=== PATIENT | female | born 1930 | race Caucasian/White ===

== ENCOUNTER 2017-03-01 18:52 | Inpatient (IN) | payer MEDICARE, OTHER ==
[~2017-03-01] VITALS: Ht 162.6 cm; Wt 80.0 kg
[~2017-03-01 18:52] MED LIST: GLIP-95 PO; VALS40TA2 PO
[2017-03-01 19:05] VITALS: Ht 162.6 cm; Wt 80.0 kg
[2017-03-01] MEDS ORDERED: IPRATROPIUM (NEB) 0.5 MG/2.5 ML AMP NEB STA (19:17)
[2017-03-01] MEDS ORDERED: ALBUTEROL 0.083% (NEB) 2.5 MG/3 ML AMP NEB STA (19:17)
[2017-03-01 19:29] LABS: AADO2 Arterial 84.6 mmHg (7.0-24.0); Allen Test ACCEPTAB; Arterial Base Excess 2.3 mmol/L (-3.0-3); Arterial COHb 0.5 % (0.0-3.0); Arterial Fraction of Oxyhgb 91.4 % (93.0-99.0); Arterial HCO3 29.3 mmol/L (22.0-26.0); Arterial MetHb 0.1 % (0.0-1.5); Arterial Total Hemglobin 13.2 g/dl (12.0-18.0); MODE NASAL CANNULA
[2017-03-01 19:48] LABS: ADD SCAN DIFF NO
[2017-03-01 19:50] LABS: ABNORMAL IP MESSAGE 1; BASOPHIL # 0.1 10^3/ul (0.0-0.1); BASOPHILS % 0.4 % (0.0-2.0); EOSINOPHILS % 0.1 % (0.0-7.0); HEMATOCRIT 39.8 % (37.0-47.0); HEMOGLOBIN 12.4 g/dl (12.0-16.0); LYMPHOCYTES # 1.1 10^3/ul (0.8-2.9); MEAN CORPUSCULAR HEMOGLOBIN 30.6 pg (29.0-33.0); MEAN CORPUSCULAR HGB CONC 31.2 g/dl (32.0-37.0); MEAN CORPUSCULAR VOLUME 98.3 fl (82.0-101.0); MEAN PLATELET VOLUME 11.2 fl (7.4-10.4); MONOCYTE # 1.5 10^3/ul (0.3-0.9); MONOCYTES % 8.4 % (0.0-11.0); NEUTROPHIL # 15.1 10^3/ul (1.6-7.5); NEUTROPHILS % 84.4 % (39.0-77.0); PLATELET COUNT 279 10^3/UL (140-415); RED BLOOD COUNT 4.05 10^6/ul (4.20-5.40); RED CELL DISTRIBUTION WIDTH 14.2 % (11.5-14.5)
--- NOTE | 2017-03-01 20:05 | RADRPT ---
PROCEDURE: XR Chest 1 View. CLINICAL INDICATION: Shortness of breath, sepsis. TECHNIQUE: AP view of the chest was obtained. COMPARISON: June 13, 2014 FINDINGS: The heart size is within normal limits. Calcified atherosclerosis is noted in the aorta. Diffuse mi ld interstitial prominence in both lungs appears chronic. No consolidations are identified. No pneu mothorax is seen. Calcified granuloma in the right upper lobe is stable. Osseous structures are inta ct. IMPRESSION: Calcified atherosclerosis in the aorta. Chronic mild interstitial prominence in both lungs. Stable calcified granuloma in the right upper lobe. RPTAT: AA .Porfirio Jensen MD, Date Time Electronically viewed and signed by .Porfirio Jensen MD, on 03/01/2017 20:05 .P/
[2017-03-01 20:06] LABS: INR 1.02; PROTIME 13.4 Sec (12.2-14.2)
[2017-03-01 20:07] LABS: PARTIAL THROMBOPLASTIN TIME 31.4 Sec (25.0-35.0)
[2017-03-01 20:09] LABS: ALBUMIN 4.5 g/dl (3.3-4.9); ALBUMIN/GLOBULIN RATIO 1.28; BILIRUBIN,INDIRECT 0.3 mg/dl (0-1.1); BILIRUBIN,TOTAL 0.3 mg/dl (0.2-1.3); CALCIUM 9.7 mg/dl (8.4-10.2); CREATININE 1.13 mg/dl (0.44-1.00); POTASSIUM 4.1 mmol/L (3.5-5.1)
[2017-03-01] MEDS ORDERED: CEFEPIME 2GM/50 ML (PMX) 50 ML IVPB STA (20:16)
[2017-03-01] MEDS ORDERED: SOD CHLORIDE 0.9% 1,000 ML IV STA ×2 (20:16→20:28)
[2017-03-01 20:23] LABS: TROPONIN-I 0.187 ng/ml (0.00-0.12)
--- NOTE | 2017-03-01 20:25 | ERA ---
ER Documentation Chief Complaint Date/Time DATE: 03/01/17 TIME: 20:20 Chief Complaint Productive cough with lots of yellow phlegm HPI This 86-year-old female presents to the emergency room for evaluation of shortness of breath and a cough productive of yellow phlegm. According to the patient and the patient's family member was at bedside this patient has had the symptoms for 2 days duration. She denies any fevers associated with them but does state that she is feeling short of breath. The patient does have a history of hypertension, hyperlipidemia, and diabetes. She denies any aggravating or relieving factors for her symptoms and came to the emergency room for evaluation ROS All systems reviewed and are negative except as per history of present illness. Medications Home Meds Reported Medications Valsartan* (Diovan*) Unknown Strength Tablet, PO DAILY, TAB 06/13/14 Glipizide* (Glipizide*) 10 Mg Tablet, 20 MG PO BID 10/03/11 Allergies Allergies: Coded Allergies: No Known Allergy (Unverified , 06/13/14) PMhx/Soc History of Surgery: No Anesthesia Reaction: No Hx Neurological Disorder: No Hx Respiratory Disorders: No Hx Cardiac Disorders: Yes (HIGH CHOLESTEROL) Hx Psychiatric Problems: No Hx Miscellaneous Medical Probl: Yes (dm) Hx Alcohol Use: No Hx Substance Use: No Hx Tobacco Use: Yes Smoking Status: Former smoker Physical Exam Vitals Vital Signs Date Time Temp Pulse Resp B/P Pulse Ox O2 Delivery O2 Flow Rate FiO2 03/01/17 19:38 98 3.0 03/01/17 19:38 Nasal Cannula 2 03/01/17 19:37 109 22 98 Nasal Cannula 3.0 03/01/17 19:05 125 28 123/53 77 Physical Exam INITIAL VITAL SIGNS: Reviewed by me GENERAL: The patient is elderly female, mild respiratory distress, HEENT: Pupils equal, round, and reactive to light. EOMI. There is no scleral icterus. NECK: C-spine is soft and supple, there is no meningismus. There is no cervical lymphadenopathy. LUNGS: Coarse breath sounds bilaterally HEART: Tachycardic, no murmurs, clicks, rubs or gallops. ABDOMEN: Soft, non-tender, non-distended. There are bowel sounds in all four quadrants. No rebound or guarding. EXTREMITIES: There is no peripheral cyanosis or edema. No focal swelling or erythema. NEUROLOGICAL: The patient moves all four extremities with 5/5 strength. Cranial nerves II - XII are intact. Normal gait. Alert and oriented SKIN: There is no apparent rash or petechiae. HEME/LYMPHATIC: There is no evidence of excessive bruising or lymphedema. PSYCHIATRIC: The patient does not appear anxious or depressed. Result Diagram: 03/01/17191403/01/171914 Results 24 hrs Laboratory Tests Test 03/01/17 19:15 03/01/17 19:17 White Blood Count 18.010^3/ul Red Blood Count 4.0510^6/ul Hemoglobin 12.4g/dl Hematocrit 39.8% Mean Corpuscular Volume 98.3fl Mean Corpuscular Hemoglobin 30.6pg Mean Corpuscular Hemoglobin Concent 31.2g/dl Red Cell Distribution Width 14.2% Platelet Count 01507^3/UL Mean Platelet Volume 11.2fl Neutrophils % 84.4% Lymphocytes % 6.0% Monocytes % 8.4% Eosinophils % 0.1% Basophils % 0.4% Nucleated Red Blood Cells % 0.0/100WBC Neutrophils # 15.110^3/ul Lymphocytes # 1.110^3/ul Monocytes # 1.510^3/ul Eosinophils # 0.010^3/ul Basophils # 0.110^3/ul Nucleated Red Blood Cells # 0.010^3/ul Prothrombin Time 13.4Sec Prothrombin Time Ratio 1.0 INR International Normalized Ratio 1.02 Activated Partial Thromboplast Time 31.4Sec Sodium Level 136mmol/L Potassium Level 4.1mmol/L Chloride Level 96mmol/L Carbon Dioxide Level 32mmol/L Anion Gap 12 Blood Urea Nitrogen 32mg/dl Creatinine 1.13mg/dl Glucose Level 315mg/dl Lactic Acid Level 2.5mmol/L Calcium Level 9.7mg/dl Total Bilirubin 0.3mg/dl Direct Bilirubin 0.00mg/dl Indirect Bilirubin 0.3mg/dl Aspartate Amino Transf (AST/SGOT) 23IU/L Alanine Aminotransferase (ALT/SGPT) 25IU/L Alkaline Phosphatase 137IU/L Troponin I Pending Total Protein 8.0g/dl Albumin 4.5g/dl Globulin 3.50g/dl Albumin/Globulin Ratio 1.28 Blood Gas Specimen Source Blood arterial Arterial Blood Date Drawn 03/01/2017 7:20:43 PM Arterial Blood pH (Temp corrected) 7.339 Arterial Blood pCO2 (Temp correct) 55.6mmhg Arterial Blood pO2 (Temp corrected) 64.0mmHG Arterial Blood HCO3 29.3mmol/L Arterial Blood Base Excess 2.3mmol/L Arterial Blood Oxygen Saturation 92.0mmHG Pablo Test ACCEPTAB Arterial Blood Gas Puncture Site Right Radial Arterial Blood Carboxyhemoglobin 0.5% Arterial Blood Methemoglobin 0.1% Blood Gas A-a O2 Differential 84.6mmHg Oxyhemoglobin Percent 91.4% Total Hemoglobin 13.2g/dl Blood Gas Temperature 37.0C Blood Gas Modality NASAL CANNULA FiO2 30.0% Blood Gas Notified Whom MG Blood Gas Notified Time 03/01/2017 7:29:12 PM Current Medications Medications (Trade) Dose Ordered Sig/All Route PRN Reason Start Time Stop Time Status Last Admin Dose Admin Albuterol (Proventil 0.083% (Neb)) 5 mg ONCE STAT NEB 03/01/17 19:17 03/01/17 19:18 DC 03/01/17 19:37 Ipratropium Dewitt 0.5 mg 0.5 mg ONCE STAT NEB 03/01/17 19:17 03/01/17 19:18 DC 03/01/17 19:36 Cefepime HCl 50 ml @ 100 mls/hr ONCE STAT IVPB 03/01/17 20:16 03/01/17 20:45 Vancomycin HCl 250 ml @ 125 mls/hr ONCE ONCE IVPB 03/01/17 20:30 03/01/17 22:29 Sodium Chloride (NS) 1,000 ml @ 1,000 mls/hr Q1H STAT IV 03/01/17 20:16 03/01/17 21:15 Procedures/MDM EKG: Rate/Rhythm: Sinus tachycardia with premature atrial, QRS, ST, T-waves: [No changes consistent w/ acute ischemia] Impression: [No evidence of ischemia or arrhythmia] Chest X-ray 1V Interpreted by me: Soft Tissue: No acute abnormalities Bones: No acute abnormalities Mediastinum/Cardiac Silhouette/Lungs: [No acute abnormalities] This 86-year-old female presents to the emergency room for evaluation of a cough and shortness of breath. When I evaluated this patient she was tachypnea , tachycardic, and did have a pulse oxygen level of 77% on room air. This patient did have a septic workup. She does have leukocytosis, and an elevated troponin. This patient's chest x-ray does not show any acute infiltrate however given the patient's clinical picture this patient was started on vancomycin and cefepime broad-spectrum coverage for possible pneumonia. This patient is hemodynamically stable at this time. She was not given 30 cc/kg of IV normal saline due to the fact that she does have signs of peripheral edema on my examination with 1+ pitting edema in the bilateral lower extremities. The patient was given 325 mg of aspirin. She will be placed in for admission at this time on our telemetry floor under the care of Dr. Kurtz. Cardiac Critical Care: Excluding all billable procedures Time: 35 minutes Treatments/Evaluations: Close monitoring for dangerous arrhythmia and cardiovascular collapse, while treating with advance cardiac medications and techniques. Departure Diagnosis: Primary Impression: Acute respiratory failure with hypoxia Additional Impressions: Sepsis Non-ST elevation PR (NSTEMI) Renal insufficiency Condition: Serious SHIRA SUMNER DO Mar 01, 2017 20:25
[2017-03-01] MEDS ORDERED: METHYLPREDNISOLONE 125 MG INJ IV STA (20:27)
[2017-03-01] MEDS ORDERED: ALBUTEROL 0.5% (NEB) 2.5 MG/0.5 ML AMP INH STA (20:27)
[2017-03-01] MEDS ORDERED: IPRATROPIUM (NEB) 0.5 MG/2.5 ML AMP INH STA (20:27)
[2017-03-01] MEDS ORDERED: ASPIRIN 325 MG TAB PO ONE (20:30)
[2017-03-01] MEDS ORDERED: ACETAMINOPHEN 325 MG TAB PO PRN (20:30)
[2017-03-01] MEDS ORDERED: VANCOMYCIN 1 GM (PMX) 250 ML IVPB ONE (20:30)
[2017-03-01] MEDS ORDERED: ONDANSETRON 4 MG INJ IV PRN (20:30)
[2017-03-01 20:42] VITALS: TEMP 99.3
[2017-03-01] MEDS ORDERED: VALS80TA2 PO (20:45)
[2017-03-01] MEDS ORDERED: ASPI-664 PO (20:46)
[2017-03-01] MEDS ORDERED: DICL75TA2 PO (20:47)
[2017-03-01] MEDS ORDERED: DONE5TAB46 PO (20:48)
[2017-03-01] MEDS ORDERED: ATOR40TA68 PO (20:49)
[2017-03-01] MEDS ORDERED: SITA100T8 PO (20:50)
[2017-03-01] MEDS ORDERED: METF750T2 PO (20:50)
[2017-03-01] MEDS ORDERED: INSU200I4 SQ (20:51)
[2017-03-01] MEDS ORDERED: IOHEXOL 350MG/ML 50 ML BTL ONE (20:57)
[2017-03-01] MEDS ORDERED: SOD CHLORIDE 0.9% 100 ML ONE (20:57)
[2017-03-01] MEDS ORDERED: IOHEXOL 100 ML ONE (20:57)
[2017-03-01 21:44] LABS: ADD UMIC YES; UR AMORPHOUS CRYSTAL FEW /HPF (NONE SEEN); UR ASCORBIC ACID NEGATIVE (NEGATIVE); UR BACTERIA FEW /HPF (NONE SEEN); UR BILIRUBIN (Dip) NEGATIVE (NEGATIVE); UR BLOOD (Dip) NEGATIVE (NEGATIVE); UR CLARITY CLOUDY (CLEAR); UR COLOR YELLOW (YELLOW); UR GLUCOSE (Dip) 1+ mg/dL (NEGATIVE); UR KETONES (Dip) NEGATIVE (NEGATIVE); UR LEUKOCYTE ESTERASE (Dip) NEGATIVE Leu/ul (NEGATIVE); UR MUCUS FEW /HPF (NONE SEEN); UR NITRITE (Dip) NEGATIVE (NEGATIVE); UR RBC 1 /HPF (0-5); UR SPECIFIC GRAVITY (Dip) 1.019 (1.003-1.030); UR SQUAMOUS EPITHELIAL CELL FEW /HPF (FEW); UR TOTAL PROTEIN (Dip) 2+ mg/dl (NEGATIVE); UR UROBILINOGEN (Dip) NEGATIVE (NEGATIVE)
[2017-03-01] MEDS ORDERED: LORAZEPAM 2 MG INJ IV ONE (22:00)
[2017-03-01] MEDS ORDERED: SUCCINYLCHOLINE CHLORIDE 100 MG/5 ML SYG IV ONE (23:00)
[2017-03-01] MEDS ORDERED: MIDAZOLAM 1 MG/ML 2 ML INJ ONE (23:00)
[2017-03-01] MEDS ORDERED: DILTIAZEM 25 MG INJ IV ONE (23:30)
[2017-03-01] MEDS ORDERED: PROPOFOL 100 ML IV ONE (23:30)
[2017-03-01] MEDS ORDERED: ETOMIDATE 20 MG INJ IV ONE (23:30)
[2017-03-01 23:52] LABS: AADO2 Arterial 194.3 mmHg (7.0-24.0); Allen Test ACCEPTAB; Arterial Base Excess -6.7 mmol/L (-3.0-3); Arterial COHb 0.3 % (0.0-3.0); Arterial Fraction of Oxyhgb 98.8 % (93.0-99.0); Arterial HCO3 22.9 mmol/L (22.0-26.0); Arterial MetHb 0.3 % (0.0-1.5); Arterial Total Hemglobin 11.9 g/dl (12.0-18.0); MODE VENT - AC
--- NOTE | 2017-03-01 23:55 | RADRPT ---
PROCEDURE: Portable chest x-ray. CLINICAL INDICATION: Endotracheal tube placement. TECHNIQUE: Portable AP view of the chest. COMPARISON: 06/13/2014. FINDINGS: An endotracheal tube terminates 2.4 cm above the darling. There are mildly prominent interstitial jericho g markings, increased since the prior examination. The cardiac silhouette is magnified. No pleural effusion is seen. There is no pneumothorax. IMPRESSION: 1. Endotracheal tube tip 2.4 cm above the darling. 2. Mildly prominent interstitial lung markings, increased since the prior examination. These are no nspecific but could represent interstitial edema, a viral chest infection, and/or chronic lung enrique es. RPTAT: HTAR .Jacinto Bender MD, MD Date Time Electronically viewed and signed by .Jacinto Bender MD, on 03/01/2017 23:55 .R/
[2017-03-02] VITALS (91 sets, daily range): BP systolic 68–153; BP diastolic 29–74; PULSE 64–152; RESP 18–22
[2017-03-02] MEDS ORDERED: SUCCINYLCHOLINE CHLORIDE 100 MG/5 ML SYG IV ONE
--- NOTE | 2017-03-02 00:03 | RADRPT ---
PROCEDURE: CTA Chest and pulmonary angiogram. CLINICAL INDICATION: Rule out pulmonary emboli, shortness of breath, sepsis TECHNIQUE: CT scan of the chest and CT pulmonary angiogram was performed on a multidetector high-r esolution CT scanner. High-resolution thin slice coronal and sagittal imaging was obtained from the axial source images. No 3-D/maximum intensity projection reformatted imaging was performed. The pat ient was examined following the intravenous administration of 80 cc of Omnipaque-350. The images wer e reviewed on a PACS workstation. The total exam CTDI equals 22.53 +14.51 mGy, and the total exam DL P equals 560.17 mGy-cm. One or more the following dose reduction techniques were utilized: Automated exposure control, adjus tment of the mA and / or kV according to patient's size, or use of iterative reconstruction techniqu e. COMPARISON: Chest x-ray of 03/01/2017 FINDINGS: No filling defects suggestive of emboli are seen in main, lobar or segmental pulmonary arteries. At herosclerotic changes including calcification in thoracoabdominal aorta and great vessels. Ulcerativ e plaque is apparent in the descending thoracic aorta. No thoracic aortic aneurysm or dissection is seen. Coronary artery calcification. Calcification in bilateral renal and superior mesenteric and splenic arteries. No enlarged mediastinal lymph nodes are seen. Less than 1 cm short-axis lymph nod es are seen in the mediastinum and bilateral lung sofía. Calcified lymph nodes in the right hilum con sistent with old granulomatous disease . No pleural effusion is seen. Scattered linear atelectasis/f ibrosis is seen in the lungs. Calcified granuloma in the right upper lung lobe. "Tree in bud" opac ities in right lower lobe and right middle lobe consistent with infectious/inflammatory bronchioliti s. Peribronchial thickening in bilateral lower lobes which could be secondary to bronchitis and mild cylindrical bronchiectasis. Likely minimal secretions in the bilateral main bronchi. Small hi atal hernia apparent. Appearance of nonspecific mild diffuse esophageal wall thickening in the mid t o lower thoracic esophagus which could be secondary to esophagitis. Calcified granulomas in spleen. No adrenal abnormality is seen. Degenerative changes in thoracic spine. IMPRESSION: No evidence of pulmonary emboli. Atherosclerosis. Ulcerative plaque in the descending thoracic aort a. "Tree in bud" opacities in right lower lobe and right middle lobe consistent with infectious/infl ammatory bronchiolitis. Peribronchial thickening in bilateral lower lobes which could be secondary t o bronchitis and mild cylindrical bronchiectasis. Small hiatal hernia apparent. Appearance of nonsp ecific mild diffuse esophageal wall thickening in the mid to lower thoracic esophagus which could be secondary to esophagitis. Please see above. RPTAT: HJES .Domenic Brown MD, MD Date Time Electronically viewed and signed by .Domenic Brown MD, MD on 03/02/2017 00:02 .S/
[2017-03-02] MEDS ORDERED: ACETAMINOPHEN 650 MG SUPP PR PRN (00:30)
[2017-03-02] MEDS ORDERED: GLUCOSE GEL 15 GRAM TUBE PO PRN ×2 (00:30)
[2017-03-02] MEDS ORDERED: DEXTROSE 50% 50 ML SYRINGE IV PRN ×4 (00:30→04:30)
[2017-03-02] MEDS ORDERED: GLUCAGON 1 MG INJ IM PRN (00:30)
[2017-03-02] MEDS ORDERED: VANCOMYCIN IV PER PHARMACY XX SCH (00:30)
[2017-03-02] MEDS ORDERED: SOD CHLORIDE 0.9% 1,000 ML IV ONE ×2 (00:30→02:00)
[2017-03-02] MEDS ORDERED: ALBUTEROL 18 GM INHALER INH PRN (00:30)
[2017-03-02] MEDS ORDERED: GLUCOSE GEL 15 GRAM TUBE BUCCAL PRN (00:30)
[2017-03-02] MEDS: PIPER-TAZO 3.375 GM IV (PMX) 100 ML IVPB SCH ×4 (00:50→21:46)
[2017-03-02] MEDS ORDERED: INSULIN ASPART [NOVOLOG] 3 ML PEN SC SCH (01:00)
[2017-03-02] MEDS ORDERED: MIDAZOLAM 1 MG/ML 2 ML INJ IV ONE (01:00)
--- NOTE | 2017-03-02 01:18 | EN ---
Date/Time of Note Date/Time of Note DATE: 03/02/17 TIME: 01:17 ER Progress Note Patient decompensated here in the ER. Became severely obtunded. Necessitated intubation. Blood pressure also dropped precipitously. Central line placed as well. Endotracheal Intubation by me: Pre assessment performed. See preceding note for details. Pre-oxygenation performed with 100% oxygen RSI: Performed w/o complication or hypoxic events. Medications as ordered. Blade: [Mac 4] ET Tube: 7.5 cm Depth: [23 cm at the lip Intubation confirmed by colorimetric CO2, equal breath sounds, quiet over the stomach. Chest X-ray 1V Interpreted by me: 2 cm above the darling ET tube. Normal soft tissue, No pneumothorax. Central Line Placement by me: Patient consented, sterilely draped, full prep, gown, glove, mask, time out performed. Anesthesia: 1% lidocaine locally Location: Left subclavian Device: Multiple lumen Technique: Seldinger technique. Secured with suture. Results: Venous return from all ports with easy saline flush. No complications. Guide wire retrieved and disposed of. [Chest X-ray 1V Interpreted by me: Central line in SVC, Normal soft tissue, No evidence of pneumothorax.] Critical Care: Time: 45 minutes Treatments/Evaluations: Close monitoring and treatment of unstable vital signs, cardiorespiratory, and neurologic status, while maintaining tight balance of fluid, respiratory, and cardiac interventions. This time is independent of separate billable procedure time AIXA SANDRA Mar 02, 2017 01:18
[2017-03-02] MEDS ORDERED: AZITHROMYCIN 500MG/NS (PMX) 250 ML IVPB ONE (01:30)
[2017-03-02] MEDS ORDERED: DILTIAZEM 25 MG INJ IV ONE ×2 (02:00→02:30)
[2017-03-02] MEDS ORDERED: ACCU-CHEK XX SCH (02:00)
[2017-03-02] MEDS: SOD CHLORIDE 0.9% 1,000 ML IV SCH ×4 (02:27→21:16)
[2017-03-02] MEDS ORDERED: SOD CHLORIDE 0.9% 500 ML IV ONE (02:30)
[2017-03-02 02:36] LABS: Arterial Base Excess -3.5 mmol/L (-3.0-3); Arterial COHb 0.3 % (0.0-3.0); Arterial Fraction of Oxyhgb 94.3 % (93.0-99.0); Arterial HCO3 22.7 mmol/L (22.0-26.0); Arterial MetHb 0.3 % (0.0-1.5); Arterial Total Hemglobin 11.4 g/dl (12.0-18.0); Blood Gas Low PEEP Setting 0 cmH2O; MODE VENT - AC
[2017-03-02] MEDS ORDERED: DILTIAZEM-D5W 125MG/125ML DRIP 125 ML ONE (02:58)
[2017-03-02] MEDS ORDERED: DILTIAZEM-D5W 125MG/125ML DRIP 125 ML IV SCH (03:00)
--- NOTE | 2017-03-02 03:18 | RADRPT ---
PROCEDURE: XR Chest. CLINICAL INDICATION: Post central line TECHNIQUE: Single frontal view of the chest was obtained COMPARISON: Chest x-ray of 03/01/2017 at 11:20 p.m. and CTA chest of 03/01/2017 FINDINGS: The tip of the endotracheal tube is approximately 2.1 cm above the darling. Left subclavian catheter has been placed into the superior vena cava with the tip near the atriocaval junction. No pneumotho rax is seen. The heart is not enlarged. Calcification in the aortic arch. Diffuse bilateral increas ed interstitial lung densities again seen. There is no pleural effusion seen. ECG lead projected over chest. IMPRESSION: Left subclavian catheter has been placed into the superior vena cava with the tip near the atriocava l junction. No pneumothorax is seen. Diffuse bilateral increased interstitial lung densities likely inflammatory/chronic again seen accentuated by hypoinflation of the lungs. Please see above. RPTAT: HJES .Domenic Brown MD, MD Date Time Electronically viewed and signed by .Domenic Brown MD, on 03/02/2017 03:18 .S/
--- NOTE | 2017-03-02 03:49 | HP ---
Date/Time of Note Date/Time of Note DATE: 03/02/17 TIME: 03:34 Assessment/Plan VTE Prophylaxis VTE Prophylaxis Intervention: SCD's Lines/Catheters IV Catheter Type (from Nrs): Central Line Central line still needed: Yes (Hypertension) Urinary Cath still in place: Yes Reason Cath still needed: other (indicate) ( critical condition) Assessment/Plan Chief Complaint/Hosp Course This is a 86-year-old female being admitted to the ICU floor for: #1 acute respiratory failure: Patient needed urgent intubation as she acutely decompensated. This likely could be secondary to underlying respiratory infection as demonstrated on CT scan. Continue mechanical ventilation at this time. Repeat ABG. Adjust vent settings. Consult pulmonology #2 Severe sepsis: White blood cell count of 18 with a lactate above 4. CT scan showing possible respiratory infection. At the current time we will treat patient with IV vancomycin and Zosyn. Vasopressor support as needed. IV fluid hydration with normal saline. #3 tachycardia: Likely secondary to #2 and #1. Patient received Cardizem IV push which did help resolve the tachycardia. If this persists despite fluid resuscitation will start Cardizem drip. Will consult cardiology. Will trend troponins. Will order an echocardiogram. #4 suspected esophagitis: CAT scan showed presence of possible esophagitis. At the current time will start patient on IV fluconazole. Will consult endocrinology for further treatment strategy. May need GI consult. #5diabetes mellitus: Check A1c start patient on insulin sliding scale. #6hypertension: At the current time will hold home antihypertensive medication secondary to patient's hypotension. #7 DVT and GI prophylaxis: SCDs, Protonix Further treatment strategy will be implemented as per the clinical course. Problems: HPI/ROS Admit Date/Time Admit Date/Time Mar 01, 2017 at 20:20 Hx of Present Illness Chief complaint: Shortness of breath, cough The following information below was obtained from the ED physician documentation. This 86-year-old female presented to the emergency room for evaluation of shortness of breath and a cough productive of yellow phlegm. According to the patient and the patient's family member was at bedside this patient has had the symptoms for 2 days duration. She denies any fevers associated with them but does state that she is feeling short of breath. The patient does have a history of hypertension, hyperlipidemia, and diabetes. She denies any aggravating or relieving factors for her symptoms and came to the emergency room for evaluation. After returning from the CAT scan, patient decompensated and was obtunded and it was necessary to intubate her. Patient was then subsequently admitted to the ICU. Allergies: NKDA Medications: See ANETTE COELHO Subjective hx not possible: pt critical, pt critical status PMH/Family/Social Past Medical History Hyperlipidemia, diabetes, hypertension Past Surgical History Past Surgical Hx: no surgical history Family History Significant Family History: no pertinent family hx Social History Smoking Status: Former smoker Exam/Review of Systems Vital Signs Vitals Vital Signs Date Time Temp Pulse Resp B/P Pulse Ox O2 Delivery O2 Flow Rate FiO2 03/02/17 03:15 145 20 95 40 03/02/17 03:00 116/64 Mechanical Ventilator 03/02/17 02:07 97.8 03/01/17 22:02 3.0 Exam Exam General: Patient is currently intubated. HEENT: Atraumatic, normocephalic. The pupils are equal, round and reactive. Extraocular motor are intact, intubated Neck: Supple with full range of motion. No rigidity or meningismus Chest: Nontender Lungs: Coarse breath sounds at the bases. Heart: Normal S1-S2, Regular rhythm and rate. No murmur, S3, or S4 Abdomen: Soft , nontender, nondistended , bowel sounds are present. No guarding no rebound tenderness , No masses or organomegaly. No costovertebral temporal angle mass Extremities: Normal to inspection, no edema no cyanosis Neurologic: Unable to assess secondary to patient being intubated. Labs Result Diagram: 03/01/17191403/01/171914 Medications Medications Current Medications Sodium Chloride (NS) 1,000 ml @ 70 mls/hr [id number] IV Last administered on 03/02 02:27; Admin Dose 70 MLS/HR; Start 03/02/17 at 00:12 Acetaminophen (Tylenol Supp) 650 mg Q4H PRN SC PAIN LEVEL 1-3 OR FEVER; Start 03/02/17 at 00:30 Pantoprazole (Protonix Iv) 40 mg DAILY@06 IV ; Start 03/02/17 at 06:00 Insulin Aspart NOVOLOG *MODERATE* ALGORI... Q4 SC Last administered on 02:24; Admin Dose 12 UNIT; Start 03/02/17 at 01:00 Piperacillin Sod/ Tazobactam Sod (Zosyn 3.375gm/ 100 ml (Pmx)) 100 ml @ 200 mls /hr Q8 IVPB Last administered on 03/02/17 00:50; Admin Dose 200 MLS/HR; Start 03/02/17 at 00:30 Miscellaneous Information 1 ea NOTE XX ; Start 03/02/17 at 00:30 Glucose (Glutose) 15 gm Q15M PRN PO DECREASED GLUCOSE; Start 03/02/17 at 00:30 Glucose (Glutose) 22.5 gm Q15M PRN PO DECREASED GLUCOSE; Start 03/02/17 at 00: 30 Dextrose (D50w Syringe) 25 ml Q15M PRN IV DECREASED GLUCOSE; Start 03/02/17 at 00:30 Dextrose (D50w Syringe) 50 ml Q15M PRN IV DECREASED GLUCOSE; Start 03/02/17 at 00:30 Glucagon (Glucagen) 1 mg Q15M PRN IM DECREASED GLUCOSE; Start 03/02/17 at 00:30 Glucose 15 gm 15 gm Q15M PRN BUCCAL DECREASED GLUCOSE; Start 03/02/17 at 00:30 Vancomycin HCl 250 ml @ 125 mls/hr Q24H IVPB ; Start 03/02/17 at 17:00 Norepinephrine 16 mg/Dextrose 500 ml @ 1.87 mls/hr TITRATE IV Last administered on 03/02/17 02:23; Admin Dose 9.37 MLS/HR; Start 03/02/17 at 01:00 Diltiazem HCl (Cardizem-D5W 125 Mg/125 ml Drip) 125 ml @ 5 mls/hr TITRATE IV Last administered on 03/02/17 03:08; Admin Dose 5 MLS/HR; Start 03/02/17 at 03: 00 MICHELLE MORENO Mar 02, 2017 03:45
[2017-03-02] MEDS: ACCU-CHEK XX SCH ×20 (04:33→23:37)
[2017-03-02] MEDS: INSULIN HUMAN REGULAR 100 UNIT in SOD CHLORIDE 0.9% 99 ML IV SCH (05:09)
[2017-03-02 05:30] LABS: ABNORMAL IP MESSAGE 1; ADD SCAN DIFF NO; BASOPHIL # 0.1 10^3/ul (0.0-0.1); BASOPHILS % 0.3 % (0.0-2.0); HEMATOCRIT 34.2 % (37.0-47.0); HEMOGLOBIN 10.5 g/dl (12.0-16.0); LYMPHOCYTES # 0.6 10^3/ul (0.8-2.9); LYMPHOCYTES % 2.5 % (15.0-51.0); MEAN CORPUSCULAR HEMOGLOBIN 30.3 pg (29.0-33.0); MEAN CORPUSCULAR HGB CONC 30.7 g/dl (32.0-37.0); MEAN CORPUSCULAR VOLUME 98.8 fl (82.0-101.0); MEAN PLATELET VOLUME 11.4 fl (7.4-10.4); MONOCYTE # 0.9 10^3/ul (0.3-0.9); MONOCYTES % 3.7 % (0.0-11.0); NEUTROPHIL # 22.2 10^3/ul (1.6-7.5); PLATELET COUNT 274 10^3/UL (140-415); RED BLOOD COUNT 3.46 10^6/ul (4.20-5.40); RED CELL DISTRIBUTION WIDTH 14.5 % (11.5-14.5); WHITE BLOOD COUNT 23.9 10^3/ul (4.8-10.8)
[2017-03-02] MEDS: FLUCONAZOLE 200 MG/NS (PMX) 100 ML IVPB SCH (05:33)
[2017-03-02 05:36] LABS: NEUTROPHILS % 92.8 % (39.0-77.0)
[2017-03-02 06:19] LABS: CK-MB 4.55 ng/ml (0.0-2.4); TROPONIN-I 0.424 ng/ml (0.00-0.12)
[2017-03-02 06:33] LABS: ALBUMIN 3.1 g/dl (3.3-4.9); ALBUMIN/GLOBULIN RATIO 1.29; CALCIUM 8.2 mg/dl (8.4-10.2); CREATININE 0.83 mg/dl (0.44-1.00); TOTAL PROTEIN 5.5 g/dl (6.1-8.1)
[2017-03-02] MEDS: PANTOPRAZOLE 40 MG INJ IV SCH (06:41)
[2017-03-02 08:17] LABS: AADO2 Arterial 147.3 mmHg (7.0-24.0); Allen Test ACCEPTAB; Arterial Base Excess -2.7 mmol/L (-3.0-3); Arterial COHb 0.1 % (0.0-3.0); Arterial Fraction of Oxyhgb 97.3 % (93.0-99.0); Arterial HCO3 21.8 mmol/L (22.0-26.0); Arterial MetHb 0.2 % (0.0-1.5); Arterial Total Hemglobin 11.7 g/dl (12.0-18.0); MODE VENT - AC
--- NOTE | 2017-03-02 09:32 | CONS ---
Date/Time of Note Date/Time of Note DATE: 03/02/17 TIME: 09:20 Assessment/Plan Assessment/Plan Additional Assessment/Plan 1. P afib with RVR 2. acute hypoxemic respiratory failure: intubated now 3. + troponin: c.w NSTEMI due to demand ischemia due to above 4. DM and severely elevated glucose. 5. dyslipidemia 6. pneumonia/ sepsis 7. shock : appear to be related to sepsis: currently on levophed 8. hx memory impairment ASA daily plavix dc cardizem drip and will give IV cardizem prn only. will give a dose of dig now amiodarone drip for now DM Control with insulin drip for now. will start betablocker once BP is more stable and off of levophed will check echo will repeat cardiac enzymes in am replace lytes including K and Mg. cont ICU care Thank you for this referral. I will continue to follow along with you Consultation Date/Type/Reason Admit Date/Time Mar 01, 2017 at 20:20 Date of Consultation: Mar 02, 2017 Reason for Consultation AFIB. abnormal trop Thank you for his referral. This is a pleasant 89-year-old female with history of hypertension diabetes dyslipidemia was admitted with respiratory failure and possible pneumonia. Patient overnight was noted to be going to atrial fibrillation with ventricular response. She has been placed on Cardizem drip. She has converted to sinus rhythm since then heart has remained stable. She has very frequent PAC PVCs as well. Patient himself is intubated unable to provide history to me for. Chart was reviewed discussed with staff and physician conduct an active issue and nursing staff in the ICU. Troponin was also mildly elevated. There is no report of chest pain or pressure that I could obtain however again patient unable to history intubated on the vent. Patient has been sepsis and shock as well as been started on Levophed drip although slowly is coming off of it now. Patient currently intubated on the vent in the ICU on Levophed drip. Medications were reviewed as per medical records reviewed personally reviewed. Past medical history: 1. Diabetes 2. Hypertension 3. Dyslipidemia 4. Dementia. Social history patient with no reported active tobacco alcohol drug abuse. Family history no reported history of eloquently artery disease is as far as I could obtain. allergy: NKDA Review of system as above mentioned medical to obtain only however limited history could obtain from the patient. Past Surgical History Past Surgical Hx: no surgical history Social History Smoking Status: Former smoker Exam/Review of Systems Vital Signs Vitals Vital Signs Date Time Temp Pulse Resp B/P Pulse Ox O2 Delivery O2 Flow Rate FiO2 03/02/17 08:15 74 20 105/48 98 Mechanical Ventilator 03/02/17 08:00 98.7 03/02/17 05:53 40 03/01/17 22:02 3.0 Intake and Output 03/01/17 03/01/17 03/02/17 14:59 22:59 06:59 Intake Total 1066.36 ml Output Total 665 ml Balance 401.36 ml Exam General: intubated on vent. HEENT: NC/AT. pupils are constricted. round. NECK: NO JVD. no stridor. CV: RRR. systolic murmur; no gallop or rubs. PULM: no wheezing or rhonchi. GI: SOFT, NT, ND, no rebound or guarding Extremity: trace B/L LE edema. no clubbing. neuro: sedated . Psych: calm and pleasant rectal: deferred : normal ECG: sinus tachy with nonspecific St abn ECG 03/01/17 at 23;10: Afib RVR septal infarct CXR was reviewed. Results Result Diagram: 03/02/17 0500 03/02/17 0500 Results 24 hrs Laboratory Tests Test 03/01/17 19:15 03/01/17 19:17 03/01/17 21:13 03/01/17 21:50 White Blood Count 18.0 #H Red Blood Count 4.05 L Hemoglobin 12.4 Hematocrit 39.8 Mean Corpuscular Volume 98.3 Mean Corpuscular Hemoglobin 30.6 Mean Corpuscular Hemoglobin Concent 31.2 L Red Cell Distribution Width 14.2 Platelet Count 279 Mean Platelet Volume 11.2 #H Neutrophils % 84.4 H Lymphocytes % 6.0 L Monocytes % 8.4 Eosinophils % 0.1 Basophils % 0.4 Nucleated Red Blood Cells % 0.0 Neutrophils # 15.1 H Lymphocytes # 1.1 Monocytes # 1.5 H Eosinophils # 0.0 Basophils # 0.1 Nucleated Red Blood Cells # 0.0 Prothrombin Time 13.4 Prothrombin Time Ratio 1.0 INR International Normalized Ratio 1.02 Activated Partial Thromboplast Time 31.4 Sodium Level 136 Potassium Level 4.1 Chloride Level 96 L Carbon Dioxide Level 32 H Anion Gap 12 Blood Urea Nitrogen 32 H Creatinine 1.13 H Glucose Level 315 H Lactic Acid Level 2.5 H 4.2 *H Calcium Level 9.7 Total Bilirubin 0.3 Direct Bilirubin 0.00 Indirect Bilirubin 0.3 Aspartate Amino Transf (AST/SGOT) 23 Alanine Aminotransferase (ALT/SGPT) 25 Alkaline Phosphatase 137 H Troponin I 0.187 *H B-Type Natriuretic Peptide 2260 H Total Protein 8.0 Albumin 4.5 Globulin 3.50 H Albumin/Globulin Ratio 1.28 Blood Gas Specimen Source Blood arterial Arterial Blood Date Drawn 03/01/2017 7:20:43 PM Arterial Blood pH (Temp corrected) 7.339 L Arterial Blood pCO2 (Temp correct) 55.6 H Arterial Blood pO2 (Temp corrected) 64.0 L Arterial Blood HCO3 29.3 H Arterial Blood Base Excess 2.3 Arterial Blood Oxygen Saturation 92.0 L Pablo Test ACCEPTAB Arterial Blood Gas Puncture Site Right Radial Arterial Blood Carboxyhemoglobin 0.5 Arterial Blood Methemoglobin 0.1 Blood Gas A-a O2 Differential 84.6 H Oxyhemoglobin Percent 91.4 L Total Hemoglobin 13.2 Blood Gas Temperature 37.0 Blood Gas Modality NASAL CANNULA FiO2 30.0 Blood Gas Notified Whom MG Blood Gas Notified Time 03/01/2017 7:29:12 PM Urine Color YELLOW Urine Clarity CLOUDY A Urine pH 5.0 Urine Specific [place] 1.019 Urine Ketones NEGATIVE Urine Nitrite NEGATIVE Urine Bilirubin NEGATIVE Urine Urobilinogen NEGATIVE Urine Leukocyte Esterase NEGATIVE Urine Microscopic RBC 1 Urine Microscopic WBC 4 Urine Squamous Epithelial Cells FEW Urine Amorphous Crystals FEW A Urine Bacteria FEW A Urine Mucus FEW A Urine Hemoglobin NEGATIVE Urine Glucose 1+ H Urine Total Protein 2+ H Test 03/01/17 23:10 03/01/17 23:20 03/01/17 23:40 03/02/17 02:00 Lactic Acid Level 6.1 *H Bedside Glucose 444 *H 466 *H Blood Gas Specimen Source Blood arterial Arterial Blood Date Drawn 03/01/2017 11:47:36 PM Arterial Blood pH (Temp corrected) 7.151 *L Arterial Blood pCO2 (Temp correct) 67.0 H Arterial Blood pO2 (Temp corrected) 451.7 H Arterial Blood HCO3 22.9 Arterial Blood Base Excess -6.7 L Arterial Blood Oxygen Saturation 99.4 Pablo Test ACCEPTAB Arterial Blood Gas Puncture Site Right Radial Arterial Blood Carboxyhemoglobin 0.3 Arterial Blood Methemoglobin 0.3 Blood Gas A-a O2 Differential 194.3 H Oxyhemoglobin Percent 98.8 Total Hemoglobin 11.9 L Blood Gas Temperature 37.0 Blood Gas Respiration Rate 16.0 Blood Gas Actual Respiration Rate 16 Blood Gas Modality VENT - AC FiO2 100.0 Blood Gas Tidal Volume 500.0 Blood Gas Inspiratory Pressure 37.0 Blood Gas Critical Value Read Back Zachery SANDRA MD Blood Gas Notified Whom MG Blood Gas Notified Time 03/01/2017 11:52:27 PM Test 03/02/17 02:04 03/02/17 02:17 03/02/17 04:09 03/02/17 05:00 Lactic Acid Level 2.3 H Blood Gas Specimen Source Blood arterial Arterial Blood Date Drawn 03/02/2017 2:25:52 AM Arterial Blood pH (Temp corrected) 7.315 L Arterial Blood pCO2 (Temp correct) 45.6 H Arterial Blood pO2 (Temp corrected) 74.8 L Arterial Blood HCO3 22.7 Arterial Blood Base Excess -3.5 L Arterial Blood Oxygen Saturation 94.9 L Pablo Test N/A Arterial Blood Gas Puncture Site Right Brachial Arterial Blood Carboxyhemoglobin 0.3 Arterial Blood Methemoglobin 0.3 Blood Gas A-a O2 Differential 158.0 H Oxyhemoglobin Percent 94.3 Total Hemoglobin 11.4 L Blood Gas Temperature 37.0 Blood Gas Respiration Rate 20.0 Blood Gas Actual Respiration Rate 20 Blood Gas Modality VENT - AC FiO2 40.0 Blood Gas Tidal Volume 500.0 Blood Gas Low PEEP Setting 0 Blood Gas Notified Whom UP Blood Gas Notified Time 03/02/2017 2:36:28 AM Bedside Glucose 436 *H White Blood Count 23.9 #H Red Blood Count 3.46 L Hemoglobin 10.5 L Hematocrit 34.2 L Mean Corpuscular Volume 98.8 Mean Corpuscular Hemoglobin 30.3 Mean Corpuscular Hemoglobin Concent 30.7 L Red Cell Distribution Width 14.5 Platelet Count 274 Mean Platelet Volume 11.4 H Neutrophils % 92.8 H Lymphocytes % 2.5 L Monocytes % 3.7 Eosinophils % 0.0 Basophils % 0.3 Nucleated Red Blood Cells % 0.0 Neutrophils # 22.2 H Lymphocytes # 0.6 L Monocytes # 0.9 Eosinophils # 0.0 Basophils # 0.1 Nucleated Red Blood Cells # 0.0 Sodium Level 132 L Potassium Level 4.0 Chloride Level 104 Carbon Dioxide Level 25 Anion Gap 7 L Blood Urea Nitrogen 32 H Creatinine 0.83 Glucose Level 439 *H Calcium Level 8.2 L Total Bilirubin 0.0 L Direct Bilirubin 0.00 Indirect Bilirubin 0.0 Aspartate Amino Transf (AST/SGOT) 74 H Alanine Aminotransferase (ALT/SGPT) 68 Alkaline Phosphatase 196 H Total Protein 5.5 #L Albumin 3.1 #L Globulin 2.40 Albumin/Globulin Ratio 1.29 HIV (1&2) Antibody NEGATIVE Test 03/02/17 05:20 03/02/17 05:31 03/02/17 06:42 03/02/17 07:00 Creatine Kinase 204 H Creatine Kinase Index 2.2 Creatinine Kinase MB (Mass) 4.55 H Troponin I 0.424 *H Bedside Glucose 440 *H 243 H Blood Gas Specimen Source Blood arterial Arterial Blood Date Drawn 03/02/2017 7:50:56 AM Arterial Blood pH (Temp corrected) 7.392 Arterial Blood pCO2 (Temp correct) 36.7 Arterial Blood pO2 (Temp corrected) 95.7 H Arterial Blood HCO3 21.8 L Arterial Blood Base Excess -2.7 Arterial Blood Oxygen Saturation 97.6 Pablo Test ACCEPTAB Arterial Blood Gas Puncture Site Right Radial Arterial Blood Carboxyhemoglobin 0.1 Arterial Blood Methemoglobin 0.2 Blood Gas A-a O2 Differential 147.3 H Oxyhemoglobin Percent 97.3 Total Hemoglobin 11.7 L Blood Gas Temperature 37.0 Blood Gas Respiration Rate 20.0 Blood Gas Actual Respiration Rate 20 Blood Gas Modality VENT - AC FiO2 40.0 Blood Gas Tidal Volume 500.0 Blood Gas Low PEEP Setting 5.0 Blood Gas Notified Whom JLD Blood Gas Notified Time 03/02/2017 8:17:33 AM Test 03/02/17 07:42 03/02/17 08:49 Bedside Glucose 404 *H 346 H Medications Medications Current Medications Sodium Chloride (NS) 1,000 ml @ 70 mls/hr [id number] IV Last administered on 03/02t 08:53; Admin Dose 70 MLS/HR; Start 03/02/17 at 00:12 Acetaminophen (Tylenol Supp) 650 mg Q4H PRN [place] PAIN LEVEL 1-3 OR FEVER; Start 03/02/17 at 00:30 Pantoprazole 40 mg 40 mg DAILY@06 IV Last administered on 03/02/17 06:41; Admin Dose 40 MG; Start 03/02/17 at 06:00 Piperacillin Sod/ Tazobactam Sod (Zosyn 3.375gm/ 100 ml (Pmx)) 100 ml @ 200 mls /hr Q8 IVPB Last administered on 03/02/17 06:41; Admin Dose 200 MLS/HR; Start 03/02/17 at 00:30 Miscellaneous Information 1 ea NOTE XX ; Start 03/02/17 at 00:30 Glucose (Glutose) 15 gm Q15M PRN PO DECREASED GLUCOSE; Start 03/02/17 at 00:30 Glucose (Glutose) 22.5 gm Q15M PRN PO DECREASED GLUCOSE; Start 03/02/17 at 00: 30 Dextrose (D50w Syringe) 25 ml Q15M PRN IV DECREASED GLUCOSE; Start 03/02/17 at 00:30 Dextrose (D50w Syringe) 50 ml Q15M PRN IV DECREASED GLUCOSE; Start 03/02/17 at 00:30 Glucagon (Glucagen) 1 mg Q15M PRN IM DECREASED GLUCOSE; Start 03/02/17 at 00:30 Glucose 15 gm 15 gm Q15M PRN BUCCAL DECREASED GLUCOSE; Start 03/02/17 at 00:30 Vancomycin HCl 250 ml @ 125 mls/hr Q24H IVPB ; Start 03/02/17 at 17:00 Norepinephrine 16 mg/Dextrose 500 ml @ 1.87 mls/hr TITRATE IV Last administered on 03/02/17 02:23; Admin Dose 9.37 MLS/HR; Start 03/02/17 at 01:00 Diltiazem HCl 125 ml @ 5 mls/hr TITRATE IV Last administered on 03/02/17 03:08 ; Admin Dose 5 MLS/HR; Start 03/02/17 at 03:00 Fluconazole (Diflucan 200 Mg/ NS (Pmx)) 100 ml @ 100 mls/hr Q24H IVPB Last administered on 03/02/17 05:33; Admin Dose 100 MLS/HR; Start 03/02/17 at 04:00 Diagnostic Test (Pha) (Accu-Chek) 1 ea Q1H XX Last administered on 03/02/17 06 :43; Admin Dose 1 EA; Start 03/02/17 at 04:30 Dextrose (D50w Syringe) 25 ml Q15M PRN IV Till BS 80 mg/dL or above x2; Start 03/02/17 at 04:30 Dextrose 50 ml 50 ml Q15M PRN IV Till BS 80 mg/dL or above x2; Start 03/02/17 at 04:30 Propofol (Diprivan) 100 ml @ 2.4 mls/hr Q12H IV ; Start 03/02/17 at 05:30 TYREE MCKOY MD Mar 02, 2017 09:31
--- NOTE | 2017-03-02 09:49 | RADRPT ---
Echocardiogram Report Patient Name: BENJAMÍN GARY Gender: Female Date: 1930 Study Date: 02-Mar-2017 Primary Care Nurse Practitioner: Matt [facility] Location: 102 Ref. Physician: TYREE OCONNOR Quality: Technically Difficult Study Procedures: Transthoracic echocardiogram with complete 2D, M-Mode, and doppler examination. Indications: Resp. Failure/ AFIB. 2D/M Mode Doppler Measurement Value Normal Ranges Measurement Value Normal Ranges LVIDd 2D 2.9 3.5 - 5.6 cm AV Peak Flako 1.6 m/sec LVIDs 2D 2.4 2.1 - 4.1 cm AV Peak PG 10.0 mmHg FS 2D 16.4 % LVOT Peak Flako 1.0 m/sec LVPWd 2D 1.3 0.6 - 1.1 cm LVOT Peak PG 4.0 mmHg IVSd 2D 1.3 0.6 - 1.1 cm MV E Peak Flako 0.9 m/sec IVS/LVPW 2D 1.0 MV A Peak Flako 0.9 m/sec AoR Diam 2D 2.1 2.0 - 3.7 cm MV E/A 1.0 LA/Ao 2D 1 0 - 1 MV Decel Time 243 msec EDV 2D 23.6 cm3 MV E/A 1.0 ESV 2D 13.8 cm3 TR Peak Flako 2.0 m/sec LA Dimen 2D 3.1 2.3 - 4.0 cm TR Peak PG 16.0 mmHg RVSP 26.0 mmHg Findings Left Ventricle: Normal left ventricular systolic function. Normal left ventricular cavity size. Mild concentric left ventricular hypertrophy. Ejection fraction is visually estimated at 55 %. Tissue Doppler/Mitral Doppler indices are consistent with impaired relaxation (Stage I diastolic dysfunction). Right Ventricle: Normal right ventricular size. Normal right ventricular systolic function. Left Atrium: The left atrium is normal in size. Right Atrium: The right atrium is normal in size. Mitral Valve: Mitral valve leaflets appear mildly thickened. Mild mitral annular calcification. Trace mitral regurgitation. Aortic Valve: No significant aortic stenosis or insufficiency. Aortic sclerosis without stenosis. Tricuspid Valve: Normal appearance of the tricuspid valve. Estimated peak PA systolic pressure 26 mmHg. There is mild tricuspid regurgitation. Pericardium: Normal pericardium with no significant pericardial effusion. Aorta: Normal aortic root. IVC: Inferior vena cava without respiratory collapse, however, patient on ventilator. Conclusions 1.Normal left ventricular systolic function. Normal left ventricular cavity size. Mild concentric left ventricular hypertrophy. Ejection fraction is visually estimated at 55 %. Tissue Doppler/Mitral Doppler indices are consistent with impaired relaxation (Stage I diastolic dysfunction). 2.The left atrium is normal in size. 3.Mitral valve leaflets appear mildly thickened. Mild mitral annular calcification. Trace mitral regurgitation. 4.No significant aortic stenosis or insufficiency. Aortic sclerosis without stenosis. 5.Normal appearance of the tricuspid valve. Estimated peak PA systolic pressure 26 mmHg. There is mild tricuspid regurgitation. Electronically Signed By: Tyree Oconnor 02-Mar-2017 09:48:44 -0700 Patient Name: BENJAMÍN GARY Study Date: 02-Mar-2017 [id number]
[2017-03-02] MEDS ORDERED: AMIODARONE 900 MG in DEXTROSE 5% 482 ML IV SCH (10:00)
[2017-03-02] MEDS ORDERED: AMIODARONE 150MG/D5W BOLUS 100 ML IV ONE (10:00)
[2017-03-02] MEDS ORDERED: DIGOXIN 500 MCG INJ IV ONE (10:00)
[2017-03-02] MEDS ORDERED: MAGNESIUM SULFATE 2 GM/50 ML 50 ML IVPB ONE (10:00)
[2017-03-02] MEDS: PROPOFOL 100 ML IV SCH ×3 (10:13→21:16)
[2017-03-02] MEDS: CLOPIDOGREL 75 MG TAB NGT SCH (10:15)
--- NOTE | 2017-03-02 10:42 | PN ---
Date/Time of Note Date/Time of Note DATE: 03/02/17 TIME: 10:22 Assessment/Plan VTE Prophylaxis VTE Prophylaxis Intervention: SCD's Lines/Catheters IV Catheter Type (from Nrs): Central Line Central line still needed: Yes Urinary Cath still in place: Yes Reason Cath still needed: other (indicate) Assessment/Plan Chief Complaint/Hosp Course Assessment and plan 1. acute respiratory failure: /Acute decompensation respiratory failure Likely secondary to underlying respiratory infection Continue mechanical ventilation at this time. pulmonology consulted, vent management as per pulmonology Continue IV antibiotics and breathing treatment 2. Severe sepsis: Likely secondary to respiratory infection. Bronchiolitis versus bronchiectasis Continue IV vancomycin and Zosyn. Vasopressor support as needed. IV fluid hydration with normal saline. 3. Tachycardia: Likely secondary to #2 and #1. Continue Cardizem drip. cardiology consult has been obtained. echocardiogram demonstrated normal ejection fraction. 4. suspected esophagitis: Continue IV fluconazole. We will continue to monitor we will consult GI if necessary 5. diabetes mellitus: Continue insulin sliding scale. 6. History of essential hypertension: At the current time will hold home antihypertensive medication secondary to patient's hypotension. 7. DVT and GI prophylaxis: SCDs, Protonix Further treatment strategy will be implemented as per the clinical course. Problems: Subjective 24 Hr Interval Summary Free Text/Dictation Patient is intubated sedated and on pressors Vent setting 500 with FiO2 40% with PEEP of 5 A. fib rate controlled Sedation via propofol On Cardizem drip Exam/Review of Systems Vital Signs Vitals Vital Signs Date Time Temp Pulse Resp B/P Pulse Ox O2 Delivery O2 Flow Rate FiO2 03/02/17 09:30 84 20 96/48 98 Mechanical Ventilator 03/02/17 08:00 98.7 03/02/17 05:53 40 03/01/17 22:02 3.0 Intake and Output 03/01/17 03/01/17 03/02/17 15:00 23:00 07:00 Intake Total 1289.48 ml Output Total 745 ml Balance 544.48 ml Exam General: The patient is intubated and sedated, not in acute distress. HEENT: Atraumatic, normocephalic. The pupils are equal and symmetric Neck: Supple Chest: Normal Lungs: Clear to auscultation bilaterally Heart: Normal S1-S2, Regular rhythm and rate. Abdomen: Soft , nontender, nondistended , bowel sounds are present. Extremities: Normal to inspection, no edema no cyanosis Neurologic: Sedated Results Result Diagram: 03/02/17 0500 03/02/17 0500 Results 24 hrs Laboratory Tests Test 03/01/17 19:15 03/01/17 19:17 03/01/17 21:13 03/01/17 21:50 White Blood Count 18.0 #H Red Blood Count 4.05 L Hemoglobin 12.4 Hematocrit 39.8 Mean Corpuscular Volume 98.3 Mean Corpuscular Hemoglobin 30.6 Mean Corpuscular Hemoglobin Concent 31.2 L Red Cell Distribution Width 14.2 Platelet Count 279 Mean Platelet Volume 11.2 #H Neutrophils % 84.4 H Lymphocytes % 6.0 L Monocytes % 8.4 Eosinophils % 0.1 Basophils % 0.4 Nucleated Red Blood Cells % 0.0 Neutrophils # 15.1 H Lymphocytes # 1.1 Monocytes # 1.5 H Eosinophils # 0.0 Basophils # 0.1 Nucleated Red Blood Cells # 0.0 Prothrombin Time 13.4 Prothrombin Time Ratio 1.0 INR International Normalized Ratio 1.02 Activated Partial Thromboplast Time 31.4 Sodium Level 136 Potassium Level 4.1 Chloride Level 96 L Carbon Dioxide Level 32 H Anion Gap 12 Blood Urea Nitrogen 32 H Creatinine 1.13 H Glucose Level 315 H Lactic Acid Level 2.5 H 4.2 *H Calcium Level 9.7 Total Bilirubin 0.3 Direct Bilirubin 0.00 Indirect Bilirubin 0.3 Aspartate Amino Transf (AST/SGOT) 23 Alanine Aminotransferase (ALT/SGPT) 25 Alkaline Phosphatase 137 H Troponin I 0.187 *H B-Type Natriuretic Peptide 2260 H Total Protein 8.0 Albumin 4.5 Globulin 3.50 H Albumin/Globulin Ratio 1.28 Blood Gas Specimen Source Blood arterial Arterial Blood Date Drawn 03/01/2017 7:20:43 PM Arterial Blood pH (Temp corrected) 7.339 L Arterial Blood pCO2 (Temp correct) 55.6 H Arterial Blood pO2 (Temp corrected) 64.0 L Arterial Blood HCO3 29.3 H Arterial Blood Base Excess 2.3 Arterial Blood Oxygen Saturation 92.0 L Pablo Test ACCEPTAB Arterial Blood Gas Puncture Site Right Radial Arterial Blood Carboxyhemoglobin 0.5 Arterial Blood Methemoglobin 0.1 Blood Gas A-a O2 Differential 84.6 H Oxyhemoglobin Percent 91.4 L Total Hemoglobin 13.2 Blood Gas Temperature 37.0 Blood Gas Modality NASAL CANNULA FiO2 30.0 Blood Gas Notified Whom MG Blood Gas Notified Time 03/01/2017 7:29:12 PM Urine Color YELLOW Urine Clarity CLOUDY A Urine pH 5.0 Urine Specific [place] 1.019 Urine Ketones NEGATIVE Urine Nitrite NEGATIVE Urine Bilirubin NEGATIVE Urine Urobilinogen NEGATIVE Urine Leukocyte Esterase NEGATIVE Urine Microscopic RBC 1 Urine Microscopic WBC 4 Urine Squamous Epithelial Cells FEW Urine Amorphous Crystals FEW A Urine Bacteria FEW A Urine Mucus FEW A Urine Hemoglobin NEGATIVE Urine Glucose 1+ H Urine Total Protein 2+ H Test 03/01/17 23:10 03/01/17 23:20 03/01/17 23:40 03/02/17 02:00 Lactic Acid Level 6.1 *H Bedside Glucose 444 *H 466 *H Blood Gas Specimen Source Blood arterial Arterial Blood Date Drawn 03/01/2017 11:47:36 PM Arterial Blood pH (Temp corrected) 7.151 *L Arterial Blood pCO2 (Temp correct) 67.0 H Arterial Blood pO2 (Temp corrected) 451.7 H Arterial Blood HCO3 22.9 Arterial Blood Base Excess -6.7 L Arterial Blood Oxygen Saturation 99.4 Pablo Test ACCEPTAB Arterial Blood Gas Puncture Site Right Radial Arterial Blood Carboxyhemoglobin 0.3 Arterial Blood Methemoglobin 0.3 Blood Gas A-a O2 Differential 194.3 H Oxyhemoglobin Percent 98.8 Total Hemoglobin 11.9 L Blood Gas Temperature 37.0 Blood Gas Respiration Rate 16.0 Blood Gas Actual Respiration Rate 16 Blood Gas Modality VENT - AC FiO2 100.0 Blood Gas Tidal Volume 500.0 Blood Gas Inspiratory Pressure 37.0 Blood Gas Critical Value Read Back Zachery SANDRA MD Blood Gas Notified Whom MG Blood Gas Notified Time 03/01/2017 11:52:27 PM Test 03/02/17 02:04 03/02/17 02:17 03/02/17 04:09 03/02/17 05:00 Lactic Acid Level 2.3 H Blood Gas Specimen Source Blood arterial Arterial Blood Date Drawn 03/02/2017 2:25:52 AM Arterial Blood pH (Temp corrected) 7.315 L Arterial Blood pCO2 (Temp correct) 45.6 H Arterial Blood pO2 (Temp corrected) 74.8 L Arterial Blood HCO3 22.7 Arterial Blood Base Excess -3.5 L Arterial Blood Oxygen Saturation 94.9 L Pablo Test N/A Arterial Blood Gas Puncture Site Right Brachial Arterial Blood Carboxyhemoglobin 0.3 Arterial Blood Methemoglobin 0.3 Blood Gas A-a O2 Differential 158.0 H Oxyhemoglobin Percent 94.3 Total Hemoglobin 11.4 L Blood Gas Temperature 37.0 Blood Gas Respiration Rate 20.0 Blood Gas Actual Respiration Rate 20 Blood Gas Modality VENT - AC FiO2 40.0 Blood Gas Tidal Volume 500.0 Blood Gas Low PEEP Setting 0 Blood Gas Notified Whom UP Blood Gas Notified Time 03/02/2017 2:36:28 AM Bedside Glucose 436 *H White Blood Count 23.9 #H Red Blood Count 3.46 L Hemoglobin 10.5 L Hematocrit 34.2 L Mean Corpuscular Volume 98.8 Mean Corpuscular Hemoglobin 30.3 Mean Corpuscular Hemoglobin Concent 30.7 L Red Cell Distribution Width 14.5 Platelet Count 274 Mean Platelet Volume 11.4 H Neutrophils % 92.8 H Lymphocytes % 2.5 L Monocytes % 3.7 Eosinophils % 0.0 Basophils % 0.3 Nucleated Red Blood Cells % 0.0 Neutrophils # 22.2 H Lymphocytes # 0.6 L Monocytes # 0.9 Eosinophils # 0.0 Basophils # 0.1 Nucleated Red Blood Cells # 0.0 Sodium Level 132 L Potassium Level 4.0 Chloride Level 104 Carbon Dioxide Level 25 Anion Gap 7 L Blood Urea Nitrogen 32 H Creatinine 0.83 Glucose Level 439 *H Calcium Level 8.2 L Total Bilirubin 0.0 L Direct Bilirubin 0.00 Indirect Bilirubin 0.0 Aspartate Amino Transf (AST/SGOT) 74 H Alanine Aminotransferase (ALT/SGPT) 68 Alkaline Phosphatase 196 H Total Protein 5.5 #L Albumin 3.1 #L Globulin 2.40 Albumin/Globulin Ratio 1.29 HIV (1&2) Antibody NEGATIVE Test 03/02/17 05:20 03/02/17 05:31 03/02/17 06:42 03/02/17 07:00 Creatine Kinase 204 H Creatine Kinase Index 2.2 Creatinine Kinase MB (Mass) 4.55 H Troponin I 0.424 *H Bedside Glucose 440 *H 243 H Blood Gas Specimen Source Blood arterial Arterial Blood Date Drawn 03/02/2017 7:50:56 AM Arterial Blood pH (Temp corrected) 7.392 Arterial Blood pCO2 (Temp correct) 36.7 Arterial Blood pO2 (Temp corrected) 95.7 H Arterial Blood HCO3 21.8 L Arterial Blood Base Excess -2.7 Arterial Blood Oxygen Saturation 97.6 Pablo Test ACCEPTAB Arterial Blood Gas Puncture Site Right Radial Arterial Blood Carboxyhemoglobin 0.1 Arterial Blood Methemoglobin 0.2 Blood Gas A-a O2 Differential 147.3 H Oxyhemoglobin Percent 97.3 Total Hemoglobin 11.7 L Blood Gas Temperature 37.0 Blood Gas Respiration Rate 20.0 Blood Gas Actual Respiration Rate 20 Blood Gas Modality VENT - AC FiO2 40.0 Blood Gas Tidal Volume 500.0 Blood Gas Low PEEP Setting 5.0 Blood Gas Notified Whom JLD Blood Gas Notified Time 03/02/2017 8:17:33 AM Test 03/02/17 07:42 03/02/17 08:49 03/02/17 09:28 Bedside Glucose 404 *H 346 H 310 H Medications Medications Current Medications Sodium Chloride (NS) 1,000 ml @ 70 mls/hr [id number] IV Last administered on 03/02 08:53; Admin Dose 70 MLS/HR; Start 03/02/17 at 00:12 Acetaminophen (Tylenol Supp) 650 mg Q4H PRN [place] PAIN LEVEL 1-3 OR FEVER; Start 03/02/17 at 00:30 Pantoprazole 40 mg 40 mg DAILY@06 IV Last administered on 03/02/17 06:41; Admin Dose 40 MG; Start 03/02/17 at 06:00 Piperacillin Sod/ Tazobactam Sod (Zosyn 3.375gm/ 100 ml (Pmx)) 100 ml @ 200 mls /hr Q8 IVPB Last administered on 03/02/17 06:41; Admin Dose 200 MLS/HR; Start 03/02/17 at 00:30 Miscellaneous Information 1 ea NOTE XX ; Start 03/02/17 at 00:30 Glucose (Glutose) 15 gm Q15M PRN PO DECREASED GLUCOSE; Start 03/02/17 at 00:30 Glucose (Glutose) 22.5 gm Q15M PRN PO DECREASED GLUCOSE; Start 03/02/17 at 00: 30 Dextrose (D50w Syringe) 25 ml Q15M PRN IV DECREASED GLUCOSE; Start 03/02/17 at 00:30 Dextrose (D50w Syringe) 50 ml Q15M PRN IV DECREASED GLUCOSE; Start 03/02/17 at 00:30 Glucagon (Glucagen) 1 mg Q15M PRN IM DECREASED GLUCOSE; Start 03/02/17 at 00:30 Glucose 15 gm 15 gm Q15M PRN BUCCAL DECREASED GLUCOSE; Start 03/02/17 at 00:30 Vancomycin HCl 250 ml @ 125 mls/hr Q24H IVPB ; Start 03/02/17 at 17:00 Norepinephrine 16 mg/Dextrose 500 ml @ 1.87 mls/hr TITRATE IV Last administered on 03/02/17 02:23; Admin Dose 9.37 MLS/HR; Start 03/02/17 at 01:00 Fluconazole (Diflucan 200 Mg/ NS (Pmx)) 100 ml @ 100 mls/hr Q24H IVPB Last administered on 03/02/17 05:33; Admin Dose 100 MLS/HR; Start 03/02/17 at 04:00 Diagnostic Test (Pha) (Accu-Chek) 1 ea Q1H XX Last administered on 03/02/17 06 :43; Admin Dose 1 EA; Start 03/02/17 at 04:30 Dextrose (D50w Syringe) 25 ml Q15M PRN IV Till BS 80 mg/dL or above x2; Start 03/02/17 at 04:30 Dextrose 50 ml 50 ml Q15M PRN IV Till BS 80 mg/dL or above x2; Start 03/02/17 at 04:30 Propofol (Diprivan) 100 ml @ 2.4 mls/hr Q12H IV Last administered on 10:13; Admin Dose 7.2 MLS/HR; Start 03/02/17 at 05:30 Clopidogrel Bisulfate (plaVIX) 75 mg DAILY NGT Last administered on 03/02/17 10:15; Admin Dose 75 MG; Start 03/02/17 at 10:00 Aspirin 81 mg 81 mg DAILY NGT ; Start 03/03/17 at 09:00 Amiodarone HCl 900 mg/Dextrose 500 ml @ 0 mls/hr Q0M IV ; Start 03/02/17 at 10: 00 Magnesium Sulfate (Magnesium Sulfate 2 Gm/50 ml) 50 ml @ 25 mls/hr ONCE ONCE IVPB Last administered on 03/02/17 10:15; Admin Dose 25 MLS/HR; Start at 10:00; Stop 03/02/17 at 11:59 EVERTON TRACEY MD Mar 02, 2017 10:42
--- NOTE | 2017-03-02 10:52 | CONS ---
Date/Time of Note Date/Time of Note DATE: 03/02/17 TIME: 10:47 Assessment/Plan Assessment/Plan Additional Assessment/Plan Assessment 1. Hypoxemic and hypercapnic respiratory failure likely secondary to community- acquired pneumonia 2. Atrial flutter ablation rapid ventricular rate likely exacerbated by hypoxemia and cardiac ischemia 3. 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 Septic shock secondary to above Plan 1. Continue volume resuscitation 2. Broad-spectrum antibiotic coverage pending cultures 3. Follow serial lactates 4. Continue mechanical ventilation adjust for metabolic acidosis 5. Continue insulin drip for hyperglycemia 6. Vasopressor support Disposition Continue ICU care Family conference regarding past medical history and goals of care Consultation Date/Type/Reason Admit Date/Time Mar 01, 2017 at 20:20 Date of Consultation: Mar 02, 2017 Type of Consultation: Pulmonary Reason for Consultation Respiratory failure Hx of Present Illness 86-year-old lady presents with increasing shortness of breath orthopnea PND of 2 days duration. On admission she was noted to be markedly labored with subsequent obtunded respiratory status requiring emergent intubation and mechanical ventilation. She had central line placed for hypotension and is now been placed on vasopressors. In addition she has atrial fibrillation requiring initiation of Cardizem drip. Patient unable to give me further details currently no family members at bedside. Past Medical History Unknown Past Surgical History Past Surgical Hx: no surgical history Social History Smoking Status: Former smoker Exam/Review of Systems Vital Signs Vitals Vital Signs Date Time Temp Pulse Resp B/P Pulse Ox O2 Delivery O2 Flow Rate FiO2 03/02/17 09:30 84 20 96/48 98 Mechanical Ventilator 03/02/17 08:00 98.7 03/02/17 05:53 40 03/01/17 22:02 3.0 Intake and Output 03/01/17 03/01/17 03/02/17 15:00 23:00 07:00 Intake Total 1289.48 ml Output Total 745 ml Balance 544.48 ml Exam PHYSICAL EXAMINATION GENERAL: Elderly lady intubated on mechanical ventilation appears comfortable at rest on sedation VITAL SIGNS: see below. HEENT: Pupils equal, round, and reactive to light. CARDIAC: S1, S2, 1/6 systolic ejection murmur CHEST: Diminished air entry bilaterally. ABDOMEN: Mildly distended. Bowel sounds present no guarding or rebound EXTREMITIES: No cyanosis, clubbing edema +1 NEUROLOGIC: Generalized weakness Results CT chest demonstrating no evidence of pulmonary embolism but evidence of acute bronchiolitis right middle and right lower lobes. Result Diagram: 03/02/17 0500 03/02/17 0500 Results 24 hrs Laboratory Tests Test 03/01/17 19:15 03/01/17 19:17 03/01/17 21:13 03/01/17 21:50 White Blood Count 18.0 #H Red Blood Count 4.05 L Hemoglobin 12.4 Hematocrit 39.8 Mean Corpuscular Volume 98.3 Mean Corpuscular Hemoglobin 30.6 Mean Corpuscular Hemoglobin Concent 31.2 L Red Cell Distribution Width 14.2 Platelet Count 279 Mean Platelet Volume 11.2 #H Neutrophils % 84.4 H Lymphocytes % 6.0 L Monocytes % 8.4 Eosinophils % 0.1 Basophils % 0.4 Nucleated Red Blood Cells % 0.0 Neutrophils # 15.1 H Lymphocytes # 1.1 Monocytes # 1.5 H Eosinophils # 0.0 Basophils # 0.1 Nucleated Red Blood Cells # 0.0 Prothrombin Time 13.4 Prothrombin Time Ratio 1.0 INR International Normalized Ratio 1.02 Activated Partial Thromboplast Time 31.4 Sodium Level 136 Potassium Level 4.1 Chloride Level 96 L Carbon Dioxide Level 32 H Anion Gap 12 Blood Urea Nitrogen 32 H Creatinine 1.13 H Glucose Level 315 H Lactic Acid Level 2.5 H 4.2 *H Calcium Level 9.7 Total Bilirubin 0.3 Direct Bilirubin 0.00 Indirect Bilirubin 0.3 Aspartate Amino Transf (AST/SGOT) 23 Alanine Aminotransferase (ALT/SGPT) 25 Alkaline Phosphatase 137 H Troponin I 0.187 *H B-Type Natriuretic Peptide 2260 H Total Protein 8.0 Albumin 4.5 Globulin 3.50 H Albumin/Globulin Ratio 1.28 Blood Gas Specimen Source Blood arterial Arterial Blood Date Drawn 03/01/2017 7:20:43 PM Arterial Blood pH (Temp corrected) 7.339 L Arterial Blood pCO2 (Temp correct) 55.6 H Arterial Blood pO2 (Temp corrected) 64.0 L Arterial Blood HCO3 29.3 H Arterial Blood Base Excess 2.3 Arterial Blood Oxygen Saturation 92.0 L Pablo Test ACCEPTAB Arterial Blood Gas Puncture Site Right Radial Arterial Blood Carboxyhemoglobin 0.5 Arterial Blood Methemoglobin 0.1 Blood Gas A-a O2 Differential 84.6 H Oxyhemoglobin Percent 91.4 L Total Hemoglobin 13.2 Blood Gas Temperature 37.0 Blood Gas Modality NASAL CANNULA FiO2 30.0 Blood Gas Notified Whom MG Blood Gas Notified Time 03/01/2017 7:29:12 PM Urine Color YELLOW Urine Clarity CLOUDY A Urine pH 5.0 Urine Specific [place] 1.019 Urine Ketones NEGATIVE Urine Nitrite NEGATIVE Urine Bilirubin NEGATIVE Urine Urobilinogen NEGATIVE Urine Leukocyte Esterase NEGATIVE Urine Microscopic RBC 1 Urine Microscopic WBC 4 Urine Squamous Epithelial Cells FEW Urine Amorphous Crystals FEW A Urine Bacteria FEW A Urine Mucus FEW A Urine Hemoglobin NEGATIVE Urine Glucose 1+ H Urine Total Protein 2+ H Test 03/01/17 23:10 03/01/17 23:20 03/01/17 23:40 03/02/17 02:00 Lactic Acid Level 6.1 *H Bedside Glucose 444 *H 466 *H Blood Gas Specimen Source Blood arterial Arterial Blood Date Drawn 03/01/2017 11:47:36 PM Arterial Blood pH (Temp corrected) 7.151 *L Arterial Blood pCO2 (Temp correct) 67.0 H Arterial Blood pO2 (Temp corrected) 451.7 H Arterial Blood HCO3 22.9 Arterial Blood Base Excess -6.7 L Arterial Blood Oxygen Saturation 99.4 Pablo Test ACCEPTAB Arterial Blood Gas Puncture Site Right Radial Arterial Blood Carboxyhemoglobin 0.3 Arterial Blood Methemoglobin 0.3 Blood Gas A-a O2 Differential 194.3 H Oxyhemoglobin Percent 98.8 Total Hemoglobin 11.9 L Blood Gas Temperature 37.0 Blood Gas Respiration Rate 16.0 Blood Gas Actual Respiration Rate 16 Blood Gas Modality VENT - AC FiO2 100.0 Blood Gas Tidal Volume 500.0 Blood Gas Inspiratory Pressure 37.0 Blood Gas Critical Value Read Back Zachery SANDRA MD Blood Gas Notified Whom MG Blood Gas Notified Time 03/01/2017 11:52:27 PM Test 03/02/17 02:04 03/02/17 02:17 03/02/17 04:09 03/02/17 05:00 Lactic Acid Level 2.3 H Blood Gas Specimen Source Blood arterial Arterial Blood Date Drawn 03/02/2017 2:25:52 AM Arterial Blood pH (Temp corrected) 7.315 L Arterial Blood pCO2 (Temp correct) 45.6 H Arterial Blood pO2 (Temp corrected) 74.8 L Arterial Blood HCO3 22.7 Arterial Blood Base Excess -3.5 L Arterial Blood Oxygen Saturation 94.9 L Pablo Test N/A Arterial Blood Gas Puncture Site Right Brachial Arterial Blood Carboxyhemoglobin 0.3 Arterial Blood Methemoglobin 0.3 Blood Gas A-a O2 Differential 158.0 H Oxyhemoglobin Percent 94.3 Total Hemoglobin 11.4 L Blood Gas Temperature 37.0 Blood Gas Respiration Rate 20.0 Blood Gas Actual Respiration Rate 20 Blood Gas Modality VENT - AC FiO2 40.0 Blood Gas Tidal Volume 500.0 Blood Gas Low PEEP Setting 0 Blood Gas Notified Whom UP Blood Gas Notified Time 03/02/2017 2:36:28 AM Bedside Glucose 436 *H White Blood Count 23.9 #H Red Blood Count 3.46 L Hemoglobin 10.5 L Hematocrit 34.2 L Mean Corpuscular Volume 98.8 Mean Corpuscular Hemoglobin 30.3 Mean Corpuscular Hemoglobin Concent 30.7 L Red Cell Distribution Width 14.5 Platelet Count 274 Mean Platelet Volume 11.4 H Neutrophils % 92.8 H Lymphocytes % 2.5 L Monocytes % 3.7 Eosinophils % 0.0 Basophils % 0.3 Nucleated Red Blood Cells % 0.0 Neutrophils # 22.2 H Lymphocytes # 0.6 L Monocytes # 0.9 Eosinophils # 0.0 Basophils # 0.1 Nucleated Red Blood Cells # 0.0 Sodium Level 132 L Potassium Level 4.0 Chloride Level 104 Carbon Dioxide Level 25 Anion Gap 7 L Blood Urea Nitrogen 32 H Creatinine 0.83 Glucose Level 439 *H Calcium Level 8.2 L Total Bilirubin 0.0 L Direct Bilirubin 0.00 Indirect Bilirubin 0.0 Aspartate Amino Transf (AST/SGOT) 74 H Alanine Aminotransferase (ALT/SGPT) 68 Alkaline Phosphatase 196 H Total Protein 5.5 #L Albumin 3.1 #L Globulin 2.40 Albumin/Globulin Ratio 1.29 HIV (1&2) Antibody NEGATIVE Test 03/02/17 05:20 03/02/17 05:31 03/02/17 06:42 03/02/17 07:00 Creatine Kinase 204 H Creatine Kinase Index 2.2 Creatinine Kinase MB (Mass) 4.55 H Troponin I 0.424 *H Bedside Glucose 440 *H 243 H Blood Gas Specimen Source Blood arterial Arterial Blood Date Drawn 03/02/2017 7:50:56 AM Arterial Blood pH (Temp corrected) 7.392 Arterial Blood pCO2 (Temp correct) 36.7 Arterial Blood pO2 (Temp corrected) 95.7 H Arterial Blood HCO3 21.8 L Arterial Blood Base Excess -2.7 Arterial Blood Oxygen Saturation 97.6 Pablo Test ACCEPTAB Arterial Blood Gas Puncture Site Right Radial Arterial Blood Carboxyhemoglobin 0.1 Arterial Blood Methemoglobin 0.2 Blood Gas A-a O2 Differential 147.3 H Oxyhemoglobin Percent 97.3 Total Hemoglobin 11.7 L Blood Gas Temperature 37.0 Blood Gas Respiration Rate 20.0 Blood Gas Actual Respiration Rate 20 Blood Gas Modality VENT - AC FiO2 40.0 Blood Gas Tidal Volume 500.0 Blood Gas Low PEEP Setting 5.0 Blood Gas Notified Whom JLD Blood Gas Notified Time 03/02/2017 8:17:33 AM Test 03/02/17 07:42 03/02/17 08:49 03/02/17 09:28 03/02/17 10:32 Bedside Glucose 404 *H 346 H 310 H 253 H Medications Medications Current Medications Sodium Chloride (NS) 1,000 ml @ 70 mls/hr [id number] IV Last administered on 03/02 08:53; Admin Dose 70 MLS/HR; Start 03/02/17 at 00:12 Acetaminophen (Tylenol Supp) 650 mg Q4H PRN [place] PAIN LEVEL 1-3 OR FEVER; Start 03/02/17 at 00:30 Pantoprazole 40 mg 40 mg DAILY@06 IV Last administered on 03/02/17 06:41; Admin Dose 40 MG; Start 03/02/17 at 06:00 Piperacillin Sod/ Tazobactam Sod (Zosyn 3.375gm/ 100 ml (Pmx)) 100 ml @ 200 mls /hr Q8 IVPB Last administered on 03/02/17 06:41; Admin Dose 200 MLS/HR; Start 03/02/17 at 00:30 Miscellaneous Information 1 ea NOTE XX ; Start 03/02/17 at 00:30 Glucose (Glutose) 15 gm Q15M PRN PO DECREASED GLUCOSE; Start 03/02/17 at 00:30 Glucose (Glutose) 22.5 gm Q15M PRN PO DECREASED GLUCOSE; Start 03/02/17 at 00: 30 Dextrose (D50w Syringe) 25 ml Q15M PRN IV DECREASED GLUCOSE; Start 03/02/17 at 00:30 Dextrose (D50w Syringe) 50 ml Q15M PRN IV DECREASED GLUCOSE; Start 03/02/17 at 00:30 Glucagon (Glucagen) 1 mg Q15M PRN IM DECREASED GLUCOSE; Start 03/02/17 at 00:30 Glucose 15 gm 15 gm Q15M PRN BUCCAL DECREASED GLUCOSE; Start 03/02/17 at 00:30 Vancomycin HCl 250 ml @ 125 mls/hr Q24H IVPB ; Start 03/02/17 at 17:00 Norepinephrine 16 mg/Dextrose 500 ml @ 1.87 mls/hr TITRATE IV Last administered on 03/02/17 02:23; Admin Dose 9.37 MLS/HR; Start 03/02/17 at 01:00 Fluconazole (Diflucan 200 Mg/ NS (Pmx)) 100 ml @ 100 mls/hr Q24H IVPB Last administered on 03/02/17 05:33; Admin Dose 100 MLS/HR; Start 03/02/17 at 04:00 Diagnostic Test (Pha) (Accu-Chek) 1 ea Q1H XX Last administered on 03/02/17 06 :43; Admin Dose 1 EA; Start 03/02/17 at 04:30 Dextrose (D50w Syringe) 25 ml Q15M PRN IV Till BS 80 mg/dL or above x2; Start 03/02/17 at 04:30 Dextrose 50 ml 50 ml Q15M PRN IV Till BS 80 mg/dL or above x2; Start 03/02/17 at 04:30 Propofol (Diprivan) 100 ml @ 2.4 mls/hr Q12H IV Last administered on 10:13; Admin Dose 7.2 MLS/HR; Start 03/02/17 at 05:30 Clopidogrel Bisulfate (plaVIX) 75 mg DAILY NGT Last administered on 03/02/17 10:15; Admin Dose 75 MG; Start 03/02/17 at 10:00 Aspirin 81 mg 81 mg DAILY NGT ; Start 03/03/17 at 09:00 Amiodarone HCl 900 mg/Dextrose 500 ml @ 0 mls/hr Q0M IV Last administered on 10:36; Admin Dose 0.5 MLS/HR; Start 03/02/17 at 10:00 Magnesium Sulfate (Magnesium Sulfate 2 Gm/50 ml) 50 ml @ 25 mls/hr ONCE ONCE IVPB Last administered on 03/02/17 10:15; Admin Dose 25 MLS/HR; Start at 10:00; Stop 03/02/17 at 11:59 MARY ALY MD, [facility] Mar 02, 2017 10:52
[2017-03-02 13:16] LABS: CK-MB 3.32 ng/ml (0.0-2.4)
[2017-03-02 13:32] LABS: TROPONIN-I 0.985 ng/ml (0.00-0.12)
--- NOTE | 2017-03-02 15:52 | CONS ---
Date/Time of Note Date/Time of Note DATE: 03/02/17 TIME: 15:50 Consultation Date/Type/Reason Admit Date/Time Mar 01, 2017 at 20:20 Type of Consultation: ID Past Surgical History Past Surgical Hx: no surgical history Social History Smoking Status: Former smoker Exam/Review of Systems Vital Signs Vitals Vital Signs Date Time Temp Pulse Resp B/P Pulse Ox O2 Delivery O2 Flow Rate FiO2 03/02/17 15:00 70 20 91/54 95 Mechanical Ventilator 03/02/17 12:00 40 03/02/17 12:00 98.7 03/01/17 22:02 3.0 Intake and Output 03/01/17 03/01/17 03/02/17 15:00 23:00 07:00 Intake Total 1289.48 ml Output Total 745 ml Balance 544.48 ml Results Result Diagram: 03/02/17 0500 03/02/17 0500 Results 24 hrs Laboratory Tests Test 03/01/17 19:15 03/01/17 19:17 03/01/17 21:13 03/01/17 21:50 White Blood Count 18.0 #H Red Blood Count 4.05 L Hemoglobin 12.4 Hematocrit 39.8 Mean Corpuscular Volume 98.3 Mean Corpuscular Hemoglobin 30.6 Mean Corpuscular Hemoglobin Concent 31.2 L Red Cell Distribution Width 14.2 Platelet Count 279 Mean Platelet Volume 11.2 #H Neutrophils % 84.4 H Lymphocytes % 6.0 L Monocytes % 8.4 Eosinophils % 0.1 Basophils % 0.4 Nucleated Red Blood Cells % 0.0 Neutrophils # 15.1 H Lymphocytes # 1.1 Monocytes # 1.5 H Eosinophils # 0.0 Basophils # 0.1 Nucleated Red Blood Cells # 0.0 Prothrombin Time 13.4 Prothrombin Time Ratio 1.0 INR International Normalized Ratio 1.02 Activated Partial Thromboplast Time 31.4 Sodium Level 136 Potassium Level 4.1 Chloride Level 96 L Carbon Dioxide Level 32 H Anion Gap 12 Blood Urea Nitrogen 32 H Creatinine 1.13 H Glucose Level 315 H Lactic Acid Level 2.5 H 4.2 *H Calcium Level 9.7 Total Bilirubin 0.3 Direct Bilirubin 0.00 Indirect Bilirubin 0.3 Aspartate Amino Transf (AST/SGOT) 23 Alanine Aminotransferase (ALT/SGPT) 25 Alkaline Phosphatase 137 H Troponin I 0.187 *H B-Type Natriuretic Peptide 2260 H Total Protein 8.0 Albumin 4.5 Globulin 3.50 H Albumin/Globulin Ratio 1.28 Blood Gas Specimen Source Blood arterial Arterial Blood Date Drawn 03/01/2017 7:20:43 PM Arterial Blood pH (Temp corrected) 7.339 L Arterial Blood pCO2 (Temp correct) 55.6 H Arterial Blood pO2 (Temp corrected) 64.0 L Arterial Blood HCO3 29.3 H Arterial Blood Base Excess 2.3 Arterial Blood Oxygen Saturation 92.0 L Pablo Test ACCEPTAB Arterial Blood Gas Puncture Site Right Radial Arterial Blood Carboxyhemoglobin 0.5 Arterial Blood Methemoglobin 0.1 Blood Gas A-a O2 Differential 84.6 H Oxyhemoglobin Percent 91.4 L Total Hemoglobin 13.2 Blood Gas Temperature 37.0 Blood Gas Modality NASAL CANNULA FiO2 30.0 Blood Gas Notified Whom MG Blood Gas Notified Time 03/01/2017 7:29:12 PM Urine Color YELLOW Urine Clarity CLOUDY A Urine pH 5.0 Urine Specific [place] 1.019 Urine Ketones NEGATIVE Urine Nitrite NEGATIVE Urine Bilirubin NEGATIVE Urine Urobilinogen NEGATIVE Urine Leukocyte Esterase NEGATIVE Urine Microscopic RBC 1 Urine Microscopic WBC 4 Urine Squamous Epithelial Cells FEW Urine Amorphous Crystals FEW A Urine Bacteria FEW A Urine Mucus FEW A Urine Hemoglobin NEGATIVE Urine Glucose 1+ H Urine Total Protein 2+ H Test 03/01/17 23:10 03/01/17 23:20 03/01/17 23:40 03/02/17 02:00 Lactic Acid Level 6.1 *H Bedside Glucose 444 *H 466 *H Blood Gas Specimen Source Blood arterial Arterial Blood Date Drawn 03/01/2017 11:47:36 PM Arterial Blood pH (Temp corrected) 7.151 *L Arterial Blood pCO2 (Temp correct) 67.0 H Arterial Blood pO2 (Temp corrected) 451.7 H Arterial Blood HCO3 22.9 Arterial Blood Base Excess -6.7 L Arterial Blood Oxygen Saturation 99.4 Pablo Test ACCEPTAB Arterial Blood Gas Puncture Site Right Radial Arterial Blood Carboxyhemoglobin 0.3 Arterial Blood Methemoglobin 0.3 Blood Gas A-a O2 Differential 194.3 H Oxyhemoglobin Percent 98.8 Total Hemoglobin 11.9 L Blood Gas Temperature 37.0 Blood Gas Respiration Rate 16.0 Blood Gas Actual Respiration Rate 16 Blood Gas Modality VENT - AC FiO2 100.0 Blood Gas Tidal Volume 500.0 Blood Gas Inspiratory Pressure 37.0 Blood Gas Critical Value Read Back Zachery SANDRA MD Blood Gas Notified Whom MG Blood Gas Notified Time 03/01/2017 11:52:27 PM Test 03/02/17 02:04 03/02/17 02:17 03/02/17 04:09 03/02/17 05:00 Lactic Acid Level 2.3 H Blood Gas Specimen Source Blood arterial Arterial Blood Date Drawn 03/02/2017 2:25:52 AM Arterial Blood pH (Temp corrected) 7.315 L Arterial Blood pCO2 (Temp correct) 45.6 H Arterial Blood pO2 (Temp corrected) 74.8 L Arterial Blood HCO3 22.7 Arterial Blood Base Excess -3.5 L Arterial Blood Oxygen Saturation 94.9 L Pablo Test N/A Arterial Blood Gas Puncture Site Right Brachial Arterial Blood Carboxyhemoglobin 0.3 Arterial Blood Methemoglobin 0.3 Blood Gas A-a O2 Differential 158.0 H Oxyhemoglobin Percent 94.3 Total Hemoglobin 11.4 L Blood Gas Temperature 37.0 Blood Gas Respiration Rate 20.0 Blood Gas Actual Respiration Rate 20 Blood Gas Modality VENT - AC FiO2 40.0 Blood Gas Tidal Volume 500.0 Blood Gas Low PEEP Setting 0 Blood Gas Notified Whom UP Blood Gas Notified Time 03/02/2017 2:36:28 AM Bedside Glucose 436 *H White Blood Count 23.9 #H Red Blood Count 3.46 L Hemoglobin 10.5 L Hematocrit 34.2 L Mean Corpuscular Volume 98.8 Mean Corpuscular Hemoglobin 30.3 Mean Corpuscular Hemoglobin Concent 30.7 L Red Cell Distribution Width 14.5 Platelet Count 274 Mean Platelet Volume 11.4 H Neutrophils % 92.8 H Lymphocytes % 2.5 L Monocytes % 3.7 Eosinophils % 0.0 Basophils % 0.3 Nucleated Red Blood Cells % 0.0 Neutrophils # 22.2 H Lymphocytes # 0.6 L Monocytes # 0.9 Eosinophils # 0.0 Basophils # 0.1 Nucleated Red Blood Cells # 0.0 Sodium Level 132 L Potassium Level 4.0 Chloride Level 104 Carbon Dioxide Level 25 Anion Gap 7 L Blood Urea Nitrogen 32 H Creatinine 0.83 Glucose Level 439 *H Calcium Level 8.2 L Total Bilirubin 0.0 L Direct Bilirubin 0.00 Indirect Bilirubin 0.0 Aspartate Amino Transf (AST/SGOT) 74 H Alanine Aminotransferase (ALT/SGPT) 68 Alkaline Phosphatase 196 H Total Protein 5.5 #L Albumin 3.1 #L Globulin 2.40 Albumin/Globulin Ratio 1.29 HIV (1&2) Antibody NEGATIVE Test 03/02/17 05:20 03/02/17 05:31 03/02/17 06:42 03/02/17 07:00 Creatine Kinase 204 H Creatine Kinase Index 2.2 Creatinine Kinase MB (Mass) 4.55 H Troponin I 0.424 *H Bedside Glucose 440 *H 243 H Blood Gas Specimen Source Blood arterial Arterial Blood Date Drawn 03/02/2017 7:50:56 AM Arterial Blood pH (Temp corrected) 7.392 Arterial Blood pCO2 (Temp correct) 36.7 Arterial Blood pO2 (Temp corrected) 95.7 H Arterial Blood HCO3 21.8 L Arterial Blood Base Excess -2.7 Arterial Blood Oxygen Saturation 97.6 Pablo Test ACCEPTAB Arterial Blood Gas Puncture Site Right Radial Arterial Blood Carboxyhemoglobin 0.1 Arterial Blood Methemoglobin 0.2 Blood Gas A-a O2 Differential 147.3 H Oxyhemoglobin Percent 97.3 Total Hemoglobin 11.7 L Blood Gas Temperature 37.0 Blood Gas Respiration Rate 20.0 Blood Gas Actual Respiration Rate 20 Blood Gas Modality VENT - AC FiO2 40.0 Blood Gas Tidal Volume 500.0 Blood Gas Low PEEP Setting 5.0 Blood Gas Notified Whom JLD Blood Gas Notified Time 03/02/2017 8:17:33 AM Test 03/02/17 07:42 03/02/17 08:49 03/02/17 09:28 03/02/17 10:32 Bedside Glucose 404 *H 346 H 310 H 253 H Test 03/02/17 11:38 03/02/17 12:27 03/02/17 12:32 03/02/17 13:37 Bedside Glucose 186 188 150 Creatine Kinase 157 Creatine Kinase Index 2.1 Creatinine Kinase MB (Mass) 3.32 H Troponin I 0.985 *H Test 03/02/17 14:32 Bedside Glucose 132 Medications Medications Current Medications Sodium Chloride (NS) 1,000 ml @ 70 mls/hr [id number] IV Last administered on 03/02t 08:53; Admin Dose 70 MLS/HR; Start 03/02/17 at 00:12 Acetaminophen (Tylenol Supp) 650 mg Q4H PRN [place] PAIN LEVEL 1-3 OR FEVER; Start 03/02/17 at 00:30 Pantoprazole 40 mg 40 mg DAILY@06 IV Last administered on 03/02/17 06:41; Admin Dose 40 MG; Start 03/02/17 at 06:00 Piperacillin Sod/ Tazobactam Sod (Zosyn 3.375gm/ 100 ml (Pmx)) 100 ml @ 200 mls /hr Q8 IVPB Last administered on 03/02/17 14:22; Admin Dose 200 MLS/HR; Start 03/02/17 at 00:30 Miscellaneous Information 1 ea NOTE XX ; Start 03/02/17 at 00:30 Glucose (Glutose) 15 gm Q15M PRN PO DECREASED GLUCOSE; Start 03/02/17 at 00:30 Glucose (Glutose) 22.5 gm Q15M PRN PO DECREASED GLUCOSE; Start 03/02/17 at 00: 30 Dextrose (D50w Syringe) 25 ml Q15M PRN IV DECREASED GLUCOSE; Start 03/02/17 at 00:30 Dextrose (D50w Syringe) 50 ml Q15M PRN IV DECREASED GLUCOSE; Start 03/02/17 at 00:30 Glucagon (Glucagen) 1 mg Q15M PRN IM DECREASED GLUCOSE; Start 03/02/17 at 00:30 Glucose 15 gm 15 gm Q15M PRN BUCCAL DECREASED GLUCOSE; Start 03/02/17 at 00:30 Vancomycin HCl 250 ml @ 125 mls/hr Q24H IVPB ; Start 03/02/17 at 17:00 Norepinephrine 16 mg/Dextrose 500 ml @ 1.87 mls/hr TITRATE IV Last administered on 03/02/17 02:23; Admin Dose 9.37 MLS/HR; Start 03/02/17 at 01:00 Fluconazole (Diflucan 200 Mg/ NS (Pmx)) 100 ml @ 100 mls/hr Q24H IVPB Last administered on 03/02/17 05:33; Admin Dose 100 MLS/HR; Start 03/02/17 at 04:00 Diagnostic Test (Pha) (Accu-Chek) 1 ea Q1H XX Last administered on 03/02/17 06 :43; Admin Dose 1 EA; Start 03/02/17 at 04:30 Dextrose (D50w Syringe) 25 ml Q15M PRN IV Till BS 80 mg/dL or above x2; Start 7/12/17 at 04:30 Dextrose 50 ml 50 ml Q15M PRN IV Till BS 80 mg/dL or above x2; Start 03/02/17 at 04:30 Propofol (Diprivan) 100 ml @ 2.4 mls/hr Q12H IV Last administered on 10:13; Admin Dose 7.2 MLS/HR; Start 03/02/17 at 05:30 Clopidogrel Bisulfate (plaVIX) 75 mg DAILY NGT Last administered on 03/02/17 10:15; Admin Dose 75 MG; Start 03/02/17 at 10:00 Aspirin 81 mg 81 mg DAILY NGT ; Start 03/03/17 at 09:00 Amiodarone HCl/ Dextrose (Cordarone Iv/ D5W) 500 ml @ 0 mls/hr Q0M IV Last administered on 03/02/17 10:36; Admin Dose 0.5 MLS/HR; Start 03/02/17 at 10:00 CARLY EVANS MD Mar 02, 2017 15:51
[2017-03-02] MEDS: VANCOMYCIN 1 GM in NS 250 ML IVPB SCH (16:36)
[2017-03-03] VITALS (84 sets, daily range): BP systolic 90–143; BP diastolic 43–70; PULSE 50–150; RESP 10–21
[2017-03-03] MEDS: ACCU-CHEK XX SCH ×21 (00:32→20:51)
[2017-03-03] MEDS: INSULIN HUMAN REGULAR 100 UNIT in SOD CHLORIDE 0.9% 99 ML IV SCH (00:52)
[2017-03-03] MEDS: FLUCONAZOLE 200 MG/NS (PMX) 100 ML IVPB SCH (03:49)
[2017-03-03] MEDS: PROPOFOL 100 ML IV SCH ×3 (04:39→15:30)
[2017-03-03] MEDS: PIPER-TAZO 3.375 GM IV (PMX) 100 ML IVPB SCH ×3 (05:39→22:12)
[2017-03-03] MEDS: PANTOPRAZOLE 40 MG INJ IV SCH (05:40)
[2017-03-03 06:34] LABS: ADD SCAN DIFF NO
[2017-03-03 06:46] LABS: ABNORMAL IP MESSAGE 1; BASOPHIL # 0.1 10^3/ul (0.0-0.1); BASOPHILS % 0.2 % (0.0-2.0); HEMATOCRIT 31.7 % (37.0-47.0); HEMOGLOBIN 10.2 g/dl (12.0-16.0); LYMPHOCYTES # 1.3 10^3/ul (0.8-2.9); LYMPHOCYTES % 4.3 % (15.0-51.0); MEAN CORPUSCULAR HEMOGLOBIN 31.5 pg (29.0-33.0); MEAN CORPUSCULAR HGB CONC 32.2 g/dl (32.0-37.0); MEAN CORPUSCULAR VOLUME 97.8 fl (82.0-101.0); MEAN PLATELET VOLUME 11.9 fl (7.4-10.4); MONOCYTE # 1.6 10^3/ul (0.3-0.9); MONOCYTES % 5.5 % (0.0-11.0); NEUTROPHIL # 25.4 10^3/ul (1.6-7.5); NEUTROPHILS % 88.4 % (39.0-77.0); NUCLEATED RED BLOOD CELLS% 0.1 /100WBC (0.0-0.0); PLATELET COUNT 291 10^3/UL (140-415); RED BLOOD COUNT 3.24 10^6/ul (4.20-5.40); RED CELL DISTRIBUTION WIDTH 14.6 % (11.5-14.5); WHITE BLOOD COUNT 28.8 10^3/ul (4.8-10.8)
[2017-03-03 07:11] LABS: ALBUMIN/GLOBULIN RATIO 1.2; BILIRUBIN,INDIRECT 0.1 mg/dl (0-1.1); BILIRUBIN,TOTAL 0.1 mg/dl (0.2-1.3); CHOL/HDL RATIO 3.9 RATIO; CREATININE 0.77 mg/dl (0.44-1.00); MAGNESIUM 2.6 mg/dl (1.7-2.5); POTASSIUM 3.8 mmol/L (3.5-5.1); TOTAL PROTEIN 5.5 g/dl (6.1-8.1)
[2017-03-03 07:14] LABS: CK-MB 1.05 ng/ml (0.0-2.4)
--- NOTE | 2017-03-03 07:15 | PN ---
Date/Time of Note Date/Time of Note DATE: 03/03/17 TIME: 07:09 Assessment/Plan VTE Prophylaxis VTE Prophylaxis Intervention: other Lines/Catheters IV Catheter Type (from Nrs): Central Line Central line still needed: Yes Urinary Cath still in place: Yes Reason Cath still needed: other (indicate) Assessment/Plan Chief Complaint/Hosp Course 1. P afib with RVR 2. acute hypoxemic respiratory failure: intubated now 3. + troponin: c.w NSTEMI due to demand ischemia due to above 4. DM and severely elevated glucose: controlled with insulin drip now 5. dyslipidemia 6. pneumonia/ sepsis 7. shock : appear to be related to sepsis: currently still on levophed 8. hx memory impairment ASA daily plavix off of cardizem drip s/p onde dose of dig on 03/02/17 completed amiodarone drip. will start po amiodarone DM Control with insulin drip for now. will start betablocker once BP is more stable and off of levophed echo shows normal EF replace lytes including K and Mg prn check CVP and adjust fluid accordingly. . cont ICU care more than 38 minutes of critical care time was spent in management and treatment of this critically ill pt, excluding any procedures . Problems: Subjective 24 Hr Interval Summary Free Text/Dictation CARDIOLOGY FOLLOW UP NOTE/ critical care note d/w staff in ICU and rhythm was reviewed. pt remains in NSR/ SINUS Bhaskar and frequent PVC/ PAC. but no more Afib noted. pt is nonverbal on vent She is still on levophed drip, insulin drip. amidarone drip was stopped this am due to bradycardia OBJECTIVE: General: intubated on vent. HEENT: NC/AT. pupils are constricted. round. NECK: NO JVD. no stridor. CV: RRR. systolic murmur; no gallop or rubs. PULM: no wheezing or rhonchi. GI: SOFT, NT, ND, no rebound or guarding Extremity: trace B/L LE edema. no clubbing. neuro: sedated . Psych: calm and pleasant rectal: deferred : normal ECHO personally reviewed: 1. Normal left ventricular systolic function. Normal left ventricular cavity size. Mild concentric left ventricular hypertrophy. Ejection fraction is visually estimated at 55 %. Tissue Doppler/Mitral Doppler indices are consistent with impaired relaxation (Stage I diastolic dysfunction). 2. The left atrium is normal in size. 3. Mitral valve leaflets appear mildly thickened. Mild mitral annular calcification. Trace mitral regurgitation. 4. No significant aortic stenosis or insufficiency. Aortic sclerosis without stenosis. 5. Normal appearance of the tricuspid valve. Estimated peak PA systolic pressure 26 mmHg. There is mild tricuspid regurgitation. Exam/Review of Systems Vital Signs Vitals Vital Signs Date Time Temp Pulse Resp B/P Pulse Ox O2 Delivery O2 Flow Rate FiO2 03/03/17 06:00 54 20 117/52 98 Mechanical Ventilator 03/03/17 04:55 30 03/03/17 04:00 98.0 03/01/17 22:02 3.0 Intake and Output 03/02/17 03/02/17 03/03/17 14:59 22:59 06:59 Intake Total 1164.27 ml 1155.93 ml 1010.60 ml Output Total 430 ml 305 ml 330 ml Balance 734.27 ml 850.93 ml 680.60 ml Results Result Diagram: 03/03/17 0515 03/02/17 0500 Results 24 hrs Laboratory Tests Test 03/02/17 07:42 03/02/17 08:49 03/02/17 09:28 03/02/17 10:32 Bedside Glucose 404 *H 346 H 310 H 253 H Test 03/02/17 11:38 03/02/17 12:27 03/02/17 12:32 03/02/17 13:37 Bedside Glucose 186 188 150 Creatine Kinase 157 Creatine Kinase Index 2.1 Creatinine Kinase MB (Mass) 3.32 H Troponin I 0.985 *H Test 03/02/17 14:32 03/02/17 15:47 03/02/17 16:40 03/02/17 17:43 Bedside Glucose 132 138 115 116 Test 03/02/17 18:38 03/02/17 19:45 03/02/17 20:34 03/02/17 21:45 Bedside Glucose 125 109 126 120 Test 03/02/17 22:34 03/02/17 23:37 03/03/17 00:31 03/03/17 01:21 Bedside Glucose 114 105 115 Lactic Acid Level 1.1 Test 03/03/17 01:27 03/03/17 02:39 03/03/17 03:46 03/03/17 04:38 Bedside Glucose 115 116 111 107 Test 03/03/17 05:15 03/03/17 05:38 03/03/17 06:36 White Blood Count 28.8 #H Red Blood Count 3.24 L Hemoglobin 10.2 L Hematocrit 31.7 L Mean Corpuscular Volume 97.8 Mean Corpuscular Hemoglobin 31.5 Mean Corpuscular Hemoglobin Concent 32.2 Red Cell Distribution Width 14.6 H Platelet Count 291 Mean Platelet Volume 11.9 H Neutrophils % 88.4 H Lymphocytes % 4.3 L Monocytes % 5.5 Eosinophils % 0.0 Basophils % 0.2 Nucleated Red Blood Cells % 0.1 H Neutrophils # 25.4 H Lymphocytes # 1.3 Monocytes # 1.6 H Eosinophils # 0.0 Basophils # 0.1 Nucleated Red Blood Cells # 0.0 Creatine Kinase 91 Creatine Kinase Index Pending Creatinine Kinase MB (Mass) Pending Troponin I Pending Bedside Glucose 122 105 Medications Medications Current Medications Sodium Chloride (NS) 1,000 ml @ 70 mls/hr [id number] IV Last administered on 03/02 21:16; Admin Dose 70 MLS/HR; Start 03/02/17 at 00:12 Acetaminophen (Tylenol Supp) 650 mg Q4H PRN [place] PAIN LEVEL 1-3 OR FEVER; Start 03/02/17 at 00:30 Pantoprazole 40 mg 40 mg DAILY@06 IV Last administered on 03/03/17 05:40; Admin Dose 40 MG; Start 03/02/17 at 06:00 Piperacillin Sod/ Tazobactam Sod (Zosyn 3.375gm/ 100 ml (Pmx)) 100 ml @ 200 mls /hr Q8 IVPB Last administered on 03/03/17 05:39; Admin Dose 200 MLS/HR; Start 03/02/17 at 00:30 Miscellaneous Information 1 ea NOTE XX ; Start 03/02/17 at 00:30 Glucose (Glutose) 15 gm Q15M PRN PO DECREASED GLUCOSE; Start 03/02/17 at 00:30 Glucose (Glutose) 22.5 gm Q15M PRN PO DECREASED GLUCOSE; Start 03/02/17 at 00: 30 Dextrose (D50w Syringe) 25 ml Q15M PRN IV DECREASED GLUCOSE; Start 03/02/17 at 00:30 Dextrose (D50w Syringe) 50 ml Q15M PRN IV DECREASED GLUCOSE; Start 03/02/17 at 00:30 Glucagon (Glucagen) 1 mg Q15M PRN IM DECREASED GLUCOSE; Start 03/02/17 at 00:30 Glucose 15 gm 15 gm Q15M PRN BUCCAL DECREASED GLUCOSE; Start 03/02/17 at 00:30 Vancomycin HCl 250 ml @ 125 mls/hr Q24H IVPB Last administered on 03/02/17 16 :36; Admin Dose 125 MLS/HR; Start 03/02/17 at 17:00 Norepinephrine 16 mg/Dextrose 500 ml @ 1.87 mls/hr TITRATE IV Last administered on 03/02/17 02:23; Admin Dose 9.37 MLS/HR; Start 03/02/17 at 01:00 Fluconazole (Diflucan 200 Mg/ NS (Pmx)) 100 ml @ 100 mls/hr Q24H IVPB Last administered on 03/03/17 03:49; Admin Dose 100 MLS/HR; Start 03/02/17 at 04:00 Diagnostic Test (Pha) (Accu-Chek) 1 ea Q1H XX Last administered on 03/03/17 06 :39; Admin Dose 1 EA; Start 03/02/17 at 04:30 Dextrose (D50w Syringe) 25 ml Q15M PRN IV Till BS 80 mg/dL or above x2; Start 03/02/17 at 04:30 Dextrose 50 ml 50 ml Q15M PRN IV Till BS 80 mg/dL or above x2; Start 03/02/17 at 04:30 Propofol (Diprivan) 100 ml @ 2.4 mls/hr Q12H IV Last administered on 04:39; Admin Dose 14.4 MLS/HR; Start 03/02/17 at 05:30 Clopidogrel Bisulfate (plaVIX) 75 mg DAILY NGT Last administered on 03/02/17 10:15; Admin Dose 75 MG; Start 03/02/17 at 10:00 Aspirin 81 mg 81 mg DAILY NGT ; Start 03/03/17 at 09:00 Amiodarone HCl/ Dextrose (Cordarone Iv/ D5W) 500 ml @ 0 mls/hr Q0M IV Last administered on 03/02/17 10:36; Admin Dose 0.5 MLS/HR; Start 03/02/17 at 10:00 TYREE MCKOY MD Mar 03, 2017 07:15
[2017-03-03 07:16] LABS: TROPONIN-I 0.424 ng/ml (0.00-0.12)
[2017-03-03 07:34] LABS: THYROID STIMULATING HORMONE 0.319 MIU/L (0.465-4.680)
[2017-03-03 08:14] LABS: AADO2 Arterial 101.5 mmHg (7.0-24.0); Arterial Base Excess 0.1 mmol/L (-3.0-3); Arterial COHb 0.3 % (0.0-3.0); Arterial Fraction of Oxyhgb 95.3 % (93.0-99.0); Arterial HCO3 22.9 mmol/L (22.0-26.0); Arterial MetHb 0.1 % (0.0-1.5); Arterial Total Hemglobin 10.5 g/dl (12.0-18.0); MODE VENT - AC
[2017-03-03] MEDS ORDERED: ASPIRIN 81 MG TAB NGT SCH (09:00)
[2017-03-03] MEDS: CLOPIDOGREL 75 MG TAB NGT SCH (09:22)
--- NOTE | 2017-03-03 09:42 | PN ---
Date/Time of Note Date/Time of Note DATE: 03/03/17 TIME: 09:38 Assessment/Plan VTE Prophylaxis VTE Prophylaxis Intervention: SCD's Lines/Catheters IV Catheter Type (from [facility]): Central Line Central line still needed: Yes Urinary Cath still in place: Yes Reason Cath still needed: other (indicate) Assessment/Plan Chief Complaint/Hosp Course Assessment and plan 1. acute respiratory failure: /Acute decompensation respiratory failure Likely secondary to underlying respiratory infection Continue mechanical ventilation at this time. pulmonology consulted, vent management as per pulmonology Continue IV antibiotics and breathing treatment 2. Severe sepsis: Likely secondary to respiratory infection. Bronchiolitis versus bronchiectasis Continue IV vancomycin and Zosyn. Vasopressor support as needed. IV fluid hydration with normal saline. Infectious disease doctor has been consulted 3. Tachycardia: Likely secondary to #2 and #1. Status post Cardizem drip. cardiology consult has been obtained. echocardiogram demonstrated normal ejection fraction. On amiodarone drip, rate control at this time 4. suspected esophagitis: Continue IV fluconazole. Consult swift tender 5. diabetes mellitus: Continue insulin sliding scale. 6. History of essential hypertension: At the current time will hold home antihypertensive medication secondary to patient's hypotension. 7. Questionable GI bleed: Hold Plavix at this time if okay by director of online education, follow hemoglobin hematocrit, obtain GI consultation 7. DVT and GI prophylaxis: SCDs, Protonix Further treatment strategy will be implemented as per the clinical course. Prognosis: Guarded Problems: Subjective 24 Hr Interval Summary Free Text/Dictation Patient remains intubated and sedated Off pressors since yesterday evening Has been started on amiodarone drip NG tube positive coffee-ground output Exam/Review of Systems Vital Signs Vitals Vital Signs Date Time Temp Pulse Resp B/P Pulse Ox O2 Delivery O2 Flow Rate FiO2 03/03/17 08:00 63 03/03/17 06:00 20 117/52 98 Mechanical Ventilator 03/03/17 04:55 30 03/03/17 04:00 98.0 03/01/17 22:02 3.0 Intake and Output 03/02/17 03/02/17 03/03/17 15:00 23:00 07:00 Intake Total 1040.01 ml 1159.48 ml 908.19 ml Output Total 390 ml 295 ml 300 ml Balance 650.01 ml 864.48 ml 608.19 ml Exam General: The patient is intubated and sedated HEENT: Atraumatic, normocephalic. The pupils are equal . Chest: Normal Lungs: Decreased breath sounds bilateral lower lung field Heart: Normal S1-S2, irregular rhythm regular rate Abdomen: Soft , nontender, nondistended , bowel sounds are present. Extremities: Normal to inspection, +1 edema no cyanosis Neurologic: Sedated, minimal respond to pain stimuli Results Result Diagram: 03/03/1715 03/03/17 0515 Results 24 hrs Laboratory Tests Test 03/02/17 10:32 03/02/17 11:38 03/02/17 12:27 03/02/17 12:32 Bedside Glucose 253 H 186 188 Creatine Kinase 157 Creatine Kinase Index 2.1 Creatinine Kinase MB (Mass) 3.32 H Troponin I 0.985 *H Test 03/02/17 13:37 03/02/17 14:32 03/02/17 15:47 03/02/17 16:40 Bedside Glucose 150 132 138 115 Test 03/02/17 17:43 03/02/17 18:38 03/02/17 19:45 03/02/17 20:34 Bedside Glucose 116 125 109 126 Test 03/02/17 21:45 03/02/17 22:34 03/02/17 23:37 03/03/17 00:31 Bedside Glucose 120 114 105 115 Test 03/03/17 01:21 03/03/17 01:27 03/03/17 02:39 03/03/17 03:46 Lactic Acid Level 1.1 Bedside Glucose 115 116 111 Test 03/03/17 04:38 03/03/17 05:15 03/03/17 05:38 03/03/17 06:36 Bedside Glucose 107 122 105 White Blood Count 28.8 #H Red Blood Count 3.24 L Hemoglobin 10.2 L Hematocrit 31.7 L Mean Corpuscular Volume 97.8 Mean Corpuscular Hemoglobin 31.5 Mean Corpuscular Hemoglobin Concent 32.2 Red Cell Distribution Width 14.6 H Platelet Count 291 Mean Platelet Volume 11.9 H Neutrophils % 88.4 H Lymphocytes % 4.3 L Monocytes % 5.5 Eosinophils % 0.0 Basophils % 0.2 Nucleated Red Blood Cells % 0.1 H Neutrophils # 25.4 H Lymphocytes # 1.3 Monocytes # 1.6 H Eosinophils # 0.0 Basophils # 0.1 Nucleated Red Blood Cells # 0.0 Sodium Level 136 Potassium Level 3.8 Chloride Level 108 Carbon Dioxide Level 25 Anion Gap 7 L Blood Urea Nitrogen 27 H Creatinine 0.77 Glucose Level 86 # Calcium Level 8.0 L Magnesium Level 2.6 H Total Bilirubin 0.1 L Direct Bilirubin 0.00 Indirect Bilirubin 0.1 Aspartate Amino Transf (AST/SGOT) 39 Alanine Aminotransferase (ALT/SGPT) 45 Alkaline Phosphatase 168 H Creatine Kinase 91 Creatine Kinase Index 1.2 Creatinine Kinase MB (Mass) 1.05 Troponin I 0.424 *H B-Type Natriuretic Peptide 715 H Total Protein 5.5 L Albumin 3.0 L Globulin 2.50 Albumin/Globulin Ratio 1.20 Triglycerides Level 176 H Cholesterol Level 115 LDL Cholesterol, Calculated 51 HDL Cholesterol 29 L Cholesterol/HDL Ratio 3.9 Thyroid Stimulating Hormone (TSH) 0.319 L Free Thyroxine 2.23 H Test 03/03/17 07:00 03/03/17 09:07 Blood Gas Specimen Source Blood arterial Arterial Blood Date Drawn 03/03/2017 7:40:32 AM Arterial Blood pH (Temp corrected) 7.488 H Arterial Blood pCO2 (Temp correct) 30.9 L Arterial Blood pO2 (Temp corrected) 76.1 L Arterial Blood HCO3 22.9 Arterial Blood Base Excess 0.1 Arterial Blood Oxygen Saturation 95.7 Pablo Test N/A Arterial Blood Gas Puncture Site Right Brachial Arterial Blood Carboxyhemoglobin 0.3 Arterial Blood Methemoglobin 0.1 Blood Gas A-a O2 Differential 101.5 H Oxyhemoglobin Percent 95.3 Total Hemoglobin 10.5 L Blood Gas Temperature 37.0 Blood Gas Respiration Rate 20.0 Blood Gas Actual Respiration Rate 20 Blood Gas Modality VENT - AC FiO2 30.0 Blood Gas Tidal Volume 500.0 Blood Gas Low PEEP Setting 5.0 Blood Gas Notified Whom JLD Blood Gas Notified Time 03/03/2017 8:14:13 AM Bedside Glucose 115 Medications Medications Current Medications Sodium Chloride (NS) 1,000 ml @ 70 mls/hr [id number] IV Last administered on 03/02t 21:16; Admin Dose 70 MLS/HR; Start 03/02/17 at 00:12 Acetaminophen (Tylenol Supp) 650 mg Q4H PRN [place] PAIN LEVEL 1-3 OR FEVER; Start 03/02/17 at 00:30 Pantoprazole 40 mg 40 mg DAILY@06 IV Last administered on 03/03/17 05:40; Admin Dose 40 MG; Start 03/02/17 at 06:00 Piperacillin Sod/ Tazobactam Sod (Zosyn 3.375gm/ 100 ml (Pmx)) 100 ml @ 200 mls /hr Q8 IVPB Last administered on 03/03/17 05:39; Admin Dose 200 MLS/HR; Start 03/02/17 at 00:30 Miscellaneous Information 1 ea NOTE XX ; Start 03/02/17 at 00:30 Glucose (Glutose) 15 gm Q15M PRN PO DECREASED GLUCOSE; Start 03/02/17 at 00:30 Glucose (Glutose) 22.5 gm Q15M PRN PO DECREASED GLUCOSE; Start 03/02/17 at 00: 30 Dextrose (D50w Syringe) 25 ml Q15M PRN IV DECREASED GLUCOSE; Start 03/02/17 at 00:30 Dextrose (D50w Syringe) 50 ml Q15M PRN IV DECREASED GLUCOSE; Start 03/02/17 at 00:30 Glucagon (Glucagen) 1 mg Q15M PRN IM DECREASED GLUCOSE; Start 03/02/17 at 00:30 Glucose 15 gm 15 gm Q15M PRN BUCCAL DECREASED GLUCOSE; Start 03/02/17 at 00:30 Vancomycin HCl 250 ml @ 125 mls/hr Q24H IVPB Last administered on 03/02/17 16 :36; Admin Dose 125 MLS/HR; Start 03/02/17 at 17:00 Norepinephrine 16 mg/Dextrose 500 ml @ 1.87 mls/hr TITRATE IV Last administered on 03/02/17 02:23; Admin Dose 9.37 MLS/HR; Start 03/02/17 at 01:00 Fluconazole (Diflucan 200 Mg/ NS (Pmx)) 100 ml @ 100 mls/hr Q24H IVPB Last administered on 03/03/17 03:49; Admin Dose 100 MLS/HR; Start 03/02/17 at 04:00 Diagnostic Test (Pha) (Accu-Chek) 1 ea Q1H XX Last administered on 03/03/17 08 :30; Admin Dose 1 EA; Start 03/02/17 at 04:30 Dextrose (D50w Syringe) 25 ml Q15M PRN IV Till BS 80 mg/dL or above x2; Start 03/02/17 at 04:30 Dextrose 50 ml 50 ml Q15M PRN IV Till BS 80 mg/dL or above x2; Start 03/02/17 at 04:30 Propofol (Diprivan) 100 ml @ 2.4 mls/hr Q12H IV Last administered on 04:39; Admin Dose 14.4 MLS/HR; Start 03/02/17 at 05:30 Clopidogrel Bisulfate (plaVIX) 75 mg DAILY NGT Last administered on 03/03/17 09:22; Admin Dose 75 MG; Start 03/02/17 at 10:00 Aspirin 81 mg 81 mg DAILY NGT Last administered on 03/03/17 09:22; Admin Dose 81 MG; Start 03/03/17 at 09:00 Amiodarone HCl/ Dextrose (Cordarone Iv/ D5W) 500 ml @ 0 mls/hr Q0M IV Last administered on 03/02/17 10:36; Admin Dose 0.5 MLS/HR; Start 03/02/17 at 10:00 EVERTON TRACEY MD Mar 03, 2017 09:42
--- NOTE | 2017-03-03 10:07 | RADRPT ---
PROCEDURE: XR Chest 1 View. CLINICAL INDICATION: Shortness of breath. TECHNIQUE: AP view of the chest was obtained. COMPARISON: Yesterday. FINDINGS: The heart size is within normal limits. Calcified atherosclerosis is noted in the aorta. Endotrache al tube is stable and appears in grossly appropriate location. Nasogastric tube has its distal end in the expected location of the stomach. Left-sided central line is unchanged. Central pulmonary v ascular congestion and interstitial prominence in both lungs is stable. Atelectasis versus minimal infiltrates in the left lower lobe are stable. Osseous structures are unchanged. IMPRESSION: Calcified atherosclerosis in the aorta. Nasogastric tube with its distal end in the expected location of the stomach. Stable central pulmonary vascular congestion and interstitial prominence in both lungs. Stable atelectasis versus minimal infiltrates in the left lower lobe. RPTAT: AA .Porfirio Jensen MD, MD Date Time Electronically viewed and signed by .Porfirio Jensen MD, MD on 03/03/2017 10:07 .P/
--- NOTE | 2017-03-03 10:49 | CONS ---
Date/Time of Note Date/Time of Note DATE: 03/03/17 TIME: 10:47 Consult Date/Type/Reason Admit Date/Time Mar 01, 2017 at 20:20 Initial Consult Date 03/02/17 Type of Consultation: Pulmonary ICU Subjective Patient intubated sedated this morning opens eyes and follows commands off sedation. Questionable coffee-ground output from nasogastric tube. Objective Vital Signs Date Time Temp Pulse Resp B/P Pulse Ox O2 Delivery O2 Flow Rate FiO2 03/03/17 09:45 53 20 105/59 97 Mechanical Ventilator 03/03/17 08:00 30 03/03/17 07:15 98.8 03/01/17 22:02 3.0 Intake and Output 03/02/17 03/02/17 03/03/17 15:00 23:00 07:00 Intake Total 1040.01 ml 1159.48 ml 995.46 ml Output Total 390 ml 295 ml 300 ml Balance 650.01 ml 864.48 ml 695.46 ml Exam PHYSICAL EXAMINATION GENERAL: Elderly lady intubated on mechanical ventilation appears comfortable at rest VITAL SIGNS: see below. HEENT: Pupils equal, round, and reactive to light. CARDIAC: S1, S2, 1/6 systolic ejection murmur CHEST: Diminished air entry bilaterally. ABDOMEN: Mildly distended. Bowel sounds present no guarding or rebound EXTREMITIES: No cyanosis, clubbing edema +1 NEUROLOGIC: Generalized weakness Results/Medications Result Diagram: 03/03/17 0515 03/03/17 0515 Results 24 hrs Laboratory Tests Test 03/02/17 11:38 03/02/17 12:27 03/02/17 12:32 03/02/17 13:37 Bedside Glucose 186 188 150 Creatine Kinase 157 Creatine Kinase Index 2.1 Creatinine Kinase MB (Mass) 3.32 H Troponin I 0.985 *H Test 03/02/17 14:32 03/02/17 15:47 03/02/17 16:40 03/02/17 17:43 Bedside Glucose 132 138 115 116 Test 03/02/17 18:38 03/02/17 19:45 03/02/17 20:34 03/02/17 21:45 Bedside Glucose 125 109 126 120 Test 03/02/17 22:34 03/02/17 23:37 03/03/17 00:31 03/03/17 01:21 Bedside Glucose 114 105 115 Lactic Acid Level 1.1 Test 03/03/17 01:27 03/03/17 02:39 03/03/17 03:46 03/03/17 04:38 Bedside Glucose 115 116 111 107 Test 03/03/17 05:15 03/03/17 05:38 03/03/17 06:36 03/03/17 07:00 White Blood Count 28.8 #H Red Blood Count 3.24 L Hemoglobin 10.2 L Hematocrit 31.7 L Mean Corpuscular Volume 97.8 Mean Corpuscular Hemoglobin 31.5 Mean Corpuscular Hemoglobin Concent 32.2 Red Cell Distribution Width 14.6 H Platelet Count 291 Mean Platelet Volume 11.9 H Neutrophils % 88.4 H Lymphocytes % 4.3 L Monocytes % 5.5 Eosinophils % 0.0 Basophils % 0.2 Nucleated Red Blood Cells % 0.1 H Neutrophils # 25.4 H Lymphocytes # 1.3 Monocytes # 1.6 H Eosinophils # 0.0 Basophils # 0.1 Nucleated Red Blood Cells # 0.0 Sodium Level 136 Potassium Level 3.8 Chloride Level 108 Carbon Dioxide Level 25 Anion Gap 7 L Blood Urea Nitrogen 27 H Creatinine 0.77 Glucose Level 86 # Calcium Level 8.0 L Magnesium Level 2.6 H Total Bilirubin 0.1 L Direct Bilirubin 0.00 Indirect Bilirubin 0.1 Aspartate Amino Transf (AST/SGOT) 39 Alanine Aminotransferase (ALT/SGPT) 45 Alkaline Phosphatase 168 H Creatine Kinase 91 Creatine Kinase Index 1.2 Creatinine Kinase MB (Mass) 1.05 Troponin I 0.424 *H B-Type Natriuretic Peptide 715 H Total Protein 5.5 L Albumin 3.0 L Globulin 2.50 Albumin/Globulin Ratio 1.20 Triglycerides Level 176 H Cholesterol Level 115 LDL Cholesterol, Calculated 51 HDL Cholesterol 29 L Cholesterol/HDL Ratio 3.9 Thyroid Stimulating Hormone (TSH) 0.319 L Free Thyroxine 2.23 H Bedside Glucose 122 105 Blood Gas Specimen Source Blood arterial Arterial Blood Date Drawn 03/03/2017 7:40:32 AM Arterial Blood pH (Temp corrected) 7.488 H Arterial Blood pCO2 (Temp correct) 30.9 L Arterial Blood pO2 (Temp corrected) 76.1 L Arterial Blood HCO3 22.9 Arterial Blood Base Excess 0.1 Arterial Blood Oxygen Saturation 95.7 Pablo Test N/A Arterial Blood Gas Puncture Site Right Brachial Arterial Blood Carboxyhemoglobin 0.3 Arterial Blood Methemoglobin 0.1 Blood Gas A-a O2 Differential 101.5 H Oxyhemoglobin Percent 95.3 Total Hemoglobin 10.5 L Blood Gas Temperature 37.0 Blood Gas Respiration Rate 20.0 Blood Gas Actual Respiration Rate 20 Blood Gas Modality VENT - AC FiO2 30.0 Blood Gas Tidal Volume 500.0 Blood Gas Low PEEP Setting 5.0 Blood Gas Notified Whom JLD Blood Gas Notified Time 03/03/2017 8:14:13 AM Test 03/03/17 09:07 Bedside Glucose 115 Medications Current Medications Sodium Chloride (NS) 1,000 ml @ 70 mls/hr [id number] IV Last administered on 03/02 21:16; Admin Dose 70 MLS/HR; Start 03/02/17 at 00:12 Acetaminophen (Tylenol Supp) 650 mg Q4H PRN [place] PAIN LEVEL 1-3 OR FEVER; Start 03/02/17 at 00:30 Pantoprazole 40 mg 40 mg DAILY@06 IV Last administered on 03/03/17 05:40; Admin Dose 40 MG; Start 03/02/17 at 06:00 Piperacillin Sod/ Tazobactam Sod (Zosyn 3.375gm/ 100 ml (Pmx)) 100 ml @ 200 mls /hr Q8 IVPB Last administered on 03/03/17 05:39; Admin Dose 200 MLS/HR; Start 03/02/17 at 00:30 Miscellaneous Information 1 ea NOTE XX ; Start 03/02/17 at 00:30 Glucose (Glutose) 15 gm Q15M PRN PO DECREASED GLUCOSE; Start 03/02/17 at 00:30 Glucose (Glutose) 22.5 gm Q15M PRN PO DECREASED GLUCOSE; Start 03/02/17 at 00: 30 Dextrose (D50w Syringe) 25 ml Q15M PRN IV DECREASED GLUCOSE; Start 03/02/17 at 00:30 Dextrose (D50w Syringe) 50 ml Q15M PRN IV DECREASED GLUCOSE; Start 03/02/17 at 00:30 Glucagon (Glucagen) 1 mg Q15M PRN IM DECREASED GLUCOSE; Start 03/02/17 at 00:30 Glucose 15 gm 15 gm Q15M PRN BUCCAL DECREASED GLUCOSE; Start 03/02/17 at 00:30 Vancomycin HCl 250 ml @ 125 mls/hr Q24H IVPB Last administered on 03/02/17 16 :36; Admin Dose 125 MLS/HR; Start 03/02/17 at 17:00 Norepinephrine 16 mg/Dextrose 500 ml @ 1.87 mls/hr TITRATE IV Last administered on 03/02/17 02:23; Admin Dose 9.37 MLS/HR; Start 03/02/17 at 01:00 Fluconazole (Diflucan 200 Mg/ NS (Pmx)) 100 ml @ 100 mls/hr Q24H IVPB Last administered on 03/03/17 03:49; Admin Dose 100 MLS/HR; Start 03/02/17 at 04:00 Diagnostic Test (Pha) (Accu-Chek) 1 ea Q1H XX Last administered on 03/03/17 08 :30; Admin Dose 1 EA; Start 03/02/17 at 04:30 Dextrose (D50w Syringe) 25 ml Q15M PRN IV Till BS 80 mg/dL or above x2; Start 03/02/17 at 04:30 Dextrose 50 ml 50 ml Q15M PRN IV Till BS 80 mg/dL or above x2; Start 03/02/17 at 04:30 Propofol (Diprivan) 100 ml @ 2.4 mls/hr Q12H IV Last administered on 04:39; Admin Dose 14.4 MLS/HR; Start 03/02/17 at 05:30 Clopidogrel Bisulfate (plaVIX) 75 mg DAILY NGT Last administered on 03/03/17 09:22; Admin Dose 75 MG; Start 03/02/17 at 10:00 Aspirin 81 mg 81 mg DAILY NGT Last administered on 03/03/17 09:22; Admin Dose 81 MG; Start 03/03/17 at 09:00 Amiodarone HCl/ Dextrose (Cordarone Iv/ D5W) 500 ml @ 0 mls/hr Q0M IV Last administered on 03/02/17 10:36; Admin Dose 0.5 MLS/HR; Start 03/02/17 at 10:00 Assessment/Plan Chief Complaint/Hosp Course 86-year-old lady presents with increasing shortness of breath orthopnea PND of 2 days duration. On admission she was noted to be markedly labored with subsequent obtunded respiratory status requiring emergent intubation and mechanical ventilation. She had central line placed for hypotension and is now been placed on vasopressors. In addition she has atrial fibrillation requiring initiation of Cardizem drip. Patient unable to give me further details currently no family members at bedside. Problems: Additional Assessment/Plan Assessment 1. Hypoxemic and hypercapnic respiratory failure likely secondary to community- acquired pneumonia 2. Atrial fibrillation with rapid ventricular rate likely exacerbated by hypoxemia and cardiac ischemia 3. 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 Septic shock secondary to above Plan 1. Decrease IV fluids 2. Broad-spectrum antibiotic coverage pending cultures 3. Follow serial lactates 4. CPAP weaning trial 5. Continue insulin drip for hyperglycemia 6. Vasopressor support as needed Disposition Continue ICU care critical care time 40 minutes discussed with primary team and nursing staff MARY ALY MD, [facility] Mar 03, 2017 10:49
[2017-03-03] MEDS: SOD CHLORIDE 0.9% 1,000 ML IV SCH (10:55)
--- NOTE | 2017-03-03 11:46 | CONS ---
Date/Time of Note Date/Time of Note DATE: 03/03/17 TIME: 11:45 Assessment/Plan Assessment/Plan Chief Complaint/Hosp Course No acute events overnight per report. Patient remains comfortable on vent. No fevers Temperature 98.8 pulse 63 respirations 20 blood pressure 115/52 saturation 100 on vent WBC 28.8 H&H 10.2 and 31.7 platelets 291 neutrophils 88.4 BUN 27 creatinine 0.77 Indwelling's endotracheal tube, Pierce catheter NG tube Antibiotics vancomycin, Zosyn Chest x-ray this morning revealed stable central pulmonary vascular congestion stable atelectasis versus minimal infiltrates in the left lower lobe Physical examination: Chronically ill-appearing elderly woman who is intubated in no distress. Head atraumatic normocephalic sclera nonicteric bugle mucosa dry. Neck is supple, trachea midline. Chest rise symmetrical breath sounds diminished basis. S1-S2. Abdomen soft bowel tones hypoactive. Extremities with trace edema. Assessment: 1. Sepsis with shock and persistent leukocytosis 2. Community-acquired pneumonia 3. Acute respiratory failure, intubated 4. Diabetes 5. Non-ST elevation NV Plan: Hemodynamically stable, off pressors since this morning, continue on current antibiotics, send sputum cultures, continue vent management per pulmonary, follow cardiology recommendations Discussed with RN Problems: Consultation Date/Type/Reason Admit Date/Time Mar 01, 2017 at 20:20 Initial Consult Date 03/02/17 Type of Consultation: ID Exam/Review of Systems Vital Signs Vitals Vital Signs Date Time Temp Pulse Resp B/P Pulse Ox O2 Delivery O2 Flow Rate FiO2 03/03/17 09:45 53 20 105/59 97 Mechanical Ventilator 03/03/17 08:00 30 03/03/17 07:15 98.8 03/01/17 22:02 3.0 Intake and Output 03/02/17 03/02/17 03/03/17 15:00 23:00 07:00 Intake Total 1040.01 ml 1159.48 ml 995.46 ml Output Total 390 ml 295 ml 300 ml Balance 650.01 ml 864.48 ml 695.46 ml Results Result Diagram: 03/03/17 0515 03/03/17 0515 Results 24 hrs Laboratory Tests Test 03/02/17 12:27 03/02/17 12:32 03/02/17 13:37 03/02/17 14:32 Creatine Kinase 157 Creatine Kinase Index 2.1 Creatinine Kinase MB (Mass) 3.32 H Troponin I 0.985 *H Bedside Glucose 188 150 132 Test 03/02/17 15:47 03/02/17 16:40 03/02/17 17:43 03/02/17 18:38 Bedside Glucose 138 115 116 125 Test 03/02/17 19:45 03/02/17 20:34 03/02/17 21:45 03/02/17 22:34 Bedside Glucose 109 126 120 114 Test 03/02/17 23:37 03/03/17 00:31 03/03/17 01:21 03/03/17 01:27 Bedside Glucose 105 115 115 Lactic Acid Level 1.1 Test 03/03/17 02:39 03/03/17 03:46 03/03/17 04:38 03/03/17 05:15 Bedside Glucose 116 111 107 White Blood Count 28.8 #H Red Blood Count 3.24 L Hemoglobin 10.2 L Hematocrit 31.7 L Mean Corpuscular Volume 97.8 Mean Corpuscular Hemoglobin 31.5 Mean Corpuscular Hemoglobin Concent 32.2 Red Cell Distribution Width 14.6 H Platelet Count 291 Mean Platelet Volume 11.9 H Neutrophils % 88.4 H Lymphocytes % 4.3 L Monocytes % 5.5 Eosinophils % 0.0 Basophils % 0.2 Nucleated Red Blood Cells % 0.1 H Neutrophils # 25.4 H Lymphocytes # 1.3 Monocytes # 1.6 H Eosinophils # 0.0 Basophils # 0.1 Nucleated Red Blood Cells # 0.0 Sodium Level 136 Potassium Level 3.8 Chloride Level 108 Carbon Dioxide Level 25 Anion Gap 7 L Blood Urea Nitrogen 27 H Creatinine 0.77 Glucose Level 86 # Calcium Level 8.0 L Magnesium Level 2.6 H Total Bilirubin 0.1 L Direct Bilirubin 0.00 Indirect Bilirubin 0.1 Aspartate Amino Transf (AST/SGOT) 39 Alanine Aminotransferase (ALT/SGPT) 45 Alkaline Phosphatase 168 H Creatine Kinase 91 Creatine Kinase Index 1.2 Creatinine Kinase MB (Mass) 1.05 Troponin I 0.424 *H B-Type Natriuretic Peptide 715 H Total Protein 5.5 L Albumin 3.0 L Globulin 2.50 Albumin/Globulin Ratio 1.20 Triglycerides Level 176 H Cholesterol Level 115 LDL Cholesterol, Calculated 51 HDL Cholesterol 29 L Cholesterol/HDL Ratio 3.9 Thyroid Stimulating Hormone (TSH) 0.319 L Free Thyroxine 2.23 H Test 03/03/17 05:38 03/03/17 06:36 03/03/17 07:00 03/03/17 09:07 Bedside Glucose 122 105 115 Blood Gas Specimen Source Blood arterial Arterial Blood Date Drawn 03/03/2017 7:40:32 AM Arterial Blood pH (Temp corrected) 7.488 H Arterial Blood pCO2 (Temp correct) 30.9 L Arterial Blood pO2 (Temp corrected) 76.1 L Arterial Blood HCO3 22.9 Arterial Blood Base Excess 0.1 Arterial Blood Oxygen Saturation 95.7 Pablo Test N/A Arterial Blood Gas Puncture Site Right Brachial Arterial Blood Carboxyhemoglobin 0.3 Arterial Blood Methemoglobin 0.1 Blood Gas A-a O2 Differential 101.5 H Oxyhemoglobin Percent 95.3 Total Hemoglobin 10.5 L Blood Gas Temperature 37.0 Blood Gas Respiration Rate 20.0 Blood Gas Actual Respiration Rate 20 Blood Gas Modality VENT - AC FiO2 30.0 Blood Gas Tidal Volume 500.0 Blood Gas Low PEEP Setting 5.0 Blood Gas Notified Whom JLD Blood Gas Notified Time 03/03/2017 8:14:13 AM Test 03/03/17 10:57 Bedside Glucose 95 Medications Medications Current Medications Sodium Chloride (NS) 1,000 ml @ 70 mls/hr [id number] IV Last administered on 03/03 10:55; Admin Dose 70 MLS/HR; Start 03/02/17 at 00:12 Acetaminophen (Tylenol Supp) 650 mg Q4H PRN [place] PAIN LEVEL 1-3 OR FEVER; Start 03/02/17 at 00:30 Pantoprazole 40 mg 40 mg DAILY@06 IV Last administered on 03/03/17 05:40; Admin Dose 40 MG; Start 03/02/17 at 06:00 Piperacillin Sod/ Tazobactam Sod (Zosyn 3.375gm/ 100 ml (Pmx)) 100 ml @ 200 mls /hr Q8 IVPB Last administered on 03/03/17 05:39; Admin Dose 200 MLS/HR; Start 03/02/17 at 00:30 Miscellaneous Information 1 ea NOTE XX ; Start 03/02/17 at 00:30 Glucose (Glutose) 15 gm Q15M PRN PO DECREASED GLUCOSE; Start 03/02/17 at 00:30 Glucose (Glutose) 22.5 gm Q15M PRN PO DECREASED GLUCOSE; Start 03/02/17 at 00: 30 Dextrose (D50w Syringe) 25 ml Q15M PRN IV DECREASED GLUCOSE; Start 03/02/17 at 00:30 Dextrose (D50w Syringe) 50 ml Q15M PRN IV DECREASED GLUCOSE; Start 03/02/17 at 00:30 Glucagon (Glucagen) 1 mg Q15M PRN IM DECREASED GLUCOSE; Start 03/02/17 at 00:30 Glucose 15 gm 15 gm Q15M PRN BUCCAL DECREASED GLUCOSE; Start 03/02/17 at 00:30 Vancomycin HCl 250 ml @ 125 mls/hr Q24H IVPB Last administered on 03/02/17 16 :36; Admin Dose 125 MLS/HR; Start 03/02/17 at 17:00 Norepinephrine 16 mg/Dextrose 500 ml @ 1.87 mls/hr TITRATE IV Last administered on 03/02/17 02:23; Admin Dose 9.37 MLS/HR; Start 03/02/17 at 01:00 Fluconazole (Diflucan 200 Mg/ NS (Pmx)) 100 ml @ 100 mls/hr Q24H IVPB Last administered on 03/03/17 03:49; Admin Dose 100 MLS/HR; Start 03/02/17 at 04:00 Diagnostic Test (Pha) (Accu-Chek) 1 ea Q1H XX Last administered on 03/03/17 10 :57; Admin Dose 1 EA; Start 03/02/17 at 04:30 Dextrose (D50w Syringe) 25 ml Q15M PRN IV Till BS 80 mg/dL or above x2; Start 03/02/17 at 04:30 Dextrose 50 ml 50 ml Q15M PRN IV Till BS 80 mg/dL or above x2; Start 03/02/17 at 04:30 Propofol (Diprivan) 100 ml @ 2.4 mls/hr Q12H IV Last administered on 04:39; Admin Dose 14.4 MLS/HR; Start 03/02/17 at 05:30 Clopidogrel Bisulfate (plaVIX) 75 mg DAILY NGT Last administered on 03/03/17 09:22; Admin Dose 75 MG; Start 03/02/17 at 10:00 Aspirin 81 mg 81 mg DAILY NGT Last administered on 03/03/17 09:22; Admin Dose 81 MG; Start 03/03/17 at 09:00 Amiodarone HCl/ Dextrose (Cordarone Iv/ D5W) 500 ml @ 0 mls/hr Q0M IV Last administered on 03/02/17 10:36; Admin Dose 0.5 MLS/HR; Start 03/02/17 at 10:00 HAO CUTLER NP Mar 03, 2017 11:46
[2017-03-03] MEDS: VANCOMYCIN 1 GM in NS 250 ML IVPB SCH (17:21)
[2017-03-03 18:28] LABS: HEMATOCRIT 30.6 % (37.0-47.0); HEMOGLOBIN 9.6 g/dl (12.0-16.0)
[2017-03-03] MEDS: DEXTROSE 5% 1,000 ML IV SCH (20:58)
[2017-03-03] MEDS: INSULIN ASPART [NOVOLOG] 3 ML PEN SC SCH (22:00)
[2017-03-04] VITALS (58 sets, daily range): BP systolic 73–128; BP diastolic 37–93; PULSE 55–76; RESP 8–22
[2017-03-04] MEDS: INSULIN ASPART [NOVOLOG] 3 ML PEN SC SCH ×6 (01:00→20:58)
[2017-03-04] MEDS: PROPOFOL 100 ML IV SCH ×4 (01:16→20:47)
[2017-03-04 01:59] LABS: CALCIUM 7.7 mg/dl (8.4-10.2); CREATININE 0.8 mg/dl (0.44-1.00); POTASSIUM 3.5 mmol/L (3.5-5.1)
[2017-03-04] MEDS: FLUCONAZOLE 200 MG/NS (PMX) 100 ML IVPB SCH (04:34)
[2017-03-04 05:02] LABS: ADD SCAN DIFF NO
[2017-03-04 05:10] LABS: BASOPHILS % 0.2 % (0.0-2.0); EOSINOPHILS # 0.2 10^3/ul (0.0-0.5); EOSINOPHILS % 0.9 % (0.0-7.0); HEMOGLOBIN 9.1 g/dl (12.0-16.0); LYMPHOCYTES # 2.4 10^3/ul (0.8-2.9); MEAN CORPUSCULAR HGB CONC 30.3 g/dl (32.0-37.0); MEAN PLATELET VOLUME 11.4 fl (7.4-10.4); MONOCYTES % 5.5 % (0.0-11.0); NEUTROPHIL # 14.6 10^3/ul (1.6-7.5); NEUTROPHILS % 78.6 % (39.0-77.0); PLATELET COUNT 243 10^3/UL (140-415); RED BLOOD COUNT 3.03 10^6/ul (4.20-5.40); RED CELL DISTRIBUTION WIDTH 15.1 % (11.5-14.5); WHITE BLOOD COUNT 18.6 10^3/ul (4.8-10.8)
[2017-03-04 05:43] LABS: CALCIUM 7.5 mg/dl (8.4-10.2); CREATININE 0.79 mg/dl (0.44-1.00); POTASSIUM 3.2 mmol/L (3.5-5.1)
[2017-03-04] MEDS: PANTOPRAZOLE 40 MG INJ IV SCH ×2 (05:46→18:25)
[2017-03-04] MEDS: PIPER-TAZO 3.375 GM IV (PMX) 100 ML IVPB SCH ×3 (05:46→21:43)
[2017-03-04] MEDS ORDERED: POTASSIUM CHLORIDE 20 MEQ POWDER FOR ORAL SOLN GTB ONE (07:00)
--- NOTE | 2017-03-04 07:01 | PN ---
Date/Time of Note Date/Time of Note DATE: 03/04/17 TIME: 06:58 Assessment/Plan VTE Prophylaxis VTE Prophylaxis Intervention: SCD's Lines/Catheters IV Catheter Type (from Nrs): Central Line Central line still needed: Yes Urinary Cath still in place: Yes Reason Cath still needed: other (indicate) Assessment/Plan Chief Complaint/Hosp Course 1. P afib with RVR 2. acute hypoxemic respiratory failure: intubated now 3. + troponin: c.w NSTEMI due to demand ischemia due to above 4. DM and severely elevated glucose: controlled with insulin 5. dyslipidemia 6. pneumonia/ sepsis 7. shock : appear to be related to sepsis: currently still on levophed 8. hx memory impairment 9. anemia and GI bleed ASA on hold due to concerns about GI bleed dc plavix due to above off of cardizem drip s/p onde dose of dig on 03/02/17 completed amiodarone drip. will start po amiodarone DM Control with insulin will start betablocker once BP is more stable and off of levophed echo shows normal EF replace lytes including K and Mg prn cont ICU care Problems: Subjective 24 Hr Interval Summary Free Text/Dictation CARDIOLOGY FOLLOW UP NOTE/ critical care note d/w staff in ICU and rhythm was reviewed. pt remains in NSR/ S[facility] Bhaskar and frequent PVC/ PAC. but no more Afib noted. pt is nonverbal on vent She is still off of levophed drip and insulin drip. pt with coffee ground from her NG tube. ASA/ Plavix had to be held OBJECTIVE: CVP around 6-8 General: intubated on vent. HEENT: NC/AT. pupils are constricted. round. NECK: NO JVD. no stridor. CV: RRR. systolic murmur; no gallop or rubs. PULM: no wheezing or rhonchi. GI: SOFT, NT, ND, no rebound or guarding Extremity: trace B/L LE edema. no clubbing. neuro: sedated . Psych: calm and pleasant rectal: deferred : normal ECHO personally reviewed: 1. Normal left ventricular systolic function. Normal left ventricular cavity size. Mild concentric left ventricular hypertrophy. Ejection fraction is visually estimated at 55 %. Tissue Doppler/Mitral Doppler indices are consistent with impaired relaxation (Stage I diastolic dysfunction). 2. The left atrium is normal in size. 3. Mitral valve leaflets appear mildly thickened. Mild mitral annular calcification. Trace mitral regurgitation. 4. No significant aortic stenosis or insufficiency. Aortic sclerosis without stenosis. 5. Normal appearance of the tricuspid valve. Estimated peak PA systolic pressure 26 mmHg. There is mild tricuspid regurgitation. Exam/Review of Systems Vital Signs Vitals Vital Signs Date Time Temp Pulse Resp B/P Pulse Ox O2 Delivery O2 Flow Rate FiO2 03/04/17 06:00 62 20 99/43 98 Mechanical Ventilator 03/04/17 04:47 30 03/04/17 04:00 98.2 03/01/17 22:02 3.0 Intake and Output 03/03/17 03/03/17 03/04/17 15:00 23:00 07:00 Intake Total 631.8 ml 970.0 ml 790.8 ml Output Total 910 ml 300 ml Balance 631.8 ml 60.0 ml 490.8 ml Results Result Diagram: 03/04/17 0445 03/04/17 0445 Results 24 hrs Laboratory Tests Test 03/03/17 07:00 03/03/17 09:07 03/03/17 10:57 03/03/17 12:47 Blood Gas Specimen Source Blood arterial Arterial Blood Date Drawn 03/03/2017 7:40:32 AM Arterial Blood pH (Temp corrected) 7.488 H Arterial Blood pCO2 (Temp correct) 30.9 L Arterial Blood pO2 (Temp corrected) 76.1 L Arterial Blood HCO3 22.9 Arterial Blood Base Excess 0.1 Arterial Blood Oxygen Saturation 95.7 Pablo Test N/A Arterial Blood Gas Puncture Site Right Brachial Arterial Blood Carboxyhemoglobin 0.3 Arterial Blood Methemoglobin 0.1 Blood Gas A-a O2 Differential 101.5 H Oxyhemoglobin Percent 95.3 Total Hemoglobin 10.5 L Blood Gas Temperature 37.0 Blood Gas Respiration Rate 20.0 Blood Gas Actual Respiration Rate 20 Blood Gas Modality VENT - AC FiO2 30.0 Blood Gas Tidal Volume 500.0 Blood Gas Low PEEP Setting 5.0 Blood Gas Notified Whom JLD Blood Gas Notified Time 03/03/2017 8:14:13 AM Bedside Glucose 115 95 109 Test 03/03/17 14:28 03/03/17 15:58 03/03/17 18:01 03/03/17 18:15 Bedside Glucose 97 109 78 Hemoglobin 9.6 L Hematocrit 30.6 L Test 03/03/17 19:19 03/03/17 20:13 03/03/17 22:12 03/04/17 01:15 Bedside Glucose 77 77 84 Sodium Level 135 Potassium Level 3.5 Chloride Level 109 Carbon Dioxide Level 26 Anion Gap 4 L Blood Urea Nitrogen 26 H Creatinine 0.80 Glucose Level 86 Calcium Level 7.7 L Test 03/04/17 01:16 03/04/17 04:45 03/04/17 04:56 Bedside Glucose 91 96 White Blood Count 18.6 #H Red Blood Count 3.03 L Hemoglobin 9.1 L Hematocrit 30.0 L Mean Corpuscular Volume 99.0 Mean Corpuscular Hemoglobin 30.0 Mean Corpuscular Hemoglobin Concent 30.3 L Red Cell Distribution Width 15.1 H Platelet Count 243 Mean Platelet Volume 11.4 H Neutrophils % 78.6 H Lymphocytes % 13.0 L Monocytes % 5.5 Eosinophils % 0.9 Basophils % 0.2 Nucleated Red Blood Cells % 0.0 Neutrophils # 14.6 H Lymphocytes # 2.4 Monocytes # 1.0 H Eosinophils # 0.2 Basophils # 0.0 Nucleated Red Blood Cells # 0.0 Sodium Level 133 L Potassium Level 3.2 L Chloride Level 106 Carbon Dioxide Level 24 Anion Gap 6 L Blood Urea Nitrogen 23 H Creatinine 0.79 Glucose Level 229 #H Calcium Level 7.5 L Medications Medications Current Medications Acetaminophen 650 mg 650 mg Q4H PRN [place] PAIN LEVEL 1-3 OR FEVER; Start 03/02/17 at 00:30 Piperacillin Sod/ Tazobactam Sod (Zosyn 3.375gm/ 100 ml (Pmx)) 100 ml @ 200 mls /hr Q8 IVPB Last administered on 03/04/17t 05:46; Admin Dose 200 MLS/HR; Start 03/02/17 at 00:30 Miscellaneous Information 1 ea NOTE XX ; Start 03/02/17 at 00:30 Glucose (Glutose) 15 gm Q15M PRN PO DECREASED GLUCOSE; Start 03/02/17 at 00:30 Glucose (Glutose) 22.5 gm Q15M PRN PO DECREASED GLUCOSE; Start 03/02/17 at 00: 30 Dextrose (D50w Syringe) 25 ml Q15M PRN IV DECREASED GLUCOSE; Start 03/02/17 at 00:30 Dextrose (D50w Syringe) 50 ml Q15M PRN IV DECREASED GLUCOSE; Start 03/02/17 at 00:30 Glucagon (Glucagen) 1 mg Q15M PRN IM DECREASED GLUCOSE; Start 03/02/17 at 00:30 Glucose 15 gm 15 gm Q15M PRN BUCCAL DECREASED GLUCOSE; Start 03/02/17 at 00:30 Vancomycin HCl 250 ml @ 125 mls/hr Q24H IVPB Last administered on 03/03/17 17 :21; Admin Dose 125 MLS/HR; Start 03/02/17 at 17:00 Norepinephrine 16 mg/Dextrose 500 ml @ 1.87 mls/hr TITRATE IV Last administered on 03/02/17 02:23; Admin Dose 9.37 MLS/HR; Start 03/02/17 at 01:00 Fluconazole (Diflucan 200 Mg/ NS (Pmx)) 100 ml @ 100 mls/hr Q24H IVPB Last administered on 03/04/17 04:34; Admin Dose 100 MLS/HR; Start 03/02/17 at 04:00 Dextrose (D50w Syringe) 25 ml Q15M PRN IV Till BS 80 mg/dL or above x2; Start 03/02/17 at 04:30 Dextrose 50 ml 50 ml Q15M PRN IV Till BS 80 mg/dL or above x2; Start 03/02/17 at 04:30 Propofol (Diprivan) 100 ml @ 2.4 mls/hr Q12H IV Last administered on 01:16; Admin Dose 14.4 MLS/HR; Start 03/02/17 at 05:30 Aspirin (Aspirin) 81 mg DAILY NGT Last administered on 03/03/17 09:22; Admin Dose 81 MG; Start 03/03/17 at 09:00; Status Future Hold Miscellaneous Information (*Rx Drug Level Order Reminder*) VANCOMYCIN TROUGH ON 02/19... ONCE ONCE XX ; Start 03/04/17 at 16:00; Stop 03/04/17 at 16:01 Insulin Aspart NOVOLOG *MILD* ALGORI... Q4 SC ; Start 03/03/17 at 22:00 Dextrose (D5W) 1,000 ml @ 70 mls/hr [id number] IV Last administered on 03/03/17 20:58; Admin Dose 70 MLS/HR; Start 03/03/17 at 20:30 Pantoprazole (Protonix Iv) 40 mg BID@06,18 IV Last administered on 03/04/17 05 :46; Admin Dose 40 MG; Start 03/04/17 at 06:00 TYREE MCKOY MD Mar 04, 2017 07:00
[2017-03-04 08:00] LABS: AADO2 Arterial 114.5 mmHg (7.0-24.0); Allen Test ACCEPTAB; Arterial Base Excess -2.9 mmol/L (-3.0-3); Arterial COHb 0.3 % (0.0-3.0); Arterial Fraction of Oxyhgb 90.9 % (93.0-99.0); Arterial MetHb 0.2 % (0.0-1.5); Arterial Total Hemglobin 10.6 g/dl (12.0-18.0); MODE VENT - AC
[2017-03-04] MEDS: AMIODARONE 200 MG TAB NGT SCH (09:17)
--- NOTE | 2017-03-04 09:28 | RADRPT ---
PROCEDURE: XR Chest 1 View. CLINICAL INDICATION: Shortness of breath. TECHNIQUE: AP view of the chest was obtained. COMPARISON: Yesterday. FINDINGS: The heart size is within normal limits. Calcified atherosclerosis is noted in the aorta. Endotrache al and nasogastric tubes are stable and appear in grossly appropriate location. Left-sided central line is unchanged. Central pulmonary vascular congestion and interstitial prominence in both lungs is unchanged. Scattered atelectasis is seen throughout the right lung and in the left lower lobe. O sseous structures are unchanged. IMPRESSION: Calcified atherosclerosis in the aorta. Stable mild central pulmonary vascular congestion and interstitial prominence in both lungs. Scattered atelectasis throughout the right lung and in the left lower lobe. RPTAT: AA .Porfirio Jensen MD, Date Time Electronically viewed and signed by .Porfirio Jensen MD, on 03/04/2017 09:28 .P/
--- NOTE | 2017-03-04 09:43 | CONS ---
Date/Time of Note Date/Time of Note DATE: 03/04/17 TIME: 09:27 Assessment/Plan Assessment/Plan Additional Assessment/Plan Assessment * Coffee ground emesis Upper gi bleed vs others * Sepsis * Acute respiratory failure managed by pulmonary Plan * EGD today * continue present management * further orders will depend on clinical course Consultation Date/Type/Reason Admit Date/Time Mar 01, 2017 at 20:20 Date of Consultation: Mar 04, 2017 Type of Consultation: gastroenterology Reason for Consultation coffee ground emesis Referring Provider: MICHELLE MORENO Hx of Present Illness 86 year old female with past medical history of diabetes hyperlipidemia,who admitted at our emergency room because acute respiratory failure secondary to pneumonia,sepsis.She is presently admitted in ICU being referred for evaluation of coffee ground emesis.No episode of hematochezia,nor fresh bleeding per NGT.however coffee ground emesis is noted per NGT.Present hemoglobin is 9.1 from 12 since admission.Patient had episode of atrial fibrillation with RVR yesterday and was plced on amiodarone drip.Presently patient is off amiodarone drip Past Medical History Medical History: diabetes, high cholesterol Past Surgical History Past Surgical Hx: no surgical history Social History Smoking Status: Former smoker Exam/Review of Systems Vital Signs Vitals Vital Signs Date Time Temp Pulse Resp B/P Pulse Ox O2 Delivery O2 Flow Rate FiO2 03/04/17 08:00 71 03/04/17 06:00 20 99/43 98 Mechanical Ventilator 03/04/17 04:47 30 03/04/17 04:00 98.2 03/01/17 22:02 3.0 Intake and Output 03/03/17 03/03/17 03/04/17 15:00 23:00 07:00 Intake Total 631.8 ml 970.0 ml 790.8 ml Output Total 910 ml 300 ml Balance 631.8 ml 60.0 ml 490.8 ml Exam Constitutional: frail, other (sedated) Head: atraumatic, normocephalic Eyes: nl conjunctiva ENMT: intubated, mucosa pink and moist Neck: supple Respiratory: diminished breath sounds, normal air movement Cardiovascular: nl pulses, regular rate and rhythm Gastrointestinal: soft Genitourinary - Female: nl adnexae Musculoskeletal: muscle weakness Extremities: edema Neurological: other (sedated) Skin: nl turgor, No rash or lesions Results Result Diagram: 03/04/17 0445 03/04/17 0445 Results 24 hrs Laboratory Tests Test 03/03/17 10:57 03/03/17 12:47 03/03/17 14:28 03/03/17 15:58 Bedside Glucose 95 109 97 109 Test 03/03/17 18:01 03/03/17 18:15 03/03/17 19:19 03/03/17 20:13 Bedside Glucose 78 77 77 Hemoglobin 9.6 L Hematocrit 30.6 L Test 03/03/17 22:12 03/04/17 01:15 03/04/17 01:16 03/04/17 04:45 Bedside Glucose 84 91 Sodium Level 135 133 L Potassium Level 3.5 3.2 L Chloride Level 109 106 Carbon Dioxide Level 26 24 Anion Gap 4 L 6 L Blood Urea Nitrogen 26 H 23 H Creatinine 0.80 0.79 Glucose Level 86 229 #H Calcium Level 7.7 L 7.5 L White Blood Count 18.6 #H Red Blood Count 3.03 L Hemoglobin 9.1 L Hematocrit 30.0 L Mean Corpuscular Volume 99.0 Mean Corpuscular Hemoglobin 30.0 Mean Corpuscular Hemoglobin Concent 30.3 L Red Cell Distribution Width 15.1 H Platelet Count 243 Mean Platelet Volume 11.4 H Neutrophils % 78.6 H Lymphocytes % 13.0 L Monocytes % 5.5 Eosinophils % 0.9 Basophils % 0.2 Nucleated Red Blood Cells % 0.0 Neutrophils # 14.6 H Lymphocytes # 2.4 Monocytes # 1.0 H Eosinophils # 0.2 Basophils # 0.0 Nucleated Red Blood Cells # 0.0 Test 03/04/17 04:56 03/04/17 07:00 Bedside Glucose 96 Blood Gas Specimen Source Blood arterial Arterial Blood Date Drawn 03/04/2017 7:30:27 AM Arterial Blood pH (Temp corrected) 7.417 Arterial Blood pCO2 (Temp correct) 33.3 L Arterial Blood pO2 (Temp corrected) 60.3 L Arterial Blood HCO3 21.0 L Arterial Blood Base Excess -2.9 Arterial Blood Oxygen Saturation 91.4 L Pablo Test ACCEPTAB Arterial Blood Gas Puncture Site Right Radial Arterial Blood Carboxyhemoglobin 0.3 Arterial Blood Methemoglobin 0.2 Blood Gas A-a O2 Differential 114.5 H Oxyhemoglobin Percent 90.9 L Total Hemoglobin 10.6 L Blood Gas Temperature 37.0 Blood Gas Respiration Rate 20.0 Blood Gas Actual Respiration Rate 20 Blood Gas Modality VENT - AC FiO2 30.0 Blood Gas Tidal Volume 500.0 Blood Gas Low PEEP Setting 5.0 Blood Gas Notified Whom JLD Blood Gas Notified Time 03/04/2017 8:00:08 AM Medications Medications Current Medications Acetaminophen 650 mg 650 mg Q4H PRN [place] PAIN LEVEL 1-3 OR FEVER; Start 03/02/17 at 00:30 Piperacillin Sod/ Tazobactam Sod (Zosyn 3.375gm/ 100 ml (Pmx)) 100 ml @ 200 mls /hr Q8 IVPB Last administered on 03/04/17 05:46; Admin Dose 200 MLS/HR; Start 03/02/17 at 00:30 Miscellaneous Information 1 ea NOTE XX ; Start 03/02/17 at 00:30 Glucose (Glutose) 15 gm Q15M PRN PO DECREASED GLUCOSE; Start 03/02/17 at 00:30 Glucose (Glutose) 22.5 gm Q15M PRN PO DECREASED GLUCOSE; Start 03/02/17 at 00: 30 Dextrose (D50w Syringe) 25 ml Q15M PRN IV DECREASED GLUCOSE; Start 03/02/17 at 00:30 Dextrose (D50w Syringe) 50 ml Q15M PRN IV DECREASED GLUCOSE; Start 03/02/17 at 00:30 Glucagon (Glucagen) 1 mg Q15M PRN IM DECREASED GLUCOSE; Start 03/02/17 at 00:30 Glucose 15 gm 15 gm Q15M PRN BUCCAL DECREASED GLUCOSE; Start 03/02/17 at 00:30 Vancomycin HCl 250 ml @ 125 mls/hr Q24H IVPB Last administered on 03/03/17 17 :21; Admin Dose 125 MLS/HR; Start 03/02/17 at 17:00 Norepinephrine 16 mg/Dextrose 500 ml @ 1.87 mls/hr TITRATE IV Last administered on 03/02/17 02:23; Admin Dose 9.37 MLS/HR; Start 03/02/17 at 01:00 Fluconazole (Diflucan 200 Mg/ NS (Pmx)) 100 ml @ 100 mls/hr Q24H IVPB Last administered on 03/04/17 04:34; Admin Dose 100 MLS/HR; Start 03/02/17 at 04:00 Dextrose (D50w Syringe) 25 ml Q15M PRN IV Till BS 80 mg/dL or above x2; Start 03/02/17 at 04:30 Dextrose 50 ml 50 ml Q15M PRN IV Till BS 80 mg/dL or above x2; Start 03/02/17 at 04:30 Propofol (Diprivan) 100 ml @ 2.4 mls/hr Q12H IV Last administered on 07:22; Admin Dose 14.4 MLS/HR; Start 03/02/17 at 05:30 Aspirin (Aspirin) 81 mg DAILY NGT Last administered on 03/03/17 09:22; Admin Dose 81 MG; Start 03/03/17 at 09:00; Status Future Hold Miscellaneous Information (*Rx Drug Level Order Reminder*) VANCOMYCIN TROUGH ON 02/19... ONCE ONCE XX ; Start 03/04/17 at 16:00; Stop 03/04/17 at 16:01 Insulin Aspart NOVOLOG *MILD* ALGORI... Q4 SC ; Start 03/03/17 at 22:00 Dextrose (D5W) 1,000 ml @ 70 mls/hr [id number] IV Last administered on 03/03/17 20:58; Admin Dose 70 MLS/HR; Start 03/03/17 at 20:30 Pantoprazole (Protonix Iv) 40 mg BID@06,18 IV Last administered on 03/04/17 05 :46; Admin Dose 40 MG; Start 03/04/17 at 06:00 Potassium Chloride (Potassium Chloride Pwd/Soln) 20 meq ONCE ONCE NGT ; Start 03/04/17 at 12:00; Stop 03/04/17 at 12:01 Amiodarone HCl (Cordarone) 200 mg DAILY NGT Last administered on 03/04/17 09: 17; Admin Dose 200 MG; Start 03/04/17 at 09:00 MONI MTZ MD Mar 04, 2017 09:37
[2017-03-04] MEDS: DEXTROSE 5% 1,000 ML IV SCH ×2 (10:51→21:43)
--- NOTE | 2017-03-04 11:52 | CONS ---
Date/Time of Note Date/Time of Note DATE: 03/04/17 TIME: 11:49 Consult Date/Type/Reason Admit Date/Time Mar 01, 2017 at 20:20 Initial Consult Date 03/02/17 Type of Consultation: Pulmonary Ordering Provider: MICHELLE MORENO Subjective Patient opens eyes off sedation. Appears comfortable no respiratory distress. Objective Vital Signs Date Time Temp Pulse Resp B/P Pulse Ox O2 Delivery O2 Flow Rate FiO2 03/04/17 11:00 64 105/50 100 Mechanical Ventilator 03/04/17 10:30 20 03/04/17 08:00 98.5 03/04/17 04:47 30 03/01/17 22:02 3.0 Intake and Output 03/03/17 03/03/17 03/04/17 15:00 23:00 07:00 Intake Total 631.8 ml 970.0 ml 875.2 ml Output Total 910 ml 300 ml Balance 631.8 ml 60.0 ml 575.2 ml Exam PHYSICAL EXAMINATION GENERAL: Elderly lady intubated on mechanical ventilation appears comfortable at rest VITAL SIGNS: see below. HEENT: Pupils equal, round, and reactive to light. CARDIAC: S1, S2, 1/6 systolic ejection murmur CHEST: Diminished air entry bilaterally. ABDOMEN: Mildly distended. Bowel sounds present no guarding or rebound EXTREMITIES: No cyanosis, clubbing edema +1 NEUROLOGIC: Generalized weakness Results/Medications Result Diagram: 03/04/17 0445 03/04/17 0445 Results 24 hrs Chest x-ray Mild pulmonary edema Laboratory Tests Test 03/03/17 12:47 03/03/17 14:28 03/03/17 15:58 03/03/17 18:01 Bedside Glucose 109 97 109 78 Test 03/03/17 18:15 03/03/17 19:19 03/03/17 20:13 03/03/17 22:12 Hemoglobin 9.6 L Hematocrit 30.6 L Bedside Glucose 77 77 84 Test 03/04/17 01:15 03/04/17 01:16 03/04/17 04:45 03/04/17 04:56 Sodium Level 135 133 L Potassium Level 3.5 3.2 L Chloride Level 109 106 Carbon Dioxide Level 26 24 Anion Gap 4 L 6 L Blood Urea Nitrogen 26 H 23 H Creatinine 0.80 0.79 Glucose Level 86 229 #H Calcium Level 7.7 L 7.5 L Bedside Glucose 91 96 White Blood Count 18.6 #H Red Blood Count 3.03 L Hemoglobin 9.1 L Hematocrit 30.0 L Mean Corpuscular Volume 99.0 Mean Corpuscular Hemoglobin 30.0 Mean Corpuscular Hemoglobin Concent 30.3 L Red Cell Distribution Width 15.1 H Platelet Count 243 Mean Platelet Volume 11.4 H Neutrophils % 78.6 H Lymphocytes % 13.0 L Monocytes % 5.5 Eosinophils % 0.9 Basophils % 0.2 Nucleated Red Blood Cells % 0.0 Neutrophils # 14.6 H Lymphocytes # 2.4 Monocytes # 1.0 H Eosinophils # 0.2 Basophils # 0.0 Nucleated Red Blood Cells # 0.0 Test 03/04/17 07:00 03/04/17 09:19 Blood Gas Specimen Source Blood arterial Arterial Blood Date Drawn 03/04/2017 7:30:27 AM Arterial Blood pH (Temp corrected) 7.417 Arterial Blood pCO2 (Temp correct) 33.3 L Arterial Blood pO2 (Temp corrected) 60.3 L Arterial Blood HCO3 21.0 L Arterial Blood Base Excess -2.9 Arterial Blood Oxygen Saturation 91.4 L Pablo Test ACCEPTAB Arterial Blood Gas Puncture Site Right Radial Arterial Blood Carboxyhemoglobin 0.3 Arterial Blood Methemoglobin 0.2 Blood Gas A-a O2 Differential 114.5 H Oxyhemoglobin Percent 90.9 L Total Hemoglobin 10.6 L Blood Gas Temperature 37.0 Blood Gas Respiration Rate 20.0 Blood Gas Actual Respiration Rate 20 Blood Gas Modality VENT - AC FiO2 30.0 Blood Gas Tidal Volume 500.0 Blood Gas Low PEEP Setting 5.0 Blood Gas Notified Whom JLD Blood Gas Notified Time 03/04/2017 8:00:08 AM Bedside Glucose 78 Medications Current Medications Acetaminophen 650 mg 650 mg Q4H PRN [place] PAIN LEVEL 1-3 OR FEVER; Start 03/02/17 at 00:30 Piperacillin Sod/ Tazobactam Sod (Zosyn 3.375gm/ 100 ml (Pmx)) 100 ml @ 200 mls /hr Q8 IVPB Last administered on 03/04/17t 05:46; Admin Dose 200 MLS/HR; Start 03/02/17 at 00:30 Miscellaneous Information 1 ea NOTE XX ; Start 03/02/17 at 00:30 Glucose (Glutose) 15 gm Q15M PRN PO DECREASED GLUCOSE; Start 03/02/17 at 00:30 Glucose (Glutose) 22.5 gm Q15M PRN PO DECREASED GLUCOSE; Start 03/02/17 at 00: 30 Dextrose (D50w Syringe) 25 ml Q15M PRN IV DECREASED GLUCOSE; Start 03/02/17 at 00:30 Dextrose (D50w Syringe) 50 ml Q15M PRN IV DECREASED GLUCOSE; Start 03/02/17 at 00:30 Glucagon (Glucagen) 1 mg Q15M PRN IM DECREASED GLUCOSE; Start 03/02/17 at 00:30 Glucose 15 gm 15 gm Q15M PRN BUCCAL DECREASED GLUCOSE; Start 03/02/17 at 00:30 Vancomycin HCl 250 ml @ 125 mls/hr Q24H IVPB Last administered on 03/03/17 17 :21; Admin Dose 125 MLS/HR; Start 03/02/17 at 17:00 Norepinephrine 16 mg/Dextrose 500 ml @ 1.87 mls/hr TITRATE IV Last administered on 03/02/17 02:23; Admin Dose 9.37 MLS/HR; Start 03/02/17 at 01:00 Fluconazole (Diflucan 200 Mg/ NS (Pmx)) 100 ml @ 100 mls/hr Q24H IVPB Last administered on 03/04/17 04:34; Admin Dose 100 MLS/HR; Start 03/02/17 at 04:00 Dextrose (D50w Syringe) 25 ml Q15M PRN IV Till BS 80 mg/dL or above x2; Start 03/02/17 at 04:30 Dextrose 50 ml 50 ml Q15M PRN IV Till BS 80 mg/dL or above x2; Start 03/02/17 at 04:30 Propofol (Diprivan) 100 ml @ 2.4 mls/hr Q12H IV Last administered on 07:22; Admin Dose 14.4 MLS/HR; Start 03/02/17 at 05:30 Aspirin (Aspirin) 81 mg DAILY NGT Last administered on 03/03/17 09:22; Admin Dose 81 MG; Start 03/03/17 at 09:00; Status Future Hold Miscellaneous Information (*Rx Drug Level Order Reminder*) VANCOMYCIN TROUGH ON 02/19... ONCE ONCE XX ; Start 03/04/17 at 16:00; Stop 03/04/17 at 16:01 Insulin Aspart NOVOLOG *MILD* ALGORI... Q4 SC ; Start 03/03/17 at 22:00 Dextrose (D5W) 1,000 ml @ 70 mls/hr [id number] IV Last administered on 03/04/17 10:51; Admin Dose 70 MLS/HR; Start 03/03/17 at 20:30 Pantoprazole (Protonix Iv) 40 mg BID@06,18 IV Last administered on 03/04/17 05 :46; Admin Dose 40 MG; Start 03/04/17 at 06:00 Potassium Chloride (Potassium Chloride Pwd/Soln) 20 meq ONCE ONCE NGT Last administered on 03/04/17 11:44; Admin Dose 20 MEQ; Start 03/04/17 at 12:00; Stop 03/04/17 at 12:01 Amiodarone HCl (Cordarone) 200 mg DAILY NGT Last administered on 03/04/17 09: 17; Admin Dose 200 MG; Start 03/04/17 at 09:00 Assessment/Plan Chief Complaint/Hosp Course Chief Complaint/Hosp Course 86-year-old lady presents with increasing shortness of breath orthopnea PND of 2 days duration. On admission she was noted to be markedly labored with subsequent obtunded respiratory status requiring emergent intubation and mechanical ventilation. She had central line placed for hypotension and is now been placed on vasopressors. In addition she has atrial fibrillation requiring initiation of Cardizem drip. More hemodynamically stable today, scheduled for endoscopy. 1. Hypoxemic and hypercapnic respiratory failure likely secondary to community- acquired pneumonia 2. Atrial fibrillation with rapid ventricular rate likely exacerbated by hypoxemia and cardiac ischemia 3. 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 Status post septic shock secondary to above 4. Questionable GI bleed Plan 1. Decrease IV fluids 2. Broad-spectrum antibiotic coverage pending cultures 3. Follow serial lactates 4. CPAP weaning trial after endoscopy 5. Continue insulin drip for hyperglycemia 6. Vasopressor support as needed 7. Endoscopy scheduled today Disposition Continue ICU care critical care time 40 minutes discussed with primary team and nursing staff Problems: MARY ALY MD, [facility] Mar 04, 2017 11:51
[2017-03-04] MEDS ORDERED: POTASSIUM CHLORIDE 20 MEQ POWDER FOR ORAL SOLN NGT ONE (12:00)
--- NOTE | 2017-03-04 13:56 | CONS ---
Date/Time of Note Date/Time of Note DATE: 03/04/17 TIME: 13:55 Assessment/Plan Assessment/Plan Chief Complaint/Hosp Course No acute changes failed weaning, lying comfortably in bed Temperature 98.5 pulse 64 respirations 20 blood pressure 121/54 saturation 100% on 30 FiO2 WBC 18.6 H&H 9.1 and 30 platelets 243 neutrophils 78.6 BUN 23 creatinine 0.79 Chest x-ray this morning revealed stable mild central pulmonary vascular congestion scattered atelectasis throughout the right lung and left lung lobe Indwelling's endotracheal tube, Pierce catheter NG tube Antibiotics vancomycin, Zosyn Physical examination: Chronically ill-appearing elderly woman who is intubated in no distress. Head atraumatic normocephalic sclera nonicteric bugle mucosa dry. Neck is supple, trachea midline. Chest rise symmetrical breath sounds diminished basis. S1-S2. Abdomen soft bowel tones hypoactive. Extremities with trace edema. Assessment: 1. Sepsis with shock and persistent leukocytosis==> off pressors 2. Community-acquired pneumonia 3. Acute respiratory failure, intubated 4. Diabetes 5. Non-ST elevation [place] Plan: Hemodynamically stable, continue present care, antibiotics, vent management per pulmonary, follow cardiology recommendations Discussed with RN Problems: Consultation Date/Type/Reason Admit Date/Time Mar 01, 2017 at 20:20 Initial Consult Date 03/02/17 Type of Consultation: ID Referring Provider: MICHELLE MORENO Exam/Review of Systems Vital Signs Vitals Vital Signs Date Time Temp Pulse Resp B/P Pulse Ox O2 Delivery O2 Flow Rate FiO2 03/04/17 12:00 45 03/04/17 11:00 64 105/50 100 Mechanical Ventilator 03/04/17 10:30 20 03/04/17 08:00 98.5 03/01/17 22:02 3.0 Intake and Output 03/03/17 03/03/17 03/04/17 15:00 23:00 07:00 Intake Total 631.8 ml 970.0 ml 875.2 ml Output Total 910 ml 300 ml Balance 631.8 ml 60.0 ml 575.2 ml Results Result Diagram: 03/04/17 0445 03/04/17 0445 Results 24 hrs Laboratory Tests Test 03/03/17 14:28 03/03/17 15:58 03/03/17 18:01 03/03/17 18:15 Bedside Glucose 97 109 78 Hemoglobin 9.6 L Hematocrit 30.6 L Test 03/03/17 19:19 03/03/17 20:13 03/03/17 22:12 03/04/17 01:15 Bedside Glucose 77 77 84 Sodium Level 135 Potassium Level 3.5 Chloride Level 109 Carbon Dioxide Level 26 Anion Gap 4 L Blood Urea Nitrogen 26 H Creatinine 0.80 Glucose Level 86 Calcium Level 7.7 L Test 03/04/17 01:16 03/04/17 04:45 03/04/17 04:56 03/04/17 07:00 Bedside Glucose 91 96 White Blood Count 18.6 #H Red Blood Count 3.03 L Hemoglobin 9.1 L Hematocrit 30.0 L Mean Corpuscular Volume 99.0 Mean Corpuscular Hemoglobin 30.0 Mean Corpuscular Hemoglobin Concent 30.3 L Red Cell Distribution Width 15.1 H Platelet Count 243 Mean Platelet Volume 11.4 H Neutrophils % 78.6 H Lymphocytes % 13.0 L Monocytes % 5.5 Eosinophils % 0.9 Basophils % 0.2 Nucleated Red Blood Cells % 0.0 Neutrophils # 14.6 H Lymphocytes # 2.4 Monocytes # 1.0 H Eosinophils # 0.2 Basophils # 0.0 Nucleated Red Blood Cells # 0.0 Sodium Level 133 L Potassium Level 3.2 L Chloride Level 106 Carbon Dioxide Level 24 Anion Gap 6 L Blood Urea Nitrogen 23 H Creatinine 0.79 Glucose Level 229 #H Calcium Level 7.5 L Blood Gas Specimen Source Blood arterial Arterial Blood Date Drawn 03/04/2017 7:30:27 AM Arterial Blood pH (Temp corrected) 7.417 Arterial Blood pCO2 (Temp correct) 33.3 L Arterial Blood pO2 (Temp corrected) 60.3 L Arterial Blood HCO3 21.0 L Arterial Blood Base Excess -2.9 Arterial Blood Oxygen Saturation 91.4 L Pablo Test ACCEPTAB Arterial Blood Gas Puncture Site Right Radial Arterial Blood Carboxyhemoglobin 0.3 Arterial Blood Methemoglobin 0.2 Blood Gas A-a O2 Differential 114.5 H Oxyhemoglobin Percent 90.9 L Total Hemoglobin 10.6 L Blood Gas Temperature 37.0 Blood Gas Respiration Rate 20.0 Blood Gas Actual Respiration Rate 20 Blood Gas Modality VENT - AC FiO2 30.0 Blood Gas Tidal Volume 500.0 Blood Gas Low PEEP Setting 5.0 Blood Gas Notified Whom JLD Blood Gas Notified Time 03/04/2017 8:00:08 AM Test 03/04/17 09:19 03/04/17 12:52 Bedside Glucose 78 92 Medications Medications Current Medications Acetaminophen 650 mg 650 mg Q4H PRN [place] PAIN LEVEL 1-3 OR FEVER; Start 03/02/17 at 00:30 Piperacillin Sod/ Tazobactam Sod (Zosyn 3.375gm/ 100 ml (Pmx)) 100 ml @ 200 mls /hr Q8 IVPB Last administered on 03/04/17 05:46; Admin Dose 200 MLS/HR; Start 03/02/17 at 00:30 Miscellaneous Information 1 ea NOTE XX ; Start 03/02/17 at 00:30 Glucose (Glutose) 15 gm Q15M PRN PO DECREASED GLUCOSE; Start 03/02/17 at 00:30 Glucose (Glutose) 22.5 gm Q15M PRN PO DECREASED GLUCOSE; Start 03/02/17 at 00: 30 Dextrose (D50w Syringe) 25 ml Q15M PRN IV DECREASED GLUCOSE; Start 03/02/17 at 00:30 Dextrose (D50w Syringe) 50 ml Q15M PRN IV DECREASED GLUCOSE; Start 03/02/17 at 00:30 Glucagon (Glucagen) 1 mg Q15M PRN IM DECREASED GLUCOSE; Start 03/02/17 at 00:30 Glucose 15 gm 15 gm Q15M PRN BUCCAL DECREASED GLUCOSE; Start 03/02/17 at 00:30 Vancomycin HCl 250 ml @ 125 mls/hr Q24H IVPB Last administered on 03/03/17 17 :21; Admin Dose 125 MLS/HR; Start 03/02/17 at 17:00 Norepinephrine 16 mg/Dextrose 500 ml @ 1.87 mls/hr TITRATE IV Last administered on 03/02/17 02:23; Admin Dose 9.37 MLS/HR; Start 03/02/17 at 01:00 Fluconazole (Diflucan 200 Mg/ NS (Pmx)) 100 ml @ 100 mls/hr Q24H IVPB Last administered on 03/04/17 04:34; Admin Dose 100 MLS/HR; Start 03/02/17 at 04:00 Dextrose (D50w Syringe) 25 ml Q15M PRN IV Till BS 80 mg/dL or above x2; Start 03/02/17 at 04:30 Dextrose 50 ml 50 ml Q15M PRN IV Till BS 80 mg/dL or above x2; Start 03/02/17 at 04:30 Propofol (Diprivan) 100 ml @ 2.4 mls/hr Q12H IV Last administered on 07:22; Admin Dose 14.4 MLS/HR; Start 03/02/17 at 05:30 Aspirin (Aspirin) 81 mg DAILY NGT Last administered on 03/03/17 09:22; Admin Dose 81 MG; Start 03/03/17 at 09:00; Status Future Hold Miscellaneous Information (*Rx Drug Level Order Reminder*) VANCOMYCIN TROUGH ON 02/19... ONCE ONCE XX ; Start 03/04/17 at 16:00; Stop 03/04/17 at 16:01 Insulin Aspart NOVOLOG *MILD* ALGORI... Q4 SC ; Start 03/03/17 at 22:00 Dextrose (D5W) 1,000 ml @ 70 mls/hr [id number] IV Last administered on 03/04/17 10:51; Admin Dose 70 MLS/HR; Start 03/03/17 at 20:30 Pantoprazole (Protonix Iv) 40 mg BID@06,18 IV Last administered on 03/04/17 05 :46; Admin Dose 40 MG; Start 03/04/17 at 06:00 Amiodarone HCl (Cordarone) 200 mg DAILY NGT Last administered on 03/04/17 09: 17; Admin Dose 200 MG; Start 03/04/17 at 09:00 HAO CUTLER NP Mar 04, 2017 13:56
--- NOTE | 2017-03-04 15:47 | PN ---
Date/Time of Note Date/Time of Note DATE: 03/04/17 TIME: 15:47 Assessment/Plan VTE Prophylaxis VTE Prophylaxis Intervention: SCD's Assessment/Plan Chief Complaint/Hosp Course 1. acute respiratory failure: /Acute decompensation respiratory failure Likely secondary to underlying respiratory infection Continue mechanical ventilation at this time. pulmonology consulted, vent management as per pulmonology Continue IV antibiotics and breathing treatment 2. Severe sepsis: Likely secondary to respiratory infection. Bronchiolitis versus bronchiectasis Continue IV vancomycin and Zosyn. Vasopressor support as needed. IV fluid hydration with normal saline. Infectious disease doctor has been consulted 3. Tachycardia: Likely secondary to #2 and #1. Status post Cardizem drip. cardiology consult has been obtained. echocardiogram demonstrated normal ejection fraction. On amiodarone drip, rate control at this time 4. suspected esophagitis: Continue IV fluconazole. Consult military science instructor 5. diabetes mellitus: Continue insulin sliding scale. 6. History of essential hypertension: At the current time will hold home antihypertensive medication secondary to patient's hypotension. 7. 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 DVT and GI prophylaxis: SCDs, Protonix Further treatment strategy will be implemented as per the clinical course. Prognosis: Guarded Problems: Subjective 24 Hr Interval Summary Subjective hx not possible: pt non-verbal Exam/Review of Systems Vital Signs Vitals Vital Signs Date Time Temp Pulse Resp B/P Pulse Ox O2 Delivery O2 Flow Rate FiO2 03/04/17 14:00 58 20 108/49 100 Mechanical Ventilator 03/04/17 13:20 45 03/04/17 12:00 98.0 03/01/17 22:02 3.0 Intake and Output 03/03/17 03/03/17 03/04/17 15:00 23:00 07:00 Intake Total 631.8 ml 970.0 ml 875.2 ml Output Total 910 ml 300 ml Balance 631.8 ml 60.0 ml 575.2 ml Exam Constitutional: non-verbal ENMT: intubated Respiratory: clear to auscultation Cardiovascular: regular rate and rhythm Gastrointestinal: soft, No distended Musculoskeletal: nl extremities to inspection Results Result Diagram: 03/04/17 0445 03/04/17 0445 Results 24 hrs Laboratory Tests Test 03/03/17 15:58 03/03/17 18:01 03/03/17 18:15 03/03/17 19:19 Bedside Glucose 109 78 77 Hemoglobin 9.6 L Hematocrit 30.6 L Test 03/03/17 20:13 03/03/17 22:12 03/04/17 01:15 03/04/17 01:16 Bedside Glucose 77 84 91 Sodium Level 135 Potassium Level 3.5 Chloride Level 109 Carbon Dioxide Level 26 Anion Gap 4 L Blood Urea Nitrogen 26 H Creatinine 0.80 Glucose Level 86 Calcium Level 7.7 L Test 03/04/17 04:45 03/04/17 04:56 03/04/17 07:00 03/04/17 09:19 White Blood Count 18.6 #H Red Blood Count 3.03 L Hemoglobin 9.1 L Hematocrit 30.0 L Mean Corpuscular Volume 99.0 Mean Corpuscular Hemoglobin 30.0 Mean Corpuscular Hemoglobin Concent 30.3 L Red Cell Distribution Width 15.1 H Platelet Count 243 Mean Platelet Volume 11.4 H Neutrophils % 78.6 H Lymphocytes % 13.0 L Monocytes % 5.5 Eosinophils % 0.9 Basophils % 0.2 Nucleated Red Blood Cells % 0.0 Neutrophils # 14.6 H Lymphocytes # 2.4 Monocytes # 1.0 H Eosinophils # 0.2 Basophils # 0.0 Nucleated Red Blood Cells # 0.0 Sodium Level 133 L Potassium Level 3.2 L Chloride Level 106 Carbon Dioxide Level 24 Anion Gap 6 L Blood Urea Nitrogen 23 H Creatinine 0.79 Glucose Level 229 #H Calcium Level 7.5 L Bedside Glucose 96 78 Blood Gas Specimen Source Blood arterial Arterial Blood Date Drawn 03/04/2017 7:30:27 AM Arterial Blood pH (Temp corrected) 7.417 Arterial Blood pCO2 (Temp correct) 33.3 L Arterial Blood pO2 (Temp corrected) 60.3 L Arterial Blood HCO3 21.0 L Arterial Blood Base Excess -2.9 Arterial Blood Oxygen Saturation 91.4 L Pablo Test ACCEPTAB Arterial Blood Gas Puncture Site Right Radial Arterial Blood Carboxyhemoglobin 0.3 Arterial Blood Methemoglobin 0.2 Blood Gas A-a O2 Differential 114.5 H Oxyhemoglobin Percent 90.9 L Total Hemoglobin 10.6 L Blood Gas Temperature 37.0 Blood Gas Respiration Rate 20.0 Blood Gas Actual Respiration Rate 20 Blood Gas Modality VENT - AC FiO2 30.0 Blood Gas Tidal Volume 500.0 Blood Gas Low PEEP Setting 5.0 Blood Gas Notified Whom JLD Blood Gas Notified Time 03/04/2017 8:00:08 AM Test 03/04/17 12:52 Bedside Glucose 92 Medications Medications Current Medications Acetaminophen 650 mg 650 mg Q4H PRN IN PAIN LEVEL 1-3 OR FEVER; Start 03/02/17 at 00:30 Piperacillin Sod/ Tazobactam Sod (Zosyn 3.375gm/ 100 ml (Pmx)) 100 ml @ 200 mls /hr Q8 IVPB Last administered on 03/04/17 14:01; Admin Dose 200 MLS/HR; Start 03/02/17 at 00:30 Miscellaneous Information 1 ea NOTE XX ; Start 03/02/17 at 00:30 Glucose (Glutose) 15 gm Q15M PRN PO DECREASED GLUCOSE; Start 03/02/17 at 00:30 Glucose (Glutose) 22.5 gm Q15M PRN PO DECREASED GLUCOSE; Start 03/02/17 at 00: 30 Dextrose (D50w Syringe) 25 ml Q15M PRN IV DECREASED GLUCOSE; Start 03/02/17 at 00:30 Dextrose (D50w Syringe) 50 ml Q15M PRN IV DECREASED GLUCOSE; Start 03/02/17 at 00:30 Glucagon (Glucagen) 1 mg Q15M PRN IM DECREASED GLUCOSE; Start 03/02/17 at 00:30 Glucose 15 gm 15 gm Q15M PRN BUCCAL DECREASED GLUCOSE; Start 03/02/17 at 00:30 Vancomycin HCl 250 ml @ 125 mls/hr Q24H IVPB Last administered on 03/03/17 17 :21; Admin Dose 125 MLS/HR; Start 03/02/17 at 17:00 Norepinephrine 16 mg/Dextrose 500 ml @ 1.87 mls/hr TITRATE IV Last administered on 03/02/17 02:23; Admin Dose 9.37 MLS/HR; Start 03/02/17 at 01:00 Fluconazole (Diflucan 200 Mg/ NS (Pmx)) 100 ml @ 100 mls/hr Q24H IVPB Last administered on 03/04/17 04:34; Admin Dose 100 MLS/HR; Start 03/02/17 at 04:00 Dextrose (D50w Syringe) 25 ml Q15M PRN IV Till BS 80 mg/dL or above x2; Start 03/02/17 at 04:30 Dextrose 50 ml 50 ml Q15M PRN IV Till BS 80 mg/dL or above x2; Start 03/02/17 at 04:30 Propofol (Diprivan) 100 ml @ 2.4 mls/hr Q12H IV Last administered on 14:19; Admin Dose 14.4 MLS/HR; Start 03/02/17 at 05:30 Aspirin (Aspirin) 81 mg DAILY NGT Last administered on 03/03/17 09:22; Admin Dose 81 MG; Start 03/03/17 at 09:00; Status Future Hold Miscellaneous Information (*Rx Drug Level Order Reminder*) VANCOMYCIN TROUGH ON 02/19... ONCE ONCE XX ; Start 03/04/17 at 16:00; Stop 03/04/17 at 16:01 Insulin Aspart NOVOLOG *MILD* ALGORI... Q4 SC ; Start 03/03/17 at 22:00 Dextrose (D5W) 1,000 ml @ 70 mls/hr [id number] IV Last administered on 03/04/17 10:51; Admin Dose 70 MLS/HR; Start 03/03/17 at 20:30 Pantoprazole (Protonix Iv) 40 mg BID@06,18 IV Last administered on 03/04/17 05 :46; Admin Dose 40 MG; Start 03/04/17 at 06:00 Amiodarone HCl (Cordarone) 200 mg DAILY NGT Last administered on 03/04/17 09: 17; Admin Dose 200 MG; Start 03/04/17 at 09:00 PETRA JAMESON Mar 04, 2017 15:47
[2017-03-04] MEDS: VANCOMYCIN 1 GM in NS 250 ML IVPB SCH ×2 (16:56→19:17)
[2017-03-04] MEDS: FUROSEMIDE 40 MG INJ IV SCH (16:56)
[2017-03-04] MEDS ORDERED: FENTAnyl 50 MCG/ML VIAL ONE (17:44)
[2017-03-04] MEDS ORDERED: ETOMIDATE 20 MG INJ ONE (17:45)
[2017-03-05] VITALS (41 sets, daily range): BP systolic 86–124; BP diastolic 40–54; PULSE 59–86; RESP 17–20
[2017-03-05] MEDS: INSULIN ASPART [NOVOLOG] 3 ML PEN SC SCH ×4 (01:00→17:54)
[2017-03-05] MEDS: PROPOFOL 100 ML IV SCH ×5 (02:00→22:14)
[2017-03-05] MEDS: FLUCONAZOLE 200 MG/NS (PMX) 100 ML IVPB SCH (03:23)
[2017-03-05 05:18] LABS: ADD SCAN DIFF NO
[2017-03-05 05:24] LABS: ABNORMAL IP MESSAGE 1; HEMATOCRIT 29.9 % (37.0-47.0); HEMOGLOBIN 9.4 g/dl (12.0-16.0); MEAN CORPUSCULAR HEMOGLOBIN 30.8 pg (29.0-33.0); MEAN CORPUSCULAR HGB CONC 31.4 g/dl (32.0-37.0); MEAN PLATELET VOLUME 10.9 fl (7.4-10.4); PLATELET COUNT 244 10^3/UL (140-415); RED BLOOD COUNT 3.05 10^6/ul (4.20-5.40); RED CELL DISTRIBUTION WIDTH 14.8 % (11.5-14.5); WHITE BLOOD COUNT 13.8 10^3/ul (4.8-10.8)
[2017-03-05] MEDS: PANTOPRAZOLE 40 MG INJ IV SCH ×2 (05:32→17:45)
[2017-03-05] MEDS: PIPER-TAZO 3.375 GM IV (PMX) 100 ML IVPB SCH ×3 (05:33→21:31)
[2017-03-05 05:46] LABS: ALBUMIN 2.8 g/dl (3.3-4.9); ALBUMIN/GLOBULIN RATIO 1.03; CALCIUM 7.9 mg/dl (8.4-10.2); CREATININE 0.82 mg/dl (0.44-1.00); MAGNESIUM 1.7 mg/dl (1.7-2.5); POTASSIUM 3.3 mmol/L (3.5-5.1); TOTAL PROTEIN 5.5 g/dl (6.1-8.1)
[2017-03-05] MEDS: AMIODARONE 200 MG TAB NGT SCH (07:56)
[2017-03-05] MEDS: FUROSEMIDE 40 MG INJ IV SCH (09:29)
--- NOTE | 2017-03-05 09:39 | RADRPT ---
PROCEDURE: XR Chest 1 View. CLINICAL INDICATION: Shortness of breath. TECHNIQUE: AP view of the chest was obtained. COMPARISON: Yesterday. FINDINGS: The heart size is within normal limits. Calcified atherosclerosis is noted in the aorta. Endotrache al tube is stable and appears in grossly appropriate location. Nasogastric tube has been removed. Left-sided central line is unchanged. Diffuse mild interstitial prominence in both lungs is unchang ed. Small right pleural effusion with associated basilar atelectasis is better seen than on prior e xam. Calcified granuloma is noted in the right upper lobe. Osseous structures are unchanged. IMPRESSION: Calcified atherosclerosis in the aorta. Interval nasogastric tube removal. Stable diffuse interstitial prominence in both lungs. Small right pleural effusion with associated basilar atelectasis that is better seen than on prior e xam. Calcified granuloma in the right upper lobe. RPTAT: AA .Porfirio Jensen MD, Date Time Electronically viewed and signed by .Porfirio Jensen MD, on 03/05/2017 09:39 .P/
--- NOTE | 2017-03-05 10:08 | CONS ---
Date/Time of Note Date/Time of Note DATE: 03/05/17 TIME: 10:05 Assessment/Plan Assessment/Plan Chief Complaint/Hosp Course ID PROGRESS NOTE TOTAL ABX DAY #4 => ZOSYN, Vanco IV, Diflucan 24H INTERVAL SUMMARY/HOSPITAL COURSE * POD#1 -> s/p 03/04/17 EGD for GIB * PER GI NOTE=> Postoperative Diagnosis Impression: Erosive esophagitis w/ Erosive fundal gastritis, related to NG tube trauma. Nodular gastritis. Biopsies obtained * Pt in noncommunicative on the Vent, orally intubated, VSS, no fevers * BCx (-), urine = mixed contaminants PHYSICAL EXAMINATION: GENERAL: No fevers, VSS, NAD HEENT: ETT secure to Vent NECK: Trach midline, supple CHEST: Rise symmetrical w/course BS over vent tubing ABDOMEN: Soft, nondistended EXTREMITIES: Warm, dry, intact ID ASSESSMENT: 86 yo F s/PMHx mild dementia per memory impairment admit with: 1. Sepsis with shock and persistent leukocytosis==> RESOLVING * No fevers, WBC normalizing, off pressors, tachycardia resolved 2. Community-acquired pneumonia vs suspect ?ASPIRATION PNA ? * ASP PNA risk factors: Age, ?dementia, Esophagitis suspect GERD possible silent Aspiration syndrome ? 3. Acute respiratory failure, intubated 4. Upper GIB -> s/p EGD 03/04/17 revealed (+) Erosive esophagitis w/Erosive fundal gastritis, related to NG tube trauma. Nodular gastritis * Started on empiric Diflucan for concern esophagitis 5. Non-ST elevation [place] in setting sepsis + GIB 6. Parosysmal Afib w/RVR => Amiodarone 7. HTN Heart Disease w/diastolic HF * 2D ECHO: Mild concentric LVH w/ EF ~55 %l Stage I diastolic dysfunction. 8. Diabetes (-) MRSA Nares screen INVASIVES: PIV, ETT, FC ABX ALLERGY: KNDA CURRENT ABX: TOTAL ABX DAY # #4 => ZOSYN, Vanco IV, Diflucan ID PLAN: * Continue current ABX over the weekend * ID team will continue to monitor . Problems: Consultation Date/Type/Reason Admit Date/Time Mar 01, 2017 at 20:20 Initial Consult Date 03/04/17 Type of Consultation: ID Referring Provider: MICHELLE MORENO Exam/Review of Systems Vital Signs Vitals Vital Signs Date Time Temp Pulse Resp B/P Pulse Ox O2 Delivery O2 Flow Rate FiO2 03/05/17 09:00 70 20 96 40 03/05/17 08:00 97.6 99/40 Mechanical Ventilator 03/01/17 22:02 3.0 Intake and Output 03/04/17 03/04/17 03/05/17 15:00 23:00 07:00 Intake Total 935.2 ml 935.2 ml 709.8 ml Output Total 560 ml 2230 ml 925 ml Balance 375.2 ml -1294.8 ml -215.2 ml Results Result Diagram: 03/05/17 0500 03/05/17 0500 Results 24 hrs Laboratory Tests Test 03/04/17 12:52 03/04/17 16:06 03/04/17 17:02 03/04/17 20:47 Bedside Glucose 92 107 102 Vancomycin Level Trough 8.7 L Test 03/05/17 01:05 03/05/17 05:00 03/05/17 08:31 Bedside Glucose 96 125 White Blood Count 13.8 #H Red Blood Count 3.05 L Hemoglobin 9.4 L Hematocrit 29.9 L Mean Corpuscular Volume 98.0 Mean Corpuscular Hemoglobin 30.8 Mean Corpuscular Hemoglobin Concent 31.4 L Red Cell Distribution Width 14.8 H Platelet Count 244 Mean Platelet Volume 10.9 H Sodium Level 145 H Potassium Level 3.3 L Chloride Level 111 H Carbon Dioxide Level 26 Anion Gap 11 Blood Urea Nitrogen 14 # Creatinine 0.82 Glucose Level 101 # Calcium Level 7.9 L Magnesium Level 1.7 Total Bilirubin 0.0 L Direct Bilirubin 0.00 Indirect Bilirubin 0.0 Aspartate Amino Transf (AST/SGOT) 16 Alanine Aminotransferase (ALT/SGPT) 36 Alkaline Phosphatase 115 Total Protein 5.5 L Albumin 2.8 L Globulin 2.70 Albumin/Globulin Ratio 1.03 Medications Medications Current Medications Acetaminophen 650 mg 650 mg Q4H PRN [place] PAIN LEVEL 1-3 OR FEVER; Start 03/02/17 at 00:30 Piperacillin Sod/ Tazobactam Sod (Zosyn 3.375gm/ 100 ml (Pmx)) 100 ml @ 200 mls /hr Q8 IVPB Last administered on 03/05/17t 05:33; Admin Dose 200 MLS/HR; Start 03/02/17 at 00:30 Miscellaneous Information 1 ea NOTE XX ; Start 03/02/17 at 00:30 Glucose (Glutose) 15 gm Q15M PRN PO DECREASED GLUCOSE; Start 03/02/17 at 00:30 Glucose (Glutose) 22.5 gm Q15M PRN PO DECREASED GLUCOSE; Start 03/02/17 at 00: 30 Dextrose (D50w Syringe) 25 ml Q15M PRN IV DECREASED GLUCOSE; Start 03/02/17 at 00:30 Dextrose (D50w Syringe) 50 ml Q15M PRN IV DECREASED GLUCOSE; Start 03/02/17 at 00:30 Glucagon (Glucagen) 1 mg Q15M PRN IM DECREASED GLUCOSE; Start 03/02/17 at 00:30 Glucose 15 gm 15 gm Q15M PRN BUCCAL DECREASED GLUCOSE; Start 03/02/17 at 00:30 Vancomycin HCl 250 ml @ 125 mls/hr Q24H IVPB Last administered on 03/04/17 19 :17; Admin Dose 125 MLS/HR; Start 03/02/17 at 17:00 Norepinephrine 16 mg/Dextrose 500 ml @ 1.87 mls/hr TITRATE IV Last administered on 03/02/17 02:23; Admin Dose 9.37 MLS/HR; Start 03/02/17 at 01:00 Fluconazole (Diflucan 200 Mg/ NS (Pmx)) 100 ml @ 100 mls/hr Q24H IVPB Last administered on 03/05/17 03:23; Admin Dose 100 MLS/HR; Start 03/02/17 at 04:00 Dextrose (D50w Syringe) 25 ml Q15M PRN IV Till BS 80 mg/dL or above x2; Start 03/02/17 at 04:30 Dextrose 50 ml 50 ml Q15M PRN IV Till BS 80 mg/dL or above x2; Start 03/02/17 at 04:30 Propofol (Diprivan) 100 ml @ 2.4 mls/hr Q12H IV Last administered on 07:40; Admin Dose 19.2 MLS/HR; Start 03/02/17 at 05:30 Aspirin 81 mg 81 mg DAILY NGT Last administered on 03/03/17 09:22; Admin Dose 81 MG; Start 03/03/17 at 09:00; Status Future Hold Dextrose (D5W) 1,000 ml @ 70 mls/hr [id number] IV Last administered on 03/04/17 21:43; Admin Dose 70 MLS/HR; Start 03/03/17 at 20:30 Pantoprazole (Protonix Iv) 40 mg BID@06,18 IV Last administered on 03/05/17 05 :32; Admin Dose 40 MG; Start 03/04/17 at 06:00 Amiodarone HCl (Cordarone) 200 mg DAILY NGT Last administered on 03/04/17 09: 17; Admin Dose 200 MG; Start 03/04/17 at 09:00 Furosemide (Lasix) 40 mg DAILY IV Last administered on 03/05/17 09:29; Admin Dose 40 MG; Start 03/04/17 at 16:30 Insulin Aspart (Novolog Insulin Pen) NOVOLOG *MILD* ALGORI... Q6 SC ; Start at 12:00 SUZY ISABEL NP Mar 05, 2017 10:08
--- NOTE | 2017-03-05 10:55 | OPR ---
Date/Time of Note Date/Time of Note DATE: 03/04/17 TIME: 17:53 Operative Report Preoperative Diagnosis * GI bleeding Postoperative Diagnosis Impression: * Erosive esophagitis * Erosive fundal gastritis, related to NG tube trauma * Nodular gastritis. Biopsies obtained Plan: * PPI therapy * Review pathology * Monitor for further bleeding, transfuse as necessary Operation/Procedure Performed * EGD with biopsies Surgeon: MONI MTZ MD Anesthesia: MAC Estimated Blood Loss: none Specimens * Gastric antrum Grafts/Implants * None Complications: None MONI MTZ MD Mar 05, 2017 10:55
--- NOTE | 2017-03-05 11:01 | PN ---
Date/Time of Note Date/Time of Note DATE: 03/05/17 TIME: 10:56 Assessment/Plan VTE Prophylaxis VTE Prophylaxis Intervention: SCD's Lines/Catheters IV Catheter Type (from Nrs): Central Line Central line still needed: Yes Urinary Cath still in place: Yes Reason Cath still needed: urinary retention Assessment/Plan Assessment/Plan Assessment * Coffee ground emesis EGD 03/04/2017 Erosive esophagitis Erosive gastritis, NG tube trauma Nodular gastritis. Biopsies obtained * Sepsis * Acute respiratory failure managed by pulmonary Plan * Continue present regimen * Monitor hemoglobin and hematocrit, transfuse as necessary * Avoid NG tube due to significant trauma but if necessary may reinsert. Subjective 24 Hr Interval Summary Free Text/Dictation Course reviewed with nursing staff Patient undergoing ventilator weaning No evidence of overt GI bleeding Continue to avoid NG tube if at all possible but if necessary may reinsert Exam/Review of Systems Vital Signs Vitals Vital Signs Date Time Temp Pulse Resp B/P Pulse Ox O2 Delivery O2 Flow Rate FiO2 03/05/17 10:00 68 20 105/44 97 Mechanical Ventilator 03/05/17 09:00 40 03/05/17 08:00 97.6 03/01/17 22:02 3.0 Intake and Output 03/04/17 03/04/17 03/05/17 15:00 23:00 07:00 Intake Total 935.2 ml 935.2 ml 709.8 ml Output Total 560 ml 2230 ml 925 ml Balance 375.2 ml -1294.8 ml -215.2 ml Exam Constitutional: other (Sedated, intubated) Head: atraumatic, normocephalic Neck: non-tender, supple Respiratory: clear to auscultation, normal air movement Cardiovascular: nl pulses, regular rate and rhythm Gastrointestinal: nl liver, spleen, non-tender, soft Musculoskeletal: nl extremities to inspection Extremities: normal pulses Skin: nl turgor, No rash or lesions Lymph: nl lymph nodes Results Result Diagram: 03/05/17 0500 03/05/17 0500 Results 24 hrs Laboratory Tests Test 03/04/17 12:52 03/04/17 16:06 03/04/17 17:02 03/04/17 20:47 Bedside Glucose 92 107 102 Vancomycin Level Trough 8.7 L Test 03/05/17 01:05 03/05/17 05:00 03/05/17 08:31 Bedside Glucose 96 125 White Blood Count 13.8 #H Red Blood Count 3.05 L Hemoglobin 9.4 L Hematocrit 29.9 L Mean Corpuscular Volume 98.0 Mean Corpuscular Hemoglobin 30.8 Mean Corpuscular Hemoglobin Concent 31.4 L Red Cell Distribution Width 14.8 H Platelet Count 244 Mean Platelet Volume 10.9 H Sodium Level 145 H Potassium Level 3.3 L Chloride Level 111 H Carbon Dioxide Level 26 Anion Gap 11 Blood Urea Nitrogen 14 # Creatinine 0.82 Glucose Level 101 # Calcium Level 7.9 L Magnesium Level 1.7 Total Bilirubin 0.0 L Direct Bilirubin 0.00 Indirect Bilirubin 0.0 Aspartate Amino Transf (AST/SGOT) 16 Alanine Aminotransferase (ALT/SGPT) 36 Alkaline Phosphatase 115 Total Protein 5.5 L Albumin 2.8 L Globulin 2.70 Albumin/Globulin Ratio 1.03 Medications Medications Current Medications Acetaminophen 650 mg 650 mg Q4H PRN [place] PAIN LEVEL 1-3 OR FEVER; Start 03/02/17 at 00:30 Piperacillin Sod/ Tazobactam Sod (Zosyn 3.375gm/ 100 ml (Pmx)) 100 ml @ 200 mls /hr Q8 IVPB Last administered on 03/05/17 05:33; Admin Dose 200 MLS/HR; Start 03/02/17 at 00:30 Miscellaneous Information 1 ea NOTE XX ; Start 03/02/17 at 00:30 Glucose (Glutose) 15 gm Q15M PRN PO DECREASED GLUCOSE; Start 03/02/17 at 00:30 Glucose (Glutose) 22.5 gm Q15M PRN PO DECREASED GLUCOSE; Start 03/02/17 at 00: 30 Dextrose (D50w Syringe) 25 ml Q15M PRN IV DECREASED GLUCOSE; Start 03/02/17 at 00:30 Dextrose (D50w Syringe) 50 ml Q15M PRN IV DECREASED GLUCOSE; Start 03/02/17 at 00:30 Glucagon (Glucagen) 1 mg Q15M PRN IM DECREASED GLUCOSE; Start 03/02/17 at 00:30 Glucose 15 gm 15 gm Q15M PRN BUCCAL DECREASED GLUCOSE; Start 03/02/17 at 00:30 Norepinephrine 16 mg/Dextrose 500 ml @ 1.87 mls/hr TITRATE IV Last administered on 7/12/17at 02:23; Admin Dose 9.37 MLS/HR; Start 03/02/17 at 01:00 Fluconazole (Diflucan 200 Mg/ NS (Pmx)) 100 ml @ 100 mls/hr Q24H IVPB Last administered on 03/05/17 03:23; Admin Dose 100 MLS/HR; Start 03/02/17 at 04:00 Dextrose (D50w Syringe) 25 ml Q15M PRN IV Till BS 80 mg/dL or above x2; Start 03/02/17 at 04:30 Dextrose 50 ml 50 ml Q15M PRN IV Till BS 80 mg/dL or above x2; Start 03/02/17 at 04:30 Propofol (Diprivan) 100 ml @ 2.4 mls/hr Q12H IV Last administered on 07:40; Admin Dose 19.2 MLS/HR; Start 03/02/17 at 05:30 Aspirin 81 mg 81 mg DAILY NGT Last administered on 03/03/17 09:22; Admin Dose 81 MG; Start 03/03/17 at 09:00; Status Future Hold Dextrose (D5W) 1,000 ml @ 70 mls/hr [id number] IV Last administered on 03/04/17 21:43; Admin Dose 70 MLS/HR; Start 03/03/17 at 20:30 Pantoprazole (Protonix Iv) 40 mg BID@06,18 IV Last administered on 03/05/17 05 :32; Admin Dose 40 MG; Start 03/04/17 at 06:00 Amiodarone HCl (Cordarone) 200 mg DAILY NGT Last administered on 03/04/17 09: 17; Admin Dose 200 MG; Start 03/04/17 at 09:00 Furosemide (Lasix) 40 mg DAILY IV Last administered on 03/05/17 09:29; Admin Dose 40 MG; Start 03/04/17 at 16:30 Insulin Aspart NOVOLOG *MILD* ALGORI... Q6 SC ; Start 03/05/17 at 12:00 Vancomycin HCl/ Sodium Chloride (Vancocin/NS) 250 ml @ 83.333 mls/ hr Q24H IVPB ; Start 03/05/17 at 16:00 MONI MTZ MD Mar 05, 2017 11:01
[2017-03-05 11:17] LABS: EOSINOPHILS # 0.7 10^3/ul (0.0-0.5); LYMPHOCYTES # 1.7 10^3/ul (0.8-2.9); MONOCYTE # 0.7 10^3/ul (0.3-0.9); MYELOCYTES # 0.4; POLYCHROMASIA 1+
--- NOTE | 2017-03-05 11:20 | CONS ---
Date/Time of Note Date/Time of Note DATE: 03/05/17 TIME: 11:19 Consult Date/Type/Reason Admit Date/Time Mar 01, 2017 at 20:20 Initial Consult Date 03/02/17 Type of Consultation: Pulmonary Ordering Provider: MICHELLE MORENO Subjective Patient underwent EGD yesterday. Findings are noted. Continues PPI. Currently intubated and sedated on mechanical ventilation. Minimal secretions. Objective Vital Signs Date Time Temp Pulse Resp B/P Pulse Ox O2 Delivery O2 Flow Rate FiO2 03/05/17 10:00 68 20 105/44 97 Mechanical Ventilator 03/05/17 09:00 40 03/05/17 08:00 97.6 03/01/17 22:02 3.0 Intake and Output 03/04/17 03/04/17 03/05/17 15:00 23:00 07:00 Intake Total 935.2 ml 935.2 ml 799.0 ml Output Total 560 ml 2230 ml 925 ml Balance 375.2 ml -1294.8 ml -126.0 ml Exam PHYSICAL EXAMINATION GENERAL: Elderly lady intubated on mechanical ventilation appears comfortable at rest VITAL SIGNS: see below. HEENT: Pupils equal, round, and reactive to light. CARDIAC: S1, S2, 1/6 systolic ejection murmur CHEST: Diminished air entry bilaterally. ABDOMEN: Mildly distended. Bowel sounds present no guarding or rebound EXTREMITIES: No cyanosis, clubbing edema +1 NEUROLOGIC: Generalized weakness Results/Medications Result Diagram: 03/05/17 0500 03/05/17 0500 Results 24 hrs Laboratory Tests Test 03/04/17 12:52 03/04/17 16:06 03/04/17 17:02 03/04/17 20:47 Bedside Glucose 92 107 102 Vancomycin Level Trough 8.7 L Test 03/05/17 01:05 03/05/17 05:00 03/05/17 08:31 Bedside Glucose 96 125 White Blood Count 13.8 #H Red Blood Count 3.05 L Hemoglobin 9.4 L Hematocrit 29.9 L Mean Corpuscular Volume 98.0 Mean Corpuscular Hemoglobin 30.8 Mean Corpuscular Hemoglobin Concent 31.4 L Red Cell Distribution Width 14.8 H Platelet Count 244 Mean Platelet Volume 10.9 H Neutrophils % 65.0 Band Neutrophils % 8.0 H Lymphocytes % 12.0 L Monocytes % 5.0 Eosinophils % 5.0 Metamyelocytes % 2.0 H Myelocytes % 3.0 H Neutrophils # 9.0 H Lymphocytes # 1.7 Monocytes # 0.7 Eosinophils # 0.7 H Metamyelocytes # 0.3 Myelocytes # 0.4 Polychromasia 1+ Sodium Level 145 H Potassium Level 3.3 L Chloride Level 111 H Carbon Dioxide Level 26 Anion Gap 11 Blood Urea Nitrogen 14 # Creatinine 0.82 Glucose Level 101 # Calcium Level 7.9 L Magnesium Level 1.7 Total Bilirubin 0.0 L Direct Bilirubin 0.00 Indirect Bilirubin 0.0 Aspartate Amino Transf (AST/SGOT) 16 Alanine Aminotransferase (ALT/SGPT) 36 Alkaline Phosphatase 115 Total Protein 5.5 L Albumin 2.8 L Globulin 2.70 Albumin/Globulin Ratio 1.03 Medications Current Medications Acetaminophen 650 mg 650 mg Q4H PRN [place] PAIN LEVEL 1-3 OR FEVER; Start 03/02/17 at 00:30 Piperacillin Sod/ Tazobactam Sod (Zosyn 3.375gm/ 100 ml (Pmx)) 100 ml @ 200 mls /hr Q8 IVPB Last administered on 03/05/17 05:33; Admin Dose 200 MLS/HR; Start 03/02/17 at 00:30 Miscellaneous Information 1 ea NOTE XX ; Start 03/02/17 at 00:30 Glucose (Glutose) 15 gm Q15M PRN PO DECREASED GLUCOSE; Start 03/02/17 at 00:30 Glucose (Glutose) 22.5 gm Q15M PRN PO DECREASED GLUCOSE; Start 03/02/17 at 00: 30 Dextrose (D50w Syringe) 25 ml Q15M PRN IV DECREASED GLUCOSE; Start 03/02/17 at 00:30 Dextrose (D50w Syringe) 50 ml Q15M PRN IV DECREASED GLUCOSE; Start 03/02/17 at 00:30 Glucagon (Glucagen) 1 mg Q15M PRN IM DECREASED GLUCOSE; Start 03/02/17 at 00:30 Glucose 15 gm 15 gm Q15M PRN BUCCAL DECREASED GLUCOSE; Start 03/02/17 at 00:30 Norepinephrine 16 mg/Dextrose 500 ml @ 1.87 mls/hr TITRATE IV Last administered on 03/02/17 02:23; Admin Dose 9.37 MLS/HR; Start 03/02/17 at 01:00 Fluconazole (Diflucan 200 Mg/ NS (Pmx)) 100 ml @ 100 mls/hr Q24H IVPB Last administered on 03/05/17 03:23; Admin Dose 100 MLS/HR; Start 03/02/17 at 04:00 Dextrose (D50w Syringe) 25 ml Q15M PRN IV Till BS 80 mg/dL or above x2; Start 03/02/17 at 04:30 Dextrose 50 ml 50 ml Q15M PRN IV Till BS 80 mg/dL or above x2; Start 03/02/17 at 04:30 Propofol (Diprivan) 100 ml @ 2.4 mls/hr Q12H IV Last administered on 07:40; Admin Dose 19.2 MLS/HR; Start 03/02/17 at 05:30 Aspirin 81 mg 81 mg DAILY NGT Last administered on 03/03/17 09:22; Admin Dose 81 MG; Start 03/03/17 at 09:00; Status Future Hold Dextrose (D5W) 1,000 ml @ 70 mls/hr [id number] IV Last administered on 03/04/17 21:43; Admin Dose 70 MLS/HR; Start 03/03/17 at 20:30 Pantoprazole (Protonix Iv) 40 mg BID@06,18 IV Last administered on 03/05/17 05 :32; Admin Dose 40 MG; Start 03/04/17 at 06:00 Amiodarone HCl (Cordarone) 200 mg DAILY NGT Last administered on 03/04/17 09: 17; Admin Dose 200 MG; Start 03/04/17 at 09:00 Furosemide (Lasix) 40 mg DAILY IV Last administered on 03/05/17 09:29; Admin Dose 40 MG; Start 03/04/17 at 16:30 Insulin Aspart NOVOLOG *MILD* ALGORI... Q6 SC ; Start 03/05/17 at 12:00 Vancomycin HCl/ Sodium Chloride (Vancocin/NS) 250 ml @ 83.333 mls/ hr Q24H IVPB ; Start 03/05/17 at 16:00 Assessment/Plan Chief Complaint/Hosp Course Chief Complaint/Hosp Course 86-year-old lady presents with increasing shortness of breath orthopnea PND of 2 days duration. On admission she was noted to be markedly labored with subsequent obtunded respiratory status requiring emergent intubation and mechanical ventilation. She had central line placed for hypotension and is now been placed on vasopressors. In addition she has atrial fibrillation requiring initiation of Cardizem drip. More hemodynamically stable today, scheduled for endoscopy. 1. Hypoxemic and hypercapnic respiratory failure likely secondary to community- acquired pneumonia 2. Atrial fibrillation with rapid ventricular rate likely exacerbated by hypoxemia and cardiac ischemia 3. 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 Status post septic shock secondary to above 4. Erosive gastritis on EGD findings. Plan 1. Gentle diuresis. 2. Broad-spectrum antibiotic coverage pending cultures 3. Follow serial lactates 4. CPAP weaning trial 5. Continue insulin drip for hyperglycemia 6. Vasopressor support as needed 7. Endoscopy scheduled today Disposition Continue ICU care critical care time 40 minutes discussed with primary team and nursing staff Problems: MARY ALY MD, [facility] Mar 05, 2017 11:20
--- NOTE | 2017-03-05 12:57 | PN ---
Date/Time of Note Date/Time of Note DATE: 03/05/17 TIME: 12:56 Assessment/Plan VTE Prophylaxis VTE Prophylaxis Intervention: SCD's Lines/Catheters IV Catheter Type (from Nrsg): Central Line Central line still needed: Yes (recent pressors) Urinary Cath still in place: Yes Reason Cath still needed: other (indicate) (critically ill) Assessment/Plan Assessment/Plan 86 yo F admitted for acute hypoxic respiratory failure and sepsis: likely 2/2 CAP 1. acute respiratory failure: /Acute decompensation respiratory failure Likely secondary to underlying respiratory infection Continue mechanical ventilation at this time. pulmonology consulted, vent management as per pulmonology Continue IV antibiotics and breathing treatment 2. Severe sepsis: ID following Likely secondary to respiratory infection. Continue IV vancomycin and Zosyn. IV fluid hydration with normal saline. 3. Tachycardia: Likely secondary to #2 and #1. Status post Cardizem drip. cardiology following echocardiogram demonstrated normal ejection fraction. Amio converted from drip to PO plavix for CAD on hold for gastritis? 4. suspected fungal esophagitis: Continue IV fluconazole. (defer to ID) 5. diabetes mellitus: Continue insulin sliding scale. 6. History of essential hypertension: At the current time will hold home antihypertensive medication secondary to patient's hypotension. 7. Questionable GI bleed: sp EGD earlier today, +gastritis plavix on hold 8. DVT and GI prophylaxis: SCDs, Protonix Prognosis: Guarded Subjective 24 Hr Interval Summary Free Text/Dictation Intubated and sedated EGD this AM with gastritis/esophagitis Exam/Review of Systems Vital Signs Vitals Vital Signs Date Time Temp Pulse Resp B/P Pulse Ox O2 Delivery O2 Flow Rate FiO2 03/05/17 12:00 69 03/05/17 10:00 20 105/44 97 Mechanical Ventilator 03/05/17 09:00 40 03/05/17 08:00 97.6 03/01/17 22:02 3.0 Intake and Output 03/04/17 03/04/17 03/05/17 15:00 23:00 07:00 Intake Total 935.2 ml 935.2 ml 799.0 ml Output Total 560 ml 2230 ml 925 ml Balance 375.2 ml -1294.8 ml -126.0 ml Exam nad intubated and sedated breath sounds coarse no mrg abd soft no rashes Results Result Diagram: 03/05/17 0500 03/05/17 0500 Results 24 hrs Laboratory Tests Test 03/04/17 16:06 03/04/17 17:02 03/04/17 20:47 03/05/17 01:05 Vancomycin Level Trough 8.7 L Bedside Glucose 107 102 96 Test 03/05/17 05:00 03/05/17 08:31 White Blood Count 13.8 #H Red Blood Count 3.05 L Hemoglobin 9.4 L Hematocrit 29.9 L Mean Corpuscular Volume 98.0 Mean Corpuscular Hemoglobin 30.8 Mean Corpuscular Hemoglobin Concent 31.4 L Red Cell Distribution Width 14.8 H Platelet Count 244 Mean Platelet Volume 10.9 H Neutrophils % 65.0 Band Neutrophils % 8.0 H Lymphocytes % 12.0 L Monocytes % 5.0 Eosinophils % 5.0 Metamyelocytes % 2.0 H Myelocytes % 3.0 H Neutrophils # 9.0 H Lymphocytes # 1.7 Monocytes # 0.7 Eosinophils # 0.7 H Metamyelocytes # 0.3 Myelocytes # 0.4 Polychromasia 1+ Sodium Level 145 H Potassium Level 3.3 L Chloride Level 111 H Carbon Dioxide Level 26 Anion Gap 11 Blood Urea Nitrogen 14 # Creatinine 0.82 Glucose Level 101 # Calcium Level 7.9 L Magnesium Level 1.7 Total Bilirubin 0.0 L Direct Bilirubin 0.00 Indirect Bilirubin 0.0 Aspartate Amino Transf (AST/SGOT) 16 Alanine Aminotransferase (ALT/SGPT) 36 Alkaline Phosphatase 115 Total Protein 5.5 L Albumin 2.8 L Globulin 2.70 Albumin/Globulin Ratio 1.03 Bedside Glucose 125 Medications Medications Current Medications Acetaminophen 650 mg 650 mg Q4H PRN [place] PAIN LEVEL 1-3 OR FEVER; Start 03/02/17 at 00:30 Piperacillin Sod/ Tazobactam Sod (Zosyn 3.375gm/ 100 ml (Pmx)) 100 ml @ 200 mls /hr Q8 IVPB Last administered on 03/05/17t 05:33; Admin Dose 200 MLS/HR; Start 03/02/17 at 00:30 Miscellaneous Information 1 ea NOTE XX ; Start 03/02/17 at 00:30 Glucose (Glutose) 15 gm Q15M PRN PO DECREASED GLUCOSE; Start 03/02/17 at 00:30 Glucose (Glutose) 22.5 gm Q15M PRN PO DECREASED GLUCOSE; Start 03/02/17 at 00: 30 Dextrose (D50w Syringe) 25 ml Q15M PRN IV DECREASED GLUCOSE; Start 03/02/17 at 00:30 Dextrose (D50w Syringe) 50 ml Q15M PRN IV DECREASED GLUCOSE; Start 03/02/17 at 00:30 Glucagon (Glucagen) 1 mg Q15M PRN IM DECREASED GLUCOSE; Start 03/02/17 at 00:30 Glucose 15 gm 15 gm Q15M PRN BUCCAL DECREASED GLUCOSE; Start 03/02/17 at 00:30 Norepinephrine 16 mg/Dextrose 500 ml @ 1.87 mls/hr TITRATE IV Last administered on 03/02/17 02:23; Admin Dose 9.37 MLS/HR; Start 03/02/17 at 01:00 Fluconazole (Diflucan 200 Mg/ NS (Pmx)) 100 ml @ 100 mls/hr Q24H IVPB Last administered on 03/05/17 03:23; Admin Dose 100 MLS/HR; Start 03/02/17 at 04:00 Dextrose (D50w Syringe) 25 ml Q15M PRN IV Till BS 80 mg/dL or above x2; Start 03/02/17 at 04:30 Dextrose 50 ml 50 ml Q15M PRN IV Till BS 80 mg/dL or above x2; Start 03/02/17 at 04:30 Propofol (Diprivan) 100 ml @ 2.4 mls/hr Q12H IV Last administered on 07:40; Admin Dose 19.2 MLS/HR; Start 03/02/17 at 05:30 Aspirin 81 mg 81 mg DAILY NGT Last administered on 03/03/17 09:22; Admin Dose 81 MG; Start 03/03/17 at 09:00; Status Future Hold Dextrose (D5W) 1,000 ml @ 70 mls/hr [id number] IV Last administered on 03/04/17 21:43; Admin Dose 70 MLS/HR; Start 03/03/17 at 20:30 Pantoprazole (Protonix Iv) 40 mg BID@06,18 IV Last administered on 03/05/17 05 :32; Admin Dose 40 MG; Start 03/04/17 at 06:00 Amiodarone HCl (Cordarone) 200 mg DAILY NGT Last administered on 03/04/17 09: 17; Admin Dose 200 MG; Start 03/04/17 at 09:00 Furosemide (Lasix) 40 mg DAILY IV Last administered on 03/05/17 09:29; Admin Dose 40 MG; Start 03/04/17 at 16:30 Insulin Aspart NOVOLOG *MILD* ALGORI... Q6 SC ; Start 03/05/17 at 12:00 Vancomycin HCl/ Sodium Chloride (Vancocin/NS) 250 ml @ 83.333 mls/ hr Q24H IVPB ; Start 03/05/17 at 16:00 NICK BROWN MD Mar 05, 2017 12:57
[2017-03-05] MEDS: DEXTROSE 5% 1,000 ML IV SCH ×2 (14:24→22:14)
[2017-03-05] MEDS: VANCOMYCIN 1.5 GM in SOD CHLORIDE 0.9% 250 ML IVPB SCH (16:09)
[2017-03-05] MEDS ORDERED: MAGNESIUM SULFATE 1 GM/D5W 100 ML ONE (21:54)
[2017-03-05] MEDS ORDERED: MAGNESIUM SULFATE 1 GM/D5W 100 ML IVPB ONE (22:00)
[2017-03-05] MEDS: POTASSIUM CHLORIDE 250 ML IVPB SCH (22:15)
[2017-03-06] VITALS (39 sets, daily range): BP systolic 80–154; BP diastolic 35–68; PULSE 55–92; RESP 14–21
[2017-03-06] MEDS: INSULIN ASPART [NOVOLOG] 3 ML PEN SC SCH ×6 (00:33→21:26)
[2017-03-06] MEDS: POTASSIUM CHLORIDE 250 ML IVPB SCH (02:22)
[2017-03-06] MEDS: FLUCONAZOLE 200 MG/NS (PMX) 100 ML IVPB SCH (03:04)
[2017-03-06] MEDS: PROPOFOL 100 ML IV SCH ×5 (03:04→23:46)
[2017-03-06] MEDS: PANTOPRAZOLE 40 MG INJ IV SCH ×2 (05:32→18:25)
[2017-03-06] MEDS: PIPER-TAZO 3.375 GM IV (PMX) 100 ML IVPB SCH ×3 (05:32→21:28)
[2017-03-06 06:31] LABS: ABNORMAL IP MESSAGE 1; ADD SCAN DIFF NO; HEMATOCRIT 28.4 % (37.0-47.0); MEAN CORPUSCULAR HEMOGLOBIN 30.7 pg (29.0-33.0); MEAN CORPUSCULAR HGB CONC 31.7 g/dl (32.0-37.0); MEAN CORPUSCULAR VOLUME 96.9 fl (82.0-101.0); MEAN PLATELET VOLUME 10.9 fl (7.4-10.4); PLATELET COUNT 258 10^3/UL (140-415); RED BLOOD COUNT 2.93 10^6/ul (4.20-5.40); RED CELL DISTRIBUTION WIDTH 14.8 % (11.5-14.5); WHITE BLOOD COUNT 12.9 10^3/ul (4.8-10.8)
[2017-03-06] MEDS ORDERED: NORepinephrine 8MG/250 ML (PMX 250 ML ONE (06:33)
[2017-03-06] MEDS ORDERED: NORepinephrine 8MG/250 ML (PMX 250 ML IV SCH (07:00)
[2017-03-06 07:31] LABS: EOSINOPHILS # 0.3 10^3/ul (0.0-0.5); LYMPHOCYTES # 1.8 10^3/ul (0.8-2.9); MONOCYTE # 0.4 10^3/ul (0.3-0.9); MYELOCYTES # 0.5; NEUTROPHIL # 7.9 10^3/ul (1.6-7.5)
[2017-03-06 07:32] LABS: PLATELETS CLUMPS OCCASIONAL; TOXIC GRANULATION FEW
[2017-03-06 07:33] LABS: PLATELET ESTIMATE PLT APPEAR INCREASED
[2017-03-06 08:19] LABS: CALCIUM 8.1 mg/dl (8.4-10.2); CREATININE 0.71 mg/dl (0.44-1.00); POTASSIUM 4.3 mmol/L (3.5-5.1)
[2017-03-06] MEDS: FUROSEMIDE 40 MG INJ IV SCH ×2 (08:38→08:45)
[2017-03-06] MEDS: AMIODARONE 200 MG TAB NGT SCH (08:38)
--- NOTE | 2017-03-06 08:48 | PN ---
Date/Time of Note Date/Time of Note DATE: 03/06/17 TIME: 08:47 Assessment/Plan VTE Prophylaxis VTE Prophylaxis Intervention: SCD's Lines/Catheters IV Catheter Type (from Nrsg): Central Line Central line still needed: Yes (critically ill) Urinary Cath still in place: Yes Reason Cath still needed: other (indicate) (critcaily ill) Assessment/Plan Assessment/Plan 86 yo F with dementia admitted from facility for acute hypoxic respiratory failure and sepsis: likely 2/2 aspiration pneumonia 1. acute hypoxic respiratory failure: 2/2 aspiration pna pulmonology consulted, vent management as per pulmonology Continue IV antibiotics and breathing treatment 2. Severe sepsis: from aspiration pna, ID following Likely secondary to respiratory infection. Continue IV vancomycin and Zosyn. 3. Tachycardia: Likely secondary to #2 and #1. Status post Cardizem drip. HR <100 off amio. Stop amio. 4. suspected fungal esophagitis: Continue IV fluconazole. (defer to ID) 5. diabetes mellitus: Continue insulin sliding scale. resume basal insulin once pt taking PO again 6. History of essential hypertension: ARB on hold 7. Questionable GI bleed: sp EGD 7.15 , +gastritis 8. DVT and GI prophylaxis: SCDs, Protonix Stopping IV lasix as pt hypernatremic and with borderline BPs. Was not on lasix as outpatient and no e/o fluid overload. Code status: unfortunately pt with dementia and no advanced directive or family. Given aspiration most likely 2/2 dementia for which there is no cure, suspect aspiration will occur again. critical care time: 45 minutes Exam/Review of Systems Vital Signs Vitals Vital Signs Date Time Temp Pulse Resp B/P Pulse Ox O2 Delivery O2 Flow Rate FiO2 03/06/17 08:00 62 03/06/17 08:00 98.6 20 91/38 98 Mechanical Ventilator 03/05/17 20:00 45 Intake and Output 03/05/17 03/05/17 03/06/17 15:00 23:00 07:00 Intake Total 729.4 ml 865.600 ml 1324.4 ml Output Total 1803 ml 660 ml 825 ml Balance -1073.6 ml 205.600 ml 499.4 ml Results Result Diagram: 03/06/17 0615 03/06/17 0615 Results 24 hrs Laboratory Tests Test 03/05/17 13:09 03/05/17 17:44 03/06/17 00:30 03/06/17 04:35 Bedside Glucose 166 161 163 145 Test 03/06/17 06:15 03/06/17 08:37 White Blood Count 12.9 H Red Blood Count 2.93 L Hemoglobin 9.0 L Hematocrit 28.4 L Mean Corpuscular Volume 96.9 Mean Corpuscular Hemoglobin 30.7 Mean Corpuscular Hemoglobin Concent 31.7 L Red Cell Distribution Width 14.8 H Platelet Count 258 Mean Platelet Volume 10.9 H Neutrophils % 61.0 Band Neutrophils % 9.0 H Lymphocytes % 14.0 L Reactive Lymphocytes % 2.0 Monocytes % 3.0 Eosinophils % 2.0 Metamyelocytes % 2.0 H Myelocytes % 4.0 H Promyelocytes % 3.0 H Neutrophils # 7.9 H Lymphocytes # 1.8 Monocytes # 0.4 Eosinophils # 0.3 Metamyelocytes # 0.3 Myelocytes # 0.5 Promyelocytes # 0.4 Toxic Granulation FEW Platelet Estimate PLT APPEAR INCREASED Clumped Platelets OCCASIONAL Large Platelets FEW Giant Platelets OCCASIONAL Sodium Level 145 H Potassium Level 4.3 Chloride Level 108 Carbon Dioxide Level 26 Anion Gap 15 Blood Urea Nitrogen 10 Creatinine 0.71 Glucose Level 193 Calcium Level 8.1 L Bedside Glucose 168 Medications Medications Current Medications Acetaminophen 650 mg 650 mg Q4H PRN [place] PAIN LEVEL 1-3 OR FEVER; Start 03/02/17 at 00:30 Piperacillin Sod/ Tazobactam Sod (Zosyn 3.375gm/ 100 ml (Pmx)) 100 ml @ 200 mls /hr Q8 IVPB Last administered on 03/06/17t 05:32; Admin Dose 200 MLS/HR; Start 03/02/17 at 00:30 Miscellaneous Information 1 ea NOTE XX ; Start 03/02/17 at 00:30 Glucose (Glutose) 15 gm Q15M PRN PO DECREASED GLUCOSE; Start 03/02/17 at 00:30 Glucose (Glutose) 22.5 gm Q15M PRN PO DECREASED GLUCOSE; Start 03/02/17 at 00: 30 Dextrose (D50w Syringe) 25 ml Q15M PRN IV DECREASED GLUCOSE; Start 03/02/17 at 00:30 Dextrose (D50w Syringe) 50 ml Q15M PRN IV DECREASED GLUCOSE; Start 03/02/17 at 00:30 Glucagon (Glucagen) 1 mg Q15M PRN IM DECREASED GLUCOSE; Start 03/02/17 at 00:30 Glucose 15 gm 15 gm Q15M PRN BUCCAL DECREASED GLUCOSE; Start 03/02/17 at 00:30 Norepinephrine 16 mg/Dextrose 500 ml @ 1.87 mls/hr TITRATE IV Last administered on 03/02/17 02:23; Admin Dose 9.37 MLS/HR; Start 03/02/17 at 01:00 Fluconazole (Diflucan 200 Mg/ NS (Pmx)) 100 ml @ 100 mls/hr Q24H IVPB Last administered on 03/06/17 03:04; Admin Dose 100 MLS/HR; Start 03/02/17 at 04:00 Dextrose (D50w Syringe) 25 ml Q15M PRN IV Till BS 80 mg/dL or above x2; Start 03/02/17 at 04:30 Dextrose 50 ml 50 ml Q15M PRN IV Till BS 80 mg/dL or above x2; Start 03/02/17 at 04:30 Propofol (Diprivan) 100 ml @ 2.4 mls/hr Q12H IV Last administered on 07:48; Admin Dose 19.2 MLS/HR; Start 03/02/17 at 05:30 Aspirin 81 mg 81 mg DAILY NGT Last administered on 03/03/17 09:22; Admin Dose 81 MG; Start 03/03/17 at 09:00; Status Future Hold Dextrose (D5W) 1,000 ml @ 70 mls/hr [id number] IV Last administered on 03/05/17 22:14; Admin Dose 70 MLS/HR; Start 03/03/17 at 20:30 Pantoprazole (Protonix Iv) 40 mg BID@06,18 IV Last administered on 03/06/17 05 :32; Admin Dose 40 MG; Start 03/04/17 at 06:00 Amiodarone HCl (Cordarone) 200 mg DAILY NGT Last administered on 03/04/17 09: 17; Admin Dose 200 MG; Start 03/04/17 at 09:00 Furosemide 40 mg 40 mg DAILY IV Last administered on 03/05/17 09:29; Admin Dose 40 MG; Start 03/04/17 at 16:30 Vancomycin HCl/ Sodium Chloride (Vancocin/NS) 250 ml @ 83.333 mls/ hr Q24H IVPB Last administered on 03/05/17 16:09; Admin Dose 83.333 MLS/HR; Start at 16:00 Insulin Aspart NOVOLOG *MILD* ALGORI... Q4 SC Last administered on 03/06/17 08 :44; Admin Dose 1 UNIT; Start 03/06/17 at 05:00 Norepinephrine 250 ml @ 1.875 mls/ hr TITRATE IV Last administered on 06:41; Admin Dose 3.75 MLS/HR; Start 03/06/17 at 07:00 Norepinephrine/ Dextrose (Levophed/D5W) 500 ml @ 1.87 mls/hr TITRATE IV ; Start 03/06/17 at 07:00 NICK BROWN MD Mar 06, 2017 08:47
--- NOTE | 2017-03-06 09:37 | RADRPT ---
PROCEDURE: XR Chest 1 View. CLINICAL INDICATION: Shortness of breath. TECHNIQUE: AP view of the chest was obtained. COMPARISON: Yesterday. FINDINGS: The heart size is within normal limits. Calcified atherosclerosis is noted in the aorta. Endotrache al tube is stable and appears in grossly appropriate location. Left-sided central line is unchanged . Diffuse mild interstitial prominence in both lungs is to be identified. Scattered atelectasis is noted in the bilateral lower lobes. Blunting of the left costophrenic angle is observed. No conso lidations are identified. No pneumothorax is seen. Calcified granuloma is noted in the right upper lobe. Osseous structures are unchanged. IMPRESSION: Calcified atherosclerosis in the aorta. Stable diffuse mild interstitial prominence in both lungs. Interstitial prominence could be chronic . Interval blunting of the left costophrenic angle that could reflect small pleural effusion. Atelectasis in the bilateral lower lobes. Calcified granuloma in the right upper lobe. RPTAT: AA .Porfirio Jensen MD, MD Date Time Electronically viewed and signed by .Porfirio Jensen MD, MD on 03/06/2017 09:37 .P/
--- NOTE | 2017-03-06 10:07 | CONS ---
Date/Time of Note Date/Time of Note DATE: 03/06/17 TIME: 10:03 Consult Date/Type/Reason Admit Date/Time Mar 01, 2017 at 20:20 Initial Consult Date 03/02/17 Type of Consultation: Pulmonary Ordering Provider: MICHELLE MORENO Subjective Patient remains intubated on mechanical ventilation. Intermittent agitation. Tolerated only 30 minutes of CPAP trial yesterday. Currently off vasopressors. Objective Vital Signs Date Time Temp Pulse Resp B/P Pulse Ox O2 Delivery O2 Flow Rate FiO2 03/06/17 08:00 62 03/06/17 08:00 98.6 20 91/38 98 Mechanical Ventilator 03/05/17 20:00 45 Intake and Output 03/05/17 03/05/17 03/06/17 15:00 23:00 07:00 Intake Total 729.4 ml 865.600 ml 1324.4 ml Output Total 1803 ml 660 ml 825 ml Balance -1073.6 ml 205.600 ml 499.4 ml Exam PHYSICAL EXAMINATION GENERAL: Elderly lady intubated on mechanical ventilation appears comfortable at rest VITAL SIGNS: see below. HEENT: Pupils equal, round, and reactive to light. CARDIAC: S1, S2, 1/6 systolic ejection murmur CHEST: Diminished air entry bilaterally. ABDOMEN: Mildly distended. Bowel sounds present no guarding or rebound EXTREMITIES: No cyanosis, clubbing edema +1 NEUROLOGIC: Generalized weakness Results/Medications Result Diagram: 03/06/17 0615 03/06/17 0615 Results 24 hrs Chest x-ray Mild pulmonary edema Laboratory Tests Test 03/05/17 13:09 03/05/17 17:44 03/06/17 00:30 03/06/17 04:35 Bedside Glucose 166 161 163 145 Test 03/06/17 06:15 03/06/17 08:37 White Blood Count 12.9 H Red Blood Count 2.93 L Hemoglobin 9.0 L Hematocrit 28.4 L Mean Corpuscular Volume 96.9 Mean Corpuscular Hemoglobin 30.7 Mean Corpuscular Hemoglobin Concent 31.7 L Red Cell Distribution Width 14.8 H Platelet Count 258 Mean Platelet Volume 10.9 H Neutrophils % 61.0 Band Neutrophils % 9.0 H Lymphocytes % 14.0 L Reactive Lymphocytes % 2.0 Monocytes % 3.0 Eosinophils % 2.0 Metamyelocytes % 2.0 H Myelocytes % 4.0 H Promyelocytes % 3.0 H Neutrophils # 7.9 H Lymphocytes # 1.8 Monocytes # 0.4 Eosinophils # 0.3 Metamyelocytes # 0.3 Myelocytes # 0.5 Promyelocytes # 0.4 Toxic Granulation FEW Platelet Estimate PLT APPEAR INCREASED Clumped Platelets OCCASIONAL Large Platelets FEW Giant Platelets OCCASIONAL Sodium Level 145 H Potassium Level 4.3 Chloride Level 108 Carbon Dioxide Level 26 Anion Gap 15 Blood Urea Nitrogen 10 Creatinine 0.71 Glucose Level 193 Calcium Level 8.1 L Bedside Glucose 168 Medications Current Medications Acetaminophen 650 mg 650 mg Q4H PRN [place] PAIN LEVEL 1-3 OR FEVER; Start 03/02/17 at 00:30 Piperacillin Sod/ Tazobactam Sod (Zosyn 3.375gm/ 100 ml (Pmx)) 100 ml @ 200 mls /hr Q8 IVPB Last administered on 03/06/17 05:32; Admin Dose 200 MLS/HR; Start 03/02/17 at 00:30 Miscellaneous Information 1 ea NOTE XX ; Start 03/02/17 at 00:30 Glucose (Glutose) 15 gm Q15M PRN PO DECREASED GLUCOSE; Start 03/02/17 at 00:30 Glucose (Glutose) 22.5 gm Q15M PRN PO DECREASED GLUCOSE; Start 03/02/17 at 00: 30 Dextrose (D50w Syringe) 25 ml Q15M PRN IV DECREASED GLUCOSE; Start 03/02/17 at 00:30 Dextrose (D50w Syringe) 50 ml Q15M PRN IV DECREASED GLUCOSE; Start 03/02/17 at 00:30 Glucagon (Glucagen) 1 mg Q15M PRN IM DECREASED GLUCOSE; Start 03/02/17 at 00:30 Glucose 15 gm 15 gm Q15M PRN BUCCAL DECREASED GLUCOSE; Start 03/02/17 at 00:30 Fluconazole 100 ml @ 100 mls/hr Q24H IVPB Last administered on 03/06/17 03:04 ; Admin Dose 100 MLS/HR; Start 03/02/17 at 04:00 Propofol 100 ml @ 2.4 mls/hr Q12H IV Last administered on 03/06/17 07:48; Admin Dose 19.2 MLS/HR; Start 03/02/17 at 05:30 Dextrose (D5W) 1,000 ml @ 70 mls/hr [id number] IV Last administered on 03/05/17 22:14; Admin Dose 70 MLS/HR; Start 03/03/17 at 20:30 Pantoprazole 40 mg 40 mg BID@06,18 IV Last administered on 03/06/17 05:32; Admin Dose 40 MG; Start 03/04/17 at 06:00 Vancomycin HCl/ Sodium Chloride (Vancocin/NS) 250 ml @ 83.333 mls/ hr Q24H IVPB Last administered on 03/05/17 16:09; Admin Dose 83.333 MLS/HR; Start at 16:00 Insulin Aspart NOVOLOG *MILD* ALGORI... Q4 SC Last administered on 03/06/17 08 :44; Admin Dose 1 UNIT; Start 03/06/17 at 05:00 Norepinephrine/ Dextrose (Levophed/D5W) 500 ml @ 1.87 mls/hr TITRATE IV ; Start 03/06/17 at 07:00 Aspirin (Halfprin) 81 mg DAILY PO ; Start 03/07/17 at 09:00 Atorvastatin Calcium (Lipitor) 40 mg QHS PO ; Start 03/06/17 at 21:00 Diclofenac Sodium (Voltaren) 75 mg DAILY PO ; Start 03/07/17 at 09:00 Donepezil HCl (Aricept) 5 mg QHS PO ; Start 03/06/17 at 21:00 Assessment/Plan Chief Complaint/Hosp Course Chief Complaint/Hosp Course 86-year-old lady presents with increasing shortness of breath orthopnea PND of 2 days duration. On admission she was noted to be markedly labored with subsequent obtunded respiratory status requiring emergent intubation and mechanical ventilation. She had central line placed for hypotension and is now been placed on vasopressors. In addition she has atrial fibrillation requiring initiation of Cardizem drip. More hemodynamically stable today, scheduled for endoscopy. 1. Hypoxemic and hypercapnic respiratory failure likely secondary to community- acquired pneumonia 2. Atrial fibrillation with rapid ventricular rate likely exacerbated by hypoxemia and cardiac ischemia 3. 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 Status post septic shock secondary to above 4. Erosive gastritis on EGD findings. Nasogastric tube has been removed per GI recommendations Plan 1. Gentle diuresis as tolerated. 2. Broad-spectrum antibiotic coverage 3. Tube feeding on hold following removal of nasogastric tube 4. CPAP weaning trial 5. Continue insulin as needed. 6. Vasopressor support as needed Disposition Continue ICU care critical care time 40 minutes discussed with primary team and nursing staff Problems: M[facility] ALY MD, [facility] Mar 06, 2017 10:06
--- NOTE | 2017-03-06 11:55 | PN ---
Date/Time of Note Date/Time of Note DATE: 03/06/17 TIME: 11:50 Assessment/Plan VTE Prophylaxis VTE Prophylaxis Intervention: SCD's Lines/Catheters IV Catheter Type (from Nrs): Central Line Central line still needed: Yes Urinary Cath still in place: Yes Reason Cath still needed: urinary retention Assessment/Plan Assessment/Plan Assessment * Coffee ground emesis EGD 03/04/2017 Erosive esophagitis Erosive gastritis, NG tube trauma Nodular gastritis. Biopsies obtained * Sepsis * Acute respiratory failure managed by pulmonary Plan * Continue present regimen * Monitor hemoglobin and hematocrit, transfuse as necessary * Avoid NG tube due to significant trauma but if necessary may reinsert. Subjective 24 Hr Interval Summary Free Text/Dictation Course reviewed with nursing staff Failed ventilator weaning yesterday, will try again today No evidence of overt GI bleeding Continue to avoid NG tube if at all possible but if necessary may reinsert Exam/Review of Systems Vital Signs Vitals Vital Signs Date Time Temp Pulse Resp B/P Pulse Ox O2 Delivery O2 Flow Rate FiO2 03/06/17 11:00 57 20 98 03/06/17 11:00 110/59 Mechanical Ventilator 03/06/17 08:00 98.6 03/05/17 20:00 45 Intake and Output 03/05/17 03/05/17 03/06/17 15:00 23:00 07:00 Intake Total 729.4 ml 865.600 ml 1324.4 ml Output Total 1803 ml 660 ml 825 ml Balance -1073.6 ml 205.600 ml 499.4 ml Exam Constitutional: other (Sedated, intubated) Head: atraumatic, normocephalic Neck: non-tender, supple Respiratory: clear to auscultation, normal air movement Cardiovascular: nl pulses, regular rate and rhythm Gastrointestinal: nl liver, spleen, non-tender, soft Musculoskeletal: nl extremities to inspection Extremities: normal pulses Skin: nl turgor, No rash or lesions Lymph: nl lymph nodes Results Result Diagram: 03/06/1715 03/06/1715 Results 24 hrs Laboratory Tests Test 03/05/17 13:09 03/05/17 17:44 03/06/17 00:30 03/06/17 04:35 Bedside Glucose 166 161 163 145 Test 03/06/17 06:15 03/06/17 08:37 White Blood Count 12.9 H Red Blood Count 2.93 L Hemoglobin 9.0 L Hematocrit 28.4 L Mean Corpuscular Volume 96.9 Mean Corpuscular Hemoglobin 30.7 Mean Corpuscular Hemoglobin Concent 31.7 L Red Cell Distribution Width 14.8 H Platelet Count 258 Mean Platelet Volume 10.9 H Neutrophils % 61.0 Band Neutrophils % 9.0 H Lymphocytes % 14.0 L Reactive Lymphocytes % 2.0 Monocytes % 3.0 Eosinophils % 2.0 Metamyelocytes % 2.0 H Myelocytes % 4.0 H Promyelocytes % 3.0 H Neutrophils # 7.9 H Lymphocytes # 1.8 Monocytes # 0.4 Eosinophils # 0.3 Metamyelocytes # 0.3 Myelocytes # 0.5 Promyelocytes # 0.4 Toxic Granulation FEW Platelet Estimate PLT APPEAR INCREASED Clumped Platelets OCCASIONAL Large Platelets FEW Giant Platelets OCCASIONAL Sodium Level 145 H Potassium Level 4.3 Chloride Level 108 Carbon Dioxide Level 26 Anion Gap 15 Blood Urea Nitrogen 10 Creatinine 0.71 Glucose Level 193 Calcium Level 8.1 L Magnesium Level 1.8 Bedside Glucose 168 Medications Medications Current Medications Acetaminophen 650 mg 650 mg Q4H PRN [place] PAIN LEVEL 1-3 OR FEVER; Start 03/02/17 at 00:30 Piperacillin Sod/ Tazobactam Sod (Zosyn 3.375gm/ 100 ml (Pmx)) 100 ml @ 200 mls /hr Q8 IVPB Last administered on 03/06/17t 05:32; Admin Dose 200 MLS/HR; Start 03/02/17 at 00:30 Miscellaneous Information 1 ea NOTE XX ; Start 03/02/17 at 00:30 Glucose (Glutose) 15 gm Q15M PRN PO DECREASED GLUCOSE; Start 03/02/17 at 00:30 Glucose (Glutose) 22.5 gm Q15M PRN PO DECREASED GLUCOSE; Start 03/02/17 at 00: 30 Dextrose (D50w Syringe) 25 ml Q15M PRN IV DECREASED GLUCOSE; Start 03/02/17 at 00:30 Dextrose (D50w Syringe) 50 ml Q15M PRN IV DECREASED GLUCOSE; Start 03/02/17 at 00:30 Glucagon (Glucagen) 1 mg Q15M PRN IM DECREASED GLUCOSE; Start 03/02/17 at 00:30 Glucose 15 gm 15 gm Q15M PRN BUCCAL DECREASED GLUCOSE; Start 03/02/17 at 00:30 Fluconazole 100 ml @ 100 mls/hr Q24H IVPB Last administered on 03/06/17 03:04 ; Admin Dose 100 MLS/HR; Start 03/02/17 at 04:00 Propofol (Diprivan) 100 ml @ 2.4 mls/hr Q12H IV Last administered on 07:48; Admin Dose 19.2 MLS/HR; Start 03/02/17 at 05:30 Pantoprazole 40 mg 40 mg BID@06,18 IV Last administered on 03/06/17 05:32; Admin Dose 40 MG; Start 03/04/17 at 06:00 Vancomycin HCl/ Sodium Chloride (Vancocin/NS) 250 ml @ 83.333 mls/ hr Q24H IVPB Last administered on 03/05/17 16:09; Admin Dose 83.333 MLS/HR; Start at 16:00 Insulin Aspart NOVOLOG *MILD* ALGORI... Q4 SC Last administered on 03/06/17 08 :44; Admin Dose 1 UNIT; Start 03/06/17 at 05:00 Norepinephrine/ Dextrose (Levophed/D5W) 500 ml @ 1.87 mls/hr TITRATE IV ; Start 03/06/17 at 07:00 Aspirin (Halfprin) 81 mg DAILY PO ; Start 03/07/17 at 09:00 Atorvastatin Calcium (Lipitor) 40 mg QHS PO ; Start 03/06/17 at 21:00 Diclofenac Sodium (Voltaren) 75 mg DAILY PO ; Start 03/07/17 at 09:00 Donepezil HCl 5 mg 5 mg QHS PO ; Start 03/06/17 at 21:00 Magnesium Sulfate/ Sodium Chloride (Magnesium Sulfate/NS) 106 ml @ 35.333 mls/ hr ONCE ONCE IVPB ; Start 03/06/17 at 13:30; Stop 03/06/17 at 16:29 MONI MTZ MD Mar 06, 2017 11:54
--- NOTE | 2017-03-06 12:49 | CONS ---
Date/Time of Note Date/Time of Note DATE: 03/06/17 TIME: 12:46 Assessment/Plan Assessment/Plan Additional Assessment/Plan 1. P afib with RVR 2. acute hypoxemic respiratory failure: intubated now 3. + troponin: c.w NSTEMI due to demand ischemia due to above 4. DM and severely elevated glucose: controlled with insulin 5. dyslipidemia 6. pneumonia/ sepsis 7. shock : appear to be related to sepsis: currently still on levophed 8. hx memory impairment 9. anemia and GI bleed 10. Nonsustained atrial tachycardia -Patient with preserved ejection fraction, given episode of nonsustained atrial tachycardia, supplement magnesium to maintain above 2.0 maintain potassium above 4.0. Dr Oconnor to resume care 02/25/2017 Consultation Date/Type/Reason Admit Date/Time Mar 01, 2017 at 20:20 Initial Consult Date 03/04/17 Type of Consultation: cv Referring Provider: MICHELLE MORENO 24 HR Interval Summary Free Text/Dictation Patient seen and examined. Short run of nonsustained ventricular tachycardia noted on telemetry Exam/Review of Systems Vital Signs Vitals Vital Signs Date Time Temp Pulse Resp B/P Pulse Ox O2 Delivery O2 Flow Rate FiO2 03/06/17 12:00 45 03/06/17 12:00 66 03/06/17 11:00 20 98 03/06/17 11:00 110/59 Mechanical Ventilator 03/06/17 08:00 98.6 Intake and Output 03/05/17 03/05/17 03/06/17 15:00 23:00 07:00 Intake Total 729.4 ml 865.600 ml 1324.4 ml Output Total 1803 ml 660 ml 825 ml Balance -1073.6 ml 205.600 ml 499.4 ml Exam Sedated and intubated, no apparent distress Head: normocephalic ENMT: intubated Respiratory: other (Coarse breath sounds bilaterally, no wheezing) Cardiovascular: other (S1-S2 heard), regular rate and rhythm Gastrointestinal: bowel sounds, non-tender, soft Extremities: edema Results Result Diagram: 03/06/17 0615 03/06/17 0615 Results 24 hrs Laboratory Tests Test 03/05/17 13:09 03/05/17 17:44 03/06/17 00:30 03/06/17 04:35 Bedside Glucose 166 161 163 145 Test 03/06/17 06:15 03/06/17 08:37 White Blood Count 12.9 H Red Blood Count 2.93 L Hemoglobin 9.0 L Hematocrit 28.4 L Mean Corpuscular Volume 96.9 Mean Corpuscular Hemoglobin 30.7 Mean Corpuscular Hemoglobin Concent 31.7 L Red Cell Distribution Width 14.8 H Platelet Count 258 Mean Platelet Volume 10.9 H Neutrophils % 61.0 Band Neutrophils % 9.0 H Lymphocytes % 14.0 L Reactive Lymphocytes % 2.0 Monocytes % 3.0 Eosinophils % 2.0 Metamyelocytes % 2.0 H Myelocytes % 4.0 H Promyelocytes % 3.0 H Neutrophils # 7.9 H Lymphocytes # 1.8 Monocytes # 0.4 Eosinophils # 0.3 Metamyelocytes # 0.3 Myelocytes # 0.5 Promyelocytes # 0.4 Toxic Granulation FEW Platelet Estimate PLT APPEAR INCREASED Clumped Platelets OCCASIONAL Large Platelets FEW Giant Platelets OCCASIONAL Sodium Level 145 H Potassium Level 4.3 Chloride Level 108 Carbon Dioxide Level 26 Anion Gap 15 Blood Urea Nitrogen 10 Creatinine 0.71 Glucose Level 193 Calcium Level 8.1 L Magnesium Level 1.8 Bedside Glucose 168 Medications Medications Current Medications Acetaminophen 650 mg 650 mg Q4H PRN [place] PAIN LEVEL 1-3 OR FEVER; Start 03/02/17 at 00:30 Piperacillin Sod/ Tazobactam Sod (Zosyn 3.375gm/ 100 ml (Pmx)) 100 ml @ 200 mls /hr Q8 IVPB Last administered on 03/06/17t 05:32; Admin Dose 200 MLS/HR; Start 03/02/17 at 00:30 Miscellaneous Information 1 ea NOTE XX ; Start 03/02/17 at 00:30 Glucose (Glutose) 15 gm Q15M PRN PO DECREASED GLUCOSE; Start 03/02/17 at 00:30 Glucose (Glutose) 22.5 gm Q15M PRN PO DECREASED GLUCOSE; Start 03/02/17 at 00: 30 Dextrose (D50w Syringe) 25 ml Q15M PRN IV DECREASED GLUCOSE; Start 03/02/17 at 00:30 Dextrose (D50w Syringe) 50 ml Q15M PRN IV DECREASED GLUCOSE; Start 03/02/17 at 00:30 Glucagon (Glucagen) 1 mg Q15M PRN IM DECREASED GLUCOSE; Start 03/02/17 at 00:30 Glucose 15 gm 15 gm Q15M PRN BUCCAL DECREASED GLUCOSE; Start 03/02/17 at 00:30 Fluconazole 100 ml @ 100 mls/hr Q24H IVPB Last administered on 03/06/17 03:04 ; Admin Dose 100 MLS/HR; Start 03/02/17 at 04:00 Propofol (Diprivan) 100 ml @ 2.4 mls/hr Q12H IV Last administered on 07:48; Admin Dose 19.2 MLS/HR; Start 03/02/17 at 05:30 Pantoprazole 40 mg 40 mg BID@06,18 IV Last administered on 03/06/17 05:32; Admin Dose 40 MG; Start 03/04/17 at 06:00 Vancomycin HCl/ Sodium Chloride (Vancocin/NS) 250 ml @ 83.333 mls/ hr Q24H IVPB Last administered on 03/05/17 16:09; Admin Dose 83.333 MLS/HR; Start at 16:00 Insulin Aspart NOVOLOG *MILD* ALGORI... Q4 SC Last administered on 03/06/17 08 :44; Admin Dose 1 UNIT; Start 03/06/17 at 05:00 Norepinephrine/ Dextrose (Levophed/D5W) 500 ml @ 1.87 mls/hr TITRATE IV ; Start 03/06/17 at 07:00 Aspirin (Halfprin) 81 mg DAILY PO ; Start 03/07/17 at 09:00 Atorvastatin Calcium (Lipitor) 40 mg QHS PO ; Start 03/06/17 at 21:00 Diclofenac Sodium (Voltaren) 75 mg DAILY PO ; Start 03/07/17 at 09:00 Donepezil HCl 5 mg 5 mg QHS PO ; Start 03/06/17 at 21:00 Magnesium Sulfate/ Sodium Chloride (Magnesium Sulfate/NS) 106 ml @ 35.333 mls/ hr ONCE ONCE IVPB ; Start 03/06/17 at 13:30; Stop 03/06/17 at 16:29 Abilio Ohara DO Mar 06, 2017 12:48
[2017-03-06] MEDS ORDERED: MAGNESIUM SULFATE 3 GM in SOD CHLORIDE 0.9% 100 ML IVPB ONE (13:30)
[2017-03-06 16:31] LABS: AADO2 Arterial 137.9 mmHg (7.0-24.0); Allen Test ACCEPTAB; Arterial Base Excess -4.2 mmol/L (-3.0-3); Arterial COHb 0.3 % (0.0-3.0); Arterial MetHb 0.3 % (0.0-1.5); Arterial Total Hemglobin 12.2 g/dl (12.0-18.0); Blood Gas PS 10; MODE VENT - CPAP
--- NOTE | 2017-03-06 17:02 | CONS ---
Date/Time of Note Date/Time of Note DATE: 03/06/17 TIME: 17:01 Assessment/Plan Assessment/Plan Chief Complaint/Hosp Course ID PROGRESS NOTE TOTAL ABX DAY #5 => ZOSYN, Vanco IV, Diflucan 24H INTERVAL SUMMARY/HOSPITAL COURSE * Clinically stable, no fevers, WBC down today, noncommunicative on the Vent * POD#2 -> s/p 03/04/17 EGD for GIB * PER GI NOTE=> Postoperative Diagnosis Impression: Erosive esophagitis w/ Erosive fundal gastritis, related to NG tube trauma. Nodular gastritis. Biopsies obtained * BCx (-), urine = mixed contaminants PHYSICAL EXAMINATION: GENERAL: No fevers, VSS, NAD HEENT: ETT secure to Vent NECK: Trach midline, supple CHEST: Rise symmetrical w/course BS over vent tubing ABDOMEN: Soft, nondistended EXTREMITIES: Warm, dry, intact ID ASSESSMENT: 86 yo F s/PMHx mild dementia per memory impairment admit with: 1. Sepsis with shock and persistent leukocytosis==> RESOLVING * No fevers, WBC normalizing, off pressors, tachycardia resolved 2. Community-acquired pneumonia vs suspect ?ASPIRATION PNA ? * ASP PNA risk factors: Age, ?dementia, Esophagitis suspect GERD possible silent Aspiration syndrome ? 3. Acute respiratory failure, intubated 4. Upper GIB -> s/p EGD 03/04/17 revealed (+) Erosive esophagitis w/Erosive fundal gastritis, related to NG tube trauma. Nodular gastritis * Started on empiric Diflucan for concern esophagitis 5. Non-ST elevation OK in setting sepsis + GIB 6. Parosysmal Afib w/RVR => Amiodarone 7. HTN Heart Disease w/diastolic HF * 2D ECHO: Mild concentric LVH w/ EF ~55 %l Stage I diastolic dysfunction. 8. Diabetes (-) MRSA Nares screen INVASIVES: PIV, ETT, FC ABX ALLERGY: KNDA CURRENT ABX: TOTAL ABX DAY #5 => ZOSYN, Vanco IV, Diflucan ID PLAN: * Continue current ABX over the weekend * ID team will continue to monitor . Problems: Consultation Date/Type/Reason Admit Date/Time Mar 01, 2017 at 20:20 Initial Consult Date 03/04/17 Referring Provider: MICHELLE MORENO Exam/Review of Systems Vital Signs Vitals Vital Signs Date Time Temp Pulse Resp B/P Pulse Ox O2 Delivery O2 Flow Rate FiO2 03/06/17 16:00 92 03/06/17 15:00 20 97 03/06/17 14:00 118/46 Mechanical Ventilator 03/06/17 12:00 98.7 03/06/17 12:00 45 Intake and Output 03/05/17 03/05/17 03/06/17 15:00 23:00 07:00 Intake Total 729.4 ml 865.600 ml 1413.6 ml Output Total 1803 ml 660 ml 825 ml Balance -1073.6 ml 205.600 ml 588.6 ml Results Result Diagram: 03/06/1715 03/06/17 0615 Results 24 hrs Laboratory Tests Test 03/05/17 17:44 03/06/17 00:30 03/06/17 04:35 03/06/17 06:15 Bedside Glucose 161 163 145 White Blood Count 12.9 H Red Blood Count 2.93 L Hemoglobin 9.0 L Hematocrit 28.4 L Mean Corpuscular Volume 96.9 Mean Corpuscular Hemoglobin 30.7 Mean Corpuscular Hemoglobin Concent 31.7 L Red Cell Distribution Width 14.8 H Platelet Count 258 Mean Platelet Volume 10.9 H Neutrophils % 61.0 Band Neutrophils % 9.0 H Lymphocytes % 14.0 L Reactive Lymphocytes % 2.0 Monocytes % 3.0 Eosinophils % 2.0 Metamyelocytes % 2.0 H Myelocytes % 4.0 H Promyelocytes % 3.0 H Neutrophils # 7.9 H Lymphocytes # 1.8 Monocytes # 0.4 Eosinophils # 0.3 Metamyelocytes # 0.3 Myelocytes # 0.5 Promyelocytes # 0.4 Toxic Granulation FEW Platelet Estimate PLT APPEAR INCREASED Clumped Platelets OCCASIONAL Large Platelets FEW Giant Platelets OCCASIONAL Sodium Level 145 H Potassium Level 4.3 Chloride Level 108 Carbon Dioxide Level 26 Anion Gap 15 Blood Urea Nitrogen 10 Creatinine 0.71 Glucose Level 193 Calcium Level 8.1 L Magnesium Level 1.8 Test 03/06/17 08:37 03/06/17 13:21 03/06/17 16:00 Bedside Glucose 168 150 Blood Gas Specimen Source Blood arterial Arterial Blood Date Drawn 03/06/2017 4:15:56 PM Arterial Blood pH (Temp corrected) 7.230 *L Arterial Blood pCO2 (Temp correct) 58.6 H Arterial Blood pO2 (Temp corrected) 79.9 L Arterial Blood HCO3 24.0 Arterial Blood Base Excess -4.2 L Arterial Blood Oxygen Saturation 92.6 L Pablo Test ACCEPTAB Arterial Blood Gas Puncture Site Right Radial Arterial Blood Carboxyhemoglobin 0.3 Arterial Blood Methemoglobin 0.3 Blood Gas A-a O2 Differential 137.9 H Oxyhemoglobin Percent 92.0 L Total Hemoglobin 12.2 Blood Gas Temperature 37.0 Blood Gas Actual Respiration Rate 22 Blood Gas Modality VENT - CPAP FiO2 40.0 Blood Gas Low PEEP Setting 5.0 Blood Gas Pressure Support 10 Blood Gas Critical Value Read Back Enrrique MARTINEZ RN Blood Gas Notified Whom RDIX Blood Gas Notified Time 03/06/2017 4:31:17 PM Medications Medications Current Medications Acetaminophen 650 mg 650 mg Q4H PRN [place] PAIN LEVEL 1-3 OR FEVER; Start 03/02/17 at 00:30 Piperacillin Sod/ Tazobactam Sod (Zosyn 3.375gm/ 100 ml (Pmx)) 100 ml @ 200 mls /hr Q8 IVPB Last administered on 03/06/17 13:22; Admin Dose 200 MLS/HR; Start 03/02/17 at 00:30 Miscellaneous Information 1 ea NOTE XX ; Start 03/02/17 at 00:30 Glucose (Glutose) 15 gm Q15M PRN PO DECREASED GLUCOSE; Start 03/02/17 at 00:30 Glucose (Glutose) 22.5 gm Q15M PRN PO DECREASED GLUCOSE; Start 03/02/17 at 00: 30 Dextrose (D50w Syringe) 25 ml Q15M PRN IV DECREASED GLUCOSE; Start 03/02/17 at 00:30 Dextrose (D50w Syringe) 50 ml Q15M PRN IV DECREASED GLUCOSE; Start 03/02/17 at 00:30 Glucagon (Glucagen) 1 mg Q15M PRN IM DECREASED GLUCOSE; Start 03/02/17 at 00:30 Glucose 15 gm 15 gm Q15M PRN BUCCAL DECREASED GLUCOSE; Start 03/02/17 at 00:30 Fluconazole 100 ml @ 100 mls/hr Q24H IVPB Last administered on 03/06/17 03:04 ; Admin Dose 100 MLS/HR; Start 03/02/17 at 04:00 Propofol (Diprivan) 100 ml @ 2.4 mls/hr Q12H IV Last administered on 13:21; Admin Dose 19.2 MLS/HR; Start 03/02/17 at 05:30 Pantoprazole 40 mg 40 mg BID@06,18 IV Last administered on 03/06/17 05:32; Admin Dose 40 MG; Start 03/04/17 at 06:00 Vancomycin HCl/ Sodium Chloride (Vancocin/NS) 250 ml @ 83.333 mls/ hr Q24H IVPB Last administered on 03/05/17 16:09; Admin Dose 83.333 MLS/HR; Start at 16:00 Insulin Aspart NOVOLOG *MILD* ALGORI... Q4 SC Last administered on 03/06/17 13 :41; Admin Dose 1 UNIT; Start 03/06/17 at 05:00 Norepinephrine/ Dextrose (Levophed/D5W) 500 ml @ 1.87 mls/hr TITRATE IV ; Start 03/06/17 at 07:00 Aspirin (Halfprin) 81 mg DAILY PO ; Start 03/07/17 at 09:00 Atorvastatin Calcium (Lipitor) 40 mg QHS PO ; Start 03/06/17 at 21:00 Diclofenac Sodium (Voltaren) 75 mg DAILY PO ; Start 03/07/17 at 09:00 Donepezil HCl (Aricept) 5 mg QHS PO ; Start 03/06/17 at 21:00 SUZY ISABEL NP Mar 06, 2017 17:02
[2017-03-06] MEDS: VANCOMYCIN 1.5 GM in SOD CHLORIDE 0.9% 250 ML IVPB SCH (17:19)
[2017-03-06] MEDS: DONEPEZIL 5 MG TAB PO SCH (21:00)
[2017-03-06] MEDS: ATORVASTATIN 40 MG TAB PO SCH (21:00)
[2017-03-07] VITALS (34 sets, daily range): BP systolic 94–181; BP diastolic 39–89; PULSE 57–75; RESP 16–20
[2017-03-07] MEDS: INSULIN ASPART [NOVOLOG] 3 ML PEN SC SCH ×6 (01:00→21:08)
[2017-03-07] MEDS: FLUCONAZOLE 200 MG/NS (PMX) 100 ML IVPB SCH (04:28)
[2017-03-07] MEDS: PROPOFOL 100 ML IV SCH ×3 (04:48→16:47)
[2017-03-07 05:26] LABS: ADD SCAN DIFF NO
[2017-03-07 05:34] LABS: ABNORMAL IP MESSAGE 1; HEMATOCRIT 30.6 % (37.0-47.0); HEMOGLOBIN 9.6 g/dl (12.0-16.0); MEAN CORPUSCULAR HEMOGLOBIN 30.2 pg (29.0-33.0); MEAN CORPUSCULAR HGB CONC 31.4 g/dl (32.0-37.0); MEAN CORPUSCULAR VOLUME 96.2 fl (82.0-101.0); MEAN PLATELET VOLUME 11.1 fl (7.4-10.4); PLATELET COUNT 292 10^3/UL (140-415); RED BLOOD COUNT 3.18 10^6/ul (4.20-5.40); RED CELL DISTRIBUTION WIDTH 14.9 % (11.5-14.5); WHITE BLOOD COUNT 12.9 10^3/ul (4.8-10.8)
[2017-03-07 05:59] LABS: CALCIUM 8.5 mg/dl (8.4-10.2); CREATININE 0.71 mg/dl (0.44-1.00); PHOSPHORUS 3.6 mg/dl (2.5-4.9); POTASSIUM 3.6 mmol/L (3.5-5.1)
[2017-03-07] MEDS: PANTOPRAZOLE 40 MG INJ IV SCH ×2 (06:19→17:39)
[2017-03-07] MEDS: PIPER-TAZO 3.375 GM IV (PMX) 100 ML IVPB SCH ×3 (06:19→21:41)
--- NOTE | 2017-03-07 07:58 | RADRPT ---
PROCEDURE: XR Chest. CLINICAL INDICATION: Shortness of breath. TECHNIQUE: Single frontal view. COMPARISON: 03/06/2017. FINDINGS: The endotracheal tube and left subclavian vein catheter remain in satisfactory position. There is m ild atelectasis at the lung bases with left worse than right, unchanged. A benign calcified granulo ma is present in the right upper lobe. The lungs are otherwise clear. The heart size is normal. There is calcification in the aorta consistent with atherosclerosis. There is no pleural effusion. There is no pneumothorax. IMPRESSION: 1. No change from 03/06/2017. RPTAT: QQ .Flako Olvera MD, MD Date Time Electronically viewed and signed by .Flako Olvera MD, MD on 03/07/2017 07:58 .R/
[2017-03-07] MEDS: ASPIRIN (EC) 81 MG TAB PO SCH (08:41)
[2017-03-07] MEDS: DICLOFENAC (EC) 75 MG TAB PO SCH (08:42)
--- NOTE | 2017-03-07 09:41 | PN ---
Date/Time of Note Date/Time of Note DATE: 03/07/17 TIME: 09:27 Assessment/Plan VTE Prophylaxis VTE Prophylaxis Intervention: SCD's Lines/Catheters IV Catheter Type (from Nrs): Central Line Central line still needed: Yes Urinary Cath still in place: Yes Reason Cath still needed: urinary retention Assessment/Plan Chief Complaint/Hosp Course Assessment/Plan 86 yo F with dementia admitted from facility for acute hypoxic respiratory failure and sepsis: likely 2/2 aspiration pneumonia 1. acute hypoxic respiratory failure: 2/2 aspiration pna pulmonology consulted, vent management as per pulmonology - extubate when tolerable Continue IV antibiotics and breathing treatment, f/u pulm and ID rec's 2. Severe sepsis: from aspiration pna, ID following. Likely secondary to respiratory infection. Off pressors presently. Continue IV vancomycin and Zosyn. 3. Tachycardia: Likely secondary to #2 and #1, per CV team, possibly afib with RVR earlier, Status post Cardizem drip, now rate controlled. HR <100 off amio - monitor, f/u CV rec's 4. suspected fungal esophagitis: Continue IV fluconazole. (defer to ID) 5. diabetes mellitus: Continue insulin sliding scale. resume basal insulin once pt taking PO again 6. History of essential hypertension: ARB on hold 7. Questionable GI bleed: sp EGD 7.15 , +gastritis - f/u GI rec's, continue PPI IV - avoid NG tube for now unless absolutely necessary 8. DVT and GI prophylaxis: SCDs, Protonix 9. thyroid - 7.13 labs notable for hyperthyroid (TSH low, t4 high)-->consider post discharge fu with PCP 10. hypernatremia - mildly elevated (146) - monitor for now. Code status: unfortunately pt with dementia and no advanced directive or family. Given aspiration most likely 2/2 dementia for which there is no cure, suspect aspiration will occur again. Will also consult palliative team today. critical care time: 50 minutes Problems: Subjective 24 Hr Interval Summary Free Text/Dictation Pt still intubated. On abx. Exam/Review of Systems Vital Signs Vitals Vital Signs Date Time Temp Pulse Resp B/P Pulse Ox O2 Delivery O2 Flow Rate FiO2 03/07/17 09:00 63 20 161/53 100 Mechanical Ventilator 03/07/17 08:00 98.2 03/07/17 08:00 30 Intake and Output 03/06/17 03/06/17 03/07/17 15:00 23:00 07:00 Intake Total 483.95 ml 272.600 ml 110.4 ml Output Total 495 ml 575 ml 500 ml Balance -11.05 ml -302.400 ml -389.6 ml Exam GENERAL: Elderly lady intubated on mechanical ventilation appears comfortable at rest HEENT: Pupils equal, round, and reactive to light. CARDIAC: S1, S2, 1/6 systolic ejection murmur CHEST: some diminished air entry bilaterally. ABDOMEN: Mildly distended. Bowel sounds present no guarding or rebound EXTREMITIES: No cyanosis, clubbing edema +1 NEUROLOGIC: Generalized weakness+ Results Result Diagram: 03/07/17 0430 03/07/17 0430 Results 24 hrs Laboratory Tests Test 03/06/17 13:21 03/06/17 16:00 03/06/17 17:17 03/06/17 21:22 Bedside Glucose 150 149 143 Blood Gas Specimen Source Blood arterial Arterial Blood Date Drawn 03/06/2017 4:15:56 PM Arterial Blood pH (Temp corrected) 7.230 *L Arterial Blood pCO2 (Temp correct) 58.6 H Arterial Blood pO2 (Temp corrected) 79.9 L Arterial Blood HCO3 24.0 Arterial Blood Base Excess -4.2 L Arterial Blood Oxygen Saturation 92.6 L Pablo Test ACCEPTAB Arterial Blood Gas Puncture Site Right Radial Arterial Blood Carboxyhemoglobin 0.3 Arterial Blood Methemoglobin 0.3 Blood Gas A-a O2 Differential 137.9 H Oxyhemoglobin Percent 92.0 L Total Hemoglobin 12.2 Blood Gas Temperature 37.0 Blood Gas Actual Respiration Rate 22 Blood Gas Modality VENT - CPAP FiO2 40.0 Blood Gas Low PEEP Setting 5.0 Blood Gas Pressure Support 10 Blood Gas Critical Value Read Back Enrrique MARTINEZ RN Blood Gas Notified Whom RDIX Blood Gas Notified Time 03/06/2017 4:31:17 PM Test 03/07/17 01:06 03/07/17 04:30 03/07/17 04:52 03/07/17 08:33 Bedside Glucose 125 113 135 White Blood Count 12.9 H Red Blood Count 3.18 L Hemoglobin 9.6 L Hematocrit 30.6 L Mean Corpuscular Volume 96.2 Mean Corpuscular Hemoglobin 30.2 Mean Corpuscular Hemoglobin Concent 31.4 L Red Cell Distribution Width 14.9 H Platelet Count 292 Mean Platelet Volume 11.1 H Neutrophils % Eosinophils % Neutrophils # Eosinophils # Sodium Level 146 H Potassium Level 3.6 Chloride Level 111 H Carbon Dioxide Level 25 Anion Gap 14 Blood Urea Nitrogen 8 Creatinine 0.71 Glucose Level 120 # Calcium Level 8.5 Phosphorus Level 3.6 Magnesium Level 2.0 Medications Medications Current Medications Acetaminophen 650 mg 650 mg Q4H PRN [place] PAIN LEVEL 1-3 OR FEVER; Start 03/02/17 at 00:30 Piperacillin Sod/ Tazobactam Sod (Zosyn 3.375gm/ 100 ml (Pmx)) 100 ml @ 200 mls /hr Q8 IVPB Last administered on 03/07/17 06:19; Admin Dose 200 MLS/HR; Start 03/02/17 at 00:30 Miscellaneous Information 1 ea NOTE XX ; Start 03/02/17 at 00:30 Glucose (Glutose) 15 gm Q15M PRN PO DECREASED GLUCOSE; Start 03/02/17 at 00:30 Glucose (Glutose) 22.5 gm Q15M PRN PO DECREASED GLUCOSE; Start 03/02/17 at 00: 30 Dextrose (D50w Syringe) 25 ml Q15M PRN IV DECREASED GLUCOSE; Start 03/02/17 at 00:30 Dextrose (D50w Syringe) 50 ml Q15M PRN IV DECREASED GLUCOSE; Start 03/02/17 at 00:30 Glucagon (Glucagen) 1 mg Q15M PRN IM DECREASED GLUCOSE; Start 03/02/17 at 00:30 Glucose 15 gm 15 gm Q15M PRN BUCCAL DECREASED GLUCOSE; Start 03/02/17 at 00:30 Fluconazole 100 ml @ 100 mls/hr Q24H IVPB Last administered on 03/07/17 04:28 ; Admin Dose 100 MLS/HR; Start 03/02/17 at 04:00 Propofol (Diprivan) 100 ml @ 2.4 mls/hr Q12H IV Last administered on 04:48; Admin Dose 19.2 MLS/HR; Start 03/02/17 at 05:30 Pantoprazole 40 mg 40 mg BID@06,18 IV Last administered on 03/07/17 06:19; Admin Dose 40 MG; Start 03/04/17 at 06:00 Vancomycin HCl/ Sodium Chloride (Vancocin/NS) 250 ml @ 83.333 mls/ hr Q24H IVPB Last administered on 03/06/17 17:19; Admin Dose 83.333 MLS/HR; Start at 16:00 Insulin Aspart NOVOLOG *MILD* ALGORI... Q4 SC Last administered on 03/06/17 21 :26; Admin Dose 1 UNIT; Start 03/06/17 at 05:00 Norepinephrine/ Dextrose (Levophed/D5W) 500 ml @ 1.87 mls/hr TITRATE IV ; Start 03/06/17 at 07:00 Aspirin (Halfprin) 81 mg DAILY PO ; Start 03/07/17 at 09:00 Atorvastatin Calcium (Lipitor) 40 mg QHS PO ; Start 03/06/17 at 21:00 Diclofenac Sodium (Voltaren) 75 mg DAILY PO ; Start 03/07/17 at 09:00 Donepezil HCl (Aricept) 5 mg QHS PO ; Start 03/06/17 at 21:00 FERNANDO DIMAS Mar 07, 2017 09:37
[2017-03-07 10:15] LABS: BASOPHIL # 0.1 10^3/ul (0.0-0.1); BURR CELLS 1+; EOSINOPHILS # 0.5 10^3/ul (0.0-0.5); LYMPHOCYTES # 2.2 10^3/ul (0.8-2.9); MONOCYTE # 0.5 10^3/ul (0.3-0.9); MYELOCYTES # 0.4; NEUTROPHIL # 8.8 10^3/ul (1.6-7.5)
--- NOTE | 2017-03-07 11:15 | CONS ---
Date/Time of Note Date/Time of Note DATE: 03/07/17 TIME: 11:12 Consult Date/Type/Reason Admit Date/Time Mar 01, 2017 at 20:20 Initial Consult Date 03/02/17 Type of Consultation: Pulmonary ICU Ordering Provider: MICHELLE MORENO Subjective Patient remains intubated sedated on mechanical ventilation, she failed CPAP weaning trial this morning. Off sedation she is not following commands consistently. Remains agitated. Currently not requiring vasopressor support. Objective Vital Signs Date Time Temp Pulse Resp B/P Pulse Ox O2 Delivery O2 Flow Rate FiO2 03/07/17 09:00 63 20 161/53 100 Mechanical Ventilator 03/07/17 08:46 30 03/07/17 08:00 98.2 Intake and Output 03/06/17 03/06/17 03/07/17 15:00 23:00 07:00 Intake Total 483.95 ml 272.600 ml 110.4 ml Output Total 495 ml 575 ml 500 ml Balance -11.05 ml -302.400 ml -389.6 ml Exam PHYSICAL EXAMINATION GENERAL: Elderly lady intubated on mechanical ventilation appears comfortable at rest VITAL SIGNS: see below. HEENT: Pupils equal, round, and reactive to light. CARDIAC: S1, S2, 1/6 systolic ejection murmur CHEST: Diminished air entry bilaterally. ABDOMEN: Mildly distended. Bowel sounds present no guarding or rebound EXTREMITIES: No cyanosis, clubbing edema +1 NEUROLOGIC: Generalized weakness Results/Medications Result Diagram: 03/07/17 0430 03/07/17 0430 Results 24 hrs Laboratory Tests Test 03/06/17 13:21 03/06/17 16:00 03/06/17 17:17 03/06/17 21:22 Bedside Glucose 150 149 143 Blood Gas Specimen Source Blood arterial Arterial Blood Date Drawn 03/06/2017 4:15:56 PM Arterial Blood pH (Temp corrected) 7.230 *L Arterial Blood pCO2 (Temp correct) 58.6 H Arterial Blood pO2 (Temp corrected) 79.9 L Arterial Blood HCO3 24.0 Arterial Blood Base Excess -4.2 L Arterial Blood Oxygen Saturation 92.6 L Pablo Test ACCEPTAB Arterial Blood Gas Puncture Site Right Radial Arterial Blood Carboxyhemoglobin 0.3 Arterial Blood Methemoglobin 0.3 Blood Gas A-a O2 Differential 137.9 H Oxyhemoglobin Percent 92.0 L Total Hemoglobin 12.2 Blood Gas Temperature 37.0 Blood Gas Actual Respiration Rate 22 Blood Gas Modality VENT - CPAP FiO2 40.0 Blood Gas Low PEEP Setting 5.0 Blood Gas Pressure Support 10 Blood Gas Critical Value Read Back Enrrique MARTINEZ RN Blood Gas Notified Whom RDIX Blood Gas Notified Time 03/06/2017 4:31:17 PM Test 03/07/17 01:06 03/07/17 04:30 03/07/17 04:52 03/07/17 08:33 Bedside Glucose 125 113 135 White Blood Count 12.9 H Red Blood Count 3.18 L Hemoglobin 9.6 L Hematocrit 30.6 L Mean Corpuscular Volume 96.2 Mean Corpuscular Hemoglobin 30.2 Mean Corpuscular Hemoglobin Concent 31.4 L Red Cell Distribution Width 14.9 H Platelet Count 292 Mean Platelet Volume 11.1 H Neutrophils % 68.0 Band Neutrophils % 2.0 Lymphocytes % 17.0 Monocytes % 4.0 Eosinophils % 4.0 Basophils % 1.0 Metamyelocytes % 1.0 H Myelocytes % 3.0 H Neutrophils # 8.8 H Lymphocytes # 2.2 Monocytes # 0.5 Eosinophils # 0.5 Basophils # 0.1 Metamyelocytes # 0.1 Myelocytes # 0.4 Sodium Level 146 H Potassium Level 3.6 Chloride Level 111 H Carbon Dioxide Level 25 Anion Gap 14 Blood Urea Nitrogen 8 Creatinine 0.71 Glucose Level 120 # Calcium Level 8.5 Phosphorus Level 3.6 Magnesium Level 2.0 Medications Current Medications Acetaminophen 650 mg 650 mg Q4H PRN [place] PAIN LEVEL 1-3 OR FEVER; Start 03/02/17 at 00:30 Piperacillin Sod/ Tazobactam Sod (Zosyn 3.375gm/ 100 ml (Pmx)) 100 ml @ 200 mls /hr Q8 IVPB Last administered on 03/07/17t 06:19; Admin Dose 200 MLS/HR; Start 03/02/17 at 00:30 Miscellaneous Information 1 ea NOTE XX ; Start 03/02/17 at 00:30 Glucose (Glutose) 15 gm Q15M PRN PO DECREASED GLUCOSE; Start 03/02/17 at 00:30 Glucose (Glutose) 22.5 gm Q15M PRN PO DECREASED GLUCOSE; Start 03/02/17 at 00: 30 Dextrose (D50w Syringe) 25 ml Q15M PRN IV DECREASED GLUCOSE; Start 03/02/17 at 00:30 Dextrose (D50w Syringe) 50 ml Q15M PRN IV DECREASED GLUCOSE; Start 03/02/17 at 00:30 Glucagon (Glucagen) 1 mg Q15M PRN IM DECREASED GLUCOSE; Start 03/02/17 at 00:30 Glucose 15 gm 15 gm Q15M PRN BUCCAL DECREASED GLUCOSE; Start 03/02/17 at 00:30 Fluconazole 100 ml @ 100 mls/hr Q24H IVPB Last administered on 03/07/17 04:28 ; Admin Dose 100 MLS/HR; Start 03/02/17 at 04:00 Propofol (Diprivan) 100 ml @ 2.4 mls/hr Q12H IV Last administered on 10:37; Admin Dose 19.2 MLS/HR; Start 03/02/17 at 05:30 Pantoprazole 40 mg 40 mg BID@06,18 IV Last administered on 03/07/17 06:19; Admin Dose 40 MG; Start 03/04/17 at 06:00 Vancomycin HCl/ Sodium Chloride (Vancocin/NS) 250 ml @ 83.333 mls/ hr Q24H IVPB Last administered on 03/06/17 17:19; Admin Dose 83.333 MLS/HR; Start at 16:00 Insulin Aspart NOVOLOG *MILD* ALGORI... Q4 SC Last administered on 03/06/17 21 :26; Admin Dose 1 UNIT; Start 03/06/17 at 05:00 Norepinephrine/ Dextrose (Levophed/D5W) 500 ml @ 1.87 mls/hr TITRATE IV ; Start 03/06/17 at 07:00 Aspirin (Halfprin) 81 mg DAILY PO ; Start 03/07/17 at 09:00 Atorvastatin Calcium (Lipitor) 40 mg QHS PO ; Start 03/06/17 at 21:00 Diclofenac Sodium (Voltaren) 75 mg DAILY PO ; Start 03/07/17 at 09:00 Donepezil HCl (Aricept) 5 mg QHS PO ; Start 03/06/17 at 21:00 Hydralazine HCl (Apresoline) 10 mg Q6H PRN IV ELEVATED BLOOD PRESSURE; Start at 09:30 Assessment/Plan Chief Complaint/Hosp Course Chief Complaint/Hosp Course 86-year-old lady presents with increasing shortness of breath orthopnea PND of 2 days duration. On admission she was noted to be markedly labored with subsequent obtunded respiratory status requiring emergent intubation and mechanical ventilation. She had central line placed for hypotension and is now been placed on vasopressors. In addition she has atrial fibrillation requiring initiation of Cardizem drip. More hemodynamically stable today, scheduled for endoscopy. 1. Hypoxemic and hypercapnic respiratory failure likely secondary to community- acquired pneumonia 2. Atrial fibrillation with rapid ventricular rate likely exacerbated by hypoxemia and cardiac ischemia 3. 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 Status post septic shock secondary to above 4. Erosive gastritis on EGD findings. Nasogastric tube has been removed per GI recommendations 6. Delirium. Possible toxic metabolic. Plan 1. Gentle diuresis as tolerated. 2. Broad-spectrum antibiotic coverage 3. Tube feeding on hold following removal of nasogastric tube 4. CPAP weaning trial as tolerated. Currently failing. 5. Continue insulin as needed. 6. Vasopressor support as needed 7. Trial of Precedex. Disposition Continue ICU care critical care time 40 minutes discussed with primary team and nursing staff Family conference regarding goals of care. Problems: MARY ALY MD, [facility] Mar 07, 2017 11:15
--- NOTE | 2017-03-07 11:35 | CONS ---
Date/Time of Note Date/Time of Note DATE: 03/07/17 TIME: 11:32 Assessment/Plan Assessment/Plan Chief Complaint/Hosp Course No acute changes overnight. Patient is awake restless, on 40 mics of propofol drip, intubated Temperature 98.2 pulse 66 respirations 20 blood pressure 143/52 saturation 100 on 30 FiO2 WBC 12.9 H&H 9.63.6 platelets 292 neutrophils 68 bands stool is 17 BN 8 creatinine 0.71 Indwelling: Endotracheal tube NG tube Pierce catheter, left subclavian triple- lumen catheter Chest x-ray this morning revealed no change from yesterday still mild atelectasis at the lung bases left worse than the right Antibiotics: Vancomycin, fluconazole, Zosyn Physical examination: Chronically ill-appearing elderly woman who is intubated in no distress. Head atraumatic normocephalic sclera nonicteric bugle mucosa dry. Neck is supple, trachea midline. Chest rise symmetrical breath sounds diminished basis. S1-S2. Abdomen soft bowel tones hypoactive. Extremities with trace edema. Assessment: 1. Status post septic shock 2. Pneumonia 3. Acute respiratory failure 4. Diabetes 5. Non-ST elevation [place] Plan: Remains hemodynamically stable,, on antibiotics day #7, continue present care, vent management per pulmonary, follow cardiology recommendations Discussed with RN Problems: Consultation Date/Type/Reason Admit Date/Time Mar 01, 2017 at 20:20 Initial Consult Date 03/02/17 Type of Consultation: ID Referring Provider: IMCHELLE MORENO Exam/Review of Systems Vital Signs Vitals Vital Signs Date Time Temp Pulse Resp B/P Pulse Ox O2 Delivery O2 Flow Rate FiO2 03/07/17 09:00 63 20 161/53 100 Mechanical Ventilator 03/07/17 08:46 30 03/07/17 08:00 98.2 Intake and Output 03/06/17 03/06/17 03/07/17 15:00 23:00 07:00 Intake Total 483.95 ml 272.600 ml 110.4 ml Output Total 495 ml 575 ml 500 ml Balance -11.05 ml -302.400 ml -389.6 ml Results Result Diagram: 03/07/17 0430 03/07/17 0430 Results 24 hrs Laboratory Tests Test 03/06/17 13:21 03/06/17 16:00 03/06/17 17:17 03/06/17 21:22 Bedside Glucose 150 149 143 Blood Gas Specimen Source Blood arterial Arterial Blood Date Drawn 03/06/2017 4:15:56 PM Arterial Blood pH (Temp corrected) 7.230 *L Arterial Blood pCO2 (Temp correct) 58.6 H Arterial Blood pO2 (Temp corrected) 79.9 L Arterial Blood HCO3 24.0 Arterial Blood Base Excess -4.2 L Arterial Blood Oxygen Saturation 92.6 L Pablo Test ACCEPTAB Arterial Blood Gas Puncture Site Right Radial Arterial Blood Carboxyhemoglobin 0.3 Arterial Blood Methemoglobin 0.3 Blood Gas A-a O2 Differential 137.9 H Oxyhemoglobin Percent 92.0 L Total Hemoglobin 12.2 Blood Gas Temperature 37.0 Blood Gas Actual Respiration Rate 22 Blood Gas Modality VENT - CPAP FiO2 40.0 Blood Gas Low PEEP Setting 5.0 Blood Gas Pressure Support 10 Blood Gas Critical Value Read Back LPhilip MARTINEZ RN Blood Gas Notified Whom RDIX Blood Gas Notified Time 03/06/2017 4:31:17 PM Test 03/07/17 01:06 03/07/17 04:30 03/07/17 04:52 03/07/17 08:33 Bedside Glucose 125 113 135 White Blood Count 12.9 H Red Blood Count 3.18 L Hemoglobin 9.6 L Hematocrit 30.6 L Mean Corpuscular Volume 96.2 Mean Corpuscular Hemoglobin 30.2 Mean Corpuscular Hemoglobin Concent 31.4 L Red Cell Distribution Width 14.9 H Platelet Count 292 Mean Platelet Volume 11.1 H Neutrophils % 68.0 Band Neutrophils % 2.0 Lymphocytes % 17.0 Monocytes % 4.0 Eosinophils % 4.0 Basophils % 1.0 Metamyelocytes % 1.0 H Myelocytes % 3.0 H Neutrophils # 8.8 H Lymphocytes # 2.2 Monocytes # 0.5 Eosinophils # 0.5 Basophils # 0.1 Metamyelocytes # 0.1 Myelocytes # 0.4 Sodium Level 146 H Potassium Level 3.6 Chloride Level 111 H Carbon Dioxide Level 25 Anion Gap 14 Blood Urea Nitrogen 8 Creatinine 0.71 Glucose Level 120 # Calcium Level 8.5 Phosphorus Level 3.6 Magnesium Level 2.0 Medications Medications Current Medications Acetaminophen 650 mg 650 mg Q4H PRN [place] PAIN LEVEL 1-3 OR FEVER; Start 03/02/17 at 00:30 Piperacillin Sod/ Tazobactam Sod (Zosyn 3.375gm/ 100 ml (Pmx)) 100 ml @ 200 mls /hr Q8 IVPB Last administered on 03/07/17 06:19; Admin Dose 200 MLS/HR; Start 03/02/17 at 00:30 Miscellaneous Information 1 ea NOTE XX ; Start 03/02/17 at 00:30 Glucose (Glutose) 15 gm Q15M PRN PO DECREASED GLUCOSE; Start 03/02/17 at 00:30 Glucose (Glutose) 22.5 gm Q15M PRN PO DECREASED GLUCOSE; Start 03/02/17 at 00: 30 Dextrose (D50w Syringe) 25 ml Q15M PRN IV DECREASED GLUCOSE; Start 03/02/17 at 00:30 Dextrose (D50w Syringe) 50 ml Q15M PRN IV DECREASED GLUCOSE; Start 03/02/17 at 00:30 Glucagon (Glucagen) 1 mg Q15M PRN IM DECREASED GLUCOSE; Start 03/02/17 at 00:30 Glucose 15 gm 15 gm Q15M PRN BUCCAL DECREASED GLUCOSE; Start 03/02/17 at 00:30 Fluconazole 100 ml @ 100 mls/hr Q24H IVPB Last administered on 03/07/17 04:28 ; Admin Dose 100 MLS/HR; Start 03/02/17 at 04:00 Propofol (Diprivan) 100 ml @ 2.4 mls/hr Q12H IV Last administered on 10:37; Admin Dose 19.2 MLS/HR; Start 03/02/17 at 05:30 Pantoprazole 40 mg 40 mg BID@06,18 IV Last administered on 03/07/17 06:19; Admin Dose 40 MG; Start 03/04/17 at 06:00 Vancomycin HCl/ Sodium Chloride (Vancocin/NS) 250 ml @ 83.333 mls/ hr Q24H IVPB Last administered on 03/06/17 17:19; Admin Dose 83.333 MLS/HR; Start at 16:00 Insulin Aspart NOVOLOG *MILD* ALGORI... Q4 SC Last administered on 03/06/17 21 :26; Admin Dose 1 UNIT; Start 03/06/17 at 05:00 Norepinephrine/ Dextrose (Levophed/D5W) 500 ml @ 1.87 mls/hr TITRATE IV ; Start 03/06/17 at 07:00 Aspirin (Halfprin) 81 mg DAILY PO ; Start 03/07/17 at 09:00 Atorvastatin Calcium (Lipitor) 40 mg QHS PO ; Start 03/06/17 at 21:00 Diclofenac Sodium (Voltaren) 75 mg DAILY PO ; Start 03/07/17 at 09:00 Donepezil HCl (Aricept) 5 mg QHS PO ; Start 03/06/17 at 21:00 Hydralazine HCl (Apresoline) 10 mg Q6H PRN IV ELEVATED BLOOD PRESSURE; Start at 09:30 Miscellaneous Information VANCOMYCIN TROUGH LEVEL... ONCE ONCE XX ; Start 03/08 at 15:00; Stop 03/08/17 at 15:01 Dexmedetomidine HCl/Sodium Chloride (Precedex/NS) 50 ml @ 0 mls/hr TITRATE IV ; Start 03/07/17 at 11:30; Status UNHAO MUNOZ NP Mar 07, 2017 11:34
[2017-03-07] MEDS: DEXMEDETOMIDINE HCL 200 MCG in SOD CHLORIDE 0.9% 48 ML IV SCH ×5 (13:27→23:44)
--- NOTE | 2017-03-07 16:21 | PN ---
Date/Time of Note Date/Time of Note DATE: 03/07/17 TIME: 16:19 Assessment/Plan VTE Prophylaxis VTE Prophylaxis Intervention: other Lines/Catheters IV Catheter Type (from Nrs): Central Line Central line still needed: Yes Urinary Cath still in place: Yes Reason Cath still needed: other (indicate) Assessment/Plan Chief Complaint/Hosp Course 1. P afib with RVR 2. acute hypoxemic respiratory failure: intubated now 3. + troponin: c.w NSTEMI due to demand ischemia due to above 4. DM and severely elevated glucose: controlled with insulin 5. dyslipidemia 6. pneumonia/ sepsis 7. shock : appear to be related to sepsis: currently still on levophed 8. hx memory impairment 9. anemia and GI bleed ASA on hold due to concerns about GI bleed off of plavix due to above off of cardizem drip unable to take any po meds now DM Control with insulin echo shows normal EF replace lytes including K and Mg prn cont ICU care Problems: Subjective 24 Hr Interval Summary Free Text/Dictation CARDIOLOGY FOLLOW UP NOTE/ critical care note d/w staff in ICU and rhythm was reviewed. pt remains in NSR/ SINUS Bhaskar and frequent PVC/ PAC. but no more Afib noted. one short run of SVT and short NSVT noted. pt is nonverbal on vent no more bleeding is reported. OBJECTIVE: General: intubated on vent. HEENT: NC/AT. pupils are constricted. round. NECK: NO JVD. no stridor. CV: RRR. systolic murmur; no gallop or rubs. PULM: no wheezing or rhonchi. GI: SOFT, NT, ND, no rebound or guarding Extremity: trace B/L LE edema. no clubbing. neuro: sedated . Psych: calm and pleasant rectal: deferred : normal ECHO personally reviewed: 1. Normal left ventricular systolic function. Normal left ventricular cavity size. Mild concentric left ventricular hypertrophy. Ejection fraction is visually estimated at 55 %. Tissue Doppler/Mitral Doppler indices are consistent with impaired relaxation (Stage I diastolic dysfunction). 2. The left atrium is normal in size. 3. Mitral valve leaflets appear mildly thickened. Mild mitral annular calcification. Trace mitral regurgitation. 4. No significant aortic stenosis or insufficiency. Aortic sclerosis without stenosis. 5. Normal appearance of the tricuspid valve. Estimated peak PA systolic pressure 26 mmHg. There is mild tricuspid regurgitation. Exam/Review of Systems Vital Signs Vitals Vital Signs Date Time Temp Pulse Resp B/P Pulse Ox O2 Delivery O2 Flow Rate FiO2 03/07/17 13:23 64 20 94 30 03/07/17 13:00 136/44 Mechanical Ventilator 03/07/17 12:00 99.6 Intake and Output 03/06/17 03/06/17 03/07/17 15:00 23:00 07:00 Intake Total 483.95 ml 272.600 ml 129.6 ml Output Total 495 ml 575 ml 500 ml Balance -11.05 ml -302.400 ml -370.4 ml Results Result Diagram: 03/07/17 0430 03/07/17 0430 Results 24 hrs Laboratory Tests Test 03/06/17 17:17 03/06/17 21:22 03/07/17 01:06 03/07/17 04:30 Bedside Glucose 149 143 125 White Blood Count 12.9 H Red Blood Count 3.18 L Hemoglobin 9.6 L Hematocrit 30.6 L Mean Corpuscular Volume 96.2 Mean Corpuscular Hemoglobin 30.2 Mean Corpuscular Hemoglobin Concent 31.4 L Red Cell Distribution Width 14.9 H Platelet Count 292 Mean Platelet Volume 11.1 H Neutrophils % 68.0 Band Neutrophils % 2.0 Lymphocytes % 17.0 Monocytes % 4.0 Eosinophils % 4.0 Basophils % 1.0 Metamyelocytes % 1.0 H Myelocytes % 3.0 H Neutrophils # 8.8 H Lymphocytes # 2.2 Monocytes # 0.5 Eosinophils # 0.5 Basophils # 0.1 Metamyelocytes # 0.1 Myelocytes # 0.4 Sodium Level 146 H Potassium Level 3.6 Chloride Level 111 H Carbon Dioxide Level 25 Anion Gap 14 Blood Urea Nitrogen 8 Creatinine 0.71 Glucose Level 120 # Hemoglobin A1c 7.5 H Calcium Level 8.5 Phosphorus Level 3.6 Magnesium Level 2.0 Test 03/07/17 04:52 03/07/17 08:33 03/07/17 12:54 Bedside Glucose 113 135 138 Medications Medications Current Medications Acetaminophen 650 mg 650 mg Q4H PRN [place] PAIN LEVEL 1-3 OR FEVER; Start 03/02/17 at 00:30 Piperacillin Sod/ Tazobactam Sod (Zosyn 3.375gm/ 100 ml (Pmx)) 100 ml @ 200 mls /hr Q8 IVPB Last administered on 03/07/17 13:20; Admin Dose 200 MLS/HR; Start 03/02/17 at 00:30 Miscellaneous Information 1 ea NOTE XX ; Start 03/02/17 at 00:30 Glucose (Glutose) 15 gm Q15M PRN PO DECREASED GLUCOSE; Start 03/02/17 at 00:30 Glucose (Glutose) 22.5 gm Q15M PRN PO DECREASED GLUCOSE; Start 03/02/17 at 00: 30 Dextrose (D50w Syringe) 25 ml Q15M PRN IV DECREASED GLUCOSE; Start 03/02/17 at 00:30 Dextrose (D50w Syringe) 50 ml Q15M PRN IV DECREASED GLUCOSE; Start 03/02/17 at 00:30 Glucagon (Glucagen) 1 mg Q15M PRN IM DECREASED GLUCOSE; Start 03/02/17 at 00:30 Glucose 15 gm 15 gm Q15M PRN BUCCAL DECREASED GLUCOSE; Start 03/02/17 at 00:30 Fluconazole 100 ml @ 100 mls/hr Q24H IVPB Last administered on 03/07/17 04:28 ; Admin Dose 100 MLS/HR; Start 03/02/17 at 04:00 Propofol (Diprivan) 100 ml @ 2.4 mls/hr Q12H IV Last administered on 10:37; Admin Dose 19.2 MLS/HR; Start 03/02/17 at 05:30 Pantoprazole 40 mg 40 mg BID@06,18 IV Last administered on 03/07/17 06:19; Admin Dose 40 MG; Start 03/04/17 at 06:00 Vancomycin HCl/ Sodium Chloride (Vancocin/NS) 250 ml @ 83.333 mls/ hr Q24H IVPB Last administered on 03/06/17 17:19; Admin Dose 83.333 MLS/HR; Start at 16:00 Insulin Aspart NOVOLOG *MILD* ALGORI... Q4 SC Last administered on 03/06/17 21 :26; Admin Dose 1 UNIT; Start 03/06/17 at 05:00 Norepinephrine/ Dextrose (Levophed/D5W) 500 ml @ 1.87 mls/hr TITRATE IV ; Start 03/06/17 at 07:00 Aspirin (Halfprin) 81 mg DAILY PO ; Start 03/07/17 at 09:00 Atorvastatin Calcium (Lipitor) 40 mg QHS PO ; Start 03/06/17 at 21:00 Diclofenac Sodium (Voltaren) 75 mg DAILY PO ; Start 03/07/17 at 09:00 Donepezil HCl (Aricept) 5 mg QHS PO ; Start 03/06/17 at 21:00 Hydralazine HCl (Apresoline) 10 mg Q6H PRN IV ELEVATED BLOOD PRESSURE; Start at 09:30 Miscellaneous Information VANCOMYCIN TROUGH LEVEL... ONCE ONCE XX ; Start 03/08 at 15:00; Stop 03/08/17 at 15:01 Dexmedetomidine HCl/Sodium Chloride (Precedex/NS) 50 ml @ 0 mls/hr TITRATE IV Last administered on 03/07/17t 13:27; Admin Dose 3.89 MLS/HR; Start 03/07/17 at 11:30 TYREE MCKOY MD Mar 07, 2017 16:21
[2017-03-07] MEDS: VANCOMYCIN 1.5 GM in SOD CHLORIDE 0.9% 250 ML IVPB SCH (16:49)
[2017-03-07] MEDS: hydrALAzine 20 MG INJ IV PRN (18:04)
[2017-03-07] MEDS: DONEPEZIL 5 MG TAB PO SCH (21:00)
[2017-03-07] MEDS: ATORVASTATIN 40 MG TAB PO SCH (21:00)
[2017-03-08] VITALS (30 sets, daily range): BP systolic 87–173; BP diastolic 37–74; PULSE 46–110; RESP 12–22
[2017-03-08] MEDS: INSULIN ASPART [NOVOLOG] 3 ML PEN SC SCH ×6 (01:07→21:23)
[2017-03-08] MEDS: hydrALAzine 20 MG INJ IV PRN (02:13)
[2017-03-08] MEDS: DEXMEDETOMIDINE HCL 200 MCG in SOD CHLORIDE 0.9% 48 ML IV SCH ×4 (02:17→12:42)
[2017-03-08] MEDS: FLUCONAZOLE 200 MG/NS (PMX) 100 ML IVPB SCH (04:32)
[2017-03-08 05:26] LABS: MAGNESIUM 1.4 mg/dl (1.7-2.5); PHOSPHORUS 3.3 mg/dl (2.5-4.9)
[2017-03-08] MEDS: PANTOPRAZOLE 40 MG INJ IV SCH ×2 (05:31→17:15)
[2017-03-08] MEDS: PIPER-TAZO 3.375 GM IV (PMX) 100 ML IVPB SCH ×3 (05:31→21:13)
[2017-03-08 06:33] LABS: ADD SCAN DIFF NO
[2017-03-08 06:49] LABS: CALCIUM 8.7 mg/dl (8.4-10.2); CREATININE 0.65 mg/dl (0.44-1.00); POTASSIUM 3.1 mmol/L (3.5-5.1)
[2017-03-08 06:52] LABS: ABNORMAL IP MESSAGE 1; BASOPHILS % 0.2 % (0.0-2.0); EOSINOPHILS # 0.4 10^3/ul (0.0-0.5); EOSINOPHILS % 4.7 % (0.0-7.0); LYMPHOCYTES # 1.3 10^3/ul (0.8-2.9); LYMPHOCYTES % 14.5 % (15.0-51.0); MEAN CORPUSCULAR HEMOGLOBIN 29.9 pg (29.0-33.0); MEAN CORPUSCULAR HGB CONC 31.3 g/dl (32.0-37.0); MEAN CORPUSCULAR VOLUME 95.5 fl (82.0-101.0); MEAN PLATELET VOLUME 10.6 fl (7.4-10.4); MONOCYTE # 0.6 10^3/ul (0.3-0.9); MONOCYTES % 6.7 % (0.0-11.0); NEUTROPHIL # 6.1 10^3/ul (1.6-7.5); NEUTROPHILS % 67.3 % (39.0-77.0); PLATELET COUNT 292 10^3/UL (140-415); RED BLOOD COUNT 3.35 10^6/ul (4.20-5.40); RED CELL DISTRIBUTION WIDTH 14.6 % (11.5-14.5); WHITE BLOOD COUNT 9.1 10^3/ul (4.8-10.8)
[2017-03-08] MEDS ORDERED: POTASSIUM CHLORIDE 20 MEQ in SOD CHLORIDE 0.9% 100 ML IVPB ONE (07:00)
[2017-03-08] MEDS ORDERED: MAGNESIUM SULFATE 2 GM/50 ML 50 ML IVPB ONE (07:00)
--- NOTE | 2017-03-08 07:16 | PN ---
Date/Time of Note Date/Time of Note DATE: 03/08/17 TIME: 07:14 Assessment/Plan VTE Prophylaxis VTE Prophylaxis Intervention: other Lines/Catheters IV Catheter Type (from Nrs): Central Line Central line still needed: Yes Urinary Cath still in place: Yes Reason Cath still needed: other (indicate) Assessment/Plan Chief Complaint/Hosp Course 1. P afib with RVR: currently remains in NSR 2. acute hypoxemic respiratory failure: intubated now 3. + troponin: c.w NSTEMI due to demand ischemia due to above 4. DM and severely elevated glucose: controlled with insulin 5. dyslipidemia 6. pneumonia/ sepsis 7. shock : appear to be related to sepsis: currently still on levophed 8. hx memory impairment 9. anemia and GI bleed RESUME ASA once ok with GI. off of plavix due to above off of cardizem drip unable to take any po meds now DM Control with insulin echo shows normal EF replace lytes including K and Mg prn. WILL order repeat labs in pm cont ICU care Problems: Subjective 24 Hr Interval Summary Free Text/Dictation CARDIOLOGY FOLLOW UP NOTE/ critical care note d/w staff in ICU and rhythm was reviewed. pt remains in NSR/ SINUS Bhaskar and frequent PVC/ PAC. but no more Afib noted. pt is nonverbal on vent no more bleeding is reported. OBJECTIVE: General: intubated on vent. HEENT: NC/AT. pupils are constricted. round. NECK: NO JVD. no stridor. CV: RRR. systolic murmur; no gallop or rubs. PULM: no wheezing or rhonchi. GI: SOFT, NT, ND, no rebound or guarding Extremity: trace B/L LE edema. no clubbing. neuro: awake but does not answer my questions. . Psych: agitated. rectal: deferred : normal ECHO personally reviewed: 1. Normal left ventricular systolic function. Normal left ventricular cavity size. Mild concentric left ventricular hypertrophy. Ejection fraction is visually estimated at 55 %. Tissue Doppler/Mitral Doppler indices are consistent with impaired relaxation (Stage I diastolic dysfunction). 2. The left atrium is normal in size. 3. Mitral valve leaflets appear mildly thickened. Mild mitral annular calcification. Trace mitral regurgitation. 4. No significant aortic stenosis or insufficiency. Aortic sclerosis without stenosis. 5. Normal appearance of the tricuspid valve. Estimated peak PA systolic pressure 26 mmHg. There is mild tricuspid regurgitation. Exam/Review of Systems Vital Signs Vitals Vital Signs Date Time Temp Pulse Resp B/P Pulse Ox O2 Delivery O2 Flow Rate FiO2 03/08/17 06:00 53 20 145/49 93 Mechanical Ventilator 03/08/17 05:17 35 03/08/17 04:00 98.3 Intake and Output 03/07/17 03/07/17 03/08/17 15:00 23:00 07:00 Intake Total 229.6 ml 428.12 ml 75 ml Output Total 820 ml 935 ml 600 ml Balance -590.4 ml -506.88 ml -525 ml Results Result Diagram: 03/08/17 0430 03/08/17 0430 Results 24 hrs Laboratory Tests Test 03/07/17 08:33 03/07/17 12:54 03/07/17 16:52 03/07/17 21:04 Bedside Glucose 135 138 187 155 Test 03/08/17 01:05 03/08/17 04:30 03/08/17 05:08 Bedside Glucose 163 164 White Blood Count 9.1 # Red Blood Count 3.35 L Hemoglobin 10.0 L Hematocrit 32.0 L Mean Corpuscular Volume 95.5 Mean Corpuscular Hemoglobin 29.9 Mean Corpuscular Hemoglobin Concent 31.3 L Red Cell Distribution Width 14.6 H Platelet Count 292 Mean Platelet Volume 10.6 H Neutrophils % 67.3 Lymphocytes % 14.5 L Monocytes % 6.7 Eosinophils % 4.7 Basophils % 0.2 Nucleated Red Blood Cells % 0.0 Neutrophils # 6.1 Lymphocytes # 1.3 Monocytes # 0.6 Eosinophils # 0.4 Basophils # 0.0 Nucleated Red Blood Cells # 0.0 Sodium Level 148 H Potassium Level 3.1 L Chloride Level 110 Carbon Dioxide Level 23 Anion Gap 18 H Blood Urea Nitrogen 10 Creatinine 0.65 Glucose Level 170 Calcium Level 8.7 Phosphorus Level 3.3 Magnesium Level 1.4 L Medications Medications Current Medications Acetaminophen 650 mg 650 mg Q4H PRN [place] PAIN LEVEL 1-3 OR FEVER; Start 03/02/17 at 00:30 Piperacillin Sod/ Tazobactam Sod (Zosyn 3.375gm/ 100 ml (Pmx)) 100 ml @ 200 mls /hr Q8 IVPB Last administered on 03/08/17t 05:31; Admin Dose 200 MLS/HR; Start 03/02/17 at 00:30 Miscellaneous Information 1 ea NOTE XX ; Start 03/02/17 at 00:30 Glucose (Glutose) 15 gm Q15M PRN PO DECREASED GLUCOSE; Start 03/02/17 at 00:30 Glucose (Glutose) 22.5 gm Q15M PRN PO DECREASED GLUCOSE; Start 03/02/17 at 00: 30 Dextrose (D50w Syringe) 25 ml Q15M PRN IV DECREASED GLUCOSE; Start 03/02/17 at 00:30 Dextrose (D50w Syringe) 50 ml Q15M PRN IV DECREASED GLUCOSE; Start 03/02/17 at 00:30 Glucagon (Glucagen) 1 mg Q15M PRN IM DECREASED GLUCOSE; Start 03/02/17 at 00:30 Glucose 15 gm 15 gm Q15M PRN BUCCAL DECREASED GLUCOSE; Start 03/02/17 at 00:30 Fluconazole 100 ml @ 100 mls/hr Q24H IVPB Last administered on 03/08/17 04:32 ; Admin Dose 100 MLS/HR; Start 03/02/17 at 04:00 Propofol (Diprivan) 100 ml @ 2.4 mls/hr Q12H IV Last administered on 16:47; Admin Dose 19.2 MLS/HR; Start 03/02/17 at 05:30 Pantoprazole 40 mg 40 mg BID@06,18 IV Last administered on 03/08/17 05:31; Admin Dose 40 MG; Start 03/04/17 at 06:00 Vancomycin HCl/ Sodium Chloride (Vancocin/NS) 250 ml @ 83.333 mls/ hr Q24H IVPB Last administered on 03/07/17 16:49; Admin Dose 83.333 MLS/HR; Start at 16:00 Insulin Aspart NOVOLOG *MILD* ALGORI... Q4 SC Last administered on 03/08/17 05 :11; Admin Dose 1 UNIT; Start 03/06/17 at 05:00 Norepinephrine/ Dextrose (Levophed/D5W) 500 ml @ 1.87 mls/hr TITRATE IV ; Start 03/06/17 at 07:00 Aspirin (Halfprin) 81 mg DAILY PO ; Start 03/07/17 at 09:00 Atorvastatin Calcium (Lipitor) 40 mg QHS PO ; Start 03/06/17 at 21:00 Diclofenac Sodium (Voltaren) 75 mg DAILY PO ; Start 03/07/17 at 09:00 Donepezil HCl (Aricept) 5 mg QHS PO ; Start 03/06/17 at 21:00 Hydralazine HCl (Apresoline) 10 mg Q6H PRN IV ELEVATED BLOOD PRESSURE Last administered on 03/08/17 02:13; Admin Dose 10 MG; Start 03/07/17 at 09:30 Miscellaneous Information VANCOMYCIN TROUGH LEVEL... ONCE ONCE XX ; Start 03/08 at 15:00; Stop 03/08/17 at 15:01 Dexmedetomidine HCl 200 mcg/ Sodium Chloride 50 ml @ 0 mls/hr TITRATE IV Last administered on 03/08/17 04:58; Admin Dose 27.23 MLS/HR; Start 03/07/17 at 11: 30 Magnesium Sulfate 50 ml @ 25 mls/hr ONCE ONCE IVPB ; Start 03/08/17 at 07:00; Stop 03/08/17 at 08:59 Potassium Chloride/Sodium Chloride (KCl/NS) 110 ml @ 55 mls/hr ONCE ONCE IVPB ; Start 03/08/17 at 07:00; Stop 03/08/17 at 08:59 TYREE MCKOY MD Mar 08, 2017 07:16
[2017-03-08] MEDS ORDERED: POTASSIUM CHLORIDE 250 ML IVPB ONE (07:30)
[2017-03-08] MEDS ORDERED: MAGNESIUM SULFATE 4 GM/100 ML 100 ML IVPB ONE (08:30)
[2017-03-08] MEDS: DICLOFENAC (EC) 75 MG TAB PO SCH (09:00)
[2017-03-08] MEDS: ASPIRIN (EC) 81 MG TAB PO SCH (09:00)
--- NOTE | 2017-03-08 09:32 | CONS ---
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 Primary health care team Dr. Liriano is attending to all of her acute healthcare issues Consultation Date/Type/Reason Admit Date/Time Mar 01, 2017 at 20:20 Date of Consultation: Mar 08, 2017 Reason for Consultation Palliative care Hx of Present Illness This is an 86-year-old female who was in the intensive care unit after she presented to [facility] with respiratory failure, she is intubated. Patient also has severe sepsis history of diabetes hypertension fluid and electrolyte abnormalities and mental status changes. By history patient's family lives in [place] she only has a caregiver living with her here. I'm access with ongoing level of care based more on communication with family members. It is my understanding that case management has a phone number to family members that is available in patient's medical records. Past Medical History Medical History: diabetes, high cholesterol, other (Incomplete database) Past Surgical History Past Surgical Hx: no surgical history Social History Smoking Status: Former smoker Exam/Review of Systems Vital Signs Vitals Vital Signs Date Time Temp Pulse Resp B/P Pulse Ox O2 Delivery O2 Flow Rate FiO2 03/08/17 08:00 46 03/08/17 06:00 20 145/49 93 Mechanical Ventilator 03/08/17 05:17 35 03/08/17 04:00 98.3 Intake and Output 03/07/17 03/07/17 03/08/17 15:00 23:00 07:00 Intake Total 229.6 ml 428.12 ml 175 ml Output Total 820 ml 935 ml 600 ml Balance -590.4 ml -506.88 ml -425 ml Exam Constitutional: frail, non-verbal Head: atraumatic, normocephalic Neck: non-tender, supple Respiratory: congested cough, crackles/rales, diminished breath sounds Cardiovascular: nl pulses, regular rate and rhythm Neurological: other (Bilateral pinpoint pupils, cannot participate in motor or sensory examination, moving all extremities non-purposefully, does not respond to any simple commands) Results Result Diagram: 03/08/17 0430 03/08/17 0430 Results 24 hrs Laboratory Tests Test 03/07/17 12:54 03/07/17 16:52 03/07/17 21:04 03/08/17 01:05 Bedside Glucose 138 187 155 163 Test 03/08/17 04:30 03/08/17 05:08 03/08/17 09:24 White Blood Count 9.1 # Red Blood Count 3.35 L Hemoglobin 10.0 L Hematocrit 32.0 L Mean Corpuscular Volume 95.5 Mean Corpuscular Hemoglobin 29.9 Mean Corpuscular Hemoglobin Concent 31.3 L Red Cell Distribution Width 14.6 H Platelet Count 292 Mean Platelet Volume 10.6 H Neutrophils % 67.3 Lymphocytes % 14.5 L Monocytes % 6.7 Eosinophils % 4.7 Basophils % 0.2 Nucleated Red Blood Cells % 0.0 Neutrophils # 6.1 Lymphocytes # 1.3 Monocytes # 0.6 Eosinophils # 0.4 Basophils # 0.0 Nucleated Red Blood Cells # 0.0 Sodium Level 148 H Potassium Level 3.1 L Chloride Level 110 Carbon Dioxide Level 23 Anion Gap 18 H Blood Urea Nitrogen 10 Creatinine 0.65 Glucose Level 170 Calcium Level 8.7 Phosphorus Level 3.3 Magnesium Level 1.4 L Bedside Glucose 164 140 Medications Medications Current Medications Acetaminophen 650 mg 650 mg Q4H PRN [place] PAIN LEVEL 1-3 OR FEVER; Start 03/02/17 at 00:30 Piperacillin Sod/ Tazobactam Sod (Zosyn 3.375gm/ 100 ml (Pmx)) 100 ml @ 200 mls /hr Q8 IVPB Last administered on 03/08/17t 05:31; Admin Dose 200 MLS/HR; Start 03/02/17 at 00:30 Miscellaneous Information 1 ea NOTE XX ; Start 03/02/17 at 00:30 Glucose (Glutose) 15 gm Q15M PRN PO DECREASED GLUCOSE; Start 03/02/17 at 00:30 Glucose (Glutose) 22.5 gm Q15M PRN PO DECREASED GLUCOSE; Start 03/02/17 at 00: 30 Dextrose (D50w Syringe) 25 ml Q15M PRN IV DECREASED GLUCOSE; Start 03/02/17 at 00:30 Dextrose (D50w Syringe) 50 ml Q15M PRN IV DECREASED GLUCOSE; Start 03/02/17 at 00:30 Glucagon (Glucagen) 1 mg Q15M PRN IM DECREASED GLUCOSE; Start 03/02/17 at 00:30 Glucose 15 gm 15 gm Q15M PRN BUCCAL DECREASED GLUCOSE; Start 03/02/17 at 00:30 Fluconazole 100 ml @ 100 mls/hr Q24H IVPB Last administered on 03/08/17 04:32 ; Admin Dose 100 MLS/HR; Start 03/02/17 at 04:00 Propofol (Diprivan) 100 ml @ 2.4 mls/hr Q12H IV Last administered on 16:47; Admin Dose 19.2 MLS/HR; Start 03/02/17 at 05:30 Pantoprazole 40 mg 40 mg BID@06,18 IV Last administered on 03/08/17 05:31; Admin Dose 40 MG; Start 03/04/17 at 06:00 Vancomycin HCl/ Sodium Chloride (Vancocin/NS) 250 ml @ 83.333 mls/ hr Q24H IVPB Last administered on 03/07/17 16:49; Admin Dose 83.333 MLS/HR; Start at 16:00 Insulin Aspart NOVOLOG *MILD* ALGORI... Q4 SC Last administered on 03/08/17 05 :11; Admin Dose 1 UNIT; Start 03/06/17 at 05:00 Norepinephrine/ Dextrose (Levophed/D5W) 500 ml @ 1.87 mls/hr TITRATE IV ; Start 03/06/17 at 07:00 Aspirin (Halfprin) 81 mg DAILY PO ; Start 03/07/17 at 09:00 Atorvastatin Calcium (Lipitor) 40 mg QHS PO ; Start 03/06/17 at 21:00 Diclofenac Sodium (Voltaren) 75 mg DAILY PO ; Start 03/07/17 at 09:00 Donepezil HCl (Aricept) 5 mg QHS PO ; Start 03/06/17 at 21:00 Hydralazine HCl (Apresoline) 10 mg Q6H PRN IV ELEVATED BLOOD PRESSURE Last administered on 03/08/17 02:13; Admin Dose 10 MG; Start 03/07/17 at 09:30 Miscellaneous Information VANCOMYCIN TROUGH LEVEL... ONCE ONCE XX ; Start 03/08 at 15:00; Stop 03/08/17 at 15:01 Dexmedetomidine HCl 200 mcg/ Sodium Chloride 50 ml @ 0 mls/hr TITRATE IV Last administered on 03/08/17 07:13; Admin Dose 27.23 MLS/HR; Start 03/07/17 at 11: 30 Magnesium Sulfate 100 ml @ 25 mls/hr ONCE ONCE IVPB Last administered on 03/08 09:14; Admin Dose 25 MLS/HR; Start 03/08/17 at 08:30; Stop 03/08/17 at 12: 29 Potassium Chloride (KCl 40 MEQ/250 ML NS) 250 ml @ 62.5 mls/hr ONCE ONCE IVPB Last administered on 03/08/17 08:04; Admin Dose 62.5 MLS/HR; Start 03/08/17 at 07:30; Stop 03/08/17 at 11:29 CARY WALTER Mar 08, 2017 09:31
--- NOTE | 2017-03-08 09:40 | PN ---
Date/Time of Note Date/Time of Note DATE: 03/08/17 TIME: 09:22 Assessment/Plan VTE Prophylaxis VTE Prophylaxis Intervention: SCD's Lines/Catheters IV Catheter Type (from Nrs): Central Line Central line still needed: Yes Urinary Cath still in place: Yes Reason Cath still needed: urinary retention Assessment/Plan Chief Complaint/Hosp Course Assessment/Plan: 86 yo F with dementia admitted from facility for acute hypoxic respiratory failure and sepsis: likely 2/2 aspiration pneumonia 1. acute hypoxic respiratory failure: 2/2 aspiration pna Continue vent management as per pulmonology - extubate when tolerable Continue IV antibiotics and breathing treatment, f/u pulm and ID rec's 2. Severe sepsis: from aspiration pna, ID following. Likely secondary to respiratory infection. Off pressors presently. Continue IV vancomycin and Zosyn. 3. Tachycardia: Likely secondary to #2 and #1, per CV team, possibly afib with RVR earlier, Status post Cardizem drip, now rate controlled. HR <100 off amio - monitor, f/u CV rec's 4. suspected fungal esophagitis: Continue IV fluconazole. (defer to ID) 5. diabetes mellitus: Continue insulin sliding scale. resume basal insulin once pt taking PO again 6. History of essential hypertension: ARB on hold 7. Questionable GI bleed: sp EGD 7.15 , +gastritis - f/u GI rec's, continue PPI IV - avoid NG tube for now unless absolutely necessary 8. DVT and GI prophylaxis: SCDs, Protonix 9. thyroid - 7.13 labs notable for hyperthyroid (TSH low, t4 high)-->consider post discharge fu with PCP 10. hypernatremia - mildly elevated (146 -> 148) - monitor for now, consider D5W IV fluids if worsens 11. low electrolytes: Replete Code status: unfortunately pt with dementia and no advanced directive or family. Given aspiration most likely 2/2 dementia for which there is no cure, suspect aspiration will occur again. Appreciate palliative team consult, they will try to contact family members [place]. critical care time: 45 minutes Problems: Subjective 24 Hr Interval Summary Free Text/Dictation Patient still intubated, off sedation presently, opens eyes, seen by cardiology team this morning. Exam/Review of Systems Vital Signs Vitals Vital Signs Date Time Temp Pulse Resp B/P Pulse Ox O2 Delivery O2 Flow Rate FiO2 03/08/17 08:00 46 03/08/17 06:00 20 145/49 93 Mechanical Ventilator 03/08/17 05:17 35 03/08/17 04:00 98.3 Intake and Output 03/07/17 03/07/17 03/08/17 15:00 23:00 07:00 Intake Total 229.6 ml 428.12 ml 175 ml Output Total 820 ml 935 ml 600 ml Balance -590.4 ml -506.88 ml -425 ml Exam GENERAL: Elderly lady intubated on mechanical ventilation appears comfortable at rest HEENT: Pupils equal, round, and reactive to light. CARDIAC: S1, S2, 1/6 systolic ejection murmur CHEST: some diminished air entry bilaterally. ABDOMEN: Mildly distended. Bowel sounds present no guarding or rebound EXTREMITIES: No cyanosis, clubbing edema +1 NEUROLOGIC: Generalized weakness+ Results Result Diagram: 03/08/17 0430 03/08/17 0430 Results 24 hrs Laboratory Tests Test 03/07/17 12:54 03/07/17 16:52 03/07/17 21:04 03/08/17 01:05 Bedside Glucose 138 187 155 163 Test 03/08/17 04:30 03/08/17 05:08 White Blood Count 9.1 # Red Blood Count 3.35 L Hemoglobin 10.0 L Hematocrit 32.0 L Mean Corpuscular Volume 95.5 Mean Corpuscular Hemoglobin 29.9 Mean Corpuscular Hemoglobin Concent 31.3 L Red Cell Distribution Width 14.6 H Platelet Count 292 Mean Platelet Volume 10.6 H Neutrophils % 67.3 Lymphocytes % 14.5 L Monocytes % 6.7 Eosinophils % 4.7 Basophils % 0.2 Nucleated Red Blood Cells % 0.0 Neutrophils # 6.1 Lymphocytes # 1.3 Monocytes # 0.6 Eosinophils # 0.4 Basophils # 0.0 Nucleated Red Blood Cells # 0.0 Sodium Level 148 H Potassium Level 3.1 L Chloride Level 110 Carbon Dioxide Level 23 Anion Gap 18 H Blood Urea Nitrogen 10 Creatinine 0.65 Glucose Level 170 Calcium Level 8.7 Phosphorus Level 3.3 Magnesium Level 1.4 L Bedside Glucose 164 Medications Medications Current Medications Acetaminophen 650 mg 650 mg Q4H PRN [place] PAIN LEVEL 1-3 OR FEVER; Start 03/02/17 at 00:30 Piperacillin Sod/ Tazobactam Sod (Zosyn 3.375gm/ 100 ml (Pmx)) 100 ml @ 200 mls /hr Q8 IVPB Last administered on 03/08/17 05:31; Admin Dose 200 MLS/HR; Start 03/02/17 at 00:30 Miscellaneous Information 1 ea NOTE XX ; Start 03/02/17 at 00:30 Glucose (Glutose) 15 gm Q15M PRN PO DECREASED GLUCOSE; Start 03/02/17 at 00:30 Glucose (Glutose) 22.5 gm Q15M PRN PO DECREASED GLUCOSE; Start 03/02/17 at 00: 30 Dextrose (D50w Syringe) 25 ml Q15M PRN IV DECREASED GLUCOSE; Start 03/02/17 at 00:30 Dextrose (D50w Syringe) 50 ml Q15M PRN IV DECREASED GLUCOSE; Start 03/02/17 at 00:30 Glucagon (Glucagen) 1 mg Q15M PRN IM DECREASED GLUCOSE; Start 03/02/17 at 00:30 Glucose 15 gm 15 gm Q15M PRN BUCCAL DECREASED GLUCOSE; Start 03/02/17 at 00:30 Fluconazole 100 ml @ 100 mls/hr Q24H IVPB Last administered on 03/08/17 04:32 ; Admin Dose 100 MLS/HR; Start 03/02/17 at 04:00 Propofol (Diprivan) 100 ml @ 2.4 mls/hr Q12H IV Last administered on 16:47; Admin Dose 19.2 MLS/HR; Start 03/02/17 at 05:30 Pantoprazole 40 mg 40 mg BID@06,18 IV Last administered on 03/08/17 05:31; Admin Dose 40 MG; Start 03/04/17 at 06:00 Vancomycin HCl/ Sodium Chloride (Vancocin/NS) 250 ml @ 83.333 mls/ hr Q24H IVPB Last administered on 03/07/17 16:49; Admin Dose 83.333 MLS/HR; Start at 16:00 Insulin Aspart NOVOLOG *MILD* ALGORI... Q4 SC Last administered on 03/08/17 05 :11; Admin Dose 1 UNIT; Start 03/06/17 at 05:00 Norepinephrine/ Dextrose (Levophed/D5W) 500 ml @ 1.87 mls/hr TITRATE IV ; Start 03/06/17 at 07:00 Aspirin (Halfprin) 81 mg DAILY PO ; Start 03/07/17 at 09:00 Atorvastatin Calcium (Lipitor) 40 mg QHS PO ; Start 03/06/17 at 21:00 Diclofenac Sodium (Voltaren) 75 mg DAILY PO ; Start 03/07/17 at 09:00 Donepezil HCl (Aricept) 5 mg QHS PO ; Start 03/06/17 at 21:00 Hydralazine HCl (Apresoline) 10 mg Q6H PRN IV ELEVATED BLOOD PRESSURE Last administered on 03/08/17 02:13; Admin Dose 10 MG; Start 03/07/17 at 09:30 Miscellaneous Information VANCOMYCIN TROUGH LEVEL... ONCE ONCE XX ; Start 03/08 at 15:00; Stop 03/08/17 at 15:01 Dexmedetomidine HCl 200 mcg/ Sodium Chloride 50 ml @ 0 mls/hr TITRATE IV Last administered on 03/08/17 07:13; Admin Dose 27.23 MLS/HR; Start 03/07/17 at 11: 30 Magnesium Sulfate 100 ml @ 25 mls/hr ONCE ONCE IVPB Last administered on 03/08 09:14; Admin Dose 25 MLS/HR; Start 03/08/17 at 08:30; Stop 03/08/17 at 12: 29 Potassium Chloride (KCl 40 MEQ/250 ML NS) 250 ml @ 62.5 mls/hr ONCE ONCE IVPB Last administered on 03/08/17 08:04; Admin Dose 62.5 MLS/HR; Start 03/08/17 at 07:30; Stop 03/08/17 at 11:29 FERNANDO DIMAS Mar 08, 2017 09:32
--- NOTE | 2017-03-08 10:29 | CONS ---
Date/Time of Note Date/Time of Note DATE: 03/08/17 TIME: 10:28 Consult Date/Type/Reason Admit Date/Time Mar 01, 2017 at 20:20 Initial Consult Date 03/02/17 Type of Consultation: Pulmonary Ordering Provider: MICHELLE MORENO Subjective Patient placed on Precedex yesterday is awake alert oriented this morning on mechanical ventilation on CPAP trial. Remains hemodynamically stable. Objective Vital Signs Date Time Temp Pulse Resp B/P Pulse Ox O2 Delivery O2 Flow Rate FiO2 03/08/17 10:00 58 15 100/43 94 CPAP 03/08/17 08:00 97.6 03/08/17 08:00 35 Intake and Output 03/07/17 03/07/17 03/08/17 14:59 22:59 06:59 Intake Total 248.8 ml 403.12 ml 200 ml Output Total 760 ml 1020 ml 650 ml Balance -511.2 ml -616.88 ml -450 ml Exam PHYSICAL EXAMINATION GENERAL: Elderly lady intubated on mechanical ventilation appears comfortable at rest VITAL SIGNS: see below. HEENT: Pupils equal, round, and reactive to light. CARDIAC: S1, S2, 1/6 systolic ejection murmur CHEST: Diminished air entry bilaterally. ABDOMEN: Mildly distended. Bowel sounds present no guarding or rebound EXTREMITIES: No cyanosis, clubbing edema +1 NEUROLOGIC: Generalized weakness Results/Medications Result Diagram: 03/08/17 0430 03/08/17 0430 Results 24 hrs Laboratory Tests Test 03/07/17 12:54 03/07/17 16:52 03/07/17 21:04 03/08/17 01:05 Bedside Glucose 138 187 155 163 Test 03/08/17 04:30 03/08/17 05:08 03/08/17 09:24 White Blood Count 9.1 # Red Blood Count 3.35 L Hemoglobin 10.0 L Hematocrit 32.0 L Mean Corpuscular Volume 95.5 Mean Corpuscular Hemoglobin 29.9 Mean Corpuscular Hemoglobin Concent 31.3 L Red Cell Distribution Width 14.6 H Platelet Count 292 Mean Platelet Volume 10.6 H Neutrophils % 67.3 Lymphocytes % 14.5 L Monocytes % 6.7 Eosinophils % 4.7 Basophils % 0.2 Nucleated Red Blood Cells % 0.0 Neutrophils # 6.1 Lymphocytes # 1.3 Monocytes # 0.6 Eosinophils # 0.4 Basophils # 0.0 Nucleated Red Blood Cells # 0.0 Sodium Level 148 H Potassium Level 3.1 L Chloride Level 110 Carbon Dioxide Level 23 Anion Gap 18 H Blood Urea Nitrogen 10 Creatinine 0.65 Glucose Level 170 Calcium Level 8.7 Phosphorus Level 3.3 Magnesium Level 1.4 L Bedside Glucose 164 140 Medications Current Medications Acetaminophen 650 mg 650 mg Q4H PRN [place] PAIN LEVEL 1-3 OR FEVER; Start 03/02/17 at 00:30 Piperacillin Sod/ Tazobactam Sod (Zosyn 3.375gm/ 100 ml (Pmx)) 100 ml @ 200 mls /hr Q8 IVPB Last administered on 03/08/17 05:31; Admin Dose 200 MLS/HR; Start 03/02/17 at 00:30 Miscellaneous Information 1 ea NOTE XX ; Start 03/02/17 at 00:30 Glucose (Glutose) 15 gm Q15M PRN PO DECREASED GLUCOSE; Start 03/02/17 at 00:30 Glucose (Glutose) 22.5 gm Q15M PRN PO DECREASED GLUCOSE; Start 03/02/17 at 00: 30 Dextrose (D50w Syringe) 25 ml Q15M PRN IV DECREASED GLUCOSE; Start 03/02/17 at 00:30 Dextrose (D50w Syringe) 50 ml Q15M PRN IV DECREASED GLUCOSE; Start 03/02/17 at 00:30 Glucagon (Glucagen) 1 mg Q15M PRN IM DECREASED GLUCOSE; Start 03/02/17 at 00:30 Glucose 15 gm 15 gm Q15M PRN BUCCAL DECREASED GLUCOSE; Start 03/02/17 at 00:30 Fluconazole 100 ml @ 100 mls/hr Q24H IVPB Last administered on 03/08/17 04:32 ; Admin Dose 100 MLS/HR; Start 03/02/17 at 04:00 Propofol (Diprivan) 100 ml @ 2.4 mls/hr Q12H IV Last administered on 16:47; Admin Dose 19.2 MLS/HR; Start 03/02/17 at 05:30 Pantoprazole 40 mg 40 mg BID@06,18 IV Last administered on 03/08/17 05:31; Admin Dose 40 MG; Start 03/04/17 at 06:00 Vancomycin HCl/ Sodium Chloride (Vancocin/NS) 250 ml @ 83.333 mls/ hr Q24H IVPB Last administered on 03/07/17 16:49; Admin Dose 83.333 MLS/HR; Start at 16:00 Insulin Aspart NOVOLOG *MILD* ALGORI... Q4 SC Last administered on 03/08/17 05 :11; Admin Dose 1 UNIT; Start 03/06/17 at 05:00 Norepinephrine/ Dextrose (Levophed/D5W) 500 ml @ 1.87 mls/hr TITRATE IV ; Start 03/06/17 at 07:00 Aspirin (Halfprin) 81 mg DAILY PO ; Start 03/07/17 at 09:00 Atorvastatin Calcium (Lipitor) 40 mg QHS PO ; Start 03/06/17 at 21:00 Diclofenac Sodium (Voltaren) 75 mg DAILY PO ; Start 03/07/17 at 09:00 Donepezil HCl (Aricept) 5 mg QHS PO ; Start 03/06/17 at 21:00 Hydralazine HCl (Apresoline) 10 mg Q6H PRN IV ELEVATED BLOOD PRESSURE Last administered on 03/08/17 02:13; Admin Dose 10 MG; Start 03/07/17 at 09:30 Miscellaneous Information VANCOMYCIN TROUGH LEVEL... ONCE ONCE XX ; Start 03/08 at 15:00; Stop 03/08/17 at 15:01 Dexmedetomidine HCl 200 mcg/ Sodium Chloride 50 ml @ 0 mls/hr TITRATE IV Last administered on 03/08/17 07:13; Admin Dose 27.23 MLS/HR; Start 03/07/17 at 11: 30 Magnesium Sulfate 100 ml @ 25 mls/hr ONCE ONCE IVPB Last administered on 03/08 09:14; Admin Dose 25 MLS/HR; Start 03/08/17 at 08:30; Stop 03/08/17 at 12: 29 Potassium Chloride (KCl 40 MEQ/250 ML NS) 250 ml @ 62.5 mls/hr ONCE ONCE IVPB Last administered on 03/08/17 08:04; Admin Dose 62.5 MLS/HR; Start 03/08/17 at 07:30; Stop 03/08/17 at 11:29 Assessment/Plan Chief Complaint/Hosp Course Chief Complaint/Hosp Course 86-year-old lady presents with increasing shortness of breath orthopnea PND of 2 days duration. On admission she was noted to be markedly labored with subsequent obtunded respiratory status requiring emergent intubation and mechanical ventilation. She had central line placed for hypotension and is now been placed on vasopressors. In addition she has atrial fibrillation requiring initiation of Cardizem drip. More hemodynamically stable today, scheduled for endoscopy. 1. Hypoxemic and hypercapnic respiratory failure likely secondary to community- acquired pneumonia 2. Atrial fibrillation with rapid ventricular rate likely exacerbated by hypoxemia and cardiac ischemia 3. 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 Status post septic shock secondary to above 4. Erosive gastritis on EGD findings. Nasogastric tube has been removed per GI recommendations 6. Delirium. Possible toxic metabolic. Plan 1. Gentle diuresis as tolerated. 2. Broad-spectrum antibiotic coverage 3. Tube feeding on hold following removal of nasogastric tube 4. CPAP weaning trial as tolerated. Hopefully extubate today. 5. Continue insulin as needed. 6. Vasopressor support as needed 7. Trial of Precedex. Disposition Continue ICU care critical care time 40 minutes discussed with primary team and nursing staff Problems: MARY ALY MD, [facility] Mar 08, 2017 10:29
[2017-03-08 12:05] LABS: AADO2 Arterial 122.4 mmHg (7.0-24.0); Allen Test ACCEPTAB; Arterial Base Excess -2.8 mmol/L (-3.0-3); Arterial COHb 0.3 % (0.0-3.0); Arterial Fraction of Oxyhgb 94.2 % (93.0-99.0); Arterial HCO3 22.2 mmol/L (22.0-26.0); Arterial MetHb 0.3 % (0.0-1.5); Arterial Total Hemglobin 11.3 g/dl (12.0-18.0); Blood Gas PS 10; MODE VENT - CPAP
[2017-03-08] MEDS: DEXTROSE 5% 1,000 ML IV SCH (14:35)
[2017-03-08 14:38] LABS: CALCIUM 8.7 mg/dl (8.4-10.2); CREATININE 0.65 mg/dl (0.44-1.00); MAGNESIUM 2.9 mg/dl (1.7-2.5); POTASSIUM 3.9 mmol/L (3.5-5.1)
--- NOTE | 2017-03-08 15:13 | PN ---
Date/Time of Note Date/Time of Note DATE: 03/08/17 TIME: 15:10 Assessment/Plan VTE Prophylaxis VTE Prophylaxis Intervention: SCD's Lines/Catheters IV Catheter Type (from Nrs): Central Line Central line still needed: Yes Urinary Cath still in place: Yes Reason Cath still needed: urinary retention Assessment/Plan Assessment/Plan Assessment * Coffee ground emesis EGD 03/04/2017 Erosive esophagitis Erosive gastritis, NG tube trauma Nodular gastritis. Biopsies obtained * Sepsis * Acute respiratory failure managed by pulmonary Plan * Continue present regimen * Monitor hemoglobin and hematocrit, transfuse as necessary. * Case discussed with Dr Cormier * Further orders will depend on clinical course Subjective 24 Hr Interval Summary Free Text/Dictation * Course reviewed with RN * Patient seen and examined * Patient extubated Exam/Review of Systems Vital Signs Vitals Vital Signs Date Time Temp Pulse Resp B/P Pulse Ox O2 Delivery O2 Flow Rate FiO2 03/08/17 14:00 57 12 101/44 94 CPAP 03/08/17 12:00 35 03/08/17 12:00 97.5 Intake and Output 03/07/17 03/07/17 03/08/17 15:00 23:00 07:00 Intake Total 229.6 ml 428.12 ml 175 ml Output Total 820 ml 935 ml 700 ml Balance -590.4 ml -506.88 ml -525 ml Exam Constitutional: alert, frail Head: normocephalic Neck: non-tender, supple Respiratory: diminished breath sounds, normal air movement Cardiovascular: nl pulses, regular rate and rhythm Gastrointestinal: distended, non-tender, soft Musculoskeletal: muscle weakness Extremities: normal pulses Neurological: confused Skin: nl turgor Lymph: nl lymph nodes Results Result Diagram: 03/08/17 0430 03/08/17 1330 Results 24 hrs Laboratory Tests Test 03/07/17 16:52 03/07/17 21:04 03/08/17 01:05 03/08/17 04:30 Bedside Glucose 187 155 163 White Blood Count 9.1 # Red Blood Count 3.35 L Hemoglobin 10.0 L Hematocrit 32.0 L Mean Corpuscular Volume 95.5 Mean Corpuscular Hemoglobin 29.9 Mean Corpuscular Hemoglobin Concent 31.3 L Red Cell Distribution Width 14.6 H Platelet Count 292 Mean Platelet Volume 10.6 H Neutrophils % 67.3 Lymphocytes % 14.5 L Monocytes % 6.7 Eosinophils % 4.7 Basophils % 0.2 Nucleated Red Blood Cells % 0.0 Neutrophils # 6.1 Lymphocytes # 1.3 Monocytes # 0.6 Eosinophils # 0.4 Basophils # 0.0 Nucleated Red Blood Cells # 0.0 Sodium Level 148 H Potassium Level 3.1 L Chloride Level 110 Carbon Dioxide Level 23 Anion Gap 18 H Blood Urea Nitrogen 10 Creatinine 0.65 Glucose Level 170 Calcium Level 8.7 Phosphorus Level 3.3 Magnesium Level 1.4 L Test 03/08/17 05:08 03/08/17 09:24 03/08/17 11:40 03/08/17 12:49 Bedside Glucose 164 140 154 Blood Gas Specimen Source Blood arterial Arterial Blood Date Drawn 03/08/2017 11:50:47 AM Arterial Blood pH (Temp corrected) 7.366 Arterial Blood pCO2 (Temp correct) 39.7 Arterial Blood pO2 (Temp corrected) 81.0 Arterial Blood HCO3 22.2 Arterial Blood Base Excess -2.8 Arterial Blood Oxygen Saturation 94.8 L Pablo Test ACCEPTAB Arterial Blood Gas Puncture Site Right Radial Arterial Blood Carboxyhemoglobin 0.3 Arterial Blood Methemoglobin 0.3 Blood Gas A-a O2 Differential 122.4 H Oxyhemoglobin Percent 94.2 Total Hemoglobin 11.3 L Blood Gas Temperature 37.0 Blood Gas Actual Respiration Rate 13 Blood Gas Modality VENT - CPAP FiO2 35.0 Blood Gas Low PEEP Setting 5.0 Blood Gas Pressure Support 10 Blood Gas Notified Whom JLD Blood Gas Notified Time 03/08/2017 12:05:18 PM Test 03/08/17 13:30 Sodium Level 147 H Potassium Level 3.9 Chloride Level 109 Carbon Dioxide Level 25 Anion Gap 17 H Blood Urea Nitrogen 11 Creatinine 0.65 Glucose Level 138 Calcium Level 8.7 Magnesium Level 2.9 #H Medications Medications Current Medications Acetaminophen 650 mg 650 mg Q4H PRN [place] PAIN LEVEL 1-3 OR FEVER; Start 03/02/17 at 00:30 Piperacillin Sod/ Tazobactam Sod (Zosyn 3.375gm/ 100 ml (Pmx)) 100 ml @ 200 mls /hr Q8 IVPB Last administered on 03/08/17t 14:05; Admin Dose 200 MLS/HR; Start 03/02/17 at 00:30 Miscellaneous Information 1 ea NOTE XX ; Start 03/02/17 at 00:30 Glucose (Glutose) 15 gm Q15M PRN PO DECREASED GLUCOSE; Start 03/02/17 at 00:30 Glucose (Glutose) 22.5 gm Q15M PRN PO DECREASED GLUCOSE; Start 03/02/17 at 00: 30 Dextrose (D50w Syringe) 25 ml Q15M PRN IV DECREASED GLUCOSE; Start 03/02/17 at 00:30 Dextrose (D50w Syringe) 50 ml Q15M PRN IV DECREASED GLUCOSE; Start 03/02/17 at 00:30 Glucagon (Glucagen) 1 mg Q15M PRN IM DECREASED GLUCOSE; Start 03/02/17 at 00:30 Glucose 15 gm 15 gm Q15M PRN BUCCAL DECREASED GLUCOSE; Start 03/02/17 at 00:30 Fluconazole 100 ml @ 100 mls/hr Q24H IVPB Last administered on 03/08/17 04:32 ; Admin Dose 100 MLS/HR; Start 03/02/17 at 04:00 Propofol (Diprivan) 100 ml @ 2.4 mls/hr Q12H IV Last administered on 16:47; Admin Dose 19.2 MLS/HR; Start 03/02/17 at 05:30 Pantoprazole 40 mg 40 mg BID@06,18 IV Last administered on 03/08/17 05:31; Admin Dose 40 MG; Start 03/04/17 at 06:00 Vancomycin HCl/ Sodium Chloride (Vancocin/NS) 250 ml @ 83.333 mls/ hr Q24H IVPB Last administered on 03/07/17 16:49; Admin Dose 83.333 MLS/HR; Start at 16:00 Insulin Aspart NOVOLOG *MILD* ALGORI... Q4 SC Last administered on 03/08/17 12 :52; Admin Dose 1 UNIT; Start 03/06/17 at 05:00 Norepinephrine/ Dextrose (Levophed/D5W) 500 ml @ 1.87 mls/hr TITRATE IV ; Start 03/06/17 at 07:00 Aspirin (Halfprin) 81 mg DAILY PO ; Start 03/07/17 at 09:00 Atorvastatin Calcium (Lipitor) 40 mg QHS PO ; Start 03/06/17 at 21:00 Diclofenac Sodium (Voltaren) 75 mg DAILY PO ; Start 03/07/17 at 09:00 Donepezil HCl (Aricept) 5 mg QHS PO ; Start 03/06/17 at 21:00 Hydralazine HCl 10 mg 10 mg Q6H PRN IV ELEVATED BLOOD PRESSURE Last administered on 03/08/17 02:13; Admin Dose 10 MG; Start 03/07/17 at 09:30 Dexmedetomidine HCl 200 mcg/ Sodium Chloride 50 ml @ 0 mls/hr TITRATE IV Last administered on 03/08/17 12:42; Admin Dose 3.89 MLS/HR; Start 03/07/17 at 11:30 Dextrose (D5W) 1,000 ml @ 75 mls/hr [id number] IV Last administered on 03/08/17 14:35; Admin Dose 75 MLS/HR; Start 03/08/17 at 14:30 NATALIIA YAN NP Mar 08, 2017 15:12
--- NOTE | 2017-03-08 16:43 | CONS ---
Date/Time of Note Date/Time of Note DATE: 03/08/17 TIME: 16:40 Assessment/Plan Assessment/Plan Chief Complaint/Hosp Course No acute changes, patient was extubated, looks comfortable on nasal cannula Temperature 97.5 pulse 90 respirations 20 blood pressure 95/41 saturation 92% WBC 9.1 H&H 10 and 32 platelets 292 no shift BUN 11 creatinine 0.65 Indwelling: Pierce catheter, left subclavian triple-lumen catheter Antibiotics: Vancomycin, fluconazole, Zosyn day #8 Physical examination: Chronically ill-appearing elderly woman who is in no distress status post extubation. Head atraumatic normocephalic sclera nonicteric bugle mucosa dry. Neck is supple, trachea midline. Chest rise symmetrical breath sounds with scattered rhonchi. S1-S2. Abdomen soft bowel tones present. Extremities with trace edema. Assessment: 1. Status post septic shock 2. Pneumonia possibly aspiration 3. Acute respiratory failure 4. Diabetes 5. Non-ST elevation [place] Plan: Remains hemodynamically stable, continue present care, anti-aspiration measures, follow cardiology/pulmonary recommendations, DC vancomycin and Diflucan Discussed with RN Problems: Consultation Date/Type/Reason Admit Date/Time Mar 01, 2017 at 20:20 Initial Consult Date 03/02/17 Type of Consultation: id Referring Provider: MICHELLE MOERNO Exam/Review of Systems Vital Signs Vitals Vital Signs Date Time Temp Pulse Resp B/P Pulse Ox O2 Delivery O2 Flow Rate FiO2 03/08/17 16:00 79 03/08/17 15:30 21 92 03/08/17 15:20 4.0 03/08/17 15:00 95/41 CPAP 03/08/17 13:05 35 03/08/17 12:00 97.5 Intake and Output 03/07/17 03/07/17 03/08/17 15:00 23:00 07:00 Intake Total 229.6 ml 428.12 ml 175 ml Output Total 820 ml 935 ml 700 ml Balance -590.4 ml -506.88 ml -525 ml Results Result Diagram: 03/08/17 0430 03/08/17 1330 Results 24 hrs Laboratory Tests Test 03/07/17 16:52 03/07/17 21:04 03/08/17 01:05 03/08/17 04:30 Bedside Glucose 187 155 163 White Blood Count 9.1 # Red Blood Count 3.35 L Hemoglobin 10.0 L Hematocrit 32.0 L Mean Corpuscular Volume 95.5 Mean Corpuscular Hemoglobin 29.9 Mean Corpuscular Hemoglobin Concent 31.3 L Red Cell Distribution Width 14.6 H Platelet Count 292 Mean Platelet Volume 10.6 H Neutrophils % 67.3 Lymphocytes % 14.5 L Monocytes % 6.7 Eosinophils % 4.7 Basophils % 0.2 Nucleated Red Blood Cells % 0.0 Neutrophils # 6.1 Lymphocytes # 1.3 Monocytes # 0.6 Eosinophils # 0.4 Basophils # 0.0 Nucleated Red Blood Cells # 0.0 Sodium Level 148 H Potassium Level 3.1 L Chloride Level 110 Carbon Dioxide Level 23 Anion Gap 18 H Blood Urea Nitrogen 10 Creatinine 0.65 Glucose Level 170 Calcium Level 8.7 Phosphorus Level 3.3 Magnesium Level 1.4 L Test 03/08/17 05:08 03/08/17 09:24 03/08/17 11:40 03/08/17 12:49 Bedside Glucose 164 140 154 Blood Gas Specimen Source Blood arterial Arterial Blood Date Drawn 03/08/2017 11:50:47 AM Arterial Blood pH (Temp corrected) 7.366 Arterial Blood pCO2 (Temp correct) 39.7 Arterial Blood pO2 (Temp corrected) 81.0 Arterial Blood HCO3 22.2 Arterial Blood Base Excess -2.8 Arterial Blood Oxygen Saturation 94.8 L Pablo Test ACCEPTAB Arterial Blood Gas Puncture Site Right Radial Arterial Blood Carboxyhemoglobin 0.3 Arterial Blood Methemoglobin 0.3 Blood Gas A-a O2 Differential 122.4 H Oxyhemoglobin Percent 94.2 Total Hemoglobin 11.3 L Blood Gas Temperature 37.0 Blood Gas Actual Respiration Rate 13 Blood Gas Modality VENT - CPAP FiO2 35.0 Blood Gas Low PEEP Setting 5.0 Blood Gas Pressure Support 10 Blood Gas Notified Whom JLD Blood Gas Notified Time 03/08/2017 12:05:18 PM Test 03/08/17 13:30 03/08/17 15:15 Sodium Level 147 H Potassium Level 3.9 Chloride Level 109 Carbon Dioxide Level 25 Anion Gap 17 H Blood Urea Nitrogen 11 Creatinine 0.65 Glucose Level 138 Calcium Level 8.7 Magnesium Level 2.9 #H Vancomycin Level Trough 13.1 Medications Medications Current Medications Acetaminophen 650 mg 650 mg Q4H PRN [place] PAIN LEVEL 1-3 OR FEVER; Start 03/02/17 at 00:30 Piperacillin Sod/ Tazobactam Sod (Zosyn 3.375gm/ 100 ml (Pmx)) 100 ml @ 200 mls /hr Q8 IVPB Last administered on 03/08/17 14:05; Admin Dose 200 MLS/HR; Start 03/02/17 at 00:30 Miscellaneous Information 1 ea NOTE XX ; Start 03/02/17 at 00:30 Glucose (Glutose) 15 gm Q15M PRN PO DECREASED GLUCOSE; Start 03/02/17 at 00:30 Glucose (Glutose) 22.5 gm Q15M PRN PO DECREASED GLUCOSE; Start 03/02/17 at 00: 30 Dextrose (D50w Syringe) 25 ml Q15M PRN IV DECREASED GLUCOSE; Start 03/02/17 at 00:30 Dextrose (D50w Syringe) 50 ml Q15M PRN IV DECREASED GLUCOSE; Start 03/02/17 at 00:30 Glucagon (Glucagen) 1 mg Q15M PRN IM DECREASED GLUCOSE; Start 03/02/17 at 00:30 Glucose 15 gm 15 gm Q15M PRN BUCCAL DECREASED GLUCOSE; Start 03/02/17 at 00:30 Fluconazole 100 ml @ 100 mls/hr Q24H IVPB Last administered on 03/08/17 04:32 ; Admin Dose 100 MLS/HR; Start 03/02/17 at 04:00 Propofol (Diprivan) 100 ml @ 2.4 mls/hr Q12H IV Last administered on 16:47; Admin Dose 19.2 MLS/HR; Start 03/02/17 at 05:30 Pantoprazole 40 mg 40 mg BID@06,18 IV Last administered on 03/08/17 05:31; Admin Dose 40 MG; Start 03/04/17 at 06:00 Vancomycin HCl/ Sodium Chloride (Vancocin/NS) 250 ml @ 83.333 mls/ hr Q24H IVPB Last administered on 03/07/17 16:49; Admin Dose 83.333 MLS/HR; Start at 16:00 Insulin Aspart NOVOLOG *MILD* ALGORI... Q4 SC Last administered on 03/08/17 12 :52; Admin Dose 1 UNIT; Start 03/06/17 at 05:00 Norepinephrine/ Dextrose (Levophed/D5W) 500 ml @ 1.87 mls/hr TITRATE IV ; Start 03/06/17 at 07:00 Aspirin (Halfprin) 81 mg DAILY PO ; Start 03/07/17 at 09:00 Atorvastatin Calcium (Lipitor) 40 mg QHS PO ; Start 03/06/17 at 21:00 Diclofenac Sodium (Voltaren) 75 mg DAILY PO ; Start 03/07/17 at 09:00 Donepezil HCl (Aricept) 5 mg QHS PO ; Start 03/06/17 at 21:00 Hydralazine HCl 10 mg 10 mg Q6H PRN IV ELEVATED BLOOD PRESSURE Last administered on 03/08/17 02:13; Admin Dose 10 MG; Start 03/07/17 at 09:30 Dexmedetomidine HCl 200 mcg/ Sodium Chloride 50 ml @ 0 mls/hr TITRATE IV Last administered on 03/08/17 12:42; Admin Dose 3.89 MLS/HR; Start 03/07/17 at 11:30 Dextrose (D5W) 1,000 ml @ 75 mls/hr [id number] IV Last administered on 03/08/17 14:35; Admin Dose 75 MLS/HR; Start 03/08/17 at 14:30 HAO CUTLER NP Mar 08, 2017 16:43
[2017-03-08] MEDS: DONEPEZIL 5 MG TAB PO SCH (21:00)
[2017-03-08] MEDS: ATORVASTATIN 40 MG TAB PO SCH (21:00)
[2017-03-08] MEDS ORDERED: LORAZEPAM 2 MG INJ IV ONE (23:30)
[2017-03-09] VITALS (31 sets, daily range): BP systolic 84–162; BP diastolic 45–96; PULSE 90–133; RESP 12–43
[2017-03-09] MEDS ORDERED: AMIODARONE 150MG/D5W BOLUS 100 ML IV ONE
[2017-03-09] MEDS ORDERED: LORAZEPAM 2 MG INJ IV ONE
[2017-03-09] MEDS ORDERED: AMIODARONE 900 MG in DEXTROSE 5% 482 ML IV SCH (00:10)
[2017-03-09 01:00] LABS: MAGNESIUM 1.9 mg/dl (1.7-2.5)
[2017-03-09 01:01] LABS: CALCIUM 8.8 mg/dl (8.4-10.2); CREATININE 0.7 mg/dl (0.44-1.00); POTASSIUM 3.4 mmol/L (3.5-5.1)
[2017-03-09] MEDS ORDERED: POTASSIUM CHLORIDE 20 MEQ in SOD CHLORIDE 0.9% 100 ML IVPB ONE ×2 (01:30→02:00)
[2017-03-09] MEDS: INSULIN ASPART [NOVOLOG] 3 ML PEN SC SCH ×6 (01:54→21:25)
[2017-03-09] MEDS ORDERED: LEVALBUTEROL (NEB) 0.63 MG/3 ML AMP ONE (03:56)
[2017-03-09] MEDS ORDERED: IPRATROPIUM (NEB) 0.5 MG/2.5 ML AMP ONE (03:57)
[2017-03-09] MEDS: IPRATROPIUM (NEB) 0.5 MG/2.5 ML AMP HHN PRN ×2 (04:05→17:15)
[2017-03-09] MEDS: LEVALBUTEROL (NEB) 0.63 MG/3 ML AMP HHN PRN ×2 (04:05→17:15)
[2017-03-09] MEDS: DEXTROSE 5% 1,000 ML IV SCH ×3 (04:09→21:34)
[2017-03-09] MEDS: PANTOPRAZOLE 40 MG INJ IV SCH ×2 (05:23→18:09)
[2017-03-09] MEDS: PIPER-TAZO 3.375 GM IV (PMX) 100 ML IVPB SCH ×3 (05:23→21:39)
--- NOTE | 2017-03-09 07:15 | PN ---
Date/Time of Note Date/Time of Note DATE: 03/09/17 TIME: 07:10 Assessment/Plan VTE Prophylaxis VTE Prophylaxis Intervention: other Lines/Catheters IV Catheter Type (from Nrs): Central Line Central line still needed: Yes Urinary Cath still in place: Yes Reason Cath still needed: other (indicate) Assessment/Plan Chief Complaint/Hosp Course 1. P afib with RVR: currently remains in NSR 2. acute hypoxemic respiratory failure: extubated now 3. + troponin: c.w NSTEMI due to demand ischemia due to above 4. DM and severely elevated glucose: controlled with insulin 5. dyslipidemia 6. pneumonia/ sepsis 7. shock : appear to be related to sepsis: currently still on levophed 8. hx memory impairment 9. anemia and GI bleed: stable now RESUME ASA off of plavix due to above off of cardizem drip unable to take any po meds now. will start po betablocker once able to take po meds DM Control with insulin echo shows normal EF replace lytes including K and Mg prn. Problems: Subjective 24 Hr Interval Summary Free Text/Dictation Free Text/Dictation CARDIOLOGY FOLLOW UP NOTE/ critical care note d/w staff in ICU and rhythm was reviewed. pt remains in NSR/ SINUS Bhaskar and frequent PVC/ PAC. pt with more Afib noted. started back on amiodarone and now back in NSR pt is EXTUBATED 03/08 no more bleeding is reported. she denies any chest pain to me OBJECTIVE: General: drowsy but no acute distress HEENT: NC/AT. pupils are constricted. round. NECK: NO JVD. no stridor. CV: RRR. systolic murmur; no gallop or rubs. PULM: no wheezing or rhonchi. GI: SOFT, NT, ND, no rebound or guarding Extremity: trace B/L LE edema. no clubbing. neuro: awake and Ox 2. moves all extremities. Psych: calm, rectal: deferred : normal ECHO personally reviewed: 1. Normal left ventricular systolic function. Normal left ventricular cavity size. Mild concentric left ventricular hypertrophy. Ejection fraction is visually estimated at 55 %. Tissue Doppler/Mitral Doppler indices are consistent with impaired relaxation (Stage I diastolic dysfunction). 2. The left atrium is normal in size. 3. Mitral valve leaflets appear mildly thickened. Mild mitral annular calcification. Trace mitral regurgitation. 4. No significant aortic stenosis or insufficiency. Aortic sclerosis without stenosis. 5. Normal appearance of the tricuspid valve. Estimated peak PA systolic pressure 26 mmHg. There is mild tricuspid regurgitation. Exam/Review of Systems Vital Signs Vitals Vital Signs Date Time Temp Pulse Resp B/P Pulse Ox O2 Delivery O2 Flow Rate FiO2 03/09/17 06:00 120 24 146/64 91 03/09/17 05:40 4.0 03/09/17 04:03 Nasal Cannula 03/09/17 04:00 97.6 03/08/17 13:05 35 Intake and Output 03/08/17 03/08/17 03/09/17 15:00 23:00 07:00 Intake Total 525.90 ml 225 ml Output Total 360 ml 225 ml 500 ml Balance 165.90 ml 0 ml -500 ml Results Result Diagram: 03/08/17 0430 03/09/17 0015 Results 24 hrs Laboratory Tests Test 03/08/17 09:24 03/08/17 11:40 03/08/17 12:49 03/08/17 13:30 Bedside Glucose 140 154 Blood Gas Specimen Source Blood arterial Arterial Blood Date Drawn 03/08/2017 11:50:47 AM Arterial Blood pH (Temp corrected) 7.366 Arterial Blood pCO2 (Temp correct) 39.7 Arterial Blood pO2 (Temp corrected) 81.0 Arterial Blood HCO3 22.2 Arterial Blood Base Excess -2.8 Arterial Blood Oxygen Saturation 94.8 L Pablo Test ACCEPTAB Arterial Blood Gas Puncture Site Right Radial Arterial Blood Carboxyhemoglobin 0.3 Arterial Blood Methemoglobin 0.3 Blood Gas A-a O2 Differential 122.4 H Oxyhemoglobin Percent 94.2 Total Hemoglobin 11.3 L Blood Gas Temperature 37.0 Blood Gas Actual Respiration Rate 13 Blood Gas Modality VENT - CPAP FiO2 35.0 Blood Gas Low PEEP Setting 5.0 Blood Gas Pressure Support 10 Blood Gas Notified Whom JLD Blood Gas Notified Time 03/08/2017 12:05:18 PM Sodium Level 147 H Potassium Level 3.9 Chloride Level 109 Carbon Dioxide Level 25 Anion Gap 17 H Blood Urea Nitrogen 11 Creatinine 0.65 Glucose Level 138 Calcium Level 8.7 Magnesium Level 2.9 #H Test 03/08/17 15:15 03/08/17 21:10 03/09/17 00:15 03/09/17 01:50 Vancomycin Level Trough 13.1 Bedside Glucose 159 208 Sodium Level 146 H Potassium Level 3.4 L Chloride Level 106 Carbon Dioxide Level 27 Anion Gap 16 Blood Urea Nitrogen 9 Creatinine 0.70 Glucose Level 202 Calcium Level 8.8 Phosphorus Level 4.0 Magnesium Level 1.9 Test 03/09/17 05:07 Bedside Glucose 202 Medications Medications Current Medications Acetaminophen 650 mg 650 mg Q4H PRN [place] PAIN LEVEL 1-3 OR FEVER; Start 03/02/17 at 00:30 Piperacillin Sod/ Tazobactam Sod (Zosyn 3.375gm/ 100 ml (Pmx)) 100 ml @ 200 mls /hr Q8 IVPB Last administered on 03/09/17 05:23; Admin Dose 200 MLS/HR; Start 03/02/17 at 00:30 Miscellaneous Information 1 ea NOTE XX ; Start 03/02/17 at 00:30 Glucose (Glutose) 15 gm Q15M PRN PO DECREASED GLUCOSE; Start 03/02/17 at 00:30 Glucose (Glutose) 22.5 gm Q15M PRN PO DECREASED GLUCOSE; Start 03/02/17 at 00: 30 Dextrose (D50w Syringe) 25 ml Q15M PRN IV DECREASED GLUCOSE; Start 03/02/17 at 00:30 Dextrose (D50w Syringe) 50 ml Q15M PRN IV DECREASED GLUCOSE; Start 03/02/17 at 00:30 Glucagon (Glucagen) 1 mg Q15M PRN IM DECREASED GLUCOSE; Start 03/02/17 at 00:30 Glucose (Glutose) 15 gm Q15M PRN BUCCAL DECREASED GLUCOSE; Start 03/02/17 at 00 :30 Pantoprazole (Protonix Iv) 40 mg BID@06,18 IV Last administered on 03/09/17 05 :23; Admin Dose 40 MG; Start 03/04/17 at 06:00 Insulin Aspart NOVOLOG *MILD* ALGORI... Q4 SC Last administered on 03/09/17 05 :30; Admin Dose 2 UNIT; Start 03/06/17 at 05:00 Norepinephrine/ Dextrose (Levophed/D5W) 500 ml @ 1.87 mls/hr TITRATE IV ; Start 03/06/17 at 07:00 Aspirin (Halfprin) 81 mg DAILY PO ; Start 03/07/17 at 09:00 Atorvastatin Calcium (Lipitor) 40 mg QHS PO ; Start 03/06/17 at 21:00 Diclofenac Sodium (Voltaren) 75 mg DAILY PO ; Start 03/07/17 at 09:00 Donepezil HCl (Aricept) 5 mg QHS PO ; Start 03/06/17 at 21:00 Hydralazine HCl 10 mg 10 mg Q6H PRN IV ELEVATED BLOOD PRESSURE Last administered on 03/08/17 02:13; Admin Dose 10 MG; Start 03/07/17 at 09:30 Dextrose 1,000 ml @ 75 mls/hr [id number] IV Last administered on 03/09/17 04:09 ; Admin Dose 75 MLS/HR; Start 03/08/17 at 14:30 Potassium Chloride 250 ml @ 62.5 mls/hr ONCE ONCE IVPB ; Start 03/09/17 at 07: 30; Stop 03/09/17 at 11:29; Status UNV Magnesium Sulfate (Magnesium Sulfate 2 Gm/50 ml) 50 ml @ 25 mls/hr ONCE ONCE IVPB ; Start 03/09/17 at 07:30; Stop 03/09/17 at 09:29; Status UNV TYREE MCKOY MD Mar 09, 2017 07:14
[2017-03-09] MEDS ORDERED: POTASSIUM CHLORIDE 250 ML IVPB ONE (07:30)
[2017-03-09] MEDS ORDERED: MAGNESIUM SULFATE 2 GM/50 ML 50 ML IVPB ONE (07:30)
[2017-03-09] MEDS: ASPIRIN 300 MG SUPP PR SCH (08:47)
[2017-03-09] MEDS: ASPIRIN (EC) 81 MG TAB PO SCH (08:58)
[2017-03-09] MEDS: DICLOFENAC (EC) 75 MG TAB PO SCH (08:59)
[2017-03-09] MEDS: METOPROLOL 25 MG TAB PO SCH ×2 (08:59→20:50)
--- NOTE | 2017-03-09 09:08 | PN ---
Date/Time of Note Date/Time of Note DATE: 03/09/17 TIME: 09:05 Assessment/Plan VTE Prophylaxis VTE Prophylaxis Intervention: SCD's Lines/Catheters IV Catheter Type (from Nrs): Central Line Central line still needed: Yes Urinary Cath still in place: Yes Reason Cath still needed: urinary retention Assessment/Plan Chief Complaint/Hosp Course Assessment/Plan: 86 yo F with dementia admitted from facility for acute hypoxic respiratory failure and sepsis: likely 2/2 aspiration pneumonia 1. acute hypoxic respiratory failure: 2/2 aspiration pna, now extubated yesterday f/u pulmonology rec's, abx, duoneb's prn 2. Severe sepsis: from aspiration pna, ID following. Likely secondary to respiratory infection. Off pressors now Continue IV vancomycin and Zosyn per ID rec's 3. Tachycardia: Likely secondary to #2 and #1, per CV team,had afib with RVR again last night for now, continue amio IV per CV rec's - monitor 4. suspected fungal esophagitis: Continue IV fluconazole. (defer to ID) 5. diabetes mellitus: Continue insulin sliding scale. resume basal insulin once pt taking PO again 6. History of essential hypertension: ARB on hold 7. Questionable GI bleed: sp EGD 7.15 , +gastritis - f/u GI rec's, continue PPI IV - avoid NG tube for now unless absolutely necessary 8. DVT and GI prophylaxis: SCDs, Protonix 9. thyroid - 7.13 labs notable for hyperthyroid (TSH low, t4 high)-->consider post discharge fu with PCP 10. hypernatremia - mildly elevated (146 -> 148 -> 146) -continue D5W IV for now 11. low electrolytes: Replete as needed Code status: unfortunately pt with dementia and no advanced directive or family. Given aspiration most likely 2/2 dementia for which there is no cure, suspect aspiration will occur again. Appreciate palliative team consult, they will try to contact family members [place]. critical care time: 40 minutes Problems: Subjective 24 Hr Interval Summary Free Text/Dictation Pt had afib w/RVR. Back on amiodarone now. Extubated yesterday, but did not pass swallow eval. Exam/Review of Systems Vital Signs Vitals Vital Signs Date Time Temp Pulse Resp B/P Pulse Ox O2 Delivery O2 Flow Rate FiO2 03/09/17 06:00 120 24 146/64 91 03/09/17 05:40 4.0 03/09/17 04:03 Nasal Cannula 03/09/17 04:00 97.6 03/08/17 13:05 35 Intake and Output 03/08/17 03/08/17 03/09/17 14:59 22:59 06:59 Intake Total 490.90 ml 260 ml Output Total 385 ml 300 ml 500 ml Balance 105.90 ml -40 ml -500 ml Exam GENERAL: Elderly lady lying in bed. NAD presently HEENT: Pupils equal, round, and reactive to light. CARDIAC: S1, S2, 1/6 systolic ejection murmur CHEST: some diminished air entry bilaterally. ABDOMEN: Mildly distended. Bowel sounds present no guarding or rebound EXTREMITIES: No cyanosis, clubbing edema +1 NEUROLOGIC: Generalized weakness+ Results Result Diagram: 03/08/17 0430 03/09/17 0015 Results 24 hrs Laboratory Tests Test 03/08/17 09:24 03/08/17 11:40 03/08/17 12:49 03/08/17 13:30 Bedside Glucose 140 154 Blood Gas Specimen Source Blood arterial Arterial Blood Date Drawn 03/08/2017 11:50:47 AM Arterial Blood pH (Temp corrected) 7.366 Arterial Blood pCO2 (Temp correct) 39.7 Arterial Blood pO2 (Temp corrected) 81.0 Arterial Blood HCO3 22.2 Arterial Blood Base Excess -2.8 Arterial Blood Oxygen Saturation 94.8 L Pablo Test ACCEPTAB Arterial Blood Gas Puncture Site Right Radial Arterial Blood Carboxyhemoglobin 0.3 Arterial Blood Methemoglobin 0.3 Blood Gas A-a O2 Differential 122.4 H Oxyhemoglobin Percent 94.2 Total Hemoglobin 11.3 L Blood Gas Temperature 37.0 Blood Gas Actual Respiration Rate 13 Blood Gas Modality VENT - CPAP FiO2 35.0 Blood Gas Low PEEP Setting 5.0 Blood Gas Pressure Support 10 Blood Gas Notified Whom JLD Blood Gas Notified Time 03/08/2017 12:05:18 PM Sodium Level 147 H Potassium Level 3.9 Chloride Level 109 Carbon Dioxide Level 25 Anion Gap 17 H Blood Urea Nitrogen 11 Creatinine 0.65 Glucose Level 138 Calcium Level 8.7 Magnesium Level 2.9 #H Test 03/08/17 15:15 03/08/17 21:10 03/09/17 00:15 03/09/17 01:50 Vancomycin Level Trough 13.1 Bedside Glucose 159 208 Sodium Level 146 H Potassium Level 3.4 L Chloride Level 106 Carbon Dioxide Level 27 Anion Gap 16 Blood Urea Nitrogen 9 Creatinine 0.70 Glucose Level 202 Calcium Level 8.8 Phosphorus Level 4.0 Magnesium Level 1.9 Test 03/09/17 05:07 Bedside Glucose 202 Medications Medications Current Medications Acetaminophen 650 mg 650 mg Q4H PRN [place] PAIN LEVEL 1-3 OR FEVER; Start 03/02/17 at 00:30 Piperacillin Sod/ Tazobactam Sod (Zosyn 3.375gm/ 100 ml (Pmx)) 100 ml @ 200 mls /hr Q8 IVPB Last administered on 03/09/17 05:23; Admin Dose 200 MLS/HR; Start 03/02/17 at 00:30 Miscellaneous Information 1 ea NOTE XX ; Start 03/02/17 at 00:30 Glucose (Glutose) 15 gm Q15M PRN PO DECREASED GLUCOSE; Start 03/02/17 at 00:30 Glucose (Glutose) 22.5 gm Q15M PRN PO DECREASED GLUCOSE; Start 03/02/17 at 00: 30 Dextrose (D50w Syringe) 25 ml Q15M PRN IV DECREASED GLUCOSE; Start 03/02/17 at 00:30 Dextrose (D50w Syringe) 50 ml Q15M PRN IV DECREASED GLUCOSE; Start 03/02/17 at 00:30 Glucagon (Glucagen) 1 mg Q15M PRN IM DECREASED GLUCOSE; Start 03/02/17 at 00:30 Glucose (Glutose) 15 gm Q15M PRN BUCCAL DECREASED GLUCOSE; Start 03/02/17 at 00 :30 Pantoprazole (Protonix Iv) 40 mg BID@06,18 IV Last administered on 03/09/17 05 :23; Admin Dose 40 MG; Start 03/04/17 at 06:00 Insulin Aspart NOVOLOG *MILD* ALGORI... Q4 SC Last administered on 03/09/17 05 :30; Admin Dose 2 UNIT; Start 03/06/17 at 05:00 Norepinephrine/ Dextrose (Levophed/D5W) 500 ml @ 1.87 mls/hr TITRATE IV ; Start 03/06/17 at 07:00 Aspirin (Halfprin) 81 mg DAILY PO ; Start 03/07/17 at 09:00 Atorvastatin Calcium (Lipitor) 40 mg QHS PO ; Start 03/06/17 at 21:00 Diclofenac Sodium (Voltaren) 75 mg DAILY PO ; Start 03/07/17 at 09:00 Donepezil HCl (Aricept) 5 mg QHS PO ; Start 03/06/17 at 21:00 Hydralazine HCl 10 mg 10 mg Q6H PRN IV ELEVATED BLOOD PRESSURE Last administered on 03/08/17 02:13; Admin Dose 10 MG; Start 03/07/17 at 09:30 Dextrose 1,000 ml @ 75 mls/hr [id number] IV Last administered on 03/09/17 04:09 ; Admin Dose 75 MLS/HR; Start 03/08/17 at 14:30 Potassium Chloride 250 ml @ 62.5 mls/hr ONCE ONCE IVPB Last administered on 08:23; Admin Dose 62.5 MLS/HR; Start 03/09/17 at 07:30; Stop 03/09/17 at 11:29 Magnesium Sulfate (Magnesium Sulfate 2 Gm/50 ml) 50 ml @ 25 mls/hr ONCE ONCE IVPB Last administered on 03/09/17 08:26; Admin Dose 25 MLS/HR; Start at 07:30; Stop 03/09/17 at 09:29 Aspirin (Aspirin) 300 mg DAILY [place] Last administered on 03/09/17 08:47; Admin Dose 300 MG; Start 03/09/17 at 09:00 Metoprolol Tartrate (Lopressor) 25 mg BID PO ; Start 03/09/17 at 09:00 FERNANDO DIMAS 19, 2017 09:08
--- NOTE | 2017-03-09 10:16 | CONS ---
Date/Time of Note Date/Time of Note DATE: 03/09/17 TIME: 10:15 Assessment/Plan Assessment/Plan Chief Complaint/Hosp Course Patient was started on amiodarone drip last night for rapid atrial fibrillation , currently rate controlled, she is awake, confused, looks comfortable on nasal cannula, failed swallow evaluation Temperature 97.6 pulse 99 respirations 20 blood pressure 136/56 saturation 98 on 4 L Sodium 146 BN 9 creatinine 0.70 Antimicrobials: Zosyn, status post vancomycin fluconazole Indwelling: Pierce catheter, left subclavian triple-lumen catheter Antibiotics: Zosyn day #9 Physical examination: Chronically ill-appearing elderly woman who is in no distress. Head atraumatic normocephalic sclera nonicteric bugle mucosa dry. Neck is supple, trachea midline. Chest rise symmetrical breath sounds with scattered rhonchi. S1-S2. Abdomen soft bowel tones present. Extremities with trace edema. Assessment: 1. Status post septic shock 2. Pneumonia possibly aspiration 3. Acute respiratory failure 4. Diabetes 5. Non-ST elevation LA Plan: Remains hemodynamically stable, continue present care, anti-aspiration measures, follow cardiology/pulmonary recommendations Discussed with RN Problems: Consultation Date/Type/Reason Admit Date/Time Mar 01, 2017 at 20:20 Initial Consult Date 03/02/17 Type of Consultation: ID Referring Provider: MICHELLE MORENO Exam/Review of Systems Vital Signs Vitals Vital Signs Date Time Temp Pulse Resp B/P Pulse Ox O2 Delivery O2 Flow Rate FiO2 03/09/17 09:00 99 21 136/56 98 Nasal Cannula 4.0 03/09/17 08:00 97.6 03/08/17 13:05 35 Intake and Output 03/08/17 03/08/17 03/09/17 15:00 23:00 07:00 Intake Total 525.90 ml 225 ml Output Total 360 ml 225 ml 500 ml Balance 165.90 ml 0 ml -500 ml Results Result Diagram: 03/08/17 0430 03/09/17 0015 Results 24 hrs Laboratory Tests Test 03/08/17 11:40 03/08/17 12:49 03/08/17 13:30 03/08/17 15:15 Blood Gas Specimen Source Blood arterial Arterial Blood Date Drawn 03/08/2017 11:50:47 AM Arterial Blood pH (Temp corrected) 7.366 Arterial Blood pCO2 (Temp correct) 39.7 Arterial Blood pO2 (Temp corrected) 81.0 Arterial Blood HCO3 22.2 Arterial Blood Base Excess -2.8 Arterial Blood Oxygen Saturation 94.8 L Pablo Test ACCEPTAB Arterial Blood Gas Puncture Site Right Radial Arterial Blood Carboxyhemoglobin 0.3 Arterial Blood Methemoglobin 0.3 Blood Gas A-a O2 Differential 122.4 H Oxyhemoglobin Percent 94.2 Total Hemoglobin 11.3 L Blood Gas Temperature 37.0 Blood Gas Actual Respiration Rate 13 Blood Gas Modality VENT - CPAP FiO2 35.0 Blood Gas Low PEEP Setting 5.0 Blood Gas Pressure Support 10 Blood Gas Notified Whom JLD Blood Gas Notified Time 03/08/2017 12:05:18 PM Bedside Glucose 154 Sodium Level 147 H Potassium Level 3.9 Chloride Level 109 Carbon Dioxide Level 25 Anion Gap 17 H Blood Urea Nitrogen 11 Creatinine 0.65 Glucose Level 138 Calcium Level 8.7 Magnesium Level 2.9 #H Vancomycin Level Trough 13.1 Test 03/08/17 21:10 03/09/17 00:15 03/09/17 01:50 03/09/17 05:07 Bedside Glucose 159 208 202 Sodium Level 146 H Potassium Level 3.4 L Chloride Level 106 Carbon Dioxide Level 27 Anion Gap 16 Blood Urea Nitrogen 9 Creatinine 0.70 Glucose Level 202 Calcium Level 8.8 Phosphorus Level 4.0 Magnesium Level 1.9 Test 03/09/17 09:10 Bedside Glucose 232 H Medications Medications Current Medications Acetaminophen 650 mg 650 mg Q4H PRN [place] PAIN LEVEL 1-3 OR FEVER; Start 03/02/17 at 00:30 Piperacillin Sod/ Tazobactam Sod (Zosyn 3.375gm/ 100 ml (Pmx)) 100 ml @ 200 mls /hr Q8 IVPB Last administered on 03/09/17t 05:23; Admin Dose 200 MLS/HR; Start 03/02/17 at 00:30 Miscellaneous Information 1 ea NOTE XX ; Start 03/02/17 at 00:30 Glucose (Glutose) 15 gm Q15M PRN PO DECREASED GLUCOSE; Start 03/02/17 at 00:30 Glucose (Glutose) 22.5 gm Q15M PRN PO DECREASED GLUCOSE; Start 03/02/17 at 00: 30 Dextrose (D50w Syringe) 25 ml Q15M PRN IV DECREASED GLUCOSE; Start 03/02/17 at 00:30 Dextrose (D50w Syringe) 50 ml Q15M PRN IV DECREASED GLUCOSE; Start 03/02/17 at 00:30 Glucagon (Glucagen) 1 mg Q15M PRN IM DECREASED GLUCOSE; Start 03/02/17 at 00:30 Glucose (Glutose) 15 gm Q15M PRN BUCCAL DECREASED GLUCOSE; Start 03/02/17 at 00 :30 Pantoprazole (Protonix Iv) 40 mg BID@06,18 IV Last administered on 03/09/17 05 :23; Admin Dose 40 MG; Start 03/04/17 at 06:00 Insulin Aspart NOVOLOG *MILD* ALGORI... Q4 SC Last administered on 03/09/17 09 :19; Admin Dose 3 UNIT; Start 03/06/17 at 05:00 Norepinephrine/ Dextrose (Levophed/D5W) 500 ml @ 1.87 mls/hr TITRATE IV ; Start 03/06/17 at 07:00 Aspirin (Halfprin) 81 mg DAILY PO ; Start 03/07/17 at 09:00 Atorvastatin Calcium (Lipitor) 40 mg QHS PO ; Start 03/06/17 at 21:00 Diclofenac Sodium (Voltaren) 75 mg DAILY PO ; Start 03/07/17 at 09:00 Donepezil HCl (Aricept) 5 mg QHS PO ; Start 03/06/17 at 21:00 Hydralazine HCl 10 mg 10 mg Q6H PRN IV ELEVATED BLOOD PRESSURE Last administered on 03/08/17 02:13; Admin Dose 10 MG; Start 03/07/17 at 09:30 Dextrose 1,000 ml @ 75 mls/hr [id number] IV Last administered on 03/09/17 04:09 ; Admin Dose 75 MLS/HR; Start 03/08/17 at 14:30 Potassium Chloride (KCl 40 MEQ/250 ML NS) 250 ml @ 62.5 mls/hr ONCE ONCE IVPB Last administered on 03/09/17 08:23; Admin Dose 62.5 MLS/HR; Start 03/09/17 at 07:30; Stop 03/09/17 at 11:29 Aspirin (Aspirin) 300 mg DAILY MD Last administered on 03/09/17 08:47; Admin Dose 300 MG; Start 03/09/17 at 09:00 Metoprolol Tartrate (Lopressor) 25 mg BID PO ; Start 03/09/17 at 09:00 HAO CUTLER NP Mar 09, 2017 10:16
--- NOTE | 2017-03-09 10:41 | RADRPT ---
PROCEDURE: XR Chest 1 View. CLINICAL INDICATION: Shortness of breath. TECHNIQUE: AP view of the chest was obtained. COMPARISON: March 07, 2017 FINDINGS: The heart size is within normal limits. Calcified atherosclerosis is noted in the aorta. Endotrache al tube has been removed. Left-sided central line is unchanged. Patchy infiltrates throughout the right lung have mildly increased. Scattered atelectasis is noted in the left lower lobe. Small rig ht pleural effusion may be present. Osseous structures are intact. IMPRESSION: Calcified atherosclerosis in the aorta. Interval extubation. Mild interval increase in patchy infiltrates throughout the right lung, combined with small pleural effusion. Atelectasis in the left lower lobe. RPTAT: AA .Porfirio Jensen MD, Date Time Electronically viewed and signed by .Porfirio Jensen MD, MD on 03/09/2017 10:40 .P/
--- NOTE | 2017-03-09 10:50 | CONS ---
Date/Time of Note Date/Time of Note DATE: 03/09/17 TIME: 10:48 Consult Date/Type/Reason Admit Date/Time Mar 01, 2017 at 20:20 Initial Consult Date 03/02/17 Type of Consultation: Pulmonary Ordering Provider: MICHELLE MORENO Subjective Patient awake alert comfortable no new events. Extubated yesterday remains stable this morning. Mild confusion but no respiratory distress. Objective Vital Signs Date Time Temp Pulse Resp B/P Pulse Ox O2 Delivery O2 Flow Rate FiO2 03/09/17 09:00 99 21 136/56 98 Nasal Cannula 4.0 03/09/17 08:00 97.6 03/08/17 13:05 35 Intake and Output 03/08/17 03/08/17 03/09/17 14:59 22:59 06:59 Intake Total 490.90 ml 260 ml Output Total 385 ml 300 ml 500 ml Balance 105.90 ml -40 ml -500 ml Exam PHYSICAL EXAMINATION GENERAL: Elderly lady nasal cannula oxygen no respiratory distress VITAL SIGNS: see below. HEENT: Pupils equal, round, and reactive to light. CARDIAC: S1, S2, 1/6 systolic ejection murmur CHEST: Diminished air entry bilaterally. ABDOMEN: Mildly distended. Bowel sounds present no guarding or rebound EXTREMITIES: No cyanosis, clubbing edema +1 NEUROLOGIC: Generalized weakness Results/Medications Result Diagram: 03/08/17 0430 03/09/17 0015 Results 24 hrs Laboratory Tests Test 03/08/17 11:40 03/08/17 12:49 03/08/17 13:30 03/08/17 15:15 Blood Gas Specimen Source Blood arterial Arterial Blood Date Drawn 03/08/2017 11:50:47 AM Arterial Blood pH (Temp corrected) 7.366 Arterial Blood pCO2 (Temp correct) 39.7 Arterial Blood pO2 (Temp corrected) 81.0 Arterial Blood HCO3 22.2 Arterial Blood Base Excess -2.8 Arterial Blood Oxygen Saturation 94.8 L Pablo Test ACCEPTAB Arterial Blood Gas Puncture Site Right Radial Arterial Blood Carboxyhemoglobin 0.3 Arterial Blood Methemoglobin 0.3 Blood Gas A-a O2 Differential 122.4 H Oxyhemoglobin Percent 94.2 Total Hemoglobin 11.3 L Blood Gas Temperature 37.0 Blood Gas Actual Respiration Rate 13 Blood Gas Modality VENT - CPAP FiO2 35.0 Blood Gas Low PEEP Setting 5.0 Blood Gas Pressure Support 10 Blood Gas Notified Whom JLD Blood Gas Notified Time 03/08/2017 12:05:18 PM Bedside Glucose 154 Sodium Level 147 H Potassium Level 3.9 Chloride Level 109 Carbon Dioxide Level 25 Anion Gap 17 H Blood Urea Nitrogen 11 Creatinine 0.65 Glucose Level 138 Calcium Level 8.7 Magnesium Level 2.9 #H Vancomycin Level Trough 13.1 Test 03/08/17 21:10 03/09/17 00:15 03/09/17 01:50 03/09/17 05:07 Bedside Glucose 159 208 202 Sodium Level 146 H Potassium Level 3.4 L Chloride Level 106 Carbon Dioxide Level 27 Anion Gap 16 Blood Urea Nitrogen 9 Creatinine 0.70 Glucose Level 202 Calcium Level 8.8 Phosphorus Level 4.0 Magnesium Level 1.9 Test 03/09/17 09:10 Bedside Glucose 232 H Medications Current Medications Acetaminophen 650 mg 650 mg Q4H PRN [place] PAIN LEVEL 1-3 OR FEVER; Start 03/02/17 at 00:30 Piperacillin Sod/ Tazobactam Sod (Zosyn 3.375gm/ 100 ml (Pmx)) 100 ml @ 200 mls /hr Q8 IVPB Last administered on 03/09/17 05:23; Admin Dose 200 MLS/HR; Start 03/02/17 at 00:30 Miscellaneous Information 1 ea NOTE XX ; Start 03/02/17 at 00:30 Glucose (Glutose) 15 gm Q15M PRN PO DECREASED GLUCOSE; Start 03/02/17 at 00:30 Glucose (Glutose) 22.5 gm Q15M PRN PO DECREASED GLUCOSE; Start 03/02/17 at 00: 30 Dextrose (D50w Syringe) 25 ml Q15M PRN IV DECREASED GLUCOSE; Start 03/02/17 at 00:30 Dextrose (D50w Syringe) 50 ml Q15M PRN IV DECREASED GLUCOSE; Start 03/02/17 at 00:30 Glucagon (Glucagen) 1 mg Q15M PRN IM DECREASED GLUCOSE; Start 03/02/17 at 00:30 Glucose (Glutose) 15 gm Q15M PRN BUCCAL DECREASED GLUCOSE; Start 03/02/17 at 00 :30 Pantoprazole (Protonix Iv) 40 mg BID@06,18 IV Last administered on 03/09/17 05 :23; Admin Dose 40 MG; Start 03/04/17 at 06:00 Insulin Aspart NOVOLOG *MILD* ALGORI... Q4 SC Last administered on 03/09/17 09 :19; Admin Dose 3 UNIT; Start 03/06/17 at 05:00 Norepinephrine/ Dextrose (Levophed/D5W) 500 ml @ 1.87 mls/hr TITRATE IV ; Start 03/06/17 at 07:00 Aspirin (Halfprin) 81 mg DAILY PO ; Start 03/07/17 at 09:00 Atorvastatin Calcium (Lipitor) 40 mg QHS PO ; Start 03/06/17 at 21:00 Diclofenac Sodium (Voltaren) 75 mg DAILY PO ; Start 03/07/17 at 09:00 Donepezil HCl (Aricept) 5 mg QHS PO ; Start 03/06/17 at 21:00 Hydralazine HCl 10 mg 10 mg Q6H PRN IV ELEVATED BLOOD PRESSURE Last administered on 03/08/17 02:13; Admin Dose 10 MG; Start 03/07/17 at 09:30 Dextrose 1,000 ml @ 75 mls/hr [id number] IV Last administered on 03/09/17 04:09 ; Admin Dose 75 MLS/HR; Start 03/08/17 at 14:30 Potassium Chloride (KCl 40 MEQ/250 ML NS) 250 ml @ 62.5 mls/hr ONCE ONCE IVPB Last administered on 03/09/17 08:23; Admin Dose 62.5 MLS/HR; Start 03/09/17 at 07:30; Stop 03/09/17 at 11:29 Aspirin (Aspirin) 300 mg DAILY [place] Last administered on 03/09/17 08:47; Admin Dose 300 MG; Start 03/09/17 at 09:00 Metoprolol Tartrate (Lopressor) 25 mg BID PO ; Start 03/09/17 at 09:00 Assessment/Plan Chief Complaint/Hosp Course Assessment 1. Hypoxemic and hypercapnic respiratory failure likely secondary to community- acquired pneumonia now extubated from mechanical ventilation 2. Atrial fibrillation with rapid ventricular rate likely exacerbated by hypoxemia and cardiac ischemia 3. 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 Status post septic shock secondary to above 4. Erosive gastritis on EGD findings. Nasogastric tube has been removed per GI recommendations 6. Delirium. Possible toxic metabolic. Slowly resolving Plan 1. Gentle diuresis as tolerated. 2. Broad-spectrum antibiotic coverage 3. Speech therapy evaluation 4. Nasal cannula oxygen 5. Continue insulin as needed. 6. Physical therapy eval Disposition Consider transfer to telemetry critical care time 40 minutes discussed with primary team and nursing staff Problems: MARY ALY MD, [facility] Mar 09, 2017 10:49
[2017-03-09 14:39] LABS: ADD SCAN DIFF NO
[2017-03-09 14:45] LABS: BASOPHILS % 0.1 % (0.0-2.0); EOSINOPHILS # 0.1 10^3/ul (0.0-0.5); EOSINOPHILS % 0.9 % (0.0-7.0); HEMATOCRIT 32.1 % (37.0-47.0); HEMOGLOBIN 9.5 g/dl (12.0-16.0); LYMPHOCYTES # 1.3 10^3/ul (0.8-2.9); LYMPHOCYTES % 11.4 % (15.0-51.0); MEAN CORPUSCULAR HEMOGLOBIN 29.6 pg (29.0-33.0); MEAN CORPUSCULAR HGB CONC 29.6 g/dl (32.0-37.0); MEAN PLATELET VOLUME 10.3 fl (7.4-10.4); MONOCYTES % 9.1 % (0.0-11.0); NEUTROPHIL # 8.1 10^3/ul (1.6-7.5); NEUTROPHILS % 74.2 % (39.0-77.0); PLATELET COUNT 316 10^3/UL (140-415); RED BLOOD COUNT 3.21 10^6/ul (4.20-5.40); RED CELL DISTRIBUTION WIDTH 14.8 % (11.5-14.5); WHITE BLOOD COUNT 10.9 10^3/ul (4.8-10.8)
--- NOTE | 2017-03-09 14:54 | PN ---
Date/Time of Note Date/Time of Note DATE: 03/09/17 TIME: 14:50 Assessment/Plan VTE Prophylaxis VTE Prophylaxis Intervention: SCD's Lines/Catheters IV Catheter Type (from Nrs): Central Line Central line still needed: Yes Urinary Cath still in place: Yes Reason Cath still needed: urinary retention Assessment/Plan Assessment/Plan Assessment * Coffee ground emesis EGD 03/04/2017 Erosive esophagitis Erosive gastritis, NG tube trauma Nodular gastritis. Biopsies obtained * Sepsis * Acute respiratory failure managed by pulmonary * Failed swallow evaluation Plan * Continue present regimen * Monitor hemoglobin and hematocrit, transfuse as necessary. * swallow evaluation tomorrow * Case discussed with Dr Cormier * Further orders will depend on clinical course Subjective 24 Hr Interval Summary Free Text/Dictation * course reviewed with RN * No untoward events overnight * bouts of confusion * failed swallow evaluation today Exam/Review of Systems Vital Signs Vitals Vital Signs Date Time Temp Pulse Resp B/P Pulse Ox O2 Delivery O2 Flow Rate FiO2 03/09/17 13:00 93 25 110/49 92 Nasal Cannula 4.0 03/09/17 12:00 99.0 03/08/17 13:05 35 Intake and Output 03/08/17 03/08/17 03/09/17 15:00 23:00 07:00 Intake Total 525.90 ml 225 ml 75 ml Output Total 360 ml 225 ml 565 ml Balance 165.90 ml 0 ml -490 ml Exam Constitutional: frail Neck: non-tender, supple Respiratory: clear to auscultation, normal air movement Cardiovascular: nl pulses, regular rate and rhythm Gastrointestinal: nl liver, spleen, non-tender, soft Musculoskeletal: muscle weakness Extremities: edema, normal pulses Neurological: confused Results Result Diagram: 03/08/17 0430 03/09/17 0015 Results 24 hrs Laboratory Tests Test 03/08/17 15:15 03/08/17 21:10 03/09/17 00:15 03/09/17 01:50 Vancomycin Level Trough 13.1 Bedside Glucose 159 208 Sodium Level 146 H Potassium Level 3.4 L Chloride Level 106 Carbon Dioxide Level 27 Anion Gap 16 Blood Urea Nitrogen 9 Creatinine 0.70 Glucose Level 202 Calcium Level 8.8 Phosphorus Level 4.0 Magnesium Level 1.9 Test 03/09/17 05:07 03/09/17 09:10 03/09/17 12:42 Bedside Glucose 202 232 H 161 Medications Medications Current Medications Acetaminophen 650 mg 650 mg Q4H PRN [place] PAIN LEVEL 1-3 OR FEVER; Start 03/02/17 at 00:30 Piperacillin Sod/ Tazobactam Sod (Zosyn 3.375gm/ 100 ml (Pmx)) 100 ml @ 200 mls /hr Q8 IVPB Last administered on 03/09/17 14:48; Admin Dose 200 MLS/HR; Start 03/02/17 at 00:30 Miscellaneous Information 1 ea NOTE XX ; Start 03/02/17 at 00:30 Glucose (Glutose) 15 gm Q15M PRN PO DECREASED GLUCOSE; Start 03/02/17 at 00:30 Glucose (Glutose) 22.5 gm Q15M PRN PO DECREASED GLUCOSE; Start 03/02/17 at 00: 30 Dextrose (D50w Syringe) 25 ml Q15M PRN IV DECREASED GLUCOSE; Start 03/02/17 at 00:30 Dextrose (D50w Syringe) 50 ml Q15M PRN IV DECREASED GLUCOSE; Start 03/02/17 at 00:30 Glucagon (Glucagen) 1 mg Q15M PRN IM DECREASED GLUCOSE; Start 03/02/17 at 00:30 Glucose (Glutose) 15 gm Q15M PRN BUCCAL DECREASED GLUCOSE; Start 03/02/17 at 00 :30 Pantoprazole (Protonix Iv) 40 mg BID@06,18 IV Last administered on 03/09/17 05 :23; Admin Dose 40 MG; Start 03/04/17 at 06:00 Insulin Aspart NOVOLOG *MILD* ALGORI... Q4 SC Last administered on 03/09/17 12 :48; Admin Dose 1 UNIT; Start 03/06/17 at 05:00 Norepinephrine/ Dextrose (Levophed/D5W) 500 ml @ 1.87 mls/hr TITRATE IV ; Start 03/06/17 at 07:00 Aspirin (Halfprin) 81 mg DAILY PO ; Start 03/07/17 at 09:00 Atorvastatin Calcium (Lipitor) 40 mg QHS PO ; Start 03/06/17 at 21:00 Diclofenac Sodium (Voltaren) 75 mg DAILY PO ; Start 03/07/17 at 09:00 Donepezil HCl (Aricept) 5 mg QHS PO ; Start 03/06/17 at 21:00 Hydralazine HCl 10 mg 10 mg Q6H PRN IV ELEVATED BLOOD PRESSURE Last administered on 03/08/17 02:13; Admin Dose 10 MG; Start 03/07/17 at 09:30 Dextrose (D5W) 1,000 ml @ 75 mls/hr [id number] IV Last administered on 03/09/17 04:09; Admin Dose 75 MLS/HR; Start 03/08/17 at 14:30 Aspirin (Aspirin) 300 mg DAILY [place] Last administered on 03/09/17 08:47; Admin Dose 300 MG; Start 03/09/17 at 09:00 Metoprolol Tartrate (Lopressor) 25 mg BID PO ; Start 03/09/17 at 09:00 NATALIIA YAN NP Mar 09, 2017 14:53
[2017-03-09 14:59] LABS: ALBUMIN 3.1 g/dl (3.3-4.9); ALBUMIN/GLOBULIN RATIO 0.83; BILIRUBIN,INDIRECT 0.1 mg/dl (0-1.1); BILIRUBIN,TOTAL 0.1 mg/dl (0.2-1.3); CALCIUM 8.6 mg/dl (8.4-10.2); CREATININE 0.63 mg/dl (0.44-1.00); MAGNESIUM 2.3 mg/dl (1.7-2.5); POTASSIUM 4.6 mmol/L (3.5-5.1); TOTAL PROTEIN 6.8 g/dl (6.1-8.1)
--- NOTE | 2017-03-09 15:29 | RADRPT ---
Vent Rate: 121 bpm RR Interval: 0 msec MA Interval: 0 msec QRS Duration: 76 msec QT Interval: 326 msec QTC Interval: 462 msec P-R-T [place]: 0 - -43 - 99 degrees Atrial fibrillation with rapid ventricular response Left axis deviation Septal infarct , age undetermined Abnormal ECG Electronically Signed By: Joseph Self [id number]
[2017-03-09] MEDS ORDERED: FUROSEMIDE 40 MG INJ ONE (17:36)
[2017-03-09] MEDS ORDERED: FUROSEMIDE 40 MG INJ IV ONE (18:00)
[2017-03-09 19:29] LABS: AADO2 Arterial 262.5 mmHg (7.0-24.0); Allen Test ACCEPTAB; Arterial Base Excess -2.9 mmol/L (-3.0-3); Arterial COHb 0.3 % (0.0-3.0); Arterial Fraction of Oxyhgb 98.1 % (93.0-99.0); Arterial HCO3 25.3 mmol/L (22.0-26.0); Arterial MetHb 0.4 % (0.0-1.5); Arterial Total Hemglobin 11.4 g/dl (12.0-18.0); Blood Gas IEPAP 18/5; Blood Gas PS 12; MODE MASK - BIPAP
[2017-03-09] MEDS: ATORVASTATIN 40 MG TAB PO SCH (20:50)
[2017-03-09] MEDS: DONEPEZIL 5 MG TAB PO SCH (20:50)
[2017-03-09 22:07] LABS: Allen Test ACCEPTAB; Arterial Base Excess 2.5 mmol/L (-3.0-3); Arterial COHb 0.3 % (0.0-3.0); Arterial Fraction of Oxyhgb 98.4 % (93.0-99.0); Arterial HCO3 28.7 mmol/L (22.0-26.0); Arterial MetHb 0.3 % (0.0-1.5); Arterial Total Hemglobin 11.3 g/dl (12.0-18.0); Blood Gas IEPAP 22/5; Blood Gas PS 12; MODE MASK - BIPAP
[2017-03-10] VITALS (32 sets, daily range): BP systolic 91–165; BP diastolic 42–147; PULSE 92–136; RESP 17–28
[2017-03-10] MEDS: INSULIN ASPART [NOVOLOG] 3 ML PEN SC SCH ×6 (01:06→21:01)
[2017-03-10 05:47] LABS: ADD SCAN DIFF NO
[2017-03-10 05:55] LABS: EOSINOPHILS # 0.1 10^3/ul (0.0-0.5); MONOCYTE # 0.8 10^3/ul (0.3-0.9)
[2017-03-10] MEDS: PANTOPRAZOLE 40 MG INJ IV SCH ×2 (06:02→17:17)
[2017-03-10] MEDS: PIPER-TAZO 3.375 GM IV (PMX) 100 ML IVPB SCH ×3 (06:02→22:46)
[2017-03-10 07:00] LABS: ALBUMIN 2.9 g/dl (3.3-4.9); ALBUMIN/GLOBULIN RATIO 0.82; BILIRUBIN,INDIRECT 0.2 mg/dl (0-1.1); BILIRUBIN,TOTAL 0.2 mg/dl (0.2-1.3); CALCIUM 8.6 mg/dl (8.4-10.2); CREATININE 0.57 mg/dl (0.44-1.00); MAGNESIUM 1.6 mg/dl (1.7-2.5); POTASSIUM 3.9 mmol/L (3.5-5.1); TOTAL PROTEIN 6.4 g/dl (6.1-8.1)
--- NOTE | 2017-03-10 07:09 | PN ---
Date/Time of Note Date/Time of Note DATE: 03/10/17 TIME: 07:05 Assessment/Plan VTE Prophylaxis VTE Prophylaxis Intervention: other Lines/Catheters IV Catheter Type (from Nrs): Central Line Central line still needed: Yes Urinary Cath still in place: Yes Reason Cath still needed: other (indicate) Assessment/Plan Chief Complaint/Hosp Course 1. P afib with RVR: 2. acute hypoxemic respiratory failure: extubated now but still very hypoxemic 3. + troponin: c.w NSTEMI due to demand ischemia due to above 4. DM and severely elevated glucose: controlled with insulin 5. dyslipidemia 6. pneumonia/ sepsis 7. shock : appear to be related to sepsis: currently off of levophed 8. hx memory impairment 9. anemia and GI bleed: stable now RESUME ASA off of plavix due to above off of cardizem drip unable to take any po meds now. will start po betablocker once able to take po meds DM Control with insulin echo shows normal EF replace lytes including K and Mg prn. Problems: Subjective 24 Hr Interval Summary Free Text/Dictation CARDIOLOGY FOLLOW UP NOTE/ critical care note d/w staff in ICU and rhythm was reviewed. pt remains in NSR/ SINUS tachy and frequent PVC/ PAC. pt with P Afib with RVR also. pt is EXTUBATED 03/08 no more bleeding is reported. she denies any chest pain to me pt has been hypoxemic and confused and refused to wear the O2 OBJECTIVE: General: confused and combative HEENT: NC/AT. pupils are constricted. round. NECK: NO JVD. no stridor. CV: RRR. systolic murmur; no gallop or rubs. PULM: + diffuse rhonchi. GI: SOFT, NT, ND, no rebound or guarding Extremity: trace B/L LE edema. no clubbing. neuro: awake and alert Psych: combative. rectal: deferred : normal ECHO personally reviewed: 1. Normal left ventricular systolic function. Normal left ventricular cavity size. Mild concentric left ventricular hypertrophy. Ejection fraction is visually estimated at 55 %. Tissue Doppler/Mitral Doppler indices are consistent with impaired relaxation (Stage I diastolic dysfunction). 2. The left atrium is normal in size. 3. Mitral valve leaflets appear mildly thickened. Mild mitral annular calcification. Trace mitral regurgitation. 4. No significant aortic stenosis or insufficiency. Aortic sclerosis without stenosis. 5. Normal appearance of the tricuspid valve. Estimated peak PA systolic pressure 26 mmHg. There is mild tricuspid regurgitation. Exam/Review of Systems Vital Signs Vitals Vital Signs Date Time Temp Pulse Resp B/P Pulse Ox O2 Delivery O2 Flow Rate FiO2 03/10/17 05:40 104 40 03/10/17 03:00 23 151/66 98 BIPAP 03/10/17 00:00 98.3 03/10/17 00:00 15.0 Intake and Output 03/09/17 03/09/17 03/10/17 15:00 23:00 07:00 Intake Total 750 ml 875 ml 225 ml Output Total 310 ml 1175 ml 1000 ml Balance 440 ml -300 ml -775 ml Results Result Diagram: 03/10/17 0400 03/10/17 0400 Results 24 hrs Laboratory Tests Test 03/09/17 09:10 03/09/17 12:42 03/09/17 14:10 03/09/17 17:56 Bedside Glucose 232 H 161 286 H White Blood Count 10.9 H Red Blood Count 3.21 L Hemoglobin 9.5 L Hematocrit 32.1 L Mean Corpuscular Volume 100.0 Mean Corpuscular Hemoglobin 29.6 Mean Corpuscular Hemoglobin Concent 29.6 L Red Cell Distribution Width 14.8 H Platelet Count 316 Mean Platelet Volume 10.3 Neutrophils % 74.2 Lymphocytes % 11.4 L Monocytes % 9.1 Eosinophils % 0.9 Basophils % 0.1 Nucleated Red Blood Cells % 0.0 Neutrophils # 8.1 H Lymphocytes # 1.3 Monocytes # 1.0 H Eosinophils # 0.1 Basophils # 0.0 Nucleated Red Blood Cells # 0.0 Sodium Level 145 H Potassium Level 4.6 Chloride Level 104 Carbon Dioxide Level 27 Anion Gap 19 H Blood Urea Nitrogen 6 L Creatinine 0.63 Glucose Level 196 Calcium Level 8.6 Magnesium Level 2.3 Total Bilirubin 0.1 L Direct Bilirubin 0.00 Indirect Bilirubin 0.1 Aspartate Amino Transf (AST/SGOT) 28 Alanine Aminotransferase (ALT/SGPT) 39 Alkaline Phosphatase 136 H Total Protein 6.8 Albumin 3.1 L Globulin 3.70 H Albumin/Globulin Ratio 0.83 Test 03/09/17 18:30 03/09/17 21:21 03/09/17 22:00 03/10/17 01:04 Blood Gas Specimen Source Blood arterial Blood arterial Arterial Blood Date Drawn 03/09/2017 7:05:14 PM 03/09/2017 9:55:19 PM Arterial Blood pH (Temp corrected) 7.237 *L 7.363 Arterial Blood pCO2 (Temp correct) 60.7 H 51.6 H Arterial Blood pO2 (Temp corrected) 171.4 H 202.6 H Arterial Blood HCO3 25.3 28.7 H Arterial Blood Base Excess -2.9 2.5 Arterial Blood Oxygen Saturation 98.8 99.0 Pablo Test ACCEPTAB ACCEPTAB Arterial Blood Gas Puncture Site Right Radial Right Radial Arterial Blood Carboxyhemoglobin 0.3 0.3 Arterial Blood Methemoglobin 0.4 0.3 Blood Gas A-a O2 Differential 262.5 H 241.0 H Oxyhemoglobin Percent 98.1 98.4 Total Hemoglobin 11.4 L 11.3 L Blood Gas Temperature 37.0 37.0 Blood Gas Respiration Rate 20.0 20.0 Blood Gas Actual Respiration Rate 22 20 Blood Gas Modality MASK - BIPAP MASK - BIPAP FiO2 70.0 70.0 Blood Gas Pressure Support 12 12 Blood Gas IPAP/EPAP Ratio 06/01 10/01 Blood Gas Critical Value Read Back TMEHROTRA RN Blood Gas Notified Whom JOHN MUNGUIA CRABBER Blood Gas Notified Time 03/09/2017 7:28:45 PM 03/09/2017 10:06:26 PM Bedside Glucose 301 H 203 Blood Gas Inspiratory Pressure 22.0 Test 03/10/17 04:00 03/10/17 04:41 White Blood Count 9.6 Red Blood Count 3.13 L Hemoglobin 9.3 L Hematocrit 30.8 L Mean Corpuscular Volume 98.4 Mean Corpuscular Hemoglobin 29.7 Mean Corpuscular Hemoglobin Concent 30.2 L Red Cell Distribution Width 14.6 H Platelet Count Pending Mean Platelet Volume 10.9 H Neutrophils % 81.3 H Lymphocytes % 8.0 L Monocytes % 8.2 Eosinophils % 0.7 Basophils % 0.2 Nucleated Red Blood Cells % 0.0 Neutrophils # 7.8 H Lymphocytes # 0.8 Monocytes # 0.8 Eosinophils # 0.1 Basophils # 0.0 Nucleated Red Blood Cells # 0.0 Sodium Level 143 Potassium Level 3.9 Chloride Level 98 Carbon Dioxide Level 32 H Anion Gap 17 H Blood Urea Nitrogen 5 L Creatinine 0.57 Glucose Level 207 Calcium Level 8.6 Magnesium Level 1.6 L Total Bilirubin 0.2 Direct Bilirubin 0.00 Indirect Bilirubin 0.2 Aspartate Amino Transf (AST/SGOT) 22 Alanine Aminotransferase (ALT/SGPT) 35 Alkaline Phosphatase 123 H Total Protein 6.4 Albumin 2.9 L Globulin 3.50 H Albumin/Globulin Ratio 0.82 Bedside Glucose 204 Medications Medications Current Medications Acetaminophen 650 mg 650 mg Q4H PRN [place] PAIN LEVEL 1-3 OR FEVER; Start 03/02/17 at 00:30 Piperacillin Sod/ Tazobactam Sod (Zosyn 3.375gm/ 100 ml (Pmx)) 100 ml @ 200 mls /hr Q8 IVPB Last administered on 03/10/17 06:02; Admin Dose 200 MLS/HR; Start 03/02/17 at 00:30 Miscellaneous Information 1 ea NOTE XX ; Start 03/02/17 at 00:30 Glucose (Glutose) 15 gm Q15M PRN PO DECREASED GLUCOSE; Start 03/02/17 at 00:30 Glucose (Glutose) 22.5 gm Q15M PRN PO DECREASED GLUCOSE; Start 03/02/17 at 00: 30 Dextrose (D50w Syringe) 25 ml Q15M PRN IV DECREASED GLUCOSE; Start 03/02/17 at 00:30 Dextrose (D50w Syringe) 50 ml Q15M PRN IV DECREASED GLUCOSE; Start 03/02/17 at 00:30 Glucagon (Glucagen) 1 mg Q15M PRN IM DECREASED GLUCOSE; Start 03/02/17 at 00:30 Glucose (Glutose) 15 gm Q15M PRN BUCCAL DECREASED GLUCOSE; Start 03/02/17 at 00 :30 Pantoprazole (Protonix Iv) 40 mg BID@06,18 IV Last administered on 03/10/17 06 :02; Admin Dose 40 MG; Start 03/04/17 at 06:00 Insulin Aspart NOVOLOG *MILD* ALGORI... Q4 SC Last administered on 03/10/17 05 :33; Admin Dose 2 UNIT; Start 03/06/17 at 05:00 Norepinephrine/ Dextrose (Levophed/D5W) 500 ml @ 1.87 mls/hr TITRATE IV ; Start 03/06/17 at 07:00 Aspirin (Halfprin) 81 mg DAILY PO ; Start 03/07/17 at 09:00 Atorvastatin Calcium (Lipitor) 40 mg QHS PO ; Start 03/06/17 at 21:00 Diclofenac Sodium (Voltaren) 75 mg DAILY PO ; Start 03/07/17 at 09:00 Donepezil HCl (Aricept) 5 mg QHS PO ; Start 03/06/17 at 21:00 Hydralazine HCl 10 mg 10 mg Q6H PRN IV ELEVATED BLOOD PRESSURE Last administered on 03/08/17 02:13; Admin Dose 10 MG; Start 03/07/17 at 09:30 Dextrose (D5W) 1,000 ml @ 75 mls/hr [id number] IV Last administered on 03/09/17 21:34; Admin Dose 75 MLS/HR; Start 03/08/17 at 14:30 Aspirin (Aspirin) 300 mg DAILY NM Last administered on 03/09/17 08:47; Admin Dose 300 MG; Start 03/09/17 at 09:00 Metoprolol Tartrate (Lopressor) 25 mg BID PO ; Start 03/09/17 at 09:00 TYREE MCKOY MD Mar 10, 2017 07:09
[2017-03-10] MEDS ORDERED: MAGNESIUM SULFATE 4 GM/100 ML 100 ML IVPB ONE (07:30)
[2017-03-10 07:58] LABS: AADO2 Arterial 225.4 mmHg (7.0-24.0); Allen Test ACCEPTAB; Arterial Base Excess 5.3 mmol/L (-3.0-3); Arterial COHb 0.3 % (0.0-3.0); Arterial Fraction of Oxyhgb 91.1 % (93.0-99.0); Arterial HCO3 32.5 mmol/L (22.0-26.0); Arterial MetHb 0.3 % (0.0-1.5); Arterial Total Hemglobin 11.6 g/dl (12.0-18.0); MODE MASK - VENTI
[2017-03-10 08:43] LABS: WHITE BLOOD COUNT 9.1 10^3/ul (4.8-10.8)
[2017-03-10 08:44] LABS: BASOPHILS % 0.4 % (0.0-2.0); EOSINOPHILS % 1.2 % (0.0-7.0); HEMATOCRIT 43.3 % (37.0-47.0); HEMOGLOBIN 13.5 g/dl (12.0-16.0); LYMPHOCYTES % 11.1 % (15.0-51.0); MEAN CORPUSCULAR HEMOGLOBIN 30.1 pg (29.0-33.0); MEAN CORPUSCULAR HGB CONC 31.2 g/dl (32.0-37.0); MEAN CORPUSCULAR VOLUME 96.4 fl (82.0-101.0); MEAN PLATELET VOLUME 10.2 fl (7.4-10.4); MONOCYTES % 9.3 % (0.0-11.0); NEUTROPHIL # 6.9 10^3/ul (1.6-7.5); NEUTROPHILS % 76.2 % (39.0-77.0); PLATELET COUNT 245 10^3/UL (140-415); RED BLOOD COUNT 4.49 10^6/ul (4.20-5.40); RED CELL DISTRIBUTION WIDTH 14.5 % (11.5-14.5)
[2017-03-10] MEDS: METOPROLOL 25 MG TAB PO SCH ×2 (09:00→20:57)
[2017-03-10] MEDS: ASPIRIN (EC) 81 MG TAB PO SCH (09:00)
[2017-03-10] MEDS: DICLOFENAC (EC) 75 MG TAB PO SCH (09:00)
[2017-03-10] MEDS: ASPIRIN 300 MG SUPP PR SCH (09:00)
[2017-03-10] MEDS: hydrALAzine 20 MG INJ IV PRN (09:37)
--- NOTE | 2017-03-10 09:43 | PN ---
Date/Time of Note Date/Time of Note DATE: 03/10/17 TIME: 09:37 Assessment/Plan VTE Prophylaxis VTE Prophylaxis Intervention: SCD's Lines/Catheters IV Catheter Type (from Nrsg): Central Line Central line still needed: Yes Urinary Cath still in place: Yes Reason Cath still needed: urinary retention Assessment/Plan Chief Complaint/Hosp Course Assessment/Plan: 86 yo F with dementia admitted from facility for acute hypoxic respiratory failure and sepsis: likely 2/2 aspiration pneumonia 1. acute hypoxic respiratory failure: 2/2 aspiration pna, now extubated 2 days ago. f/u pulmonology rec's, abx, duoneb's prn 2. Severe sepsis: from aspiration pna, ID following. Likely secondary to respiratory infection. Off pressors now Continue IV vancomycin and Zosyn per ID rec's 3. Tachycardia: Likely secondary to #2 and #1, per CV team for now, monitor, f/u CV rec's 4. suspected fungal esophagitis: Continue IV fluconazole. (defer to ID) 5. diabetes mellitus: Continue insulin sliding scale. resume basal insulin once pt taking PO again 6. History of essential hypertension: ARB on hold 7. Questionable GI bleed: sp EGD 7.15 , +gastritis - f/u GI rec's, continue PPI IV - avoid NG tube for now unless absolutely necessary 8. DVT and GI prophylaxis: SCDs, Protonix 9. thyroid - 7.13 labs notable for hyperthyroid (TSH low, t4 high)-->consider post discharge fu with PCP 10. hypernatremia - resolved now, continue D5W IV for now 11. low electrolytes: Replete as needed Code status: unfortunately pt with dementia and no advanced directive or family. Given aspiration most likely 2/2 dementia for which there is no cure, suspect aspiration will occur again. Appreciate palliative team consult, they will try to contact family members [place]. critical care time: 45 minutes Problems: Subjective 24 Hr Interval Summary Free Text/Dictation Pt on simple mask now since early AM. Off amiodarone IV drip now. Failed swallow eval yesterday. Exam/Review of Systems Vital Signs Vitals Vital Signs Date Time Temp Pulse Resp B/P Pulse Ox O2 Delivery O2 Flow Rate FiO2 03/10/17 08:00 Venti Mask 15.0 03/10/17 08:00 136 03/10/17 07:00 22 159/96 98 7/20/17 05:40 40 03/10/17 00:00 98.3 Intake and Output 03/09/17 03/09/17 03/10/17 15:00 23:00 07:00 Intake Total 750 ml 875 ml 625 ml Output Total 310 ml 1175 ml 1000 ml Balance 440 ml -300 ml -375 ml Exam GENERAL: Elderly lady lying in bed. somewhat restless, on simple mask HEENT: Pupils equal, round, and reactive to light. CARDIAC: S1, S2, 1/6 systolic ejection murmur CHEST: some diminished air entry bilaterally. ABDOMEN: Mildly distended. Bowel sounds present no guarding or rebound EXTREMITIES: No cyanosis, clubbing edema +1 NEUROLOGIC: Generalized weakness+ Results Result Diagram: 03/10/17 0744 03/10/17 0400 Results 24 hrs Laboratory Tests Test 03/09/17 12:42 03/09/17 14:10 03/09/17 17:56 03/09/17 18:30 Bedside Glucose 161 286 H White Blood Count 10.9 H Red Blood Count 3.21 L Hemoglobin 9.5 L Hematocrit 32.1 L Mean Corpuscular Volume 100.0 Mean Corpuscular Hemoglobin 29.6 Mean Corpuscular Hemoglobin Concent 29.6 L Red Cell Distribution Width 14.8 H Platelet Count 316 Mean Platelet Volume 10.3 Neutrophils % 74.2 Lymphocytes % 11.4 L Monocytes % 9.1 Eosinophils % 0.9 Basophils % 0.1 Nucleated Red Blood Cells % 0.0 Neutrophils # 8.1 H Lymphocytes # 1.3 Monocytes # 1.0 H Eosinophils # 0.1 Basophils # 0.0 Nucleated Red Blood Cells # 0.0 Sodium Level 145 H Potassium Level 4.6 Chloride Level 104 Carbon Dioxide Level 27 Anion Gap 19 H Blood Urea Nitrogen 6 L Creatinine 0.63 Glucose Level 196 Calcium Level 8.6 Magnesium Level 2.3 Total Bilirubin 0.1 L Direct Bilirubin 0.00 Indirect Bilirubin 0.1 Aspartate Amino Transf (AST/SGOT) 28 Alanine Aminotransferase (ALT/SGPT) 39 Alkaline Phosphatase 136 H Total Protein 6.8 Albumin 3.1 L Globulin 3.70 H Albumin/Globulin Ratio 0.83 Blood Gas Specimen Source Blood arterial Arterial Blood Date Drawn 03/09/2017 7:05:14 PM Arterial Blood pH (Temp corrected) 7.237 *L Arterial Blood pCO2 (Temp correct) 60.7 H Arterial Blood pO2 (Temp corrected) 171.4 H Arterial Blood HCO3 25.3 Arterial Blood Base Excess -2.9 Arterial Blood Oxygen Saturation 98.8 Pablo Test ACCEPTAB Arterial Blood Gas Puncture Site Right Radial Arterial Blood Carboxyhemoglobin 0.3 Arterial Blood Methemoglobin 0.4 Blood Gas A-a O2 Differential 262.5 H Oxyhemoglobin Percent 98.1 Total Hemoglobin 11.4 L Blood Gas Temperature 37.0 Blood Gas Respiration Rate 20.0 Blood Gas Actual Respiration Rate 22 Blood Gas Modality MASK - BIPAP FiO2 70.0 Blood Gas Pressure Support 12 Blood Gas IPAP/EPAP Ratio 18/ Blood Gas Critical Value Read Back TMEHRSARA RN Blood Gas Notified Whom JOHN Blood Gas Notified Time 03/09/2017 7:28:45 PM Test 03/09/17 21:21 03/09/17 22:00 03/10/17 01:04 03/10/17 04:00 Bedside Glucose 301 H 203 Blood Gas Specimen Source Blood arterial Arterial Blood Date Drawn 03/09/2017 9:55:19 PM Arterial Blood pH (Temp corrected) 7.363 Arterial Blood pCO2 (Temp correct) 51.6 H Arterial Blood pO2 (Temp corrected) 202.6 H Arterial Blood HCO3 28.7 H Arterial Blood Base Excess 2.5 Arterial Blood Oxygen Saturation 99.0 Pablo Test ACCEPTAB Arterial Blood Gas Puncture Site Right Radial Arterial Blood Carboxyhemoglobin 0.3 Arterial Blood Methemoglobin 0.3 Blood Gas A-a O2 Differential 241.0 H Oxyhemoglobin Percent 98.4 Total Hemoglobin 11.3 L Blood Gas Temperature 37.0 Blood Gas Respiration Rate 20.0 Blood Gas Actual Respiration Rate 20 Blood Gas Modality MASK - BIPAP FiO2 70.0 Blood Gas Inspiratory Pressure 22.0 Blood Gas Pressure Support 12 Blood Gas IPAP/EPAP Ratio 22/ Blood Gas Notified Whom NILDA JOY Blood Gas Notified Time 03/09/2017 10:06:26 PM Sodium Level 143 Potassium Level 3.9 Chloride Level 98 Carbon Dioxide Level 32 H Anion Gap 17 H Blood Urea Nitrogen 5 L Creatinine 0.57 Glucose Level 207 Calcium Level 8.6 Magnesium Level 1.6 L Total Bilirubin 0.2 Direct Bilirubin 0.00 Indirect Bilirubin 0.2 Aspartate Amino Transf (AST/SGOT) 22 Alanine Aminotransferase (ALT/SGPT) 35 Alkaline Phosphatase 123 H Total Protein 6.4 Albumin 2.9 L Globulin 3.50 H Albumin/Globulin Ratio 0.82 Test 03/10/17 04:41 03/10/17 07:00 03/10/17 07:44 03/10/17 09:17 Bedside Glucose 204 219 Blood Gas Specimen Source Blood arterial Arterial Blood Date Drawn 03/10/2017 7:30:00 AM Arterial Blood pH (Temp corrected) 7.342 L Arterial Blood pCO2 (Temp correct) 61.4 H Arterial Blood pO2 (Temp corrected) 62.0 L Arterial Blood HCO3 32.5 H Arterial Blood Base Excess 5.3 H Arterial Blood Oxygen Saturation 91.6 L Pablo Test ACCEPTAB Arterial Blood Gas Puncture Site Right Radial Arterial Blood Carboxyhemoglobin 0.3 Arterial Blood Methemoglobin 0.3 Blood Gas A-a O2 Differential 225.4 H Oxyhemoglobin Percent 91.1 L Total Hemoglobin 11.6 L Blood Gas Temperature 37.0 Blood Gas Modality MASK - VENTI FiO2 50.0 Blood Gas Notified Whom JLD Blood Gas Notified Time 03/10/2017 7:51:00 AM White Blood Count 9.1 Red Blood Count 4.49 # Hemoglobin 13.5 # Hematocrit 43.3 # Mean Corpuscular Volume 96.4 Mean Corpuscular Hemoglobin 30.1 Mean Corpuscular Hemoglobin Concent 31.2 L Red Cell Distribution Width 14.5 Platelet Count 245 # Mean Platelet Volume 10.2 Neutrophils % 76.2 Lymphocytes % 11.1 L Monocytes % 9.3 Eosinophils % 1.2 Basophils % 0.4 Nucleated Red Blood Cells % 0.0 Neutrophils # 6.9 Lymphocytes # 1.0 Monocytes # 0.8 Eosinophils # 0.1 Basophils # 0.0 Nucleated Red Blood Cells # 0.0 Medications Medications Current Medications Acetaminophen 650 mg 650 mg Q4H PRN [place] PAIN LEVEL 1-3 OR FEVER; Start 03/02/17 at 00:30 Piperacillin Sod/ Tazobactam Sod (Zosyn 3.375gm/ 100 ml (Pmx)) 100 ml @ 200 mls /hr Q8 IVPB Last administered on 03/10/17t 06:02; Admin Dose 200 MLS/HR; Start 03/02/17 at 00:30 Miscellaneous Information 1 ea NOTE XX ; Start 03/02/17 at 00:30 Glucose (Glutose) 15 gm Q15M PRN PO DECREASED GLUCOSE; Start 03/02/17 at 00:30 Glucose (Glutose) 22.5 gm Q15M PRN PO DECREASED GLUCOSE; Start 03/02/17 at 00: 30 Dextrose (D50w Syringe) 25 ml Q15M PRN IV DECREASED GLUCOSE; Start 03/02/17 at 00:30 Dextrose (D50w Syringe) 50 ml Q15M PRN IV DECREASED GLUCOSE; Start 03/02/17 at 00:30 Glucagon (Glucagen) 1 mg Q15M PRN IM DECREASED GLUCOSE; Start 03/02/17 at 00:30 Glucose (Glutose) 15 gm Q15M PRN BUCCAL DECREASED GLUCOSE; Start 03/02/17 at 00 :30 Pantoprazole (Protonix Iv) 40 mg BID@06,18 IV Last administered on 03/10/17 06 :02; Admin Dose 40 MG; Start 03/04/17 at 06:00 Insulin Aspart NOVOLOG *MILD* ALGORI... Q4 SC Last administered on 03/10/17 09 :22; Admin Dose 2 UNIT; Start 03/06/17 at 05:00 Norepinephrine/ Dextrose (Levophed/D5W) 500 ml @ 1.87 mls/hr TITRATE IV ; Start 03/06/17 at 07:00 Aspirin (Halfprin) 81 mg DAILY PO ; Start 03/07/17 at 09:00 Atorvastatin Calcium (Lipitor) 40 mg QHS PO ; Start 03/06/17 at 21:00 Diclofenac Sodium (Voltaren) 75 mg DAILY PO ; Start 03/07/17 at 09:00 Donepezil HCl (Aricept) 5 mg QHS PO ; Start 03/06/17 at 21:00 Hydralazine HCl 10 mg 10 mg Q6H PRN IV ELEVATED BLOOD PRESSURE Last administered on 03/08/17 02:13; Admin Dose 10 MG; Start 03/07/17 at 09:30 Dextrose (D5W) 1,000 ml @ 75 mls/hr [id number] IV Last administered on 03/09/17 21:34; Admin Dose 75 MLS/HR; Start 03/08/17 at 14:30 Aspirin (Aspirin) 300 mg DAILY IA Last administered on 03/09/17 08:47; Admin Dose 300 MG; Start 03/09/17 at 09:00 Metoprolol Tartrate 25 mg 25 mg BID PO ; Start 03/09/17 at 09:00 Magnesium Sulfate (Magnesium Sulfate 4 Gm/100 ml) 100 ml @ 25 mls/hr ONCE ONCE IVPB Last administered on 03/10/17t 08:33; Admin Dose 25 MLS/HR; Start at 07:30; Stop 03/10/17 at 11:29 FERNANDO DIMAS Mar 10, 2017 09:42
--- NOTE | 2017-03-10 10:36 | CONS ---
Date/Time of Note Date/Time of Note DATE: 03/10/17 TIME: 10:34 Consult Date/Type/Reason Admit Date/Time Mar 01, 2017 at 20:20 Initial Consult Date 03/02/17 Type of Consultation: Pulmonary Ordering Provider: MICHELLE MORENO Subjective Patient was extubated several days ago and now more agitated this morning with increasing respiratory distress overnight, initially treated with BiPAP which the patient is now refusing. She is saturating adequately on facemask O2 but still has coarse rhonchi and agitation. Objective Vital Signs Date Time Temp Pulse Resp B/P Pulse Ox O2 Delivery O2 Flow Rate FiO2 03/10/17 10:00 118 27 103/73 94 Venturi Mask 03/10/17 08:00 98.0 03/10/17 08:00 15.0 03/10/17 05:40 40 Intake and Output 03/09/17 03/09/17 03/10/17 15:00 23:00 07:00 Intake Total 750 ml 875 ml 625 ml Output Total 310 ml 1175 ml 1000 ml Balance 440 ml -300 ml -375 ml Exam PHYSICAL EXAMINATION GENERAL: Elderly lady facemask oxygen confused intermittent agitation VITAL SIGNS: see below. HEENT: Pupils equal, round, and reactive to light. CARDIAC: S1, S2, 1/6 systolic ejection murmur CHEST: Diminished air entry bilaterally. ABDOMEN: Mildly distended. Bowel sounds present no guarding or rebound EXTREMITIES: No cyanosis, clubbing edema +1 NEUROLOGIC: Generalized weakness Results/Medications Result Diagram: 03/10/17 0744 03/10/17 0400 Results 24 hrs Laboratory Tests Test 03/09/17 12:42 03/09/17 14:10 03/09/17 17:56 03/09/17 18:30 Bedside Glucose 161 286 H White Blood Count 10.9 H Red Blood Count 3.21 L Hemoglobin 9.5 L Hematocrit 32.1 L Mean Corpuscular Volume 100.0 Mean Corpuscular Hemoglobin 29.6 Mean Corpuscular Hemoglobin Concent 29.6 L Red Cell Distribution Width 14.8 H Platelet Count 316 Mean Platelet Volume 10.3 Neutrophils % 74.2 Lymphocytes % 11.4 L Monocytes % 9.1 Eosinophils % 0.9 Basophils % 0.1 Nucleated Red Blood Cells % 0.0 Neutrophils # 8.1 H Lymphocytes # 1.3 Monocytes # 1.0 H Eosinophils # 0.1 Basophils # 0.0 Nucleated Red Blood Cells # 0.0 Sodium Level 145 H Potassium Level 4.6 Chloride Level 104 Carbon Dioxide Level 27 Anion Gap 19 H Blood Urea Nitrogen 6 L Creatinine 0.63 Glucose Level 196 Calcium Level 8.6 Magnesium Level 2.3 Total Bilirubin 0.1 L Direct Bilirubin 0.00 Indirect Bilirubin 0.1 Aspartate Amino Transf (AST/SGOT) 28 Alanine Aminotransferase (ALT/SGPT) 39 Alkaline Phosphatase 136 H Total Protein 6.8 Albumin 3.1 L Globulin 3.70 H Albumin/Globulin Ratio 0.83 Blood Gas Specimen Source Blood arterial Arterial Blood Date Drawn 03/09/2017 7:05:14 PM Arterial Blood pH (Temp corrected) 7.237 *L Arterial Blood pCO2 (Temp correct) 60.7 H Arterial Blood pO2 (Temp corrected) 171.4 H Arterial Blood HCO3 25.3 Arterial Blood Base Excess -2.9 Arterial Blood Oxygen Saturation 98.8 Pablo Test ACCEPTAB Arterial Blood Gas Puncture Site Right Radial Arterial Blood Carboxyhemoglobin 0.3 Arterial Blood Methemoglobin 0.4 Blood Gas A-a O2 Differential 262.5 H Oxyhemoglobin Percent 98.1 Total Hemoglobin 11.4 L Blood Gas Temperature 37.0 Blood Gas Respiration Rate 20.0 Blood Gas Actual Respiration Rate 22 Blood Gas Modality MASK - BIPAP FiO2 70.0 Blood Gas Pressure Support 12 Blood Gas IPAP/EPAP Ratio 18/5 Blood Gas Critical Value Read Back TMEHROTRA RN Blood Gas Notified Whom MA Blood Gas Notified Time 03/09/2017 7:28:45 PM Test 03/09/17 21:21 03/09/17 22:00 03/10/17 01:04 03/10/17 04:00 Bedside Glucose 301 H 203 Blood Gas Specimen Source Blood arterial Arterial Blood Date Drawn 03/09/2017 9:55:19 PM Arterial Blood pH (Temp corrected) 7.363 Arterial Blood pCO2 (Temp correct) 51.6 H Arterial Blood pO2 (Temp corrected) 202.6 H Arterial Blood HCO3 28.7 H Arterial Blood Base Excess 2.5 Arterial Blood Oxygen Saturation 99.0 Pablo Test ACCEPTAB Arterial Blood Gas Puncture Site Right Radial Arterial Blood Carboxyhemoglobin 0.3 Arterial Blood Methemoglobin 0.3 Blood Gas A-a O2 Differential 241.0 H Oxyhemoglobin Percent 98.4 Total Hemoglobin 11.3 L Blood Gas Temperature 37.0 Blood Gas Respiration Rate 20.0 Blood Gas Actual Respiration Rate 20 Blood Gas Modality MASK - BIPAP FiO2 70.0 Blood Gas Inspiratory Pressure 22.0 Blood Gas Pressure Support 12 Blood Gas IPAP/EPAP Ratio 22/5 Blood Gas Notified Whom CHELLEES [employer] Blood Gas Notified Time 03/09/2017 10:06:26 PM Sodium Level 143 Potassium Level 3.9 Chloride Level 98 Carbon Dioxide Level 32 H Anion Gap 17 H Blood Urea Nitrogen 5 L Creatinine 0.57 Glucose Level 207 Calcium Level 8.6 Magnesium Level 1.6 L Total Bilirubin 0.2 Direct Bilirubin 0.00 Indirect Bilirubin 0.2 Aspartate Amino Transf (AST/SGOT) 22 Alanine Aminotransferase (ALT/SGPT) 35 Alkaline Phosphatase 123 H Total Protein 6.4 Albumin 2.9 L Globulin 3.50 H Albumin/Globulin Ratio 0.82 Test 03/10/17 04:41 03/10/17 07:00 03/10/17 07:44 03/10/17 09:17 Bedside Glucose 204 219 Blood Gas Specimen Source Blood arterial Arterial Blood Date Drawn 03/10/2017 7:30:00 AM Arterial Blood pH (Temp corrected) 7.342 L Arterial Blood pCO2 (Temp correct) 61.4 H Arterial Blood pO2 (Temp corrected) 62.0 L Arterial Blood HCO3 32.5 H Arterial Blood Base Excess 5.3 H Arterial Blood Oxygen Saturation 91.6 L Pablo Test ACCEPTAB Arterial Blood Gas Puncture Site Right Radial Arterial Blood Carboxyhemoglobin 0.3 Arterial Blood Methemoglobin 0.3 Blood Gas A-a O2 Differential 225.4 H Oxyhemoglobin Percent 91.1 L Total Hemoglobin 11.6 L Blood Gas Temperature 37.0 Blood Gas Modality MASK - VENTI FiO2 50.0 Blood Gas Notified Whom JLD Blood Gas Notified Time 03/10/2017 7:51:00 AM White Blood Count 9.1 Red Blood Count 4.49 # Hemoglobin 13.5 # Hematocrit 43.3 # Mean Corpuscular Volume 96.4 Mean Corpuscular Hemoglobin 30.1 Mean Corpuscular Hemoglobin Concent 31.2 L Red Cell Distribution Width 14.5 Platelet Count 245 # Mean Platelet Volume 10.2 Neutrophils % 76.2 Lymphocytes % 11.1 L Monocytes % 9.3 Eosinophils % 1.2 Basophils % 0.4 Nucleated Red Blood Cells % 0.0 Neutrophils # 6.9 Lymphocytes # 1.0 Monocytes # 0.8 Eosinophils # 0.1 Basophils # 0.0 Nucleated Red Blood Cells # 0.0 Medications Current Medications Acetaminophen 650 mg 650 mg Q4H PRN [place] PAIN LEVEL 1-3 OR FEVER; Start 03/02/17 at 00:30 Piperacillin Sod/ Tazobactam Sod (Zosyn 3.375gm/ 100 ml (Pmx)) 100 ml @ 200 mls /hr Q8 IVPB Last administered on 03/10/17 06:02; Admin Dose 200 MLS/HR; Start 03/02/17 at 00:30 Miscellaneous Information 1 ea NOTE XX ; Start 03/02/17 at 00:30 Glucose (Glutose) 15 gm Q15M PRN PO DECREASED GLUCOSE; Start 03/02/17 at 00:30 Glucose (Glutose) 22.5 gm Q15M PRN PO DECREASED GLUCOSE; Start 03/02/17 at 00: 30 Dextrose (D50w Syringe) 25 ml Q15M PRN IV DECREASED GLUCOSE; Start 03/02/17 at 00:30 Dextrose (D50w Syringe) 50 ml Q15M PRN IV DECREASED GLUCOSE; Start 03/02/17 at 00:30 Glucagon (Glucagen) 1 mg Q15M PRN IM DECREASED GLUCOSE; Start 03/02/17 at 00:30 Glucose (Glutose) 15 gm Q15M PRN BUCCAL DECREASED GLUCOSE; Start 03/02/17 at 00 :30 Pantoprazole (Protonix Iv) 40 mg BID@06,18 IV Last administered on 03/10/17 06 :02; Admin Dose 40 MG; Start 03/04/17 at 06:00 Insulin Aspart NOVOLOG *MILD* ALGORI... Q4 SC Last administered on 03/10/17 09 :22; Admin Dose 2 UNIT; Start 03/06/17 at 05:00 Norepinephrine/ Dextrose (Levophed/D5W) 500 ml @ 1.87 mls/hr TITRATE IV ; Start 03/06/17 at 07:00 Aspirin (Halfprin) 81 mg DAILY PO ; Start 03/07/17 at 09:00 Atorvastatin Calcium (Lipitor) 40 mg QHS PO ; Start 03/06/17 at 21:00 Diclofenac Sodium (Voltaren) 75 mg DAILY PO ; Start 03/07/17 at 09:00 Donepezil HCl (Aricept) 5 mg QHS PO ; Start 03/06/17 at 21:00 Hydralazine HCl 10 mg 10 mg Q6H PRN IV ELEVATED BLOOD PRESSURE Last administered on 03/10/17 09:37; Admin Dose 10 MG; Start 03/07/17 at 09:30 Dextrose (D5W) 1,000 ml @ 75 mls/hr [id number] IV Last administered on 03/09/17 21:34; Admin Dose 75 MLS/HR; Start 03/08/17 at 14:30 Aspirin (Aspirin) 300 mg DAILY [place] Last administered on 03/09/17 08:47; Admin Dose 300 MG; Start 03/09/17 at 09:00 Metoprolol Tartrate 25 mg 25 mg BID PO ; Start 03/09/17 at 09:00 Magnesium Sulfate (Magnesium Sulfate 4 Gm/100 ml) 100 ml @ 25 mls/hr ONCE ONCE IVPB Last administered on 03/10/17 08:33; Admin Dose 25 MLS/HR; Start at 07:30; Stop 03/10/17 at 11:29 Assessment/Plan Chief Complaint/Hosp Course Assessment 1. Hypoxemic and hypercapnic respiratory failure likely secondary to community- acquired pneumonia now extubated from mechanical ventilation worsening hypoxemia likely secondary to pulmonary edema given last radiographic findings. 2. Atrial fibrillation with rapid ventricular rate likely exacerbated by hypoxemia and cardiac ischemia 3. 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 Status post septic shock secondary to above 4. Erosive gastritis on EGD findings. Nasogastric tube has been removed per GI recommendations 6. Delirium. Likely toxic metabolic. Plan 1. Increase diuresis 2. Broad-spectrum antibiotic coverage 3. Speech therapy evaluation 4. Nasal cannula oxygen 5. Continue insulin as needed. 6. May require reintubation if fails diuretics and supplemental O2 Disposition critical care time 40 minutes discussed with primary team and nursing staff Problems: MARY ALY MD, [facility] Mar 10, 2017 10:36
[2017-03-10] MEDS: FUROSEMIDE 40 MG INJ IV SCH ×2 (11:35→17:17)
[2017-03-10] MEDS: DEXTROSE 5% 1,000 ML IV SCH ×2 (11:46→20:26)
--- NOTE | 2017-03-10 13:43 | RADRPT ---
PROCEDURE: XR Chest 1 View. CLINICAL INDICATION: Shortness of breath TECHNIQUE: AP view of the chest was obtained. COMPARISON: Yesterday FINDINGS: The cardiomediastinal silhouette is within normal limits. Left-sided central line is stable. Centra l pulmonary vascular congestion and interstitial prominence continues to be seen in both lungs. Lef t lower lobe infiltrates have mildly increased and are combined with small pleural effusion. The oss eous structures are unchanged. IMPRESSION: Central pulmonary vascular congestion and interstitial prominence in both lungs. Interval decrease in patchy infiltrates throughout the right lung. Mild residual combined with smal l pleural effusion remains. Interval increase in left lower lobe infiltrates, combined with small pleural effusion. RPTAT: AA .Porfirio Jensen MD, MD Date Time Electronically viewed and signed by .Porfirio Jensen MD, on 03/10/2017 13:43 .P/
--- NOTE | 2017-03-10 14:12 | CONS ---
Date/Time of Note Date/Time of Note DATE: 03/10/17 TIME: 14:11 Assessment/Plan Assessment/Plan Chief Complaint/Hosp Course No acute events, patient is lethargic, confused, on Ventimask Temperature 98 pulse 111 respirations 20 blood pressure 156/80 saturation 93% on mask WBC 9.1 H&H 13.5 and 43.3 platelets 245 no shift BN 5 creatinine 0.57 Chest x-ray this morning revealed pulmonary vascular congestion decreasing patchy infiltrates throughout the right lung interval increase in left lower lobe infiltrates combined with small pleural effusion Indwelling's Pierce left subclavian triple-lumen catheter Antibiotics: Zosyn day #10 Physical examination: Chronically ill-appearing elderly woman who is somewhat restless, in no distress. Head atraumatic normocephalic sclera nonicteric bugle mucosa dry. Neck is supple, trachea midline. Chest rise symmetrical breath sounds with scattered rhonchi. S1-S2. Abdomen soft bowel tones present. Extremities with trace edema. Assessment: 1. Status post septic shock 2. Pneumonia possibly aspiration 3. Acute respiratory failure 4. Diabetes 5. Non-ST elevation [place] Plan: Holding on on Ventimask, continue present care, anti-aspiration measures, follow cardiology/pulmonary recommendations Discussed with RN Problems: Consultation Date/Type/Reason Admit Date/Time Mar 01, 2017 at 20:20 Initial Consult Date 03/02/17 Type of Consultation: ID Referring Provider: MICHELLE MORENO Exam/Review of Systems Vital Signs Vitals Vital Signs Date Time Temp Pulse Resp B/P Pulse Ox O2 Delivery O2 Flow Rate FiO2 03/10/17 12:00 106 03/10/17 10:00 27 103/73 94 Venturi Mask 03/10/17 08:00 98.0 03/10/17 08:00 15.0 03/10/17 05:40 40 Intake and Output 03/09/17 03/09/17 03/10/17 15:00 23:00 07:00 Intake Total 750 ml 875 ml 625 ml Output Total 310 ml 1175 ml 1000 ml Balance 440 ml -300 ml -375 ml Results Result Diagram: 03/10/17 0744 03/10/17 0400 Results 24 hrs Laboratory Tests Test 03/09/17 17:56 03/09/17 18:30 03/09/17 21:21 03/09/17 22:00 Bedside Glucose 286 H 301 H Blood Gas Specimen Source Blood arterial Blood arterial Arterial Blood Date Drawn 03/09/2017 7:05:14 PM 03/09/2017 9:55:19 PM Arterial Blood pH (Temp corrected) 7.237 *L 7.363 Arterial Blood pCO2 (Temp correct) 60.7 H 51.6 H Arterial Blood pO2 (Temp corrected) 171.4 H 202.6 H Arterial Blood HCO3 25.3 28.7 H Arterial Blood Base Excess -2.9 2.5 Arterial Blood Oxygen Saturation 98.8 99.0 Pablo Test ACCEPTAB ACCEPTAB Arterial Blood Gas Puncture Site Right Radial Right Radial Arterial Blood Carboxyhemoglobin 0.3 0.3 Arterial Blood Methemoglobin 0.4 0.3 Blood Gas A-a O2 Differential 262.5 H 241.0 H Oxyhemoglobin Percent 98.1 98.4 Total Hemoglobin 11.4 L 11.3 L Blood Gas Temperature 37.0 37.0 Blood Gas Respiration Rate 20.0 20.0 Blood Gas Actual Respiration Rate 22 20 Blood Gas Modality MASK - BIPAP MASK - BIPAP FiO2 70.0 70.0 Blood Gas Pressure Support 12 12 Blood Gas IPAP/EPAP Ratio 06/01 10/01 Blood Gas Critical Value Read Back TMEHROTRA RN Blood Gas Notified Whom JOHN MUNGUIA SALES SERVICE REPRESENTATIVE Blood Gas Notified Time 03/09/2017 7:28:45 PM 03/09/2017 10:06:26 PM Blood Gas Inspiratory Pressure 22.0 Test 03/10/17 01:04 03/10/17 04:00 03/10/17 04:41 03/10/17 07:00 Bedside Glucose 203 204 Sodium Level 143 Potassium Level 3.9 Chloride Level 98 Carbon Dioxide Level 32 H Anion Gap 17 H Blood Urea Nitrogen 5 L Creatinine 0.57 Glucose Level 207 Calcium Level 8.6 Magnesium Level 1.6 L Total Bilirubin 0.2 Direct Bilirubin 0.00 Indirect Bilirubin 0.2 Aspartate Amino Transf (AST/SGOT) 22 Alanine Aminotransferase (ALT/SGPT) 35 Alkaline Phosphatase 123 H Total Protein 6.4 Albumin 2.9 L Globulin 3.50 H Albumin/Globulin Ratio 0.82 Blood Gas Specimen Source Blood arterial Arterial Blood Date Drawn 03/10/2017 7:30:00 AM Arterial Blood pH (Temp corrected) 7.342 L Arterial Blood pCO2 (Temp correct) 61.4 H Arterial Blood pO2 (Temp corrected) 62.0 L Arterial Blood HCO3 32.5 H Arterial Blood Base Excess 5.3 H Arterial Blood Oxygen Saturation 91.6 L Pablo Test ACCEPTAB Arterial Blood Gas Puncture Site Right Radial Arterial Blood Carboxyhemoglobin 0.3 Arterial Blood Methemoglobin 0.3 Blood Gas A-a O2 Differential 225.4 H Oxyhemoglobin Percent 91.1 L Total Hemoglobin 11.6 L Blood Gas Temperature 37.0 Blood Gas Modality MASK - VENTI FiO2 50.0 Blood Gas Notified Whom JLD Blood Gas Notified Time 03/10/2017 7:51:00 AM Test 03/10/17 07:44 03/10/17 09:17 03/10/17 13:20 White Blood Count 9.1 Red Blood Count 4.49 # Hemoglobin 13.5 # Hematocrit 43.3 # Mean Corpuscular Volume 96.4 Mean Corpuscular Hemoglobin 30.1 Mean Corpuscular Hemoglobin Concent 31.2 L Red Cell Distribution Width 14.5 Platelet Count 245 # Mean Platelet Volume 10.2 Neutrophils % 76.2 Lymphocytes % 11.1 L Monocytes % 9.3 Eosinophils % 1.2 Basophils % 0.4 Nucleated Red Blood Cells % 0.0 Neutrophils # 6.9 Lymphocytes # 1.0 Monocytes # 0.8 Eosinophils # 0.1 Basophils # 0.0 Nucleated Red Blood Cells # 0.0 Bedside Glucose 219 140 Medications Medications Current Medications Acetaminophen 650 mg 650 mg Q4H PRN [place] PAIN LEVEL 1-3 OR FEVER; Start 03/02/17 at 00:30 Piperacillin Sod/ Tazobactam Sod (Zosyn 3.375gm/ 100 ml (Pmx)) 100 ml @ 200 mls /hr Q8 IVPB Last administered on 03/10/17t 06:02; Admin Dose 200 MLS/HR; Start 03/02/17 at 00:30 Miscellaneous Information 1 ea NOTE XX ; Start 03/02/17 at 00:30 Glucose (Glutose) 15 gm Q15M PRN PO DECREASED GLUCOSE; Start 03/02/17 at 00:30 Glucose (Glutose) 22.5 gm Q15M PRN PO DECREASED GLUCOSE; Start 03/02/17 at 00: 30 Dextrose (D50w Syringe) 25 ml Q15M PRN IV DECREASED GLUCOSE; Start 03/02/17 at 00:30 Dextrose (D50w Syringe) 50 ml Q15M PRN IV DECREASED GLUCOSE; Start 03/02/17 at 00:30 Glucagon (Glucagen) 1 mg Q15M PRN IM DECREASED GLUCOSE; Start 03/02/17 at 00:30 Glucose (Glutose) 15 gm Q15M PRN BUCCAL DECREASED GLUCOSE; Start 03/02/17 at 00 :30 Pantoprazole (Protonix Iv) 40 mg BID@06,18 IV Last administered on 03/10/17 06 :02; Admin Dose 40 MG; Start 03/04/17 at 06:00 Insulin Aspart NOVOLOG *MILD* ALGORI... Q4 SC Last administered on 03/10/17 09 :22; Admin Dose 2 UNIT; Start 03/06/17 at 05:00 Norepinephrine/ Dextrose (Levophed/D5W) 500 ml @ 1.87 mls/hr TITRATE IV ; Start 03/06/17 at 07:00 Aspirin (Halfprin) 81 mg DAILY PO ; Start 03/07/17 at 09:00 Atorvastatin Calcium (Lipitor) 40 mg QHS PO ; Start 03/06/17 at 21:00 Diclofenac Sodium (Voltaren) 75 mg DAILY PO ; Start 03/07/17 at 09:00 Donepezil HCl (Aricept) 5 mg QHS PO ; Start 03/06/17 at 21:00 Hydralazine HCl 10 mg 10 mg Q6H PRN IV ELEVATED BLOOD PRESSURE Last administered on 03/10/17 09:37; Admin Dose 10 MG; Start 03/07/17 at 09:30 Dextrose (D5W) 1,000 ml @ 75 mls/hr [id number] IV Last administered on 03/10/17 11:46; Admin Dose 75 MLS/HR; Start 03/08/17 at 14:30 Aspirin (Aspirin) 300 mg DAILY [place] Last administered on 03/09/17 08:47; Admin Dose 300 MG; Start 03/09/17 at 09:00 Metoprolol Tartrate (Lopressor) 25 mg BID PO ; Start 03/09/17 at 09:00 HAO CUTLER NP Mar 10, 2017 14:12
--- NOTE | 2017-03-10 17:05 | PN ---
Date/Time of Note Date/Time of Note DATE: 03/10/17 TIME: 17:03 Assessment/Plan VTE Prophylaxis VTE Prophylaxis Intervention: SCD's Lines/Catheters IV [facility] Central Line Central line still needed: Yes Urinary Cath still in place: Yes Reason Cath still needed: urinary retention Assessment/Plan Assessment/Plan Assessment * Coffee ground emesis EGD 03/04/2017 Erosive esophagitis Erosive gastritis, NG tube trauma Nodular gastritis. Biopsies obtained * Sepsis * Acute respiratory failure managed by pulmonary * Failed swallow evaluation Plan * Continue present regimen * Monitor hemoglobin and hematocrit, transfuse as necessary. * Case discussed with Dr Cormier * Further orders will depend on clinical course Subjective 24 Hr Interval Summary Free Text/Dictation course reviewed no untoward events overnight Exam/Review of Systems Vital Signs Vitals Vital Signs Date Time Temp Pulse Resp B/P Pulse Ox O2 Delivery O2 Flow Rate FiO2 03/10/17 16:00 109 03/10/17 14:00 17 110/55 93 Trach Collar 03/10/17 12:00 98.4 03/10/17 08:00 15.0 03/10/17 05:40 40 Intake and Output 03/09/17 03/09/17 03/10/17 15:00 23:00 07:00 Intake Total 750 ml 875 ml 625 ml Output Total 310 ml 1175 ml 1000 ml Balance 440 ml -300 ml -375 ml Exam Constitutional: frail Neck: non-tender, supple Respiratory: diminished breath sounds, normal air movement, other (on venti mask) Cardiovascular: nl pulses, regular rate and rhythm Gastrointestinal: non-tender, soft Musculoskeletal: nl extremities to inspection Results Result Diagram: 03/10/17 0744 03/10/17 0400 Results 24 hrs Laboratory Tests Test 03/09/17 17:56 03/09/17 18:30 03/09/17 21:21 03/09/17 22:00 Bedside Glucose 286 H 301 H Blood Gas Specimen Source Blood arterial Blood arterial Arterial Blood Date Drawn 03/09/2017 7:05:14 PM 03/09/2017 9:55:19 PM Arterial Blood pH (Temp corrected) 7.237 *L 7.363 Arterial Blood pCO2 (Temp correct) 60.7 H 51.6 H Arterial Blood pO2 (Temp corrected) 171.4 H 202.6 H Arterial Blood HCO3 25.3 28.7 H Arterial Blood Base Excess -2.9 2.5 Arterial Blood Oxygen Saturation 98.8 99.0 Pablo Test ACCEPTAB ACCEPTAB Arterial Blood Gas Puncture Site Right Radial Right Radial Arterial Blood Carboxyhemoglobin 0.3 0.3 Arterial Blood Methemoglobin 0.4 0.3 Blood Gas A-a O2 Differential 262.5 H 241.0 H Oxyhemoglobin Percent 98.1 98.4 Total Hemoglobin 11.4 L 11.3 L Blood Gas Temperature 37.0 37.0 Blood Gas Respiration Rate 20.0 20.0 Blood Gas Actual Respiration Rate 22 20 Blood Gas Modality MASK - BIPAP MASK - BIPAP FiO2 70.0 70.0 Blood Gas Pressure Support 12 12 Blood Gas IPAP/EPAP Ratio 06/01 10/01 Blood Gas Critical Value Read Back TMEHROTRA RN Blood Gas Notified Whom JOHN MUNGUIA POLITICAL ORGANIZER Blood Gas Notified Time 03/09/2017 7:28:45 PM 03/09/2017 10:06:26 PM Blood Gas Inspiratory Pressure 22.0 Test 03/10/17 01:04 03/10/17 04:00 03/10/17 04:41 03/10/17 07:00 Bedside Glucose 203 204 Sodium Level 143 Potassium Level 3.9 Chloride Level 98 Carbon Dioxide Level 32 H Anion Gap 17 H Blood Urea Nitrogen 5 L Creatinine 0.57 Glucose Level 207 Calcium Level 8.6 Magnesium Level 1.6 L Total Bilirubin 0.2 Direct Bilirubin 0.00 Indirect Bilirubin 0.2 Aspartate Amino Transf (AST/SGOT) 22 Alanine Aminotransferase (ALT/SGPT) 35 Alkaline Phosphatase 123 H Total Protein 6.4 Albumin 2.9 L Globulin 3.50 H Albumin/Globulin Ratio 0.82 Blood Gas Specimen Source Blood arterial Arterial Blood Date Drawn 03/10/2017 7:30:00 AM Arterial Blood pH (Temp corrected) 7.342 L Arterial Blood pCO2 (Temp correct) 61.4 H Arterial Blood pO2 (Temp corrected) 62.0 L Arterial Blood HCO3 32.5 H Arterial Blood Base Excess 5.3 H Arterial Blood Oxygen Saturation 91.6 L Pablo Test ACCEPTAB Arterial Blood Gas Puncture Site Right Radial Arterial Blood Carboxyhemoglobin 0.3 Arterial Blood Methemoglobin 0.3 Blood Gas A-a O2 Differential 225.4 H Oxyhemoglobin Percent 91.1 L Total Hemoglobin 11.6 L Blood Gas Temperature 37.0 Blood Gas Modality MASK - VENTI FiO2 50.0 Blood Gas Notified Whom JLD Blood Gas Notified Time 03/10/2017 7:51:00 AM Test 03/10/17 07:44 03/10/17 09:17 03/10/17 13:20 White Blood Count 9.1 Red Blood Count 4.49 # Hemoglobin 13.5 # Hematocrit 43.3 # Mean Corpuscular Volume 96.4 Mean Corpuscular Hemoglobin 30.1 Mean Corpuscular Hemoglobin Concent 31.2 L Red Cell Distribution Width 14.5 Platelet Count 245 # Mean Platelet Volume 10.2 Neutrophils % 76.2 Lymphocytes % 11.1 L Monocytes % 9.3 Eosinophils % 1.2 Basophils % 0.4 Nucleated Red Blood Cells % 0.0 Neutrophils # 6.9 Lymphocytes # 1.0 Monocytes # 0.8 Eosinophils # 0.1 Basophils # 0.0 Nucleated Red Blood Cells # 0.0 Bedside Glucose 219 140 Medications Medications Current Medications Acetaminophen 650 mg 650 mg Q4H PRN [place] PAIN LEVEL 1-3 OR FEVER; Start 03/02/17 at 00:30 Piperacillin Sod/ Tazobactam Sod (Zosyn 3.375gm/ 100 ml (Pmx)) 100 ml @ 200 mls /hr Q8 IVPB Last administered on 03/10/17 14:21; Admin Dose 200 MLS/HR; Start 03/02/17 at 00:30 Miscellaneous Information 1 ea NOTE XX ; Start 03/02/17 at 00:30 Glucose (Glutose) 15 gm Q15M PRN PO DECREASED GLUCOSE; Start 03/02/17 at 00:30 Glucose (Glutose) 22.5 gm Q15M PRN PO DECREASED GLUCOSE; Start 03/02/17 at 00: 30 Dextrose (D50w Syringe) 25 ml Q15M PRN IV DECREASED GLUCOSE; Start 03/02/17 at 00:30 Dextrose (D50w Syringe) 50 ml Q15M PRN IV DECREASED GLUCOSE; Start 03/02/17 at 00:30 Glucagon (Glucagen) 1 mg Q15M PRN IM DECREASED GLUCOSE; Start 03/02/17 at 00:30 Glucose (Glutose) 15 gm Q15M PRN BUCCAL DECREASED GLUCOSE; Start 03/02/17 at 00 :30 Pantoprazole (Protonix Iv) 40 mg BID@06,18 IV Last administered on 03/10/17 06 :02; Admin Dose 40 MG; Start 03/04/17 at 06:00 Insulin Aspart NOVOLOG *MILD* ALGORI... Q4 SC Last administered on 03/10/17 09 :22; Admin Dose 2 UNIT; Start 03/06/17 at 05:00 Norepinephrine/ Dextrose (Levophed/D5W) 500 ml @ 1.87 mls/hr TITRATE IV ; Start 03/06/17 at 07:00 Aspirin (Halfprin) 81 mg DAILY PO ; Start 03/07/17 at 09:00 Atorvastatin Calcium (Lipitor) 40 mg QHS PO ; Start 03/06/17 at 21:00 Diclofenac Sodium (Voltaren) 75 mg DAILY PO ; Start 03/07/17 at 09:00 Donepezil HCl (Aricept) 5 mg QHS PO ; Start 03/06/17 at 21:00 Hydralazine HCl 10 mg 10 mg Q6H PRN IV ELEVATED BLOOD PRESSURE Last administered on 03/10/17 09:37; Admin Dose 10 MG; Start 03/07/17 at 09:30 Dextrose (D5W) 1,000 ml @ 75 mls/hr [id number] IV Last administered on 03/10/17 11:46; Admin Dose 75 MLS/HR; Start 03/08/17 at 14:30 Aspirin (Aspirin) 300 mg DAILY [place] Last administered on 03/09/17 08:47; Admin Dose 300 MG; Start 03/09/17 at 09:00 Metoprolol Tartrate (Lopressor) 25 mg BID PO ; Start 03/09/17 at 09:00 NATALIIA YAN NP Mar 10, 2017 17:05
[2017-03-10] MEDS ORDERED: AMIODARONE 150MG/D5W BOLUS 100 ML ONE (18:42)
[2017-03-10] MEDS ORDERED: AMIODARONE 150MG/D5W BOLUS 100 ML IV ONE (18:52)
[2017-03-10] MEDS ORDERED: AMIODARONE 900 MG in DEXTROSE 5% 482 ML IV SCH (19:00)
[2017-03-10] MEDS: DONEPEZIL 5 MG TAB PO SCH (20:57)
[2017-03-10] MEDS: ATORVASTATIN 40 MG TAB PO SCH (20:57)
[2017-03-11] VITALS (55 sets, daily range): BP systolic 73–150; BP diastolic 46–134; PULSE 71–167; RESP 15–46
[2017-03-11] MEDS: INSULIN ASPART [NOVOLOG] 3 ML PEN SC SCH ×6 (00:52→20:21)
[2017-03-11 02:11] LABS: AADO2 Arterial 224.6 mmHg (7.0-24.0); Allen Test ACCEPTAB; Arterial Base Excess 8.4 mmol/L (-3.0-3); Arterial COHb 0.3 % (0.0-3.0); Arterial Fraction of Oxyhgb 92.6 % (93.0-99.0); Arterial HCO3 35.2 mmol/L (22.0-26.0); Arterial MetHb 0.3 % (0.0-1.5); Arterial Total Hemglobin 10.9 g/dl (12.0-18.0); MODE MASK - VENTI
[2017-03-11 05:17] LABS: ADD SCAN DIFF NO
[2017-03-11 05:19] LABS: BASOPHILS % 0.2 % (0.0-2.0); EOSINOPHILS # 0.2 10^3/ul (0.0-0.5); EOSINOPHILS % 1.8 % (0.0-7.0); HEMATOCRIT 31.8 % (37.0-47.0); HEMOGLOBIN 9.6 g/dl (12.0-16.0); LYMPHOCYTES # 1.3 10^3/ul (0.8-2.9); LYMPHOCYTES % 11.9 % (15.0-51.0); MEAN CORPUSCULAR HEMOGLOBIN 29.6 pg (29.0-33.0); MEAN CORPUSCULAR HGB CONC 30.2 g/dl (32.0-37.0); MEAN CORPUSCULAR VOLUME 98.1 fl (82.0-101.0); MEAN PLATELET VOLUME 10.1 fl (7.4-10.4); MONOCYTE # 0.9 10^3/ul (0.3-0.9); MONOCYTES % 8.9 % (0.0-11.0); NEUTROPHIL # 8.1 10^3/ul (1.6-7.5); NEUTROPHILS % 76.3 % (39.0-77.0); PLATELET COUNT 300 10^3/UL (140-415); RED BLOOD COUNT 3.24 10^6/ul (4.20-5.40); RED CELL DISTRIBUTION WIDTH 14.5 % (11.5-14.5); WHITE BLOOD COUNT 10.6 10^3/ul (4.8-10.8)
[2017-03-11] MEDS: PIPER-TAZO 3.375 GM IV (PMX) 100 ML IVPB SCH (05:38)
[2017-03-11] MEDS: FUROSEMIDE 40 MG INJ IV SCH ×2 (05:38→17:45)
[2017-03-11] MEDS: PANTOPRAZOLE 40 MG INJ IV SCH ×2 (05:38→17:45)
[2017-03-11 06:25] LABS: MAGNESIUM 1.8 mg/dl (1.7-2.5); PHOSPHORUS 2.3 mg/dl (2.5-4.9)
[2017-03-11 06:30] LABS: CALCIUM 8.7 mg/dl (8.4-10.2); CREATININE 0.59 mg/dl (0.44-1.00); POTASSIUM 3.3 mmol/L (3.5-5.1)
[2017-03-11] MEDS: hydrALAzine 20 MG INJ IV PRN (06:54)
[2017-03-11] MEDS ORDERED: LORAZEPAM 2 MG INJ IV ONE (07:30)
[2017-03-11] MEDS ORDERED: DIGOXIN 500 MCG INJ IV ONE (07:30)
[2017-03-11 07:57] LABS: AADO2 Arterial 234.1 mmHg (7.0-24.0); Allen Test ACCEPTAB; Arterial Base Excess 8.7 mmol/L (-3.0-3); Arterial COHb 0.3 % (0.0-3.0); Arterial Fraction of Oxyhgb 93.1 % (93.0-99.0); Arterial HCO3 34.1 mmol/L (22.0-26.0); Arterial MetHb 0.2 % (0.0-1.5); Arterial Total Hemglobin 10.4 g/dl (12.0-18.0); MODE MASK - VENTI
--- NOTE | 2017-03-11 08:01 | RADRPT ---
PROCEDURE: XR Chest. CLINICAL INDICATION: pna chf TECHNIQUE: PA and Lateral views of the chest were obtained. COMPARISON: Chest x-ray 06/13/2014 FINDINGS: The cardiomediastinal silhouette is within normal limits. A small calcified granuloma in the right upper lobe laterally is stable. No pneumothorax or significant pleural effusion is identified. Hazy opacities at both lung bases re present atelectasis or mild interstitial edema. There is evidence of pulmonary vascular congestion, new as compared to prior study. There are degenerative changes of the visualized spine. IMPRESSION: New pulmonary vascular congestion with mild interstitial edema. RPTAT: PP Physician Femi Date Time Electronically viewed and signed by Physician Femi on 03/11/2017 08:01 /
--- NOTE | 2017-03-11 08:55 | PN ---
Date/Time of Note Date/Time of Note DATE: 03/11/17 TIME: 08:50 Assessment/Plan VTE Prophylaxis VTE Prophylaxis Intervention: SCD's Lines/Catheters IV Catheter Type (from Nrsg): Central Line Central line still needed: Yes Urinary Cath still in place: Yes Reason Cath still needed: urinary retention Assessment/Plan Chief Complaint/Hosp Course Assessment/Plan: 86 yo F with dementia admitted from facility for acute hypoxic respiratory failure and sepsis: likely 2/2 aspiration pneumonia 1. acute hypoxic respiratory failure: 2/2 aspiration pna, now extubated 3 days ago. Requiring venturi mask and BiPAP at night. ABG performed as well, CXR too this AM. f/u pulmonology rec's, abx, duoneb's prn - will stop IVF's as well given CXR findings 2. Severe sepsis: from aspiration pna, ID following. Likely secondary to respiratory infection. Off pressors Continue IV vancomycin and Zosyn per ID rec's 3. Tachycardia: afib with RVR vs sinus tach (fluctuates) -for now, monitor, f/u CV rec's - back on amiodarone IV now, f/u CV rec's 4. suspected fungal esophagitis: Continue IV fluconazole. (defer to ID) 5. diabetes mellitus: Continue insulin sliding scale. resume basal insulin once pt taking PO again 6. History of essential hypertension: ARB on hold 7. Questionable GI bleed: sp EGD 7.15 , +gastritis - f/u GI rec's, continue PPI IV - avoid NG tube for now unless absolutely necessary - ST eval today again to reassess. 8. DVT and GI prophylaxis: SCDs, Protonix 9. thyroid - 7.13 labs notable for hyperthyroid (TSH low, t4 high)-->consider post discharge fu with PCP 10. hypernatremia - resolved now, monitor 11. low electrolytes: Replete as needed again today. Code status: unfortunately pt with dementia and no advanced directive or family. Given aspiration most likely 2/2 dementia for which there is no cure, suspect aspiration will occur again. Appreciate palliative team consult, they will try to contact family members [place]. critical care time: 40 minutes Problems: Subjective 24 Hr Interval Summary Free Text/Dictation Pt back on amiodarone IV after tachy. Received one dose digoxin as well thia AM. Still on venturi mask. Pt was on Bipap last night as well. Exam/Review of Systems Vital Signs Vitals Vital Signs Date Time Temp Pulse Resp B/P Pulse Ox O2 Delivery O2 Flow Rate FiO2 03/11/17 06:30 126 20 147/82 94 Venturi Mask 03/11/17 04:40 40 03/11/17 04:00 98.6 03/10/17 20:00 15.0 Intake and Output 03/10/17 03/10/17 03/11/17 14:59 22:59 06:59 Intake Total 687 ml 766.8 ml 1000.24 ml Output Total 1410 ml 1475 ml 700 ml Balance -723 ml -708.2 ml 300.24 ml Exam GENERAL: Elderly lady lying in bed, on simple mask HEENT: Pupils equal, round, and reactive to light. CARDIAC: S1, S2, 1/6 systolic ejection murmur CHEST: some diminished air entry bilaterally. ABDOMEN: Mildly distended. Bowel sounds present no guarding or rebound EXTREMITIES: No cyanosis, clubbing edema +1 NEUROLOGIC: Generalized weakness+ Results Result Diagram: 03/11/17 0430 03/11/17 0430 Results 24 hrs Laboratory Tests Test 03/10/17 09:17 03/10/17 13:20 03/10/17 17:16 03/10/17 20:59 Bedside Glucose 219 140 224 H 225 H Test 03/11/17 00:48 03/11/17 01:30 03/11/17 04:30 03/11/17 05:23 Bedside Glucose 227 H 234 H Blood Gas Specimen Source Blood arterial Arterial Blood Date Drawn 03/11/2017 1:55:00 AM Arterial Blood pH (Temp corrected) 7.378 Arterial Blood pCO2 (Temp correct) 61.2 H Arterial Blood pO2 (Temp corrected) 63.1 L Arterial Blood HCO3 35.2 H Arterial Blood Base Excess 8.4 H Arterial Blood Oxygen Saturation 93.2 L Pablo Test ACCEPTAB Arterial Blood Gas Puncture Site Right Radial Arterial Blood Carboxyhemoglobin 0.3 Arterial Blood Methemoglobin 0.3 Blood Gas A-a O2 Differential 224.6 H Oxyhemoglobin Percent 92.6 L Total Hemoglobin 10.9 L Blood Gas Temperature 37.0 Blood Gas Actual Respiration Rate 22 Blood Gas Modality MASK - VENTI FiO2 50.0 Blood Gas Notified Whom MG Blood Gas Notified Time 03/11/2017 2:11:23 AM White Blood Count 10.6 Red Blood Count 3.24 #L Hemoglobin 9.6 #L Hematocrit 31.8 #L Mean Corpuscular Volume 98.1 Mean Corpuscular Hemoglobin 29.6 Mean Corpuscular Hemoglobin Concent 30.2 L Red Cell Distribution Width 14.5 Platelet Count 300 # Mean Platelet Volume 10.1 Neutrophils % 76.3 Lymphocytes % 11.9 L Monocytes % 8.9 Eosinophils % 1.8 Basophils % 0.2 Neutrophils # 8.1 H Lymphocytes # 1.3 Monocytes # 0.9 Eosinophils # 0.2 Basophils # 0.0 Nucleated Red Blood Cells # 0.0 Sodium Level 142 Potassium Level 3.3 L Chloride Level 93 L Carbon Dioxide Level 36 H Anion Gap 16 Blood Urea Nitrogen 4 L Creatinine 0.59 Glucose Level 238 H Calcium Level 8.7 Phosphorus Level 2.3 L Magnesium Level 1.8 Test 03/11/17 07:00 03/11/17 08:28 Blood Gas Specimen Source Blood arterial Arterial Blood Date Drawn 03/11/2017 7:10:59 AM Arterial Blood pH (Temp corrected) 7.439 Arterial Blood pCO2 (Temp correct) 51.5 H Arterial Blood pO2 (Temp corrected) 64.5 L Arterial Blood HCO3 34.1 H Arterial Blood Base Excess 8.7 H Arterial Blood Oxygen Saturation 93.6 L Pablo Test ACCEPTAB Arterial Blood Gas Puncture Site Right Radial Arterial Blood Carboxyhemoglobin 0.3 Arterial Blood Methemoglobin 0.2 Blood Gas A-a O2 Differential 234.1 H Oxyhemoglobin Percent 93.1 Total Hemoglobin 10.4 L Blood Gas Temperature 37.0 Blood Gas Modality MASK - VENTI FiO2 50.0 Blood Gas Notified Whom JLD Blood Gas Notified Time 03/11/2017 7:57:30 AM Bedside Glucose 233 H Medications Medications Current Medications Acetaminophen 650 mg 650 mg Q4H PRN [place] PAIN LEVEL 1-3 OR FEVER; Start 03/02/17 at 00:30 Piperacillin Sod/ Tazobactam Sod (Zosyn 3.375gm/ 100 ml (Pmx)) 100 ml @ 200 mls /hr Q8 IVPB Last administered on 03/11/17t 05:38; Admin Dose 200 MLS/HR; Start 03/02/17 at 00:30 Miscellaneous Information 1 ea NOTE XX ; Start 03/02/17 at 00:30 Glucose (Glutose) 15 gm Q15M PRN PO DECREASED GLUCOSE; Start 03/02/17 at 00:30 Glucose (Glutose) 22.5 gm Q15M PRN PO DECREASED GLUCOSE; Start 03/02/17 at 00: 30 Dextrose (D50w Syringe) 25 ml Q15M PRN IV DECREASED GLUCOSE; Start 03/02/17 at 00:30 Dextrose (D50w Syringe) 50 ml Q15M PRN IV DECREASED GLUCOSE; Start 03/02/17 at 00:30 Glucagon (Glucagen) 1 mg Q15M PRN IM DECREASED GLUCOSE; Start 03/02/17 at 00:30 Glucose (Glutose) 15 gm Q15M PRN BUCCAL DECREASED GLUCOSE; Start 03/02/17 at 00 :30 Pantoprazole (Protonix Iv) 40 mg BID@06,18 IV Last administered on 03/11/17 05 :38; Admin Dose 40 MG; Start 03/04/17 at 06:00 Insulin Aspart NOVOLOG *MILD* ALGORI... Q4 SC Last administered on 03/11/17 08 :32; Admin Dose 3 UNIT; Start 03/06/17 at 05:00 Norepinephrine/ Dextrose (Levophed/D5W) 500 ml @ 1.87 mls/hr TITRATE IV ; Start 03/06/17 at 07:00 Aspirin (Halfprin) 81 mg DAILY PO ; Start 03/07/17 at 09:00 Atorvastatin Calcium (Lipitor) 40 mg QHS PO ; Start 03/06/17 at 21:00 Diclofenac Sodium (Voltaren) 75 mg DAILY PO ; Start 03/07/17 at 09:00 Donepezil HCl (Aricept) 5 mg QHS PO ; Start 03/06/17 at 21:00 Hydralazine HCl (Apresoline) 10 mg Q6H PRN IV ELEVATED BLOOD PRESSURE Last administered on 03/11/17 06:54; Admin Dose 10 MG; Start 03/07/17 at 09:30 Aspirin (Aspirin) 300 mg DAILY [place] Last administered on 03/09/17 08:47; Admin Dose 300 MG; Start 03/09/17 at 09:00 Metoprolol Tartrate 25 mg 25 mg BID PO ; Start 03/09/17 at 09:00 Amiodarone HCl 900 mg/Dextrose 500 ml @ 0 mls/hr Q0M IV Last administered on t 20:04; Admin Dose 33.4 MLS/HR; Start 03/10/17 at 19:00; Stop 03/11/17 at 18:59 Potassium Phosphate/Sodium Chloride (K Phos (Meq)/NS) 259.0909 ml @ 64.773 m... ONCE ONCE IVPB ; Start 03/11/17 at 09:00; Stop 03/11/17 at 12:59; Status FERNANDO BROWN Mar 11, 2017 08:54
[2017-03-11] MEDS: ASPIRIN (EC) 81 MG TAB PO SCH (09:00)
[2017-03-11] MEDS: ASPIRIN 300 MG SUPP PR SCH ×2 (09:00→13:29)
[2017-03-11] MEDS: DICLOFENAC (EC) 75 MG TAB PO SCH (09:00)
[2017-03-11] MEDS: METOPROLOL 25 MG TAB PO SCH ×2 (09:00→20:13)
[2017-03-11] MEDS ORDERED: POTASSIUM PHOSPHATE 40 MEQ in SOD CHLORIDE 0.9% 250 ML IVPB SCH (10:30)
--- NOTE | 2017-03-11 10:38 | PN ---
Date/Time of Note Date/Time of Note DATE: 03/11/17 TIME: 10:34 Assessment/Plan VTE Prophylaxis VTE Prophylaxis Intervention: SCD's Lines/Catheters IV [facility] Type [facility] Central Line Central line still needed: Yes Urinary Cath still in place: Yes Reason Cath still needed: urinary retention Assessment/Plan Assessment/Plan Assessment * Coffee ground emesis EGD 03/04/2017 Erosive esophagitis Erosive gastritis, NG tube trauma Nodular gastritis. Biopsies obtained * Sepsis * Acute respiratory failure managed by pulmonary * Failed swallow evaluation Plan * may reinsert NGT for feeding if patient fails swallo evaluation * Continue present regimen * Monitor hemoglobin and hematocrit, transfuse as necessary. * Case discussed with Dr Cormier * Further orders will depend on clinical course Subjective 24 Hr Interval Summary Free Text/Dictation * course reviewed with RN * patient seen and examined * Failed swallow evaluation * Lethargic Exam/Review of Systems Vital Signs Vitals Vital Signs Date Time Temp Pulse Resp B/P Pulse Ox O2 Delivery O2 Flow Rate FiO2 03/11/17 06:30 126 20 147/82 94 Venturi Mask 03/11/17 04:40 40 03/11/17 04:00 98.6 03/10/17 20:00 15.0 Intake and Output 03/10/17 03/10/17 03/11/17 15:00 23:00 07:00 Intake Total 762 ml 800.2 ml 883.50 ml Output Total 1490 ml 1495 ml 600 ml Balance -728 ml -694.8 ml 283.50 ml Exam Constitutional: frail Head: normocephalic Neck: non-tender, supple Respiratory: crackles/rales, diminished breath sounds, other (venti mask at 50% ) Results Result Diagram: 03/11/17 0430 03/11/17 0430 Results 24 hrs Laboratory Tests Test 03/10/17 13:20 03/10/17 17:16 03/10/17 20:59 03/11/17 00:48 Bedside Glucose 140 224 H 225 H 227 H Test 03/11/17 01:30 03/11/17 04:30 03/11/17 05:23 03/11/17 07:00 Blood Gas Specimen Source Blood arterial Blood arterial Arterial Blood Date Drawn 03/11/2017 1:55:00 AM 03/11/2017 7:10:59 AM Arterial Blood pH (Temp corrected) 7.378 7.439 Arterial Blood pCO2 (Temp correct) 61.2 H 51.5 H Arterial Blood pO2 (Temp corrected) 63.1 L 64.5 L Arterial Blood HCO3 35.2 H 34.1 H Arterial Blood Base Excess 8.4 H 8.7 H Arterial Blood Oxygen Saturation 93.2 L 93.6 L Pablo Test ACCEPTAB ACCEPTAB Arterial Blood Gas Puncture Site Right Radial Right Radial Arterial Blood Carboxyhemoglobin 0.3 0.3 Arterial Blood Methemoglobin 0.3 0.2 Blood Gas A-a O2 Differential 224.6 H 234.1 H Oxyhemoglobin Percent 92.6 L 93.1 Total Hemoglobin 10.9 L 10.4 L Blood Gas Temperature 37.0 37.0 Blood Gas Actual Respiration Rate 22 Blood Gas Modality MASK - VENTI MASK - VENTI FiO2 50.0 50.0 Blood Gas Notified Whom MG JLD Blood Gas Notified Time 03/11/2017 2:11:23 AM 03/11/2017 7:57:30 AM White Blood Count 10.6 Red Blood Count 3.24 #L Hemoglobin 9.6 #L Hematocrit 31.8 #L Mean Corpuscular Volume 98.1 Mean Corpuscular Hemoglobin 29.6 Mean Corpuscular Hemoglobin Concent 30.2 L Red Cell Distribution Width 14.5 Platelet Count 300 # Mean Platelet Volume 10.1 Neutrophils % 76.3 Lymphocytes % 11.9 L Monocytes % 8.9 Eosinophils % 1.8 Basophils % 0.2 Neutrophils # 8.1 H Lymphocytes # 1.3 Monocytes # 0.9 Eosinophils # 0.2 Basophils # 0.0 Nucleated Red Blood Cells # 0.0 Sodium Level 142 Potassium Level 3.3 L Chloride Level 93 L Carbon Dioxide Level 36 H Anion Gap 16 Blood Urea Nitrogen 4 L Creatinine 0.59 Glucose Level 238 H Calcium Level 8.7 Phosphorus Level 2.3 L Magnesium Level 1.8 Bedside Glucose 234 H Test 03/11/17 08:28 Bedside Glucose 233 H Medications Medications Current Medications Acetaminophen 650 mg 650 mg Q4H PRN [place] PAIN LEVEL 1-3 OR FEVER; Start 03/02/17 at 00:30 Piperacillin Sod/ Tazobactam Sod (Zosyn 3.375gm/ 100 ml (Pmx)) 100 ml @ 200 mls /hr Q8 IVPB Last administered on 03/11/17t 05:38; Admin Dose 200 MLS/HR; Start 03/02/17 at 00:30 Miscellaneous Information 1 ea NOTE XX ; Start 03/02/17 at 00:30 Glucose (Glutose) 15 gm Q15M PRN PO DECREASED GLUCOSE; Start 03/02/17 at 00:30 Glucose (Glutose) 22.5 gm Q15M PRN PO DECREASED GLUCOSE; Start 03/02/17 at 00: 30 Dextrose (D50w Syringe) 25 ml Q15M PRN IV DECREASED GLUCOSE; Start 03/02/17 at 00:30 Dextrose (D50w Syringe) 50 ml Q15M PRN IV DECREASED GLUCOSE; Start 03/02/17 at 00:30 Glucagon (Glucagen) 1 mg Q15M PRN IM DECREASED GLUCOSE; Start 03/02/17 at 00:30 Glucose (Glutose) 15 gm Q15M PRN BUCCAL DECREASED GLUCOSE; Start 03/02/17 at 00 :30 Pantoprazole (Protonix Iv) 40 mg BID@06,18 IV Last administered on 03/11/17 05 :38; Admin Dose 40 MG; Start 03/04/17 at 06:00 Insulin Aspart NOVOLOG *MILD* ALGORI... Q4 SC Last administered on 03/11/17 08 :32; Admin Dose 3 UNIT; Start 03/06/17 at 05:00 Norepinephrine/ Dextrose (Levophed/D5W) 500 ml @ 1.87 mls/hr TITRATE IV ; Start 03/06/17 at 07:00 Aspirin (Halfprin) 81 mg DAILY PO ; Start 03/07/17 at 09:00 Atorvastatin Calcium (Lipitor) 40 mg QHS PO ; Start 03/06/17 at 21:00 Diclofenac Sodium (Voltaren) 75 mg DAILY PO ; Start 03/07/17 at 09:00 Donepezil HCl (Aricept) 5 mg QHS PO ; Start 03/06/17 at 21:00 Hydralazine HCl (Apresoline) 10 mg Q6H PRN IV ELEVATED BLOOD PRESSURE Last administered on 03/11/17 06:54; Admin Dose 10 MG; Start 03/07/17 at 09:30 Aspirin (Aspirin) 300 mg DAILY [place] Last administered on 03/09/17 08:47; Admin Dose 300 MG; Start 03/09/17 at 09:00 Metoprolol Tartrate 25 mg 25 mg BID PO ; Start 03/09/17 at 09:00 Amiodarone HCl 900 mg/Dextrose 500 ml @ 0 mls/hr Q0M IV Last administered on t 20:04; Admin Dose 33.4 MLS/HR; Start 03/10/17 at 19:00; Stop 03/11/17 at 18:59 Potassium Phosphate/Sodium Chloride (K Phos (Meq)/NS) 259.0909 ml @ 64.773 m... ONCE IVPB ; Start 03/11/17 at 10:30; Stop 03/11/17 at 14:29 NATALIIA YAN NP Mar 11, 2017 10:38
--- NOTE | 2017-03-11 11:15 | CONS ---
Date/Time of Note Date/Time of Note DATE: 03/11/17 TIME: 11:13 Consult Date/Type/Reason Admit Date/Time Mar 01, 2017 at 20:20 Initial Consult Date 03/02/17 Type of Consultation: Pulmonary Ordering Provider: MICHELLE MORENO Subjective Patient still confused continues Ventimask oxygen Currently hemodynamically stable however tachycardic 110- 120 Continues on amiodarone drip Objective Vital Signs Date Time Temp Pulse Resp B/P Pulse Ox O2 Delivery O2 Flow Rate FiO2 03/11/17 10:30 129 18 102/51 95 03/11/17 10:00 Venturi Mask 03/11/17 08:00 15.0 03/11/17 08:00 98.1 03/11/17 04:40 40 Intake and Output 03/10/17 03/10/17 03/11/17 15:00 23:00 07:00 Intake Total 762 ml 800.2 ml 883.50 ml Output Total 1490 ml 1495 ml 600 ml Balance -728 ml -694.8 ml 283.50 ml Exam PHYSICAL EXAMINATION GENERAL: Elderly lady facemask oxygen confused intermittent agitation VITAL SIGNS: see below. HEENT: Pupils equal, round, and reactive to light. CARDIAC: S1, S2, 1/6 systolic ejection murmur CHEST: Diminished air entry bilaterally. ABDOMEN: Mildly distended. Bowel sounds present no guarding or rebound EXTREMITIES: No cyanosis, clubbing edema +1 NEUROLOGIC: Generalized weakness Results/Medications Result Diagram: 03/11/17 0430 03/11/17 0430 Results 24 hrs Laboratory Tests Test 03/10/17 13:20 03/10/17 17:16 03/10/17 20:59 03/11/17 00:48 Bedside Glucose 140 224 H 225 H 227 H Test 03/11/17 01:30 03/11/17 04:30 03/11/17 05:23 03/11/17 07:00 Blood Gas Specimen Source Blood arterial Blood arterial Arterial Blood Date Drawn 03/11/2017 1:55:00 AM 03/11/2017 7:10:59 AM Arterial Blood pH (Temp corrected) 7.378 7.439 Arterial Blood pCO2 (Temp correct) 61.2 H 51.5 H Arterial Blood pO2 (Temp corrected) 63.1 L 64.5 L Arterial Blood HCO3 35.2 H 34.1 H Arterial Blood Base Excess 8.4 H 8.7 H Arterial Blood Oxygen Saturation 93.2 L 93.6 L Pablo Test ACCEPTAB ACCEPTAB Arterial Blood Gas Puncture Site Right Radial Right Radial Arterial Blood Carboxyhemoglobin 0.3 0.3 Arterial Blood Methemoglobin 0.3 0.2 Blood Gas A-a O2 Differential 224.6 H 234.1 H Oxyhemoglobin Percent 92.6 L 93.1 Total Hemoglobin 10.9 L 10.4 L Blood Gas Temperature 37.0 37.0 Blood Gas Actual Respiration Rate 22 Blood Gas Modality MASK - VENTI MASK - VENTI FiO2 50.0 50.0 Blood Gas Notified Whom MG JLD Blood Gas Notified Time 03/11/2017 2:11:23 AM 03/11/2017 7:57:30 AM White Blood Count 10.6 Red Blood Count 3.24 #L Hemoglobin 9.6 #L Hematocrit 31.8 #L Mean Corpuscular Volume 98.1 Mean Corpuscular Hemoglobin 29.6 Mean Corpuscular Hemoglobin Concent 30.2 L Red Cell Distribution Width 14.5 Platelet Count 300 # Mean Platelet Volume 10.1 Neutrophils % 76.3 Lymphocytes % 11.9 L Monocytes % 8.9 Eosinophils % 1.8 Basophils % 0.2 Neutrophils # 8.1 H Lymphocytes # 1.3 Monocytes # 0.9 Eosinophils # 0.2 Basophils # 0.0 Nucleated Red Blood Cells # 0.0 Sodium Level 142 Potassium Level 3.3 L Chloride Level 93 L Carbon Dioxide Level 36 H Anion Gap 16 Blood Urea Nitrogen 4 L Creatinine 0.59 Glucose Level 238 H Calcium Level 8.7 Phosphorus Level 2.3 L Magnesium Level 1.8 Bedside Glucose 234 H Test 03/11/17 08:28 Bedside Glucose 233 H Medications Current Medications Acetaminophen 650 mg 650 mg Q4H PRN [place] PAIN LEVEL 1-3 OR FEVER; Start 03/02/17 at 00:30 Piperacillin Sod/ Tazobactam Sod (Zosyn 3.375gm/ 100 ml (Pmx)) 100 ml @ 200 mls /hr Q8 IVPB Last administered on 03/11/17t 05:38; Admin Dose 200 MLS/HR; Start 03/02/17 at 00:30 Miscellaneous Information 1 ea NOTE XX ; Start 03/02/17 at 00:30 Glucose (Glutose) 15 gm Q15M PRN PO DECREASED GLUCOSE; Start 03/02/17 at 00:30 Glucose (Glutose) 22.5 gm Q15M PRN PO DECREASED GLUCOSE; Start 03/02/17 at 00: 30 Dextrose (D50w Syringe) 25 ml Q15M PRN IV DECREASED GLUCOSE; Start 03/02/17 at 00:30 Dextrose (D50w Syringe) 50 ml Q15M PRN IV DECREASED GLUCOSE; Start 03/02/17 at 00:30 Glucagon (Glucagen) 1 mg Q15M PRN IM DECREASED GLUCOSE; Start 03/02/17 at 00:30 Glucose (Glutose) 15 gm Q15M PRN BUCCAL DECREASED GLUCOSE; Start 03/02/17 at 00 :30 Pantoprazole (Protonix Iv) 40 mg BID@06,18 IV Last administered on 03/11/17 05 :38; Admin Dose 40 MG; Start 03/04/17 at 06:00 Insulin Aspart NOVOLOG *MILD* ALGORI... Q4 SC Last administered on 03/11/17 08 :32; Admin Dose 3 UNIT; Start 03/06/17 at 05:00 Norepinephrine/ Dextrose (Levophed/D5W) 500 ml @ 1.87 mls/hr TITRATE IV ; Start 03/06/17 at 07:00 Aspirin (Halfprin) 81 mg DAILY PO ; Start 03/07/17 at 09:00 Atorvastatin Calcium (Lipitor) 40 mg QHS PO ; Start 03/06/17 at 21:00 Diclofenac Sodium (Voltaren) 75 mg DAILY PO ; Start 03/07/17 at 09:00 Donepezil HCl (Aricept) 5 mg QHS PO ; Start 03/06/17 at 21:00 Hydralazine HCl (Apresoline) 10 mg Q6H PRN IV ELEVATED BLOOD PRESSURE Last administered on 03/11/17 06:54; Admin Dose 10 MG; Start 03/07/17 at 09:30 Aspirin (Aspirin) 300 mg DAILY [place] Last administered on 03/09/17 08:47; Admin Dose 300 MG; Start 03/09/17 at 09:00 Metoprolol Tartrate 25 mg 25 mg BID PO ; Start 03/09/17 at 09:00 Amiodarone HCl 900 mg/Dextrose 500 ml @ 0 mls/hr Q0M IV Last administered on 20:04; Admin Dose 33.4 MLS/HR; Start 03/10/17 at 19:00; Stop 03/11/17 at 18:59 Potassium Phosphate/Sodium Chloride (K Phos (Meq)/NS) 259.0909 ml @ 64.773 m... ONCE IVPB Last administered on 03/11/17 11:13; Admin Dose 64.773 MLS/HR; Start 03/11/17 at 10:30; Stop 03/11/17 at 14:29 Assessment/Plan Chief Complaint/Hosp Course Assessment 1. Hypoxemic and hypercapnic respiratory failure likely secondary to community- acquired pneumonia now extubated from mechanical ventilation worsening hypoxemia likely secondary to pulmonary edema given last radiographic findings. 2. Atrial fibrillation with rapid ventricular rate likely exacerbated by hypoxemia and cardiac ischemia 3. 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 Status post septic shock secondary to above 4. Erosive gastritis on EGD findings. Nasogastric tube has been removed per GI recommendations 6. Delirium. Likely toxic metabolic. Plan 1. Continue diuretics 2. Broad-spectrum antibiotic coverage 3. Speech therapy evaluation 4. Nasal cannula oxygen 5. Continue insulin as needed. 6. May require reintubation if fails diuretics and supplemental O2 7. Continue rate control with amiodarone consider adding beta-ravinder as patient is hypertensive Disposition critical care time 40 minutes discussed with primary team and nursing staff Problems: MARY ALY MD, [facility] Mar 11, 2017 11:15
--- NOTE | 2017-03-11 12:15 | CONS ---
Date/Time of Note Date/Time of Note DATE: 03/11/17 TIME: 12:13 Assessment/Plan Assessment/Plan Chief Complaint/Hosp Course Patient was started on amiodarone drip secondary to rapid atrial fibrillation, she is lethargic looks comfortable on Ventimask Temperature 98.1 pulse 124 respirations 20 blood pressure 107/50 saturation 92- 95% on Ventimask WBC 10.6 H&H 9.6 and 31.8 platelets 300 neutrophils 76.3 BN 4 creatinine 0.59 Chest x-ray this morning revealed new pulmonary vascular congestion with mild interstitial edema Indwelling's Pierce left subclavian triple-lumen catheter Antibiotics: Zosyn day #11 Physical examination: Chronically ill-appearing elderly woman who is somewhat restless, in no distress. Head atraumatic normocephalic sclera nonicteric bugle mucosa dry. Neck is supple, trachea midline. Chest rise symmetrical breath sounds with scattered rhonchi. S1-S2. Abdomen soft bowel tones present. Extremities with trace edema. Assessment: 1. Status post septic shock 2. Resolving pneumonia possibly aspiration 3. Acute respiratory failure, fluid overload 4. Diabetes 5. Non-ST elevation [place] 6. Rapid atrial fibrillation, on amiodarone drip Plan: Clinically unchanged, continue present care, anti-aspiration measures, follow cardiology/pulmonary recommendations, DC antibiotics and observe. Will reculture as needed Discussed with RN Problems: Consultation Date/Type/Reason Admit Date/Time Mar 01, 2017 at 20:20 Initial Consult Date 03/02/17 Type of Consultation: id Referring Provider: MICHELLE MORENO Exam/Review of Systems Vital Signs Vitals Vital Signs Date Time Temp Pulse Resp B/P Pulse Ox O2 Delivery O2 Flow Rate FiO2 03/11/17 10:30 129 18 102/51 95 03/11/17 10:00 Venturi Mask 03/11/17 08:00 15.0 03/11/17 08:00 98.1 03/11/17 04:40 40 Intake and Output 03/10/17 03/10/17 03/11/17 15:00 23:00 07:00 Intake Total 762 ml 800.2 ml 883.50 ml Output Total 1490 ml 1495 ml 600 ml Balance -728 ml -694.8 ml 283.50 ml Results Result Diagram: 03/11/17 0430 03/11/17 0430 Results 24 hrs Laboratory Tests Test 03/10/17 13:20 03/10/17 17:16 03/10/17 20:59 03/11/17 00:48 Bedside Glucose 140 224 H 225 H 227 H Test 03/11/17 01:30 03/11/17 04:30 03/11/17 05:23 03/11/17 07:00 Blood Gas Specimen Source Blood arterial Blood arterial Arterial Blood Date Drawn 03/11/2017 1:55:00 AM 03/11/2017 7:10:59 AM Arterial Blood pH (Temp corrected) 7.378 7.439 Arterial Blood pCO2 (Temp correct) 61.2 H 51.5 H Arterial Blood pO2 (Temp corrected) 63.1 L 64.5 L Arterial Blood HCO3 35.2 H 34.1 H Arterial Blood Base Excess 8.4 H 8.7 H Arterial Blood Oxygen Saturation 93.2 L 93.6 L Pablo Test ACCEPTAB ACCEPTAB Arterial Blood Gas Puncture Site Right Radial Right Radial Arterial Blood Carboxyhemoglobin 0.3 0.3 Arterial Blood Methemoglobin 0.3 0.2 Blood Gas A-a O2 Differential 224.6 H 234.1 H Oxyhemoglobin Percent 92.6 L 93.1 Total Hemoglobin 10.9 L 10.4 L Blood Gas Temperature 37.0 37.0 Blood Gas Actual Respiration Rate 22 Blood Gas Modality MASK - VENTI MASK - VENTI FiO2 50.0 50.0 Blood Gas Notified Whom MG JLD Blood Gas Notified Time 03/11/2017 2:11:23 AM 03/11/2017 7:57:30 AM White Blood Count 10.6 Red Blood Count 3.24 #L Hemoglobin 9.6 #L Hematocrit 31.8 #L Mean Corpuscular Volume 98.1 Mean Corpuscular Hemoglobin 29.6 Mean Corpuscular Hemoglobin Concent 30.2 L Red Cell Distribution Width 14.5 Platelet Count 300 # Mean Platelet Volume 10.1 Neutrophils % 76.3 Lymphocytes % 11.9 L Monocytes % 8.9 Eosinophils % 1.8 Basophils % 0.2 Neutrophils # 8.1 H Lymphocytes # 1.3 Monocytes # 0.9 Eosinophils # 0.2 Basophils # 0.0 Nucleated Red Blood Cells # 0.0 Sodium Level 142 Potassium Level 3.3 L Chloride Level 93 L Carbon Dioxide Level 36 H Anion Gap 16 Blood Urea Nitrogen 4 L Creatinine 0.59 Glucose Level 238 H Calcium Level 8.7 Phosphorus Level 2.3 L Magnesium Level 1.8 Bedside Glucose 234 H Test 03/11/17 08:28 Bedside Glucose 233 H Medications Medications Current Medications Acetaminophen 650 mg 650 mg Q4H PRN [place] PAIN LEVEL 1-3 OR FEVER; Start 03/02/17 at 00:30 Piperacillin Sod/ Tazobactam Sod (Zosyn 3.375gm/ 100 ml (Pmx)) 100 ml @ 200 mls /hr Q8 IVPB Last administered on 03/11/17 05:38; Admin Dose 200 MLS/HR; Start 03/02/17 at 00:30 Miscellaneous Information 1 ea NOTE XX ; Start 03/02/17 at 00:30 Glucose (Glutose) 15 gm Q15M PRN PO DECREASED GLUCOSE; Start 03/02/17 at 00:30 Glucose (Glutose) 22.5 gm Q15M PRN PO DECREASED GLUCOSE; Start 03/02/17 at 00: 30 Dextrose (D50w Syringe) 25 ml Q15M PRN IV DECREASED GLUCOSE; Start 03/02/17 at 00:30 Dextrose (D50w Syringe) 50 ml Q15M PRN IV DECREASED GLUCOSE; Start 03/02/17 at 00:30 Glucagon (Glucagen) 1 mg Q15M PRN IM DECREASED GLUCOSE; Start 03/02/17 at 00:30 Glucose (Glutose) 15 gm Q15M PRN BUCCAL DECREASED GLUCOSE; Start 03/02/17 at 00 :30 Pantoprazole (Protonix Iv) 40 mg BID@06,18 IV Last administered on 03/11/17 05 :38; Admin Dose 40 MG; Start 03/04/17 at 06:00 Insulin Aspart NOVOLOG *MILD* ALGORI... Q4 SC Last administered on 03/11/17 08 :32; Admin Dose 3 UNIT; Start 03/06/17 at 05:00 Norepinephrine/ Dextrose (Levophed/D5W) 500 ml @ 1.87 mls/hr TITRATE IV ; Start 03/06/17 at 07:00 Aspirin (Halfprin) 81 mg DAILY PO ; Start 03/07/17 at 09:00 Atorvastatin Calcium (Lipitor) 40 mg QHS PO ; Start 03/06/17 at 21:00 Diclofenac Sodium (Voltaren) 75 mg DAILY PO ; Start 03/07/17 at 09:00 Donepezil HCl (Aricept) 5 mg QHS PO ; Start 03/06/17 at 21:00 Hydralazine HCl (Apresoline) 10 mg Q6H PRN IV ELEVATED BLOOD PRESSURE Last administered on 03/11/17 06:54; Admin Dose 10 MG; Start 03/07/17 at 09:30 Aspirin (Aspirin) 300 mg DAILY [place] Last administered on 03/09/17 08:47; Admin Dose 300 MG; Start 03/09/17 at 09:00 Metoprolol Tartrate 25 mg 25 mg BID PO ; Start 03/09/17 at 09:00 Amiodarone HCl 900 mg/Dextrose 500 ml @ 0 mls/hr Q0M IV Last administered on 20:04; Admin Dose 33.4 MLS/HR; Start 03/10/17 at 19:00; Stop 03/11/17 at 18:59 Potassium Phosphate/Sodium Chloride (K Phos (Meq)/NS) 259.0909 ml @ 64.773 m... ONCE IVPB Last administered on 03/11/17 11:13; Admin Dose 64.773 MLS/HR; Start 03/11/17 at 10:30; Stop 03/11/17 at 14:29 HAO CUTLER NP Mar 11, 2017 12:15
--- NOTE | 2017-03-11 15:25 | PN ---
Date/Time of Note Date/Time of Note DATE: 03/11/17 TIME: 15:23 Assessment/Plan VTE Prophylaxis VTE Prophylaxis Intervention: other Lines/Catheters IV Catheter Type (from Nrs): Central Line Central line still needed: Yes Urinary Cath still in place: Yes Reason Cath still needed: other (indicate) Assessment/Plan Chief Complaint/Hosp Course 1. P afib with RVR: 2. acute hypoxemic respiratory failure: extubated now but still very hypoxemic 3. + troponin: c.w NSTEMI due to demand ischemia due to above 4. DM and severely elevated glucose: controlled with insulin 5. dyslipidemia 6. pneumonia/ sepsis 7. shock : appear to be related to sepsis: currently off of levophed 8. hx memory impairment 9. anemia and GI bleed: stable now 10. hypo K. RESUME ASA off of plavix due to above off of cardizem drip unable to take any po meds now. will start po betablocker once able to take po meds DM Control with insulin echo shows normal EF replace lytes including K and Mg prn. Problems: Subjective 24 Hr Interval Summary Free Text/Dictation CARDIOLOGY FOLLOW UP NOTE/ critical care note d/w staff in ICU and rhythm was reviewed. pt remains in NSR/ SINUS tachy and frequent PVC/ PAC. . pt is EXTUBATED 03/08 no more bleeding is reported. she denies any chest pain to me pt has been less hypoxemic OBJECTIVE: General: confused and combative HEENT: NC/AT. pupils are constricted. round. NECK: NO JVD. no stridor. CV: RRR. systolic murmur; no gallop or rubs. PULM: + diffuse rhonchi. GI: SOFT, NT, ND, no rebound or guarding Extremity: trace B/L LE edema. no clubbing. neuro: awake and alert Psych: combative. rectal: deferred : normal ECHO personally reviewed: 1. Normal left ventricular systolic function. Normal left ventricular cavity size. Mild concentric left ventricular hypertrophy. Ejection fraction is visually estimated at 55 %. Tissue Doppler/Mitral Doppler indices are consistent with impaired relaxation (Stage I diastolic dysfunction). 2. The left atrium is normal in size. 3. Mitral valve leaflets appear mildly thickened. Mild mitral annular calcification. Trace mitral regurgitation. 4. No significant aortic stenosis or insufficiency. Aortic sclerosis without stenosis. 5. Normal appearance of the tricuspid valve. Estimated peak PA systolic pressure 26 mmHg. There is mild tricuspid regurgitation. Exam/Review of Systems Vital Signs Vitals Vital Signs Date Time Temp Pulse Resp B/P Pulse Ox O2 Delivery O2 Flow Rate FiO2 03/11/17 14:30 128 16 96/50 91 03/11/17 14:00 Venturi Mask 15.0 03/11/17 12:00 98.4 03/11/17 04:40 40 Intake and Output 03/10/17 03/10/17 03/11/17 15:00 23:00 07:00 Intake Total 762 ml 800.2 ml 883.50 ml Output Total 1490 ml 1495 ml 600 ml Balance -728 ml -694.8 ml 283.50 ml Results Result Diagram: 03/11/17 0430 03/11/17 0430 Results 24 hrs Laboratory Tests Test 03/10/17 17:16 03/10/17 20:59 03/11/17 00:48 03/11/17 01:30 Bedside Glucose 224 H 225 H 227 H Blood Gas Specimen Source Blood arterial Arterial Blood Date Drawn 03/11/2017 1:55:00 AM Arterial Blood pH (Temp corrected) 7.378 Arterial Blood pCO2 (Temp correct) 61.2 H Arterial Blood pO2 (Temp corrected) 63.1 L Arterial Blood HCO3 35.2 H Arterial Blood Base Excess 8.4 H Arterial Blood Oxygen Saturation 93.2 L Pablo Test ACCEPTAB Arterial Blood Gas Puncture Site Right Radial Arterial Blood Carboxyhemoglobin 0.3 Arterial Blood Methemoglobin 0.3 Blood Gas A-a O2 Differential 224.6 H Oxyhemoglobin Percent 92.6 L Total Hemoglobin 10.9 L Blood Gas Temperature 37.0 Blood Gas Actual Respiration Rate 22 Blood Gas Modality MASK - VENTI FiO2 50.0 Blood Gas Notified Whom MG Blood Gas Notified Time 03/11/2017 2:11:23 AM Test 03/11/17 04:30 03/11/17 05:23 03/11/17 07:00 03/11/17 08:28 White Blood Count 10.6 Red Blood Count 3.24 #L Hemoglobin 9.6 #L Hematocrit 31.8 #L Mean Corpuscular Volume 98.1 Mean Corpuscular Hemoglobin 29.6 Mean Corpuscular Hemoglobin Concent 30.2 L Red Cell Distribution Width 14.5 Platelet Count 300 # Mean Platelet Volume 10.1 Neutrophils % 76.3 Lymphocytes % 11.9 L Monocytes % 8.9 Eosinophils % 1.8 Basophils % 0.2 Neutrophils # 8.1 H Lymphocytes # 1.3 Monocytes # 0.9 Eosinophils # 0.2 Basophils # 0.0 Nucleated Red Blood Cells # 0.0 Sodium Level 142 Potassium Level 3.3 L Chloride Level 93 L Carbon Dioxide Level 36 H Anion Gap 16 Blood Urea Nitrogen 4 L Creatinine 0.59 Glucose Level 238 H Calcium Level 8.7 Phosphorus Level 2.3 L Magnesium Level 1.8 Bedside Glucose 234 H 233 H Blood Gas Specimen Source Blood arterial Arterial Blood Date Drawn 03/11/2017 7:10:59 AM Arterial Blood pH (Temp corrected) 7.439 Arterial Blood pCO2 (Temp correct) 51.5 H Arterial Blood pO2 (Temp corrected) 64.5 L Arterial Blood HCO3 34.1 H Arterial Blood Base Excess 8.7 H Arterial Blood Oxygen Saturation 93.6 L Pablo Test ACCEPTAB Arterial Blood Gas Puncture Site Right Radial Arterial Blood Carboxyhemoglobin 0.3 Arterial Blood Methemoglobin 0.2 Blood Gas A-a O2 Differential 234.1 H Oxyhemoglobin Percent 93.1 Total Hemoglobin 10.4 L Blood Gas Temperature 37.0 Blood Gas Modality MASK - VENTI FiO2 50.0 Blood Gas Notified Whom JLD Blood Gas Notified Time 03/11/2017 7:57:30 AM Test 03/11/17 13:12 Bedside Glucose 102 Medications Medications Current Medications Acetaminophen (Tylenol Supp) 650 mg Q4H PRN [place] PAIN LEVEL 1-3 OR FEVER; Start 03/02/17 at 00:30 Miscellaneous Information 1 ea NOTE XX ; Start 03/02/17 at 00:30 Glucose (Glutose) 15 gm Q15M PRN PO DECREASED GLUCOSE; Start 03/02/17 at 00:30 Glucose (Glutose) 22.5 gm Q15M PRN PO DECREASED GLUCOSE; Start 03/02/17 at 00: 30 Dextrose (D50w Syringe) 25 ml Q15M PRN IV DECREASED GLUCOSE; Start 03/02/17 at 00:30 Dextrose (D50w Syringe) 50 ml Q15M PRN IV DECREASED GLUCOSE; Start 03/02/17 at 00:30 Glucagon (Glucagen) 1 mg Q15M PRN IM DECREASED GLUCOSE; Start 03/02/17 at 00:30 Glucose (Glutose) 15 gm Q15M PRN BUCCAL DECREASED GLUCOSE; Start 03/02/17 at 00 :30 Pantoprazole (Protonix Iv) 40 mg BID@06,18 IV Last administered on 03/11/17 05 :38; Admin Dose 40 MG; Start 03/04/17 at 06:00 Insulin Aspart NOVOLOG *MILD* ALGORI... Q4 SC Last administered on 03/11/17 08 :32; Admin Dose 3 UNIT; Start 03/06/17 at 05:00 Norepinephrine/ Dextrose (Levophed/D5W) 500 ml @ 1.87 mls/hr TITRATE IV ; Start 03/06/17 at 07:00 Aspirin (Halfprin) 81 mg DAILY PO ; Start 03/07/17 at 09:00 Atorvastatin Calcium (Lipitor) 40 mg QHS PO ; Start 03/06/17 at 21:00 Diclofenac Sodium (Voltaren) 75 mg DAILY PO ; Start 03/07/17 at 09:00 Donepezil HCl (Aricept) 5 mg QHS PO ; Start 03/06/17 at 21:00 Hydralazine HCl (Apresoline) 10 mg Q6H PRN IV ELEVATED BLOOD PRESSURE Last administered on 03/11/17 06:54; Admin Dose 10 MG; Start 03/07/17 at 09:30 Aspirin (Aspirin) 300 mg DAILY [place] Last administered on 03/11/17 13:29; Admin Dose 300 MG; Start 03/09/17 at 09:00 Metoprolol Tartrate 25 mg 25 mg BID PO ; Start 03/09/17 at 09:00 Amiodarone HCl/ Dextrose (Cordarone Iv/ D5W) 500 ml @ 0 mls/hr Q0M IV Last administered on 03/10/17 20:04; Admin Dose 33.4 MLS/HR; Start 03/10/17 at 19:00 ; Stop 03/11/17 at 18:59 TYREE MCKOY MD Mar 11, 2017 15:25
[2017-03-11] MEDS: DONEPEZIL 5 MG TAB PO SCH (20:13)
[2017-03-11] MEDS: ATORVASTATIN 40 MG TAB PO SCH (20:13)
[2017-03-11] MEDS ORDERED: DILTIAZEM-D5W 125MG/125ML DRIP 125 ML IV SCH (22:00)
[2017-03-11] MEDS: DILTIAZEM-D5W 125MG/125ML DRIP 125 ML IV SCH (22:38)
[2017-03-11] MEDS: morphine 4 MG/ML VIAL IV PRN (23:40)
[2017-03-12] VITALS (59 sets, daily range): BP systolic 73–144; BP diastolic 39–124; PULSE 71–154; RESP 10–32
[2017-03-12 00:32] LABS: AADO2 Arterial 221.6 mmHg (7.0-24.0); Arterial Base Excess 11.7 mmol/L (-3.0-3); Arterial COHb 0.3 % (0.0-3.0); Arterial Fraction of Oxyhgb 91.4 % (93.0-99.0); Arterial HCO3 38.9 mmol/L (22.0-26.0); Arterial MetHb 0.3 % (0.0-1.5); Arterial Total Hemglobin 11.6 g/dl (12.0-18.0); MODE MASK - VENTI
[2017-03-12] MEDS: INSULIN ASPART [NOVOLOG] 3 ML PEN SC SCH ×6 (02:11→21:35)
[2017-03-12] MEDS: morphine 4 MG/ML VIAL IV PRN ×3 (04:08→14:49)
[2017-03-12 04:52] LABS: BASOPHILS % 0.3 % (0.0-2.0); EOSINOPHILS # 0.2 10^3/ul (0.0-0.5); EOSINOPHILS % 1.9 % (0.0-7.0); HEMATOCRIT 32.1 % (37.0-47.0); HEMOGLOBIN 9.6 g/dl (12.0-16.0); LYMPHOCYTES # 1.3 10^3/ul (0.8-2.9); LYMPHOCYTES % 14.2 % (15.0-51.0); MEAN CORPUSCULAR HEMOGLOBIN 29.8 pg (29.0-33.0); MEAN CORPUSCULAR HGB CONC 29.9 g/dl (32.0-37.0); MEAN CORPUSCULAR VOLUME 99.7 fl (82.0-101.0); MEAN PLATELET VOLUME 10.4 fl (7.4-10.4); MONOCYTE # 0.9 10^3/ul (0.3-0.9); MONOCYTES % 9.1 % (0.0-11.0); NEUTROPHIL # 6.9 10^3/ul (1.6-7.5); NEUTROPHILS % 73.9 % (39.0-77.0); PLATELET COUNT 350 10^3/UL (140-415); RED BLOOD COUNT 3.22 10^6/ul (4.20-5.40); RED CELL DISTRIBUTION WIDTH 14.1 % (11.5-14.5); WHITE BLOOD COUNT 9.3 10^3/ul (4.8-10.8)
[2017-03-12 05:34] LABS: CALCIUM 8.5 mg/dl (8.4-10.2); CREATININE 0.72 mg/dl (0.44-1.00); POTASSIUM 3.4 mmol/L (3.5-5.1)
[2017-03-12] MEDS: PANTOPRAZOLE 40 MG INJ IV SCH ×2 (06:14→17:23)
[2017-03-12] MEDS: FUROSEMIDE 40 MG INJ IV SCH ×2 (06:18→17:23)
[2017-03-12 06:54] LABS: MAGNESIUM 1.4 mg/dl (1.7-2.5); PHOSPHORUS 2.7 mg/dl (2.5-4.9)
[2017-03-12] MEDS ORDERED: POTASSIUM CHLORIDE 250 ML IVPB ONE (07:00)
[2017-03-12] MEDS ORDERED: DIGOXIN 500 MCG INJ IV ONE (07:00)
--- NOTE | 2017-03-12 08:34 | CONS ---
Date/Time of Note Date/Time of Note DATE: 03/12/17 TIME: 08:32 Assessment/Plan Assessment/Plan Chief Complaint/Hosp Course This is an 86-year-old female who was in the intensive care unit after she presented to [facility] with respiratory failure, she is intubated. Patient also has severe sepsis history of diabetes hypertension fluid and electrolyte abnormalities and mental status changes. By history patient's family lives in [place] she only has a caregiver living with her here. I'm access with ongoing level of care based more on communication with family members. It is my understanding that case management has a phone number to family members that is available in patient's medical records. Problems: Consultation Date/Type/Reason Admit Date/Time Mar 01, 2017 at 20:20 Initial Consult Date 03/08/17 Type of Consultation: Palliative CARE Referring Provider: MICHELLE MORENO 24 HR Interval Summary Free Text/Dictation Post dated progress note for patient seen March 10 I have been in the process of trying to contact family members with case management. It is my understanding that first-degree family members are located in [facility] but there is another family member who is locally but has not been available. We will continue to try and contact family members to address ongoing level of care. Exam/Review of Systems Vital Signs Vitals Vital Signs Date Time Temp Pulse Resp B/P Pulse Ox O2 Delivery O2 Flow Rate FiO2 03/12/17 08:00 Venti Mask 15.0 03/12/17 06:45 154 26 113/58 91 03/12/17 04:36 50 03/12/17 04:00 98.4 Intake and Output 03/11/17 03/11/17 03/12/17 15:00 23:00 07:00 Intake Total 440.3709 ml 76.64 ml 70 ml Output Total 1150 ml 1280 ml 280 ml Balance -709.6291 ml -1203.36 ml -210 ml Results Result Diagram: 03/12/17 0430 03/12/17 0430 Results 24 hrs Laboratory Tests Test 03/11/17 13:12 03/11/17 17:38 03/11/17 20:21 03/12/17 00:09 Bedside Glucose 102 179 106 Blood Gas Specimen Source Blood arterial Arterial Blood Date Drawn 03/12/2017 12:10:39 AM Arterial Blood pH (Temp corrected) 7.392 Arterial Blood pCO2 (Temp correct) 65.5 H Arterial Blood pO2 (Temp corrected) 61.2 L Arterial Blood HCO3 38.9 H Arterial Blood Base Excess 11.7 H Arterial Blood Oxygen Saturation 92.0 L Pablo Test N/A Arterial Blood Gas Puncture Site Right Brachial Arterial Blood Carboxyhemoglobin 0.3 Arterial Blood Methemoglobin 0.3 Blood Gas A-a O2 Differential 221.6 H Oxyhemoglobin Percent 91.4 L Total Hemoglobin 11.6 L Blood Gas Temperature 37.0 Blood Gas Modality MASK - VENTI FiO2 50.0 Blood Gas Notified Whom UP Blood Gas Notified Time 03/12/2017 12:32:35 AM Test 03/12/17 01:17 03/12/17 04:30 03/12/17 05:36 Bedside Glucose 160 207 White Blood Count 9.3 Red Blood Count 3.22 L Hemoglobin 9.6 L Hematocrit 32.1 L Mean Corpuscular Volume 99.7 Mean Corpuscular Hemoglobin 29.8 Mean Corpuscular Hemoglobin Concent 29.9 L Red Cell Distribution Width 14.1 Platelet Count 350 Mean Platelet Volume 10.4 Neutrophils % 73.9 Lymphocytes % 14.2 L Monocytes % 9.1 Eosinophils % 1.9 Basophils % 0.3 Nucleated Red Blood Cells % 0.0 Neutrophils # 6.9 Lymphocytes # 1.3 Monocytes # 0.9 Eosinophils # 0.2 Basophils # 0.0 Nucleated Red Blood Cells # 0.0 Sodium Level 144 Potassium Level 3.4 L Chloride Level 95 L Carbon Dioxide Level 38 H Anion Gap 14 Blood Urea Nitrogen 9 Creatinine 0.72 Glucose Level 193 Calcium Level 8.5 Phosphorus Level 2.7 Magnesium Level 1.4 L Medications Medications Current Medications Acetaminophen (Tylenol Supp) 650 mg Q4H PRN [place] PAIN LEVEL 1-3 OR FEVER; Start 03/02/17 at 00:30 Miscellaneous Information 1 ea NOTE XX ; Start 03/02/17 at 00:30 Glucose (Glutose) 15 gm Q15M PRN PO DECREASED GLUCOSE; Start 03/02/17 at 00:30 Glucose (Glutose) 22.5 gm Q15M PRN PO DECREASED GLUCOSE; Start 03/02/17 at 00: 30 Dextrose (D50w Syringe) 25 ml Q15M PRN IV DECREASED GLUCOSE; Start 03/02/17 at 00:30 Dextrose (D50w Syringe) 50 ml Q15M PRN IV DECREASED GLUCOSE; Start 03/02/17 at 00:30 Glucagon (Glucagen) 1 mg Q15M PRN IM DECREASED GLUCOSE; Start 03/02/17 at 00:30 Glucose (Glutose) 15 gm Q15M PRN BUCCAL DECREASED GLUCOSE; Start 03/02/17 at 00 :30 Pantoprazole (Protonix Iv) 40 mg BID@06,18 IV Last administered on 03/12/17 06 :14; Admin Dose 40 MG; Start 03/04/17 at 06:00 Insulin Aspart NOVOLOG *MILD* ALGORI... Q4 SC Last administered on 03/12/17 05 :42; Admin Dose 2 UNIT; Start 03/06/17 at 05:00 Norepinephrine/ Dextrose (Levophed/D5W) 500 ml @ 1.87 mls/hr TITRATE IV ; Start 03/06/17 at 07:00 Aspirin (Halfprin) 81 mg DAILY PO ; Start 03/07/17 at 09:00 Atorvastatin Calcium (Lipitor) 40 mg QHS PO ; Start 03/06/17 at 21:00 Diclofenac Sodium (Voltaren) 75 mg DAILY PO ; Start 03/07/17 at 09:00 Donepezil HCl (Aricept) 5 mg QHS PO ; Start 03/06/17 at 21:00 Hydralazine HCl (Apresoline) 10 mg Q6H PRN IV ELEVATED BLOOD PRESSURE Last administered on 03/11/17 06:54; Admin Dose 10 MG; Start 03/07/17 at 09:30 Aspirin (Aspirin) 300 mg DAILY [place] Last administered on 03/11/17 13:29; Admin Dose 300 MG; Start 03/09/17 at 09:00 Metoprolol Tartrate 25 mg 25 mg BID PO ; Start 03/09/17 at 09:00 Diltiazem HCl (Cardizem-D5W 125 Mg/125 ml Drip) 125 ml @ 5 mls/hr TITRATE IV Last administered on 03/11/17 22:38; Admin Dose 10 MLS/HR; Start 03/11/17 at 22 :30 Morphine Sulfate 3 mg 3 mg Q4H PRN IV PAIN LEVEL 6-10 Last administered on 03/12 04:08; Admin Dose 3 MG; Start 03/12/17 at 00:00 Potassium Chloride (KCl 40 MEQ/250 ML NS) 250 ml @ 62.5 mls/hr ONCE ONCE IVPB Last administered on 03/12/17t 06:55; Admin Dose 62.5 MLS/HR; Start 03/12/17 at 07:00; Stop 03/12/17 at 10:59 CARY WALTER Mar 12, 2017 08:34
--- NOTE | 2017-03-12 08:40 | CONS ---
Date/Time of Note Date/Time of Note DATE: 03/12/17 TIME: 08:39 Assessment/Plan Assessment/Plan Chief Complaint/Hosp Course This is an 86-year-old female who was in the intensive care unit after she presented to [facility] with respiratory failure, she is intubated. Patient also has severe sepsis history of diabetes hypertension fluid and electrolyte abnormalities and mental status changes. By history patient's family lives in [place] she only has a caregiver living with her here. I'm access with ongoing level of care based more on communication with family members. It is my understanding that case management has a phone number to family members that is available in patient's medical records. Problems: Additional Assessment/Plan dditional Assessment/Plan Family conference done on March 10. Patient's daughter granddaughter and son-in- law were in attendance. We reviewed patient's overall medical condition prognosis for recovery. Issues that were addressed with family members include that person is making decision on patient's behalf background social his family members hopes perspectives patient's illnesses hopes acceptable quality of spheres concerns strengths cultural preference and communications preferences family members are devastated by her current medical condition but very understanding estimated prognosis was discussed with family members which was conveyed the patient would probably live for very short period of time peer there are no pain and symptom management issues, psychosocial social issues were addressed with family members ethical issues additionally CODE STATUS. Because there is a son who is visited patient however does not participate in ongoing decision making it was still decided to withhold changing CODE STATUS or change in level of her care until family members can organize the conference with the son. However it was stated also that he is less involved with these family matters as compared to other children including those that lives in [place]. Those family members available felt that he would not want to be involved with decision-making. However my recommendations were to try and contact him for the next day, if he is unavailable and family members here can make decisions on CODE STATUS changes and ongoing level of care including comfort measures. Copies To: Copies To: Consultation Date/Type/Reason Admit Date/Time Mar 01, 2017 at 20:20 Initial Consult Date 03/08/17 Type of Consultation: Palliative CARE Referring Provider: MICHELLE MORENO Exam/Review of Systems Vital Signs Vitals Vital Signs Date Time Temp Pulse Resp B/P Pulse Ox O2 Delivery O2 Flow Rate FiO2 03/12/17 08:00 Venti Mask 15.0 03/12/17 06:45 154 26 113/58 91 03/12/17 04:36 50 03/12/17 04:00 98.4 Intake and Output 03/11/17 03/11/17 03/12/17 15:00 23:00 07:00 Intake Total 440.3709 ml 76.64 ml 70 ml Output Total 1150 ml 1280 ml 280 ml Balance -709.6291 ml -1203.36 ml -210 ml Results Result Diagram: 03/12/17 0430 03/12/17 0430 Results 24 hrs Laboratory Tests Test 03/11/17 13:12 03/11/17 17:38 03/11/17 20:21 03/12/17 00:09 Bedside Glucose 102 179 106 Blood Gas Specimen Source Blood arterial Arterial Blood Date Drawn 03/12/2017 12:10:39 AM Arterial Blood pH (Temp corrected) 7.392 Arterial Blood pCO2 (Temp correct) 65.5 H Arterial Blood pO2 (Temp corrected) 61.2 L Arterial Blood HCO3 38.9 H Arterial Blood Base Excess 11.7 H Arterial Blood Oxygen Saturation 92.0 L Pablo Test N/A Arterial Blood Gas Puncture Site Right Brachial Arterial Blood Carboxyhemoglobin 0.3 Arterial Blood Methemoglobin 0.3 Blood Gas A-a O2 Differential 221.6 H Oxyhemoglobin Percent 91.4 L Total Hemoglobin 11.6 L Blood Gas Temperature 37.0 Blood Gas Modality MASK - VENTI FiO2 50.0 Blood Gas Notified Whom UP Blood Gas Notified Time 03/12/2017 12:32:35 AM Test 03/12/17 01:17 03/12/17 04:30 03/12/17 05:36 Bedside Glucose 160 207 White Blood Count 9.3 Red Blood Count 3.22 L Hemoglobin 9.6 L Hematocrit 32.1 L Mean Corpuscular Volume 99.7 Mean Corpuscular Hemoglobin 29.8 Mean Corpuscular Hemoglobin Concent 29.9 L Red Cell Distribution Width 14.1 Platelet Count 350 Mean Platelet Volume 10.4 Neutrophils % 73.9 Lymphocytes % 14.2 L Monocytes % 9.1 Eosinophils % 1.9 Basophils % 0.3 Nucleated Red Blood Cells % 0.0 Neutrophils # 6.9 Lymphocytes # 1.3 Monocytes # 0.9 Eosinophils # 0.2 Basophils # 0.0 Nucleated Red Blood Cells # 0.0 Sodium Level 144 Potassium Level 3.4 L Chloride Level 95 L Carbon Dioxide Level 38 H Anion Gap 14 Blood Urea Nitrogen 9 Creatinine 0.72 Glucose Level 193 Calcium Level 8.5 Phosphorus Level 2.7 Magnesium Level 1.4 L Medications Medications Current Medications Acetaminophen (Tylenol Supp) 650 mg Q4H PRN [place] PAIN LEVEL 1-3 OR FEVER; Start 03/02/17 at 00:30 Miscellaneous Information 1 ea NOTE XX ; Start 03/02/17 at 00:30 Glucose (Glutose) 15 gm Q15M PRN PO DECREASED GLUCOSE; Start 03/02/17 at 00:30 Glucose (Glutose) 22.5 gm Q15M PRN PO DECREASED GLUCOSE; Start 03/02/17 at 00: 30 Dextrose (D50w Syringe) 25 ml Q15M PRN IV DECREASED GLUCOSE; Start 03/02/17 at 00:30 Dextrose (D50w Syringe) 50 ml Q15M PRN IV DECREASED GLUCOSE; Start 03/02/17 at 00:30 Glucagon (Glucagen) 1 mg Q15M PRN IM DECREASED GLUCOSE; Start 03/02/17 at 00:30 Glucose (Glutose) 15 gm Q15M PRN BUCCAL DECREASED GLUCOSE; Start 03/02/17 at 00 :30 Pantoprazole (Protonix Iv) 40 mg BID@06,18 IV Last administered on 03/12/17 06 :14; Admin Dose 40 MG; Start 03/04/17 at 06:00 Insulin Aspart NOVOLOG *MILD* ALGORI... Q4 SC Last administered on 03/12/17 05 :42; Admin Dose 2 UNIT; Start 03/06/17 at 05:00 Norepinephrine/ Dextrose (Levophed/D5W) 500 ml @ 1.87 mls/hr TITRATE IV ; Start 03/06/17 at 07:00 Aspirin (Halfprin) 81 mg DAILY PO ; Start 03/07/17 at 09:00 Atorvastatin Calcium (Lipitor) 40 mg QHS PO ; Start 03/06/17 at 21:00 Diclofenac Sodium (Voltaren) 75 mg DAILY PO ; Start 03/07/17 at 09:00 Donepezil HCl (Aricept) 5 mg QHS PO ; Start 03/06/17 at 21:00 Hydralazine HCl (Apresoline) 10 mg Q6H PRN IV ELEVATED BLOOD PRESSURE Last administered on 03/11/17 06:54; Admin Dose 10 MG; Start 03/07/17 at 09:30 Aspirin (Aspirin) 300 mg DAILY SD Last administered on 03/11/17 13:29; Admin Dose 300 MG; Start 03/09/17 at 09:00 Metoprolol Tartrate 25 mg 25 mg BID PO ; Start 03/09/17 at 09:00 Diltiazem HCl (Cardizem-D5W 125 Mg/125 ml Drip) 125 ml @ 5 mls/hr TITRATE IV Last administered on 03/11/17 22:38; Admin Dose 10 MLS/HR; Start 03/11/17 at 22 :30 Morphine Sulfate 3 mg 3 mg Q4H PRN IV PAIN LEVEL 6-10 Last administered on 03/12 04:08; Admin Dose 3 MG; Start 03/12/17 at 00:00 Potassium Chloride (KCl 40 MEQ/250 ML NS) 250 ml @ 62.5 mls/hr ONCE ONCE IVPB Last administered on 03/12/17 06:55; Admin Dose 62.5 MLS/HR; Start 03/12/17 at 07:00; Stop 03/12/17 at 10:59 CARY WALTER Mar 12, 2017 08:40
[2017-03-12] MEDS: METOPROLOL 25 MG TAB PO SCH ×2 (08:56→20:13)
[2017-03-12] MEDS: ASPIRIN (EC) 81 MG TAB PO SCH (08:56)
[2017-03-12] MEDS: DICLOFENAC (EC) 75 MG TAB PO SCH (08:57)
[2017-03-12] MEDS ORDERED: AMIODARONE 900 MG in DEXTROSE 5% 482 ML IV SCH (09:00)
[2017-03-12] MEDS ORDERED: MAGNESIUM SULFATE 1 GM/D5W 100 ML IVPB ONE (09:00)
[2017-03-12] MEDS ORDERED: AMIODARONE 150MG/D5W BOLUS 100 ML IV ONE (09:00)
--- NOTE | 2017-03-12 09:00 | CONS ---
Date/Time of Note Date/Time of Note DATE: 03/12/17 TIME: 08:58 Assessment/Plan Assessment/Plan Chief Complaint/Hosp Course This is an 86-year-old female who was in the intensive care unit after she presented to [facility] with respiratory failure, she is intubated. Patient also has severe sepsis history of diabetes hypertension fluid and electrolyte abnormalities and mental status changes. By history patient's family lives in [place] she only has a caregiver living with her here. I'm access with ongoing level of care based more on communication with family members. It is my understanding that case management has a phone number to family members that is available in patient's medical records. Problems: Consultation Date/Type/Reason Admit Date/Time Mar 01, 2017 at 20:20 Initial Consult Date 03/08/17 Type of Consultation: Palliative CARE Referring Provider: MICHELLE MORENO 24 HR Interval Summary Free Text/Dictation The dictation dated 03/12 was transcribed to wrong patient's medical records and is erroneous and is to be disregarded. Exam/Review of Systems Vital Signs Vitals Vital Signs Date Time Temp Pulse Resp B/P Pulse Ox O2 Delivery O2 Flow Rate FiO2 03/12/17 08:00 Venti Mask 15.0 03/12/17 06:45 154 26 113/58 91 03/12/17 04:36 50 03/12/17 04:00 98.4 Intake and Output 03/11/17 03/11/17 03/12/17 15:00 23:00 07:00 Intake Total 440.3709 ml 76.64 ml 70 ml Output Total 1150 ml 1280 ml 280 ml Balance -709.6291 ml -1203.36 ml -210 ml Results Result Diagram: 03/12/17 0430 03/12/17 0430 Results 24 hrs Laboratory Tests Test 03/11/17 13:12 03/11/17 17:38 03/11/17 20:21 03/12/17 00:09 Bedside Glucose 102 179 106 Blood Gas Specimen Source Blood arterial Arterial Blood Date Drawn 03/12/2017 12:10:39 AM Arterial Blood pH (Temp corrected) 7.392 Arterial Blood pCO2 (Temp correct) 65.5 H Arterial Blood pO2 (Temp corrected) 61.2 L Arterial Blood HCO3 38.9 H Arterial Blood Base Excess 11.7 H Arterial Blood Oxygen Saturation 92.0 L Pablo Test N/A Arterial Blood Gas Puncture Site Right Brachial Arterial Blood Carboxyhemoglobin 0.3 Arterial Blood Methemoglobin 0.3 Blood Gas A-a O2 Differential 221.6 H Oxyhemoglobin Percent 91.4 L Total Hemoglobin 11.6 L Blood Gas Temperature 37.0 Blood Gas Modality MASK - VENTI FiO2 50.0 Blood Gas Notified Whom UP Blood Gas Notified Time 03/12/2017 12:32:35 AM Test 03/12/17 01:17 03/12/17 04:30 03/12/17 05:36 Bedside Glucose 160 207 White Blood Count 9.3 Red Blood Count 3.22 L Hemoglobin 9.6 L Hematocrit 32.1 L Mean Corpuscular Volume 99.7 Mean Corpuscular Hemoglobin 29.8 Mean Corpuscular Hemoglobin Concent 29.9 L Red Cell Distribution Width 14.1 Platelet Count 350 Mean Platelet Volume 10.4 Neutrophils % 73.9 Lymphocytes % 14.2 L Monocytes % 9.1 Eosinophils % 1.9 Basophils % 0.3 Nucleated Red Blood Cells % 0.0 Neutrophils # 6.9 Lymphocytes # 1.3 Monocytes # 0.9 Eosinophils # 0.2 Basophils # 0.0 Nucleated Red Blood Cells # 0.0 Sodium Level 144 Potassium Level 3.4 L Chloride Level 95 L Carbon Dioxide Level 38 H Anion Gap 14 Blood Urea Nitrogen 9 Creatinine 0.72 Glucose Level 193 Calcium Level 8.5 Phosphorus Level 2.7 Magnesium Level 1.4 L Medications Medications Current Medications Acetaminophen (Tylenol Supp) 650 mg Q4H PRN [place] PAIN LEVEL 1-3 OR FEVER; Start 03/02/17 at 00:30 Miscellaneous Information 1 ea NOTE XX ; Start 03/02/17 at 00:30 Glucose (Glutose) 15 gm Q15M PRN PO DECREASED GLUCOSE; Start 03/02/17 at 00:30 Glucose (Glutose) 22.5 gm Q15M PRN PO DECREASED GLUCOSE; Start 03/02/17 at 00: 30 Dextrose (D50w Syringe) 25 ml Q15M PRN IV DECREASED GLUCOSE; Start 03/02/17 at 00:30 Dextrose (D50w Syringe) 50 ml Q15M PRN IV DECREASED GLUCOSE; Start 03/02/17 at 00:30 Glucagon (Glucagen) 1 mg Q15M PRN IM DECREASED GLUCOSE; Start 03/02/17 at 00:30 Glucose (Glutose) 15 gm Q15M PRN BUCCAL DECREASED GLUCOSE; Start 03/02/17 at 00 :30 Pantoprazole (Protonix Iv) 40 mg BID@06,18 IV Last administered on 03/12/17 06 :14; Admin Dose 40 MG; Start 03/04/17 at 06:00 Insulin Aspart NOVOLOG *MILD* ALGORI... Q4 SC Last administered on 03/12/17 05 :42; Admin Dose 2 UNIT; Start 03/06/17 at 05:00 Norepinephrine/ Dextrose (Levophed/D5W) 500 ml @ 1.87 mls/hr TITRATE IV ; Start 03/06/17 at 07:00 Aspirin (Halfprin) 81 mg DAILY PO ; Start 03/07/17 at 09:00 Atorvastatin Calcium (Lipitor) 40 mg QHS PO ; Start 03/06/17 at 21:00 Diclofenac Sodium (Voltaren) 75 mg DAILY PO ; Start 03/07/17 at 09:00 Donepezil HCl (Aricept) 5 mg QHS PO ; Start 03/06/17 at 21:00 Hydralazine HCl (Apresoline) 10 mg Q6H PRN IV ELEVATED BLOOD PRESSURE Last administered on 03/11/17 06:54; Admin Dose 10 MG; Start 03/07/17 at 09:30 Aspirin (Aspirin) 300 mg DAILY [place] Last administered on 03/11/17 13:29; Admin Dose 300 MG; Start 03/09/17 at 09:00 Metoprolol Tartrate 25 mg 25 mg BID PO ; Start 03/09/17 at 09:00 Diltiazem HCl (Cardizem-D5W 125 Mg/125 ml Drip) 125 ml @ 5 mls/hr TITRATE IV Last administered on 03/11/17 22:38; Admin Dose 10 MLS/HR; Start 03/11/17 at 22 :30 Morphine Sulfate 3 mg 3 mg Q4H PRN IV PAIN LEVEL 6-10 Last administered on 03/12 04:08; Admin Dose 3 MG; Start 03/12/17 at 00:00 Potassium Chloride 250 ml @ 62.5 mls/hr ONCE ONCE IVPB Last administered on 06:55; Admin Dose 62.5 MLS/HR; Start 03/12/17 at 07:00; Stop 03/12/17 at 10:59 Magnesium Sulfate/ Dextrose 100 ml @ 100 mls/hr ONCE ONCE IVPB ; Start at 09:00; Stop 03/12/17 at 09:59; Status UNV Amiodarone HCl 100 ml @ 600 mls/hr ONCE ONCE IV ; Start 03/12/17 at 09:00; Stop 03/12/17 at 09:09; Status UNV Amiodarone HCl/ Dextrose (Cordarone Iv/ D5W) 500 ml @ 0 mls/hr Q0M IV ; Start at 09:00; Stop 03/13/17 at 08:59; Status UNV CARY WALTER Mar 12, 2017 09:00
--- NOTE | 2017-03-12 09:25 | CONS ---
Date/Time of Note Date/Time of Note DATE: 03/12/17 TIME: 09:23 Assessment/Plan Assessment/Plan Additional Assessment/Plan Assessment and recommendations; 1. Patient admitted for sepsis with significant clinical improvement. 2. Atrial fibrillation with rapid ventricular response. Currently on Cardizem drip at 15 mg/h. 3. Hypercapnic respiratory failure. Resume amiodarone drip. Continue current supportive care. Prognosis is guarded. Consultation Date/Type/Reason Admit Date/Time Mar 01, 2017 at 20:20 Initial Consult Date 03/08/17 Type of Consultation: Pulmonary/critical care Referring Provider: MICHELLE MORENO 24 HR Interval Summary Free Text/Dictation Patient condition remains tenuous at best. Still having paroxysmal atrial fibrillation with rapid ventricular response. Patient does report decreased shortness of breath though. General exam; elderly woman, awake alert currently in no distress. Exam/Review of Systems Vital Signs Vitals Vital Signs Date Time Temp Pulse Resp B/P Pulse Ox O2 Delivery O2 Flow Rate FiO2 03/12/17 08:00 Venti Mask 15.0 03/12/17 06:45 154 26 113/58 91 03/12/17 04:36 50 03/12/17 04:00 98.4 Intake and Output 03/11/17 03/11/17 03/12/17 15:00 23:00 07:00 Intake Total 440.3709 ml 76.64 ml 70 ml Output Total 1150 ml 1280 ml 280 ml Balance -709.6291 ml -1203.36 ml -210 ml Exam HEENT exam; supple neck, no JVD. No lymphadenopathy. Midline trachea. No thyromegaly. Patient is edentulous. Pupils are equal and reactive to light. Chest exam; diminished but clear breath sound. S1-S2 audible, irregular rhythm no murmurs. Abdomen exam; soft, no organomegaly. Nontender. Bowel sounds audible. Extremity exam; no peripheral edema. TOW FEEDER exam; no focal deficit. Results Result Diagram: 03/12/17 0430 03/12/17 0430 Results 24 hrs Laboratory Tests Test 03/11/17 13:12 03/11/17 17:38 03/11/17 20:21 03/12/17 00:09 Bedside Glucose 102 179 106 Blood Gas Specimen Source Blood arterial Arterial Blood Date Drawn 03/12/2017 12:10:39 AM Arterial Blood pH (Temp corrected) 7.392 Arterial Blood pCO2 (Temp correct) 65.5 H Arterial Blood pO2 (Temp corrected) 61.2 L Arterial Blood HCO3 38.9 H Arterial Blood Base Excess 11.7 H Arterial Blood Oxygen Saturation 92.0 L Pablo Test N/A Arterial Blood Gas Puncture Site Right Brachial Arterial Blood Carboxyhemoglobin 0.3 Arterial Blood Methemoglobin 0.3 Blood Gas A-a O2 Differential 221.6 H Oxyhemoglobin Percent 91.4 L Total Hemoglobin 11.6 L Blood Gas Temperature 37.0 Blood Gas Modality MASK - VENTI FiO2 50.0 Blood Gas Notified Whom UP Blood Gas Notified Time 03/12/2017 12:32:35 AM Test 03/12/17 01:17 03/12/17 04:30 03/12/17 05:36 Bedside Glucose 160 207 White Blood Count 9.3 Red Blood Count 3.22 L Hemoglobin 9.6 L Hematocrit 32.1 L Mean Corpuscular Volume 99.7 Mean Corpuscular Hemoglobin 29.8 Mean Corpuscular Hemoglobin Concent 29.9 L Red Cell Distribution Width 14.1 Platelet Count 350 Mean Platelet Volume 10.4 Neutrophils % 73.9 Lymphocytes % 14.2 L Monocytes % 9.1 Eosinophils % 1.9 Basophils % 0.3 Nucleated Red Blood Cells % 0.0 Neutrophils # 6.9 Lymphocytes # 1.3 Monocytes # 0.9 Eosinophils # 0.2 Basophils # 0.0 Nucleated Red Blood Cells # 0.0 Sodium Level 144 Potassium Level 3.4 L Chloride Level 95 L Carbon Dioxide Level 38 H Anion Gap 14 Blood Urea Nitrogen 9 Creatinine 0.72 Glucose Level 193 Calcium Level 8.5 Phosphorus Level 2.7 Magnesium Level 1.4 L Medications Medications Current Medications Acetaminophen (Tylenol Supp) 650 mg Q4H PRN [place] PAIN LEVEL 1-3 OR FEVER; Start 03/02/17 at 00:30 Miscellaneous Information 1 ea NOTE XX ; Start 03/02/17 at 00:30 Glucose (Glutose) 15 gm Q15M PRN PO DECREASED GLUCOSE; Start 03/02/17 at 00:30 Glucose (Glutose) 22.5 gm Q15M PRN PO DECREASED GLUCOSE; Start 03/02/17 at 00: 30 Dextrose (D50w Syringe) 25 ml Q15M PRN IV DECREASED GLUCOSE; Start 03/02/17 at 00:30 Dextrose (D50w Syringe) 50 ml Q15M PRN IV DECREASED GLUCOSE; Start 03/02/17 at 00:30 Glucagon (Glucagen) 1 mg Q15M PRN IM DECREASED GLUCOSE; Start 03/02/17 at 00:30 Glucose (Glutose) 15 gm Q15M PRN BUCCAL DECREASED GLUCOSE; Start 03/02/17 at 00 :30 Pantoprazole (Protonix Iv) 40 mg BID@06,18 IV Last administered on 03/12/17 06 :14; Admin Dose 40 MG; Start 03/04/17 at 06:00 Insulin Aspart NOVOLOG *MILD* ALGORI... Q4 SC Last administered on 03/12/17 05 :42; Admin Dose 2 UNIT; Start 03/06/17 at 05:00 Norepinephrine/ Dextrose (Levophed/D5W) 500 ml @ 1.87 mls/hr TITRATE IV ; Start 03/06/17 at 07:00 Aspirin (Halfprin) 81 mg DAILY PO ; Start 03/07/17 at 09:00 Atorvastatin Calcium (Lipitor) 40 mg QHS PO ; Start 03/06/17 at 21:00 Diclofenac Sodium (Voltaren) 75 mg DAILY PO ; Start 03/07/17 at 09:00 Donepezil HCl (Aricept) 5 mg QHS PO ; Start 03/06/17 at 21:00 Hydralazine HCl (Apresoline) 10 mg Q6H PRN IV ELEVATED BLOOD PRESSURE Last administered on 03/11/17 06:54; Admin Dose 10 MG; Start 03/07/17 at 09:30 Aspirin (Aspirin) 300 mg DAILY [place] Last administered on 03/11/17 13:29; Admin Dose 300 MG; Start 03/09/17 at 09:00 Metoprolol Tartrate 25 mg 25 mg BID PO ; Start 03/09/17 at 09:00 Diltiazem HCl (Cardizem-D5W 125 Mg/125 ml Drip) 125 ml @ 5 mls/hr TITRATE IV Last administered on 03/11/17 22:38; Admin Dose 10 MLS/HR; Start 03/11/17 at 22 :30 Morphine Sulfate 3 mg 3 mg Q4H PRN IV PAIN LEVEL 6-10 Last administered on 03/12 04:08; Admin Dose 3 MG; Start 03/12/17 at 00:00 Potassium Chloride 250 ml @ 62.5 mls/hr ONCE ONCE IVPB Last administered on t 06:55; Admin Dose 62.5 MLS/HR; Start 03/12/17 at 07:00; Stop 03/12/17 at 10:59 Magnesium Sulfate/ Dextrose 100 ml @ 100 mls/hr ONCE ONCE IVPB ; Start at 09:00; Stop 03/12/17 at 09:59 Amiodarone HCl/ Dextrose (Cordarone Iv/ D5W) 500 ml @ 0 mls/hr Q0M IV ; Start at 09:00; Stop 03/13/17 at 08:59 ALFREDO BRUMFIELD Mar 12, 2017 09:25
[2017-03-12] MEDS: DILTIAZEM-D5W 125MG/125ML DRIP 125 ML IV SCH (09:34)
--- NOTE | 2017-03-12 11:46 | CONS ---
Date/Time of Note Date/Time of Note DATE: 03/12/17 TIME: 11:45 Assessment/Plan Assessment/Plan Chief Complaint/Hosp Course Patient is restless, on Ventimask with persistent rapid A. fib, on amiodarone and Cardizem drips. Temperature 98.5 heart rate 140 respirations 22 blood pressure 140 44/124 saturation 90% on Ventimask WBC 9.3 H&H 9.6 and 32.1 platelets 350 neutrophils 73.9 BN 9 creatinine 0.72 Indwelling's Pierce left subclavian triple-lumen catheter Physical examination: Chronically ill-appearing elderly woman who is restless, in no distress. Head atraumatic normocephalic sclera nonicteric bugle mucosa dry. Neck is supple, trachea midline. Chest rise symmetrical breath sounds with scattered rhonchi. S1-S2. Abdomen soft bowel tones present. Extremities with trace edema. Assessment: 1. Status post septic shock 2. S/p pneumonia possibly aspiration 3. Acute respiratory failure, fluid overload 4. Diabetes 5. Non-ST elevation [place] 6. Rapid atrial fibrillation, on amiodarone and Cardizem drips Plan: Clinically unchanged, continue present care, anti-aspiration measures, follow cardiology/pulmonary recommendations. Will reculture as needed Discussed with RN Problems: Consultation Date/Type/Reason Admit Date/Time Mar 01, 2017 at 20:20 Initial Consult Date 03/02/17 Type of Consultation: ID Referring Provider: MICHELLE MORENO Exam/Review of Systems Vital Signs Vitals Vital Signs Date Time Temp Pulse Resp B/P Pulse Ox O2 Delivery O2 Flow Rate FiO2 03/12/17 11:00 144 23 96/56 85 Venturi Mask 03/12/17 08:00 15.0 03/12/17 08:00 98.5 03/12/17 04:36 50 Intake and Output 03/11/17 03/11/17 03/12/17 15:00 23:00 07:00 Intake Total 440.3709 ml 76.64 ml 70 ml Output Total 1150 ml 1280 ml 280 ml Balance -709.6291 ml -1203.36 ml -210 ml Results Result Diagram: 03/12/17 0430 03/12/17 0430 Results 24 hrs Laboratory Tests Test 03/11/17 13:12 03/11/17 17:38 03/11/17 20:21 03/12/17 00:09 Bedside Glucose 102 179 106 Blood Gas Specimen Source Blood arterial Arterial Blood Date Drawn 03/12/2017 12:10:39 AM Arterial Blood pH (Temp corrected) 7.392 Arterial Blood pCO2 (Temp correct) 65.5 H Arterial Blood pO2 (Temp corrected) 61.2 L Arterial Blood HCO3 38.9 H Arterial Blood Base Excess 11.7 H Arterial Blood Oxygen Saturation 92.0 L Pablo Test N/A Arterial Blood Gas Puncture Site Right Brachial Arterial Blood Carboxyhemoglobin 0.3 Arterial Blood Methemoglobin 0.3 Blood Gas A-a O2 Differential 221.6 H Oxyhemoglobin Percent 91.4 L Total Hemoglobin 11.6 L Blood Gas Temperature 37.0 Blood Gas Modality MASK - VENTI FiO2 50.0 Blood Gas Notified Whom UP Blood Gas Notified Time 03/12/2017 12:32:35 AM Test 03/12/17 01:17 03/12/17 04:30 03/12/17 05:36 03/12/17 09:25 Bedside Glucose 160 207 179 White Blood Count 9.3 Red Blood Count 3.22 L Hemoglobin 9.6 L Hematocrit 32.1 L Mean Corpuscular Volume 99.7 Mean Corpuscular Hemoglobin 29.8 Mean Corpuscular Hemoglobin Concent 29.9 L Red Cell Distribution Width 14.1 Platelet Count 350 Mean Platelet Volume 10.4 Neutrophils % 73.9 Lymphocytes % 14.2 L Monocytes % 9.1 Eosinophils % 1.9 Basophils % 0.3 Nucleated Red Blood Cells % 0.0 Neutrophils # 6.9 Lymphocytes # 1.3 Monocytes # 0.9 Eosinophils # 0.2 Basophils # 0.0 Nucleated Red Blood Cells # 0.0 Sodium Level 144 Potassium Level 3.4 L Chloride Level 95 L Carbon Dioxide Level 38 H Anion Gap 14 Blood Urea Nitrogen 9 Creatinine 0.72 Glucose Level 193 Calcium Level 8.5 Phosphorus Level 2.7 Magnesium Level 1.4 L Medications Medications Current Medications Acetaminophen (Tylenol Supp) 650 mg Q4H PRN [place] PAIN LEVEL 1-3 OR FEVER; Start 03/02/17 at 00:30 Miscellaneous Information 1 ea NOTE XX ; Start 03/02/17 at 00:30 Glucose (Glutose) 15 gm Q15M PRN PO DECREASED GLUCOSE; Start 03/02/17 at 00:30 Glucose (Glutose) 22.5 gm Q15M PRN PO DECREASED GLUCOSE; Start 03/02/17 at 00: 30 Dextrose (D50w Syringe) 25 ml Q15M PRN IV DECREASED GLUCOSE; Start 03/02/17 at 00:30 Dextrose (D50w Syringe) 50 ml Q15M PRN IV DECREASED GLUCOSE; Start 03/02/17 at 00:30 Glucagon (Glucagen) 1 mg Q15M PRN IM DECREASED GLUCOSE; Start 03/02/17 at 00:30 Glucose (Glutose) 15 gm Q15M PRN BUCCAL DECREASED GLUCOSE; Start 03/02/17 at 00 :30 Pantoprazole (Protonix Iv) 40 mg BID@06,18 IV Last administered on 03/12/17 06 :14; Admin Dose 40 MG; Start 03/04/17 at 06:00 Insulin Aspart NOVOLOG *MILD* ALGORI... Q4 SC Last administered on 03/12/17 09 :28; Admin Dose 1 UNIT; Start 03/06/17 at 05:00 Norepinephrine/ Dextrose (Levophed/D5W) 500 ml @ 1.87 mls/hr TITRATE IV ; Start 03/06/17 at 07:00 Aspirin (Halfprin) 81 mg DAILY PO ; Start 03/07/17 at 09:00 Atorvastatin Calcium (Lipitor) 40 mg QHS PO ; Start 03/06/17 at 21:00 Diclofenac Sodium (Voltaren) 75 mg DAILY PO ; Start 03/07/17 at 09:00 Donepezil HCl (Aricept) 5 mg QHS PO ; Start 03/06/17 at 21:00 Hydralazine HCl (Apresoline) 10 mg Q6H PRN IV ELEVATED BLOOD PRESSURE Last administered on 03/11/17 06:54; Admin Dose 10 MG; Start 03/07/17 at 09:30 Aspirin (Aspirin) 300 mg DAILY [place] Last administered on 03/11/17 13:29; Admin Dose 300 MG; Start 03/09/17 at 09:00 Metoprolol Tartrate 25 mg 25 mg BID PO ; Start 03/09/17 at 09:00 Diltiazem HCl (Cardizem-D5W 125 Mg/125 ml Drip) 125 ml @ 5 mls/hr TITRATE IV Last administered on 03/12/17 09:34; Admin Dose 15 MLS/HR; Start 03/11/17 at 22 :30 Morphine Sulfate 3 mg 3 mg Q4H PRN IV PAIN LEVEL 6-10 Last administered on 03/12 10:54; Admin Dose 3 MG; Start 03/12/17 at 00:00 Amiodarone HCl/ Dextrose (Cordarone Iv/ D5W) 500 ml @ 0 mls/hr Q0M IV Last administered on 03/12/17 10:21; Admin Dose 33.4 MLS/HR; Start 03/12/17 at 09:00 ; Stop 03/13/17 at 08:59 HAO CUTLER NP Mar 12, 2017 11:46
--- NOTE | 2017-03-12 11:49 | PN ---
Date/Time of Note Date/Time of Note DATE: 03/12/17 TIME: 11:45 Assessment/Plan VTE Prophylaxis VTE Prophylaxis Intervention: SCD's Lines/Catheters IV [facility] Central Line Central line still needed: Yes Urinary Cath still in place: Yes Reason Cath still needed: urinary retention Assessment/Plan Assessment/Plan Assessment * Coffee ground emesis EGD 03/04/2017 Erosive esophagitis Erosive gastritis, NG tube trauma Nodular gastritis. Biopsies obtained * Sepsis * Acute respiratory failure managed by pulmonary * Failed swallow evaluation Plan * may reinsert NGT for feeding if patient fails swallo evaluation * Continue present regimen * Monitor hemoglobin and hematocrit, transfuse as necessary. * Case discussed with Dr Cormier * Further orders will depend on clinical course Subjective 24 Hr Interval Summary Free Text/Dictation * course reviewed with RN * Patient seen and examined * no untoward events overnight * patient more awake * still on amiodarone drip Exam/Review of Systems Vital Signs Vitals Vital Signs Date Time Temp Pulse Resp B/P Pulse Ox O2 Delivery O2 Flow Rate FiO2 03/12/17 11:00 144 23 96/56 85 Venturi Mask 03/12/17 08:00 15.0 03/12/17 08:00 98.5 03/12/17 04:36 50 Intake and Output 03/11/17 03/11/17 03/12/17 15:00 23:00 07:00 Intake Total 440.3709 ml 76.64 ml 70 ml Output Total 1150 ml 1280 ml 280 ml Balance -709.6291 ml -1203.36 ml -210 ml Exam Constitutional: frail Neck: non-tender, supple Respiratory: diminished breath sounds, normal air movement Cardiovascular: irregular rhythm, nl pulses Gastrointestinal: soft Musculoskeletal: nl extremities to inspection, nl gait and stance Extremities: normal pulses Neurological: nl speech, nl strength Skin: rash or lesions, No nl turgor Lymph: nl lymph nodes Results Result Diagram: 03/12/17 0430 03/12/17 0430 Results 24 hrs Laboratory Tests Test 03/11/17 13:12 03/11/17 17:38 03/11/17 20:21 03/12/17 00:09 Bedside Glucose 102 179 106 Blood Gas Specimen Source Blood arterial Arterial Blood Date Drawn 03/12/2017 12:10:39 AM Arterial Blood pH (Temp corrected) 7.392 Arterial Blood pCO2 (Temp correct) 65.5 H Arterial Blood pO2 (Temp corrected) 61.2 L Arterial Blood HCO3 38.9 H Arterial Blood Base Excess 11.7 H Arterial Blood Oxygen Saturation 92.0 L Pablo Test N/A Arterial Blood Gas Puncture Site Right Brachial Arterial Blood Carboxyhemoglobin 0.3 Arterial Blood Methemoglobin 0.3 Blood Gas A-a O2 Differential 221.6 H Oxyhemoglobin Percent 91.4 L Total Hemoglobin 11.6 L Blood Gas Temperature 37.0 Blood Gas Modality MASK - VENTI FiO2 50.0 Blood Gas Notified Whom UP Blood Gas Notified Time 03/12/2017 12:32:35 AM Test 03/12/17 01:17 03/12/17 04:30 03/12/17 05:36 03/12/17 09:25 Bedside Glucose 160 207 179 White Blood Count 9.3 Red Blood Count 3.22 L Hemoglobin 9.6 L Hematocrit 32.1 L Mean Corpuscular Volume 99.7 Mean Corpuscular Hemoglobin 29.8 Mean Corpuscular Hemoglobin Concent 29.9 L Red Cell Distribution Width 14.1 Platelet Count 350 Mean Platelet Volume 10.4 Neutrophils % 73.9 Lymphocytes % 14.2 L Monocytes % 9.1 Eosinophils % 1.9 Basophils % 0.3 Nucleated Red Blood Cells % 0.0 Neutrophils # 6.9 Lymphocytes # 1.3 Monocytes # 0.9 Eosinophils # 0.2 Basophils # 0.0 Nucleated Red Blood Cells # 0.0 Sodium Level 144 Potassium Level 3.4 L Chloride Level 95 L Carbon Dioxide Level 38 H Anion Gap 14 Blood Urea Nitrogen 9 Creatinine 0.72 Glucose Level 193 Calcium Level 8.5 Phosphorus Level 2.7 Magnesium Level 1.4 L Medications Medications Current Medications Acetaminophen (Tylenol Supp) 650 mg Q4H PRN [place] PAIN LEVEL 1-3 OR FEVER; Start 03/02/17 at 00:30 Miscellaneous Information 1 ea NOTE XX ; Start 03/02/17 at 00:30 Glucose (Glutose) 15 gm Q15M PRN PO DECREASED GLUCOSE; Start 03/02/17 at 00:30 Glucose (Glutose) 22.5 gm Q15M PRN PO DECREASED GLUCOSE; Start 03/02/17 at 00: 30 Dextrose (D50w Syringe) 25 ml Q15M PRN IV DECREASED GLUCOSE; Start 03/02/17 at 00:30 Dextrose (D50w Syringe) 50 ml Q15M PRN IV DECREASED GLUCOSE; Start 03/02/17 at 00:30 Glucagon (Glucagen) 1 mg Q15M PRN IM DECREASED GLUCOSE; Start 03/02/17 at 00:30 Glucose (Glutose) 15 gm Q15M PRN BUCCAL DECREASED GLUCOSE; Start 03/02/17 at 00 :30 Pantoprazole (Protonix Iv) 40 mg BID@06,18 IV Last administered on 03/12/17 06 :14; Admin Dose 40 MG; Start 03/04/17 at 06:00 Insulin Aspart NOVOLOG *MILD* ALGORI... Q4 SC Last administered on 03/12/17 09 :28; Admin Dose 1 UNIT; Start 03/06/17 at 05:00 Norepinephrine/ Dextrose (Levophed/D5W) 500 ml @ 1.87 mls/hr TITRATE IV ; Start 03/06/17 at 07:00 Aspirin (Halfprin) 81 mg DAILY PO ; Start 03/07/17 at 09:00 Atorvastatin Calcium (Lipitor) 40 mg QHS PO ; Start 03/06/17 at 21:00 Diclofenac Sodium (Voltaren) 75 mg DAILY PO ; Start 03/07/17 at 09:00 Donepezil HCl (Aricept) 5 mg QHS PO ; Start 03/06/17 at 21:00 Hydralazine HCl (Apresoline) 10 mg Q6H PRN IV ELEVATED BLOOD PRESSURE Last administered on 03/11/17 06:54; Admin Dose 10 MG; Start 03/07/17 at 09:30 Aspirin (Aspirin) 300 mg DAILY [place] Last administered on 03/11/17 13:29; Admin Dose 300 MG; Start 03/09/17 at 09:00 Metoprolol Tartrate 25 mg 25 mg BID PO ; Start 03/09/17 at 09:00 Diltiazem HCl (Cardizem-D5W 125 Mg/125 ml Drip) 125 ml @ 5 mls/hr TITRATE IV Last administered on 03/12/17 09:34; Admin Dose 15 MLS/HR; Start 03/11/17 at 22 :30 Morphine Sulfate 3 mg 3 mg Q4H PRN IV PAIN LEVEL 6-10 Last administered on 03/12 10:54; Admin Dose 3 MG; Start 03/12/17 at 00:00 Amiodarone HCl/ Dextrose (Cordarone Iv/ D5W) 500 ml @ 0 mls/hr Q0M IV Last administered on 03/12/17t 10:21; Admin Dose 33.4 MLS/HR; Start 03/12/17 at 09:00 ; Stop 03/13/17 at 08:59 NATALIIA YAN NP Mar 12, 2017 11:48
--- NOTE | 2017-03-12 12:57 | PN ---
Date/Time of Note Date/Time of Note DATE: 03/12/17 TIME: 12:54 Assessment/Plan VTE Prophylaxis VTE Prophylaxis Intervention: SCD's Lines/Catheters IV Catheter Type (from Nrs): Central Line Central line still needed: Yes Urinary Cath still in place: Yes Reason Cath still needed: urinary retention Assessment/Plan Chief Complaint/Hosp Course Assessment/Plan: 86 yo F with dementia admitted from facility for acute hypoxic respiratory failure and sepsis: likely 2/2 aspiration pneumonia 1. acute hypoxic respiratory failure: 2/2 aspiration pna, now extubated 3 days ago. Had been requiring venturi mask and BiPAP at night, now on N.C. today. f/u pulmonology rec's, abx, duoneb's prn 2. Severe sepsis: from aspiration pna, ID following. Likely secondary to respiratory infection. Off pressors Continue IV vancomycin per ID rec's 3. Tachycardia: afib with RVR vs sinus tach (fluctuates) -for now, monitor, f/u CV rec's - continue cardizem and amiodarone IV now, f/u CV rec's 4. suspected fungal esophagitis: Continue IV fluconazole. (defer to ID) 5. diabetes mellitus: Continue insulin sliding scale. resume basal insulin once pt taking PO again 6. History of essential hypertension: ARB on hold 7. Questionable GI bleed: sp EGD 7.15 , +gastritis - f/u GI rec's, continue PPI IV - avoid NG tube for now unless absolutely necessary - ST eval today again to reassess. 8. DVT and GI prophylaxis: SCDs, Protonix 9. thyroid - 7.13 labs notable for hyperthyroid (TSH low, t4 high)-->consider post discharge fu with PCP 10. hypernatremia - resolved now, monitor 11. low electrolytes: Replete as needed again today. Code status: unfortunately pt with dementia and no advanced directive or family. Given aspiration most likely 2/2 dementia for which there is no cure, suspect aspiration will occur again. Appreciate palliative team consult, they will try to contact family members [place]. critical care time: 45 minutes Problems: Subjective 24 Hr Interval Summary Free Text/Dictation Pt now on amiodarone and cardizem IV drips for continued afib/tachy. Exam/Review of Systems Vital Signs Vitals Vital Signs Date Time Temp Pulse Resp B/P Pulse Ox O2 Delivery O2 Flow Rate FiO2 03/12/17 12:00 111 03/12/17 11:00 23 96/56 85 Venturi Mask 03/12/17 08:00 15.0 03/12/17 08:00 98.5 03/12/17 04:36 50 Intake and Output 03/11/17 03/11/17 03/12/17 15:00 23:00 07:00 Intake Total 440.3709 ml 76.64 ml 70 ml Output Total 1150 ml 1280 ml 280 ml Balance -709.6291 ml -1203.36 ml -210 ml Exam GENERAL: Elderly lady lying in bed, on simple mask HEENT: Pupils equal, round, and reactive to light. CARDIAC: S1, S2, 1/6 systolic ejection murmur CHEST: some diminished air entry bilaterally. ABDOMEN: Mildly distended. Bowel sounds present no guarding or rebound EXTREMITIES: No cyanosis, clubbing edema +1 NEUROLOGIC: Generalized weakness+ Results Result Diagram: 03/12/17 0430 03/12/17 0430 Results 24 hrs Laboratory Tests Test 03/11/17 13:12 03/11/17 17:38 03/11/17 20:21 03/12/17 00:09 Bedside Glucose 102 179 106 Blood Gas Specimen Source Blood arterial Arterial Blood Date Drawn 03/12/2017 12:10:39 AM Arterial Blood pH (Temp corrected) 7.392 Arterial Blood pCO2 (Temp correct) 65.5 H Arterial Blood pO2 (Temp corrected) 61.2 L Arterial Blood HCO3 38.9 H Arterial Blood Base Excess 11.7 H Arterial Blood Oxygen Saturation 92.0 L Pablo Test N/A Arterial Blood Gas Puncture Site Right Brachial Arterial Blood Carboxyhemoglobin 0.3 Arterial Blood Methemoglobin 0.3 Blood Gas A-a O2 Differential 221.6 H Oxyhemoglobin Percent 91.4 L Total Hemoglobin 11.6 L Blood Gas Temperature 37.0 Blood Gas Modality MASK - VENTI FiO2 50.0 Blood Gas Notified Whom UP Blood Gas Notified Time 03/12/2017 12:32:35 AM Test 03/12/17 01:17 03/12/17 04:30 03/12/17 05:36 03/12/17 09:25 Bedside Glucose 160 207 179 White Blood Count 9.3 Red Blood Count 3.22 L Hemoglobin 9.6 L Hematocrit 32.1 L Mean Corpuscular Volume 99.7 Mean Corpuscular Hemoglobin 29.8 Mean Corpuscular Hemoglobin Concent 29.9 L Red Cell Distribution Width 14.1 Platelet Count 350 Mean Platelet Volume 10.4 Neutrophils % 73.9 Lymphocytes % 14.2 L Monocytes % 9.1 Eosinophils % 1.9 Basophils % 0.3 Nucleated Red Blood Cells % 0.0 Neutrophils # 6.9 Lymphocytes # 1.3 Monocytes # 0.9 Eosinophils # 0.2 Basophils # 0.0 Nucleated Red Blood Cells # 0.0 Sodium Level 144 Potassium Level 3.4 L Chloride Level 95 L Carbon Dioxide Level 38 H Anion Gap 14 Blood Urea Nitrogen 9 Creatinine 0.72 Glucose Level 193 Calcium Level 8.5 Phosphorus Level 2.7 Magnesium Level 1.4 L Medications Medications Current Medications Acetaminophen (Tylenol Supp) 650 mg Q4H PRN [place] PAIN LEVEL 1-3 OR FEVER; Start 03/02/17 at 00:30 Miscellaneous Information 1 ea NOTE XX ; Start 03/02/17 at 00:30 Glucose (Glutose) 15 gm Q15M PRN PO DECREASED GLUCOSE; Start 03/02/17 at 00:30 Glucose (Glutose) 22.5 gm Q15M PRN PO DECREASED GLUCOSE; Start 03/02/17 at 00: 30 Dextrose (D50w Syringe) 25 ml Q15M PRN IV DECREASED GLUCOSE; Start 03/02/17 at 00:30 Dextrose (D50w Syringe) 50 ml Q15M PRN IV DECREASED GLUCOSE; Start 03/02/17 at 00:30 Glucagon (Glucagen) 1 mg Q15M PRN IM DECREASED GLUCOSE; Start 03/02/17 at 00:30 Glucose (Glutose) 15 gm Q15M PRN BUCCAL DECREASED GLUCOSE; Start 03/02/17 at 00 :30 Pantoprazole (Protonix Iv) 40 mg BID@06,18 IV Last administered on 03/12/17 06 :14; Admin Dose 40 MG; Start 03/04/17 at 06:00 Insulin Aspart NOVOLOG *MILD* ALGORI... Q4 SC Last administered on 03/12/17 09 :28; Admin Dose 1 UNIT; Start 03/06/17 at 05:00 Norepinephrine/ Dextrose (Levophed/D5W) 500 ml @ 1.87 mls/hr TITRATE IV ; Start 03/06/17 at 07:00 Aspirin (Halfprin) 81 mg DAILY PO ; Start 03/07/17 at 09:00 Atorvastatin Calcium (Lipitor) 40 mg QHS PO ; Start 03/06/17 at 21:00 Diclofenac Sodium (Voltaren) 75 mg DAILY PO ; Start 03/07/17 at 09:00 Donepezil HCl (Aricept) 5 mg QHS PO ; Start 03/06/17 at 21:00 Hydralazine HCl (Apresoline) 10 mg Q6H PRN IV ELEVATED BLOOD PRESSURE Last administered on 03/11/17 06:54; Admin Dose 10 MG; Start 03/07/17 at 09:30 Aspirin (Aspirin) 300 mg DAILY [place] Last administered on 03/11/17 13:29; Admin Dose 300 MG; Start 03/09/17 at 09:00 Metoprolol Tartrate 25 mg 25 mg BID PO ; Start 03/09/17 at 09:00 Diltiazem HCl (Cardizem-D5W 125 Mg/125 ml Drip) 125 ml @ 5 mls/hr TITRATE IV Last administered on 03/12/17 09:34; Admin Dose 15 MLS/HR; Start 03/11/17 at 22 :30 Morphine Sulfate 3 mg 3 mg Q4H PRN IV PAIN LEVEL 6-10 Last administered on 03/12 10:54; Admin Dose 3 MG; Start 03/12/17 at 00:00 Amiodarone HCl/ Dextrose (Cordarone Iv/ D5W) 500 ml @ 0 mls/hr Q0M IV Last administered on 03/12/17 10:21; Admin Dose 33.4 MLS/HR; Start 03/12/17 at 09:00 ; Stop 03/13/17 at 08:59 FERNANDO DIMAS Mar 12, 2017 12:57
--- NOTE | 2017-03-12 15:35 | PN ---
Date/Time of Note Date/Time of Note DATE: 03/12/17 TIME: 15:33 Assessment/Plan VTE Prophylaxis VTE Prophylaxis Intervention: other Lines/Catheters IV Catheter Type (from Nrs): Central Line Central line still needed: Yes Urinary Cath still in place: Yes Reason Cath still needed: other (indicate) Assessment/Plan Chief Complaint/Hosp Course 1. P afib/ flutter with RVR: 2. acute hypoxemic respiratory failure: extubated now but still very hypoxemic 3. + troponin: c.w NSTEMI due to demand ischemia due to above 4. DM and severely elevated glucose: controlled with insulin 5. dyslipidemia 6. pneumonia/ sepsis 7. s/p shock : appear to be related to sepsis: currently off of levophed 8. hx memory impairment 9. anemia and GI bleed: stable now 10. hypo K. RESUME ASA off of plavix due to above back on amiodarone and cardizem drip unable to take any po meds now. will start po betablocker once able to take po meds DM Control with insulin echo shows normal EF replace lytes including K and Mg prn. Problems: Subjective 24 Hr Interval Summary Free Text/Dictation CARDIOLOGY FOLLOW UP NOTE/ critical care note d/w staff in ICU and rhythm was reviewed. pt has converted to AFLUTTER/ FIB WITH RVR overnight. HR is better controlled now with amiodarone drip and cardizem drip. . . pt is EXTUBATED 03/08 no more bleeding is reported. she denies any chest pain to me but confused. pt has been less hypoxemic she is still NPO OBJECTIVE: General: confused and combative HEENT: NC/AT. pupils are constricted. round. NECK: NO JVD. no stridor. CV: irregularly irregular. systolic murmur; no gallop or rubs. PULM: + diffuse rhonchi. GI: SOFT, NT, ND, no rebound or guarding Extremity: trace B/L LE edema. no clubbing. neuro: awake and alert Psych: calm now. rectal: deferred : normal ECHO personally reviewed: 1. Normal left ventricular systolic function. Normal left ventricular cavity size. Mild concentric left ventricular hypertrophy. Ejection fraction is visually estimated at 55 %. Tissue Doppler/Mitral Doppler indices are consistent with impaired relaxation (Stage I diastolic dysfunction). 2. The left atrium is normal in size. 3. Mitral valve leaflets appear mildly thickened. Mild mitral annular calcification. Trace mitral regurgitation. 4. No significant aortic stenosis or insufficiency. Aortic sclerosis without stenosis. 5. Normal appearance of the tricuspid valve. Estimated peak PA systolic pressure 26 mmHg. There is mild tricuspid regurgitation. Exam/Review of Systems Vital Signs Vitals Vital Signs Date Time Temp Pulse Resp B/P Pulse Ox O2 Delivery O2 Flow Rate FiO2 03/12/17 12:00 Nasal Cannula 4.0 03/12/17 12:00 111 03/12/17 11:00 23 96/56 85 03/12/17 08:00 98.5 03/12/17 04:36 50 Intake and Output 03/11/17 03/11/17 03/12/17 15:00 23:00 07:00 Intake Total 440.3709 ml 76.64 ml 70 ml Output Total 1150 ml 1280 ml 280 ml Balance -709.6291 ml -1203.36 ml -210 ml Results Result Diagram: 03/12/17 0430 03/12/17 0430 Results 24 hrs Laboratory Tests Test 03/11/17 17:38 03/11/17 20:21 03/12/17 00:09 03/12/17 01:17 Bedside Glucose 179 106 160 Blood Gas Specimen Source Blood arterial Arterial Blood Date Drawn 03/12/2017 12:10:39 AM Arterial Blood pH (Temp corrected) 7.392 Arterial Blood pCO2 (Temp correct) 65.5 H Arterial Blood pO2 (Temp corrected) 61.2 L Arterial Blood HCO3 38.9 H Arterial Blood Base Excess 11.7 H Arterial Blood Oxygen Saturation 92.0 L Pablo Test N/A Arterial Blood Gas Puncture Site Right Brachial Arterial Blood Carboxyhemoglobin 0.3 Arterial Blood Methemoglobin 0.3 Blood Gas A-a O2 Differential 221.6 H Oxyhemoglobin Percent 91.4 L Total Hemoglobin 11.6 L Blood Gas Temperature 37.0 Blood Gas Modality MASK - VENTI FiO2 50.0 Blood Gas Notified Whom UP Blood Gas Notified Time 03/12/2017 12:32:35 AM Test 03/12/17 04:30 03/12/17 05:36 03/12/17 09:25 03/12/17 13:24 White Blood Count 9.3 Red Blood Count 3.22 L Hemoglobin 9.6 L Hematocrit 32.1 L Mean Corpuscular Volume 99.7 Mean Corpuscular Hemoglobin 29.8 Mean Corpuscular Hemoglobin Concent 29.9 L Red Cell Distribution Width 14.1 Platelet Count 350 Mean Platelet Volume 10.4 Neutrophils % 73.9 Lymphocytes % 14.2 L Monocytes % 9.1 Eosinophils % 1.9 Basophils % 0.3 Nucleated Red Blood Cells % 0.0 Neutrophils # 6.9 Lymphocytes # 1.3 Monocytes # 0.9 Eosinophils # 0.2 Basophils # 0.0 Nucleated Red Blood Cells # 0.0 Sodium Level 144 Potassium Level 3.4 L Chloride Level 95 L Carbon Dioxide Level 38 H Anion Gap 14 Blood Urea Nitrogen 9 Creatinine 0.72 Glucose Level 193 Calcium Level 8.5 Phosphorus Level 2.7 Magnesium Level 1.4 L Bedside Glucose 207 179 154 Medications Medications Current Medications Acetaminophen (Tylenol Supp) 650 mg Q4H PRN [place] PAIN LEVEL 1-3 OR FEVER; Start 03/02/17 at 00:30 Miscellaneous Information 1 ea NOTE XX ; Start 03/02/17 at 00:30 Glucose (Glutose) 15 gm Q15M PRN PO DECREASED GLUCOSE; Start 03/02/17 at 00:30 Glucose (Glutose) 22.5 gm Q15M PRN PO DECREASED GLUCOSE; Start 03/02/17 at 00: 30 Dextrose (D50w Syringe) 25 ml Q15M PRN IV DECREASED GLUCOSE; Start 03/02/17 at 00:30 Dextrose (D50w Syringe) 50 ml Q15M PRN IV DECREASED GLUCOSE; Start 03/02/17 at 00:30 Glucagon (Glucagen) 1 mg Q15M PRN IM DECREASED GLUCOSE; Start 03/02/17 at 00:30 Glucose (Glutose) 15 gm Q15M PRN BUCCAL DECREASED GLUCOSE; Start 03/02/17 at 00 :30 Pantoprazole (Protonix Iv) 40 mg BID@06,18 IV Last administered on 03/12/17 06 :14; Admin Dose 40 MG; Start 03/04/17 at 06:00 Insulin Aspart NOVOLOG *MILD* ALGORI... Q4 SC Last administered on 03/12/17 13 :26; Admin Dose 1 UNIT; Start 03/06/17 at 05:00 Norepinephrine/ Dextrose (Levophed/D5W) 500 ml @ 1.87 mls/hr TITRATE IV ; Start 03/06/17 at 07:00 Aspirin (Halfprin) 81 mg DAILY PO ; Start 03/07/17 at 09:00 Atorvastatin Calcium (Lipitor) 40 mg QHS PO ; Start 03/06/17 at 21:00 Diclofenac Sodium (Voltaren) 75 mg DAILY PO ; Start 03/07/17 at 09:00 Donepezil HCl (Aricept) 5 mg QHS PO ; Start 03/06/17 at 21:00 Hydralazine HCl (Apresoline) 10 mg Q6H PRN IV ELEVATED BLOOD PRESSURE Last administered on 03/11/17 06:54; Admin Dose 10 MG; Start 03/07/17 at 09:30 Aspirin (Aspirin) 300 mg DAILY [place] Last administered on 03/11/17 13:29; Admin Dose 300 MG; Start 03/09/17 at 09:00 Metoprolol Tartrate 25 mg 25 mg BID PO ; Start 03/09/17 at 09:00 Diltiazem HCl (Cardizem-D5W 125 Mg/125 ml Drip) 125 ml @ 5 mls/hr TITRATE IV Last administered on 03/12/17 09:34; Admin Dose 15 MLS/HR; Start 03/11/17 at 22 :30 Morphine Sulfate 3 mg 3 mg Q4H PRN IV PAIN LEVEL 6-10 Last administered on 03/12 14:49; Admin Dose 3 MG; Start 03/12/17 at 00:00 Amiodarone HCl/ Dextrose (Cordarone Iv/ D5W) 500 ml @ 0 mls/hr Q0M IV Last administered on 03/12/17 10:21; Admin Dose 33.4 MLS/HR; Start 03/12/17 at 09:00 ; Stop 03/13/17 at 08:59 TYREE MCKOY MD Mar 12, 2017 15:35
[2017-03-12] MEDS ORDERED: MAGNESIUM SULFATE 2 GM/50 ML 50 ML IVPB ONE (16:00)
[2017-03-12] MEDS ORDERED: MAGNESIUM SULFATE 3 GM in SOD CHLORIDE 0.9% 100 ML IV ONE (17:00)
--- NOTE | 2017-03-12 17:34 | RADRPT ---
PROCEDURE: XR Chest. CLINICAL INDICATION: Shortness of breath. TECHNIQUE: Single frontal view. COMPARISON: 03/11/2017. FINDINGS: The left subclavian vein catheter remains in satisfactory position. There is mild pulmonary edema, slightly worse than seen previously. The lungs are otherwise clear. The heart size is normal. There is no pleural effusion. There is no pneumothorax. IMPRESSION: 1. Left subclavian vein catheter in satisfactory position. 2. Mild pulmonary edema, slightly worse than seen previously. 3. Otherwise normal chest x-ray. RPTAT: QQ .Flako Olvera MD, MD Date Time Electronically viewed and signed by .Flako Olvera MD, on 03/12/2017 17:34 .R/
[2017-03-12] MEDS: ASPIRIN 300 MG SUPP PR SCH (19:23)
[2017-03-12] MEDS: ATORVASTATIN 40 MG TAB PO SCH (20:13)
[2017-03-12] MEDS: DONEPEZIL 5 MG TAB PO SCH (20:13)
[2017-03-13] VITALS (43 sets, daily range): BP systolic 102–153; BP diastolic 37–116; PULSE 77–153; RESP 11–28
[2017-03-13] MEDS: INSULIN ASPART [NOVOLOG] 3 ML PEN SC SCH ×6 (01:39→20:46)
[2017-03-13 05:39] LABS: BASOPHIL # 0.1 10^3/ul (0.0-0.1); BASOPHILS % 0.6 % (0.0-2.0); EOSINOPHILS # 0.2 10^3/ul (0.0-0.5); EOSINOPHILS % 2.8 % (0.0-7.0); HEMATOCRIT 31.9 % (37.0-47.0); HEMOGLOBIN 9.7 g/dl (12.0-16.0); LYMPHOCYTES # 1.2 10^3/ul (0.8-2.9); LYMPHOCYTES % 14.2 % (15.0-51.0); MEAN CORPUSCULAR HEMOGLOBIN 29.9 pg (29.0-33.0); MEAN CORPUSCULAR HGB CONC 30.4 g/dl (32.0-37.0); MEAN CORPUSCULAR VOLUME 98.5 fl (82.0-101.0); MEAN PLATELET VOLUME 10.5 fl (7.4-10.4); MONOCYTE # 0.8 10^3/ul (0.3-0.9); MONOCYTES % 9.6 % (0.0-11.0); NEUTROPHIL # 6.1 10^3/ul (1.6-7.5); PLATELET COUNT 366 10^3/UL (140-415); RED BLOOD COUNT 3.24 10^6/ul (4.20-5.40); RED CELL DISTRIBUTION WIDTH 14.3 % (11.5-14.5); WHITE BLOOD COUNT 8.5 10^3/ul (4.8-10.8)
[2017-03-13] MEDS: PANTOPRAZOLE 40 MG INJ IV SCH ×2 (05:43→17:16)
[2017-03-13] MEDS: FUROSEMIDE 40 MG INJ IV SCH ×2 (05:44→17:16)
[2017-03-13 06:12] LABS: ALBUMIN 3.3 g/dl (3.3-4.9); ALBUMIN/GLOBULIN RATIO 0.91; BILIRUBIN,INDIRECT 0.2 mg/dl (0-1.1); BILIRUBIN,TOTAL 0.2 mg/dl (0.2-1.3); CALCIUM 8.5 mg/dl (8.4-10.2); CREATININE 0.62 mg/dl (0.44-1.00); MAGNESIUM 2.2 mg/dl (1.7-2.5); POTASSIUM 3.4 mmol/L (3.5-5.1); TOTAL PROTEIN 6.9 g/dl (6.1-8.1)
[2017-03-13] MEDS: morphine 4 MG/ML VIAL IV PRN (07:42)
[2017-03-13] MEDS: ASPIRIN (EC) 81 MG TAB PO SCH (08:50)
[2017-03-13] MEDS: METOPROLOL 25 MG TAB PO SCH ×2 (08:50→20:00)
[2017-03-13] MEDS: DICLOFENAC (EC) 75 MG TAB PO SCH (08:50)
--- NOTE | 2017-03-13 09:19 | PN ---
Date/Time of Note Date/Time of Note DATE: 03/13/17 TIME: 09:16 Assessment/Plan VTE Prophylaxis VTE Prophylaxis Intervention: SCD's Lines/Catheters IV Catheter Type (from Nrsg): Central Line Central line still needed: Yes Urinary Cath still in place: Yes Reason Cath still needed: urinary retention Assessment/Plan Chief Complaint/Hosp Course Assessment/Plan: 86 yo F with dementia admitted from facility for acute hypoxic respiratory failure and sepsis: likely 2/2 aspiration pneumonia 1. acute hypoxic respiratory failure: 2/2 aspiration pna, now extubated 3 days ago. Had been on [place]. for O2 supplementation f/u pulmonology rec's, abx, duoneb's prn 2. Severe sepsis: from aspiration pna, ID following. Likely secondary to respiratory infection. Off pressors Continue IV vancomycin per ID rec's 3. Tachycardia: afib with RVR vs sinus tach (fluctuates) -for now, monitor, f/u CV rec's - continue amiodarone IV now, f/u CV rec's 4. suspected fungal esophagitis: Continue IV fluconazole. (defer to ID) 5. diabetes mellitus: Continue insulin sliding scale. resume basal insulin once pt taking PO again 6. History of essential hypertension: ARB on hold 7. Questionable GI bleed: sp EGD 7.15 , +gastritis - f/u GI rec's, continue PPI IV - avoid NG tube for now unless absolutely necessary - ST eval is still pending to reassess. 8. DVT and GI prophylaxis: SCDs, Protonix 9. thyroid - 7.13 labs notable for hyperthyroid (TSH low, t4 high)-->consider post discharge fu with PCP 10. hypernatremia - resolved now, monitor 11. low electrolytes: Replete as needed again today. Code status: unfortunately pt with dementia and no advanced directive or family. Given aspiration most likely 2/2 dementia for which there is no cure, suspect aspiration will occur again. Appreciate palliative team consult, they are trying to contact [place] members [place]. May need to schedule bioethics mtg in next few days as well if family cannot be contacted. critical care time: 45 minutes Problems: Subjective 24 Hr Interval Summary Free Text/Dictation Pt off cardizem IV since last night (still on amiodarone) but now tachy again this AM. Still waiting to be seen by ST team. Exam/Review of Systems Vital Signs Vitals Vital Signs Date Time Temp Pulse Resp B/P Pulse Ox O2 Delivery O2 Flow Rate FiO2 03/13/17 08:00 Nasal Cannula 4.0 03/13/17 06:30 127 24 108/71 93 03/13/17 04:00 98.4 03/12/17 08:05 50 Intake and Output 03/12/17 03/12/17 03/13/17 15:00 23:00 07:00 Intake Total 690.6 ml 232.853 ml 116.62 ml Output Total 1290 ml 1145 ml 300 ml Balance -599.4 ml -912.147 ml -183.38 ml Exam GENERAL: Elderly lady lying in bed, on NC HEENT: Pupils equal, round, and reactive to light. CARDIAC: S1, S2, 1/6 systolic ejection murmur CHEST: some diminished air entry bilaterally. ABDOMEN: Mildly distended. Bowel sounds present no guarding or rebound EXTREMITIES: No cyanosis, clubbing edema +1 NEUROLOGIC: Generalized weakness+ Results Result Diagram: 03/13/17 0405 03/13/17 0405 Results 24 hrs Laboratory Tests Test 03/12/17 09:25 03/12/17 13:24 03/12/17 17:28 03/12/17 21:31 Bedside Glucose 179 154 125 208 Test 03/13/17 01:32 03/13/17 04:05 03/13/17 05:29 Bedside Glucose 202 195 White Blood Count 8.5 Red Blood Count 3.24 L Hemoglobin 9.7 L Hematocrit 31.9 L Mean Corpuscular Volume 98.5 Mean Corpuscular Hemoglobin 29.9 Mean Corpuscular Hemoglobin Concent 30.4 L Red Cell Distribution Width 14.3 Platelet Count 366 Mean Platelet Volume 10.5 H Neutrophils % 72.0 Lymphocytes % 14.2 L Monocytes % 9.6 Eosinophils % 2.8 Basophils % 0.6 Nucleated Red Blood Cells % 0.0 Neutrophils # 6.1 Lymphocytes # 1.2 Monocytes # 0.8 Eosinophils # 0.2 Basophils # 0.1 Nucleated Red Blood Cells # 0.0 Sodium Level 144 Potassium Level 3.4 L Chloride Level 91 L Carbon Dioxide Level 40 H Anion Gap 16 Blood Urea Nitrogen 10 Creatinine 0.62 Glucose Level 190 Calcium Level 8.5 Magnesium Level 2.2 Total Bilirubin 0.2 Direct Bilirubin 0.00 Indirect Bilirubin 0.2 Aspartate Amino Transf (AST/SGOT) 21 Alanine Aminotransferase (ALT/SGPT) 33 Alkaline Phosphatase 100 Total Protein 6.9 Albumin 3.3 Globulin 3.60 H Albumin/Globulin Ratio 0.91 Digoxin Level 0.5 L Medications Medications Current Medications Acetaminophen (Tylenol Supp) 650 mg Q4H PRN IN PAIN LEVEL 1-3 OR FEVER; Start 03/02/17 at 00:30 Miscellaneous Information 1 ea NOTE XX ; Start 03/02/17 at 00:30 Glucose (Glutose) 15 gm Q15M PRN PO DECREASED GLUCOSE; Start 03/02/17 at 00:30 Glucose (Glutose) 22.5 gm Q15M PRN PO DECREASED GLUCOSE; Start 03/02/17 at 00: 30 Dextrose (D50w Syringe) 25 ml Q15M PRN IV DECREASED GLUCOSE; Start 03/02/17 at 00:30 Dextrose (D50w Syringe) 50 ml Q15M PRN IV DECREASED GLUCOSE; Start 03/02/17 at 00:30 Glucagon (Glucagen) 1 mg Q15M PRN IM DECREASED GLUCOSE; Start 03/02/17 at 00:30 Glucose (Glutose) 15 gm Q15M PRN BUCCAL DECREASED GLUCOSE; Start 03/02/17 at 00 :30 Pantoprazole (Protonix Iv) 40 mg BID@06,18 IV Last administered on 03/13/17 05 :43; Admin Dose 40 MG; Start 03/04/17 at 06:00 Insulin Aspart NOVOLOG *MILD* ALGORI... Q4 SC Last administered on 03/13/17 09 :09; Admin Dose 2 UNIT; Start 03/06/17 at 05:00 Norepinephrine/ Dextrose (Levophed/D5W) 500 ml @ 1.87 mls/hr TITRATE IV ; Start 03/06/17 at 07:00 Aspirin (Halfprin) 81 mg DAILY PO ; Start 03/07/17 at 09:00 Atorvastatin Calcium (Lipitor) 40 mg QHS PO ; Start 03/06/17 at 21:00 Diclofenac Sodium (Voltaren) 75 mg DAILY PO ; Start 03/07/17 at 09:00 Donepezil HCl (Aricept) 5 mg QHS PO ; Start 03/06/17 at 21:00 Hydralazine HCl (Apresoline) 10 mg Q6H PRN IV ELEVATED BLOOD PRESSURE Last administered on 03/11/17 06:54; Admin Dose 10 MG; Start 03/07/17 at 09:30 Aspirin (Aspirin) 300 mg DAILY IN Last administered on 03/12/17 19:23; Admin Dose 300 MG; Start 03/09/17 at 09:00 Metoprolol Tartrate 25 mg 25 mg BID PO ; Start 03/09/17 at 09:00 Diltiazem HCl (Cardizem-D5W 125 Mg/125 ml Drip) 125 ml @ 5 mls/hr TITRATE IV Last administered on 03/12/17 09:34; Admin Dose 15 MLS/HR; Start 03/11/17 at 22 :30 Morphine Sulfate (morphine) 3 mg Q4H PRN IV PAIN LEVEL 6-10 Last administered on 03/13/17 07:42; Admin Dose 3 MG; Start 03/12/17 at 00:00 FERNANDO DIMAS Mar 13, 2017 09:19
[2017-03-13] MEDS ORDERED: POTASSIUM CHLORIDE 250 ML IVPB ONE (09:30)
--- NOTE | 2017-03-13 10:40 | CONS ---
Date/Time of Note Date/Time of Note DATE: 03/13/17 TIME: 10:39 Assessment/Plan Assessment/Plan Additional Assessment/Plan Assessment and recommendations; 1. Patient admitted with UTI with significant clinical improvement. 2. Recurrent paroxysmal atrial fibrillation, currently on amiodarone drip since yesterday, rate is controlled now. 3. Mild dementia. Continue current treatment. Consultation Date/Type/Reason Admit Date/Time Mar 01, 2017 at 20:20 Initial Consult Date 03/08/17 Type of Consultation: Pulmonary/critical care Referring Provider: MICHELLE MORENO 24 HR Interval Summary Free Text/Dictation Patient condition is markedly improved in the last 24 hours. She is awake and alert able to talk. Next General exam; elderly woman, awake and alert, currently in no distress. Exam/Review of Systems Vital Signs Vitals Vital Signs Date Time Temp Pulse Resp B/P Pulse Ox O2 Delivery O2 Flow Rate FiO2 03/13/17 10:00 118 13 124/80 92 Nasal Cannula 4.0 03/13/17 08:00 98.1 03/12/17 08:05 50 Intake and Output 03/12/17 03/12/17 03/13/17 15:00 23:00 07:00 Intake Total 690.6 ml 232.853 ml 116.62 ml Output Total 1290 ml 1145 ml 300 ml Balance -599.4 ml -912.147 ml -183.38 ml Exam HEENT exam; supple neck, positive JVD. No lymphadenopathy. Midline trachea. No thyromegaly. Patient is edentulous. Has bilateral cataracts. Chest exam; diminished but clear breath sound. S1-S2 audible, no murmurs. Irregular rhythm. Abdomen exam; soft, no organomegaly. Nontender. Bowel sounds audible. Extremity exam; no peripheral edema. 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 Results Result Diagram: 03/13/17 0405 03/13/17 0405 Results 24 hrs Laboratory Tests Test 03/12/17 13:24 03/12/17 17:28 03/12/17 21:31 03/13/17 01:32 Bedside Glucose 154 125 208 202 Test 03/13/17 04:05 03/13/17 05:29 03/13/17 09:07 White Blood Count 8.5 Red Blood Count 3.24 L Hemoglobin 9.7 L Hematocrit 31.9 L Mean Corpuscular Volume 98.5 Mean Corpuscular Hemoglobin 29.9 Mean Corpuscular Hemoglobin Concent 30.4 L Red Cell Distribution Width 14.3 Platelet Count 366 Mean Platelet Volume 10.5 H Neutrophils % 72.0 Lymphocytes % 14.2 L Monocytes % 9.6 Eosinophils % 2.8 Basophils % 0.6 Nucleated Red Blood Cells % 0.0 Neutrophils # 6.1 Lymphocytes # 1.2 Monocytes # 0.8 Eosinophils # 0.2 Basophils # 0.1 Nucleated Red Blood Cells # 0.0 Sodium Level 144 Potassium Level 3.4 L Chloride Level 91 L Carbon Dioxide Level 40 H Anion Gap 16 Blood Urea Nitrogen 10 Creatinine 0.62 Glucose Level 190 Calcium Level 8.5 Magnesium Level 2.2 Total Bilirubin 0.2 Direct Bilirubin 0.00 Indirect Bilirubin 0.2 Aspartate Amino Transf (AST/SGOT) 21 Alanine Aminotransferase (ALT/SGPT) 33 Alkaline Phosphatase 100 Total Protein 6.9 Albumin 3.3 Globulin 3.60 H Albumin/Globulin Ratio 0.91 Digoxin Level 0.5 L Bedside Glucose 195 199 Medications Medications Current Medications Acetaminophen (Tylenol Supp) 650 mg Q4H PRN [place] PAIN LEVEL 1-3 OR FEVER; Start 03/02/17 at 00:30 Miscellaneous Information 1 ea NOTE XX ; Start 03/02/17 at 00:30 Glucose (Glutose) 15 gm Q15M PRN PO DECREASED GLUCOSE; Start 03/02/17 at 00:30 Glucose (Glutose) 22.5 gm Q15M PRN PO DECREASED GLUCOSE; Start 03/02/17 at 00: 30 Dextrose (D50w Syringe) 25 ml Q15M PRN IV DECREASED GLUCOSE; Start 03/02/17 at 00:30 Dextrose (D50w Syringe) 50 ml Q15M PRN IV DECREASED GLUCOSE; Start 03/02/17 at 00:30 Glucagon (Glucagen) 1 mg Q15M PRN IM DECREASED GLUCOSE; Start 03/02/17 at 00:30 Glucose (Glutose) 15 gm Q15M PRN BUCCAL DECREASED GLUCOSE; Start 03/02/17 at 00 :30 Pantoprazole (Protonix Iv) 40 mg BID@06,18 IV Last administered on 03/13/17t 05 :43; Admin Dose 40 MG; Start 03/04/17 at 06:00 Insulin Aspart NOVOLOG *MILD* ALGORI... Q4 SC Last administered on 03/13/17 09 :09; Admin Dose 2 UNIT; Start 03/06/17 at 05:00 Norepinephrine/ Dextrose (Levophed/D5W) 500 ml @ 1.87 mls/hr TITRATE IV ; Start 03/06/17 at 07:00 Aspirin (Halfprin) 81 mg DAILY PO ; Start 03/07/17 at 09:00 Atorvastatin Calcium (Lipitor) 40 mg QHS PO ; Start 03/06/17 at 21:00 Diclofenac Sodium (Voltaren) 75 mg DAILY PO ; Start 03/07/17 at 09:00 Donepezil HCl (Aricept) 5 mg QHS PO ; Start 03/06/17 at 21:00 Hydralazine HCl (Apresoline) 10 mg Q6H PRN IV ELEVATED BLOOD PRESSURE Last administered on 03/11/17 06:54; Admin Dose 10 MG; Start 03/07/17 at 09:30 Aspirin (Aspirin) 300 mg DAILY [place] Last administered on 03/12/17 19:23; Admin Dose 300 MG; Start 03/09/17 at 09:00 Metoprolol Tartrate 25 mg 25 mg BID PO ; Start 03/09/17 at 09:00 Diltiazem HCl (Cardizem-D5W 125 Mg/125 ml Drip) 125 ml @ 5 mls/hr TITRATE IV Last administered on 03/12/17 09:34; Admin Dose 15 MLS/HR; Start 03/11/17 at 22 :30 Morphine Sulfate 3 mg 3 mg Q4H PRN IV PAIN LEVEL 6-10 Last administered on 03/13 07:42; Admin Dose 3 MG; Start 03/12/17 at 00:00 Potassium Chloride (KCl 40 MEQ/250 ML NS) 250 ml @ 62.5 mls/hr ONCE ONCE IVPB Last administered on 03/13/17 10:10; Admin Dose 62.5 MLS/HR; Start 03/13/17 at 09:30; Stop 03/13/17 at 13:29 ALFREDO BRUMFIELD Mar 13, 2017 10:40
--- NOTE | 2017-03-13 12:06 | PN ---
Date/Time of Note Date/Time of Note DATE: 03/13/17 TIME: 12:02 Assessment/Plan VTE Prophylaxis VTE Prophylaxis Intervention: SCD's Lines/Catheters [facility] Central Line Central line still needed: Yes Urinary Cath still in place: Yes Reason Cath still needed: urinary retention Assessment/Plan Assessment/Plan Assessment * Coffee ground emesis EGD 03/04/2017 Erosive esophagitis Erosive gastritis, NG tube trauma Nodular gastritis. Biopsies obtained * Sepsis * Acute respiratory failure managed by pulmonary * Failed swallow evaluation Plan * signed out but will follow up as needed * Continue present regimen * Monitor hemoglobin and hematocrit, transfuse as necessary. * Case discussed with Dr Cormier * Further orders will depend on clinical course Subjective 24 Hr Interval Summary Free Text/Dictation * Course reviewed with RN * Patient seen and examined * No untoward events overnight Exam/Review of Systems Vital Signs Vitals Vital Signs Date Time Temp Pulse Resp B/P Pulse Ox O2 Delivery O2 Flow Rate FiO2 03/13/17 10:00 118 13 124/80 92 Nasal Cannula 4.0 03/13/17 08:00 98.1 03/12/17 08:05 50 Intake and Output 03/12/17 03/12/17 03/13/17 15:00 23:00 07:00 Intake Total 690.6 ml 232.853 ml 116.62 ml Output Total 1290 ml 1145 ml 300 ml Balance -599.4 ml -912.147 ml -183.38 ml Exam Constitutional: frail Neck: non-tender, supple Respiratory: clear to auscultation, normal air movement Cardiovascular: nl pulses, regular rate and rhythm Gastrointestinal: nl liver, spleen, non-tender, soft Musculoskeletal: nl extremities to inspection, nl gait and stance Extremities: normal pulses Skin: nl turgor, No rash or lesions Lymph: nl lymph nodes Results Result Diagram: 03/13/17 0405 03/13/17 0405 Results 24 hrs Laboratory Tests Test 03/12/17 13:24 03/12/17 17:28 03/12/17 21:31 03/13/17 01:32 Bedside Glucose 154 125 208 202 Test 03/13/17 04:05 03/13/17 05:29 03/13/17 09:07 White Blood Count 8.5 Red Blood Count 3.24 L Hemoglobin 9.7 L Hematocrit 31.9 L Mean Corpuscular Volume 98.5 Mean Corpuscular Hemoglobin 29.9 Mean Corpuscular Hemoglobin Concent 30.4 L Red Cell Distribution Width 14.3 Platelet Count 366 Mean Platelet Volume 10.5 H Neutrophils % 72.0 Lymphocytes % 14.2 L Monocytes % 9.6 Eosinophils % 2.8 Basophils % 0.6 Nucleated Red Blood Cells % 0.0 Neutrophils # 6.1 Lymphocytes # 1.2 Monocytes # 0.8 Eosinophils # 0.2 Basophils # 0.1 Nucleated Red Blood Cells # 0.0 Sodium Level 144 Potassium Level 3.4 L Chloride Level 91 L Carbon Dioxide Level 40 H Anion Gap 16 Blood Urea Nitrogen 10 Creatinine 0.62 Glucose Level 190 Calcium Level 8.5 Magnesium Level 2.2 Total Bilirubin 0.2 Direct Bilirubin 0.00 Indirect Bilirubin 0.2 Aspartate Amino Transf (AST/SGOT) 21 Alanine Aminotransferase (ALT/SGPT) 33 Alkaline Phosphatase 100 Total Protein 6.9 Albumin 3.3 Globulin 3.60 H Albumin/Globulin Ratio 0.91 Digoxin Level 0.5 L Bedside Glucose 195 199 Medications Medications Current Medications Acetaminophen (Tylenol Supp) 650 mg Q4H PRN [place] PAIN LEVEL 1-3 OR FEVER; Start 03/02/17 at 00:30 Miscellaneous Information 1 ea NOTE XX ; Start 03/02/17 at 00:30 Glucose (Glutose) 15 gm Q15M PRN PO DECREASED GLUCOSE; Start 03/02/17 at 00:30 Glucose (Glutose) 22.5 gm Q15M PRN PO DECREASED GLUCOSE; Start 03/02/17 at 00: 30 Dextrose (D50w Syringe) 25 ml Q15M PRN IV DECREASED GLUCOSE; Start 03/02/17 at 00:30 Dextrose (D50w Syringe) 50 ml Q15M PRN IV DECREASED GLUCOSE; Start 03/02/17 at 00:30 Glucagon (Glucagen) 1 mg Q15M PRN IM DECREASED GLUCOSE; Start 03/02/17 at 00:30 Glucose (Glutose) 15 gm Q15M PRN BUCCAL DECREASED GLUCOSE; Start 03/02/17 at 00 :30 Pantoprazole (Protonix Iv) 40 mg BID@06,18 IV Last administered on 03/13/17t 05 :43; Admin Dose 40 MG; Start 03/04/17 at 06:00 Insulin Aspart NOVOLOG *MILD* ALGORI... Q4 SC Last administered on 03/13/17 09 :09; Admin Dose 2 UNIT; Start 03/06/17 at 05:00 Norepinephrine/ Dextrose (Levophed/D5W) 500 ml @ 1.87 mls/hr TITRATE IV ; Start 03/06/17 at 07:00 Aspirin (Halfprin) 81 mg DAILY PO ; Start 03/07/17 at 09:00 Atorvastatin Calcium (Lipitor) 40 mg QHS PO ; Start 03/06/17 at 21:00 Diclofenac Sodium (Voltaren) 75 mg DAILY PO ; Start 03/07/17 at 09:00 Donepezil HCl (Aricept) 5 mg QHS PO ; Start 03/06/17 at 21:00 Hydralazine HCl (Apresoline) 10 mg Q6H PRN IV ELEVATED BLOOD PRESSURE Last administered on 03/11/17 06:54; Admin Dose 10 MG; Start 03/07/17 at 09:30 Aspirin (Aspirin) 300 mg DAILY [place] Last administered on 03/12/17 19:23; Admin Dose 300 MG; Start 03/09/17 at 09:00 Metoprolol Tartrate 25 mg 25 mg BID PO ; Start 03/09/17 at 09:00 Diltiazem HCl (Cardizem-D5W 125 Mg/125 ml Drip) 125 ml @ 5 mls/hr TITRATE IV Last administered on 03/12/17 09:34; Admin Dose 15 MLS/HR; Start 03/11/17 at 22 :30 Morphine Sulfate 3 mg 3 mg Q4H PRN IV PAIN LEVEL 6-10 Last administered on 03/13 07:42; Admin Dose 3 MG; Start 03/12/17 at 00:00 Potassium Chloride (KCl 40 MEQ/250 ML NS) 250 ml @ 62.5 mls/hr ONCE ONCE IVPB Last administered on 03/13/17 10:10; Admin Dose 62.5 MLS/HR; Start 03/13/17 at 09:30; Stop 03/13/17 at 13:29 NATALIIA YAN NP Mar 13, 2017 12:06
--- NOTE | 2017-03-13 12:52 | CONS ---
Date/Time of Note Date/Time of Note DATE: 03/13/17 TIME: 12:48 Assessment/Plan Assessment/Plan Chief Complaint/Hosp Course Patient is doing better today she is off amiodarone and Cardizem drips and comfortable on nasal cannula, less restless. Temperature 98.1 pulse 123 respirations 14 blood pressure 124/80 saturation 94 on 4 L WBC 8.5 H&H 9.7 and 31.9 platelets 366 neutrophils 72 BN 10 creatinine 0.62 Indwelling's Pierce left subclavian triple-lumen catheter Physical examination: Chronically ill-appearing elderly woman who is in no distress. Head atraumatic normocephalic sclera nonicteric bugle mucosa dry. Neck is supple, trachea midline. Chest rise symmetrical breath sounds with scattered rhonchi. S1-S2. Abdomen soft bowel tones present. Extremities with trace edema. Assessment: 1. Status post septic shock 2. S/p pneumonia possibly aspiration 3. Acute respiratory failure, fluid overload 4. Diabetes 5. Non-ST elevation [place] 6. Rapid atrial fibrillation,s/p amiodarone and Cardizem drips Plan: Clinically improved, comfortable on nasal cannula continue present care, anti-aspiration measures, follow cardiology/pulmonary recommendations. Will reculture as needed Discussed with RN Problems: Consultation Date/Type/Reason Admit Date/Time Mar 01, 2017 at 20:20 Initial Consult Date 03/02/17 Type of Consultation: id Referring Provider: MICHELLE MORENO Exam/Review of Systems Vital Signs Vitals Vital Signs Date Time Temp Pulse Resp B/P Pulse Ox O2 Delivery O2 Flow Rate FiO2 03/13/17 12:00 123 03/13/17 10:00 13 124/80 92 Nasal Cannula 4.0 03/13/17 08:00 98.1 03/12/17 08:05 50 Intake and Output 03/12/17 03/12/17 03/13/17 15:00 23:00 07:00 Intake Total 690.6 ml 232.853 ml 116.62 ml Output Total 1290 ml 1145 ml 300 ml Balance -599.4 ml -912.147 ml -183.38 ml Results Result Diagram: 03/13/17 0405 03/13/17 0405 Results 24 hrs Laboratory Tests Test 03/12/17 13:24 03/12/17 17:28 03/12/17 21:31 03/13/17 01:32 Bedside Glucose 154 125 208 202 Test 03/13/17 04:05 03/13/17 05:29 03/13/17 09:07 White Blood Count 8.5 Red Blood Count 3.24 L Hemoglobin 9.7 L Hematocrit 31.9 L Mean Corpuscular Volume 98.5 Mean Corpuscular Hemoglobin 29.9 Mean Corpuscular Hemoglobin Concent 30.4 L Red Cell Distribution Width 14.3 Platelet Count 366 Mean Platelet Volume 10.5 H Neutrophils % 72.0 Lymphocytes % 14.2 L Monocytes % 9.6 Eosinophils % 2.8 Basophils % 0.6 Nucleated Red Blood Cells % 0.0 Neutrophils # 6.1 Lymphocytes # 1.2 Monocytes # 0.8 Eosinophils # 0.2 Basophils # 0.1 Nucleated Red Blood Cells # 0.0 Sodium Level 144 Potassium Level 3.4 L Chloride Level 91 L Carbon Dioxide Level 40 H Anion Gap 16 Blood Urea Nitrogen 10 Creatinine 0.62 Glucose Level 190 Calcium Level 8.5 Magnesium Level 2.2 Total Bilirubin 0.2 Direct Bilirubin 0.00 Indirect Bilirubin 0.2 Aspartate Amino Transf (AST/SGOT) 21 Alanine Aminotransferase (ALT/SGPT) 33 Alkaline Phosphatase 100 Total Protein 6.9 Albumin 3.3 Globulin 3.60 H Albumin/Globulin Ratio 0.91 Digoxin Level 0.5 L Bedside Glucose 195 199 Medications Medications Current Medications Acetaminophen (Tylenol Supp) 650 mg Q4H PRN [place] PAIN LEVEL 1-3 OR FEVER; Start 03/02/17 at 00:30 Miscellaneous Information 1 ea NOTE XX ; Start 03/02/17 at 00:30 Glucose (Glutose) 15 gm Q15M PRN PO DECREASED GLUCOSE; Start 03/02/17 at 00:30 Glucose (Glutose) 22.5 gm Q15M PRN PO DECREASED GLUCOSE; Start 03/02/17 at 00: 30 Dextrose (D50w Syringe) 25 ml Q15M PRN IV DECREASED GLUCOSE; Start 03/02/17 at 00:30 Dextrose (D50w Syringe) 50 ml Q15M PRN IV DECREASED GLUCOSE; Start 03/02/17 at 00:30 Glucagon (Glucagen) 1 mg Q15M PRN IM DECREASED GLUCOSE; Start 03/02/17 at 00:30 Glucose (Glutose) 15 gm Q15M PRN BUCCAL DECREASED GLUCOSE; Start 03/02/17 at 00 :30 Pantoprazole (Protonix Iv) 40 mg BID@06,18 IV Last administered on 03/13/17 05 :43; Admin Dose 40 MG; Start 03/04/17 at 06:00 Insulin Aspart NOVOLOG *MILD* ALGORI... Q4 SC Last administered on 03/13/17 09 :09; Admin Dose 2 UNIT; Start 03/06/17 at 05:00 Norepinephrine/ Dextrose (Levophed/D5W) 500 ml @ 1.87 mls/hr TITRATE IV ; Start 03/06/17 at 07:00 Aspirin (Halfprin) 81 mg DAILY PO ; Start 03/07/17 at 09:00 Atorvastatin Calcium (Lipitor) 40 mg QHS PO ; Start 03/06/17 at 21:00 Diclofenac Sodium (Voltaren) 75 mg DAILY PO ; Start 03/07/17 at 09:00 Donepezil HCl (Aricept) 5 mg QHS PO ; Start 03/06/17 at 21:00 Hydralazine HCl (Apresoline) 10 mg Q6H PRN IV ELEVATED BLOOD PRESSURE Last administered on 03/11/17 06:54; Admin Dose 10 MG; Start 03/07/17 at 09:30 Aspirin (Aspirin) 300 mg DAILY [place] Last administered on 03/12/17 19:23; Admin Dose 300 MG; Start 03/09/17 at 09:00 Metoprolol Tartrate 25 mg 25 mg BID PO ; Start 03/09/17 at 09:00 Diltiazem HCl (Cardizem-D5W 125 Mg/125 ml Drip) 125 ml @ 5 mls/hr TITRATE IV Last administered on 03/12/17 09:34; Admin Dose 15 MLS/HR; Start 03/11/17 at 22 :30 Morphine Sulfate 3 mg 3 mg Q4H PRN IV PAIN LEVEL 6-10 Last administered on 03/13 07:42; Admin Dose 3 MG; Start 03/12/17 at 00:00 Potassium Chloride (KCl 40 MEQ/250 ML NS) 250 ml @ 62.5 mls/hr ONCE ONCE IVPB Last administered on 03/13/17 10:10; Admin Dose 62.5 MLS/HR; Start 03/13/17 at 09:30; Stop 03/13/17 at 13:29 HAO CUTLER NP Mar 13, 2017 12:52
[2017-03-13] MEDS: DILTIAZEM-D5W 125MG/125ML DRIP 125 ML IV SCH (14:54)
--- NOTE | 2017-03-13 16:29 | PN ---
Date/Time of Note Date/Time of Note DATE: 03/13/17 TIME: 16:27 Assessment/Plan VTE Prophylaxis VTE Prophylaxis Intervention: other Lines/Catheters IV Catheter Type (from Nrs): Central Line Central line still needed: Yes Urinary Cath still in place: Yes Reason Cath still needed: other (indicate) Assessment/Plan Chief Complaint/Hosp Course 1. P afib/ flutter with RVR: 2. acute hypoxemic respiratory failure: extubated now but still very hypoxemic 3. + troponin: c.w NSTEMI due to demand ischemia due to above 4. DM and severely elevated glucose: controlled with insulin 5. dyslipidemia 6. pneumonia/ sepsis 7. s/p shock : appear to be related to sepsis: currently off of levophed 8. hx memory impairment 9. anemia and GI bleed: stable now 10. hypo K. cont ASA off of plavix due to above resume cardizem drip unable to take any po meds now. will start po betablocker once able to take po meds DM Control with insulin echo shows normal EF replace lytes including K and Mg prn. Problems: Subjective 24 Hr Interval Summary Free Text/Dictation CARDIOLOGY FOLLOW UP NOTE/ critical care note d/w staff in ICU and rhythm was reviewed. pt has remained AFLUTTER/ FIB WITH RVR overnight. HR was variable. pt is EXTUBATED 03/08 no more bleeding is reported. she denies any chest pain to me but confused. pt has been less hypoxemic she is still NPO OBJECTIVE: General: no acute distress HEENT: NC/AT. pupils are constricted. round. NECK: NO JVD. no stridor. CV: irregularly irregular. systolic murmur; no gallop or rubs. PULM: + diffuse rhonchi. GI: SOFT, NT, ND, no rebound or guarding Extremity: trace B/L LE edema. no clubbing. neuro: awake and alert Psych: calm now. rectal: deferred : normal Exam/Review of Systems Vital Signs Vitals Vital Signs Date Time Temp Pulse Resp B/P Pulse Ox O2 Delivery O2 Flow Rate FiO2 03/13/17 16:00 99.1 80 15 131/49 94 Nasal Cannula 4.0 03/12/17 08:05 50 Intake and Output 03/12/17 03/12/17 03/13/17 15:00 23:00 07:00 Intake Total 690.6 ml 232.853 ml 116.62 ml Output Total 1290 ml 1145 ml 300 ml Balance -599.4 ml -912.147 ml -183.38 ml Results Result Diagram: 03/13/175 03/13/17 0405 Results 24 hrs Laboratory Tests Test 03/12/17 17:28 03/12/17 21:31 03/13/17 01:32 03/13/17 04:05 Bedside Glucose 125 208 202 White Blood Count 8.5 Red Blood Count 3.24 L Hemoglobin 9.7 L Hematocrit 31.9 L Mean Corpuscular Volume 98.5 Mean Corpuscular Hemoglobin 29.9 Mean Corpuscular Hemoglobin Concent 30.4 L Red Cell Distribution Width 14.3 Platelet Count 366 Mean Platelet Volume 10.5 H Neutrophils % 72.0 Lymphocytes % 14.2 L Monocytes % 9.6 Eosinophils % 2.8 Basophils % 0.6 Nucleated Red Blood Cells % 0.0 Neutrophils # 6.1 Lymphocytes # 1.2 Monocytes # 0.8 Eosinophils # 0.2 Basophils # 0.1 Nucleated Red Blood Cells # 0.0 Sodium Level 144 Potassium Level 3.4 L Chloride Level 91 L Carbon Dioxide Level 40 H Anion Gap 16 Blood Urea Nitrogen 10 Creatinine 0.62 Glucose Level 190 Calcium Level 8.5 Magnesium Level 2.2 Total Bilirubin 0.2 Direct Bilirubin 0.00 Indirect Bilirubin 0.2 Aspartate Amino Transf (AST/SGOT) 21 Alanine Aminotransferase (ALT/SGPT) 33 Alkaline Phosphatase 100 Total Protein 6.9 Albumin 3.3 Globulin 3.60 H Albumin/Globulin Ratio 0.91 Digoxin Level 0.5 L Test 03/13/17 05:29 03/13/17 09:07 03/13/17 13:09 Bedside Glucose 195 199 201 Medications Medications Current Medications Acetaminophen (Tylenol Supp) 650 mg Q4H PRN [place] PAIN LEVEL 1-3 OR FEVER; Start 03/02/17 at 00:30 Miscellaneous Information 1 ea NOTE XX ; Start 03/02/17 at 00:30 Glucose (Glutose) 15 gm Q15M PRN PO DECREASED GLUCOSE; Start 03/02/17 at 00:30 Glucose (Glutose) 22.5 gm Q15M PRN PO DECREASED GLUCOSE; Start 03/02/17 at 00: 30 Dextrose (D50w Syringe) 25 ml Q15M PRN IV DECREASED GLUCOSE; Start 03/02/17 at 00:30 Dextrose (D50w Syringe) 50 ml Q15M PRN IV DECREASED GLUCOSE; Start 03/02/17 at 00:30 Glucagon (Glucagen) 1 mg Q15M PRN IM DECREASED GLUCOSE; Start 03/02/17 at 00:30 Glucose (Glutose) 15 gm Q15M PRN BUCCAL DECREASED GLUCOSE; Start 03/02/17 at 00 :30 Pantoprazole (Protonix Iv) 40 mg BID@06,18 IV Last administered on 03/13/17 05 :43; Admin Dose 40 MG; Start 03/04/17 at 06:00 Insulin Aspart NOVOLOG *MILD* ALGORI... Q4 SC Last administered on 03/13/17 13 :11; Admin Dose 2 UNIT; Start 03/06/17 at 05:00 Norepinephrine/ Dextrose (Levophed/D5W) 500 ml @ 1.87 mls/hr TITRATE IV ; Start 03/06/17 at 07:00 Aspirin (Halfprin) 81 mg DAILY PO ; Start 03/07/17 at 09:00 Atorvastatin Calcium (Lipitor) 40 mg QHS PO ; Start 03/06/17 at 21:00 Diclofenac Sodium (Voltaren) 75 mg DAILY PO ; Start 03/07/17 at 09:00 Donepezil HCl (Aricept) 5 mg QHS PO ; Start 03/06/17 at 21:00 Hydralazine HCl (Apresoline) 10 mg Q6H PRN IV ELEVATED BLOOD PRESSURE Last administered on 03/11/17 06:54; Admin Dose 10 MG; Start 03/07/17 at 09:30 Aspirin (Aspirin) 300 mg DAILY [place] Last administered on 03/12/17 19:23; Admin Dose 300 MG; Start 03/09/17 at 09:00 Metoprolol Tartrate 25 mg 25 mg BID PO ; Start 03/09/17 at 09:00 Diltiazem HCl (Cardizem-D5W 125 Mg/125 ml Drip) 125 ml @ 5 mls/hr TITRATE IV Last administered on 03/13/17 14:54; Admin Dose 5 MLS/HR; Start 03/11/17 at 22: 30 Morphine Sulfate (morphine) 3 mg Q4H PRN IV PAIN LEVEL 6-10 Last administered on 03/13/17 07:42; Admin Dose 3 MG; Start 03/12/17 at 00:00 TYREE MCKOY MD Mar 13, 2017 16:29
[2017-03-13] MEDS: ASPIRIN 300 MG SUPP PR SCH (19:21)
[2017-03-13] MEDS: DONEPEZIL 5 MG TAB PO SCH (20:00)
[2017-03-13] MEDS: ATORVASTATIN 40 MG TAB PO SCH (20:00)
[2017-03-14] VITALS (44 sets, daily range): BP systolic 90–138; BP diastolic 39–96; PULSE 74–108; RESP 11–33
[2017-03-14] MEDS: DILTIAZEM-D5W 125MG/125ML DRIP 125 ML IV SCH ×3 (00:17→17:22)
[2017-03-14] MEDS: INSULIN ASPART [NOVOLOG] 3 ML PEN SC SCH ×5 (01:28→16:49)
[2017-03-14 05:32] LABS: BASOPHIL # 0.1 10^3/ul (0.0-0.1); BASOPHILS % 0.6 % (0.0-2.0); EOSINOPHILS # 0.2 10^3/ul (0.0-0.5); EOSINOPHILS % 1.9 % (0.0-7.0); HEMATOCRIT 32.2 % (37.0-47.0); LYMPHOCYTES # 1.6 10^3/ul (0.8-2.9); LYMPHOCYTES % 17.9 % (15.0-51.0); MEAN CORPUSCULAR HEMOGLOBIN 30.7 pg (29.0-33.0); MEAN CORPUSCULAR HGB CONC 31.1 g/dl (32.0-37.0); MEAN CORPUSCULAR VOLUME 98.8 fl (82.0-101.0); MEAN PLATELET VOLUME 10.7 fl (7.4-10.4); MONOCYTE # 0.8 10^3/ul (0.3-0.9); MONOCYTES % 8.9 % (0.0-11.0); NEUTROPHIL # 6.2 10^3/ul (1.6-7.5); NEUTROPHILS % 70.2 % (39.0-77.0); PLATELET COUNT 391 10^3/UL (140-415); RED BLOOD COUNT 3.26 10^6/ul (4.20-5.40); RED CELL DISTRIBUTION WIDTH 14.3 % (11.5-14.5); WHITE BLOOD COUNT 8.9 10^3/ul (4.8-10.8)
[2017-03-14] MEDS: PANTOPRAZOLE 40 MG INJ IV SCH ×2 (05:56→17:05)
[2017-03-14] MEDS: FUROSEMIDE 40 MG INJ IV SCH ×2 (05:56→17:05)
[2017-03-14 06:18] LABS: CREATININE 0.8 mg/dl (0.44-1.00); POTASSIUM 3.7 mmol/L (3.5-5.1)
[2017-03-14 06:19] LABS: MAGNESIUM 1.7 mg/dl (1.7-2.5); PHOSPHORUS 3.3 mg/dl (2.5-4.9)
[2017-03-14] MEDS: morphine 4 MG/ML VIAL IV PRN ×2 (07:53→13:06)
[2017-03-14] MEDS: ASPIRIN (EC) 81 MG TAB PO SCH (09:00)
[2017-03-14] MEDS: METOPROLOL 25 MG TAB PO SCH (09:00)
[2017-03-14] MEDS: DICLOFENAC (EC) 75 MG TAB PO SCH (09:00)
--- NOTE | 2017-03-14 09:52 | PN ---
Date/Time of Note Date/Time of Note DATE: 03/14/17 TIME: 09:50 Assessment/Plan VTE Prophylaxis VTE Prophylaxis Intervention: SCD's Lines/Catheters IV Catheter Type (from Nrsg): Central Line Central line still needed: Yes (hard stick) Urinary Cath still in place: Yes Reason Cath still needed: other (indicate) (not needed) Assessment/Plan Assessment/Plan 86 yo F with dementia admitted from facility for acute hypoxic respiratory failure and sepsis: likely 2/2 aspiration pneumonia. EXTUBATED 03/08. 1. acute hypoxic respiratory failure: 2/2 aspiration pna, now extubated. f/u pulmonology recs, duoneb's prn; sp abx 2. Severe sepsis: from aspiration pna, ID following. Likely secondary to respiratory infection. sp abx 3. Tachycardia: afib with RVR vs sinus tach (fluctuates) -cont bb. of note, not on ATC 4. suspected fungal esophagitis: sp antifungal 5. diabetes mellitus: Continue insulin sliding scale. resume basal insulin once pt taking PO again 6. History of essential hypertension: ARB on hold 7. Questionable GI bleed: sp EGD 7.15 , +gastritis - f/u GI rec's, continue PPI IV - avoid NG tube for now unless absolutely necessary - ST eval is still pending to reassess, then hopefully change PPI to PO 8. DVT and GI prophylaxis: SCDs, Protonix 9. thyroid - 7.13 labs notable for hyperthyroid (TSH low, t4 high)-->consider post discharge fu with PCP 10. hypernatremia - resolved now, monitor 11. low electrolytes: Replete as needed again today. Code status: unfortunately pt with dementia and no advanced directive or family. Given aspiration most likely 2/2 dementia for which there is no cure, suspect aspiration will occur again. Appreciate palliative team consult, they are trying to contact family members [place]. May need to schedule bioethics mtg in next few days as well if family cannot be contacted. critical care time: 35minutes Subjective 24 Hr Interval Summary Free Text/Dictation Attempted to use language line to facilitate goals of care conversation with patient. She was not able to state the year, was not oriented to place. When I asked if she'd want to be put back on the breathing machine she said I scared her and then asked for my mother's name Exam/Review of Systems Vital Signs Vitals Vital Signs Date Time Temp Pulse Resp B/P Pulse Ox O2 Delivery O2 Flow Rate FiO2 03/14/17 08:00 98 03/14/17 06:00 21 118/56 95 Nasal Cannula 4.0 03/14/17 04:00 98.3 03/12/17 08:05 50 Intake and Output 03/13/17 03/13/17 03/14/17 15:00 23:00 07:00 Intake Total 307.98 ml 100 ml 105 ml Output Total 1490 ml 790 ml 210 ml Balance -1182.02 ml -690 ml -105 ml Exam sitting up in bed, wearing oxygen mask (of note, when O2 mask removed pt desatted to high 70s) no mrg lungs clear in [place] abd soft no rashes +restraints and alberts Results Result Diagram: 03/14/17 0415 03/14/17 0415 Results 24 hrs Laboratory Tests Test 03/13/17 13:09 03/13/17 17:18 03/13/17 20:41 03/14/17 01:25 Bedside Glucose 201 99 156 186 Test 03/14/17 04:15 03/14/17 05:56 03/14/17 09:40 White Blood Count 8.9 Red Blood Count 3.26 L Hemoglobin 10.0 L Hematocrit 32.2 L Mean Corpuscular Volume 98.8 Mean Corpuscular Hemoglobin 30.7 Mean Corpuscular Hemoglobin Concent 31.1 L Red Cell Distribution Width 14.3 Platelet Count 391 Mean Platelet Volume 10.7 H Neutrophils % 70.2 Lymphocytes % 17.9 Monocytes % 8.9 Eosinophils % 1.9 Basophils % 0.6 Nucleated Red Blood Cells % 0.0 Neutrophils # 6.2 Lymphocytes # 1.6 Monocytes # 0.8 Eosinophils # 0.2 Basophils # 0.1 Nucleated Red Blood Cells # 0.0 Sodium Level 144 Potassium Level 3.7 Chloride Level 92 L Carbon Dioxide Level 39 H Anion Gap 17 H Blood Urea Nitrogen 15 Creatinine 0.80 Glucose Level 190 Calcium Level 9.0 Phosphorus Level 3.3 Magnesium Level 1.7 Bedside Glucose 188 171 Medications Medications Current Medications Acetaminophen (Tylenol Supp) 650 mg Q4H PRN [place] PAIN LEVEL 1-3 OR FEVER; Start 03/02/17 at 00:30 Miscellaneous Information 1 ea NOTE XX ; Start 03/02/17 at 00:30 Glucose (Glutose) 15 gm Q15M PRN PO DECREASED GLUCOSE; Start 03/02/17 at 00:30 Glucose (Glutose) 22.5 gm Q15M PRN PO DECREASED GLUCOSE; Start 03/02/17 at 00: 30 Dextrose (D50w Syringe) 25 ml Q15M PRN IV DECREASED GLUCOSE; Start 03/02/17 at 00:30 Dextrose (D50w Syringe) 50 ml Q15M PRN IV DECREASED GLUCOSE; Start 03/02/17 at 00:30 Glucagon (Glucagen) 1 mg Q15M PRN IM DECREASED GLUCOSE; Start 03/02/17 at 00:30 Glucose (Glutose) 15 gm Q15M PRN BUCCAL DECREASED GLUCOSE; Start 03/02/17 at 00 :30 Pantoprazole (Protonix Iv) 40 mg BID@06,18 IV Last administered on 03/14/17 05 :56; Admin Dose 40 MG; Start 03/04/17 at 06:00 Insulin Aspart NOVOLOG *MILD* ALGORI... Q4 SC Last administered on 03/14/17 09 :43; Admin Dose 1 UNIT; Start 03/06/17 at 05:00 Norepinephrine/ Dextrose (Levophed/D5W) 500 ml @ 1.87 mls/hr TITRATE IV ; Start 03/06/17 at 07:00 Aspirin (Halfprin) 81 mg DAILY PO ; Start 03/07/17 at 09:00 Atorvastatin Calcium (Lipitor) 40 mg QHS PO ; Start 03/06/17 at 21:00 Diclofenac Sodium (Voltaren) 75 mg DAILY PO ; Start 03/07/17 at 09:00 Donepezil HCl (Aricept) 5 mg QHS PO ; Start 03/06/17 at 21:00 Hydralazine HCl (Apresoline) 10 mg Q6H PRN IV ELEVATED BLOOD PRESSURE Last administered on 03/11/17 06:54; Admin Dose 10 MG; Start 03/07/17 at 09:30 Aspirin (Aspirin) 300 mg DAILY [place] Last administered on 03/13/17 19:21; Admin Dose 300 MG; Start 03/09/17 at 09:00 Metoprolol Tartrate 25 mg 25 mg BID PO ; Start 03/09/17 at 09:00 Diltiazem HCl (Cardizem-D5W 125 Mg/125 ml Drip) 125 ml @ 5 mls/hr TITRATE IV Last administered on 03/14/17 06:51; Admin Dose 15 MLS/HR; Start 03/11/17 at 22 :30 Morphine Sulfate (morphine) 3 mg Q4H PRN IV PAIN LEVEL 6-10 Last administered on 03/14/17 07:53; Admin Dose 3 MG; Start 03/12/17 at 00:00 NICK BROWN MD Mar 14, 2017 09:52 NICK BROWN MD Mar 14, 2017 09:52
--- NOTE | 2017-03-14 10:47 | CONS ---
Date/Time of Note Date/Time of Note DATE: 03/14/17 TIME: 10:46 Assessment/Plan Assessment/Plan Chief Complaint/Hosp Course No acute changes patient is awake, confused, comfortable on facemask Temperature 98 pulse 77 respirations 22 blood pressure 125/47 saturation 94 on 6 L of facemask WBC 8.9 H&H 10 and 32.2 platelets 391 neutrophils 70.2 BN 15 creatinine 0.80 Indwelling's Pierce left subclavian triple-lumen catheter Physical examination: Chronically ill-appearing elderly woman who is awake, confused, in no distress. Head atraumatic normocephalic sclera nonicteric bugle mucosa dry. Neck is supple, trachea midline. Chest rise symmetrical breath sounds with scattered rhonchi. S1-S2. Abdomen soft bowel tones present. Extremities with trace edema. Assessment: 1. Status post septic shock 2. S/p pneumonia possibly aspiration 3. Acute respiratory failure, fluid overload 4. Diabetes 5. Non-ST elevation NH 6. Rapid atrial fibrillation,s/p amiodarone and Cardizem drips Plan: Remains stable, continue present care, anti-aspiration measures, follow cardiology/pulmonary recommendations. Will reculture as needed Discussed with RN Problems: Consultation Date/Type/Reason Admit Date/Time Mar 01, 2017 at 20:20 Initial Consult Date 03/02/17 Type of Consultation: id Referring Provider: MICHELLE MORENO Exam/Review of Systems Vital Signs Vitals Vital Signs Date Time Temp Pulse Resp B/P Pulse Ox O2 Delivery O2 Flow Rate FiO2 03/14/17 10:00 92 23 124/76 92 Mask 6.0 03/14/17 08:00 98.0 03/12/17 08:05 50 Intake and Output 03/13/17 03/13/17 03/14/17 15:00 23:00 07:00 Intake Total 307.98 ml 100 ml 105 ml Output Total 1490 ml 790 ml 210 ml Balance -1182.02 ml -690 ml -105 ml Results Result Diagram: 03/14/17 0415 03/14/17 0415 Results 24 hrs Laboratory Tests Test 03/13/17 13:09 03/13/17 17:18 03/13/17 20:41 03/14/17 01:25 Bedside Glucose 201 99 156 186 Test 03/14/17 04:15 03/14/17 05:56 03/14/17 09:40 White Blood Count 8.9 Red Blood Count 3.26 L Hemoglobin 10.0 L Hematocrit 32.2 L Mean Corpuscular Volume 98.8 Mean Corpuscular Hemoglobin 30.7 Mean Corpuscular Hemoglobin Concent 31.1 L Red Cell Distribution Width 14.3 Platelet Count 391 Mean Platelet Volume 10.7 H Neutrophils % 70.2 Lymphocytes % 17.9 Monocytes % 8.9 Eosinophils % 1.9 Basophils % 0.6 Nucleated Red Blood Cells % 0.0 Neutrophils # 6.2 Lymphocytes # 1.6 Monocytes # 0.8 Eosinophils # 0.2 Basophils # 0.1 Nucleated Red Blood Cells # 0.0 Sodium Level 144 Potassium Level 3.7 Chloride Level 92 L Carbon Dioxide Level 39 H Anion Gap 17 H Blood Urea Nitrogen 15 Creatinine 0.80 Glucose Level 190 Calcium Level 9.0 Phosphorus Level 3.3 Magnesium Level 1.7 Bedside Glucose 188 171 Medications Medications Current Medications Acetaminophen (Tylenol Supp) 650 mg Q4H PRN [place] PAIN LEVEL 1-3 OR FEVER; Start 03/02/17 at 00:30 Miscellaneous Information 1 ea NOTE XX ; Start 03/02/17 at 00:30 Glucose (Glutose) 15 gm Q15M PRN PO DECREASED GLUCOSE; Start 03/02/17 at 00:30 Glucose (Glutose) 22.5 gm Q15M PRN PO DECREASED GLUCOSE; Start 03/02/17 at 00: 30 Dextrose (D50w Syringe) 25 ml Q15M PRN IV DECREASED GLUCOSE; Start 03/02/17 at 00:30 Dextrose (D50w Syringe) 50 ml Q15M PRN IV DECREASED GLUCOSE; Start 03/02/17 at 00:30 Glucagon (Glucagen) 1 mg Q15M PRN IM DECREASED GLUCOSE; Start 03/02/17 at 00:30 Glucose (Glutose) 15 gm Q15M PRN BUCCAL DECREASED GLUCOSE; Start 03/02/17 at 00 :30 Pantoprazole (Protonix Iv) 40 mg BID@06,18 IV Last administered on 03/14/17 05 :56; Admin Dose 40 MG; Start 03/04/17 at 06:00 Insulin Aspart (Novolog Insulin Pen) NOVOLOG *MILD* ALGORI... Q4 SC Last administered on 03/14/17 09:43; Admin Dose 1 UNIT; Start 03/06/17 at 05:00 Aspirin (Halfprin) 81 mg DAILY PO ; Start 03/07/17 at 09:00 Atorvastatin Calcium (Lipitor) 40 mg QHS PO ; Start 03/06/17 at 21:00 Diclofenac Sodium (Voltaren) 75 mg DAILY PO ; Start 03/07/17 at 09:00 Donepezil HCl (Aricept) 5 mg QHS PO ; Start 03/06/17 at 21:00 Aspirin (Aspirin) 300 mg DAILY [place] Last administered on 03/13/17 19:21; Admin Dose 300 MG; Start 03/09/17 at 09:00 Metoprolol Tartrate 25 mg 25 mg BID PO ; Start 03/09/17 at 09:00 Diltiazem HCl (Cardizem-D5W 125 Mg/125 ml Drip) 125 ml @ 5 mls/hr TITRATE IV Last administered on 03/14/17 06:51; Admin Dose 15 MLS/HR; Start 03/11/17 at 22 :30 Morphine Sulfate (morphine) 3 mg Q4H PRN IV PAIN LEVEL 6-10 Last administered on 03/14/17 07:53; Admin Dose 3 MG; Start 03/12/17 at 00:00 HAO CUTLER NP Mar 14, 2017 10:47
--- NOTE | 2017-03-14 11:21 | CONS ---
Date/Time of Note Date/Time of Note DATE: 03/14/17 TIME: 11:19 Consult Date/Type/Reason Admit Date/Time Mar 01, 2017 at 20:20 Initial Consult Date 03/02/17 Type of Consultation: Pulmonary Ordering Provider: MICHELLE MORENO Subjective Patient remains mildly confused. Continues Ventimask oxygen. Continues diltiazem drip she remains n.p.o. for aspiration precautions. Otherwise awake and alert no obvious respiratory distress. Objective Vital Signs Date Time Temp Pulse Resp B/P Pulse Ox O2 Delivery O2 Flow Rate FiO2 03/14/17 10:00 92 23 124/76 92 Mask 6.0 03/14/17 08:00 98.0 03/12/17 08:05 50 Intake and Output 03/13/17 03/13/17 03/14/17 14:59 22:59 06:59 Intake Total 307.98 ml 85 ml 120 ml Output Total 1450 ml 800 ml 240 ml Balance -1142.02 ml -715 ml -120 ml Exam PHYSICAL EXAMINATION GENERAL: Elderly lady facemask oxygen confused intermittent agitation VITAL SIGNS: see below. HEENT: Pupils equal, round, and reactive to light. CARDIAC: S1, S2, 1/6 systolic ejection murmur CHEST: Diminished air entry bilaterally. ABDOMEN: Mildly distended. Bowel sounds present no guarding or rebound EXTREMITIES: No cyanosis, clubbing edema +1 NEUROLOGIC: Generalized weakness Results/Medications Result Diagram: 03/14/17 0415 03/14/17 0415 Results 24 hrs Chest x-ray 1. Left subclavian vein catheter in satisfactory position. 2. Mild pulmonary edema, slightly worse than seen previously. 3. Otherwise normal chest x-ray. Laboratory Tests Test 03/13/17 13:09 03/13/17 17:18 03/13/17 20:41 03/14/17 01:25 Bedside Glucose 201 99 156 186 Test 03/14/17 04:15 03/14/17 05:56 03/14/17 09:40 White Blood Count 8.9 Red Blood Count 3.26 L Hemoglobin 10.0 L Hematocrit 32.2 L Mean Corpuscular Volume 98.8 Mean Corpuscular Hemoglobin 30.7 Mean Corpuscular Hemoglobin Concent 31.1 L Red Cell Distribution Width 14.3 Platelet Count 391 Mean Platelet Volume 10.7 H Neutrophils % 70.2 Lymphocytes % 17.9 Monocytes % 8.9 Eosinophils % 1.9 Basophils % 0.6 Nucleated Red Blood Cells % 0.0 Neutrophils # 6.2 Lymphocytes # 1.6 Monocytes # 0.8 Eosinophils # 0.2 Basophils # 0.1 Nucleated Red Blood Cells # 0.0 Sodium Level 144 Potassium Level 3.7 Chloride Level 92 L Carbon Dioxide Level 39 H Anion Gap 17 H Blood Urea Nitrogen 15 Creatinine 0.80 Glucose Level 190 Calcium Level 9.0 Phosphorus Level 3.3 Magnesium Level 1.7 Bedside Glucose 188 171 Medications Current Medications Acetaminophen (Tylenol Supp) 650 mg Q4H PRN [place] PAIN LEVEL 1-3 OR FEVER; Start 03/02/17 at 00:30 Miscellaneous Information 1 ea NOTE XX ; Start 03/02/17 at 00:30 Glucose (Glutose) 15 gm Q15M PRN PO DECREASED GLUCOSE; Start 03/02/17 at 00:30 Glucose (Glutose) 22.5 gm Q15M PRN PO DECREASED GLUCOSE; Start 03/02/17 at 00: 30 Dextrose (D50w Syringe) 25 ml Q15M PRN IV DECREASED GLUCOSE; Start 03/02/17 at 00:30 Dextrose (D50w Syringe) 50 ml Q15M PRN IV DECREASED GLUCOSE; Start 03/02/17 at 00:30 Glucagon (Glucagen) 1 mg Q15M PRN IM DECREASED GLUCOSE; Start 03/02/17 at 00:30 Glucose (Glutose) 15 gm Q15M PRN BUCCAL DECREASED GLUCOSE; Start 03/02/17 at 00 :30 Pantoprazole (Protonix Iv) 40 mg BID@06,18 IV Last administered on 03/14/17 05 :56; Admin Dose 40 MG; Start 03/04/17 at 06:00 Insulin Aspart (Novolog Insulin Pen) NOVOLOG *MILD* ALGORI... Q4 SC Last administered on 03/14/17 09:43; Admin Dose 1 UNIT; Start 03/06/17 at 05:00 Aspirin (Halfprin) 81 mg DAILY PO ; Start 03/07/17 at 09:00 Atorvastatin Calcium (Lipitor) 40 mg QHS PO ; Start 03/06/17 at 21:00 Diclofenac Sodium (Voltaren) 75 mg DAILY PO ; Start 03/07/17 at 09:00 Donepezil HCl (Aricept) 5 mg QHS PO ; Start 03/06/17 at 21:00 Aspirin (Aspirin) 300 mg DAILY [place] Last administered on 03/13/17 19:21; Admin Dose 300 MG; Start 03/09/17 at 09:00 Metoprolol Tartrate 25 mg 25 mg BID PO ; Start 03/09/17 at 09:00 Diltiazem HCl (Cardizem-D5W 125 Mg/125 ml Drip) 125 ml @ 5 mls/hr TITRATE IV Last administered on 03/14/17 06:51; Admin Dose 15 MLS/HR; Start 03/11/17 at 22 :30 Morphine Sulfate (morphine) 3 mg Q4H PRN IV PAIN LEVEL 6-10 Last administered on 03/14/17 07:53; Admin Dose 3 MG; Start 03/12/17 at 00:00 Assessment/Plan Chief Complaint/Hosp Course Assessment 1. Hypoxemic and hypercapnic respiratory failure likely secondary to community- acquired pneumonia now extubated from mechanical ventilation worsening hypoxemia likely secondary to pulmonary edema given last radiographic findings. 2. Atrial fibrillation with rapid ventricular rate likely exacerbated by hypoxemia and cardiac ischemia 3. 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 Status post septic shock secondary to above 4. Erosive gastritis on EGD findings. Nasogastric tube has been removed per GI recommendations 6. Delirium. Likely toxic metabolic. Plan 1. Continue diuretics 2. Broad-spectrum antibiotic coverage 3. Speech therapy evaluation advance diet as tolerated 4. Nasal cannula oxygen 5. Continue insulin as needed. 6. May require reintubation if fails diuretics and supplemental O2 7. Continue rate control per cardiology. P.o. medications if stable to swallow. Disposition critical care time 40 minutes discussed with primary team and nursing staff Problems: MARY ALY MD, [facility] Mar 14, 2017 11:21
--- NOTE | 2017-03-14 15:50 | RADRPT ---
Vent Rate: 144 bpm RR Interval: 0 msec [place] Interval: 0 msec QRS Duration: 68 msec QT Interval: 290 msec QTC Interval: 449 msec P-R-T [place]: 0 - -59 - 136 degrees SVT Left axis deviation Pulmonary disease pattern Nonspecific ST and T wave abnormality Abnormal ECG Electronically Signed By: Joseph Self [id number]
--- NOTE | 2017-03-14 17:09 | PN ---
Date/Time of Note Date/Time of Note DATE: 03/14/17 TIME: 17:00 Assessment/Plan VTE Prophylaxis VTE Prophylaxis Intervention: other Lines/Catheters IV Catheter Type (from Nrs): Central Line Central line still needed: Yes Urinary Cath still in place: Yes Reason Cath still needed: other (indicate) Assessment/Plan Chief Complaint/Hosp Course 1. P afib/ flutter with RVR: 2. acute hypoxemic respiratory failure: extubated now but still very hypoxemic 3. + troponin: c.w NSTEMI due to demand ischemia due to above 4. DM and severely elevated glucose: controlled with insulin 5. dyslipidemia 6. pneumonia/ sepsis 7. s/p shock : appear to be related to sepsis: currently off of levophed 8. hx memory impairment 9. anemia and GI bleed: stable now 10. hypo K. cont ASA off of plavix due to above resume cardizem drip resume metoprolol now that pt is able to take po meds DM Control with insulin echo shows normal EF replace lytes including K and Mg prn. Problems: Subjective 24 Hr Interval Summary Free Text/Dictation CARDIOLOGY FOLLOW UP NOTE/ critical care note d/w staff in ICU and rhythm was reviewed. pt has remained AFLUTTER/ FIB WITH RVR overnight. HR is stable now on cardizem drip pt is EXTUBATED 03/08 no more bleeding is reported. she denies any chest pain to me but confused. pt has been less hypoxemic OBJECTIVE: General: no acute distress HEENT: NC/AT. pupils are constricted. round. NECK: NO JVD. no stridor. CV: irregularly irregular. systolic murmur; no gallop or rubs. PULM: + diffuse rhonchi. GI: SOFT, NT, ND, no rebound or guarding Extremity: trace B/L LE edema. no clubbing. neuro: awake and alert Psych: calm now. rectal: deferred : deferred Exam/Review of Systems Vital Signs Vitals Vital Signs Date Time Temp Pulse Resp B/P Pulse Ox O2 Delivery O2 Flow Rate FiO2 03/14/17 16:00 76 03/14/17 13:16 92 8.0 03/14/17 13:00 33 03/14/17 12:30 120/48 Mask 03/14/17 08:00 98.0 03/12/17 08:05 50 Intake and Output 03/13/17 03/13/17 03/14/17 15:00 23:00 07:00 Intake Total 307.98 ml 100 ml 105 ml Output Total 1490 ml 790 ml 210 ml Balance -1182.02 ml -690 ml -105 ml Results Result Diagram: 03/14/17 0415 03/14/17 0415 Results 24 hrs Laboratory Tests Test 03/13/17 17:18 03/13/17 20:41 03/14/17 01:25 03/14/17 04:15 Bedside Glucose 99 156 186 White Blood Count 8.9 Red Blood Count 3.26 L Hemoglobin 10.0 L Hematocrit 32.2 L Mean Corpuscular Volume 98.8 Mean Corpuscular Hemoglobin 30.7 Mean Corpuscular Hemoglobin Concent 31.1 L Red Cell Distribution Width 14.3 Platelet Count 391 Mean Platelet Volume 10.7 H Neutrophils % 70.2 Lymphocytes % 17.9 Monocytes % 8.9 Eosinophils % 1.9 Basophils % 0.6 Nucleated Red Blood Cells % 0.0 Neutrophils # 6.2 Lymphocytes # 1.6 Monocytes # 0.8 Eosinophils # 0.2 Basophils # 0.1 Nucleated Red Blood Cells # 0.0 Sodium Level 144 Potassium Level 3.7 Chloride Level 92 L Carbon Dioxide Level 39 H Anion Gap 17 H Blood Urea Nitrogen 15 Creatinine 0.80 Glucose Level 190 Calcium Level 9.0 Phosphorus Level 3.3 Magnesium Level 1.7 Test 03/14/17 05:56 03/14/17 09:40 03/14/17 12:24 03/14/17 16:36 Bedside Glucose 188 171 199 253 H Medications Medications Current Medications Acetaminophen (Tylenol Supp) 650 mg Q4H PRN MA PAIN LEVEL 1-3 OR FEVER; Start 03/02/17 at 00:30 Miscellaneous Information 1 ea NOTE XX ; Start 03/02/17 at 00:30 Glucose (Glutose) 15 gm Q15M PRN PO DECREASED GLUCOSE; Start 03/02/17 at 00:30 Glucose (Glutose) 22.5 gm Q15M PRN PO DECREASED GLUCOSE; Start 03/02/17 at 00: 30 Dextrose (D50w Syringe) 25 ml Q15M PRN IV DECREASED GLUCOSE; Start 03/02/17 at 00:30 Dextrose (D50w Syringe) 50 ml Q15M PRN IV DECREASED GLUCOSE; Start 03/02/17 at 00:30 Glucagon (Glucagen) 1 mg Q15M PRN IM DECREASED GLUCOSE; Start 03/02/17 at 00:30 Glucose (Glutose) 15 gm Q15M PRN BUCCAL DECREASED GLUCOSE; Start 03/02/17 at 00 :30 Pantoprazole (Protonix Iv) 40 mg BID@06,18 IV Last administered on 03/14/17 05 :56; Admin Dose 40 MG; Start 03/04/17 at 06:00 Insulin Aspart (Novolog Insulin Pen) NOVOLOG *MILD* ALGORI... Q4 SC Last administered on 03/14/17 16:49; Admin Dose 3 UNIT; Start 03/06/17 at 05:00 Aspirin (Halfprin) 81 mg DAILY PO ; Start 03/07/17 at 09:00 Atorvastatin Calcium (Lipitor) 40 mg QHS PO ; Start 03/06/17 at 21:00 Diclofenac Sodium (Voltaren) 75 mg DAILY PO ; Start 03/07/17 at 09:00 Donepezil HCl (Aricept) 5 mg QHS PO ; Start 03/06/17 at 21:00 Aspirin (Aspirin) 300 mg DAILY MA Last administered on 03/13/17 19:21; Admin Dose 300 MG; Start 03/09/17 at 09:00 Metoprolol Tartrate 25 mg 25 mg BID PO ; Start 03/09/17 at 09:00 Diltiazem HCl (Cardizem-D5W 125 Mg/125 ml Drip) 125 ml @ 5 mls/hr TITRATE IV Last administered on 03/14/17 06:51; Admin Dose 15 MLS/HR; Start 03/11/17 at 22 :30 Morphine Sulfate (morphine) 3 mg Q4H PRN IV PAIN LEVEL 6-10 Last administered on 03/14/17 13:06; Admin Dose 3 MG; Start 03/12/17 at 00:00 TYREE MCKOY MD Mar 14, 2017 17:09
[2017-03-15] VITALS (41 sets, daily range): BP systolic 90–145; BP diastolic 40–103; PULSE 70–85; RESP 11–34
[2017-03-15] MEDS: ATORVASTATIN 40 MG TAB PO SCH ×2 (01:57→20:45)
[2017-03-15] MEDS: INSULIN ASPART [NOVOLOG] 3 ML PEN SC SCH ×7 (01:59→20:52)
[2017-03-15] MEDS: DONEPEZIL 5 MG TAB PO SCH ×2 (02:01→20:45)
[2017-03-15] MEDS: METOPROLOL 25 MG TAB PO SCH ×3 (02:01→20:45)
[2017-03-15] MEDS: DILTIAZEM-D5W 125MG/125ML DRIP 125 ML IV SCH (03:35)
[2017-03-15 06:01] LABS: CALCIUM 9.3 mg/dl (8.4-10.2); CREATININE 0.85 mg/dl (0.44-1.00); POTASSIUM 3.6 mmol/L (3.5-5.1)
[2017-03-15] MEDS: PANTOPRAZOLE 40 MG INJ IV SCH (06:09)
[2017-03-15] MEDS: FUROSEMIDE 40 MG INJ IV SCH (06:10)
[2017-03-15] MEDS: DICLOFENAC (EC) 75 MG TAB PO SCH (08:36)
[2017-03-15] MEDS: ASPIRIN (EC) 81 MG TAB PO SCH (08:36)
--- NOTE | 2017-03-15 10:34 | CONS ---
Date/Time of Note Date/Time of Note DATE: 03/15/17 TIME: 10:33 Consult Date/Type/Reason Admit Date/Time Mar 01, 2017 at 20:20 Initial Consult Date 03/02/17 Type of Consultation: Pulmonary Ordering Provider: MICHELLE MORENO Subjective Awake alert comfortable mild confusion Objective Vital Signs Date Time Temp Pulse Resp B/P Pulse Ox O2 Delivery O2 Flow Rate FiO2 03/15/17 09:30 78 20 122/43 91 03/15/17 09:00 Nasal Cannula 5.0 03/15/17 08:00 98.6 03/12/17 08:05 50 Intake and Output 03/14/17 03/14/17 03/15/17 14:59 22:59 06:59 Intake Total 120 ml 570 ml 80 ml Output Total 482 ml 264 ml Balance 120 ml 88 ml -184 ml Exam PHYSICAL EXAMINATION GENERAL: Elderly lady facemask oxygen comfortable at rest this morning. VITAL SIGNS: see below. HEENT: Pupils equal, round, and reactive to light. CARDIAC: S1, S2, 1/6 systolic ejection murmur CHEST: Diminished air entry bilaterally. ABDOMEN: Mildly distended. Bowel sounds present no guarding or rebound EXTREMITIES: No cyanosis, clubbing edema +1 NEUROLOGIC: Generalized weakness Results/Medications Result Diagram: 03/14/17 0415 03/15/17 0500 Results 24 hrs Laboratory Tests Test 03/14/17 12:24 03/14/17 16:36 03/14/17 21:32 03/15/17 02:05 Bedside Glucose 199 253 H 203 198 Test 03/15/17 05:00 03/15/17 06:08 03/15/17 08:35 Sodium Level 146 H Potassium Level 3.6 Chloride Level 90 L Carbon Dioxide Level 44 *H Anion Gap 16 Blood Urea Nitrogen 17 Creatinine 0.85 Glucose Level 181 Calcium Level 9.3 Magnesium Level 1.7 Digoxin Level 0.5 L Bedside Glucose 186 177 Medications Current Medications Acetaminophen (Tylenol Supp) 650 mg Q4H PRN IN PAIN LEVEL 1-3 OR FEVER; Start 03/02/17 at 00:30 Miscellaneous Information 1 ea NOTE XX ; Start 03/02/17 at 00:30 Glucose (Glutose) 15 gm Q15M PRN PO DECREASED GLUCOSE; Start 03/02/17 at 00:30 Glucose (Glutose) 22.5 gm Q15M PRN PO DECREASED GLUCOSE; Start 03/02/17 at 00: 30 Dextrose (D50w Syringe) 25 ml Q15M PRN IV DECREASED GLUCOSE; Start 03/02/17 at 00:30 Dextrose (D50w Syringe) 50 ml Q15M PRN IV DECREASED GLUCOSE; Start 03/02/17 at 00:30 Glucagon (Glucagen) 1 mg Q15M PRN IM DECREASED GLUCOSE; Start 03/02/17 at 00:30 Glucose (Glutose) 15 gm Q15M PRN BUCCAL DECREASED GLUCOSE; Start 03/02/17 at 00 :30 Pantoprazole (Protonix Iv) 40 mg BID@06,18 IV Last administered on 03/15/17 06 :09; Admin Dose 40 MG; Start 03/04/17 at 06:00 Insulin Aspart (Novolog Insulin Pen) NOVOLOG *MILD* ALGORI... Q4 SC Last administered on 03/15/17 08:42; Admin Dose 1 UNIT; Start 03/06/17 at 05:00 Aspirin (Halfprin) 81 mg DAILY PO Last administered on 03/15/17 08:36; Admin Dose 81 MG; Start 03/07/17 at 09:00 Atorvastatin Calcium (Lipitor) 40 mg QHS PO Last administered on 03/15/17 01: 57; Admin Dose 40 MG; Start 03/06/17 at 21:00 Diclofenac Sodium (Voltaren) 75 mg DAILY PO Last administered on 03/15/17 08: 36; Admin Dose 75 MG; Start 03/07/17 at 09:00 Donepezil HCl (Aricept) 5 mg QHS PO Last administered on 03/15/17 02:01; Admin Dose 5 MG; Start 03/06/17 at 21:00 Metoprolol Tartrate 25 mg 25 mg BID PO Last administered on 03/15/17 08:36; Admin Dose 25 MG; Start 03/09/17 at 09:00 Diltiazem HCl (Cardizem-D5W 125 Mg/125 ml Drip) 125 ml @ 5 mls/hr TITRATE IV Last administered on 03/15/17 03:35; Admin Dose 10 MLS/HR; Start 03/11/17 at 22 :30 Morphine Sulfate (morphine) 3 mg Q4H PRN IV PAIN LEVEL 6-10 Last administered on 03/14/17t 13:06; Admin Dose 3 MG; Start 03/12/17 at 00:00 Assessment/Plan Chief Complaint/Hosp Course Assessment 1. Hypoxemic and hypercapnic respiratory failure likely secondary to community- acquired pneumonia now extubated from mechanical ventilation worsening hypoxemia likely secondary to pulmonary edema given last radiographic findings. 2. Atrial fibrillation with rapid ventricular rate likely exacerbated by hypoxemia and cardiac ischemia 3. 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 Status post septic shock secondary to above 4. Erosive gastritis on EGD findings. Nasogastric tube has been removed per GI recommendations 6. Delirium. Likely toxic metabolic. Plan 1. Continue diuretics 2. Broad-spectrum antibiotic coverage 3. Speech therapy evaluation advance diet as tolerated 4. Nasal cannula oxygen 5. Continue insulin as needed. 6. May require reintubation if fails diuretics and supplemental O2 7. Continue rate control per cardiology. P.o. medications if stable to swallow. 8. Encourage out of bed. Disposition critical care time 40 minutes discussed with primary team and nursing staff Consider transfer to telemetry. Problems: MARY ALY MD, [facility] Mar 15, 2017 10:34
--- NOTE | 2017-03-15 12:46 | CONS ---
Date/Time of Note Date/Time of Note DATE: 03/15/17 TIME: 12:32 Assessment/Plan Assessment/Plan Chief Complaint/Hosp Course ID PROGRESS NOTE TOTAL ABX DAY => OFF ABX DAY #5 * s/p 11 DAYS ABX: ZOSYN, Vanco IV, Diflucan 24H INTERVAL SUMMARY/HOSPITAL COURSE * Clinically stable, no fevers, WBC remains normalized * Awake, alert, follows commands, confused * Stable on supplemental O2 via FM PHYSICAL EXAMINATION: GENERAL: No fevers, VSS, NAD HEENT: Unremarkable NECK: Trach midline, supple CHEST: Rise symmetrical without dyspnea on supplemental O2 via DM CV: Radial pulse RRR, mild tachy on tele ABDOMEN: Soft, nondistended EXTREMITIES: Warm, dry, intact ID ASSESSMENT: 86 yo F s/PMHx dementia w/memory impairment admit with: 1. s/p Sepsis with shock and persistent leukocytosis==>on admission due to #2 = RESOLVED * No fevers, WBC normalizing, off pressors, tachycardia resolved 2. Community-acquired pneumonia vs suspect ASPIRATION PNA on admission = STABLE S/P 11 DAYS IV ABX * ASP PNA risk factors: Age, ?dementia, Esophagitis suspect GERD possible silent Aspiration syndrome 3. Acute hypoxic/hypercapnic respiratory failure => s/p oral intubation/ mechanical Vent => Stable on supplemental O2 via FM 4. s/p Upper GIB -> s/p EGD 03/04/17 revealed (+) Erosive esophagitis w/ Erosive fundal gastritis, related to NG tube trauma. Nodular gastritis * s/p empiric Diflucan for concern esophagitis * 03/04 PATHO REPORT: Gastric biopsy:-- Reactive gastropathy, mild, with focal early acute mucosal erosion.-- No Helicobacter organisms are identified in a Giemsa stain (positive control concurrently reviewed).-- There is no evidence of malignancy 5. Non-ST elevation LA in setting sepsis + GIB 6. Parosysmal Afib w/RVR => Amiodarone 7. HTN Heart Disease w/diastolic HF * 2D ECHO: Mild concentric LVH w/ EF ~55 %l Stage I diastolic dysfunction. 8. Diabetes (-) MRSA Nares screen INVASIVES: L-SubC TLC, FC ABX ALLERGY: KNDA CURRENT ABX: => OFF ABX DAY #5 s/p 11 DAYS ABX: ZOSYN, Vanco IV, Diflucan ID PLAN: * Continue to monitor the patient OFF ABX, with repeat MICRO PRN clinical indicators of recurrent sepsis * Aspiration precautions, follow speech Tx recommendations * ID will continue to monitor . Problems: Consultation Date/Type/Reason Admit Date/Time Mar 01, 2017 at 20:20 Initial Consult Date 03/04/17 Type of Consultation: ID Referring Provider: MICHELLE MORENO Exam/Review of Systems Vital Signs Vitals Vital Signs Date Time Temp Pulse Resp B/P Pulse Ox O2 Delivery O2 Flow Rate FiO2 03/15/17 09:30 78 20 122/43 91 03/15/17 09:00 Nasal Cannula 5.0 03/15/17 08:00 98.6 03/12/17 08:05 50 Intake and Output 03/14/17 03/14/17 03/15/17 15:00 23:00 07:00 Intake Total 120 ml 570 ml 65 ml Output Total 515 ml 231 ml Balance 120 ml 55 ml -166 ml Results Result Diagram: 03/14/17 0415 03/15/17 0500 Results 24 hrs Laboratory Tests Test 03/14/17 16:36 03/14/17 21:32 03/15/17 02:05 03/15/17 05:00 Bedside Glucose 253 H 203 198 Sodium Level 146 H Potassium Level 3.6 Chloride Level 90 L Carbon Dioxide Level 44 *H Anion Gap 16 Blood Urea Nitrogen 17 Creatinine 0.85 Glucose Level 181 Calcium Level 9.3 Magnesium Level 1.7 Digoxin Level 0.5 L Test 03/15/17 06:08 03/15/17 08:35 03/15/17 12:06 Bedside Glucose 186 177 252 H Medications Medications Current Medications Acetaminophen (Tylenol Supp) 650 mg Q4H PRN [place] PAIN LEVEL 1-3 OR FEVER; Start 03/02/17 at 00:30 Miscellaneous Information 1 ea NOTE XX ; Start 03/02/17 at 00:30 Glucose (Glutose) 15 gm Q15M PRN PO DECREASED GLUCOSE; Start 03/02/17 at 00:30 Glucose (Glutose) 22.5 gm Q15M PRN PO DECREASED GLUCOSE; Start 03/02/17 at 00: 30 Dextrose (D50w Syringe) 25 ml Q15M PRN IV DECREASED GLUCOSE; Start 03/02/17 at 00:30 Dextrose (D50w Syringe) 50 ml Q15M PRN IV DECREASED GLUCOSE; Start 03/02/17 at 00:30 Glucagon (Glucagen) 1 mg Q15M PRN IM DECREASED GLUCOSE; Start 03/02/17 at 00:30 Glucose (Glutose) 15 gm Q15M PRN BUCCAL DECREASED GLUCOSE; Start 03/02/17 at 00 :30 Pantoprazole (Protonix Iv) 40 mg BID@06,18 IV Last administered on 03/15/17 06 :09; Admin Dose 40 MG; Start 03/04/17 at 06:00 Insulin Aspart (Novolog Insulin Pen) NOVOLOG *MILD* ALGORI... Q4 SC Last administered on 03/15/17 12:09; Admin Dose 3 UNIT; Start 03/06/17 at 05:00 Aspirin (Halfprin) 81 mg DAILY PO Last administered on 03/15/17 08:36; Admin Dose 81 MG; Start 03/07/17 at 09:00 Atorvastatin Calcium (Lipitor) 40 mg QHS PO Last administered on 03/15/17 01: 57; Admin Dose 40 MG; Start 03/06/17 at 21:00 Diclofenac Sodium (Voltaren) 75 mg DAILY PO Last administered on 03/15/17 08: 36; Admin Dose 75 MG; Start 03/07/17 at 09:00 Donepezil HCl (Aricept) 5 mg QHS PO Last administered on 03/15/17 02:01; Admin Dose 5 MG; Start 03/06/17 at 21:00 Metoprolol Tartrate 25 mg 25 mg BID PO Last administered on 03/15/17 08:36; Admin Dose 25 MG; Start 03/09/17 at 09:00 Diltiazem HCl (Cardizem-D5W 125 Mg/125 ml Drip) 125 ml @ 5 mls/hr TITRATE IV Last administered on 03/15/17 03:35; Admin Dose 10 MLS/HR; Start 03/11/17 at 22 :30 Morphine Sulfate (morphine) 3 mg Q4H PRN IV PAIN LEVEL 6-10 Last administered on 03/14/17 13:06; Admin Dose 3 MG; Start 03/12/17 at 00:00 SUZY ISABEL NP Mar 15, 2017 12:45
--- NOTE | 2017-03-15 14:21 | PN ---
Date/Time of Note Date/Time of Note DATE: 03/15/17 TIME: 14:19 Assessment/Plan VTE Prophylaxis VTE Prophylaxis Intervention: other Lines/Catheters IV Catheter Type (from Nrs): Central Line Central line still needed: Yes Urinary Cath still in place: Yes Reason Cath still needed: other (indicate) Assessment/Plan Chief Complaint/Hosp Course 1. P afib/ flutter with RVR: 2. acute hypoxemic respiratory failure: extubated now but still very hypoxemic 3. + troponin: c.w NSTEMI due to demand ischemia due to above 4. DM and severely elevated glucose: controlled with insulin 5. dyslipidemia 6. pneumonia/ sepsis 7. s/p shock : appear to be related to sepsis: currently off of levophed 8. hx memory impairment 9. anemia and GI bleed: stable now 10. hypo K. cont ASA off of plavix due to above resume cardizem drip prn cont metoprolol now that pt is able to take po meds DM Control with insulin echo shows normal EF replace lytes including K and Mg prn. dec lasix qd only labs in AM Problems: Subjective 24 Hr Interval Summary Free Text/Dictation CARDIOLOGY FOLLOW UP NOTE/ critical care note d/w staff in ICU and rhythm was reviewed. pt has CONVERTED BACK TO AFLUTTER/ FIB but HR is stable now pt is EXTUBATED 03/08 no more bleeding is reported. she denies any chest pain to me but confused. pt has been less hypoxemic OBJECTIVE: General: no acute distress HEENT: NC/AT. pupils are constricted. round. NECK: NO JVD. no stridor. CV: irregularly irregular. systolic murmur; no gallop or rubs. PULM: + diffuse rhonchi. GI: SOFT, NT, ND, no rebound or guarding Extremity: trace B/L LE edema. no clubbing. neuro: awake and alert Psych: calm now. rectal: deferred : deferred Exam/Review of Systems Vital Signs Vitals Vital Signs Date Time Temp Pulse Resp B/P Pulse Ox O2 Delivery O2 Flow Rate FiO2 03/15/17 12:55 Venti Mask 03/15/17 12:00 10.0 03/15/17 12:00 74 17 117/54 93 03/15/17 08:00 98.6 03/12/17 08:05 50 Intake and Output 03/14/17 03/14/17 03/15/17 15:00 23:00 07:00 Intake Total 120 ml 570 ml 65 ml Output Total 515 ml 231 ml Balance 120 ml 55 ml -166 ml Results Result Diagram: 03/14/17 0415 03/15/17 0500 Results 24 hrs Laboratory Tests Test 03/14/17 16:36 03/14/17 21:32 03/15/17 02:05 03/15/17 05:00 Bedside Glucose 253 H 203 198 Sodium Level 146 H Potassium Level 3.6 Chloride Level 90 L Carbon Dioxide Level 44 *H Anion Gap 16 Blood Urea Nitrogen 17 Creatinine 0.85 Glucose Level 181 Calcium Level 9.3 Magnesium Level 1.7 Digoxin Level 0.5 L Test 03/15/17 06:08 03/15/17 08:35 03/15/17 12:06 Bedside Glucose 186 177 252 H Medications Medications Current Medications Acetaminophen (Tylenol Supp) 650 mg Q4H PRN RI PAIN LEVEL 1-3 OR FEVER; Start 03/02/17 at 00:30 Miscellaneous Information 1 ea NOTE XX ; Start 03/02/17 at 00:30 Glucose (Glutose) 15 gm Q15M PRN PO DECREASED GLUCOSE; Start 03/02/17 at 00:30 Glucose (Glutose) 22.5 gm Q15M PRN PO DECREASED GLUCOSE; Start 03/02/17 at 00: 30 Dextrose (D50w Syringe) 25 ml Q15M PRN IV DECREASED GLUCOSE; Start 03/02/17 at 00:30 Dextrose (D50w Syringe) 50 ml Q15M PRN IV DECREASED GLUCOSE; Start 03/02/17 at 00:30 Glucagon (Glucagen) 1 mg Q15M PRN IM DECREASED GLUCOSE; Start 03/02/17 at 00:30 Glucose (Glutose) 15 gm Q15M PRN BUCCAL DECREASED GLUCOSE; Start 03/02/17 at 00 :30 Pantoprazole (Protonix Iv) 40 mg BID@,18 IV Last administered on 03/15/17 06 :09; Admin Dose 40 MG; Start 03/04/17 at 06:00 Insulin Aspart (Novolog Insulin Pen) NOVOLOG *MILD* ALGORI... Q4 SC Last administered on 03/15/17 12:09; Admin Dose 3 UNIT; Start 03/06/17 at 05:00 Aspirin (Halfprin) 81 mg DAILY PO Last administered on 03/15/17 08:36; Admin Dose 81 MG; Start 03/07/17 at 09:00 Atorvastatin Calcium (Lipitor) 40 mg QHS PO Last administered on 03/15/17 01: 57; Admin Dose 40 MG; Start 03/06/17 at 21:00 Diclofenac Sodium (Voltaren) 75 mg DAILY PO Last administered on 03/15/17 08: 36; Admin Dose 75 MG; Start 03/07/17 at 09:00 Donepezil HCl (Aricept) 5 mg QHS PO Last administered on 03/15/17 02:01; Admin Dose 5 MG; Start 03/06/17 at 21:00 Metoprolol Tartrate 25 mg 25 mg BID PO Last administered on 03/15/17 08:36; Admin Dose 25 MG; Start 03/09/17 at 09:00 Diltiazem HCl (Cardizem-D5W 125 Mg/125 ml Drip) 125 ml @ 5 mls/hr TITRATE IV Last administered on 03/15/17 03:35; Admin Dose 10 MLS/HR; Start 03/11/17 at 22 :30 Morphine Sulfate (morphine) 3 mg Q4H PRN IV PAIN LEVEL 6-10 Last administered on 03/14/17 13:06; Admin Dose 3 MG; Start 03/12/17 at 00:00 TYREE MCKOY MD Mar 15, 2017 14:21
--- NOTE | 2017-03-15 14:24 | PN ---
Date/Time of Note Date/Time of Note DATE: 03/15/17 TIME: 14:23 Assessment/Plan VTE Prophylaxis VTE Prophylaxis Intervention: SCD's Lines/Catheters IV Catheter Type (from Nrsg): Central Line Central line still needed: No Urinary Cath still in place: Yes Reason Cath still needed: other (indicate) (will dc) Assessment/Plan Assessment/Plan 86 yo F with dementia admitted from facility for acute hypoxic respiratory failure and sepsis: likely 2/2 aspiration pneumonia. EXTUBATED 03/08. 1. acute hypoxic respiratory failure: 2/2 aspiration pna, now extubated. f/u pulmonology recs, duoneb's prn;sp abx 2. Severe sepsis: from aspiration pna, ID following. Likely secondary to respiratory infection. sp abx 3. Tachycardia: afib with RVR vs sinus tach (fluctuates) -cont bb. of note, not on ATC 4. suspected fungal esophagitis: sp antifungal 5. diabetes mellitus: Continue insulin sliding scale. resume basal insulin once pt taking PO again 6. History of essential hypertension: ARB on hold 7. Questionable GI bleed: sp EGD 7.15 , +gastritis - f/u GI rec's, convert PPI to PO - avoid NG tube for now unless absolutely necessary - ST following 8. DVT and GI prophylaxis: SCDs, Protonix 9. hyperthyroid - 7.13 labs notable for hyperthyroid (TSH low, t4 high)--> consider post discharge fu with PCP 10. hypernatremia - resolved Code status: unfortunately pt with dementia and no advanced directive or family. Given aspiration most likely 2/2 dementia for which there is no cure, suspect aspiration will occur again. Appreciate palliative team consult, they are [place] to [place]. May need to schedule bioethics mtg in next few days as well if family cannot be contacted. full code at this time transfer to tele ARU cs placed critical care time: 30minutes Subjective 24 Hr Interval Summary Free Text/Dictation Pt doing better today. talkative, awake, joking around in Latvian Exam/Review of Systems Vital Signs Vitals Vital Signs Date Time Temp Pulse Resp B/P Pulse Ox O2 Delivery O2 Flow Rate FiO2 03/15/17 12:55 Venti Mask 03/15/17 12:00 10.0 03/15/17 12:00 74 17 117/54 93 03/15/17 08:00 98.6 03/12/17 08:05 50 Intake and Output 03/14/17 03/14/17 03/15/17 15:00 23:00 07:00 Intake Total 120 ml 570 ml 65 ml Output Total 515 ml 231 ml Balance 120 ml 55 ml -166 ml Exam nad no mrg lungs clear anteriorly abd soft no rashes Results Result Diagram: 03/14/17 0415 03/15/17 0500 Results 24 hrs Laboratory Tests Test 03/14/17 16:36 03/14/17 21:32 03/15/17 02:05 03/15/17 05:00 Bedside Glucose 253 H 203 198 Sodium Level 146 H Potassium Level 3.6 Chloride Level 90 L Carbon Dioxide Level 44 *H Anion Gap 16 Blood Urea Nitrogen 17 Creatinine 0.85 Glucose Level 181 Calcium Level 9.3 Magnesium Level 1.7 Digoxin Level 0.5 L Test 03/15/17 06:08 03/15/17 08:35 03/15/17 12:06 Bedside Glucose 186 177 252 H Medications Medications Current Medications Acetaminophen (Tylenol Supp) 650 mg Q4H PRN [place] PAIN LEVEL 1-3 OR FEVER; Start 03/02/17 at 00:30 Miscellaneous Information 1 ea NOTE XX ; Start 03/02/17 at 00:30 Glucose (Glutose) 15 gm Q15M PRN PO DECREASED GLUCOSE; Start 03/02/17 at 00:30 Glucose (Glutose) 22.5 gm Q15M PRN PO DECREASED GLUCOSE; Start 03/02/17 at 00: 30 Dextrose (D50w Syringe) 25 ml Q15M PRN IV DECREASED GLUCOSE; Start 03/02/17 at 00:30 Dextrose (D50w Syringe) 50 ml Q15M PRN IV DECREASED GLUCOSE; Start 03/02/17 at 00:30 Glucagon (Glucagen) 1 mg Q15M PRN IM DECREASED GLUCOSE; Start 03/02/17 at 00:30 Glucose (Glutose) 15 gm Q15M PRN BUCCAL DECREASED GLUCOSE; Start 03/02/17 at 00 :30 Pantoprazole (Protonix Iv) 40 mg BID@06,18 IV Last administered on 03/15/17t 06 :09; Admin Dose 40 MG; Start 03/04/17 at 06:00 Insulin Aspart (Novolog Insulin Pen) NOVOLOG *MILD* ALGORI... Q4 SC Last administered on 03/15/17 12:09; Admin Dose 3 UNIT; Start 03/06/17 at 05:00 Aspirin (Halfprin) 81 mg DAILY PO Last administered on 03/15/17 08:36; Admin Dose 81 MG; Start 03/07/17 at 09:00 Atorvastatin Calcium (Lipitor) 40 mg QHS PO Last administered on 03/15/17 01: 57; Admin Dose 40 MG; Start 03/06/17 at 21:00 Diclofenac Sodium (Voltaren) 75 mg DAILY PO Last administered on 03/15/17 08: 36; Admin Dose 75 MG; Start 03/07/17 at 09:00 Donepezil HCl (Aricept) 5 mg QHS PO Last administered on 03/15/17 02:01; Admin Dose 5 MG; Start 03/06/17 at 21:00 Metoprolol Tartrate 25 mg 25 mg BID PO Last administered on 03/15/17 08:36; Admin Dose 25 MG; Start 03/09/17 at 09:00 Diltiazem HCl (Cardizem-D5W 125 Mg/125 ml Drip) 125 ml @ 5 mls/hr TITRATE IV Last administered on 03/15/17 03:35; Admin Dose 10 MLS/HR; Start 03/11/17 at 22 :30 Morphine Sulfate (morphine) 3 mg Q4H PRN IV PAIN LEVEL 6-10 Last administered on 03/14/17 13:06; Admin Dose 3 MG; Start 03/12/17 at 00:00 Furosemide (Lasix) 40 mg DAILY IV ; Start 03/16/17 at 09:00; Status UNV Potassium Chloride 40 meq 40 meq DAILY PO ; Start 03/15/17 at 14:30; Stop at 14:29; Status UNV Magnesium Sulfate (Magnesium Sulfate 4 Gm/100 ml) 100 ml @ 25 mls/hr ONCE ONCE IVPB ; Start 03/15/17 at 14:30; Stop 03/15/17 at 18:29; Status UNV NICK BROWN MD Mar 15, 2017 14:24
[2017-03-15] MEDS ORDERED: ACETAMINOPHEN 325 MG TAB PO PRN (14:30)
[2017-03-15] MEDS: POTASSIUM CHLORIDE (SR) 20 MEQ TAB PO SCH (14:34)
[2017-03-15] MEDS ORDERED: BISACODYL (EC) 5 MG TAB PO ONE (15:00)
--- NOTE | 2017-03-15 15:07 | CONS ---
Date/Time of Note Date/Time of Note DATE: 03/15/17 TIME: 15:05 Assessment/Plan Assessment/Plan Chief Complaint/Hosp Course This is an 86-year-old female who was in the intensive care unit after she presented to [facility] with respiratory failure, she is intubated. Patient also has severe sepsis history of diabetes hypertension fluid and electrolyte abnormalities and mental status changes. By history patient's family lives in [place] she only has a caregiver living with her here. I'm access with ongoing level of care based more on communication with family members. It is my understanding that case management has a phone number to family members that is available in patient's medical records. Problems: Consultation Date/Type/Reason Admit Date/Time Mar 01, 2017 at 20:20 Initial Consult Date 03/08/17 Type of Consultation: Pallaianup Referring Provider: MICHELLE MORENO 24 HR Interval Summary Free Text/Dictation We have had no success win contacting family . Pt has bee referred to [facility] at least to obtain a code change. Subjective hx not possible: pt critical status Exam/Review of Systems Vital Signs Vitals Vital Signs Date Time Temp Pulse Resp B/P Pulse Ox O2 Delivery O2 Flow Rate FiO2 03/15/17 12:55 Venti Mask 03/15/17 12:00 10.0 03/15/17 12:00 74 17 117/54 93 03/15/17 08:00 98.6 03/12/17 08:05 50 Intake and Output 03/14/17 03/14/17 03/15/17 15:00 23:00 07:00 Intake Total 120 ml 570 ml 70 ml Output Total 515 ml 231 ml Balance 120 ml 55 ml -161 ml Exam Respiratory: congested cough, crackles/rales Cardiovascular: nl pulses, regular rate and rhythm Results Result Diagram: 03/14/17 0415 03/15/17 0500 Results 24 hrs Laboratory Tests Test 03/14/17 16:36 03/14/17 21:32 03/15/17 02:05 03/15/17 05:00 Bedside Glucose 253 H 203 198 Sodium Level 146 H Potassium Level 3.6 Chloride Level 90 L Carbon Dioxide Level 44 *H Anion Gap 16 Blood Urea Nitrogen 17 Creatinine 0.85 Glucose Level 181 Calcium Level 9.3 Magnesium Level 1.7 Digoxin Level 0.5 L Test 03/15/17 06:08 03/15/17 08:35 03/15/17 12:06 Bedside Glucose 186 177 252 H Medications Medications Current Medications Miscellaneous Information 1 ea NOTE XX ; Start 03/02/17 at 00:30 Glucose (Glutose) 15 gm Q15M PRN PO DECREASED GLUCOSE; Start 03/02/17 at 00:30 Glucose (Glutose) 22.5 gm Q15M PRN PO DECREASED GLUCOSE; Start 03/02/17 at 00: 30 Dextrose (D50w Syringe) 25 ml Q15M PRN IV DECREASED GLUCOSE; Start 03/02/17 at 00:30 Dextrose (D50w Syringe) 50 ml Q15M PRN IV DECREASED GLUCOSE; Start 03/02/17 at 00:30 Glucagon (Glucagen) 1 mg Q15M PRN IM DECREASED GLUCOSE; Start 03/02/17 at 00:30 Glucose (Glutose) 15 gm Q15M PRN BUCCAL DECREASED GLUCOSE; Start 03/02/17 at 00 :30 Insulin Aspart (Novolog Insulin Pen) NOVOLOG *MILD* ALGORI... Q4 SC Last administered on 03/15/17 12:09; Admin Dose 3 UNIT; Start 03/06/17 at 05:00 Aspirin (Halfprin) 81 mg DAILY PO Last administered on 03/15/17 08:36; Admin Dose 81 MG; Start 03/07/17 at 09:00 Atorvastatin Calcium (Lipitor) 40 mg QHS PO Last administered on 03/15/17 01: 57; Admin Dose 40 MG; Start 03/06/17 at 21:00 Diclofenac Sodium (Voltaren) 75 mg DAILY PO Last administered on 03/15/17 08: 36; Admin Dose 75 MG; Start 03/07/17 at 09:00 Donepezil HCl (Aricept) 5 mg QHS PO Last administered on 03/15/17 02:01; Admin Dose 5 MG; Start 03/06/17 at 21:00 Metoprolol Tartrate 25 mg 25 mg BID PO Last administered on 03/15/17 08:36; Admin Dose 25 MG; Start 03/09/17 at 09:00 Diltiazem HCl (Cardizem-D5W 125 Mg/125 ml Drip) 125 ml @ 5 mls/hr TITRATE IV Last administered on 03/15/17 03:35; Admin Dose 10 MLS/HR; Start 03/11/17 at 22 :30 Morphine Sulfate (morphine) 3 mg Q4H PRN IV PAIN LEVEL 6-10 Last administered on 03/14/17 13:06; Admin Dose 3 MG; Start 03/12/17 at 00:00 Furosemide (Lasix) 40 mg DAILY IV ; Start 03/16/17 at 09:00 Potassium Chloride 40 meq 40 meq DAILY PO Last administered on 03/15/17 14:34 ; Admin Dose 40 MEQ; Start 03/15/17 at 14:30; Stop 03/18/17 at 14:29 Magnesium Sulfate (Magnesium Sulfate 4 Gm/100 ml) 100 ml @ 25 mls/hr ONCE ONCE IVPB ; Start 03/15/17 at 15:30; Stop 03/15/17 at 19:29 Acetaminophen (Tylenol Tab) 325 mg Q4H PRN PO PAIN AND OR ELEVATED TEMP; Start 03/15/17 at 14:30 Pantoprazole (Protonix Tab) 40 mg BID@06,18 PO ; Start 03/15/17 at 18:00 CARY WALTER Mar 15, 2017 15:07
--- NOTE | 2017-03-15 15:09 | CONS ---
Date/Time of Note Date/Time of Note DATE: 03/15/17 TIME: 15:08 Assessment/Plan Assessment/Plan Chief Complaint/Hosp Course This is an 86-year-old female who was in the intensive care unit after she presented to [facility] with respiratory failure, she is intubated. Patient also has severe sepsis history of diabetes hypertension fluid and electrolyte abnormalities and mental status changes. By history patient's family lives in [place] she only has a caregiver living with her here. I'm access with ongoing level of care based more on communication with family members. It is my understanding that case management has a phone number to family members that is available in patient's medical records. Problems: Additional Assessment/Plan No success in cotacting family members .... referred to [facility] for code change Consultation Date/Type/Reason Admit Date/Time Mar 01, 2017 at 20:20 Initial Consult Date 03/08/17 Type of Consultation: Pallaitive Referring Provider: MICHELLE MORENO 24 HR Interval Summary Subjective hx not possible: pt non-verbal Exam/Review of Systems Vital Signs Vitals Vital Signs Date Time Temp Pulse Resp B/P Pulse Ox O2 Delivery O2 Flow Rate FiO2 03/15/17 12:55 Venti Mask 03/15/17 12:00 10.0 03/15/17 12:00 74 17 117/54 93 03/15/17 08:00 98.6 03/12/17 08:05 50 Intake and Output 03/14/17 03/14/17 03/15/17 15:00 23:00 07:00 Intake Total 120 ml 570 ml 70 ml Output Total 515 ml 231 ml Balance 120 ml 55 ml -161 ml Results Result Diagram: 03/14/17 0415 03/15/17 0500 Results 24 hrs Laboratory Tests Test 03/14/17 16:36 03/14/17 21:32 03/15/17 02:05 03/15/17 05:00 Bedside Glucose 253 H 203 198 Sodium Level 146 H Potassium Level 3.6 Chloride Level 90 L Carbon Dioxide Level 44 *H Anion Gap 16 Blood Urea Nitrogen 17 Creatinine 0.85 Glucose Level 181 Calcium Level 9.3 Magnesium Level 1.7 Digoxin Level 0.5 L Test 03/15/17 06:08 03/15/17 08:35 03/15/17 12:06 Bedside Glucose 186 177 252 H Medications Medications Current Medications Miscellaneous Information 1 ea NOTE XX ; Start 03/02/17 at 00:30 Glucose (Glutose) 15 gm Q15M PRN PO DECREASED GLUCOSE; Start 03/02/17 at 00:30 Glucose (Glutose) 22.5 gm Q15M PRN PO DECREASED GLUCOSE; Start 03/02/17 at 00: 30 Dextrose (D50w Syringe) 25 ml Q15M PRN IV DECREASED GLUCOSE; Start 03/02/17 at 00:30 Dextrose (D50w Syringe) 50 ml Q15M PRN IV DECREASED GLUCOSE; Start 03/02/17 at 00:30 Glucagon (Glucagen) 1 mg Q15M PRN IM DECREASED GLUCOSE; Start 03/02/17 at 00:30 Glucose (Glutose) 15 gm Q15M PRN BUCCAL DECREASED GLUCOSE; Start 03/02/17 at 00 :30 Insulin Aspart (Novolog Insulin Pen) NOVOLOG *MILD* ALGORI... Q4 SC Last administered on 03/15/17 12:09; Admin Dose 3 UNIT; Start 03/06/17 at 05:00 Aspirin (Halfprin) 81 mg DAILY PO Last administered on 03/15/17 08:36; Admin Dose 81 MG; Start 03/07/17 at 09:00 Atorvastatin Calcium (Lipitor) 40 mg QHS PO Last administered on 03/15/17 01: 57; Admin Dose 40 MG; Start 03/06/17 at 21:00 Diclofenac Sodium (Voltaren) 75 mg DAILY PO Last administered on 03/15/17 08: 36; Admin Dose 75 MG; Start 03/07/17 at 09:00 Donepezil HCl (Aricept) 5 mg QHS PO Last administered on 03/15/17 02:01; Admin Dose 5 MG; Start 03/06/17 at 21:00 Metoprolol Tartrate 25 mg 25 mg BID PO Last administered on 03/15/17 08:36; Admin Dose 25 MG; Start 03/09/17 at 09:00 Diltiazem HCl (Cardizem-D5W 125 Mg/125 ml Drip) 125 ml @ 5 mls/hr TITRATE IV Last administered on 03/15/17 03:35; Admin Dose 10 MLS/HR; Start 03/11/17 at 22 :30 Morphine Sulfate (morphine) 3 mg Q4H PRN IV PAIN LEVEL 6-10 Last administered on 03/14/17 13:06; Admin Dose 3 MG; Start 03/12/17 at 00:00 Furosemide (Lasix) 40 mg DAILY IV ; Start 03/16/17 at 09:00 Potassium Chloride 40 meq 40 meq DAILY PO Last administered on 03/15/17 14:34 ; Admin Dose 40 MEQ; Start 03/15/17 at 14:30; Stop 03/18/17 at 14:29 Magnesium Sulfate (Magnesium Sulfate 4 Gm/100 ml) 100 ml @ 25 mls/hr ONCE ONCE IVPB ; Start 03/15/17 at 15:30; Stop 03/15/17 at 19:29 Acetaminophen (Tylenol Tab) 325 mg Q4H PRN PO PAIN AND OR ELEVATED TEMP; Start 03/15/17 at 14:30 Pantoprazole (Protonix Tab) 40 mg BID@06,18 PO ; Start 03/15/17 at 18:00 CARY WALTER Mar 15, 2017 15:09
[2017-03-15] MEDS ORDERED: MAGNESIUM SULFATE 4 GM/100 ML 100 ML IVPB ONE (15:30)
--- NOTE | 2017-03-15 16:30 | CONS ---
Date/Time of Note Date/Time of Note DATE: 03/15/17 TIME: 15:03 Assessment/Plan Assessment/Plan Chief Complaint/Hosp Course This is an 86-year-old female who was in the intensive care unit after she presented to [facility] with respiratory failure, she is intubated. Patient also has severe sepsis history of diabetes hypertension fluid and electrolyte abnormalities and mental status changes. By history patient's family lives in [place] she only has a caregiver living with her here. I'm access with ongoing level of care based more on communication with family members. It is my understanding that case management has a phone number to family members that is available in patient's medical records. Problems: Additional Assessment/Plan Mental status change Other comorbid medical conditions and not acute Neurological workup unchanged Metabolic workup within normal limits I do not believe that there is any indication to addressed his CODE STATUS, but leave that to the bioethics committee at [facility] and his primary care physician. Consultation Date/Type/Reason Admit Date/Time Mar 01, 2017 at 20:20 Initial Consult Date 03/08/17 Type of Consultation: Palliative care Referring Provider: MICHELLE MORENO 24 HR Interval Summary Free Text/Dictation This is an 86-year-old gentleman that I had seen first on March 12 when he was admitted altered. There is no documentation that patient was critically ill upon transfer, vital signs were stable to the best my knowledge no labs were drawn. At that time I reviewed his medical record did not find that patient had a change in his cognitive ability as compared to at the [facility] unit. His initial workup was unremarkable. Exam/Review of Systems Vital Signs Vitals Vital Signs Date Time Temp Pulse Resp B/P Pulse Ox O2 Delivery O2 Flow Rate FiO2 03/15/17 12:55 Venti Mask 03/15/17 12:00 10.0 03/15/17 12:00 74 17 117/54 93 03/15/17 08:00 98.6 03/12/17 08:05 50 Intake and Output 03/14/17 03/14/17 03/15/17 14:59 22:59 06:59 Intake Total 120 ml 570 ml 80 ml Output Total 482 ml 264 ml Balance 120 ml 88 ml -184 ml Exam Constitutional: non-verbal Psych: other (No response to any verbal or tactile stimulation stares into space) Head: atraumatic, normocephalic Neck: non-tender, supple Respiratory: clear to auscultation, diminished breath sounds, normal air movement Cardiovascular: nl pulses, regular rate and rhythm Neurological: lethargic, other (Does not track, does not respond to simple commands, stares into space, cranial nerves grossly intact does not do any spontaneous movement) Results Result Diagram: 03/14/17 0200 03/15/17 0500 Results 24 hrs Laboratory Tests Test 03/14/17 16:36 03/14/17 21:32 03/15/17 02:05 03/15/17 05:00 Bedside Glucose 253 H 203 198 Sodium Level 146 H Potassium Level 3.6 Chloride Level 90 L Carbon Dioxide Level 44 *H Anion Gap 16 Blood Urea Nitrogen 17 Creatinine 0.85 Glucose Level 181 Calcium Level 9.3 Magnesium Level 1.7 Digoxin Level 0.5 L Test 03/15/17 06:08 03/15/17 08:35 03/15/17 12:06 Bedside Glucose 186 177 252 H Medications Medications Current Medications Miscellaneous Information 1 ea NOTE XX ; Start 03/02/17 at 00:30 Glucose (Glutose) 15 gm Q15M PRN PO DECREASED GLUCOSE; Start 03/02/17 at 00:30 Glucose (Glutose) 22.5 gm Q15M PRN PO DECREASED GLUCOSE; Start 03/02/17 at 00: 30 Dextrose (D50w Syringe) 25 ml Q15M PRN IV DECREASED GLUCOSE; Start 03/02/17 at 00:30 Dextrose (D50w Syringe) 50 ml Q15M PRN IV DECREASED GLUCOSE; Start 03/02/17 at 00:30 Glucagon (Glucagen) 1 mg Q15M PRN IM DECREASED GLUCOSE; Start 03/02/17 at 00:30 Glucose (Glutose) 15 gm Q15M PRN BUCCAL DECREASED GLUCOSE; Start 03/02/17 at 00 :30 Insulin Aspart (Novolog Insulin Pen) NOVOLOG *MILD* ALGORI... Q4 SC Last administered on 03/15/17 12:09; Admin Dose 3 UNIT; Start 03/06/17 at 05:00 Aspirin (Halfprin) 81 mg DAILY PO Last administered on 03/15/17 08:36; Admin Dose 81 MG; Start 03/07/17 at 09:00 Atorvastatin Calcium (Lipitor) 40 mg QHS PO Last administered on 03/15/17 01: 57; Admin Dose 40 MG; Start 03/06/17 at 21:00 Diclofenac Sodium (Voltaren) 75 mg DAILY PO Last administered on 03/15/17 08: 36; Admin Dose 75 MG; Start 03/07/17 at 09:00 Donepezil HCl (Aricept) 5 mg QHS PO Last administered on 03/15/17 02:01; Admin Dose 5 MG; Start 03/06/17 at 21:00 Metoprolol Tartrate 25 mg 25 mg BID PO Last administered on 03/15/17 08:36; Admin Dose 25 MG; Start 03/09/17 at 09:00 Diltiazem HCl (Cardizem-D5W 125 Mg/125 ml Drip) 125 ml @ 5 mls/hr TITRATE IV Last administered on 03/15/17 03:35; Admin Dose 10 MLS/HR; Start 03/11/17 at 22 :30 Morphine Sulfate (morphine) 3 mg Q4H PRN IV PAIN LEVEL 6-10 Last administered on 03/14/17 13:06; Admin Dose 3 MG; Start 03/12/17 at 00:00 Furosemide (Lasix) 40 mg DAILY IV ; Start 03/16/17 at 09:00 Potassium Chloride 40 meq 40 meq DAILY PO Last administered on 03/15/17 14:34 ; Admin Dose 40 MEQ; Start 03/15/17 at 14:30; Stop 03/18/17 at 14:29 Magnesium Sulfate (Magnesium Sulfate 4 Gm/100 ml) 100 ml @ 25 mls/hr ONCE ONCE IVPB ; Start 03/15/17 at 15:30; Stop 03/15/17 at 19:29 Acetaminophen (Tylenol Tab) 325 mg Q4H PRN PO PAIN AND OR ELEVATED TEMP; Start 03/15/17 at 14:30 Pantoprazole (Protonix Tab) 40 mg BID@06,18 PO ; Start 03/15/17 at 18:00 CARY WALTER Mar 15, 2017 16:30
[2017-03-15] MEDS: PANTOPRAZOLE (EC) 40 MG TAB PO SCH (17:48)
[2017-03-15] MEDS: INSULIN GLARGINE [LANtus] 3 ML PEN SC SCH (20:50)
[2017-03-16] VITALS (24 sets, daily range): BP systolic 100–151; BP diastolic 39–58; PULSE 60–86; RESP 11–35
[2017-03-16] MEDS: INSULIN ASPART [NOVOLOG] 3 ML PEN SC SCH ×6 (00:43→20:31)
[2017-03-16 05:24] LABS: BASOPHILS % 0.5 % (0.0-2.0); EOSINOPHILS # 0.3 10^3/ul (0.0-0.5); EOSINOPHILS % 3.1 % (0.0-7.0); HEMATOCRIT 30.2 % (37.0-47.0); HEMOGLOBIN 9.3 g/dl (12.0-16.0); LYMPHOCYTES # 1.3 10^3/ul (0.8-2.9); LYMPHOCYTES % 16.3 % (15.0-51.0); MEAN CORPUSCULAR HEMOGLOBIN 30.4 pg (29.0-33.0); MEAN CORPUSCULAR HGB CONC 30.8 g/dl (32.0-37.0); MEAN CORPUSCULAR VOLUME 98.7 fl (82.0-101.0); MEAN PLATELET VOLUME 10.5 fl (7.4-10.4); MONOCYTE # 0.8 10^3/ul (0.3-0.9); MONOCYTES % 9.2 % (0.0-11.0); NEUTROPHIL # 5.8 10^3/ul (1.6-7.5); NEUTROPHILS % 70.4 % (39.0-77.0); PLATELET COUNT 315 10^3/UL (140-415); RED BLOOD COUNT 3.06 10^6/ul (4.20-5.40); WHITE BLOOD COUNT 8.2 10^3/ul (4.8-10.8)
[2017-03-16 05:43] LABS: ALBUMIN 3.4 g/dl (3.3-4.9); ALBUMIN/GLOBULIN RATIO 0.91; BILIRUBIN,INDIRECT 0.2 mg/dl (0-1.1); BILIRUBIN,TOTAL 0.2 mg/dl (0.2-1.3); CALCIUM 9.3 mg/dl (8.4-10.2); CREATININE 0.9 mg/dl (0.44-1.00); POTASSIUM 3.9 mmol/L (3.5-5.1); TOTAL PROTEIN 7.1 g/dl (6.1-8.1)
[2017-03-16] MEDS: PANTOPRAZOLE (EC) 40 MG TAB PO SCH ×2 (05:51→17:16)
[2017-03-16 06:05] LABS: MAGNESIUM 2.3 mg/dl (1.7-2.5); PHOSPHORUS 3.1 mg/dl (2.5-4.9)
--- NOTE | 2017-03-16 06:14 | CONS ---
DATE OF ADMISSION: 03/01/2017 DATE OF CONSULTATION: 03/02/2017 REASON FOR CONSULTATION: Antibiotic management. HISTORY OF PRESENT ILLNESS: Laurie Carroll is an 86-year-old female who was admitted on 03/01/2017, and is currently in the intensive care unit. She presented to the emergency room with shortness of breath and a cough productive of yellow sputum. Her symptoms were of 2 days' duration. She denied any fever but was short of breath as noted. Her past problems include: 1. Hypertension. 2. Hyperlipidemia. 3. Adult-onset diabetes mellitus. Acutely the patient needed urgent intubation. She acutely decompensated. Patient had a white count of 18,000, H and H of 12.4 and 39.8, platelet count of 279,000. BUN and creatinine 32/1.13, glucose random of 315,000. Patient was started on vancomycin and Zosyn. Urine culture was negative. Chest x-ray showed chronic mild interstitial prominence in both lungs, calcified granuloma in the right upper lobe. A CT scan of the chest showed no evidence of pulmonary emboli. She has atherosclerosis, ulcerative plaque in the descending thoracic aorta, tree-in-bud opacities in the right lower lobe and right middle lobe consistent with infectious inflammatory bronchiolitis; peribronchial thickening in bilateral lower lobes, which could be secondary to bronchitis and mild cylindrical bronchiectasis, small hiatal hernia is apparent, appearance of nonspecific mild diffuse esophageal wall thickening in the mid-to- lower thoracic esophagus which could be secondary to esophagitis. Her white count today went up to 23.9. Her troponin went to 0.985, which is high. Her glucose is way out of control and was in the 400s. Her lactic acid went up to 6.1. Urine was negative for nitrite and leukocyte esterase and she is currently afebrile. PHYSICAL EXAMINATION: SKIN: Without generalized rash. HEENT: Within normal limits. NECK: Supple. Lymph nodes nonpalpable. LINES: She has an ET-tube, an NG-tube, Peirce catheter and central line. LUNGS: Decreased breath sounds at the bases. CARDIAC: Without murmur or gallop. ABDOMEN: Soft, nontender without organosplenomegaly or masses. EXTREMITIES: Without cyanosis, clubbing or edema. RECTAL AND GENITAL: Exams deferred. NEUROLOGIC: Patient is sedated and intubated on a respirator. IMPRESSION/PLAN: Laurie Carroll is an 86-year-old female who comes in now with sepsis. She has acute respiratory failure. She has bronchiolitis versus bronchiectasis and is on vancomycin and Zosyn. We will continue her on current therapy. I will dictate my findings to the hospitalist and to Dr. Diallo and Dr. Oconnor. Dictated By: Joe Amaya MD JD/maurilio/ace /Document#: [id number]
--- NOTE | 2017-03-16 07:39 | PN ---
Date/Time of Note Date/Time of Note DATE: 03/16/17 TIME: 07:36 Assessment/Plan VTE Prophylaxis VTE Prophylaxis Intervention: other Lines/Catheters IV Catheter Type (from Nrs): Peripheral IV Urinary Cath still in place: Yes Reason Cath still needed: other (indicate) Assessment/Plan Chief Complaint/Hosp Course 1. P afib/ flutter with RVR: 2. acute hypoxemic respiratory failure: extubated now but still very hypoxemic 3. + troponin: c.w NSTEMI due to demand ischemia due to above 4. DM and severely elevated glucose: controlled with insulin 5. dyslipidemia 6. pneumonia/ sepsis 7. s/p shock : appear to be related to sepsis: currently off of levophed 8. hx memory impairment 9. anemia and GI bleed: stable now 10. hypo K. cont ASA. CONSIDER ADDING ELIQUIS 2.5 BID if ok with GI. off of plavix due to above cardizem drip prn INC METOPROLOL DM Control with insulin echo shows normal EF replace lytes including K and Mg prn. STOP LASIX now and will give diamox for next 2 days. labs in AM Problems: Subjective 24 Hr Interval Summary Free Text/Dictation CARDIOLOGY FOLLOW UP NOTE/ critical care note d/w staff in ICU and rhythm was reviewed. pt has remained in AFLUTTER/ FIB but HR is stable now pt is EXTUBATED 03/08 no more bleeding is reported. she denies any chest pain to me but confused. pt has been less hypoxemic but still requires high flow O2 still confused. OBJECTIVE: General: no acute distress HEENT: NC/AT. pupils are constricted. round. NECK: NO JVD. no stridor. CV: irregularly irregular. systolic murmur; no gallop or rubs. PULM: + diffuse rhonchi. GI: SOFT, NT, ND, no rebound or guarding Extremity: trace B/L LE edema. no clubbing. neuro: awake and alert Psych: calm now. rectal: deferred : deferred Exam/Review of Systems Vital Signs Vitals Vital Signs Date Time Temp Pulse Resp B/P Pulse Ox O2 Delivery O2 Flow Rate FiO2 03/16/17 06:00 77 16 143/51 99 03/16/17 05:56 50 03/16/17 05:00 97.9 03/16/17 04:00 High Flow 03/15/17 12:00 10.0 Intake and Output 03/15/17 03/15/17 03/16/17 15:00 23:00 07:00 Intake Total 205 ml 100 ml Output Total 450 ml 350 ml 400 ml Balance -245 ml -250 ml -400 ml Results Result Diagram: 03/16/17 0455 03/16/17 0455 Results 24 hrs Laboratory Tests Test 03/15/17 08:35 03/15/17 12:06 03/15/17 16:16 03/15/17 19:55 Bedside Glucose 177 252 H 315 H 340 H Test 03/15/17 23:53 03/16/17 03:55 03/16/17 04:55 Bedside Glucose 244 H 169 White Blood Count 8.2 Red Blood Count 3.06 L Hemoglobin 9.3 L Hematocrit 30.2 L Mean Corpuscular Volume 98.7 Mean Corpuscular Hemoglobin 30.4 Mean Corpuscular Hemoglobin Concent 30.8 L Red Cell Distribution Width 15.0 H Platelet Count 315 Mean Platelet Volume 10.5 H Neutrophils % 70.4 Lymphocytes % 16.3 Monocytes % 9.2 Eosinophils % 3.1 Basophils % 0.5 Nucleated Red Blood Cells % 0.0 Neutrophils # 5.8 Lymphocytes # 1.3 Monocytes # 0.8 Eosinophils # 0.3 Basophils # 0.0 Nucleated Red Blood Cells # 0.0 Sodium Level 146 H Potassium Level 3.9 Chloride Level 90 L Carbon Dioxide Level 47 *H Anion Gap 13 Blood Urea Nitrogen 21 H Creatinine 0.90 Glucose Level 187 Calcium Level 9.3 Phosphorus Level 3.1 Magnesium Level 2.3 Total Bilirubin 0.2 Direct Bilirubin 0.00 Indirect Bilirubin 0.2 Aspartate Amino Transf (AST/SGOT) 24 Alanine Aminotransferase (ALT/SGPT) 27 Alkaline Phosphatase 88 B-Type Natriuretic Peptide 676 H Total Protein 7.1 Albumin 3.4 Globulin 3.70 H Albumin/Globulin Ratio 0.91 Medications Medications Current Medications Miscellaneous Information 1 ea NOTE XX ; Start 03/02/17 at 00:30 Glucose (Glutose) 15 gm Q15M PRN PO DECREASED GLUCOSE; Start 03/02/17 at 00:30 Glucose (Glutose) 22.5 gm Q15M PRN PO DECREASED GLUCOSE; Start 03/02/17 at 00: 30 Dextrose (D50w Syringe) 25 ml Q15M PRN IV DECREASED GLUCOSE; Start 03/02/17 at 00:30 Dextrose (D50w Syringe) 50 ml Q15M PRN IV DECREASED GLUCOSE; Start 03/02/17 at 00:30 Glucagon (Glucagen) 1 mg Q15M PRN IM DECREASED GLUCOSE; Start 03/02/17 at 00:30 Glucose (Glutose) 15 gm Q15M PRN BUCCAL DECREASED GLUCOSE; Start 03/02/17 at 00 :30 Insulin Aspart (Novolog Insulin Pen) NOVOLOG *MILD* ALGORI... Q4 SC Last administered on 03/16/17 04:30; Admin Dose 1 UNIT; Start 03/06/17 at 05:00 Aspirin (Halfprin) 81 mg DAILY PO Last administered on 03/15/17 08:36; Admin Dose 81 MG; Start 03/07/17 at 09:00 Atorvastatin Calcium (Lipitor) 40 mg QHS PO Last administered on 03/15/17 20: 45; Admin Dose 40 MG; Start 03/06/17 at 21:00 Diclofenac Sodium (Voltaren) 75 mg DAILY PO Last administered on 03/15/17 08: 36; Admin Dose 75 MG; Start 03/07/17 at 09:00 Donepezil HCl (Aricept) 5 mg QHS PO Last administered on 03/15/17 20:45; Admin Dose 5 MG; Start 03/06/17 at 21:00 Metoprolol Tartrate 25 mg 25 mg BID PO Last administered on 03/15/17 20:45; Admin Dose 25 MG; Start 03/09/17 at 09:00 Diltiazem HCl (Cardizem-D5W 125 Mg/125 ml Drip) 125 ml @ 5 mls/hr TITRATE IV Last administered on 03/15/17 03:35; Admin Dose 10 MLS/HR; Start 03/11/17 at 22 :30 Morphine Sulfate (morphine) 3 mg Q4H PRN IV PAIN LEVEL 6-10 Last administered on 03/14/17 13:06; Admin Dose 3 MG; Start 03/12/17 at 00:00 Furosemide (Lasix) 40 mg DAILY IV ; Start 03/16/17 at 09:00 Potassium Chloride (Klor-Con 20) 40 meq DAILY PO Last administered on 14:34; Admin Dose 40 MEQ; Start 03/15/17 at 14:30; Stop 03/18/17 at 14:29 Acetaminophen (Tylenol Tab) 325 mg Q4H PRN PO PAIN AND OR ELEVATED TEMP; Start 03/15/17 at 14:30 Pantoprazole (Protonix Tab) 40 mg BID@06,18 PO Last administered on 03/16/17 05:51; Admin Dose 40 MG; Start 03/15/17 at 18:00 Insulin Glargine (Lantus) 10 unit DAILY@20 SC Last administered on 03/15/17 20 :50; Admin Dose 10 UNIT; Start 03/15/17 at 20:00 TYREE MCKOY MD Mar 16, 2017 07:39
--- NOTE | 2017-03-16 08:23 | RADRPT ---
PROCEDURE: XR Chest. CLINICAL INDICATION: CHF TECHNIQUE: An AP view of the chest was obtained. COMPARISON: Chest x-ray dated 03/12/2017 FINDINGS: There is prominence of the interstitial and central pulmonary vascular markings with small bilatera l pleural effusions. No focal airspace opacification or pneumothorax is seen. The cardiomediastin al silhouette is mildly enlarged . Calcifications are seen within the aortic arch. The osseous str uctures demonstrate senescent changes. IMPRESSION: 1. Findings suggestive of pulmonary vascular congestion with small bilateral pleural effusions, mi ldly improved when compared to the prior examination. 2. Mild cardiomegaly and aortic atherosclerosis. RPTAT: HH .Deepti Mohr MD, MD Date Time Electronically viewed and signed by .Deepti Mohr MD, on 03/16/2017 08:23 .G/
[2017-03-16] MEDS ORDERED: FUROSEMIDE 40 MG INJ IV SCH (09:00)
[2017-03-16] MEDS: POTASSIUM CHLORIDE (SR) 20 MEQ TAB PO SCH (09:22)
[2017-03-16] MEDS: DICLOFENAC (EC) 75 MG TAB PO SCH (09:22)
[2017-03-16] MEDS: ASPIRIN (EC) 81 MG TAB PO SCH (09:22)
[2017-03-16] MEDS: ACETAZOLAMIDE 500 MG INJ IV SCH (09:22)
[2017-03-16] MEDS: METOPROLOL 25 MG TAB PO SCH ×4 (09:22→20:32)
--- NOTE | 2017-03-16 10:17 | CONS ---
Date/Time of Note Date/Time of Note DATE: 03/16/17 TIME: 10:14 Consult Date/Type/Reason Admit Date/Time Mar 01, 2017 at 20:20 Initial Consult Date 03/02/17 Type of Consultation: Pulmonary Ordering Provider: MICHELLE MORENO Subjective Patient remains confused on 90% FiO2. Awake alert hemodynamically stable. Objective Vital Signs Date Time Temp Pulse Resp B/P Pulse Ox O2 Delivery O2 Flow Rate FiO2 03/16/17 09:00 74 16 128/48 100 High Flow 03/16/17 08:00 97.9 03/16/17 05:56 50 03/15/17 12:00 10.0 Intake and Output 03/15/17 03/15/17 03/16/17 15:00 23:00 07:00 Intake Total 205 ml 100 ml Output Total 450 ml 350 ml 400 ml Balance -245 ml -250 ml -400 ml Exam PHYSICAL EXAMINATION GENERAL: Elderly lady on high flow O2. VITAL SIGNS: see below. HEENT: Pupils equal, round, and reactive to light. CARDIAC: S1, S2, 1/6 systolic ejection murmur CHEST: Diminished air entry bilaterally. ABDOMEN: Mildly distended. Bowel sounds present no guarding or rebound EXTREMITIES: No cyanosis, clubbing edema +1 NEUROLOGIC: Generalized weakness Results/Medications Result Diagram: 03/16/17 0455 03/16/17 0455 Results 24 hrs Chest x-ray Pulmonary edema small effusions Laboratory Tests Test 03/15/17 12:06 03/15/17 16:16 03/15/17 19:55 03/15/17 23:53 Bedside Glucose 252 H 315 H 340 H 244 H Test 03/16/17 03:55 03/16/17 04:55 03/16/17 09:17 Bedside Glucose 169 171 White Blood Count 8.2 Red Blood Count 3.06 L Hemoglobin 9.3 L Hematocrit 30.2 L Mean Corpuscular Volume 98.7 Mean Corpuscular Hemoglobin 30.4 Mean Corpuscular Hemoglobin Concent 30.8 L Red Cell Distribution Width 15.0 H Platelet Count 315 Mean Platelet Volume 10.5 H Neutrophils % 70.4 Lymphocytes % 16.3 Monocytes % 9.2 Eosinophils % 3.1 Basophils % 0.5 Nucleated Red Blood Cells % 0.0 Neutrophils # 5.8 Lymphocytes # 1.3 Monocytes # 0.8 Eosinophils # 0.3 Basophils # 0.0 Nucleated Red Blood Cells # 0.0 Sodium Level 146 H Potassium Level 3.9 Chloride Level 90 L Carbon Dioxide Level 47 *H Anion Gap 13 Blood Urea Nitrogen 21 H Creatinine 0.90 Glucose Level 187 Calcium Level 9.3 Phosphorus Level 3.1 Magnesium Level 2.3 Total Bilirubin 0.2 Direct Bilirubin 0.00 Indirect Bilirubin 0.2 Aspartate Amino Transf (AST/SGOT) 24 Alanine Aminotransferase (ALT/SGPT) 27 Alkaline Phosphatase 88 B-Type Natriuretic Peptide 676 H Total Protein 7.1 Albumin 3.4 Globulin 3.70 H Albumin/Globulin Ratio 0.91 Medications Current Medications Miscellaneous Information 1 ea NOTE XX ; Start 03/02/17 at 00:30 Glucose (Glutose) 15 gm Q15M PRN PO DECREASED GLUCOSE; Start 03/02/17 at 00:30 Glucose (Glutose) 22.5 gm Q15M PRN PO DECREASED GLUCOSE; Start 03/02/17 at 00: 30 Dextrose (D50w Syringe) 25 ml Q15M PRN IV DECREASED GLUCOSE; Start 03/02/17 at 00:30 Dextrose (D50w Syringe) 50 ml Q15M PRN IV DECREASED GLUCOSE; Start 03/02/17 at 00:30 Glucagon (Glucagen) 1 mg Q15M PRN IM DECREASED GLUCOSE; Start 03/02/17 at 00:30 Glucose (Glutose) 15 gm Q15M PRN BUCCAL DECREASED GLUCOSE; Start 03/02/17 at 00 :30 Insulin Aspart (Novolog Insulin Pen) NOVOLOG *MILD* ALGORI... Q4 SC Last administered on 03/16/17 09:30; Admin Dose 1 UNIT; Start 03/06/17 at 05:00 Aspirin (Halfprin) 81 mg DAILY PO Last administered on 03/16/17 09:22; Admin Dose 81 MG; Start 03/07/17 at 09:00 Atorvastatin Calcium (Lipitor) 40 mg QHS PO Last administered on 03/15/17 20: 45; Admin Dose 40 MG; Start 03/06/17 at 21:00 Diclofenac Sodium (Voltaren) 75 mg DAILY PO Last administered on 03/16/17 09: 22; Admin Dose 75 MG; Start 03/07/17 at 09:00 Donepezil HCl 5 mg 5 mg QHS PO Last administered on 03/15/17 20:45; Admin Dose 5 MG; Start 03/06/17 at 21:00 Diltiazem HCl (Cardizem-D5W 125 Mg/125 ml Drip) 125 ml @ 5 mls/hr TITRATE IV Last administered on 03/15/17 03:35; Admin Dose 10 MLS/HR; Start 03/11/17 at 22 :30 Morphine Sulfate (morphine) 3 mg Q4H PRN IV PAIN LEVEL 6-10 Last administered on 03/14/17 13:06; Admin Dose 3 MG; Start 03/12/17 at 00:00 Potassium Chloride (Klor-Con 20) 40 meq DAILY PO Last administered on 09:22; Admin Dose 40 MEQ; Start 03/15/17 at 14:30; Stop 03/18/17 at 14:29 Acetaminophen (Tylenol Tab) 325 mg Q4H PRN PO PAIN AND OR ELEVATED TEMP; Start 03/15/17 at 14:30 Pantoprazole (Protonix Tab) 40 mg BID@06,18 PO Last administered on 03/16/17 05:51; Admin Dose 40 MG; Start 03/15/17 at 18:00 Insulin Glargine (Lantus) 10 unit DAILY@20 SC Last administered on 03/15/17 20 :50; Admin Dose 10 UNIT; Start 03/15/17 at 20:00 Acetazolamide (Diamox) 500 mg DAILY IV Last administered on 03/16/17 09:22; Admin Dose 500 MG; Start 03/16/17 at 09:00; Stop 03/18/17 at 08:59 Metoprolol Tartrate (Lopressor) 25 mg QID PO Last administered on 03/16/17 09: 22; Admin Dose 25 MG; Start 03/16/17 at 09:00 Assessment/Plan Chief Complaint/Hosp Course Assessment 1. Hypoxemic and hypercapnic respiratory failure likely secondary to community- acquired pneumonia now extubated from mechanical ventilation worsening hypoxemia likely secondary to pulmonary edema given last radiographic findings. 2. Atrial fibrillation with rapid ventricular rate likely exacerbated by hypoxemia and cardiac ischemia 3. 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 Status post septic shock secondary to above 4. Erosive gastritis on EGD findings. Nasogastric tube has been removed per GI recommendations 6. Delirium. Likely toxic metabolic. Plan 1. Continue diuretics 2. Broad-spectrum antibiotic coverage 3. Speech therapy evaluation advance diet as tolerated 4. Nasal cannula oxygen 5. Continue insulin as needed. 6. May require reintubation if fails diuretics and supplemental O2 7. Continue rate control per cardiology. P.o. medications if stable to swallow. 8. CT angiogram today. Disposition critical care time 40 minutes discussed with primary team and nursing staff Problems: MARY ALY MD, [facility] Mar 16, 2017 10:17
--- NOTE | 2017-03-16 13:42 | PN ---
Date/Time of Note Date/Time of Note DATE: 03/16/17 TIME: 13:42 Assessment/Plan VTE Prophylaxis VTE Prophylaxis Intervention: SCD's Lines/Catheters IV Catheter Type (from Nrsg): Saline Lock Urinary Cath still in place: Yes Reason Cath still needed: other (indicate) (agitation) Assessment/Plan Assessment/Plan 86 yo F with dementia admitted from facility for acute hypoxic respiratory failure and sepsis: likely 2/2 aspiration pneumonia. EXTUBATED 03/08. 1. acute hypoxic respiratory failure: 2/2 aspiration pna, now extubated. f/u pulmonology recs, duoneb's prn;sp abx CTA 2 weks ago without evidence of PE 2. Severe sepsis: from aspiration pna, ID following. Likely secondary to respiratory infection. sp abx 3. Tachycardia: afib with RVR vs sinus tach (fluctuates) -cont bb. of note, not on ATC 4. suspected fungal esophagitis: sp antifungal 5. diabetes mellitus: Continue insulin sliding scale. added lantus 10 as taking PO 6. History of essential hypertension: ARB on hold 7. Questionable GI bleed: sp EGD 7.15 , +gastritis -cont PO PPI - ST following 8. DVT and GI prophylaxis: SCDs, Protonix 9. hyperthyroid - 7.13 labs notable for hyperthyroid (TSH low, t4 high)--> consider post discharge fu with PCP 10. hypernatremia - resolved Code status: full code, bioethics meeting scheduled for tomorrow full code at this time transfer to tele ARU cs placed critical care time: 30minutes Subjective 24 Hr Interval Summary Free Text/Dictation Pt still requiring high amounts of supplemental O2 but is is good spirits Exam/Review of Systems Vital Signs Vitals Vital Signs Date Time Temp Pulse Resp B/P Pulse Ox O2 Delivery O2 Flow Rate FiO2 03/16/17 13:00 64 12 100/43 97 High Flow 03/16/17 12:00 98.1 03/16/17 11:10 60 03/15/17 12:00 10.0 Intake and Output 03/15/17 03/15/17 03/16/17 15:00 23:00 07:00 Intake Total 205 ml 100 ml Output Total 450 ml 350 ml 400 ml Balance -245 ml -250 ml -400 ml Exam nad, sitting up in bed, interacting in [place] lungs clear anteriorly no mrg abd soft no Results Result Diagram: 03/16/17 0455 03/16/17 0455 Results 24 hrs Laboratory Tests Test 03/15/17 16:16 03/15/17 19:55 03/15/17 23:53 03/16/17 03:55 Bedside Glucose 315 H 340 H 244 H 169 Test 03/16/17 04:55 03/16/17 09:17 03/16/17 12:03 White Blood Count 8.2 Red Blood Count 3.06 L Hemoglobin 9.3 L Hematocrit 30.2 L Mean Corpuscular Volume 98.7 Mean Corpuscular Hemoglobin 30.4 Mean Corpuscular Hemoglobin Concent 30.8 L Red Cell Distribution Width 15.0 H Platelet Count 315 Mean Platelet Volume 10.5 H Neutrophils % 70.4 Lymphocytes % 16.3 Monocytes % 9.2 Eosinophils % 3.1 Basophils % 0.5 Nucleated Red Blood Cells % 0.0 Neutrophils # 5.8 Lymphocytes # 1.3 Monocytes # 0.8 Eosinophils # 0.3 Basophils # 0.0 Nucleated Red Blood Cells # 0.0 Sodium Level 146 H Potassium Level 3.9 Chloride Level 90 L Carbon Dioxide Level 47 *H Anion Gap 13 Blood Urea Nitrogen 21 H Creatinine 0.90 Glucose Level 187 Calcium Level 9.3 Phosphorus Level 3.1 Magnesium Level 2.3 Total Bilirubin 0.2 Direct Bilirubin 0.00 Indirect Bilirubin 0.2 Aspartate Amino Transf (AST/SGOT) 24 Alanine Aminotransferase (ALT/SGPT) 27 Alkaline Phosphatase 88 B-Type Natriuretic Peptide 676 H Total Protein 7.1 Albumin 3.4 Globulin 3.70 H Albumin/Globulin Ratio 0.91 Bedside Glucose 171 156 Medications Medications Current Medications Miscellaneous Information 1 ea NOTE XX ; Start 03/02/17 at 00:30 Glucose (Glutose) 15 gm Q15M PRN PO DECREASED GLUCOSE; Start 03/02/17 at 00:30 Glucose (Glutose) 22.5 gm Q15M PRN PO DECREASED GLUCOSE; Start 03/02/17 at 00: 30 Dextrose (D50w Syringe) 25 ml Q15M PRN IV DECREASED GLUCOSE; Start 03/02/17 at 00:30 Dextrose (D50w Syringe) 50 ml Q15M PRN IV DECREASED GLUCOSE; Start 03/02/17 at 00:30 Glucagon (Glucagen) 1 mg Q15M PRN IM DECREASED GLUCOSE; Start 03/02/17 at 00:30 Glucose (Glutose) 15 gm Q15M PRN BUCCAL DECREASED GLUCOSE; Start 03/02/17 at 00 :30 Insulin Aspart (Novolog Insulin Pen) NOVOLOG *MILD* ALGORI... Q4 SC Last administered on 03/16/17 12:08; Admin Dose 1 UNIT; Start 03/06/17 at 05:00 Aspirin (Halfprin) 81 mg DAILY PO Last administered on 03/16/17 09:22; Admin Dose 81 MG; Start 03/07/17 at 09:00 Atorvastatin Calcium (Lipitor) 40 mg QHS PO Last administered on 03/15/17 20: 45; Admin Dose 40 MG; Start 03/06/17 at 21:00 Diclofenac Sodium (Voltaren) 75 mg DAILY PO Last administered on 03/16/17 09: 22; Admin Dose 75 MG; Start 03/07/17 at 09:00 Donepezil HCl 5 mg 5 mg QHS PO Last administered on 03/15/17 20:45; Admin Dose 5 MG; Start 03/06/17 at 21:00 Diltiazem HCl (Cardizem-D5W 125 Mg/125 ml Drip) 125 ml @ 5 mls/hr TITRATE IV Last administered on 03/15/17 03:35; Admin Dose 10 MLS/HR; Start 03/11/17 at 22 :30 Morphine Sulfate (morphine) 3 mg Q4H PRN IV PAIN LEVEL 6-10 Last administered on 03/14/17 13:06; Admin Dose 3 MG; Start 03/12/17 at 00:00 Potassium Chloride (Klor-Con 20) 40 meq DAILY PO Last administered on 09:22; Admin Dose 40 MEQ; Start 03/15/17 at 14:30; Stop 03/18/17 at 14:29 Acetaminophen (Tylenol Tab) 325 mg Q4H PRN PO PAIN AND OR ELEVATED TEMP; Start 03/15/17 at 14:30 Pantoprazole (Protonix Tab) 40 mg BID@06,18 PO Last administered on 03/16/17 05:51; Admin Dose 40 MG; Start 03/15/17 at 18:00 Insulin Glargine (Lantus) 10 unit DAILY@20 SC Last administered on 03/15/17 20 :50; Admin Dose 10 UNIT; Start 03/15/17 at 20:00 Acetazolamide (Diamox) 500 mg DAILY IV Last administered on 03/16/17 09:22; Admin Dose 500 MG; Start 03/16/17 at 09:00; Stop 03/18/17 at 08:59 Metoprolol Tartrate (Lopressor) 25 mg QID PO Last administered on 03/16/17 09: 22; Admin Dose 25 MG; Start 03/16/17 at 09:00 NICK BROWN MD Mar 16, 2017 13:42 NICK BROWN MD Mar 16, 2017 13:42
--- NOTE | 2017-03-16 14:54 | CONS ---
Date/Time of Note Date/Time of Note DATE: 03/16/17 TIME: 14:49 Assessment/Plan Assessment/Plan Chief Complaint/Hosp Course ID PROGRESS NOTE TOTAL ABX DAY => OFF ABX DAY #6 * s/p 11 DAYS ABX: ZOSYN, Vanco IV, Diflucan 24H INTERVAL SUMMARY/HOSPITAL COURSE * Status quo -> 86 yo F w/dementia and dysphagia - awake, confused => hx of recurrent Aspiration events/PNA * No fevers, WBC remains normalized, Stable on supplemental O2 via FM => Extubated 03/08 * 03/16/17 CXR: Findings suggestive of pulmonary vascular congestion with small bilateral pleural effusions, mildly improved when compared to the prior examination. * TNS to tele orders PHYSICAL EXAMINATION: GENERAL: No fevers, VSS, NAD HEENT: Unremarkable NECK: Trach midline, supple CHEST: Rise symmetrical without dyspnea on supplemental O2 via DM CV: Radial pulse RRR, mild tachy on tele ABDOMEN: Soft, nondistended EXTREMITIES: Warm, dry, intact ID ASSESSMENT: 86 yo F s/PMHx dementia w/memory impairment admit with: 1. s/p Sepsis with shock and persistent leukocytosis==>on admission due to #2 = RESOLVED * No fevers, WBC normalizing, off pressors, tachycardia resolved 2. ASPIRATION PNA on admission = STABLE S/P 11 DAYS IV ABX * ASP PNA risk factors: Age, ?dementia, Esophagitis suspect GERD possible silent Aspiration syndrome * CXR 03/16/17: pulmonary vascular congestion with small bilateral pleural effusions, mildly improved when compared to the prior examination. 2. Mild cardiomegaly and aortic atherosclerosis. 3. Acute hypoxic/hypercapnic respiratory failure => s/p oral intubation/ mechanical Vent =>EXTUBATED 03/08/17 * Stable on supplemental O2 via FM 4. s/p Upper GIB -> s/p EGD 03/04/17 revealed (+) Erosive esophagitis w/ Erosive fundal gastritis, related to NG tube trauma. Nodular gastritis * s/p empiric Diflucan for concern esophagitis * 03/04 PATHO REPORT: Gastric biopsy:-- Reactive gastropathy, mild, with focal early acute mucosal erosion.-- No Helicobacter organisms are identified in a Giemsa stain (positive control concurrently reviewed).-- There is no evidence of malignancy 5. Non-ST elevation ND in setting sepsis + GIB 6. Parosysmal Afib w/RVR => Amiodarone 7. HTN Heart Disease w/diastolic HF * 2D ECHO: Mild concentric LVH w/ EF ~55 %l Stage I diastolic dysfunction. 8. Diabetes (-) MRSA Nares screen INVASIVES: L-SubC TLC, FC ABX ALLERGY: KNDA CURRENT ABX: => OFF ABX DAY #6 s/p 11 DAYS ABX: ZOSYN, Vanco IV, Diflucan ID PLAN: * Continue to monitor the patient OFF ABX, with repeat MICRO PRN clinical indicators of recurrent sepsis * Aspiration precautions, follow speech Tx recommendations * ID will continue to monitor - TNS to tele ? . Problems: Consultation Date/Type/Reason Admit Date/Time Mar 01, 2017 at 20:20 Initial Consult Date 03/04/17 Type of Consultation: ID Referring Provider: MICHELLE MORENO Exam/Review of Systems Vital Signs Vitals Vital Signs Date Time Temp Pulse Resp B/P Pulse Ox O2 Delivery O2 Flow Rate FiO2 03/16/17 13:00 64 12 100/43 97 High Flow 03/16/17 12:00 98.1 03/16/17 11:10 60 03/15/17 12:00 10.0 Intake and Output 03/15/17 03/15/17 03/16/17 15:00 23:00 07:00 Intake Total 205 ml 100 ml Output Total 450 ml 350 ml 400 ml Balance -245 ml -250 ml -400 ml Results Result Diagram: 03/16/17 0455 03/16/17 0455 Results 24 hrs Laboratory Tests Test 03/15/17 16:16 03/15/17 19:55 03/15/17 23:53 03/16/17 03:55 Bedside Glucose 315 H 340 H 244 H 169 Test 03/16/17 04:55 03/16/17 09:17 03/16/17 12:03 White Blood Count 8.2 Red Blood Count 3.06 L Hemoglobin 9.3 L Hematocrit 30.2 L Mean Corpuscular Volume 98.7 Mean Corpuscular Hemoglobin 30.4 Mean Corpuscular Hemoglobin Concent 30.8 L Red Cell Distribution Width 15.0 H Platelet Count 315 Mean Platelet Volume 10.5 H Neutrophils % 70.4 Lymphocytes % 16.3 Monocytes % 9.2 Eosinophils % 3.1 Basophils % 0.5 Nucleated Red Blood Cells % 0.0 Neutrophils # 5.8 Lymphocytes # 1.3 Monocytes # 0.8 Eosinophils # 0.3 Basophils # 0.0 Nucleated Red Blood Cells # 0.0 Sodium Level 146 H Potassium Level 3.9 Chloride Level 90 L Carbon Dioxide Level 47 *H Anion Gap 13 Blood Urea Nitrogen 21 H Creatinine 0.90 Glucose Level 187 Calcium Level 9.3 Phosphorus Level 3.1 Magnesium Level 2.3 Total Bilirubin 0.2 Direct Bilirubin 0.00 Indirect Bilirubin 0.2 Aspartate Amino Transf (AST/SGOT) 24 Alanine Aminotransferase (ALT/SGPT) 27 Alkaline Phosphatase 88 B-Type Natriuretic Peptide 676 H Total Protein 7.1 Albumin 3.4 Globulin 3.70 H Albumin/Globulin Ratio 0.91 Bedside Glucose 171 156 Medications Medications Current Medications Miscellaneous Information 1 ea NOTE XX ; Start 03/02/17 at 00:30 Glucose (Glutose) 15 gm Q15M PRN PO DECREASED GLUCOSE; Start 03/02/17 at 00:30 Glucose (Glutose) 22.5 gm Q15M PRN PO DECREASED GLUCOSE; Start 03/02/17 at 00: 30 Dextrose (D50w Syringe) 25 ml Q15M PRN IV DECREASED GLUCOSE; Start 03/02/17 at 00:30 Dextrose (D50w Syringe) 50 ml Q15M PRN IV DECREASED GLUCOSE; Start 03/02/17 at 00:30 Glucagon (Glucagen) 1 mg Q15M PRN IM DECREASED GLUCOSE; Start 03/02/17 at 00:30 Glucose (Glutose) 15 gm Q15M PRN BUCCAL DECREASED GLUCOSE; Start 03/02/17 at 00 :30 Insulin Aspart (Novolog Insulin Pen) NOVOLOG *MILD* ALGORI... Q4 SC Last administered on 03/16/17 12:08; Admin Dose 1 UNIT; Start 03/06/17 at 05:00 Aspirin (Halfprin) 81 mg DAILY PO Last administered on 03/16/17 09:22; Admin Dose 81 MG; Start 03/07/17 at 09:00 Atorvastatin Calcium (Lipitor) 40 mg QHS PO Last administered on 03/15/17 20: 45; Admin Dose 40 MG; Start 03/06/17 at 21:00 Diclofenac Sodium (Voltaren) 75 mg DAILY PO Last administered on 03/16/17 09: 22; Admin Dose 75 MG; Start 03/07/17 at 09:00 Donepezil HCl (Aricept) 5 mg QHS PO Last administered on 03/15/17 20:45; Admin Dose 5 MG; Start 03/06/17 at 21:00 Morphine Sulfate (morphine) 3 mg Q4H PRN IV PAIN LEVEL 6-10 Last administered on 03/14/17 13:06; Admin Dose 3 MG; Start 03/12/17 at 00:00 Potassium Chloride (Klor-Con 20) 40 meq DAILY PO Last administered on 09:22; Admin Dose 40 MEQ; Start 03/15/17 at 14:30; Stop 03/18/17 at 14:29 Acetaminophen (Tylenol Tab) 325 mg Q4H PRN PO PAIN AND OR ELEVATED TEMP; Start 03/15/17 at 14:30 Pantoprazole (Protonix Tab) 40 mg BID@06,18 PO Last administered on 03/16/17 05:51; Admin Dose 40 MG; Start 03/15/17 at 18:00 Insulin Glargine (Lantus) 10 unit DAILY@20 SC Last administered on 03/15/17 20 :50; Admin Dose 10 UNIT; Start 03/15/17 at 20:00 Acetazolamide (Diamox) 500 mg DAILY IV Last administered on 03/16/17 09:22; Admin Dose 500 MG; Start 03/16/17 at 09:00; Stop 03/18/17 at 08:59 Metoprolol Tartrate (Lopressor) 25 mg QID PO Last administered on 03/16/17 09: 22; Admin Dose 25 MG; Start 03/16/17 at 09:00 SUZY ISABEL NP Mar 16, 2017 14:54
[2017-03-16] MEDS: INSULIN GLARGINE [LANtus] 3 ML PEN SC SCH (20:30)
[2017-03-16] MEDS: ATORVASTATIN 40 MG TAB PO SCH (20:31)
[2017-03-16] MEDS: DONEPEZIL 5 MG TAB PO SCH (20:32)
[2017-03-17] VITALS (27 sets, daily range): BP systolic 95–141; BP diastolic 38–106; PULSE 59–120; RESP 11–23
[2017-03-17] MEDS: INSULIN ASPART [NOVOLOG] 3 ML PEN SC SCH ×6 (01:13→21:44)
[2017-03-17 06:11] LABS: BASOPHILS % 0.7 % (0.0-2.0); EOSINOPHILS # 0.3 10^3/ul (0.0-0.5); EOSINOPHILS % 5.6 % (0.0-7.0); HEMOGLOBIN 9.6 g/dl (12.0-16.0); LYMPHOCYTES # 1.2 10^3/ul (0.8-2.9); LYMPHOCYTES % 22.4 % (15.0-51.0); MEAN CORPUSCULAR HEMOGLOBIN 29.6 pg (29.0-33.0); MEAN CORPUSCULAR HGB CONC 29.1 g/dl (32.0-37.0); MEAN CORPUSCULAR VOLUME 101.9 fl (82.0-101.0); MEAN PLATELET VOLUME 10.4 fl (7.4-10.4); MONOCYTE # 0.6 10^3/ul (0.3-0.9); MONOCYTES % 10.2 % (0.0-11.0); NEUTROPHIL # 3.3 10^3/ul (1.6-7.5); NEUTROPHILS % 60.7 % (39.0-77.0); PLATELET COUNT 294 10^3/UL (140-415); RED BLOOD COUNT 3.24 10^6/ul (4.20-5.40); RED CELL DISTRIBUTION WIDTH 15.3 % (11.5-14.5); WHITE BLOOD COUNT 5.5 10^3/ul (4.8-10.8)
[2017-03-17] MEDS: PANTOPRAZOLE (EC) 40 MG TAB PO SCH ×2 (06:25→17:48)
[2017-03-17 06:57] LABS: ALBUMIN 3.5 g/dl (3.3-4.9); ALBUMIN/GLOBULIN RATIO 0.97; BILIRUBIN,INDIRECT 0.2 mg/dl (0-1.1); BILIRUBIN,TOTAL 0.2 mg/dl (0.2-1.3); CALCIUM 9.4 mg/dl (8.4-10.2); CREATININE 0.87 mg/dl (0.44-1.00); POTASSIUM 3.8 mmol/L (3.5-5.1); TOTAL PROTEIN 7.1 g/dl (6.1-8.1)
--- NOTE | 2017-03-17 07:34 | PN ---
Date/Time of Note Date/Time of Note DATE: 03/17/17 TIME: 07:32 Assessment/Plan VTE Prophylaxis VTE Prophylaxis Intervention: other Lines/Catheters IV Catheter Type (from Nrs): Peripheral IV Urinary Cath still in place: Yes Reason Cath still needed: other (indicate) Assessment/Plan Chief Complaint/Hosp Course 1. P afib/ flutter with RVR: 2. acute hypoxemic respiratory failure: extubated now but still very hypoxemic 3. + troponin: c.w NSTEMI due to demand ischemia due to above 4. DM and severely elevated glucose: controlled with insulin 5. dyslipidemia 6. pneumonia/ sepsis 7. s/p shock : appear to be related to sepsis: currently off of levophed 8. hx memory impairment 9. anemia and GI bleed: stable now 10. hypo K. cont ASA. CONSIDER ADDING ELIQUIS 2.5 BID if ok with GI. off of plavix due to above cardizem drip prn cont METOPROLOL DM Control with insulin echo shows normal EF replace lytes including K and Mg prn. diomox for today and reevaluate tomorrow labs in AM Problems: Subjective 24 Hr Interval Summary Free Text/Dictation CARDIOLOGY FOLLOW UP NOTE/ critical care note d/w staff in ICU and rhythm was reviewed. pt has remained in P-AFLUTTER/ FIB but HR is stable now pt is EXTUBATED 03/08 no more bleeding is reported. she denies any chest pain to me but confused. pt has been less hypoxemic but still requires high flow O2 Pt is less confused. OBJECTIVE: General: no acute distress HEENT: NC/AT. pupils are constricted. round. NECK: NO JVD. no stridor. CV: irregularly irregular. systolic murmur; no gallop or rubs. PULM: + diffuse rhonchi. GI: SOFT, NT, ND, no rebound or guarding Extremity: trace B/L LE edema. no clubbing. neuro: awake and alert Psych: calm now. rectal: deferred : deferred ECG 03/17/17 NSR Exam/Review of Systems Vital Signs Vitals Vital Signs Date Time Temp Pulse Resp B/P Pulse Ox O2 Delivery O2 Flow Rate FiO2 03/17/17 06:00 70 23 119/56 96 High Flow 03/17/17 05:53 70 03/17/17 04:00 98.2 03/15/17 12:00 10.0 Intake and Output 03/16/17 03/16/17 03/17/17 15:00 23:00 07:00 Intake Total 120 ml 100 ml 30 ml Output Total 245 ml 240 ml 255 ml Balance -125 ml -140 ml -225 ml Results Result Diagram: 03/17/17 0555 03/17/17 0548 Results 24 hrs Laboratory Tests Test 03/16/17 09:17 03/16/17 12:03 03/16/17 17:12 03/16/17 20:27 Bedside Glucose 171 156 156 175 Test 03/17/17 01:11 03/17/17 05:13 03/17/17 05:48 03/17/17 05:55 Bedside Glucose 168 132 Sodium Level 148 H Potassium Level 3.8 Chloride Level 97 Carbon Dioxide Level 40 H Anion Gap 15 Blood Urea Nitrogen 18 Creatinine 0.87 Glucose Level 150 Calcium Level 9.4 Magnesium Level 2.0 Total Bilirubin 0.2 Direct Bilirubin 0.00 Indirect Bilirubin 0.2 Aspartate Amino Transf (AST/SGOT) 20 Alanine Aminotransferase (ALT/SGPT) 23 Alkaline Phosphatase 84 B-Type Natriuretic Peptide 607 H Total Protein 7.1 Albumin 3.5 Globulin 3.60 H Albumin/Globulin Ratio 0.97 Digoxin Level < 0.4 L White Blood Count 5.5 # Red Blood Count 3.24 L Hemoglobin 9.6 L Hematocrit 33.0 L Mean Corpuscular Volume 101.9 H Mean Corpuscular Hemoglobin 29.6 Mean Corpuscular Hemoglobin Concent 29.1 L Red Cell Distribution Width 15.3 H Platelet Count 294 Mean Platelet Volume 10.4 Neutrophils % 60.7 Lymphocytes % 22.4 Monocytes % 10.2 Eosinophils % 5.6 Basophils % 0.7 Nucleated Red Blood Cells % 0.0 Neutrophils # 3.3 Lymphocytes # 1.2 Monocytes # 0.6 Eosinophils # 0.3 Basophils # 0.0 Nucleated Red Blood Cells # 0.0 Medications Medications Current Medications Miscellaneous Information 1 ea NOTE XX ; Start 03/02/17 at 00:30 Glucose (Glutose) 15 gm Q15M PRN PO DECREASED GLUCOSE; Start 03/02/17 at 00:30 Glucose (Glutose) 22.5 gm Q15M PRN PO DECREASED GLUCOSE; Start 03/02/17 at 00: 30 Dextrose (D50w Syringe) 25 ml Q15M PRN IV DECREASED GLUCOSE; Start 03/02/17 at 00:30 Dextrose (D50w Syringe) 50 ml Q15M PRN IV DECREASED GLUCOSE; Start 03/02/17 at 00:30 Glucagon (Glucagen) 1 mg Q15M PRN IM DECREASED GLUCOSE; Start 03/02/17 at 00:30 Glucose (Glutose) 15 gm Q15M PRN BUCCAL DECREASED GLUCOSE; Start 03/02/17 at 00 :30 Insulin Aspart (Novolog Insulin Pen) NOVOLOG *MILD* ALGORI... Q4 SC Last administered on 03/17/17 01:13; Admin Dose 1 UNIT; Start 03/06/17 at 05:00 Aspirin (Halfprin) 81 mg DAILY PO Last administered on 03/16/17 09:22; Admin Dose 81 MG; Start 03/07/17 at 09:00 Atorvastatin Calcium (Lipitor) 40 mg QHS PO Last administered on 03/16/17 20: 31; Admin Dose 40 MG; Start 03/06/17 at 21:00 Diclofenac Sodium (Voltaren) 75 mg DAILY PO Last administered on 03/16/17 09: 22; Admin Dose 75 MG; Start 03/07/17 at 09:00 Donepezil HCl (Aricept) 5 mg QHS PO Last administered on 03/16/17 20:32; Admin Dose 5 MG; Start 03/06/17 at 21:00 Morphine Sulfate (morphine) 3 mg Q4H PRN IV PAIN LEVEL 6-10 Last administered on 03/14/17 13:06; Admin Dose 3 MG; Start 03/12/17 at 00:00 Potassium Chloride (Klor-Con 20) 40 meq DAILY PO Last administered on 09:22; Admin Dose 40 MEQ; Start 03/15/17 at 14:30; Stop 03/18/17 at 14:29 Acetaminophen (Tylenol Tab) 325 mg Q4H PRN PO PAIN AND OR ELEVATED TEMP; Start 03/15/17 at 14:30 Pantoprazole (Protonix Tab) 40 mg BID@06,18 PO Last administered on 03/17/17 06:25; Admin Dose 40 MG; Start 03/15/17 at 18:00 Insulin Glargine (Lantus) 10 unit DAILY@20 SC Last administered on 03/16/17 20 :30; Admin Dose 10 UNIT; Start 03/15/17 at 20:00 Acetazolamide (Diamox) 500 mg DAILY IV Last administered on 03/16/17 09:22; Admin Dose 500 MG; Start 03/16/17 at 09:00; Stop 03/18/17 at 08:59 Metoprolol Tartrate (Lopressor) 25 mg QID PO Last administered on 03/16/17 20: 32; Admin Dose 25 MG; Start 03/16/17 at 09:00 TYREE MCKOY MD Mar 17, 2017 07:34
--- NOTE | 2017-03-17 08:02 | RADRPT ---
Vent Rate: 77 bpm RR Interval: 0 msec AL Interval: 172 msec QRS Duration: 72 msec QT Interval: 354 msec QTC Interval: 400 msec P-R-T Sellers: -2 - -14 - 0 degrees Normal sinus rhythm Nonspecific ST and T wave abnormality Abnormal ECG Electronically Signed By: Tien Oconnor [id number]
--- NOTE | 2017-03-17 08:24 | RADRPT ---
PROCEDURE: XR Chest. CLINICAL INDICATION: pna chf TECHNIQUE: PA and Lateral views of the chest were obtained. COMPARISON: Chest x-ray 03/16/2017 FINDINGS: The cardiac silhouette remains borderline large. There are atherosclerotic calcifications of the thoracic aorta. There is evidence of persistent pulmonary vascular congestion and interstitial edema, both slightly decreased compared to prior study. There is improved aeration at the left lung base. No pneumothorax, significant pleural effusion, or new parenchymal consolidation is identified. There are degenerative changes of the visualized spine. IMPRESSION: 1. Persistent, but interval decreased pulmonary vascular congestion and interstitial edema. 2. Improved aeration of the left lung base. 3. No new consolidation. 4. Borderline cardiomegaly. RPTAT: PP Physician Femi Date Time Electronically viewed and signed by Physician Femi on 03/17/2017 08:24 /
[2017-03-17] MEDS: DICLOFENAC (EC) 75 MG TAB PO SCH (09:45)
[2017-03-17] MEDS: ASPIRIN (EC) 81 MG TAB PO SCH (09:45)
[2017-03-17] MEDS: POTASSIUM CHLORIDE 20 MEQ POWDER FOR ORAL SOLN PO SCH (09:45)
[2017-03-17] MEDS: METOPROLOL 25 MG TAB PO SCH ×4 (09:46→21:41)
[2017-03-17] MEDS: ACETAZOLAMIDE 500 MG INJ IV SCH (09:46)
--- NOTE | 2017-03-17 09:55 | CONS ---
Date/Time of Note Date/Time of Note DATE: 03/17/17 TIME: 09:54 Consult Date/Type/Reason Admit Date/Time Mar 01, 2017 at 20:20 Initial Consult Date 03/02/17 Type of Consultation: Pulmonary Ordering Provider: MICHELLE MORENO Subjective Awake alert mild confusion Objective Vital Signs Date Time Temp Pulse Resp B/P Pulse Ox O2 Delivery O2 Flow Rate FiO2 03/17/17 08:00 66 03/17/17 06:00 23 119/56 96 High Flow 03/17/17 05:53 70 03/17/17 04:00 98.2 03/15/17 12:00 10.0 Intake and Output 03/16/17 03/16/17 03/17/17 15:00 23:00 07:00 Intake Total 120 ml 100 ml 30 ml Output Total 245 ml 240 ml 255 ml Balance -125 ml -140 ml -225 ml Exam PHYSICAL EXAMINATION GENERAL: Elderly lady on high flow O2. VITAL SIGNS: see below. HEENT: Pupils equal, round, and reactive to light. CARDIAC: S1, S2, 1/6 systolic ejection murmur CHEST: Diminished air entry bilaterally. ABDOMEN: Mildly distended. Bowel sounds present no guarding or rebound EXTREMITIES: No cyanosis, clubbing edema +1 NEUROLOGIC: Generalized weakness Results/Medications Result Diagram: 03/17/17 0555 03/17/17 0548 Results 24 hrs Laboratory Tests Test 03/16/17 12:03 03/16/17 17:12 03/16/17 20:27 03/17/17 01:11 Bedside Glucose 156 156 175 168 Test 03/17/17 05:13 03/17/17 05:48 03/17/17 05:55 03/17/17 09:31 Bedside Glucose 132 135 Sodium Level 148 H Potassium Level 3.8 Chloride Level 97 Carbon Dioxide Level 40 H Anion Gap 15 Blood Urea Nitrogen 18 Creatinine 0.87 Glucose Level 150 Calcium Level 9.4 Magnesium Level 2.0 Total Bilirubin 0.2 Direct Bilirubin 0.00 Indirect Bilirubin 0.2 Aspartate Amino Transf (AST/SGOT) 20 Alanine Aminotransferase (ALT/SGPT) 23 Alkaline Phosphatase 84 B-Type Natriuretic Peptide 607 H Total Protein 7.1 Albumin 3.5 Globulin 3.60 H Albumin/Globulin Ratio 0.97 Digoxin Level < 0.4 L White Blood Count 5.5 # Red Blood Count 3.24 L Hemoglobin 9.6 L Hematocrit 33.0 L Mean Corpuscular Volume 101.9 H Mean Corpuscular Hemoglobin 29.6 Mean Corpuscular Hemoglobin Concent 29.1 L Red Cell Distribution Width 15.3 H Platelet Count 294 Mean Platelet Volume 10.4 Neutrophils % 60.7 Lymphocytes % 22.4 Monocytes % 10.2 Eosinophils % 5.6 Basophils % 0.7 Nucleated Red Blood Cells % 0.0 Neutrophils # 3.3 Lymphocytes # 1.2 Monocytes # 0.6 Eosinophils # 0.3 Basophils # 0.0 Nucleated Red Blood Cells # 0.0 Medications Current Medications Miscellaneous Information 1 ea NOTE XX ; Start 03/02/17 at 00:30 Glucose (Glutose) 15 gm Q15M PRN PO DECREASED GLUCOSE; Start 03/02/17 at 00:30 Glucose (Glutose) 22.5 gm Q15M PRN PO DECREASED GLUCOSE; Start 03/02/17 at 00: 30 Dextrose (D50w Syringe) 25 ml Q15M PRN IV DECREASED GLUCOSE; Start 03/02/17 at 00:30 Dextrose (D50w Syringe) 50 ml Q15M PRN IV DECREASED GLUCOSE; Start 03/02/17 at 00:30 Glucagon (Glucagen) 1 mg Q15M PRN IM DECREASED GLUCOSE; Start 03/02/17 at 00:30 Glucose (Glutose) 15 gm Q15M PRN BUCCAL DECREASED GLUCOSE; Start 03/02/17 at 00 :30 Insulin Aspart (Novolog Insulin Pen) NOVOLOG *MILD* ALGORI... Q4 SC Last administered on 03/17/17 01:13; Admin Dose 1 UNIT; Start 03/06/17 at 05:00 Aspirin (Halfprin) 81 mg DAILY PO Last administered on 03/17/17 09:45; Admin Dose 81 MG; Start 03/07/17 at 09:00 Atorvastatin Calcium (Lipitor) 40 mg QHS PO Last administered on 03/16/17 20: 31; Admin Dose 40 MG; Start 03/06/17 at 21:00 Diclofenac Sodium (Voltaren) 75 mg DAILY PO Last administered on 03/17/17 09: 45; Admin Dose 75 MG; Start 03/07/17 at 09:00 Donepezil HCl (Aricept) 5 mg QHS PO Last administered on 03/16/17 20:32; Admin Dose 5 MG; Start 03/06/17 at 21:00 Morphine Sulfate (morphine) 3 mg Q4H PRN IV PAIN LEVEL 6-10 Last administered on 03/14/17 13:06; Admin Dose 3 MG; Start 03/12/17 at 00:00 Acetaminophen (Tylenol Tab) 325 mg Q4H PRN PO PAIN AND OR ELEVATED TEMP; Start 03/15/17 at 14:30 Pantoprazole (Protonix Tab) 40 mg BID@06,18 PO Last administered on 03/17/17 06:25; Admin Dose 40 MG; Start 03/15/17 at 18:00 Insulin Glargine (Lantus) 10 unit DAILY@20 SC Last administered on 03/16/17 20 :30; Admin Dose 10 UNIT; Start 03/15/17 at 20:00 Acetazolamide (Diamox) 500 mg DAILY IV Last administered on 03/17/17 09:46; Admin Dose 500 MG; Start 03/16/17 at 09:00; Stop 03/18/17 at 08:59 Metoprolol Tartrate (Lopressor) 25 mg QID PO Last administered on 03/17/17 09: 46; Admin Dose 25 MG; Start 03/16/17 at 09:00 Potassium Chloride (Potassium Chloride Pwd/Soln) 40 meq DAILY PO Last administered on 03/17/17 09:45; Admin Dose 40 MEQ; Start 03/17/17 at 09:00 Assessment/Plan Chief Complaint/Hosp Course Assessment 1. Hypoxemic and hypercapnic respiratory failure likely secondary to community- acquired pneumonia now extubated from mechanical ventilation worsening hypoxemia likely secondary to pulmonary edema given last radiographic findings. 2. Atrial fibrillation with rapid ventricular rate likely exacerbated by hypoxemia and cardiac ischemia 3. 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 Status post septic shock secondary to above 4. Erosive gastritis on EGD findings. Nasogastric tube has been removed per GI recommendations 6. Delirium. Likely toxic metabolic. Plan 1. Continue diuretics 2. Broad-spectrum antibiotic coverage 3. Aspiration precautions 4. Vapotherm oxygen 5. Continue insulin as needed. 6. May require reintubation if fails diuretics and supplemental O2 bioethics evaluation 7. Continue rate control per cardiology. P.o. medications if stable to swallow. 8. CT angiogram today. Disposition critical care time 40 minutes discussed with primary team and nursing staff Problems: MARY ALY MD, [facility] Mar 17, 2017 09:55
[2017-03-17] MEDS: morphine 4 MG/ML VIAL IV PRN (12:14)
[2017-03-17] MEDS ORDERED: SOD CHLORIDE 0.9% 100 ML ONE (13:13)
[2017-03-17] MEDS ORDERED: IODIXANOL LOCM 100 ML BTL ONE (13:13)
--- NOTE | 2017-03-17 15:00 | PN ---
Date/Time of Note Date/Time of Note DATE: 03/17/17 TIME: 14:56 Assessment/Plan VTE Prophylaxis VTE Prophylaxis Intervention: SCD's Lines/Catheters IV Catheter Type (from Nrs): Peripheral IV Central line still needed: Yes Urinary Cath still in place: Yes Reason Cath still needed: urinary retention Assessment/Plan Assessment/Plan Assessment * Coffee ground emesis resolved EGD 03/04/2017 Erosive esophagitis Erosive gastritis, NG tube trauma Nodular gastritis. Biopsies obtained * Sepsis improved * Acute respiratory failure improved managed by pulmonary Plan * Continue present regimen * Case discussed with Dr Cormier regarding starting Eliquis,he agreed with the plan * Further orders will depend on clinical course Subjective 24 Hr Interval Summary Free Text/Dictation * Course reviewed with RN * No evidence of bleeding * Tolerating diet , * Hemoglobin stable Exam/Review of Systems Vital Signs Vitals Vital Signs Date Time Temp Pulse Resp B/P Pulse Ox O2 Delivery O2 Flow Rate FiO2 03/17/17 12:00 70 03/17/17 11:20 15 94 Non Rebreather 03/17/17 11:00 118/43 03/17/17 10:30 55 03/17/17 08:00 98.4 03/15/17 12:00 10.0 Intake and Output 03/16/17 03/16/17 03/17/17 15:00 23:00 07:00 Intake Total 120 ml 100 ml 30 ml Output Total 245 ml 240 ml 255 ml Balance -125 ml -140 ml -225 ml Exam Constitutional: frail Neck: non-tender, supple Respiratory: crackles/rales, diminished breath sounds Cardiovascular: nl pulses, regular rate and rhythm Gastrointestinal: non-tender, soft Musculoskeletal: muscle weakness, swelling Extremities: normal pulses Skin: nl turgor, rash or lesions Results Result Diagram: 03/17/17 0555 03/17/17 0548 Results 24 hrs Laboratory Tests Test 03/16/17 17:12 03/16/17 20:27 03/17/17 01:11 03/17/17 05:13 Bedside Glucose 156 175 168 132 Test 03/17/17 05:48 03/17/17 05:55 03/17/17 09:31 03/17/17 14:10 Sodium Level 148 H Potassium Level 3.8 Chloride Level 97 Carbon Dioxide Level 40 H Anion Gap 15 Blood Urea Nitrogen 18 Creatinine 0.87 Glucose Level 150 Calcium Level 9.4 Magnesium Level 2.0 Total Bilirubin 0.2 Direct Bilirubin 0.00 Indirect Bilirubin 0.2 Aspartate Amino Transf (AST/SGOT) 20 Alanine Aminotransferase (ALT/SGPT) 23 Alkaline Phosphatase 84 B-Type Natriuretic Peptide 607 H Total Protein 7.1 Albumin 3.5 Globulin 3.60 H Albumin/Globulin Ratio 0.97 Digoxin Level < 0.4 L White Blood Count 5.5 # Red Blood Count 3.24 L Hemoglobin 9.6 L Hematocrit 33.0 L Mean Corpuscular Volume 101.9 H Mean Corpuscular Hemoglobin 29.6 Mean Corpuscular Hemoglobin Concent 29.1 L Red Cell Distribution Width 15.3 H Platelet Count 294 Mean Platelet Volume 10.4 Neutrophils % 60.7 Lymphocytes % 22.4 Monocytes % 10.2 Eosinophils % 5.6 Basophils % 0.7 Nucleated Red Blood Cells % 0.0 Neutrophils # 3.3 Lymphocytes # 1.2 Monocytes # 0.6 Eosinophils # 0.3 Basophils # 0.0 Nucleated Red Blood Cells # 0.0 Bedside Glucose 135 236 H Medications Medications Current Medications Miscellaneous Information 1 ea NOTE XX ; Start 03/02/17 at 00:30 Glucose (Glutose) 15 gm Q15M PRN PO DECREASED GLUCOSE; Start 03/02/17 at 00:30 Glucose (Glutose) 22.5 gm Q15M PRN PO DECREASED GLUCOSE; Start 03/02/17 at 00: 30 Dextrose (D50w Syringe) 25 ml Q15M PRN IV DECREASED GLUCOSE; Start 03/02/17 at 00:30 Dextrose (D50w Syringe) 50 ml Q15M PRN IV DECREASED GLUCOSE; Start 03/02/17 at 00:30 Glucagon (Glucagen) 1 mg Q15M PRN IM DECREASED GLUCOSE; Start 03/02/17 at 00:30 Glucose (Glutose) 15 gm Q15M PRN BUCCAL DECREASED GLUCOSE; Start 03/02/17 at 00 :30 Insulin Aspart (Novolog Insulin Pen) NOVOLOG *MILD* ALGORI... Q4 SC Last administered on 03/17/17 14:17; Admin Dose 3 UNIT; Start 03/06/17 at 05:00 Aspirin (Halfprin) 81 mg DAILY PO Last administered on 03/17/17 09:45; Admin Dose 81 MG; Start 03/07/17 at 09:00 Atorvastatin Calcium (Lipitor) 40 mg QHS PO Last administered on 03/16/17 20: 31; Admin Dose 40 MG; Start 03/06/17 at 21:00 Diclofenac Sodium (Voltaren) 75 mg DAILY PO Last administered on 03/17/17 09: 45; Admin Dose 75 MG; Start 03/07/17 at 09:00 Donepezil HCl (Aricept) 5 mg QHS PO Last administered on 03/16/17 20:32; Admin Dose 5 MG; Start 03/06/17 at 21:00 Morphine Sulfate (morphine) 3 mg Q4H PRN IV PAIN LEVEL 6-10 Last administered on 03/17/17 12:14; Admin Dose 3 MG; Start 03/12/17 at 00:00 Acetaminophen (Tylenol Tab) 325 mg Q4H PRN PO PAIN AND OR ELEVATED TEMP; Start 03/15/17 at 14:30 Pantoprazole (Protonix Tab) 40 mg BID@06,18 PO Last administered on 03/17/17 06:25; Admin Dose 40 MG; Start 03/15/17 at 18:00 Insulin Glargine (Lantus) 10 unit DAILY@20 SC Last administered on 03/16/17 20 :30; Admin Dose 10 UNIT; Start 03/15/17 at 20:00 Acetazolamide (Diamox) 500 mg DAILY IV Last administered on 03/17/17 09:46; Admin Dose 500 MG; Start 03/16/17 at 09:00; Stop 03/18/17 at 08:59 Metoprolol Tartrate (Lopressor) 25 mg QID PO Last administered on 03/17/17 14: 14; Admin Dose 25 MG; Start 03/16/17 at 09:00 Potassium Chloride (Potassium Chloride Pwd/Soln) 40 meq DAILY PO Last administered on 03/17/17 09:45; Admin Dose 40 MEQ; Start 03/17/17 at 09:00 NATALIIA YAN NP Mar 17, 2017 15:00
--- NOTE | 2017-03-17 15:56 | RADRPT ---
PROCEDURE: CTA Chest. CLINICAL INDICATION: Sepsis. TECHNIQUE: Multiple contiguous axial CT images of the chest were obtained following the administra tion of 95 cc Visipaque 320 intravenous contrast. High-resolution thin slice coronal and sagittal r eformats were obtained from the axial source images. 3-D volumetric rendered post processing was al so performed. CTDIvol(mGy): 35.21, 13.10; Total Exam DLP (mGy-cm): 505.72. One or more of the following dose reduction techniques were utilized: - Automated exposure control. - Adjustment of the mA and/or kV according to patient size. - Use of iterative reconstruction technique. COMPARISON: Chest x-ray 03/17/2017. CTA chest 03/01/2017. FINDINGS: Limited imaging of the lower neck is unremarkable. The heart is within upper limits of normal in size to mildly enlarged. There is no pericardial effu mary. There is no mediastinal, hilar or axillary lymphadenopathy. The thoracic aorta is normal in caliber. Thoracic aortic atherosclerotic calcification is present. Coronary artery calcifications a re present. The pulmonary arteries are not enlarged. There are no central filling defects to sugges t the presence of acute pulmonary embolism. Small bilateral pleural effusions are present. Mild basilar atelectatic changes are also observed. Mild residual bronchial wall thickening is present and improved since prior examination. Multifoca l bronchiolitis has near completely resolved. There is no concerning pulmonary nodule. Limited imaging of the upper abdomen is unremarkable. The concentric wall thickening of the mid dist al esophagus seen on prior examination is no longer observed. Mild degenerative changes of the thoracic spine are present. Chest wall soft tissues are unremarkab le. IMPRESSION: No evidence of acute pulmonary embolism. Near complete resolution of multifocal bronchiolitis. Residual bronchial wall thickening is seen wit hin the lung bases and has decreased. Small bilateral pleural effusions. RPTAT: HLST .Ro Gee MD, MD Date Time Electronically viewed and signed by .Ro Gee MD, on 03/17/2017 15:55 .T/
--- NOTE | 2017-03-17 16:06 | CONS ---
Date/Time of Note Date/Time of Note DATE: 03/17/17 TIME: 16:02 Assessment/Plan Assessment/Plan Chief Complaint/Hosp Course ID PROGRESS NOTE TOTAL ABX DAY => OFF ABX DAY #7 * s/p 11 DAYS ABX: ZOSYN, Vanco IV, Diflucan 24H INTERVAL SUMMARY/HOSPITAL COURSE * CT CXT today 03/17/17 IMPRESSION:No evidence of acute pulmonary embolism.Near complete resolution of multifocal bronchiolitis. Residual bronchial wall thickening is seen within the lung bases and has decreased. Small bilateral pleural effusions. * Confused, VSS, NAD * PTx today with notation quoting: "easily fatiguing, B LE weakness L>R and desaturation after gait. " PHYSICAL EXAMINATION: GENERAL: No fevers, VSS, NAD HEENT: Unremarkable NECK: Trach midline, supple CHEST: Rise symmetrical without dyspnea on supplemental O2 via DM CV: Radial pulse RRR, mild tachy on tele ABDOMEN: Soft, nondistended EXTREMITIES: Warm, dry, intact ID ASSESSMENT: 86 yo F s/PMHx dementia w/memory impairment admit with: 1. s/p Sepsis with shock and persistent leukocytosis==>on admission due to #2 = RESOLVED * No fevers, WBC normalizing, off pressors, tachycardia resolved 2. Multifocal bronchiolitis (+/-) ASPIRATION PNA on admission = STABLE S/P 11 DAYS IV ABX * ASP PNA risk factors: Age, ?dementia, Esophagitis suspect GERD possible silent Aspiration syndrome * CT CXT 03/17/17 IMPRESSION:No evidence of acute pulmonary embolism.Near complete resolution of multifocal bronchiolitis. Residual bronchial wall thickening is seen within the lung bases and has decreased. Small bilateral pleural effusions. 2. Mild cardiomegaly and aortic atherosclerosis. 3. Acute hypoxic/hypercapnic respiratory failure => s/p oral intubation/ mechanical Vent =>EXTUBATED 03/08/17 * Stable on supplemental O2 via FM 4. s/p Upper GIB -> s/p EGD 03/04/17 revealed (+) Erosive esophagitis w/ Erosive fundal gastritis, related to NG tube trauma. Nodular gastritis * s/p empiric Diflucan for concern esophagitis * 03/04 PATHO REPORT: Gastric biopsy:-- Reactive gastropathy, mild, with focal early acute mucosal erosion.-- No Helicobacter organisms are identified in a Giemsa stain (positive control concurrently reviewed).-- There is no evidence of malignancy 5. Non-ST elevation CO in setting sepsis + GIB 6. Parosysmal Afib w/RVR => Amiodarone 7. HTN Heart Disease w/diastolic HF * 2D ECHO: Mild concentric LVH w/ EF ~55 %l Stage I diastolic dysfunction. 8. Diabetes (-) MRSA Nares screen INVASIVES: L-SubC TLC, FC ABX ALLERGY: KNDA CURRENT ABX: => OFF ABX DAY #6 s/p 11 DAYS ABX: ZOSYN, Vanco IV, Diflucan ID PLAN: * Continue to monitor the patient OFF ABX, with repeat MICRO PRN clinical indicators of recurrent sepsis * CT Today Near complete resolution of multifocal bronchiolitis. * Aspiration precautions, follow speech Tx recommendations * ID will continue to monitor - TNS to tele ? . Problems: Consultation Date/Type/Reason Admit Date/Time Mar 01, 2017 at 20:20 Initial Consult Date 03/04/17 Type of Consultation: ID Referring Provider: MICHELLE MORENO Exam/Review of Systems Vital Signs Vitals Vital Signs Date Time Temp Pulse Resp B/P Pulse Ox O2 Delivery O2 Flow Rate FiO2 03/17/17 12:00 70 03/17/17 11:20 15 94 Non Rebreather 03/17/17 11:00 118/43 03/17/17 10:30 55 03/17/17 08:00 98.4 03/15/17 12:00 10.0 Intake and Output 03/16/17 03/16/17 03/17/17 15:00 23:00 07:00 Intake Total 120 ml 100 ml 30 ml Output Total 245 ml 240 ml 255 ml Balance -125 ml -140 ml -225 ml Results Result Diagram: 03/17/17 0555 03/17/17 0548 Results 24 hrs Laboratory Tests Test 03/16/17 17:12 03/16/17 20:27 03/17/17 01:11 03/17/17 05:13 Bedside Glucose 156 175 168 132 Test 03/17/17 05:48 03/17/17 05:55 03/17/17 09:31 03/17/17 14:10 Sodium Level 148 H Potassium Level 3.8 Chloride Level 97 Carbon Dioxide Level 40 H Anion Gap 15 Blood Urea Nitrogen 18 Creatinine 0.87 Glucose Level 150 Calcium Level 9.4 Magnesium Level 2.0 Total Bilirubin 0.2 Direct Bilirubin 0.00 Indirect Bilirubin 0.2 Aspartate Amino Transf (AST/SGOT) 20 Alanine Aminotransferase (ALT/SGPT) 23 Alkaline Phosphatase 84 B-Type Natriuretic Peptide 607 H Total Protein 7.1 Albumin 3.5 Globulin 3.60 H Albumin/Globulin Ratio 0.97 Digoxin Level < 0.4 L White Blood Count 5.5 # Red Blood Count 3.24 L Hemoglobin 9.6 L Hematocrit 33.0 L Mean Corpuscular Volume 101.9 H Mean Corpuscular Hemoglobin 29.6 Mean Corpuscular Hemoglobin Concent 29.1 L Red Cell Distribution Width 15.3 H Platelet Count 294 Mean Platelet Volume 10.4 Neutrophils % 60.7 Lymphocytes % 22.4 Monocytes % 10.2 Eosinophils % 5.6 Basophils % 0.7 Nucleated Red Blood Cells % 0.0 Neutrophils # 3.3 Lymphocytes # 1.2 Monocytes # 0.6 Eosinophils # 0.3 Basophils # 0.0 Nucleated Red Blood Cells # 0.0 Bedside Glucose 135 236 H Medications Medications Current Medications Miscellaneous Information 1 ea NOTE XX ; Start 03/02/17 at 00:30 Glucose (Glutose) 15 gm Q15M PRN PO DECREASED GLUCOSE; Start 03/02/17 at 00:30 Glucose (Glutose) 22.5 gm Q15M PRN PO DECREASED GLUCOSE; Start 03/02/17 at 00: 30 Dextrose (D50w Syringe) 25 ml Q15M PRN IV DECREASED GLUCOSE; Start 03/02/17 at 00:30 Dextrose (D50w Syringe) 50 ml Q15M PRN IV DECREASED GLUCOSE; Start 03/02/17 at 00:30 Glucagon (Glucagen) 1 mg Q15M PRN IM DECREASED GLUCOSE; Start 03/02/17 at 00:30 Glucose (Glutose) 15 gm Q15M PRN BUCCAL DECREASED GLUCOSE; Start 03/02/17 at 00 :30 Insulin Aspart (Novolog Insulin Pen) NOVOLOG *MILD* ALGORI... Q4 SC Last administered on 03/17/17 14:17; Admin Dose 3 UNIT; Start 03/06/17 at 05:00 Aspirin (Halfprin) 81 mg DAILY PO Last administered on 03/17/17 09:45; Admin Dose 81 MG; Start 03/07/17 at 09:00 Atorvastatin Calcium (Lipitor) 40 mg QHS PO Last administered on 03/16/17 20: 31; Admin Dose 40 MG; Start 03/06/17 at 21:00 Diclofenac Sodium (Voltaren) 75 mg DAILY PO Last administered on 03/17/17 09: 45; Admin Dose 75 MG; Start 03/07/17 at 09:00 Donepezil HCl (Aricept) 5 mg QHS PO Last administered on 03/16/17 20:32; Admin Dose 5 MG; Start 03/06/17 at 21:00 Morphine Sulfate (morphine) 3 mg Q4H PRN IV PAIN LEVEL 6-10 Last administered on 03/17/17 12:14; Admin Dose 3 MG; Start 03/12/17 at 00:00 Acetaminophen (Tylenol Tab) 325 mg Q4H PRN PO PAIN AND OR ELEVATED TEMP; Start 03/15/17 at 14:30 Pantoprazole (Protonix Tab) 40 mg BID@06,18 PO Last administered on 03/17/17 06:25; Admin Dose 40 MG; Start 03/15/17 at 18:00 Insulin Glargine (Lantus) 10 unit DAILY@20 SC Last administered on 03/16/17 20 :30; Admin Dose 10 UNIT; Start 03/15/17 at 20:00 Acetazolamide (Diamox) 500 mg DAILY IV Last administered on 03/17/17 09:46; Admin Dose 500 MG; Start 03/16/17 at 09:00; Stop 03/18/17 at 08:59 Metoprolol Tartrate (Lopressor) 25 mg QID PO Last administered on 03/17/17 14: 14; Admin Dose 25 MG; Start 03/16/17 at 09:00 Potassium Chloride (Potassium Chloride Pwd/Soln) 40 meq DAILY PO Last administered on 03/17/17 09:45; Admin Dose 40 MEQ; Start 03/17/17 at 09:00 SUZY ISABEL NP Mar 17, 2017 16:06
--- NOTE | 2017-03-17 16:39 | PN ---
Date/Time of Note Date/Time of Note DATE: 03/17/17 TIME: 16:37 Assessment/Plan VTE Prophylaxis VTE Prophylaxis Intervention: SCD's Lines/Catheters IV Catheter Type (from Nrsg): Saline Lock Urinary Cath still in place: Yes Reason Cath still needed: other (indicate) (RN preference) Assessment/Plan Assessment/Plan 86 yo F with dementia admitted from facility for acute hypoxic respiratory failure and sepsis: likely 2/2 aspiration pneumonia. EXTUBATED 03/08. 1. acute hypoxic respiratory failure: 2/2 aspiration pna, now extubated. f/u pulmonology recs, duoneb's prn;sp abx CTA 2 weks ago without evidence of PE. No PE this time. broncholitis resolved 2. Severe sepsis: from aspiration pna, ID following. Likely secondary to respiratory infection. sp abx 3. Tachycardia: afib with RVR vs sinus tach (fluctuates) -cont bb. -ATC resumed 4. suspected fungal esophagitis: sp antifungal 5. diabetes mellitus: Continue insulin sliding scale. added lantus 10 as taking PO 6. History of essential hypertension: ARB on hold 7. Questionable GI bleed: sp EGD 7.15 , +gastritis -cont PO PPI - ST following 8. DVT and GI prophylaxis: SCDs, Protonix 9. hyperthyroid - 7.13 labs notable for hyperthyroid (TSH low, t4 high)--> consider post discharge fu with PCP 10. hypernatremia - resolved Code status: full code full code at this time transfer to tele ARU cs placed critical care time: 30minutes Subjective 24 Hr Interval Summary Free Text/Dictation Pt resting this AM. Still on high flow NC Exam/Review of Systems Vital Signs Vitals Vital Signs Date Time Temp Pulse Resp B/P Pulse Ox O2 Delivery O2 Flow Rate FiO2 03/17/17 16:00 63 03/17/17 13:35 92 60 03/17/17 11:20 15 Non Rebreather 03/17/17 11:00 118/43 03/17/17 08:00 98.4 03/15/17 12:00 10.0 Intake and Output 03/16/17 03/16/17 03/17/17 15:00 23:00 07:00 Intake Total 120 ml 100 ml 30 ml Output Total 245 ml 240 ml 255 ml Balance -125 ml -140 ml -225 ml Exam nad lungs clear anteriorly no mrg abd soft no rashes CTA without PE, broncholitis resolved Results Result Diagram: 03/17/17 0555 03/17/17 0548 Results 24 hrs Laboratory Tests Test 03/16/17 17:12 03/16/17 20:27 03/17/17 01:11 03/17/17 05:13 Bedside Glucose 156 175 168 132 Test 03/17/17 05:48 03/17/17 05:55 03/17/17 09:31 03/17/17 14:10 Sodium Level 148 H Potassium Level 3.8 Chloride Level 97 Carbon Dioxide Level 40 H Anion Gap 15 Blood Urea Nitrogen 18 Creatinine 0.87 Glucose Level 150 Calcium Level 9.4 Magnesium Level 2.0 Total Bilirubin 0.2 Direct Bilirubin 0.00 Indirect Bilirubin 0.2 Aspartate Amino Transf (AST/SGOT) 20 Alanine Aminotransferase (ALT/SGPT) 23 Alkaline Phosphatase 84 B-Type Natriuretic Peptide 607 H Total Protein 7.1 Albumin 3.5 Globulin 3.60 H Albumin/Globulin Ratio 0.97 Digoxin Level < 0.4 L White Blood Count 5.5 # Red Blood Count 3.24 L Hemoglobin 9.6 L Hematocrit 33.0 L Mean Corpuscular Volume 101.9 H Mean Corpuscular Hemoglobin 29.6 Mean Corpuscular Hemoglobin Concent 29.1 L Red Cell Distribution Width 15.3 H Platelet Count 294 Mean Platelet Volume 10.4 Neutrophils % 60.7 Lymphocytes % 22.4 Monocytes % 10.2 Eosinophils % 5.6 Basophils % 0.7 Nucleated Red Blood Cells % 0.0 Neutrophils # 3.3 Lymphocytes # 1.2 Monocytes # 0.6 Eosinophils # 0.3 Basophils # 0.0 Nucleated Red Blood Cells # 0.0 Bedside Glucose 135 236 H Medications Medications Current Medications Miscellaneous Information 1 ea NOTE XX ; Start 03/02/17 at 00:30 Glucose (Glutose) 15 gm Q15M PRN PO DECREASED GLUCOSE; Start 03/02/17 at 00:30 Glucose (Glutose) 22.5 gm Q15M PRN PO DECREASED GLUCOSE; Start 03/02/17 at 00: 30 Dextrose (D50w Syringe) 25 ml Q15M PRN IV DECREASED GLUCOSE; Start 03/02/17 at 00:30 Dextrose (D50w Syringe) 50 ml Q15M PRN IV DECREASED GLUCOSE; Start 03/02/17 at 00:30 Glucagon (Glucagen) 1 mg Q15M PRN IM DECREASED GLUCOSE; Start 03/02/17 at 00:30 Glucose (Glutose) 15 gm Q15M PRN BUCCAL DECREASED GLUCOSE; Start 03/02/17 at 00 :30 Insulin Aspart (Novolog Insulin Pen) NOVOLOG *MILD* ALGORI... Q4 SC Last administered on 03/17/17 14:17; Admin Dose 3 UNIT; Start 03/06/17 at 05:00 Aspirin (Halfprin) 81 mg DAILY PO Last administered on 03/17/17 09:45; Admin Dose 81 MG; Start 03/07/17 at 09:00 Atorvastatin Calcium (Lipitor) 40 mg QHS PO Last administered on 03/16/17 20: 31; Admin Dose 40 MG; Start 03/06/17 at 21:00 Diclofenac Sodium (Voltaren) 75 mg DAILY PO Last administered on 03/17/17 09: 45; Admin Dose 75 MG; Start 03/07/17 at 09:00 Donepezil HCl (Aricept) 5 mg QHS PO Last administered on 03/16/17 20:32; Admin Dose 5 MG; Start 03/06/17 at 21:00 Morphine Sulfate (morphine) 3 mg Q4H PRN IV PAIN LEVEL 6-10 Last administered on 03/17/17 12:14; Admin Dose 3 MG; Start 03/12/17 at 00:00 Acetaminophen (Tylenol Tab) 325 mg Q4H PRN PO PAIN AND OR ELEVATED TEMP; Start 03/15/17 at 14:30 Pantoprazole (Protonix Tab) 40 mg BID@06,18 PO Last administered on 03/17/17 06:25; Admin Dose 40 MG; Start 03/15/17 at 18:00 Insulin Glargine (Lantus) 10 unit DAILY@20 SC Last administered on 03/16/17 20 :30; Admin Dose 10 UNIT; Start 03/15/17 at 20:00 Acetazolamide (Diamox) 500 mg DAILY IV Last administered on 03/17/17 09:46; Admin Dose 500 MG; Start 03/16/17 at 09:00; Stop 03/18/17 at 08:59 Metoprolol Tartrate (Lopressor) 25 mg QID PO Last administered on 03/17/17 14: 14; Admin Dose 25 MG; Start 03/16/17 at 09:00 Potassium Chloride (Potassium Chloride Pwd/Soln) 40 meq DAILY PO Last administered on 03/17/17 09:45; Admin Dose 40 MEQ; Start 03/17/17 at 09:00 NICK BROWN MD Mar 17, 2017 16:39
[2017-03-17] MEDS: DONEPEZIL 5 MG TAB PO SCH (21:40)
[2017-03-17] MEDS: ATORVASTATIN 40 MG TAB PO SCH (21:40)
[2017-03-17] MEDS: INSULIN GLARGINE [LANtus] 3 ML PEN SC SCH (21:42)
[2017-03-18] VITALS (24 sets, daily range): BP systolic 89–141; BP diastolic 34–104; PULSE 54–76; RESP 11–27
[2017-03-18] MEDS: morphine 4 MG/ML VIAL IV PRN (01:28)
[2017-03-18] MEDS: ACCU-CHEK XX SCH (01:34)
[2017-03-18] MEDS: PANTOPRAZOLE (EC) 40 MG TAB PO SCH ×2 (06:13→18:15)
[2017-03-18] MEDS: INSULIN ASPART [NOVOLOG] 3 ML PEN SC SCH ×4 (07:53→21:00)
[2017-03-18] MEDS: DICLOFENAC (EC) 75 MG TAB PO SCH (08:09)
[2017-03-18] MEDS: METOPROLOL 25 MG TAB PO SCH ×4 (08:09→22:09)
[2017-03-18] MEDS: POTASSIUM CHLORIDE 20 MEQ POWDER FOR ORAL SOLN PO SCH (08:09)
[2017-03-18] MEDS: ASPIRIN (EC) 81 MG TAB PO SCH (08:09)
--- NOTE | 2017-03-18 11:09 | PN ---
Date/Time of Note Date/Time of Note DATE: 03/18/17 TIME: 11:09 Assessment/Plan VTE Prophylaxis VTE Prophylaxis Intervention: SCD's Lines/Catheters IV Catheter Type (from Nrsg): Saline Lock Urinary Cath still in place: Yes Reason Cath still needed: other (indicate) (nurse demand) Assessment/Plan Assessment/Plan 86 yo F with dementia admitted from facility for acute hypoxic respiratory failure and sepsis: likely 2/2 aspiration pneumonia. EXTUBATED 03/08. 1. acute hypoxic respiratory failure: 2/2 aspiration pna, now extubated. duoneb's prn;sp abx repeat CTA without e/o PE or new infection. Unclear why pt requiring high flow NC 2. Severe sepsis: from aspiration pna, ID following. Likely secondary to respiratory infection. sp abx 3. Tachycardia: afib with RVR vs sinus tach (fluctuates) -cont bb. -ATC resumed 4. suspected fungal esophagitis: sp antifungal 5. diabetes mellitus: Continue insulin sliding scale. increased lantus to 15 units, cont SSI 6. History of essential hypertension: ARB on hold 7. Questionable GI bleed: sp EGD 7.15 , +gastritis -cont PO PPI - ST following 8. DVT and GI prophylaxis: SCDs, Protonix 9. hyperthyroid : 7.13 labs notable for hyperthyroid (TSH low, t4 high)--> consider post discharge fu with PCP 10. hypernatremia - resolved Code status: full code. As per notes from yesterday bioethics meeting, sw and palliative still trying to reach pt's family in [facility] transfer to tele once on regular NC ARU cs placed critical care time: 30minutes Subjective 24 Hr Interval Summary Free Text/Dictation Clinical status largely unchanged. Still requiring large amounts of FIO2 Exam/Review of Systems Vital Signs Vitals Vital Signs Date Time Temp Pulse Resp B/P Pulse Ox O2 Delivery O2 Flow Rate FiO2 03/18/17 08:50 99 55 03/18/17 08:00 98.3 70 16 136/54 High Flow 03/15/17 12:00 10.0 Intake and Output 03/17/17 03/17/17 03/18/17 15:00 23:00 07:00 Intake Total 450 ml 130 ml Output Total 345 ml 340 ml 410 ml Balance 105 ml -210 ml -410 ml Exam nad, pleasant no mrg lungs clear anteriorly abd soft no rashes CTA from yesterday reviewed yesterday Results Result Diagram: 03/17/17 0555 03/17/17 0548 Results 24 hrs Laboratory Tests Test 03/17/17 14:10 03/17/17 17:50 03/17/17 21:40 03/18/17 01:33 Bedside Glucose 236 H 219 182 201 Test 03/18/17 07:48 Bedside Glucose 166 Medications Medications Current Medications Miscellaneous Information 1 ea NOTE XX ; Start 03/02/17 at 00:30 Glucose (Glutose) 15 gm Q15M PRN PO DECREASED GLUCOSE; Start 03/02/17 at 00:30 Glucose (Glutose) 22.5 gm Q15M PRN PO DECREASED GLUCOSE; Start 03/02/17 at 00: 30 Dextrose (D50w Syringe) 25 ml Q15M PRN IV DECREASED GLUCOSE; Start 03/02/17 at 00:30 Dextrose (D50w Syringe) 50 ml Q15M PRN IV DECREASED GLUCOSE; Start 03/02/17 at 00:30 Glucagon (Glucagen) 1 mg Q15M PRN IM DECREASED GLUCOSE; Start 03/02/17 at 00:30 Glucose (Glutose) 15 gm Q15M PRN BUCCAL DECREASED GLUCOSE; Start 03/02/17 at 00 :30 Aspirin (Halfprin) 81 mg DAILY PO Last administered on 03/18/17 08:09; Admin Dose 81 MG; Start 03/07/17 at 09:00 Atorvastatin Calcium (Lipitor) 40 mg QHS PO Last administered on 03/17/17 21: 40; Admin Dose 40 MG; Start 03/06/17 at 21:00 Diclofenac Sodium (Voltaren) 75 mg DAILY PO Last administered on 03/18/17 08: 09; Admin Dose 75 MG; Start 03/07/17 at 09:00 Donepezil HCl (Aricept) 5 mg QHS PO Last administered on 03/17/17 21:40; Admin Dose 5 MG; Start 03/06/17 at 21:00 Morphine Sulfate (morphine) 3 mg Q4H PRN IV PAIN LEVEL 6-10 Last administered on 03/18/17 01:28; Admin Dose 3 MG; Start 03/12/17 at 00:00 Acetaminophen (Tylenol Tab) 325 mg Q4H PRN PO PAIN AND OR ELEVATED TEMP; Start 03/15/17 at 14:30 Pantoprazole (Protonix Tab) 40 mg BID@06,18 PO Last administered on 03/18/17 06:13; Admin Dose 40 MG; Start 03/15/17 at 18:00 Metoprolol Tartrate (Lopressor) 25 mg QID PO Last administered on 03/18/17 08: 09; Admin Dose 25 MG; Start 03/16/17 at 09:00 Potassium Chloride (Potassium Chloride Pwd/Soln) 40 meq DAILY PO Last administered on 03/18/17 08:09; Admin Dose 40 MEQ; Start 03/17/17 at 09:00 Insulin Glargine (Lantus) 15 unit DAILY@20 SC Last administered on 03/17/17 21 :42; Admin Dose 15 UNIT; Start 03/17/17 at 20:00 Diagnostic Test (Pha) (Accu-Chek) 1 ea 02 XX Last administered on 03/18/17 01: 34; Admin Dose 1 EA; Start 03/18/17 at 02:00 NICK BROWN MD Mar 18, 2017 11:09
--- NOTE | 2017-03-18 14:09 | CONS ---
Date/Time of Note Date/Time of Note DATE: 03/18/17 TIME: 14:06 Consult Date/Type/Reason Admit Date/Time Mar 01, 2017 at 20:20 Initial Consult Date 03/02/17 Type of Consultation: Pulmonary Ordering Provider: MICHELLE MORENO Subjective Status post CT chest. Findings noted. Remains awake alert mild confusion continues Vapotherm oxygen. Objective Vital Signs Date Time Temp Pulse Resp B/P Pulse Ox O2 Delivery O2 Flow Rate FiO2 03/18/17 13:00 65 13 124/56 94 High Flow 03/18/17 12:00 97.3 03/18/17 08:50 55 03/15/17 12:00 10.0 Intake and Output 03/17/17 03/17/17 03/18/17 15:00 23:00 07:00 Intake Total 450 ml 130 ml Output Total 345 ml 340 ml 410 ml Balance 105 ml -210 ml -410 ml Exam PHYSICAL EXAMINATION GENERAL: Elderly lady on high flow O2. VITAL SIGNS: see below. HEENT: Pupils equal, round, and reactive to light. CARDIAC: S1, S2, 1/6 systolic ejection murmur CHEST: Diminished air entry bilaterally. ABDOMEN: Mildly distended. Bowel sounds present no guarding or rebound EXTREMITIES: No cyanosis, clubbing edema +1 NEUROLOGIC: Generalized weakness Results/Medications Result Diagram: 03/17/17 0555 03/17/17 0548 Results 24 hrs Laboratory Tests Test 03/17/17 14:10 03/17/17 17:50 03/17/17 21:40 03/18/17 01:33 Bedside Glucose 236 H 219 182 201 Test 03/18/17 07:48 03/18/17 12:58 Bedside Glucose 166 159 Medications Current Medications Miscellaneous Information 1 ea NOTE XX ; Start 03/02/17 at 00:30 Glucose (Glutose) 15 gm Q15M PRN PO DECREASED GLUCOSE; Start 03/02/17 at 00:30 Glucose (Glutose) 22.5 gm Q15M PRN PO DECREASED GLUCOSE; Start 03/02/17 at 00: 30 Dextrose (D50w Syringe) 25 ml Q15M PRN IV DECREASED GLUCOSE; Start 03/02/17 at 00:30 Dextrose (D50w Syringe) 50 ml Q15M PRN IV DECREASED GLUCOSE; Start 03/02/17 at 00:30 Glucagon (Glucagen) 1 mg Q15M PRN IM DECREASED GLUCOSE; Start 03/02/17 at 00:30 Glucose (Glutose) 15 gm Q15M PRN BUCCAL DECREASED GLUCOSE; Start 03/02/17 at 00 :30 Aspirin (Halfprin) 81 mg DAILY PO Last administered on 03/18/17 08:09; Admin Dose 81 MG; Start 03/07/17 at 09:00 Atorvastatin Calcium (Lipitor) 40 mg QHS PO Last administered on 03/17/17 21: 40; Admin Dose 40 MG; Start 03/06/17 at 21:00 Diclofenac Sodium (Voltaren) 75 mg DAILY PO Last administered on 03/18/17 08: 09; Admin Dose 75 MG; Start 03/07/17 at 09:00 Donepezil HCl (Aricept) 5 mg QHS PO Last administered on 03/17/17 21:40; Admin Dose 5 MG; Start 03/06/17 at 21:00 Morphine Sulfate (morphine) 3 mg Q4H PRN IV PAIN LEVEL 6-10 Last administered on 03/18/17 01:28; Admin Dose 3 MG; Start 03/12/17 at 00:00 Acetaminophen (Tylenol Tab) 325 mg Q4H PRN PO PAIN AND OR ELEVATED TEMP; Start 03/15/17 at 14:30 Pantoprazole (Protonix Tab) 40 mg BID@06,18 PO Last administered on 03/18/17 06:13; Admin Dose 40 MG; Start 03/15/17 at 18:00 Metoprolol Tartrate (Lopressor) 25 mg QID PO Last administered on 03/18/17 13: 01; Admin Dose 25 MG; Start 03/16/17 at 09:00 Potassium Chloride (Potassium Chloride Pwd/Soln) 40 meq DAILY PO Last administered on 03/18/17 08:09; Admin Dose 40 MEQ; Start 03/17/17 at 09:00 Insulin Glargine (Lantus) 15 unit DAILY@20 SC Last administered on 03/17/17 21 :42; Admin Dose 15 UNIT; Start 03/17/17 at 20:00 Diagnostic Test (Pha) (Accu-Chek) 1 ea 02 XX Last administered on 03/18/17 01: 34; Admin Dose 1 EA; Start 03/18/17 at 02:00 Assessment/Plan Chief Complaint/Hosp Course Assessment 1. Hypoxemic and hypercapnic respiratory failure likely secondary to community- acquired pneumonia, improved infiltrates but evidence of pulmonary edema on chest CT. 2. Atrial fibrillation with rapid ventricular rate likely exacerbated by hypoxemia and cardiac ischemia 3. 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 Status post septic shock secondary to above 4. Erosive gastritis on EGD findings. Nasogastric tube has been removed per GI recommendations 6. Delirium. Likely toxic metabolic. Plan 1. Lasix twice daily 2. Broad-spectrum antibiotic coverage 3. Aspiration precautions 4. Vapotherm oxygen 5. Continue insulin as needed. 6. May require reintubation if fails diuretics and supplemental O2 bioethics evaluation 7. Continue rate control per cardiology. P.o. medications if stable to swallow. 8. CT angiogram shows no evidence of pulmonary embolism, mild pleural effusion and mild congestion. No other abnormalities. Disposition critical care time 40 minutes discussed with primary team and nursing staff Problems: MARY ALY MD, [facility] Mar 18, 2017 14:09
--- NOTE | 2017-03-18 15:49 | CONS ---
Date/Time of Note Date/Time of Note DATE: 03/18/17 TIME: 15:45 Assessment/Plan Assessment/Plan Chief Complaint/Hosp Course ID PROGRESS NOTE TOTAL ABX DAY => OFF ABX DAY #8 * s/p 11 DAYS ABX: ZOSYN, Vanco IV, Diflucan 24H INTERVAL SUMMARY/HOSPITAL COURSE * Awake, confused, cooperative, generalized weakness, no fevers, VSS, Vapotherm * 03/17 CXR: 1. Persistent, but interval decreased pulmonary vascular congestion and interstitial edema. 2. Improved aeration of the left lung base.3. No new consolidation. * CT CXT 03/17/17 IMPRESSION:No evidence of acute pulmonary embolism.Near complete resolution of multifocal bronchiolitis. Residual bronchial wall thickening is seen within the lung bases and has decreased. Small bilateral pleural effusions. * PTx NOTEs: "easily fatiguing, B LE weakness L>R and desaturation after gait. " PHYSICAL EXAMINATION: GENERAL: No fevers, VSS, NAD HEENT: Unremarkable NECK: Trach midline, supple CHEST: Rise symmetrical without dyspnea on supplemental O2 via DM CV: Radial pulse RRR, mild tachy on tele ABDOMEN: Soft, nondistended EXTREMITIES: Warm, dry, intact ID ASSESSMENT: 86 yo F s/PMHx dementia w/memory impairment admit with: 1. s/p Sepsis with shock and persistent leukocytosis==>on admission due to #2 = RESOLVED * No fevers, WBC normalizing, off pressors, tachycardia resolved 2. Multifocal bronchiolitis (+/-) ASPIRATION PNA on admission = STABLE S/P 11 DAYS IV ABX * ASP PNA risk factors: Age, ?dementia, Esophagitis suspect GERD possible silent Aspiration syndrome * CT CXT 03/17/17 IMPRESSION:No evidence of acute pulmonary embolism.Near complete resolution of multifocal bronchiolitis. Residual bronchial wall thickening is seen within the lung bases and has decreased. Small bilateral pleural effusions. 2. Mild cardiomegaly and aortic atherosclerosis. 3. Acute hypoxic/hypercapnic respiratory failure => s/p oral intubation/ mechanical Vent =>EXTUBATED 03/08/17 * Stable on supplemental O2 via Vapotherm 4. s/p Upper GIB -> s/p EGD 03/04/17 revealed (+) Erosive esophagitis w/ Erosive fundal gastritis, related to NG tube trauma. Nodular gastritis * s/p empiric Diflucan for concern esophagitis * 03/04 PATHO REPORT: Gastric biopsy:-- Reactive gastropathy, mild, with focal early acute mucosal erosion.-- No Helicobacter organisms are identified in a Giemsa stain (positive control concurrently reviewed).-- There is no evidence of malignancy 5. Non-ST elevation SD in setting sepsis + GIB 6. Parosysmal Afib w/RVR => Amiodarone 7. HTN Heart Disease w/diastolic HF * 2D ECHO: Mild concentric LVH w/ EF ~55 %l Stage I diastolic dysfunction. 8. Diabetes (-) MRSA Nares screen INVASIVES: L-SubC TLC, FC ABX ALLERGY: KNDA CURRENT ABX: => OFF ABX DAY #7 s/p 11 DAYS ABX: ZOSYN, Vanco IV, Diflucan ID PLAN: * Continue to monitor the patient OFF ABX, with repeat MICRO PRN clinical indicators of recurrent sepsis * CT 03/17 Near complete resolution of multifocal bronchiolitis. CXR -> residual pulm edema. * Aspiration precautions, follow speech Tx recommendations * ID will continue to monitor - TNS to tele ? . Problems: Consultation Date/Type/Reason Admit Date/Time Mar 01, 2017 at 20:20 Initial Consult Date 03/04/17 Type of Consultation: ID Referring Provider: MICHELLE MORENO Exam/Review of Systems Vital Signs Vitals Vital Signs Date Time Temp Pulse Resp B/P Pulse Ox O2 Delivery O2 Flow Rate FiO2 03/18/17 13:00 65 13 124/56 94 High Flow 03/18/17 12:00 97.3 03/18/17 11:30 55 03/15/17 12:00 10.0 Intake and Output 03/17/17 03/17/17 03/18/17 15:00 23:00 07:00 Intake Total 450 ml 130 ml Output Total 345 ml 340 ml 410 ml Balance 105 ml -210 ml -410 ml Results Result Diagram: 03/17/17 0555 03/17/17 0548 Results 24 hrs Laboratory Tests Test 03/17/17 17:50 03/17/17 21:40 03/18/17 01:33 03/18/17 07:48 Bedside Glucose 219 182 201 166 Test 03/18/17 12:58 Bedside Glucose 159 Medications Medications Current Medications Miscellaneous Information 1 ea NOTE XX ; Start 03/02/17 at 00:30 Glucose (Glutose) 15 gm Q15M PRN PO DECREASED GLUCOSE; Start 03/02/17 at 00:30 Glucose (Glutose) 22.5 gm Q15M PRN PO DECREASED GLUCOSE; Start 03/02/17 at 00: 30 Dextrose (D50w Syringe) 25 ml Q15M PRN IV DECREASED GLUCOSE; Start 03/02/17 at 00:30 Dextrose (D50w Syringe) 50 ml Q15M PRN IV DECREASED GLUCOSE; Start 03/02/17 at 00:30 Glucagon (Glucagen) 1 mg Q15M PRN IM DECREASED GLUCOSE; Start 03/02/17 at 00:30 Glucose (Glutose) 15 gm Q15M PRN BUCCAL DECREASED GLUCOSE; Start 03/02/17 at 00 :30 Aspirin (Halfprin) 81 mg DAILY PO Last administered on 03/18/17 08:09; Admin Dose 81 MG; Start 03/07/17 at 09:00 Atorvastatin Calcium (Lipitor) 40 mg QHS PO Last administered on 03/17/17 21: 40; Admin Dose 40 MG; Start 03/06/17 at 21:00 Diclofenac Sodium (Voltaren) 75 mg DAILY PO Last administered on 03/18/17 08: 09; Admin Dose 75 MG; Start 03/07/17 at 09:00 Donepezil HCl (Aricept) 5 mg QHS PO Last administered on 03/17/17 21:40; Admin Dose 5 MG; Start 03/06/17 at 21:00 Morphine Sulfate (morphine) 3 mg Q4H PRN IV PAIN LEVEL 6-10 Last administered on 03/18/17 01:28; Admin Dose 3 MG; Start 03/12/17 at 00:00 Acetaminophen (Tylenol Tab) 325 mg Q4H PRN PO PAIN AND OR ELEVATED TEMP; Start 03/15/17 at 14:30 Pantoprazole (Protonix Tab) 40 mg BID@,18 PO Last administered on 03/18/17 06:13; Admin Dose 40 MG; Start 03/15/17 at 18:00 Metoprolol Tartrate (Lopressor) 25 mg QID PO Last administered on 03/18/17 13: 01; Admin Dose 25 MG; Start 03/16/17 at 09:00 Potassium Chloride (Potassium Chloride Pwd/Soln) 40 meq DAILY PO Last administered on 03/18/17 08:09; Admin Dose 40 MEQ; Start 03/17/17 at 09:00 Insulin Glargine (Lantus) 15 unit DAILY@20 SC Last administered on 03/17/17 21 :42; Admin Dose 15 UNIT; Start 03/17/17 at 20:00 Diagnostic Test (Pha) (Accu-Chek) 1 ea 02 XX Last administered on 03/18/17 01: 34; Admin Dose 1 EA; Start 03/18/17 at 02:00 SUZY ISABEL NP Mar 18, 2017 15:49
--- NOTE | 2017-03-18 17:11 | PN ---
Date/Time of Note Date/Time of Note DATE: 03/18/17 TIME: 17:09 Assessment/Plan VTE Prophylaxis VTE Prophylaxis Intervention: other Lines/Catheters IV [facility] Saline Lock Urinary Cath still in place: Yes Reason Cath still needed: other (indicate) Assessment/Plan Chief Complaint/Hosp Course 1. P afib/ flutter with RVR: 2. acute hypoxemic respiratory failure: extubated now but still very hypoxemic 3. + troponin: c.w NSTEMI due to demand ischemia due to above 4. DM and severely elevated glucose: controlled with insulin 5. dyslipidemia 6. pneumonia/ sepsis 7. s/p shock : appear to be related to sepsis: currently off of levophed 8. hx memory impairment 9. anemia and GI bleed: stable now 10. hypo K. . will add eliquis 2.5 bid now that ok with GI AND HOLD ASA off of plavix due to above cardizem drip prn cont METOPROLOL DM Control with insulin echo shows normal EF replace lytes including K and Mg prn. S/P diomox labs in AM will f/u prn over the weekend. please contact for any questions. THANK YOU. Problems: Subjective 24 Hr Interval Summary Free Text/Dictation CARDIOLOGY FOLLOW UP NOTE/ critical care note d/w staff in ICU and rhythm was reviewed. pt has remained in NSR pt is EXTUBATED 03/08 no more bleeding is reported. she denies any chest pain to me but confused. pt has been less hypoxemic but still requires high flow O2 Pt is less confused. OBJECTIVE: General: no acute distress HEENT: NC/AT. pupils are constricted. round. NECK: NO JVD. no stridor. CV: irregularly irregular. systolic murmur; no gallop or rubs. PULM: + diffuse rhonchi. GI: SOFT, NT, ND, no rebound or guarding Extremity: trace B/L LE edema. no clubbing. neuro: sleepy Psych: calm now. rectal: deferred : deferred ECG 03/17/17 NSR Exam/Review of Systems Vital Signs Vitals Vital Signs Date Time Temp Pulse Resp B/P Pulse Ox O2 Delivery O2 Flow Rate FiO2 03/18/17 15:00 96 50 03/18/17 13:00 65 13 124/56 High Flow 03/18/17 12:00 97.3 03/15/17 12:00 10.0 Intake and Output 03/17/17 03/17/17 03/18/17 15:00 23:00 07:00 Intake Total 450 ml 130 ml Output Total 345 ml 340 ml 410 ml Balance 105 ml -210 ml -410 ml Results Result Diagram: 03/17/17 0555 03/17/17 0548 Results 24 hrs Laboratory Tests Test 03/17/17 17:50 03/17/17 21:40 03/18/17 01:33 03/18/17 07:48 Bedside Glucose 219 182 201 166 Test 03/18/17 12:58 Bedside Glucose 159 Medications Medications Current Medications Miscellaneous Information 1 ea NOTE XX ; Start 03/02/17 at 00:30 Glucose (Glutose) 15 gm Q15M PRN PO DECREASED GLUCOSE; Start 03/02/17 at 00:30 Glucose (Glutose) 22.5 gm Q15M PRN PO DECREASED GLUCOSE; Start 03/02/17 at 00: 30 Dextrose (D50w Syringe) 25 ml Q15M PRN IV DECREASED GLUCOSE; Start 03/02/17 at 00:30 Dextrose (D50w Syringe) 50 ml Q15M PRN IV DECREASED GLUCOSE; Start 03/02/17 at 00:30 Glucagon (Glucagen) 1 mg Q15M PRN IM DECREASED GLUCOSE; Start 03/02/17 at 00:30 Glucose (Glutose) 15 gm Q15M PRN BUCCAL DECREASED GLUCOSE; Start 03/02/17 at 00 :30 Aspirin (Halfprin) 81 mg DAILY PO Last administered on 03/18/17 08:09; Admin Dose 81 MG; Start 03/07/17 at 09:00 Atorvastatin Calcium (Lipitor) 40 mg QHS PO Last administered on 03/17/17 21: 40; Admin Dose 40 MG; Start 03/06/17 at 21:00 Diclofenac Sodium (Voltaren) 75 mg DAILY PO Last administered on 03/18/17 08: 09; Admin Dose 75 MG; Start 03/07/17 at 09:00 Donepezil HCl (Aricept) 5 mg QHS PO Last administered on 03/17/17 21:40; Admin Dose 5 MG; Start 03/06/17 at 21:00 Morphine Sulfate (morphine) 3 mg Q4H PRN IV PAIN LEVEL 6-10 Last administered on 03/18/17 01:28; Admin Dose 3 MG; Start 03/12/17 at 00:00 Acetaminophen (Tylenol Tab) 325 mg Q4H PRN PO PAIN AND OR ELEVATED TEMP; Start 03/15/17 at 14:30 Pantoprazole (Protonix Tab) 40 mg BID@06,18 PO Last administered on 03/18/17 06:13; Admin Dose 40 MG; Start 03/15/17 at 18:00 Metoprolol Tartrate (Lopressor) 25 mg QID PO Last administered on 03/18/17 13: 01; Admin Dose 25 MG; Start 03/16/17 at 09:00 Potassium Chloride (Potassium Chloride Pwd/Soln) 40 meq DAILY PO Last administered on 03/18/17 08:09; Admin Dose 40 MEQ; Start 03/17/17 at 09:00 Insulin Glargine (Lantus) 15 unit DAILY@20 SC Last administered on 03/17/17 21 :42; Admin Dose 15 UNIT; Start 03/17/17 at 20:00 Diagnostic Test (Pha) (Accu-Chek) 1 ea 02 XX Last administered on 03/18/17 01: 34; Admin Dose 1 EA; Start 03/18/17 at 02:00 TYREE MCKOY MD Mar 18, 2017 17:11
[2017-03-18] MEDS: FUROSEMIDE 40 MG INJ IV SCH (18:15)
--- NOTE | 2017-03-18 18:59 | RADRPT ---
Vent Rate: 67 bpm RR Interval: 0 msec WV Interval: 168 msec QRS Duration: 72 msec QT Interval: 374 msec QTC Interval: 395 msec P-R-T Jeff: 65 - -1 - 148 degrees Normal sinus rhythm Nonspecific T wave abnormality Abnormal ECG Electronically Signed By: Tien Oconnor [id number]
[2017-03-18] MEDS: INSULIN GLARGINE [LANtus] 3 ML PEN SC SCH (20:12)
[2017-03-18] MEDS: DONEPEZIL 5 MG TAB PO SCH (22:09)
[2017-03-18] MEDS: ATORVASTATIN 40 MG TAB PO SCH (22:10)
[2017-03-18] MEDS: APIXABAN 5 MG TABLET PO SCH (22:10)
[2017-03-19] VITALS (30 sets, daily range): BP systolic 103–154; BP diastolic 36–117; PULSE 61–79; RESP 13–21
[2017-03-19] MEDS: ACCU-CHEK XX SCH (02:00)
[2017-03-19 05:13] LABS: BASOPHILS % 0.6 % (0.0-2.0); EOSINOPHILS # 0.3 10^3/ul (0.0-0.5); EOSINOPHILS % 5.3 % (0.0-7.0); HEMATOCRIT 32.3 % (37.0-47.0); HEMOGLOBIN 9.7 g/dl (12.0-16.0); LYMPHOCYTES # 1.4 10^3/ul (0.8-2.9); LYMPHOCYTES % 29.9 % (15.0-51.0); MEAN PLATELET VOLUME 10.4 fl (7.4-10.4); MONOCYTE # 0.5 10^3/ul (0.3-0.9); MONOCYTES % 9.9 % (0.0-11.0); NEUTROPHIL # 2.6 10^3/ul (1.6-7.5); NEUTROPHILS % 53.9 % (39.0-77.0); PLATELET COUNT 260 10^3/UL (140-415); RED BLOOD COUNT 3.23 10^6/ul (4.20-5.40); RED CELL DISTRIBUTION WIDTH 15.2 % (11.5-14.5); WHITE BLOOD COUNT 4.8 10^3/ul (4.8-10.8)
[2017-03-19 05:31] LABS: ALBUMIN 3.6 g/dl (3.3-4.9); ALBUMIN/GLOBULIN RATIO 0.97; BILIRUBIN,INDIRECT 0.2 mg/dl (0-1.1); BILIRUBIN,TOTAL 0.2 mg/dl (0.2-1.3); CALCIUM 9.5 mg/dl (8.4-10.2); CREATININE 0.9 mg/dl (0.44-1.00); POTASSIUM 3.7 mmol/L (3.5-5.1); TOTAL PROTEIN 7.3 g/dl (6.1-8.1)
[2017-03-19 05:41] LABS: MAGNESIUM 1.7 mg/dl (1.7-2.5); PHOSPHORUS 3.5 mg/dl (2.5-4.9)
[2017-03-19] MEDS: PANTOPRAZOLE (EC) 40 MG TAB PO SCH ×2 (06:35→17:19)
[2017-03-19] MEDS: FUROSEMIDE 40 MG INJ IV SCH ×2 (06:35→18:42)
[2017-03-19] MEDS: INSULIN ASPART [NOVOLOG] 3 ML PEN SC SCH ×4 (07:35→21:00)
[2017-03-19 07:56] LABS: AADO2 Arterial 229.7 mmHg (7.0-24.0); Allen Test ACCEPTAB; Arterial Base Excess 6.5 mmol/L (-3.0-3); Arterial COHb 0.3 % (0.0-3.0); Arterial Fraction of Oxyhgb 93.3 % (93.0-99.0); Arterial HCO3 32.4 mmol/L (22.0-26.0); Arterial MetHb 0.3 % (0.0-1.5); Arterial Total Hemglobin 10.7 g/dl (12.0-18.0); MODE HFNC
--- NOTE | 2017-03-19 08:09 | RADRPT ---
PROCEDURE: XR Chest. CLINICAL INDICATION: Respiratory distress. TECHNIQUE: AP view of the chest was performed. COMPARISON: March 17, 2017 CTA chest and plain film FINDINGS: The heart size is stable. No pneumothorax or pleural effusion. There is persistent mild vascular c ongestion. IMPRESSION: Mild vascular congestion. Overall, no interval change. RPTAT: QQ. .Priscilla Lee MD, MD Date Time Electronically viewed and signed by .Priscilla Lee MD, MD on 03/19/2017 08:09 .F/
[2017-03-19] MEDS: POTASSIUM CHLORIDE 20 MEQ POWDER FOR ORAL SOLN PO SCH (08:18)
[2017-03-19] MEDS: APIXABAN 5 MG TABLET PO SCH ×2 (08:18→22:25)
[2017-03-19] MEDS: METOPROLOL 25 MG TAB PO SCH ×4 (08:19→22:25)
[2017-03-19] MEDS: DICLOFENAC (EC) 75 MG TAB PO SCH (08:23)
--- NOTE | 2017-03-19 08:34 | CONS ---
Date/Time of Note Date/Time of Note DATE: 03/19/17 TIME: 08:32 Assessment/Plan Assessment/Plan Additional Assessment/Plan Chest x-ray was reviewed from today which is essentially clear. Assessment and recommendations; 1. Patient admitted with sepsis with bilateral pneumonia with significant clinical and radiological improvement. 2. Atrial fibrillation, with rate well controlled now. 3. Diabetes. 4. Erosive gastritis. Continue current supportive care. Patient can be transferred to the floor. Consultation Date/Type/Reason Admit Date/Time Mar 01, 2017 at 20:20 Initial Consult Date 03/08/17 Type of Consultation: Pulmonary/critical care Referring Provider: MICHELLE MORENO 24 HR Interval Summary Free Text/Dictation Patient condition is stable. Remains awake alert. Denies any shortness of breath, chest pain, abdominal pain, fever or chills. General exam; elderly woman, awake alert. Currently in no distress. Exam/Review of Systems Vital Signs Vitals Vital Signs Date Time Temp Pulse Resp B/P Pulse Ox O2 Delivery O2 Flow Rate FiO2 03/19/17 06:25 138/54 03/19/17 06:00 64 16 93 High Flow 03/19/17 05:56 50 03/19/17 04:00 98.7 03/15/17 12:00 10.0 Intake and Output 03/18/17 03/18/17 03/19/17 15:00 23:00 07:00 Intake Total 200 ml 400 ml Output Total 275 ml 805 ml 345 ml Balance -75 ml -805 ml 55 ml Exam HEENT exam; supple neck, no JVD. No lymphadenopathy. Midline trachea. No thyromegaly. Patient is edentulous. Pupils are midsize and reactive to light bilaterally. Chest exam; clear to auscultation. S1-S2 audible, no murmurs. Irregular rhythm. Abdomen exam; soft, nontender. No organomegaly. Bowel sounds audible. Extremity exam; no peripheral edema. [employer]ATIONS MA[employer] exam; no focal deficit. Results Result Diagram: 03/19/17 0449 03/19/17 0449 Results 24 hrs Laboratory Tests Test 03/18/17 12:58 03/18/17 18:14 03/18/17 20:03 03/18/17 21:58 Bedside Glucose 159 148 128 130 Test 03/19/17 02:16 03/19/17 04:49 03/19/17 07:00 03/19/17 08:17 Bedside Glucose 132 109 White Blood Count 4.8 Red Blood Count 3.23 L Hemoglobin 9.7 L Hematocrit 32.3 L Mean Corpuscular Volume 100.0 Mean Corpuscular Hemoglobin 30.0 Mean Corpuscular Hemoglobin Concent 30.0 L Red Cell Distribution Width 15.2 H Platelet Count 260 Mean Platelet Volume 10.4 Neutrophils % 53.9 Lymphocytes % 29.9 Monocytes % 9.9 Eosinophils % 5.3 Basophils % 0.6 Nucleated Red Blood Cells % 0.0 Neutrophils # 2.6 Lymphocytes # 1.4 Monocytes # 0.5 Eosinophils # 0.3 Basophils # 0.0 Nucleated Red Blood Cells # 0.0 Sodium Level 147 H Potassium Level 3.7 Chloride Level 100 Carbon Dioxide Level 37 H Anion Gap 14 Blood Urea Nitrogen 16 Creatinine 0.90 Glucose Level 117 Calcium Level 9.5 Phosphorus Level 3.5 Magnesium Level 1.7 Total Bilirubin 0.2 Direct Bilirubin 0.00 Indirect Bilirubin 0.2 Aspartate Amino Transf (AST/SGOT) 15 Alanine Aminotransferase (ALT/SGPT) 23 Alkaline Phosphatase 84 B-Type Natriuretic Peptide 892 H Total Protein 7.3 Albumin 3.6 Globulin 3.70 H Albumin/Globulin Ratio 0.97 Blood Gas Specimen Source Blood arterial Arterial Blood Date Drawn 03/19/2017 7:02:23 AM Arterial Blood pH (Temp corrected) 7.406 Arterial Blood pCO2 (Temp correct) 52.7 H Arterial Blood pO2 (Temp corrected) 67.5 L Arterial Blood HCO3 32.4 H Arterial Blood Base Excess 6.5 H Arterial Blood Oxygen Saturation 93.9 L Pablo Test ACCEPTAB Arterial Blood Gas Puncture Site Right Radial Arterial Blood Carboxyhemoglobin 0.3 Arterial Blood Methemoglobin 0.3 Blood Gas A-a O2 Differential 229.7 H Oxyhemoglobin Percent 93.3 Total Hemoglobin 10.7 L Blood Gas Temperature 37.0 Blood Gas Modality HFNC FiO2 50.0 Blood Gas Notified Whom M.DPhilip Blood Gas Notified Time 03/19/2017 7:55:56 AM Medications Medications Current Medications Miscellaneous Information 1 ea NOTE XX ; Start 03/02/17 at 00:30 Glucose (Glutose) 15 gm Q15M PRN PO DECREASED GLUCOSE; Start 03/02/17 at 00:30 Glucose (Glutose) 22.5 gm Q15M PRN PO DECREASED GLUCOSE; Start 03/02/17 at 00: 30 Dextrose (D50w Syringe) 25 ml Q15M PRN IV DECREASED GLUCOSE; Start 03/02/17 at 00:30 Dextrose (D50w Syringe) 50 ml Q15M PRN IV DECREASED GLUCOSE; Start 03/02/17 at 00:30 Glucagon (Glucagen) 1 mg Q15M PRN IM DECREASED GLUCOSE; Start 03/02/17 at 00:30 Glucose (Glutose) 15 gm Q15M PRN BUCCAL DECREASED GLUCOSE; Start 03/02/17 at 00 :30 Aspirin (Halfprin) 81 mg DAILY PO Last administered on 03/18/17 08:09; Admin Dose 81 MG; Start 03/07/17 at 09:00; Status Future Hold Atorvastatin Calcium (Lipitor) 40 mg QHS PO Last administered on 03/18/17 22: 10; Admin Dose 40 MG; Start 03/06/17 at 21:00 Diclofenac Sodium (Voltaren) 75 mg DAILY PO Last administered on 03/19/17 08: 23; Admin Dose 75 MG; Start 03/07/17 at 09:00 Donepezil HCl (Aricept) 5 mg QHS PO Last administered on 03/18/17 22:09; Admin Dose 5 MG; Start 03/06/17 at 21:00 Morphine Sulfate (morphine) 3 mg Q4H PRN IV PAIN LEVEL 6-10 Last administered on 03/18/17 01:28; Admin Dose 3 MG; Start 03/12/17 at 00:00 Acetaminophen (Tylenol Tab) 325 mg Q4H PRN PO PAIN AND OR ELEVATED TEMP; Start 03/15/17 at 14:30 Pantoprazole (Protonix Tab) 40 mg BID@,18 PO Last administered on 03/19/17 06:35; Admin Dose 40 MG; Start 03/15/17 at 18:00 Metoprolol Tartrate (Lopressor) 25 mg QID PO Last administered on 03/19/17 08: 19; Admin Dose 25 MG; Start 03/16/17 at 09:00 Potassium Chloride (Potassium Chloride Pwd/Soln) 40 meq DAILY PO Last administered on 03/19/17 08:18; Admin Dose 40 MEQ; Start 03/17/17 at 09:00 Insulin Glargine (Lantus) 15 unit DAILY@20 SC Last administered on 03/18/17 20 :12; Admin Dose 15 UNIT; Start 03/17/17 at 20:00 Diagnostic Test (Pha) (Accu-Chek) 1 ea 02 XX Last administered on 03/18/17 01: 34; Admin Dose 1 EA; Start 03/18/17 at 02:00 Apixaban (Eliquis) 2.5 mg BID PO Last administered on 03/19/17 08:18; Admin Dose 2.5 MG; Start 03/18/17 at 21:00 ALFREDO BRUMFIELD Mar 19, 2017 08:34
--- NOTE | 2017-03-19 09:13 | PN ---
Date/Time of Note Date/Time of Note DATE: 03/19/17 TIME: 09:11 Assessment/Plan VTE Prophylaxis VTE Prophylaxis Intervention: SCD's Lines/Catheters IV Catheter Type (from Nrs): Saline Lock Urinary Cath still in place: Yes Reason Cath still needed: urinary retention Assessment/Plan Assessment/Plan 1. P afib/ flutter with RVR: 2. acute hypoxemic respiratory failure 3. + troponin: c.w NSTEMI due to demand ischemia due to above 4. DM and severely elevated glucose: controlled with insulin 5. dyslipidemia 6. pneumonia/ sepsis 7. s/p shock : appear to be related to sepsis: currently off of levophed 8. hx memory impairment 9. anemia and GI bleed: stable now 10. hypo K. now on eliquis cardizem drip prn cont METOPROLOL DM Control with insulin echo shows normal EF replace lytes including K and Mg prn. Subjective 24 Hr Interval Summary Free Text/Dictation The patient with no change Exam/Review of Systems Vital Signs Vitals Vital Signs Date Time Temp Pulse Resp B/P Pulse Ox O2 Delivery O2 Flow Rate FiO2 03/19/17 08:00 69 03/19/17 06:25 138/54 03/19/17 06:00 16 93 High Flow 03/19/17 05:56 50 03/19/17 04:00 98.7 03/15/17 12:00 10.0 Intake and Output 03/18/17 03/18/17 03/19/17 15:00 23:00 07:00 Intake Total 200 ml 400 ml Output Total 275 ml 805 ml 345 ml Balance -75 ml -805 ml 55 ml Results Result Diagram: 03/19/17 0449 03/19/17 0449 Results 24 hrs Laboratory Tests Test 03/18/17 12:58 03/18/17 18:14 03/18/17 20:03 03/18/17 21:58 Bedside Glucose 159 148 128 130 Test 03/19/17 02:16 03/19/17 04:49 03/19/17 07:00 03/19/17 08:17 Bedside Glucose 132 109 White Blood Count 4.8 Red Blood Count 3.23 L Hemoglobin 9.7 L Hematocrit 32.3 L Mean Corpuscular Volume 100.0 Mean Corpuscular Hemoglobin 30.0 Mean Corpuscular Hemoglobin Concent 30.0 L Red Cell Distribution Width 15.2 H Platelet Count 260 Mean Platelet Volume 10.4 Neutrophils % 53.9 Lymphocytes % 29.9 Monocytes % 9.9 Eosinophils % 5.3 Basophils % 0.6 Nucleated Red Blood Cells % 0.0 Neutrophils # 2.6 Lymphocytes # 1.4 Monocytes # 0.5 Eosinophils # 0.3 Basophils # 0.0 Nucleated Red Blood Cells # 0.0 Sodium Level 147 H Potassium Level 3.7 Chloride Level 100 Carbon Dioxide Level 37 H Anion Gap 14 Blood Urea Nitrogen 16 Creatinine 0.90 Glucose Level 117 Calcium Level 9.5 Phosphorus Level 3.5 Magnesium Level 1.7 Total Bilirubin 0.2 Direct Bilirubin 0.00 Indirect Bilirubin 0.2 Aspartate Amino Transf (AST/SGOT) 15 Alanine Aminotransferase (ALT/SGPT) 23 Alkaline Phosphatase 84 B-Type Natriuretic Peptide 892 H Total Protein 7.3 Albumin 3.6 Globulin 3.70 H Albumin/Globulin Ratio 0.97 Blood Gas Specimen Source Blood arterial Arterial Blood Date Drawn 03/19/2017 7:02:23 AM Arterial Blood pH (Temp corrected) 7.406 Arterial Blood pCO2 (Temp correct) 52.7 H Arterial Blood pO2 (Temp corrected) 67.5 L Arterial Blood HCO3 32.4 H Arterial Blood Base Excess 6.5 H Arterial Blood Oxygen Saturation 93.9 L Pablo Test ACCEPTAB Arterial Blood Gas Puncture Site Right Radial Arterial Blood Carboxyhemoglobin 0.3 Arterial Blood Methemoglobin 0.3 Blood Gas A-a O2 Differential 229.7 H Oxyhemoglobin Percent 93.3 Total Hemoglobin 10.7 L Blood Gas Temperature 37.0 Blood Gas Modality HFNC FiO2 50.0 Blood Gas Notified Whom Jonathan Blood Gas Notified Time 03/19/2017 7:55:56 AM Medications Medications Current Medications Miscellaneous Information 1 ea NOTE XX ; Start 03/02/17 at 00:30 Glucose (Glutose) 15 gm Q15M PRN PO DECREASED GLUCOSE; Start 03/02/17 at 00:30 Glucose (Glutose) 22.5 gm Q15M PRN PO DECREASED GLUCOSE; Start 03/02/17 at 00: 30 Dextrose (D50w Syringe) 25 ml Q15M PRN IV DECREASED GLUCOSE; Start 03/02/17 at 00:30 Dextrose (D50w Syringe) 50 ml Q15M PRN IV DECREASED GLUCOSE; Start 03/02/17 at 00:30 Glucagon (Glucagen) 1 mg Q15M PRN IM DECREASED GLUCOSE; Start 03/02/17 at 00:30 Glucose (Glutose) 15 gm Q15M PRN BUCCAL DECREASED GLUCOSE; Start 03/02/17 at 00 :30 Aspirin (Halfprin) 81 mg DAILY PO Last administered on 03/18/17 08:09; Admin Dose 81 MG; Start 03/07/17 at 09:00; Status Future Hold Atorvastatin Calcium (Lipitor) 40 mg QHS PO Last administered on 03/18/17 22: 10; Admin Dose 40 MG; Start 03/06/17 at 21:00 Diclofenac Sodium (Voltaren) 75 mg DAILY PO Last administered on 03/19/17 08: 23; Admin Dose 75 MG; Start 03/07/17 at 09:00 Donepezil HCl (Aricept) 5 mg QHS PO Last administered on 03/18/17 22:09; Admin Dose 5 MG; Start 03/06/17 at 21:00 Morphine Sulfate (morphine) 3 mg Q4H PRN IV PAIN LEVEL 6-10 Last administered on 03/18/17 01:28; Admin Dose 3 MG; Start 03/12/17 at 00:00 Acetaminophen (Tylenol Tab) 325 mg Q4H PRN PO PAIN AND OR ELEVATED TEMP; Start 03/15/17 at 14:30 Pantoprazole (Protonix Tab) 40 mg BID@06,18 PO Last administered on 03/19/17 06:35; Admin Dose 40 MG; Start 03/15/17 at 18:00 Metoprolol Tartrate (Lopressor) 25 mg QID PO Last administered on 03/19/17 08: 19; Admin Dose 25 MG; Start 03/16/17 at 09:00 Potassium Chloride (Potassium Chloride Pwd/Soln) 40 meq DAILY PO Last administered on 03/19/17 08:18; Admin Dose 40 MEQ; Start 03/17/17 at 09:00 Insulin Glargine (Lantus) 15 unit DAILY@20 SC Last administered on 03/18/17 20 :12; Admin Dose 15 UNIT; Start 03/17/17 at 20:00 Diagnostic Test (Pha) (Accu-Chek) 1 ea 02 XX Last administered on 03/18/17 01: 34; Admin Dose 1 EA; Start 03/18/17 at 02:00 Apixaban (Eliquis) 2.5 mg BID PO Last administered on 03/19/17t 08:18; Admin Dose 2.5 MG; Start 03/18/17 at 21:00 SYDNEY DE DIOS MD Mar 19, 2017 09:13
--- NOTE | 2017-03-19 10:36 | CONS ---
Date/Time of Note Date/Time of Note DATE: 03/19/17 TIME: 10:33 Assessment/Plan Assessment/Plan Chief Complaint/Hosp Course This is an 86-year-old female who was in the intensive care unit after she presented to [facility] with respiratory failure, she is intubated. Patient also has severe sepsis history of diabetes hypertension fluid and electrolyte abnormalities and mental status changes. By history patient's family lives in [place] she only has a caregiver living with her here. I'm access with ongoing level of care based more on communication with family members. It is my understanding that case management has a phone number to family members that is available in patient's medical records. Problems: Additional Assessment/Plan Bioethics committee will be done March 18, social work service is continuing to try to contact family members in [facility]. Consultation Date/Type/Reason Admit Date/Time Mar 01, 2017 at 20:20 Initial Consult Date March 17, 2017 Type of Consultation: Palliative care Referring Provider: MICHELLE MORENO 24 HR Interval Summary Subjective hx not possible: pt non-verbal Constitutional: no complaints Exam/Review of Systems Vital Signs Vitals Vital Signs Date Time Temp Pulse Resp B/P Pulse Ox O2 Delivery O2 Flow Rate FiO2 03/19/17 10:22 Nasal Cannula 15 03/19/17 08:00 69 03/19/17 06:25 138/54 03/19/17 06:00 16 93 03/19/17 05:56 50 03/19/17 04:00 98.7 Intake and Output 03/18/17 03/18/17 03/19/17 15:00 23:00 07:00 Intake Total 200 ml 400 ml Output Total 275 ml 805 ml 695 ml Balance -75 ml -805 ml -295 ml Exam Psych: confusion, nl mood/affect, no complaints Respiratory: clear to auscultation, normal air movement Cardiovascular: nl pulses, regular rate and rhythm Results Result Diagram: 03/19/17 0449 03/19/17 0449 Results 24 hrs Laboratory Tests Test 03/18/17 12:58 03/18/17 18:14 03/18/17 20:03 03/18/17 21:58 Bedside Glucose 159 148 128 130 Test 03/19/17 02:16 03/19/17 04:49 7/29/17 07:00 03/19/17 08:17 Bedside Glucose 132 109 White Blood Count 4.8 Red Blood Count 3.23 L Hemoglobin 9.7 L Hematocrit 32.3 L Mean Corpuscular Volume 100.0 Mean Corpuscular Hemoglobin 30.0 Mean Corpuscular Hemoglobin Concent 30.0 L Red Cell Distribution Width 15.2 H Platelet Count 260 Mean Platelet Volume 10.4 Neutrophils % 53.9 Lymphocytes % 29.9 Monocytes % 9.9 Eosinophils % 5.3 Basophils % 0.6 Nucleated Red Blood Cells % 0.0 Neutrophils # 2.6 Lymphocytes # 1.4 Monocytes # 0.5 Eosinophils # 0.3 Basophils # 0.0 Nucleated Red Blood Cells # 0.0 Sodium Level 147 H Potassium Level 3.7 Chloride Level 100 Carbon Dioxide Level 37 H Anion Gap 14 Blood Urea Nitrogen 16 Creatinine 0.90 Glucose Level 117 Calcium Level 9.5 Phosphorus Level 3.5 Magnesium Level 1.7 Total Bilirubin 0.2 Direct Bilirubin 0.00 Indirect Bilirubin 0.2 Aspartate Amino Transf (AST/SGOT) 15 Alanine Aminotransferase (ALT/SGPT) 23 Alkaline Phosphatase 84 B-Type Natriuretic Peptide 892 H Total Protein 7.3 Albumin 3.6 Globulin 3.70 H Albumin/Globulin Ratio 0.97 Blood Gas Specimen Source Blood arterial Arterial Blood Date Drawn 03/19/2017 7:02:23 AM Arterial Blood pH (Temp corrected) 7.406 Arterial Blood pCO2 (Temp correct) 52.7 H Arterial Blood pO2 (Temp corrected) 67.5 L Arterial Blood HCO3 32.4 H Arterial Blood Base Excess 6.5 H Arterial Blood Oxygen Saturation 93.9 L Pablo Test ACCEPTAB Arterial Blood Gas Puncture Site Right Radial Arterial Blood Carboxyhemoglobin 0.3 Arterial Blood Methemoglobin 0.3 Blood Gas A-a O2 Differential 229.7 H Oxyhemoglobin Percent 93.3 Total Hemoglobin 10.7 L Blood Gas Temperature 37.0 Blood Gas Modality HFNC FiO2 50.0 Blood Gas Notified Whom M.DPhilip Blood Gas Notified Time 03/19/2017 7:55:56 AM Medications Medications Current Medications Miscellaneous Information 1 ea NOTE XX ; Start 03/02/17 at 00:30 Glucose (Glutose) 15 gm Q15M PRN PO DECREASED GLUCOSE; Start 03/02/17 at 00:30 Glucose (Glutose) 22.5 gm Q15M PRN PO DECREASED GLUCOSE; Start 03/02/17 at 00: 30 Dextrose (D50w Syringe) 25 ml Q15M PRN IV DECREASED GLUCOSE; Start 03/02/17 at 00:30 Dextrose (D50w Syringe) 50 ml Q15M PRN IV DECREASED GLUCOSE; Start 03/02/17 at 00:30 Glucagon (Glucagen) 1 mg Q15M PRN IM DECREASED GLUCOSE; Start 03/02/17 at 00:30 Glucose (Glutose) 15 gm Q15M PRN BUCCAL DECREASED GLUCOSE; Start 03/02/17 at 00 :30 Aspirin (Halfprin) 81 mg DAILY PO Last administered on 03/18/17 08:09; Admin Dose 81 MG; Start 03/07/17 at 09:00; Status Future Hold Atorvastatin Calcium (Lipitor) 40 mg QHS PO Last administered on 03/18/17 22: 10; Admin Dose 40 MG; Start 03/06/17 at 21:00 Diclofenac Sodium (Voltaren) 75 mg DAILY PO Last administered on 03/19/17 08: 23; Admin Dose 75 MG; Start 03/07/17 at 09:00 Donepezil HCl (Aricept) 5 mg QHS PO Last administered on 03/18/17 22:09; Admin Dose 5 MG; Start 03/06/17 at 21:00 Morphine Sulfate (morphine) 3 mg Q4H PRN IV PAIN LEVEL 6-10 Last administered on 03/18/17 01:28; Admin Dose 3 MG; Start 03/12/17 at 00:00 Acetaminophen (Tylenol Tab) 325 mg Q4H PRN PO PAIN AND OR ELEVATED TEMP; Start 03/15/17 at 14:30 Pantoprazole (Protonix Tab) 40 mg BID@06,18 PO Last administered on 03/19/17 06:35; Admin Dose 40 MG; Start 03/15/17 at 18:00 Metoprolol Tartrate (Lopressor) 25 mg QID PO Last administered on 03/19/17 08: 19; Admin Dose 25 MG; Start 03/16/17 at 09:00 Potassium Chloride (Potassium Chloride Pwd/Soln) 40 meq DAILY PO Last administered on 03/19/17 08:18; Admin Dose 40 MEQ; Start 03/17/17 at 09:00 Insulin Glargine (Lantus) 15 unit DAILY@20 SC Last administered on 03/18/17 20 :12; Admin Dose 15 UNIT; Start 03/17/17 at 20:00 Diagnostic Test (Pha) (Accu-Chek) 1 ea 02 XX Last administered on 03/18/17 01: 34; Admin Dose 1 EA; Start 03/18/17 at 02:00 Apixaban (Eliquis) 2.5 mg BID PO Last administered on 03/19/17 08:18; Admin Dose 2.5 MG; Start 03/18/17 at 21:00 CARY WALTER Mar 19, 2017 10:36
--- NOTE | 2017-03-19 10:39 | CONS ---
Date/Time of Note Date/Time of Note DATE: 03/19/17 TIME: 10:37 Assessment/Plan Assessment/Plan Additional Assessment/Plan Bioethics committee was done patient remains a full code at this time. The issue of ongoing level of care in this lady who cannot make decisions on her own behalf was discussed. Recommendation from the bioethics committee was to continue to try and contact family members in [facility] and reconvene in 3 days. No further recommendations were made to change patient's current CODE STATUS for ongoing level of care. Consultation Date/Type/Reason Admit Date/Time Mar 01, 2017 at 20:20 Initial Consult Date March 17, 2017 Type of Consultation: Palliative care Referring Provider: MICHELLE MORENO Exam/Review of Systems Vital Signs Vitals Vital Signs Date Time Temp Pulse Resp B/P Pulse Ox O2 Delivery O2 Flow Rate FiO2 03/19/17 10:22 Nasal Cannula 15 03/19/17 08:00 69 03/19/17 06:25 138/54 03/19/17 06:00 16 93 03/19/17 05:56 50 03/19/17 04:00 98.7 Intake and Output 03/18/17 03/18/17 03/19/17 15:00 23:00 07:00 Intake Total 200 ml 400 ml Output Total 275 ml 805 ml 695 ml Balance -75 ml -805 ml -295 ml Results Result Diagram: 03/19/17 0449 03/19/17 0449 Results 24 hrs Laboratory Tests Test 03/18/17 12:58 03/18/17 18:14 03/18/17 20:03 03/18/17 21:58 Bedside Glucose 159 148 128 130 Test 03/19/17 02:16 03/19/17 04:49 03/19/17 07:00 03/19/17 08:17 Bedside Glucose 132 109 White Blood Count 4.8 Red Blood Count 3.23 L Hemoglobin 9.7 L Hematocrit 32.3 L Mean Corpuscular Volume 100.0 Mean Corpuscular Hemoglobin 30.0 Mean Corpuscular Hemoglobin Concent 30.0 L Red Cell Distribution Width 15.2 H Platelet Count 260 Mean Platelet Volume 10.4 Neutrophils % 53.9 Lymphocytes % 29.9 Monocytes % 9.9 Eosinophils % 5.3 Basophils % 0.6 Nucleated Red Blood Cells % 0.0 Neutrophils # 2.6 Lymphocytes # 1.4 Monocytes # 0.5 Eosinophils # 0.3 Basophils # 0.0 Nucleated Red Blood Cells # 0.0 Sodium Level 147 H Potassium Level 3.7 Chloride Level 100 Carbon Dioxide Level 37 H Anion Gap 14 Blood Urea Nitrogen 16 Creatinine 0.90 Glucose Level 117 Calcium Level 9.5 Phosphorus Level 3.5 Magnesium Level 1.7 Total Bilirubin 0.2 Direct Bilirubin 0.00 Indirect Bilirubin 0.2 Aspartate Amino Transf (AST/SGOT) 15 Alanine Aminotransferase (ALT/SGPT) 23 Alkaline Phosphatase 84 B-Type Natriuretic Peptide 892 H Total Protein 7.3 Albumin 3.6 Globulin 3.70 H Albumin/Globulin Ratio 0.97 Blood Gas Specimen Source Blood arterial Arterial Blood Date Drawn 03/19/2017 7:02:23 AM Arterial Blood pH (Temp corrected) 7.406 Arterial Blood pCO2 (Temp correct) 52.7 H Arterial Blood pO2 (Temp corrected) 67.5 L Arterial Blood HCO3 32.4 H Arterial Blood Base Excess 6.5 H Arterial Blood Oxygen Saturation 93.9 L Pablo Test ACCEPTAB Arterial Blood Gas Puncture Site Right Radial Arterial Blood Carboxyhemoglobin 0.3 Arterial Blood Methemoglobin 0.3 Blood Gas A-a O2 Differential 229.7 H Oxyhemoglobin Percent 93.3 Total Hemoglobin 10.7 L Blood Gas Temperature 37.0 Blood Gas Modality HFNC FiO2 50.0 Blood Gas Notified Whom Jonathan Blood Gas Notified Time 03/19/2017 7:55:56 AM Medications Medications Current Medications Miscellaneous Information 1 ea NOTE XX ; Start 03/02/17 at 00:30 Glucose (Glutose) 15 gm Q15M PRN PO DECREASED GLUCOSE; Start 03/02/17 at 00:30 Glucose (Glutose) 22.5 gm Q15M PRN PO DECREASED GLUCOSE; Start 03/02/17 at 00: 30 Dextrose (D50w Syringe) 25 ml Q15M PRN IV DECREASED GLUCOSE; Start 03/02/17 at 00:30 Dextrose (D50w Syringe) 50 ml Q15M PRN IV DECREASED GLUCOSE; Start 03/02/17 at 00:30 Glucagon (Glucagen) 1 mg Q15M PRN IM DECREASED GLUCOSE; Start 03/02/17 at 00:30 Glucose (Glutose) 15 gm Q15M PRN BUCCAL DECREASED GLUCOSE; Start 03/02/17 at 00 :30 Aspirin (Halfprin) 81 mg DAILY PO Last administered on 03/18/17 08:09; Admin Dose 81 MG; Start 03/07/17 at 09:00; Status Future Hold Atorvastatin Calcium (Lipitor) 40 mg QHS PO Last administered on 03/18/17 22: 10; Admin Dose 40 MG; Start 03/06/17 at 21:00 Diclofenac Sodium (Voltaren) 75 mg DAILY PO Last administered on 03/19/17 08: 23; Admin Dose 75 MG; Start 03/07/17 at 09:00 Donepezil HCl (Aricept) 5 mg QHS PO Last administered on 03/18/17 22:09; Admin Dose 5 MG; Start 03/06/17 at 21:00 Morphine Sulfate (morphine) 3 mg Q4H PRN IV PAIN LEVEL 6-10 Last administered on 03/18/17 01:28; Admin Dose 3 MG; Start 03/12/17 at 00:00 Acetaminophen (Tylenol Tab) 325 mg Q4H PRN PO PAIN AND OR ELEVATED TEMP; Start 03/15/17 at 14:30 Pantoprazole (Protonix Tab) 40 mg BID@06,18 PO Last administered on 03/19/17 06:35; Admin Dose 40 MG; Start 03/15/17 at 18:00 Metoprolol Tartrate (Lopressor) 25 mg QID PO Last administered on 03/19/17 08: 19; Admin Dose 25 MG; Start 03/16/17 at 09:00 Potassium Chloride (Potassium Chloride Pwd/Soln) 40 meq DAILY PO Last administered on 03/19/17 08:18; Admin Dose 40 MEQ; Start 03/17/17 at 09:00 Insulin Glargine (Lantus) 15 unit DAILY@20 SC Last administered on 03/18/17 20 :12; Admin Dose 15 UNIT; Start 03/17/17 at 20:00 Diagnostic Test (Pha) (Accu-Chek) 1 ea 02 XX Last administered on 03/18/17 01: 34; Admin Dose 1 EA; Start 03/18/17 at 02:00 Apixaban (Eliquis) 2.5 mg BID PO Last administered on 03/19/17 08:18; Admin Dose 2.5 MG; Start 7/28/17 at 21:00 CARY WALTER Mar 19, 2017 10:39
--- NOTE | 2017-03-19 13:27 | PN ---
Date/Time of Note Date/Time of Note DATE: 03/19/17 TIME: 13:26 Assessment/Plan VTE Prophylaxis VTE Prophylaxis Intervention: SCD's Lines/Catheters IV Catheter Type (from Nrsg): Saline Lock Urinary Cath still in place: Yes Reason Cath still needed: other (indicate) (nursing request) Assessment/Plan Assessment/Plan 86 yo F with dementia admitted from facility for acute hypoxic respiratory failure and sepsis: likely 2/2 aspiration pneumonia. EXTUBATED 03/08. Unclear what is precluding faster O2 weaning 1. acute hypoxic respiratory failure: 2/2 aspiration pna, now extubated. duoneb's prn;sp abx repeat CTA without e/o PE or new infection. cont weaning O2 as tolerated 2. Severe sepsis: from aspiration pna, ID following. Likely secondary to respiratory infection. sp abx 3. Tachycardia: afib with RVR vs sinus tach (fluctuates) -cont bb. -ATC resumed 4. suspected fungal esophagitis: sp antifungal 5. diabetes mellitus: Continue insulin sliding scale. cont lantus 15 units, cont SSI 6. History of essential hypertension: ARB on hold 7. Questionable GI bleed: sp EGD 7.15 , +gastritis -cont PO PPI - ST following 8. DVT and GI prophylaxis: SCDs, Protonix 9. hyperthyroid : 7.13 labs notable for hyperthyroid (TSH low, t4 high)--> consider post discharge fu with PCP 10. hypernatremia - resolved Code status: full code. As per notes from bioethics meeting, sw and palliative still trying to reach pt's family in [facility] transfer to tele ARU cs placed critical care time: 30minutes Subjective 24 Hr Interval Summary Free Text/Dictation Sleeping comfortably this morning. Down to 50% FIO2. Exam/Review of Systems Vital Signs Vitals Vital Signs Date Time Temp Pulse Resp B/P Pulse Ox O2 Delivery O2 Flow Rate FiO2 03/19/17 12:00 70 03/19/17 11:10 96 50 03/19/17 10:22 Nasal Cannula 15 03/19/17 06:25 138/54 03/19/17 06:00 16 03/19/17 04:00 98.7 Intake and Output 03/18/17 03/18/17 03/19/17 15:00 23:00 07:00 Intake Total 200 ml 400 ml Output Total 275 ml 805 ml 695 ml Balance -75 ml -805 ml -295 ml Exam nad, laying in bed mild anterior coarse breath sounds no mrg abd soft no rashes Results Result Diagram: 03/19/17 0449 03/19/17 0449 Results 24 hrs Laboratory Tests Test 03/18/17 18:14 03/18/17 20:03 03/18/17 21:58 03/19/17 02:16 Bedside Glucose 148 128 130 132 Test 03/19/17 04:49 03/19/17 07:00 03/19/17 08:17 03/19/17 11:50 White Blood Count 4.8 Red Blood Count 3.23 L Hemoglobin 9.7 L Hematocrit 32.3 L Mean Corpuscular Volume 100.0 Mean Corpuscular Hemoglobin 30.0 Mean Corpuscular Hemoglobin Concent 30.0 L Red Cell Distribution Width 15.2 H Platelet Count 260 Mean Platelet Volume 10.4 Neutrophils % 53.9 Lymphocytes % 29.9 Monocytes % 9.9 Eosinophils % 5.3 Basophils % 0.6 Nucleated Red Blood Cells % 0.0 Neutrophils # 2.6 Lymphocytes # 1.4 Monocytes # 0.5 Eosinophils # 0.3 Basophils # 0.0 Nucleated Red Blood Cells # 0.0 Sodium Level 147 H Potassium Level 3.7 Chloride Level 100 Carbon Dioxide Level 37 H Anion Gap 14 Blood Urea Nitrogen 16 Creatinine 0.90 Glucose Level 117 Calcium Level 9.5 Phosphorus Level 3.5 Magnesium Level 1.7 Total Bilirubin 0.2 Direct Bilirubin 0.00 Indirect Bilirubin 0.2 Aspartate Amino Transf (AST/SGOT) 15 Alanine Aminotransferase (ALT/SGPT) 23 Alkaline Phosphatase 84 B-Type Natriuretic Peptide 892 H Total Protein 7.3 Albumin 3.6 Globulin 3.70 H Albumin/Globulin Ratio 0.97 Blood Gas Specimen Source Blood arterial Arterial Blood Date Drawn 03/19/2017 7:02:23 AM Arterial Blood pH (Temp corrected) 7.406 Arterial Blood pCO2 (Temp correct) 52.7 H Arterial Blood pO2 (Temp corrected) 67.5 L Arterial Blood HCO3 32.4 H Arterial Blood Base Excess 6.5 H Arterial Blood Oxygen Saturation 93.9 L Pablo Test ACCEPTAB Arterial Blood Gas Puncture Site Right Radial Arterial Blood Carboxyhemoglobin 0.3 Arterial Blood Methemoglobin 0.3 Blood Gas A-a O2 Differential 229.7 H Oxyhemoglobin Percent 93.3 Total Hemoglobin 10.7 L Blood Gas Temperature 37.0 Blood Gas Modality HFNC FiO2 50.0 Blood Gas Notified Whom M.D. Blood Gas Notified Time 03/19/2017 7:55:56 AM Bedside Glucose 109 111 Medications Medications Current Medications Miscellaneous Information 1 ea NOTE XX ; Start 03/02/17 at 00:30 Glucose (Glutose) 15 gm Q15M PRN PO DECREASED GLUCOSE; Start 03/02/17 at 00:30 Glucose (Glutose) 22.5 gm Q15M PRN PO DECREASED GLUCOSE; Start 03/02/17 at 00: 30 Dextrose (D50w Syringe) 25 ml Q15M PRN IV DECREASED GLUCOSE; Start 03/02/17 at 00:30 Dextrose (D50w Syringe) 50 ml Q15M PRN IV DECREASED GLUCOSE; Start 03/02/17 at 00:30 Glucagon (Glucagen) 1 mg Q15M PRN IM DECREASED GLUCOSE; Start 03/02/17 at 00:30 Glucose (Glutose) 15 gm Q15M PRN BUCCAL DECREASED GLUCOSE; Start 03/02/17 at 00 :30 Aspirin (Halfprin) 81 mg DAILY PO Last administered on 03/18/17 08:09; Admin Dose 81 MG; Start 03/07/17 at 09:00; Status Future Hold Atorvastatin Calcium (Lipitor) 40 mg QHS PO Last administered on 03/18/17 22: 10; Admin Dose 40 MG; Start 03/06/17 at 21:00 Diclofenac Sodium (Voltaren) 75 mg DAILY PO Last administered on 03/19/17 08: 23; Admin Dose 75 MG; Start 03/07/17 at 09:00 Donepezil HCl (Aricept) 5 mg QHS PO Last administered on 03/18/17 22:09; Admin Dose 5 MG; Start 03/06/17 at 21:00 Morphine Sulfate (morphine) 3 mg Q4H PRN IV PAIN LEVEL 6-10 Last administered on 03/18/17 01:28; Admin Dose 3 MG; Start 03/12/17 at 00:00 Acetaminophen (Tylenol Tab) 325 mg Q4H PRN PO PAIN AND OR ELEVATED TEMP; Start 03/15/17 at 14:30 Pantoprazole (Protonix Tab) 40 mg BID@,18 PO Last administered on 03/19/17 06:35; Admin Dose 40 MG; Start 03/15/17 at 18:00 Metoprolol Tartrate (Lopressor) 25 mg QID PO Last administered on 03/19/17 11: 52; Admin Dose 25 MG; Start 03/16/17 at 09:00 Potassium Chloride (Potassium Chloride Pwd/Soln) 40 meq DAILY PO Last administered on 03/19/17 08:18; Admin Dose 40 MEQ; Start 03/17/17 at 09:00 Insulin Glargine (Lantus) 15 unit DAILY@20 SC Last administered on 03/18/17 20 :12; Admin Dose 15 UNIT; Start 03/17/17 at 20:00 Diagnostic Test (Pha) (Accu-Chek) 1 ea 02 XX Last administered on 03/18/17 01: 34; Admin Dose 1 EA; Start 03/18/17 at 02:00 Apixaban (Eliquis) 2.5 mg BID PO Last administered on 03/19/17 08:18; Admin Dose 2.5 MG; Start 03/18/17 at 21:00 Procedures Procedures ABG results noted. pCO2 improving, A-a gradient still present though etio unclear. No PE. no sig atelectasis or infection on imaging NICK BROWN MD Mar 19, 2017 13:27
--- NOTE | 2017-03-19 16:45 | CONS ---
Date/Time of Note Date/Time of Note DATE: 03/19/17 TIME: 16:35 Assessment/Plan Assessment/Plan Chief Complaint/Hosp Course ID PROGRESS NOTE TOTAL ABX DAY => OFF ABX DAY #9 * s/p 11 DAYS ABX: ZOSYN, Vanco IV, Diflucan 24H INTERVAL SUMMARY/HOSPITAL COURSE * STABLE, no fevers, WBC normal, VSS, Vapotherm // pulmonary congestion // generalized weakness, debility, fatigues easily PHYSICAL EXAMINATION: GENERAL: No fevers, VSS, NAD HEENT: Unremarkable NECK: Trach midline, supple CHEST: Rise symmetrical without dyspnea on supplemental O2 via DM CV: Radial pulse RRR, mild tachy on tele ABDOMEN: Soft, nondistended EXTREMITIES: Warm, dry, intact ID ASSESSMENT: 86 yo F s/PMHx dementia w/memory impairment admit with: 1. s/p Sepsis with shock and persistent leukocytosis==>on admission due to #2 = RESOLVED * No fevers, WBC normalizing, off pressors, tachycardia resolved 2. Multifocal bronchiolitis (+/-) ASPIRATION PNA on admission = STABLE S/P 11 DAYS IV ABX * ASP PNA risk factors: Age, ?dementia, Esophagitis suspect GERD possible silent Aspiration syndrome * CT CXT 03/17/17 IMPRESSION:No evidence of acute pulmonary embolism.Near complete resolution of multifocal bronchiolitis. Residual bronchial wall thickening is seen within the lung bases and has decreased. Small bilateral pleural effusions. 2. Mild cardiomegaly and aortic atherosclerosis. 3. Acute hypoxic/hypercapnic respiratory failure => s/p oral intubation/ mechanical Vent =>EXTUBATED 03/08/17 * Stable on supplemental O2 via Vapotherm 4. s/p Upper GIB -> s/p EGD 03/04/17 revealed (+) Erosive esophagitis w/ Erosive fundal gastritis, related to NG tube trauma. Nodular gastritis * s/p empiric Diflucan for concern esophagitis * 03/04 PATHO REPORT: Gastric biopsy:-- Reactive gastropathy, mild, with focal early acute mucosal erosion.-- No Helicobacter organisms are identified in a Giemsa stain (positive control concurrently reviewed).-- There is no evidence of malignancy 5. Non-ST elevation [place] in setting sepsis + GIB 6. Parosysmal Afib w/RVR => Amiodarone 7. HTN Heart Disease w/diastolic HF * 2D ECHO: Mild concentric LVH w/ EF ~55 %l Stage I diastolic dysfunction. 8. Diabetes (-) MRSA Nares screen INVASIVES: L-SubC TLC, FC ABX ALLERGY: KNDA CURRENT ABX: => OFF ABX DAY #9 s/p 11 DAYS ABX: ZOSYN, Vanco IV, Diflucan ID PLAN: * Continue to monitor the patient OFF ABX, with repeat MICRO PRN clinical indicators of recurrent sepsis * CXR -> residual pulm edema. * Aspiration precautions, follow speech Tx recommendations * ID will continue to monitor - TNS to tele ? . Problems: Consultation Date/Type/Reason Admit Date/Time Mar 01, 2017 at 20:20 Initial Consult Date 03/04/17 Type of Consultation: ID Referring Provider: MICHELLE MORENO Exam/Review of Systems Vital Signs Vitals Vital Signs Date Time Temp Pulse Resp B/P Pulse Ox O2 Delivery O2 Flow Rate FiO2 03/19/17 16:00 66 03/19/17 14:30 13 103/52 87 03/19/17 12:00 98.1 03/19/17 11:10 50 03/19/17 10:22 Nasal Cannula 15 Intake and Output 03/18/17 03/18/17 03/19/17 15:00 23:00 07:00 Intake Total 200 ml 400 ml Output Total 275 ml 805 ml 695 ml Balance -75 ml -805 ml -295 ml Results Result Diagram: 03/19/17 0449 03/19/17 0449 Results 24 hrs Laboratory Tests Test 03/18/17 18:14 03/18/17 20:03 03/18/17 21:58 03/19/17 02:16 Bedside Glucose 148 128 130 132 Test 03/19/17 04:49 03/19/17 07:00 03/19/17 08:17 03/19/17 11:50 White Blood Count 4.8 Red Blood Count 3.23 L Hemoglobin 9.7 L Hematocrit 32.3 L Mean Corpuscular Volume 100.0 Mean Corpuscular Hemoglobin 30.0 Mean Corpuscular Hemoglobin Concent 30.0 L Red Cell Distribution Width 15.2 H Platelet Count 260 Mean Platelet Volume 10.4 Neutrophils % 53.9 Lymphocytes % 29.9 Monocytes % 9.9 Eosinophils % 5.3 Basophils % 0.6 Nucleated Red Blood Cells % 0.0 Neutrophils # 2.6 Lymphocytes # 1.4 Monocytes # 0.5 Eosinophils # 0.3 Basophils # 0.0 Nucleated Red Blood Cells # 0.0 Sodium Level 147 H Potassium Level 3.7 Chloride Level 100 Carbon Dioxide Level 37 H Anion Gap 14 Blood Urea Nitrogen 16 Creatinine 0.90 Glucose Level 117 Calcium Level 9.5 Phosphorus Level 3.5 Magnesium Level 1.7 Total Bilirubin 0.2 Direct Bilirubin 0.00 Indirect Bilirubin 0.2 Aspartate Amino Transf (AST/SGOT) 15 Alanine Aminotransferase (ALT/SGPT) 23 Alkaline Phosphatase 84 B-Type Natriuretic Peptide 892 H Total Protein 7.3 Albumin 3.6 Globulin 3.70 H Albumin/Globulin Ratio 0.97 Blood Gas Specimen Source Blood arterial Arterial Blood Date Drawn 03/19/2017 7:02:23 AM Arterial Blood pH (Temp corrected) 7.406 Arterial Blood pCO2 (Temp correct) 52.7 H Arterial Blood pO2 (Temp corrected) 67.5 L Arterial Blood HCO3 32.4 H Arterial Blood Base Excess 6.5 H Arterial Blood Oxygen Saturation 93.9 L Pablo Test ACCEPTAB Arterial Blood Gas Puncture Site Right Radial Arterial Blood Carboxyhemoglobin 0.3 Arterial Blood Methemoglobin 0.3 Blood Gas A-a O2 Differential 229.7 H Oxyhemoglobin Percent 93.3 Total Hemoglobin 10.7 L Blood Gas Temperature 37.0 Blood Gas Modality HFNC FiO2 50.0 Blood Gas Notified Whom Jonathan Blood Gas Notified Time 03/19/2017 7:55:56 AM Bedside Glucose 109 111 Medications Medications Current Medications Miscellaneous Information 1 ea NOTE XX ; Start 03/02/17 at 00:30 Glucose (Glutose) 15 gm Q15M PRN PO DECREASED GLUCOSE; Start 03/02/17 at 00:30 Glucose (Glutose) 22.5 gm Q15M PRN PO DECREASED GLUCOSE; Start 03/02/17 at 00: 30 Dextrose (D50w Syringe) 25 ml Q15M PRN IV DECREASED GLUCOSE; Start 03/02/17 at 00:30 Dextrose (D50w Syringe) 50 ml Q15M PRN IV DECREASED GLUCOSE; Start 03/02/17 at 00:30 Glucagon (Glucagen) 1 mg Q15M PRN IM DECREASED GLUCOSE; Start 03/02/17 at 00:30 Glucose (Glutose) 15 gm Q15M PRN BUCCAL DECREASED GLUCOSE; Start 03/02/17 at 00 :30 Aspirin (Halfprin) 81 mg DAILY PO Last administered on 03/18/17 08:09; Admin Dose 81 MG; Start 03/07/17 at 09:00; Status Future Hold Atorvastatin Calcium (Lipitor) 40 mg QHS PO Last administered on 03/18/17 22: 10; Admin Dose 40 MG; Start 03/06/17 at 21:00 Diclofenac Sodium (Voltaren) 75 mg DAILY PO Last administered on 03/19/17 08: 23; Admin Dose 75 MG; Start 03/07/17 at 09:00 Donepezil HCl (Aricept) 5 mg QHS PO Last administered on 03/18/17 22:09; Admin Dose 5 MG; Start 03/06/17 at 21:00 Morphine Sulfate (morphine) 3 mg Q4H PRN IV PAIN LEVEL 6-10 Last administered on 03/18/17 01:28; Admin Dose 3 MG; Start 03/12/17 at 00:00 Acetaminophen (Tylenol Tab) 325 mg Q4H PRN PO PAIN AND OR ELEVATED TEMP; Start 03/15/17 at 14:30 Pantoprazole (Protonix Tab) 40 mg BID@06,18 PO Last administered on 03/19/17 06:35; Admin Dose 40 MG; Start 03/15/17 at 18:00 Metoprolol Tartrate (Lopressor) 25 mg QID PO Last administered on 03/19/17 11: 52; Admin Dose 25 MG; Start 03/16/17 at 09:00 Potassium Chloride (Potassium Chloride Pwd/Soln) 40 meq DAILY PO Last administered on 03/19/17 08:18; Admin Dose 40 MEQ; Start 03/17/17 at 09:00 Insulin Glargine (Lantus) 15 unit DAILY@20 SC Last administered on 03/18/17 20 :12; Admin Dose 15 UNIT; Start 03/17/17 at 20:00 Diagnostic Test (Pha) (Accu-Chek) 1 ea 02 XX Last administered on 03/18/17 01: 34; Admin Dose 1 EA; Start 03/18/17 at 02:00 Apixaban (Eliquis) 2.5 mg BID PO Last administered on 03/19/17 08:18; Admin Dose 2.5 MG; Start 03/18/17 at 21:00 SUZY ISABEL NP Mar 19, 2017 16:45
[2017-03-19] MEDS: DONEPEZIL 5 MG TAB PO SCH (22:25)
[2017-03-19] MEDS: ATORVASTATIN 40 MG TAB PO SCH (22:25)
[2017-03-19] MEDS: INSULIN GLARGINE [LANtus] 3 ML PEN SC SCH (22:28)
[2017-03-19] MEDS ORDERED: HALOPERIDOL 5 MG INJ IM ONE (22:30)
[2017-03-20] VITALS (13 sets, daily range): BP systolic 121–185; BP diastolic 56–79; PULSE 60–90; RESP 18–19
[2017-03-20] MEDS: ACCU-CHEK XX SCH (02:00)
[2017-03-20] MEDS ORDERED: hydrALAzine 20 MG INJ IV PRN (05:00)
[2017-03-20] MEDS: FUROSEMIDE 40 MG INJ IV SCH ×2 (05:06→18:34)
[2017-03-20] MEDS: PANTOPRAZOLE (EC) 40 MG TAB PO SCH ×2 (05:06→18:34)
[2017-03-20] MEDS: INSULIN ASPART [NOVOLOG] 3 ML PEN SC SCH ×4 (08:27→21:50)
[2017-03-20] MEDS: APIXABAN 5 MG TABLET PO SCH ×2 (09:55→21:46)
[2017-03-20] MEDS: POTASSIUM CHLORIDE 20 MEQ POWDER FOR ORAL SOLN PO SCH (09:55)
[2017-03-20] MEDS: METOPROLOL 25 MG TAB PO SCH ×4 (09:56→21:00)
--- NOTE | 2017-03-20 11:20 | CONS ---
Date/Time of Note Date/Time of Note DATE: 03/20/17 TIME: 11:18 Assessment/Plan Assessment/Plan Additional Assessment/Plan Assessment recommendations; 1. Patient admitted with severe bilateral pneumonia with marked clinical improvement transferred out of ICU to telemetry unit. 2. History of possible atrial fibrillation, currently in sinus rhythm. 3. History of erosive gastritis. Continue current treatment. Patient responding very well to current treatment regimen. Consultation Date/Type/Reason Admit Date/Time Mar 01, 2017 at 20:20 Initial Consult Date 03/08/17 Type of Consultation: Pulmonary Referring Provider: MICHELLE MORENO 24 HR Interval Summary Free Text/Dictation Patient condition stable. Remains completely awake alert. Denies any shortness of breath, cough, wheezing or sputum production. General exam; elderly woman, awake alert, currently in no distress. Exam/Review of Systems Vital Signs Vitals Vital Signs Date Time Temp Pulse Resp B/P Pulse Ox O2 Delivery O2 Flow Rate FiO2 03/20/17 09:10 94 28 03/20/17 08:11 90 03/20/17 07:51 98.0 18 133/67 03/20/17 07:41 Nasal Cannula 15.0 Intake and Output 03/19/17 03/19/17 03/20/17 15:00 23:00 07:00 Intake Total 240 ml 300 ml Output Total 795 ml Balance -555 ml 300 ml Exam HEENT exam; supple neck, no JVD. No lymphadenopathy. Midline trachea. No thyromegaly. Pharynx is clear. Chest exam; clear to auscultation. S1-S2 audible, no murmurs. Regular rhythm. Abdomen exam; soft, no organomegaly. Bowel sounds audible. Extremity exam; no peripheral edema. PH[employer] exam; no focal deficit. Results Result Diagram: 03/19/17 0449 03/19/17 0449 Results 24 hrs Laboratory Tests Test 03/19/17 11:50 03/19/17 18:35 03/19/17 21:12 03/20/17 08:14 Bedside Glucose 111 144 158 163 Medications Medications Current Medications Miscellaneous Information 1 ea NOTE XX ; Start 03/02/17 at 00:30 Glucose (Glutose) 15 gm Q15M PRN PO DECREASED GLUCOSE; Start 03/02/17 at 00:30 Glucose (Glutose) 22.5 gm Q15M PRN PO DECREASED GLUCOSE; Start 03/02/17 at 00: 30 Dextrose (D50w Syringe) 25 ml Q15M PRN IV DECREASED GLUCOSE; Start 03/02/17 at 00:30 Dextrose (D50w Syringe) 50 ml Q15M PRN IV DECREASED GLUCOSE; Start 03/02/17 at 00:30 Glucagon (Glucagen) 1 mg Q15M PRN IM DECREASED GLUCOSE; Start 03/02/17 at 00:30 Glucose (Glutose) 15 gm Q15M PRN BUCCAL DECREASED GLUCOSE; Start 03/02/17 at 00 :30 Aspirin (Halfprin) 81 mg DAILY PO Last administered on 03/18/17 08:09; Admin Dose 81 MG; Start 03/07/17 at 09:00; Status Future Hold Atorvastatin Calcium (Lipitor) 40 mg QHS PO Last administered on 03/19/17 22: 25; Admin Dose 40 MG; Start 03/06/17 at 21:00 Diclofenac Sodium (Voltaren) 75 mg DAILY PO Last administered on 03/19/17 08: 23; Admin Dose 75 MG; Start 03/07/17 at 09:00 Donepezil HCl (Aricept) 5 mg QHS PO Last administered on 03/19/17 22:25; Admin Dose 5 MG; Start 03/06/17 at 21:00 Morphine Sulfate (morphine) 3 mg Q4H PRN IV PAIN LEVEL 6-10 Last administered on 03/18/17 01:28; Admin Dose 3 MG; Start 03/12/17 at 00:00 Acetaminophen (Tylenol Tab) 325 mg Q4H PRN PO PAIN AND OR ELEVATED TEMP; Start 03/15/17 at 14:30 Pantoprazole (Protonix Tab) 40 mg BID@06,18 PO Last administered on 03/20/17 05:06; Admin Dose 40 MG; Start 03/15/17 at 18:00 Metoprolol Tartrate (Lopressor) 25 mg QID PO Last administered on 03/20/17 09: 56; Admin Dose 25 MG; Start 03/16/17 at 09:00 Potassium Chloride (Potassium Chloride Pwd/Soln) 40 meq DAILY PO Last administered on 03/20/17 09:55; Admin Dose 40 MEQ; Start 03/17/17 at 09:00 Insulin Glargine (Lantus) 15 unit DAILY@20 SC Last administered on 03/19/17 22 :28; Admin Dose 15 UNIT; Start 03/17/17 at 20:00 Diagnostic Test (Pha) (Accu-Chek) 1 ea 02 XX Last administered on 03/18/17 01: 34; Admin Dose 1 EA; Start 03/18/17 at 02:00 Apixaban (Eliquis) 2.5 mg BID PO Last administered on 03/20/17 09:55; Admin Dose 2.5 MG; Start 03/18/17 at 21:00 Hydralazine HCl (Apresoline) 10 mg Q6H PRN IV ELEVATED BLOOD PRESSURE Last administered on 03/20/17 05:06; Admin Dose 10 MG; Start 03/20/17 at 05:00 ALFREDO BRUMFIELD Mar 20, 2017 11:20
[2017-03-20] MEDS: DICLOFENAC (EC) 75 MG TAB PO SCH (12:41)
--- NOTE | 2017-03-20 16:28 | PN ---
Date/Time of Note Date/Time of Note DATE: 03/20/17 TIME: 16:26 Assessment/Plan VTE Prophylaxis VTE Prophylaxis Intervention: SCD's Lines/Catheters IV Catheter Type (from Nrsg): Saline Lock Urinary Cath still in place: No Assessment/Plan Assessment/Plan 86 yo F with dementia admitted from facility for acute hypoxic respiratory failure and sepsis: likely 2/2 aspiration pneumonia. EXTUBATED 03/08. Unclear what is precluding faster O2 weaning 1. acute hypoxic respiratory failure: 2/2 aspiration pna, now extubated. duoneb's prn;sp abx repeat CTA without e/o PE or new infection. cont weaning O2 as tolerated 2. Severe sepsis: from aspiration pna, ID following. Likely secondary to respiratory infection. sp abx 3. Tachycardia: afib with RVR vs sinus tach (fluctuates) -cont bb. -ATC resumed 4. suspected fungal esophagitis: sp antifungal 5. diabetes mellitus: Continue insulin sliding scale. cont lantus 15 units, cont SSI 6. History of essential hypertension: ARB on hold 7. Questionable GI bleed: sp EGD 7.15 , +gastritis -cont PO PPI - ST following 8. DVT and GI prophylaxis: SCDs, Protonix 9. hyperthyroid : 7.13 labs notable for hyperthyroid (TSH low, t4 high)--> consider post discharge fu with PCP 10. hypernatremia - resolved 11. gastritis/esophagitis: Seen on EGD 7.14. cont high dose PPI. consider discussing with GI when PPI regimen can be de escalated Code status: full code. As per notes from bioethics meeting, sw and palliative still trying to reach pt's family in [facility] transfer to tele ARU cs placed critical care time: 30minutes Subjective 24 Hr Interval Summary Free Text/Dictation Only wants to eat some of her applesauce Exam/Review of Systems Vital Signs Vitals Vital Signs Date Time Temp Pulse Resp B/P Pulse Ox O2 Delivery O2 Flow Rate FiO2 03/20/17 15:20 96 45 03/20/17 12:57 98.0 79 18 131/73 03/20/17 07:41 Nasal Cannula 15.0 Intake and Output 03/19/17 03/19/17 03/20/17 15:00 23:00 07:00 Intake Total 240 ml 300 ml Output Total 795 ml Balance -555 ml 300 ml Exam sitting up in bed, pleasant no mrg lungs clear abd soft no rashes Results Result Diagram: 03/19/179 03/19/17448 Results 24 hrs Laboratory Tests Test 03/19/17 18:35 03/19/17 21:12 03/20/17 08:14 03/20/17 12:47 Bedside Glucose 144 158 163 218 Medications Medications Current Medications Miscellaneous Information 1 ea NOTE XX ; Start 03/02/17 at 00:30 Glucose (Glutose) 15 gm Q15M PRN PO DECREASED GLUCOSE; Start 03/02/17 at 00:30 Glucose (Glutose) 22.5 gm Q15M PRN PO DECREASED GLUCOSE; Start 03/02/17 at 00: 30 Dextrose (D50w Syringe) 25 ml Q15M PRN IV DECREASED GLUCOSE; Start 03/02/17 at 00:30 Dextrose (D50w Syringe) 50 ml Q15M PRN IV DECREASED GLUCOSE; Start 03/02/17 at 00:30 Glucagon (Glucagen) 1 mg Q15M PRN IM DECREASED GLUCOSE; Start 03/02/17 at 00:30 Glucose (Glutose) 15 gm Q15M PRN BUCCAL DECREASED GLUCOSE; Start 03/02/17 at 00 :30 Aspirin (Halfprin) 81 mg DAILY PO Last administered on 03/18/17 08:09; Admin Dose 81 MG; Start 03/07/17 at 09:00; Status Future Hold Atorvastatin Calcium (Lipitor) 40 mg QHS PO Last administered on 03/19/17 22: 25; Admin Dose 40 MG; Start 03/06/17 at 21:00 Diclofenac Sodium (Voltaren) 75 mg DAILY PO Last administered on 03/20/17 12: 41; Admin Dose 75 MG; Start 03/07/17 at 09:00 Donepezil HCl (Aricept) 5 mg QHS PO Last administered on 03/19/17 22:25; Admin Dose 5 MG; Start 03/06/17 at 21:00 Morphine Sulfate (morphine) 3 mg Q4H PRN IV PAIN LEVEL 6-10 Last administered on 03/18/17 01:28; Admin Dose 3 MG; Start 03/12/17 at 00:00 Acetaminophen (Tylenol Tab) 325 mg Q4H PRN PO PAIN AND OR ELEVATED TEMP; Start 03/15/17 at 14:30 Pantoprazole (Protonix Tab) 40 mg BID@06,18 PO Last administered on 03/20/17 05:06; Admin Dose 40 MG; Start 03/15/17 at 18:00 Metoprolol Tartrate (Lopressor) 25 mg QID PO Last administered on 03/20/17 12: 44; Admin Dose 25 MG; Start 03/16/17 at 09:00 Potassium Chloride (Potassium Chloride Pwd/Soln) 40 meq DAILY PO Last administered on 03/20/17 09:55; Admin Dose 40 MEQ; Start 03/17/17 at 09:00 Insulin Glargine (Lantus) 15 unit DAILY@20 SC Last administered on 03/19/17 22 :28; Admin Dose 15 UNIT; Start 03/17/17 at 20:00 Diagnostic Test (Pha) (Accu-Chek) 1 ea 02 XX Last administered on 03/18/17 01: 34; Admin Dose 1 EA; Start 03/18/17 at 02:00 Apixaban (Eliquis) 2.5 mg BID PO Last administered on 03/20/17 09:55; Admin Dose 2.5 MG; Start 03/18/17 at 21:00 Hydralazine HCl (Apresoline) 10 mg Q6H PRN IV ELEVATED BLOOD PRESSURE Last administered on 03/20/17 05:06; Admin Dose 10 MG; Start 03/20/17 at 05:00 NICK BROWN MD Mar 20, 2017 16:28
--- NOTE | 2017-03-20 17:46 | CONS ---
Date/Time of Note Date/Time of Note DATE: 03/20/17 TIME: 17:43 Assessment/Plan Assessment/Plan Chief Complaint/Hosp Course ID PROGRESS NOTE TOTAL ABX DAY => OFF ABX DAY #10 * s/p 11 DAYS ABX: ZOSYN, Vanco IV, Diflucan 24H INTERVAL SUMMARY/HOSPITAL COURSE * Seen up in TELE -- much improved and TNS out of ICU * Awake, alert, responsive, OOB->Chair, no fevers, VSS, denies F/C/N/V/D/CP/SOB/ Wheeze * Resolving pulmonary congestion // generalized weakness, debility, fatigues easily --working w/PTx PHYSICAL EXAMINATION: GENERAL: No fevers, VSS, NAD HEENT: Unremarkable NECK: Trach midline, supple CHEST: Rise symmetrical without dyspnea on supplemental O2 via DM CV: Radial pulse RRR, mild tachy on tele ABDOMEN: Soft, nondistended EXTREMITIES: Warm, dry, intact ID ASSESSMENT: 86 yo F s/PMHx dementia w/memory impairment admit with: 1. s/p Sepsis with shock and persistent leukocytosis==>on admission due to #2 = RESOLVED * No fevers, WBC normalizing, off pressors, tachycardia resolved 2. Multifocal bronchiolitis (+/-) ASPIRATION PNA on admission = STABLE S/P 11 DAYS IV ABX * ASP PNA risk factors: Age, ?dementia, Esophagitis suspect GERD possible silent Aspiration syndrome * CT CXT 03/17/17 IMPRESSION:No evidence of acute pulmonary embolism.Near complete resolution of multifocal bronchiolitis. Residual bronchial wall thickening is seen within the lung bases and has decreased. Small bilateral pleural effusions. 2. Mild cardiomegaly and aortic atherosclerosis. 3. Acute hypoxic/hypercapnic respiratory failure => s/p oral intubation/ mechanical Vent =>EXTUBATED 03/08/17 * Stable on supplemental O2 via Vapotherm 4. s/p Upper GIB -> s/p EGD 03/04/17 revealed (+) Erosive esophagitis w/ Erosive fundal gastritis, related to NG tube trauma. Nodular gastritis * s/p empiric Diflucan for concern esophagitis * 03/04 PATHO REPORT: Gastric biopsy:-- Reactive gastropathy, mild, with focal early acute mucosal erosion.-- No Helicobacter organisms are identified in a Giemsa stain (positive control concurrently reviewed).-- There is no evidence of malignancy 5. Non-ST elevation [place] in setting sepsis + GIB 6. Parosysmal Afib w/RVR => Amiodarone 7. HTN Heart Disease w/diastolic HF * 2D ECHO: Mild concentric LVH w/ EF ~55 %l Stage I diastolic dysfunction. 8. Diabetes (-) MRSA Nares screen INVASIVES: L-SubC TLC, FC ABX ALLERGY: KNDA CURRENT ABX: => OFF ABX DAY #10 s/p 11 DAYS ABX: ZOSYN, Vanco IV, Diflucan ID PLAN: * Continue to monitor the patient OFF ABX, with repeat MICRO PRN clinical indicators of recurrent sepsis * CXR -> residual pulm edema. * Aspiration precautions, follow speech Tx recommendations * Increase mobility and strength w/PTx . Problems: Consultation Date/Type/Reason Admit Date/Time Mar 01, 2017 at 20:20 Initial Consult Date 03/04/17 Type of Consultation: ID Referring Provider: MICHELLE MORENO Exam/Review of Systems Vital Signs Vitals Vital Signs Date Time Temp Pulse Resp B/P Pulse Ox O2 Delivery O2 Flow Rate FiO2 03/20/17 17:10 93 28 03/20/17 16:12 63 03/20/17 12:57 98.0 18 131/73 03/20/17 07:41 Nasal Cannula 15.0 Intake and Output 03/19/17 03/19/17 03/20/17 15:00 23:00 07:00 Intake Total 240 ml 300 ml Output Total 795 ml Balance -555 ml 300 ml Results Result Diagram: 03/19/17 0449 03/19/17 0449 Results 24 hrs Laboratory Tests Test 03/19/17 18:35 03/19/17 21:12 03/20/17 08:14 03/20/17 12:47 Bedside Glucose 144 158 163 218 Medications Medications Current Medications Miscellaneous Information 1 ea NOTE XX ; Start 03/02/17 at 00:30 Glucose (Glutose) 15 gm Q15M PRN PO DECREASED GLUCOSE; Start 03/02/17 at 00:30 Glucose (Glutose) 22.5 gm Q15M PRN PO DECREASED GLUCOSE; Start 03/02/17 at 00: 30 Dextrose (D50w Syringe) 25 ml Q15M PRN IV DECREASED GLUCOSE; Start 03/02/17 at 00:30 Dextrose (D50w Syringe) 50 ml Q15M PRN IV DECREASED GLUCOSE; Start 03/02/17 at 00:30 Glucagon (Glucagen) 1 mg Q15M PRN IM DECREASED GLUCOSE; Start 03/02/17 at 00:30 Glucose (Glutose) 15 gm Q15M PRN BUCCAL DECREASED GLUCOSE; Start 03/02/17 at 00 :30 Aspirin (Halfprin) 81 mg DAILY PO Last administered on 03/18/17 08:09; Admin Dose 81 MG; Start 03/07/17 at 09:00; Status Future Hold Atorvastatin Calcium (Lipitor) 40 mg QHS PO Last administered on 03/19/17 22: 25; Admin Dose 40 MG; Start 03/06/17 at 21:00 Diclofenac Sodium (Voltaren) 75 mg DAILY PO Last administered on 03/20/17 12: 41; Admin Dose 75 MG; Start 03/07/17 at 09:00 Donepezil HCl (Aricept) 5 mg QHS PO Last administered on 03/19/17 22:25; Admin Dose 5 MG; Start 03/06/17 at 21:00 Morphine Sulfate (morphine) 3 mg Q4H PRN IV PAIN LEVEL 6-10 Last administered on 03/18/17 01:28; Admin Dose 3 MG; Start 03/12/17 at 00:00 Acetaminophen (Tylenol Tab) 325 mg Q4H PRN PO PAIN AND OR ELEVATED TEMP; Start 03/15/17 at 14:30 Pantoprazole (Protonix Tab) 40 mg BID@06,18 PO Last administered on 03/20/17 05:06; Admin Dose 40 MG; Start 03/15/17 at 18:00 Metoprolol Tartrate (Lopressor) 25 mg QID PO Last administered on 03/20/17 12: 44; Admin Dose 25 MG; Start 03/16/17 at 09:00 Potassium Chloride (Potassium Chloride Pwd/Soln) 40 meq DAILY PO Last administered on 03/20/17 09:55; Admin Dose 40 MEQ; Start 03/17/17 at 09:00 Insulin Glargine (Lantus) 15 unit DAILY@20 SC Last administered on 03/19/17 22 :28; Admin Dose 15 UNIT; Start 03/17/17 at 20:00 Diagnostic Test (Pha) (Accu-Chek) 1 ea 02 XX Last administered on 03/18/17 01: 34; Admin Dose 1 EA; Start 03/18/17 at 02:00 Apixaban (Eliquis) 2.5 mg BID PO Last administered on 03/20/17 09:55; Admin Dose 2.5 MG; Start 03/18/17 at 21:00 Hydralazine HCl (Apresoline) 10 mg Q6H PRN IV ELEVATED BLOOD PRESSURE Last administered on 03/20/17 05:06; Admin Dose 10 MG; Start 03/20/17 at 05:00 SUZY ISABEL NP Mar 20, 2017 17:46
[2017-03-20] MEDS: DONEPEZIL 5 MG TAB PO SCH (21:00)
[2017-03-20] MEDS: ATORVASTATIN 40 MG TAB PO SCH (21:46)
[2017-03-20] MEDS: INSULIN GLARGINE [LANtus] 3 ML PEN SC SCH (21:48)
[2017-03-21] VITALS (12 sets, daily range): BP systolic 119–146; BP diastolic 57–86; PULSE 63–76; RESP 15–20
[2017-03-21] MEDS: ACCU-CHEK XX SCH (02:00)
[2017-03-21] MEDS: FUROSEMIDE 40 MG INJ IV SCH ×2 (05:21→17:26)
[2017-03-21] MEDS: PANTOPRAZOLE (EC) 40 MG TAB PO SCH ×2 (05:21→17:39)
[2017-03-21] MEDS: INSULIN ASPART [NOVOLOG] 3 ML PEN SC SCH ×4 (08:48→22:30)
[2017-03-21] MEDS: METOPROLOL 25 MG TAB PO SCH ×4 (08:53→22:15)
[2017-03-21] MEDS: POTASSIUM CHLORIDE 20 MEQ POWDER FOR ORAL SOLN PO SCH (08:53)
[2017-03-21] MEDS: DICLOFENAC (EC) 75 MG TAB PO SCH (08:53)
[2017-03-21] MEDS: APIXABAN 5 MG TABLET PO SCH ×2 (08:53→22:15)
--- NOTE | 2017-03-21 11:03 | CONS ---
Date/Time of Note Date/Time of Note DATE: 03/21/17 TIME: 10:54 Assessment/Plan Assessment/Plan Additional Assessment/Plan Bioethics follow up today... SWS has had no luck contacting family in [facility]. Consultation Date/Type/Reason Admit Date/Time Mar 01, 2017 at 20:20 Initial Consult Date March 17, 2017 Type of Consultation: Palliative Care Referring Provider: MICHELLE MORENO 24 HR Interval Summary Free Text/Dictation This is an 86-year-old female who was in the intensive care unit after she presented to [facility] with respiratory failure, she is intubated. Patient also has severe sepsis history of diabetes hypertension fluid and electrolyte abnormalities and mental status changes. By history patient's family lives in [facility] she only has a caregiver living with her here. I'm access with ongoing level of care based more on communication with family members. It is my understanding that case management has a phone number to family members that is available in patient's medical records. Exam/Review of Systems Vital Signs Vitals Vital Signs Date Time Temp Pulse Resp B/P Pulse Ox O2 Delivery O2 Flow Rate FiO2 03/21/17 08:19 73 03/21/17 08:07 94 50 03/21/17 07:39 98.0 18 119/58 03/20/17 20:00 Nasal Cannula 15.0 Intake and Output 03/20/17 03/20/17 03/21/17 15:00 23:00 07:00 Intake Total 700 ml 500 ml Balance 700 ml 500 ml Results Result Diagram: 03/19/17 0449 03/19/17 0449 Results 24 hrs Laboratory Tests Test 03/20/17 12:47 03/20/17 17:42 03/20/17 20:37 03/21/17 03:13 Bedside Glucose 218 252 H 223 H 201 Test 03/21/17 08:43 Bedside Glucose 156 Medications Medications Current Medications Miscellaneous Information 1 ea NOTE XX ; Start 03/02/17 at 00:30 Glucose (Glutose) 15 gm Q15M PRN PO DECREASED GLUCOSE; Start 03/02/17 at 00:30 Glucose (Glutose) 22.5 gm Q15M PRN PO DECREASED GLUCOSE; Start 03/02/17 at 00: 30 Dextrose (D50w Syringe) 25 ml Q15M PRN IV DECREASED GLUCOSE; Start 03/02/17 at 00:30 Dextrose (D50w Syringe) 50 ml Q15M PRN IV DECREASED GLUCOSE; Start 03/02/17 at 00:30 Glucagon (Glucagen) 1 mg Q15M PRN IM DECREASED GLUCOSE; Start 03/02/17 at 00:30 Glucose (Glutose) 15 gm Q15M PRN BUCCAL DECREASED GLUCOSE; Start 03/02/17 at 00 :30 Aspirin (Halfprin) 81 mg DAILY PO Last administered on 03/18/17 08:09; Admin Dose 81 MG; Start 03/07/17 at 09:00; Status Future Hold Atorvastatin Calcium (Lipitor) 40 mg QHS PO Last administered on 03/20/17 21: 46; Admin Dose 40 MG; Start 03/06/17 at 21:00 Diclofenac Sodium (Voltaren) 75 mg DAILY PO Last administered on 03/21/17 08: 53; Admin Dose 75 MG; Start 03/07/17 at 09:00 Donepezil HCl (Aricept) 5 mg QHS PO Last administered on 03/19/17 22:25; Admin Dose 5 MG; Start 03/06/17 at 21:00 Morphine Sulfate (morphine) 3 mg Q4H PRN IV PAIN LEVEL 6-10 Last administered on 03/18/17 01:28; Admin Dose 3 MG; Start 03/12/17 at 00:00 Acetaminophen (Tylenol Tab) 325 mg Q4H PRN PO PAIN AND OR ELEVATED TEMP; Start 03/15/17 at 14:30 Pantoprazole (Protonix Tab) 40 mg BID@06,18 PO Last administered on 03/21/17 05:21; Admin Dose 40 MG; Start 03/15/17 at 18:00 Metoprolol Tartrate (Lopressor) 25 mg QID PO Last administered on 03/21/17 08: 53; Admin Dose 25 MG; Start 03/16/17 at 09:00 Potassium Chloride (Potassium Chloride Pwd/Soln) 40 meq DAILY PO Last administered on 03/21/17 08:53; Admin Dose 40 MEQ; Start 03/17/17 at 09:00 Insulin Glargine (Lantus) 15 unit DAILY@20 SC Last administered on 03/20/17 21 :48; Admin Dose 15 UNIT; Start 03/17/17 at 20:00 Diagnostic Test (Pha) (Accu-Chek) 1 ea 02 XX Last administered on 03/18/17 01: 34; Admin Dose 1 EA; Start 03/18/17 at 02:00 Apixaban (Eliquis) 2.5 mg BID PO Last administered on 03/21/17 08:53; Admin Dose 2.5 MG; Start 03/18/17 at 21:00 Hydralazine HCl (Apresoline) 10 mg Q6H PRN IV ELEVATED BLOOD PRESSURE Last administered on 03/20/17 05:06; Admin Dose 10 MG; Start 03/20/17 at 05:00 CARY WALTER Mar 21, 2017 11:03
--- NOTE | 2017-03-21 12:49 | CONS ---
Date/Time of Note Date/Time of Note DATE: 03/21/17 TIME: 12:48 Assessment/Plan Assessment/Plan Additional Assessment/Plan Assessment and recommendations; 1. Patient admitted for bilateral pneumonia with marked clinical improvement. 2. Paroxysmal atrial fibrillation, currently in sinus rhythm. 3. History of gastritis. Continue current treatment. Consider discharge. Consultation Date/Type/Reason Admit Date/Time Mar 01, 2017 at 20:20 Initial Consult Date 03/08/17 Type of Consultation: Pulmonary Referring Provider: MICHELLE MORENO 24 HR Interval Summary Free Text/Dictation Patient condition stable. Remains awake alert. Denies any shortness of breath , chest pain,. Next General exam; elderly woman, awake alert currently in no distress. Exam/Review of Systems Vital Signs Vitals Vital Signs Date Time Temp Pulse Resp B/P Pulse Ox O2 Delivery O2 Flow Rate FiO2 03/21/17 12:29 98.0 77 18 121/62 98 03/21/17 08:07 50 03/21/17 08:00 Nasal Cannula 15.0 Intake and Output 03/20/17 03/20/17 03/21/17 15:00 23:00 07:00 Intake Total 700 ml 500 ml Balance 700 ml 500 ml Exam HEENT exam; supple neck, no JVD. No lymphadenopathy. Midline trachea. No thyromegaly. Chest exam; clear to auscultation. S1-S2 audible, no murmurs. Regular rhythm. Abdomen exam; soft, nontender. No organomegaly. Bowel sounds audible. Extremity exam; no peripheral edema. [employer] exam; no focal deficit. Results Result Diagram: 03/19/17 0449 03/19/17 0449 Results 24 hrs Laboratory Tests Test 03/20/17 17:42 03/20/17 20:37 03/21/17 03:13 03/21/17 08:43 Bedside Glucose 252 H 223 H 201 156 Test 03/21/17 11:55 Bedside Glucose 244 H Medications Medications Current Medications Miscellaneous Information 1 ea NOTE XX ; Start 03/02/17 at 00:30 Glucose (Glutose) 15 gm Q15M PRN PO DECREASED GLUCOSE; Start 03/02/17 at 00:30 Glucose (Glutose) 22.5 gm Q15M PRN PO DECREASED GLUCOSE; Start 03/02/17 at 00: 30 Dextrose (D50w Syringe) 25 ml Q15M PRN IV DECREASED GLUCOSE; Start 03/02/17 at 00:30 Dextrose (D50w Syringe) 50 ml Q15M PRN IV DECREASED GLUCOSE; Start 03/02/17 at 00:30 Glucagon (Glucagen) 1 mg Q15M PRN IM DECREASED GLUCOSE; Start 03/02/17 at 00:30 Glucose (Glutose) 15 gm Q15M PRN BUCCAL DECREASED GLUCOSE; Start 03/02/17 at 00 :30 Aspirin (Halfprin) 81 mg DAILY PO Last administered on 03/18/17 08:09; Admin Dose 81 MG; Start 03/07/17 at 09:00; Status Future Hold Atorvastatin Calcium (Lipitor) 40 mg QHS PO Last administered on 03/20/17 21: 46; Admin Dose 40 MG; Start 03/06/17 at 21:00 Diclofenac Sodium (Voltaren) 75 mg DAILY PO Last administered on 03/21/17 08: 53; Admin Dose 75 MG; Start 03/07/17 at 09:00 Donepezil HCl (Aricept) 5 mg QHS PO Last administered on 03/19/17 22:25; Admin Dose 5 MG; Start 03/06/17 at 21:00 Morphine Sulfate (morphine) 3 mg Q4H PRN IV PAIN LEVEL 6-10 Last administered on 03/18/17 01:28; Admin Dose 3 MG; Start 03/12/17 at 00:00 Acetaminophen (Tylenol Tab) 325 mg Q4H PRN PO PAIN AND OR ELEVATED TEMP; Start 03/15/17 at 14:30 Pantoprazole (Protonix Tab) 40 mg BID@06,18 PO Last administered on 03/21/17 05:21; Admin Dose 40 MG; Start 03/15/17 at 18:00 Metoprolol Tartrate (Lopressor) 25 mg QID PO Last administered on 03/21/17 08: 53; Admin Dose 25 MG; Start 03/16/17 at 09:00 Potassium Chloride (Potassium Chloride Pwd/Soln) 40 meq DAILY PO Last administered on 03/21/17 08:53; Admin Dose 40 MEQ; Start 03/17/17 at 09:00 Insulin Glargine (Lantus) 15 unit DAILY@20 SC Last administered on 03/20/17 21 :48; Admin Dose 15 UNIT; Start 03/17/17 at 20:00 Diagnostic Test (Pha) (Accu-Chek) 1 ea 02 XX Last administered on 03/18/17 01: 34; Admin Dose 1 EA; Start 03/18/17 at 02:00 Apixaban (Eliquis) 2.5 mg BID PO Last administered on 03/21/17 08:53; Admin Dose 2.5 MG; Start 03/18/17 at 21:00 Hydralazine HCl (Apresoline) 10 mg Q6H PRN IV ELEVATED BLOOD PRESSURE Last administered on 03/20/17 05:06; Admin Dose 10 MG; Start 03/20/17 at 05:00 ALFREDO BRUMFIELD Mar 21, 2017 12:49
--- NOTE | 2017-03-21 12:52 | PN ---
Date/Time of Note Date/Time of Note DATE: 03/21/17 TIME: 12:49 Assessment/Plan VTE Prophylaxis VTE Prophylaxis Intervention: other (Eliquis) Lines/Catheters IV Catheter Type (from Nrs): Saline Lock Urinary Cath still in place: No Assessment/Plan Chief Complaint/Hosp Course Assessment/Plan: 86 yo F with dementia admitted from facility for acute hypoxic respiratory failure and sepsis: likely 2/2 aspiration pneumonia. EXTUBATED 03/08, now recently transferred out of ICU. 1. acute hypoxic respiratory failure: 2/2 aspiration pna, now extubated. Continue duoneb's prn;sp abx repeat CTA without e/o PE or new infection. - cont weaning O2 as tolerated (presently on high flow oxygen) 2. Severe sepsis: from aspiration pna, ID following. Likely secondary to respiratory infection. sp abx -Monitor for now 3. Tachycardia: afib with RVR vs sinus tach (fluctuates) -cont bb. -ATC resumed 4. suspected fungal esophagitis: sp antifungal 5. diabetes mellitus: Continue insulin sliding scale. cont lantus 15 units, cont SSI 6. History of essential hypertension: ARB on hold 7. Questionable GI bleed: sp EGD 7.15 , +gastritis -cont PO PPI - ST following 8. DVT and GI prophylaxis: SCDs, Protonix 9. hyperthyroid : 7.13 labs notable for hyperthyroid (TSH low, t4 high)--> consider post discharge fu with PCP 10. hypernatremia - resolved 11. gastritis/esophagitis: Seen on EGD 7.14. cont high dose PPI. consider discussing with GI when PPI regimen can be de escalated Code status: full code. As per notes from bioethics meeting, sw and palliative still trying to reach pt's family in [id number] palliative care recommendations on this ARU cs placed Problems: Subjective 24 Hr Interval Summary Free Text/Dictation No acute events overnight, patient still on high flow oxygen. Exam/Review of Systems Vital Signs Vitals Vital Signs Date Time Temp Pulse Resp B/P Pulse Ox O2 Delivery O2 Flow Rate FiO2 03/21/17 12:29 98.0 77 18 121/62 98 03/21/17 08:07 50 03/21/17 08:00 Nasal Cannula 15.0 Intake and Output 03/20/17 03/20/17 03/21/17 15:00 23:00 07:00 Intake Total 700 ml 500 ml Balance 700 ml 500 ml Exam Lying in bed, no acute distress no mrg lungs clear abd soft no rashes No focal deficits Results Result Diagram: 03/19/179 03/19/179 Results 24 hrs Laboratory Tests Test 03/20/17 17:42 03/20/17 20:37 03/21/17 03:13 03/21/17 08:43 Bedside Glucose 252 H 223 H 201 156 Test 03/21/17 11:55 Bedside Glucose 244 H Medications Medications Current Medications Miscellaneous Information 1 ea NOTE XX ; Start 03/02/17 at 00:30 Glucose (Glutose) 15 gm Q15M PRN PO DECREASED GLUCOSE; Start 03/02/17 at 00:30 Glucose (Glutose) 22.5 gm Q15M PRN PO DECREASED GLUCOSE; Start 03/02/17 at 00: 30 Dextrose (D50w Syringe) 25 ml Q15M PRN IV DECREASED GLUCOSE; Start 03/02/17 at 00:30 Dextrose (D50w Syringe) 50 ml Q15M PRN IV DECREASED GLUCOSE; Start 03/02/17 at 00:30 Glucagon (Glucagen) 1 mg Q15M PRN IM DECREASED GLUCOSE; Start 03/02/17 at 00:30 Glucose (Glutose) 15 gm Q15M PRN BUCCAL DECREASED GLUCOSE; Start 03/02/17 at 00 :30 Aspirin (Halfprin) 81 mg DAILY PO Last administered on 03/18/17 08:09; Admin Dose 81 MG; Start 03/07/17 at 09:00; Status Future Hold Atorvastatin Calcium (Lipitor) 40 mg QHS PO Last administered on 03/20/17 21: 46; Admin Dose 40 MG; Start 03/06/17 at 21:00 Diclofenac Sodium (Voltaren) 75 mg DAILY PO Last administered on 03/21/17 08: 53; Admin Dose 75 MG; Start 03/07/17 at 09:00 Donepezil HCl (Aricept) 5 mg QHS PO Last administered on 03/19/17 22:25; Admin Dose 5 MG; Start 03/06/17 at 21:00 Morphine Sulfate (morphine) 3 mg Q4H PRN IV PAIN LEVEL 6-10 Last administered on 03/18/17 01:28; Admin Dose 3 MG; Start 03/12/17 at 00:00 Acetaminophen (Tylenol Tab) 325 mg Q4H PRN PO PAIN AND OR ELEVATED TEMP; Start 03/15/17 at 14:30 Pantoprazole (Protonix Tab) 40 mg BID@06,18 PO Last administered on 03/21/17 05:21; Admin Dose 40 MG; Start 03/15/17 at 18:00 Metoprolol Tartrate (Lopressor) 25 mg QID PO Last administered on 03/21/17 08: 53; Admin Dose 25 MG; Start 03/16/17 at 09:00 Potassium Chloride (Potassium Chloride Pwd/Soln) 40 meq DAILY PO Last administered on 03/21/17 08:53; Admin Dose 40 MEQ; Start 03/17/17 at 09:00 Insulin Glargine (Lantus) 15 unit DAILY@20 SC Last administered on 03/20/17 21 :48; Admin Dose 15 UNIT; Start 03/17/17 at 20:00 Diagnostic Test (Pha) (Accu-Chek) 1 ea 02 XX Last administered on 03/18/17 01: 34; Admin Dose 1 EA; Start 03/18/17 at 02:00 Apixaban (Eliquis) 2.5 mg BID PO Last administered on 03/21/17 08:53; Admin Dose 2.5 MG; Start 03/18/17 at 21:00 Hydralazine HCl (Apresoline) 10 mg Q6H PRN IV ELEVATED BLOOD PRESSURE Last administered on 03/20/17 05:06; Admin Dose 10 MG; Start 03/20/17 at 05:00 FERNANDO DIMAS Mar 21, 2017 12:52
--- NOTE | 2017-03-21 14:46 | CONS ---
Date/Time of Note Date/Time of Note DATE: 03/21/17 TIME: 14:41 Assessment/Plan Assessment/Plan Chief Complaint/Hosp Course ID PROGRESS NOTE TOTAL ABX DAY => OFF ABX DAY #11 * s/p 11 DAYS ABX: ZOSYN, Vanco IV, Diflucan 24H INTERVAL SUMMARY/HOSPITAL COURSE * Awake, alert, pleasantly confused -- follows commands and working w/PTx * OOB->Chair, no fevers, VSS, denies F/C/N/V/D/CP/SOB/Wheeze * Resolving pulmonary congestion // generalized weakness, debility, fatigues easily =>EXTUBATED 03/08/17 PHYSICAL EXAMINATION: GENERAL: No fevers, VSS, NAD HEENT: Unremarkable NECK: Trach midline, supple CHEST: Rise symmetrical without dyspnea on supplemental O2 via DM CV: Radial pulse RRR, mild tachy on tele ABDOMEN: Soft, nondistended EXTREMITIES: Warm, dry, intact ID ASSESSMENT: 86 yo F s/PMHx dementia w/memory impairment admit with: 1. s/p Sepsis with shock and persistent leukocytosis==>on admission due to #2 = RESOLVED * No fevers, WBC normalizing, off pressors, tachycardia resolved 2. Multifocal bronchiolitis (+/-) ASPIRATION PNA on admission = STABLE S/P 11 DAYS IV ABX * ASP PNA risk factors: Age, ?dementia, Esophagitis suspect GERD possible silent Aspiration syndrome * CT CXT 03/17/17 IMPRESSION:No evidence of acute pulmonary embolism.Near complete resolution of multifocal bronchiolitis. Residual bronchial wall thickening is seen within the lung bases and has decreased. Small bilateral pleural effusions. 2. Mild cardiomegaly and aortic atherosclerosis. 3. Acute hypoxic/hypercapnic respiratory failure => s/p oral intubation/ mechanical Vent =>EXTUBATED 03/08/17 * Stable on supplemental O2 via Vapotherm 4. s/p Upper GIB -> s/p EGD 03/04/17 revealed (+) Erosive esophagitis w/ Erosive fundal gastritis, related to NG tube trauma. Nodular gastritis * s/p empiric Diflucan for concern esophagitis * 03/04 PATHO REPORT: Gastric biopsy:-- Reactive gastropathy, mild, with focal early acute mucosal erosion.-- No Helicobacter organisms are identified in a Giemsa stain (positive control concurrently reviewed).-- There is no evidence of malignancy 5. Non-ST elevation VA in setting sepsis + GIB 6. Parosysmal Afib w/RVR => Amiodarone 7. HTN Heart Disease w/diastolic HF * 2D ECHO: Mild concentric LVH w/ EF ~55 %l Stage I diastolic dysfunction. 8. Diabetes (-) MRSA Nares screen INVASIVES: L-SubC TLC, FC ABX ALLERGY: KNDA CURRENT ABX: => OFF ABX DAY #11 s/p 11 DAYS ABX: ZOSYN, Vanco IV, Diflucan ID PLAN: * Continue to monitor the patient OFF ABX, with repeat MICRO PRN clinical indicators of recurrent sepsis * CXR -> residual pulm edema. * Aspiration precautions, follow speech Tx recommendations * Increase mobility and strength w/PTx * PER NOTES REVIEWED: Code status: full code. * As per notes from bioethics meeting, sw and palliative still trying to reach pt's family in [id number] palliative care recommendations on this . Problems: Consultation Date/Type/Reason Admit Date/Time Mar 01, 2017 at 20:20 Initial Consult Date 03/04/17 Type of Consultation: ID Referring Provider: MICHELLE MORENO Exam/Review of Systems Vital Signs Vitals Vital Signs Date Time Temp Pulse Resp B/P Pulse Ox O2 Delivery O2 Flow Rate FiO2 03/21/17 12:29 98.0 77 18 121/62 98 03/21/17 08:07 50 03/21/17 08:00 Nasal Cannula 15.0 Intake and Output 03/20/17 03/20/17 03/21/17 15:00 23:00 07:00 Intake Total 700 ml 500 ml Balance 700 ml 500 ml Results Result Diagram: 03/19/17 0449 03/19/17 0449 Results 24 hrs Laboratory Tests Test 03/20/17 17:42 03/20/17 20:37 03/21/17 03:13 03/21/17 08:43 Bedside Glucose 252 H 223 H 201 156 Test 03/21/17 11:55 Bedside Glucose 244 H Medications Medications Current Medications Miscellaneous Information 1 ea NOTE XX ; Start 03/02/17 at 00:30 Glucose (Glutose) 15 gm Q15M PRN PO DECREASED GLUCOSE; Start 03/02/17 at 00:30 Glucose (Glutose) 22.5 gm Q15M PRN PO DECREASED GLUCOSE; Start 03/02/17 at 00: 30 Dextrose (D50w Syringe) 25 ml Q15M PRN IV DECREASED GLUCOSE; Start 03/02/17 at 00:30 Dextrose (D50w Syringe) 50 ml Q15M PRN IV DECREASED GLUCOSE; Start 03/02/17 at 00:30 Glucagon (Glucagen) 1 mg Q15M PRN IM DECREASED GLUCOSE; Start 03/02/17 at 00:30 Glucose (Glutose) 15 gm Q15M PRN BUCCAL DECREASED GLUCOSE; Start 03/02/17 at 00 :30 Aspirin (Halfprin) 81 mg DAILY PO Last administered on 03/18/17 08:09; Admin Dose 81 MG; Start 03/07/17 at 09:00; Status Future Hold Atorvastatin Calcium (Lipitor) 40 mg QHS PO Last administered on 03/20/17 21: 46; Admin Dose 40 MG; Start 03/06/17 at 21:00 Diclofenac Sodium (Voltaren) 75 mg DAILY PO Last administered on 03/21/17 08: 53; Admin Dose 75 MG; Start 03/07/17 at 09:00 Donepezil HCl (Aricept) 5 mg QHS PO Last administered on 03/19/17 22:25; Admin Dose 5 MG; Start 03/06/17 at 21:00 Morphine Sulfate (morphine) 3 mg Q4H PRN IV PAIN LEVEL 6-10 Last administered on 03/18/17 01:28; Admin Dose 3 MG; Start 03/12/17 at 00:00 Acetaminophen (Tylenol Tab) 325 mg Q4H PRN PO PAIN AND OR ELEVATED TEMP; Start 03/15/17 at 14:30 Pantoprazole (Protonix Tab) 40 mg BID@06,18 PO Last administered on 03/21/17 05:21; Admin Dose 40 MG; Start 03/15/17 at 18:00 Metoprolol Tartrate (Lopressor) 25 mg QID PO Last administered on 03/21/17 13: 03; Admin Dose 25 MG; Start 03/16/17 at 09:00 Potassium Chloride (Potassium Chloride Pwd/Soln) 40 meq DAILY PO Last administered on 03/21/17 08:53; Admin Dose 40 MEQ; Start 03/17/17 at 09:00 Insulin Glargine (Lantus) 15 unit DAILY@20 SC Last administered on 03/20/17 21 :48; Admin Dose 15 UNIT; Start 03/17/17 at 20:00 Diagnostic Test (Pha) (Accu-Chek) 1 ea 02 XX Last administered on 03/18/17 01: 34; Admin Dose 1 EA; Start 03/18/17 at 02:00 Apixaban (Eliquis) 2.5 mg BID PO Last administered on 03/21/17 08:53; Admin Dose 2.5 MG; Start 03/18/17 at 21:00 Hydralazine HCl (Apresoline) 10 mg Q6H PRN IV ELEVATED BLOOD PRESSURE Last administered on 03/20/17 05:06; Admin Dose 10 MG; Start 03/20/17 at 05:00 SUZY ISABEL NP Mar 21, 2017 14:46
--- NOTE | 2017-03-21 15:50 | PN ---
Date/Time of Note Date/Time of Note DATE: 03/21/17 TIME: 15:47 Assessment/Plan VTE Prophylaxis VTE Prophylaxis Intervention: other Lines/Catheters IV Catheter Type (from Rust): Saline Lock Urinary Cath still in place: No Reason Cath still needed: other (indicate) Assessment/Plan Chief Complaint/Hosp Course 1. P afib/ flutter with RVR: 2. acute hypoxemic respiratory failure: extubated now but still very hypoxemic 3. + troponin: c.w NSTEMI due to demand ischemia due to above 4. DM and severely elevated glucose: controlled with insulin 5. dyslipidemia 6. pneumonia/ sepsis 7. s/p shock : appear to be related to sepsis: currently off of levophed 8. hx memory impairment 9. anemia and GI bleed: stable now 10. hypo K. . will CONT eliquis 2.5 bid as long as ok with GI. off of plavix due to above cardizem drip prn cont METOPROLOL DM Control with insulin echo shows normal EF replace lytes including K and Mg prn. S/P diomox labs in AM THANK YOU. Problems: Subjective 24 Hr Interval Summary Free Text/Dictation CARDIOLOGY FOLLOW UP NOTE/ critical care note d/w staff in ICU and rhythm was reviewed. pt has remained in NSR pt is EXTUBATED 03/08 no more bleeding is reported. she denies any chest pain to me pt has been less hypoxemic and is out of ICU OBJECTIVE: General: no acute distress HEENT: NC/AT. pupils are constricted. round. NECK: NO JVD. no stridor. CV: irregularly irregular. systolic murmur; no gallop or rubs. PULM: + diffuse rhonchi. GI: SOFT, NT, ND, no rebound or guarding Extremity: trace B/L LE edema. no clubbing. neuro: sleepy Psych: calm now. rectal: deferred : deferred Exam/Review of Systems Vital Signs Vitals Vital Signs Date Time Temp Pulse Resp B/P Pulse Ox O2 Delivery O2 Flow Rate FiO2 03/21/17 12:29 98.0 77 18 121/62 98 03/21/17 08:07 50 03/21/17 08:00 Nasal Cannula 15.0 Intake and Output 03/20/17 03/20/17 03/21/17 15:00 23:00 07:00 Intake Total 700 ml 500 ml Balance 700 ml 500 ml Results Result Diagram: 03/19/17 0449 03/19/17 0449 Results 24 hrs Laboratory Tests Test 03/20/17 17:42 03/20/17 20:37 03/21/17 03:13 03/21/17 08:43 Bedside Glucose 252 H 223 H 201 156 Test 03/21/17 11:55 Bedside Glucose 244 H Medications Medications Current Medications Miscellaneous Information 1 ea NOTE XX ; Start 03/02/17 at 00:30 Glucose (Glutose) 15 gm Q15M PRN PO DECREASED GLUCOSE; Start 03/02/17 at 00:30 Glucose (Glutose) 22.5 gm Q15M PRN PO DECREASED GLUCOSE; Start 03/02/17 at 00: 30 Dextrose (D50w Syringe) 25 ml Q15M PRN IV DECREASED GLUCOSE; Start 03/02/17 at 00:30 Dextrose (D50w Syringe) 50 ml Q15M PRN IV DECREASED GLUCOSE; Start 03/02/17 at 00:30 Glucagon (Glucagen) 1 mg Q15M PRN IM DECREASED GLUCOSE; Start 03/02/17 at 00:30 Glucose (Glutose) 15 gm Q15M PRN BUCCAL DECREASED GLUCOSE; Start 03/02/17 at 00 :30 Aspirin (Halfprin) 81 mg DAILY PO Last administered on 03/18/17 08:09; Admin Dose 81 MG; Start 03/07/17 at 09:00; Status Future Hold Atorvastatin Calcium (Lipitor) 40 mg QHS PO Last administered on 03/20/17 21: 46; Admin Dose 40 MG; Start 03/06/17 at 21:00 Diclofenac Sodium (Voltaren) 75 mg DAILY PO Last administered on 03/21/17 08: 53; Admin Dose 75 MG; Start 03/07/17 at 09:00 Donepezil HCl (Aricept) 5 mg QHS PO Last administered on 03/19/17 22:25; Admin Dose 5 MG; Start 03/06/17 at 21:00 Morphine Sulfate (morphine) 3 mg Q4H PRN IV PAIN LEVEL 6-10 Last administered on 03/18/17 01:28; Admin Dose 3 MG; Start 03/12/17 at 00:00 Acetaminophen (Tylenol Tab) 325 mg Q4H PRN PO PAIN AND OR ELEVATED TEMP; Start 03/15/17 at 14:30 Pantoprazole (Protonix Tab) 40 mg BID@06,18 PO Last administered on 03/21/17 05:21; Admin Dose 40 MG; Start 03/15/17 at 18:00 Metoprolol Tartrate (Lopressor) 25 mg QID PO Last administered on 03/21/17 13: 03; Admin Dose 25 MG; Start 03/16/17 at 09:00 Potassium Chloride (Potassium Chloride Pwd/Soln) 40 meq DAILY PO Last administered on 03/21/17 08:53; Admin Dose 40 MEQ; Start 03/17/17 at 09:00 Insulin Glargine (Lantus) 15 unit DAILY@20 SC Last administered on 03/20/17 21 :48; Admin Dose 15 UNIT; Start 03/17/17 at 20:00 Diagnostic Test (Pha) (Accu-Chek) 1 ea 02 XX Last administered on 03/18/17 01: 34; Admin Dose 1 EA; Start 03/18/17 at 02:00 Apixaban (Eliquis) 2.5 mg BID PO Last administered on 03/21/17 08:53; Admin Dose 2.5 MG; Start 03/18/17 at 21:00 Hydralazine HCl (Apresoline) 10 mg Q6H PRN IV ELEVATED BLOOD PRESSURE Last administered on 03/20/17 05:06; Admin Dose 10 MG; Start 03/20/17 at 05:00 TYREE MCKOY MD Mar 21, 2017 15:50
[2017-03-21] MEDS: ATORVASTATIN 40 MG TAB PO SCH (22:14)
[2017-03-21] MEDS: DONEPEZIL 5 MG TAB PO SCH (22:14)
[2017-03-21] MEDS ORDERED: INSULIN LISPRO 100 UNIT/ML VIAL SC STA (22:41)
[2017-03-21] MEDS: INSULIN GLARGINE [LANtus] 3 ML PEN SC SCH (22:58)
[2017-03-21] MEDS ORDERED: INSULIN ASPART [NOVOLOG] 3 ML PEN SC ONE (23:00)
[2017-03-22] VITALS (12 sets, daily range): BP systolic 106–146; BP diastolic 50–69; PULSE 65–82; RESP 18–20
[2017-03-22] MEDS: ACCU-CHEK XX SCH (02:00)
[2017-03-22 06:24] LABS: BASOPHILS % 0.4 % (0.0-2.0); EOSINOPHILS # 0.5 10^3/ul (0.0-0.5); EOSINOPHILS % 6.9 % (0.0-7.0); HEMATOCRIT 35.6 % (37.0-47.0); HEMOGLOBIN 11.2 g/dl (12.0-16.0); LYMPHOCYTES # 2.2 10^3/ul (0.8-2.9); LYMPHOCYTES % 29.5 % (15.0-51.0); MEAN CORPUSCULAR HEMOGLOBIN 30.1 pg (29.0-33.0); MEAN CORPUSCULAR HGB CONC 31.5 g/dl (32.0-37.0); MEAN CORPUSCULAR VOLUME 95.7 fl (82.0-101.0); MEAN PLATELET VOLUME 11.1 fl (7.4-10.4); MONOCYTE # 0.8 10^3/ul (0.3-0.9); MONOCYTES % 10.6 % (0.0-11.0); NEUTROPHIL # 3.8 10^3/ul (1.6-7.5); NEUTROPHILS % 52.1 % (39.0-77.0); PLATELET COUNT 258 10^3/UL (140-415); RED BLOOD COUNT 3.72 10^6/ul (4.20-5.40); RED CELL DISTRIBUTION WIDTH 15.4 % (11.5-14.5); WHITE BLOOD COUNT 7.3 10^3/ul (4.8-10.8)
[2017-03-22] MEDS: FUROSEMIDE 40 MG INJ IV SCH ×2 (06:24→18:14)
[2017-03-22] MEDS: PANTOPRAZOLE (EC) 40 MG TAB PO SCH ×2 (06:24→18:14)
[2017-03-22 07:06] LABS: ALBUMIN 3.9 g/dl (3.3-4.9); ALBUMIN/GLOBULIN RATIO 1.05; BILIRUBIN,INDIRECT 0.4 mg/dl (0-1.1); BILIRUBIN,TOTAL 0.4 mg/dl (0.2-1.3); CALCIUM 9.6 mg/dl (8.4-10.2); CREATININE 1.26 mg/dl (0.44-1.00); MAGNESIUM 1.5 mg/dl (1.7-2.5); POTASSIUM 3.9 mmol/L (3.5-5.1); TOTAL PROTEIN 7.6 g/dl (6.1-8.1)
[2017-03-22] MEDS: INSULIN ASPART [NOVOLOG] 3 ML PEN SC SCH ×7 (08:34→20:47)
--- NOTE | 2017-03-22 08:58 | CONS ---
Date/Time of Note Date/Time of Note DATE: 03/22/17 TIME: 08:57 Assessment/Plan Assessment/Plan Additional Assessment/Plan Assessment and recommendations; 1. Patient admitted for bilateral pneumonia with significant clinical and radiological improvement. Off antibiotics. 2. Paroxysmal atrial fibrillation with RVR, currently in sinus rhythm with rate well controlled. Patient on long-term anticoagulation with apixaban. Continue current treatment. Consider discharge. Consultation Date/Type/Reason Admit Date/Time Mar 01, 2017 at 20:20 Initial Consult Date 03/08/17 Type of Consultation: Pulmonary Referring Provider: MICHELLE MORENO 24 HR Interval Summary Free Text/Dictation Patient condition stable. Remains awake alert. Has remained hemodynamically stable. Denies any shortness breath. Coughing. Wheezing. General exam; elderly woman, awake alert currently in no distress. Exam/Review of Systems Vital Signs Vitals Vital Signs Date Time Temp Pulse Resp B/P Pulse Ox O2 Delivery O2 Flow Rate FiO2 03/22/17 07:30 98.0 75 19 124/56 90 03/22/17 05:01 50 03/21/17 21:00 15.0 03/21/17 08:00 Nasal Cannula Intake and Output 03/21/17 03/21/17 03/22/17 15:00 23:00 07:00 Intake Total 700 ml Balance 700 ml Exam HEENT exam; supple neck, no JVD. No lymphadenopathy. Midline trachea. No thyromegaly. Chest exam; clear to auscultation. S1-S2 audible, no murmurs. Regular rhythm. Abdomen exam; soft, tender. No organomegaly. Bowel sounds audible. Extremity exam; no peripheral edema. [employer] exam; no focal deficit. Results Result Diagram: 03/22/17 0551 03/22/17 0551 Results 24 hrs Laboratory Tests Test 03/21/17 11:55 03/21/17 17:26 03/21/17 22:13 03/22/17 02:38 Bedside Glucose 244 H 244 H 339 H 171 Test 03/22/17 05:51 03/22/17 08:31 White Blood Count 7.3 # Red Blood Count 3.72 L Hemoglobin 11.2 L Hematocrit 35.6 L Mean Corpuscular Volume 95.7 Mean Corpuscular Hemoglobin 30.1 Mean Corpuscular Hemoglobin Concent 31.5 L Red Cell Distribution Width 15.4 H Platelet Count 258 Mean Platelet Volume 11.1 H Neutrophils % 52.1 Lymphocytes % 29.5 Monocytes % 10.6 Eosinophils % 6.9 Basophils % 0.4 Nucleated Red Blood Cells % 0.0 Neutrophils # 3.8 Lymphocytes # 2.2 Monocytes # 0.8 Eosinophils # 0.5 Basophils # 0.0 Nucleated Red Blood Cells # 0.0 Sodium Level 146 H Potassium Level 3.9 Chloride Level 98 Carbon Dioxide Level 36 H Anion Gap 16 Blood Urea Nitrogen 32 H Creatinine 1.26 H Glucose Level 117 Calcium Level 9.6 Magnesium Level 1.5 L Total Bilirubin 0.4 Direct Bilirubin 0.00 Indirect Bilirubin 0.4 Aspartate Amino Transf (AST/SGOT) 16 Alanine Aminotransferase (ALT/SGPT) 22 Alkaline Phosphatase 88 Total Protein 7.6 Albumin 3.9 Globulin 3.70 H Albumin/Globulin Ratio 1.05 Bedside Glucose 147 Medications Medications Current Medications Miscellaneous Information 1 ea NOTE XX ; Start 03/02/17 at 00:30 Glucose (Glutose) 15 gm Q15M PRN PO DECREASED GLUCOSE; Start 03/02/17 at 00:30 Glucose (Glutose) 22.5 gm Q15M PRN PO DECREASED GLUCOSE; Start 03/02/17 at 00: 30 Dextrose (D50w Syringe) 25 ml Q15M PRN IV DECREASED GLUCOSE; Start 03/02/17 at 00:30 Dextrose (D50w Syringe) 50 ml Q15M PRN IV DECREASED GLUCOSE; Start 03/02/17 at 00:30 Glucagon (Glucagen) 1 mg Q15M PRN IM DECREASED GLUCOSE; Start 03/02/17 at 00:30 Glucose (Glutose) 15 gm Q15M PRN BUCCAL DECREASED GLUCOSE; Start 03/02/17 at 00 :30 Aspirin (Halfprin) 81 mg DAILY PO Last administered on 03/18/17 08:09; Admin Dose 81 MG; Start 03/07/17 at 09:00; Status Future Hold Atorvastatin Calcium (Lipitor) 40 mg QHS PO Last administered on 03/21/17 22: 14; Admin Dose 40 MG; Start 03/06/17 at 21:00 Diclofenac Sodium (Voltaren) 75 mg DAILY PO Last administered on 03/21/17 08: 53; Admin Dose 75 MG; Start 03/07/17 at 09:00 Donepezil HCl (Aricept) 5 mg QHS PO Last administered on 03/21/17 22:14; Admin Dose 5 MG; Start 03/06/17 at 21:00 Morphine Sulfate (morphine) 3 mg Q4H PRN IV PAIN LEVEL 6-10 Last administered on 03/18/17 01:28; Admin Dose 3 MG; Start 03/12/17 at 00:00 Acetaminophen (Tylenol Tab) 325 mg Q4H PRN PO PAIN AND OR ELEVATED TEMP; Start 03/15/17 at 14:30 Pantoprazole (Protonix Tab) 40 mg BID@06,18 PO Last administered on 03/22/17 06 :24; Admin Dose 40 MG; Start 03/15/17 at 18:00 Metoprolol Tartrate (Lopressor) 25 mg QID PO Last administered on 03/21/17 22: 15; Admin Dose 25 MG; Start 03/16/17 at 09:00 Potassium Chloride (Potassium Chloride Pwd/Soln) 40 meq DAILY PO Last administered on 03/21/17 08:53; Admin Dose 40 MEQ; Start 03/17/17 at 09:00 Insulin Glargine (Lantus) 15 unit DAILY@20 SC Last administered on 03/21/17 22 :58; Admin Dose 15 UNIT; Start 03/17/17 at 20:00 Diagnostic Test (Pha) (Accu-Chek) 1 ea 02 XX Last administered on 03/18/17 01: 34; Admin Dose 1 EA; Start 03/18/17 at 02:00 Apixaban (Eliquis) 2.5 mg BID PO Last administered on 03/21/17 22:15; Admin Dose 2.5 MG; Start 03/18/17 at 21:00 Hydralazine HCl (Apresoline) 10 mg Q6H PRN IV ELEVATED BLOOD PRESSURE Last administered on 03/20/17 05:06; Admin Dose 10 MG; Start 03/20/17 at 05:00 ALFREDO BRUMFIELD Mar 22, 2017 08:58
[2017-03-22] MEDS: DICLOFENAC (EC) 75 MG TAB PO SCH (09:36)
[2017-03-22] MEDS: METOPROLOL 25 MG TAB PO SCH ×4 (09:36→20:46)
[2017-03-22] MEDS: POTASSIUM CHLORIDE 20 MEQ POWDER FOR ORAL SOLN PO SCH (09:37)
[2017-03-22] MEDS: APIXABAN 5 MG TABLET PO SCH ×2 (09:37→20:45)
--- NOTE | 2017-03-22 11:47 | PN ---
Date/Time of Note Date/Time of Note DATE: 03/22/17 TIME: 11:44 Assessment/Plan VTE Prophylaxis VTE Prophylaxis Intervention: other (Eliquis) Lines/Catheters IV Catheter Type (from Nrs): Saline Lock Urinary Cath still in place: No Assessment/Plan Chief Complaint/Hosp Course Assessment/Plan: 86 yo F with dementia admitted from facility for acute hypoxic respiratory failure and sepsis: likely 2/2 aspiration pneumonia. EXTUBATED 03/08, now recently transferred out of ICU. 1. acute hypoxic respiratory failure: 2/2 aspiration pna, now extubated. Continue duoneb's prn;sp abx repeat CTA without e/o PE or new infection. - cont weaning O2 as tolerated (presently on high flow oxygen) 2. Severe sepsis: from aspiration pna, ID following. Likely secondary to respiratory infection. sp abx, off these now -Monitor for now, follow-up ID recommendations 3. Tachycardia: afib with RVR vs sinus tach (fluctuates)-presently stable -cont bb, also on Eliquis for prophylaxis -ATC resumed 4. suspected fungal esophagitis: sp antifungal 5. diabetes mellitus: Continue insulin sliding scale. cont lantus 15 units, cont SSI 6. History of essential hypertension: ARB on hold 7. Questionable GI bleed: sp EGD 7.15, +gastritis -cont PO PPI - ST following 8. DVT and GI prophylaxis: SCDs, Protonix 9. hyperthyroid : 7.13 labs notable for hyperthyroid (TSH low, t4 high)--> consider post discharge fu with PCP 10. hypernatremia - resolved 11. gastritis/esophagitis: Seen on EGD 7.14. cont high dose PPI. consider discussing with GI when PPI regimen can be de escalated Code status: full code. As per notes from bioethics meeting, sw and palliative still trying to reach pt's family in [id number] palliative care recommendations on this ARU cs [id number] with case management manager on this Problems: Subjective 24 Hr Interval Summary Free Text/Dictation Attempted to work with physical therapy earlier today. Apparently family still not able to be contacted in [facility] as bioethics meeting was attempted yesterday. Otherwise no acute events overnight. Exam/Review of Systems Vital Signs Vitals Vital Signs Date Time Temp Pulse Resp B/P Pulse Ox O2 Delivery O2 Flow Rate FiO2 03/22/17 11:33 93 50 03/22/17 11:15 98.4 74 19 146/62 03/21/17 21:00 15.0 03/21/17 08:00 Nasal Cannula Intake and Output 03/21/17 03/21/17 03/22/17 15:00 23:00 07:00 Intake Total 700 ml Balance 700 ml Exam Lying in bed, on high flow oxygen, no acute distress no mrg lungs clear abd soft no rashes No focal deficits Results Result Diagram: 03/22/17 0551 03/22/17 0551 Results 24 hrs Laboratory Tests Test 03/21/17 11:55 03/21/17 17:26 03/21/17 22:13 03/22/17 02:38 Bedside Glucose 244 H 244 H 339 H 171 Test 03/22/17 05:51 03/22/17 08:31 White Blood Count 7.3 # Red Blood Count 3.72 L Hemoglobin 11.2 L Hematocrit 35.6 L Mean Corpuscular Volume 95.7 Mean Corpuscular Hemoglobin 30.1 Mean Corpuscular Hemoglobin Concent 31.5 L Red Cell Distribution Width 15.4 H Platelet Count 258 Mean Platelet Volume 11.1 H Neutrophils % 52.1 Lymphocytes % 29.5 Monocytes % 10.6 Eosinophils % 6.9 Basophils % 0.4 Nucleated Red Blood Cells % 0.0 Neutrophils # 3.8 Lymphocytes # 2.2 Monocytes # 0.8 Eosinophils # 0.5 Basophils # 0.0 Nucleated Red Blood Cells # 0.0 Sodium Level 146 H Potassium Level 3.9 Chloride Level 98 Carbon Dioxide Level 36 H Anion Gap 16 Blood Urea Nitrogen 32 H Creatinine 1.26 H Glucose Level 117 Calcium Level 9.6 Magnesium Level 1.5 L Total Bilirubin 0.4 Direct Bilirubin 0.00 Indirect Bilirubin 0.4 Aspartate Amino Transf (AST/SGOT) 16 Alanine Aminotransferase (ALT/SGPT) 22 Alkaline Phosphatase 88 Total Protein 7.6 Albumin 3.9 Globulin 3.70 H Albumin/Globulin Ratio 1.05 Bedside Glucose 147 Medications Medications Current Medications Miscellaneous Information 1 ea NOTE XX ; Start 03/02/17 at 00:30 Glucose (Glutose) 15 gm Q15M PRN PO DECREASED GLUCOSE; Start 03/02/17 at 00:30 Glucose (Glutose) 22.5 gm Q15M PRN PO DECREASED GLUCOSE; Start 03/02/17 at 00: 30 Dextrose (D50w Syringe) 25 ml Q15M PRN IV DECREASED GLUCOSE; Start 03/02/17 at 00:30 Dextrose (D50w Syringe) 50 ml Q15M PRN IV DECREASED GLUCOSE; Start 03/02/17 at 00:30 Glucagon (Glucagen) 1 mg Q15M PRN IM DECREASED GLUCOSE; Start 03/02/17 at 00:30 Glucose (Glutose) 15 gm Q15M PRN BUCCAL DECREASED GLUCOSE; Start 03/02/17 at 00 :30 Aspirin (Halfprin) 81 mg DAILY PO Last administered on 03/18/17 08:09; Admin Dose 81 MG; Start 03/07/17 at 09:00; Status Future Hold Atorvastatin Calcium (Lipitor) 40 mg QHS PO Last administered on 03/21/17 22: 14; Admin Dose 40 MG; Start 03/06/17 at 21:00 Diclofenac Sodium (Voltaren) 75 mg DAILY PO Last administered on 03/22/17 09:36 ; Admin Dose 75 MG; Start 03/07/17 at 09:00 Donepezil HCl (Aricept) 5 mg QHS PO Last administered on 03/21/17 22:14; Admin Dose 5 MG; Start 03/06/17 at 21:00 Morphine Sulfate (morphine) 3 mg Q4H PRN IV PAIN LEVEL 6-10 Last administered on 03/18/17 01:28; Admin Dose 3 MG; Start 03/12/17 at 00:00 Acetaminophen (Tylenol Tab) 325 mg Q4H PRN PO PAIN AND OR ELEVATED TEMP; Start 03/15/17 at 14:30 Pantoprazole (Protonix Tab) 40 mg BID@06,18 PO Last administered on 03/22/17 06 :24; Admin Dose 40 MG; Start 03/15/17 at 18:00 Metoprolol Tartrate (Lopressor) 25 mg QID PO Last administered on 03/22/17 09: 36; Admin Dose 25 MG; Start 03/16/17 at 09:00 Potassium Chloride (Potassium Chloride Pwd/Soln) 40 meq DAILY PO Last administered on 03/22/17 09:37; Admin Dose 40 MEQ; Start 03/17/17 at 09:00 Insulin Glargine (Lantus) 15 unit DAILY@20 SC Last administered on 03/21/17 22 :58; Admin Dose 15 UNIT; Start 03/17/17 at 20:00 Diagnostic Test (Pha) (Accu-Chek) 1 ea 02 XX Last administered on 03/18/17 01: 34; Admin Dose 1 EA; Start 03/18/17 at 02:00 Apixaban (Eliquis) 2.5 mg BID PO Last administered on 03/22/17 09:37; Admin Dose 2.5 MG; Start 03/18/17 at 21:00 Hydralazine HCl 10 mg 10 mg Q6H PRN IV ELEVATED BLOOD PRESSURE Last administered on 03/20/17 05:06; Admin Dose 10 MG; Start 03/20/17 at 05:00 Magnesium Sulfate (Magnesium Sulfate 2 Gm/50 ml) 50 ml @ 25 mls/hr ONCE ONCE IVPB ; Start 03/22/17 at 12:00; Stop 03/22/17 at 13:59 FERNANDO DIMAS Mar 22, 2017 11:47
[2017-03-22] MEDS ORDERED: MAGNESIUM SULFATE 2 GM/50 ML 50 ML IVPB ONE (12:00)
--- NOTE | 2017-03-22 13:57 | PN ---
Date/Time of Note Date/Time of Note DATE: 03/22/17 TIME: 13:55 Assessment/Plan VTE Prophylaxis VTE Prophylaxis Intervention: other Lines/Catheters IV Catheter Type (from [facility]): Saline Lock Urinary Cath still in place: No Assessment/Plan Chief Complaint/Hosp Course 1. P afib/ flutter with RVR: currently is back to NSR 2. acute hypoxemic respiratory failure: extubated now but still requires high flow O2 3. + troponin: c.w NSTEMI due to demand ischemia due to above 4. DM and severely elevated glucose: controlled with insulin 5. dyslipidemia 6. pneumonia/ sepsis 7. s/p shock : appear to be related to sepsis: currently off of levophed 8. hx memory impairment 9. anemia and GI bleed: stable now 10. hypo K. hypo Mg . will CONT eliquis 2.5 bid as long as ok with GI. off of plavix due to above cardizem drip prn cont METOPROLOL DM Control with insulin echo shows normal EF replace lytes including K and Mg prn. THANK YOU. Problems: Subjective 24 Hr Interval Summary Free Text/Dictation CARDIOLOGY FOLLOW UP NOTE d/w staff and rhythm was reviewed. pt has remained in NSR pt is EXTUBATED 03/08 no more bleeding is reported. she denies any chest pain to me pt has been less hypoxemic and is out of ICU BUT still requires high flow O2 OBJECTIVE: General: no acute distress HEENT: NC/AT. pupils are round. NECK: NO JVD. no stridor. CV: RRR. systolic murmur; no gallop or rubs. PULM: + diffuse rhonchi. GI: SOFT, NT, ND, no rebound or guarding Extremity: trace B/L LE edema. no clubbing. neuro: sleepy Psych: calm now. rectal: deferred : deferred Exam/Review of Systems Vital Signs Vitals Vital Signs Date Time Temp Pulse Resp B/P Pulse Ox O2 Delivery O2 Flow Rate FiO2 03/22/17 12:43 82 03/22/17 11:33 93 50 03/22/17 11:15 98.4 19 146/62 03/21/17 21:00 15.0 03/21/17 08:00 Nasal Cannula Intake and Output 03/21/17 03/21/17 03/22/17 15:00 23:00 07:00 Intake Total 700 ml Balance 700 ml Results Result Diagram: 03/22/17 0551 03/22/17 0551 Results 24 hrs Laboratory Tests Test 03/21/17 17:26 03/21/17 22:13 03/22/17 02:38 03/22/17 05:51 Bedside Glucose 244 H 339 H 171 White Blood Count 7.3 # Red Blood Count 3.72 L Hemoglobin 11.2 L Hematocrit 35.6 L Mean Corpuscular Volume 95.7 Mean Corpuscular Hemoglobin 30.1 Mean Corpuscular Hemoglobin Concent 31.5 L Red Cell Distribution Width 15.4 H Platelet Count 258 Mean Platelet Volume 11.1 H Neutrophils % 52.1 Lymphocytes % 29.5 Monocytes % 10.6 Eosinophils % 6.9 Basophils % 0.4 Nucleated Red Blood Cells % 0.0 Neutrophils # 3.8 Lymphocytes # 2.2 Monocytes # 0.8 Eosinophils # 0.5 Basophils # 0.0 Nucleated Red Blood Cells # 0.0 Sodium Level 146 H Potassium Level 3.9 Chloride Level 98 Carbon Dioxide Level 36 H Anion Gap 16 Blood Urea Nitrogen 32 H Creatinine 1.26 H Glucose Level 117 Calcium Level 9.6 Magnesium Level 1.5 L Total Bilirubin 0.4 Direct Bilirubin 0.00 Indirect Bilirubin 0.4 Aspartate Amino Transf (AST/SGOT) 16 Alanine Aminotransferase (ALT/SGPT) 22 Alkaline Phosphatase 88 Total Protein 7.6 Albumin 3.9 Globulin 3.70 H Albumin/Globulin Ratio 1.05 Test 03/22/17 08:31 03/22/17 12:08 Bedside Glucose 147 198 Medications Medications Current Medications Miscellaneous Information 1 ea NOTE XX ; Start 03/02/17 at 00:30 Glucose (Glutose) 15 gm Q15M PRN PO DECREASED GLUCOSE; Start 03/02/17 at 00:30 Glucose (Glutose) 22.5 gm Q15M PRN PO DECREASED GLUCOSE; Start 03/02/17 at 00: 30 Dextrose (D50w Syringe) 25 ml Q15M PRN IV DECREASED GLUCOSE; Start 03/02/17 at 00:30 Dextrose (D50w Syringe) 50 ml Q15M PRN IV DECREASED GLUCOSE; Start 03/02/17 at 00:30 Glucagon (Glucagen) 1 mg Q15M PRN IM DECREASED GLUCOSE; Start 03/02/17 at 00:30 Glucose (Glutose) 15 gm Q15M PRN BUCCAL DECREASED GLUCOSE; Start 03/02/17 at 00 :30 Aspirin (Halfprin) 81 mg DAILY PO Last administered on 03/18/17 08:09; Admin Dose 81 MG; Start 03/07/17 at 09:00; Status Future Hold Atorvastatin Calcium (Lipitor) 40 mg QHS PO Last administered on 03/21/17 22: 14; Admin Dose 40 MG; Start 03/06/17 at 21:00 Diclofenac Sodium (Voltaren) 75 mg DAILY PO Last administered on 03/22/17 09:36 ; Admin Dose 75 MG; Start 03/07/17 at 09:00 Donepezil HCl (Aricept) 5 mg QHS PO Last administered on 03/21/17 22:14; Admin Dose 5 MG; Start 03/06/17 at 21:00 Morphine Sulfate (morphine) 3 mg Q4H PRN IV PAIN LEVEL 6-10 Last administered on 03/18/17 01:28; Admin Dose 3 MG; Start 03/12/17 at 00:00 Acetaminophen (Tylenol Tab) 325 mg Q4H PRN PO PAIN AND OR ELEVATED TEMP; Start 03/15/17 at 14:30 Pantoprazole (Protonix Tab) 40 mg BID@06,18 PO Last administered on 03/22/17 06 :24; Admin Dose 40 MG; Start 03/15/17 at 18:00 Metoprolol Tartrate (Lopressor) 25 mg QID PO Last administered on 03/22/17 09: 36; Admin Dose 25 MG; Start 03/16/17 at 09:00 Potassium Chloride (Potassium Chloride Pwd/Soln) 40 meq DAILY PO Last administered on 03/22/17 09:37; Admin Dose 40 MEQ; Start 03/17/17 at 09:00 Insulin Glargine (Lantus) 15 unit DAILY@20 SC Last administered on 03/21/17 22 :58; Admin Dose 15 UNIT; Start 03/17/17 at 20:00 Diagnostic Test (Pha) (Accu-Chek) 1 ea 02 XX Last administered on 03/18/17 01: 34; Admin Dose 1 EA; Start 03/18/17 at 02:00 Apixaban (Eliquis) 2.5 mg BID PO Last administered on 03/22/17 09:37; Admin Dose 2.5 MG; Start 03/18/17 at 21:00 Hydralazine HCl 10 mg 10 mg Q6H PRN IV ELEVATED BLOOD PRESSURE Last administered on 03/20/17 05:06; Admin Dose 10 MG; Start 03/20/17 at 05:00 Magnesium Sulfate (Magnesium Sulfate 2 Gm/50 ml) 50 ml @ 25 mls/hr ONCE ONCE IVPB ; Start 03/22/17 at 12:00; Stop 03/22/17 at 13:59 TYREE MCKOY MD Mar 22, 2017 13:57
[2017-03-22] MEDS: INSULIN GLARGINE [LANtus] 3 ML PEN SC SCH (20:45)
[2017-03-22] MEDS: ATORVASTATIN 40 MG TAB PO SCH (20:45)
[2017-03-22] MEDS: DONEPEZIL 5 MG TAB PO SCH (20:45)
[2017-03-23] VITALS (11 sets, daily range): BP systolic 90–126; BP diastolic 38–70; PULSE 63–95; RESP 18–22
[2017-03-23] MEDS: ACCU-CHEK XX SCH (02:00)
[2017-03-23] MEDS: FUROSEMIDE 40 MG INJ IV SCH ×2 (05:10→18:00)
[2017-03-23] MEDS: PANTOPRAZOLE (EC) 40 MG TAB PO SCH ×2 (05:10→18:21)
[2017-03-23 07:51] LABS: BASOPHILS % 0.6 % (0.0-2.0); EOSINOPHILS # 0.4 10^3/ul (0.0-0.5); EOSINOPHILS % 6.6 % (0.0-7.0); HEMOGLOBIN 11.4 g/dl (12.0-16.0); LYMPHOCYTES % 30.6 % (15.0-51.0); MEAN CORPUSCULAR HGB CONC 30.8 g/dl (32.0-37.0); MEAN CORPUSCULAR VOLUME 97.4 fl (82.0-101.0); MEAN PLATELET VOLUME 11.5 fl (7.4-10.4); MONOCYTE # 0.6 10^3/ul (0.3-0.9); MONOCYTES % 8.9 % (0.0-11.0); NEUTROPHIL # 3.5 10^3/ul (1.6-7.5); PLATELET COUNT 258 10^3/UL (140-415); RED CELL DISTRIBUTION WIDTH 15.8 % (11.5-14.5); WHITE BLOOD COUNT 6.5 10^3/ul (4.8-10.8)
[2017-03-23] MEDS: INSULIN ASPART [NOVOLOG] 3 ML PEN SC SCH ×7 (07:55→21:00)
[2017-03-23] MEDS: LEVALBUTEROL (NEB) 0.63 MG/3 ML AMP HHN PRN ×2 (07:56→15:17)
[2017-03-23] MEDS: IPRATROPIUM (NEB) 0.5 MG/2.5 ML AMP HHN PRN ×2 (07:56→15:17)
--- NOTE | 2017-03-23 08:04 | PN ---
Date/Time of Note Date/Time of Note DATE: 03/23/17 TIME: 08:02 Assessment/Plan VTE Prophylaxis VTE Prophylaxis Intervention: other Lines/Catheters [facility] Saline Lock Urinary Cath still in place: No Reason Cath still needed: other (indicate) Assessment/Plan Chief Complaint/Hosp Course 1. P afib/ flutter with RVR: currently is back to NSR 2. acute hypoxemic respiratory failure: extubated now but still requires high flow O2 3. + troponin: c.w NSTEMI due to demand ischemia due to above 4. DM and severely elevated glucose: controlled with insulin now 5. dyslipidemia 6. pneumonia 7. s/p shock : appear to be related to sepsis: currently off of levophed 8. hx memory impairment 9. anemia and GI bleed: stable now 10. hypo K. hypo Mg . will CONT eliquis 2.5 bid as long as ok with GI. off of plavix due to above cardizem drip prn cont METOPROLOL DM Control with insulin echo shows normal EF replace lytes including K and Mg prn. f/u chem today and adjust. THANK YOU. Problems: Subjective 24 Hr Interval Summary Free Text/Dictation CARDIOLOGY FOLLOW UP NOTE d/w staff and rhythm was reviewed. pt has remained in NSR pt is EXTUBATED 03/08 no more bleeding is reported. she denies any chest pain to me pt IS STILL HYPOXEMIC and still requires high flow O2 OBJECTIVE: General: no acute distress HEENT: NC/AT. pupils are round. NECK: NO JVD. no stridor. CV: RRR. systolic murmur; no gallop or rubs. PULM: + diffuse rhonchi. GI: SOFT, NT, ND, no rebound or guarding Extremity: trace B/L LE edema. no clubbing. neuro: sleepy Psych: calm now. rectal: deferred : deferred Exam/Review of Systems Vital Signs Vitals Vital Signs Date Time Temp Pulse Resp B/P Pulse Ox O2 Delivery O2 Flow Rate FiO2 03/23/17 07:57 84 20 96 03/23/17 07:57 50 03/23/17 07:36 98.1 108/39 03/22/17 08:00 Vapotherm 03/21/17 21:00 15.0 Intake and Output 03/22/17 03/22/1717 15:00 23:00 07:00 Intake Total 500 ml 100 ml Balance 500 ml 100 ml Results Result Diagram: 03/23/17 0722 03/22/17 0551 Results 24 hrs Laboratory Tests Test 03/22/17 08:31 03/22/17 12:08 03/22/17 17:31 03/22/17 20:42 Bedside Glucose 147 198 114 114 Test 03/23/17 07:22 White Blood Count 6.5 Red Blood Count 3.80 L Hemoglobin 11.4 L Hematocrit 37.0 Mean Corpuscular Volume 97.4 Mean Corpuscular Hemoglobin 30.0 Mean Corpuscular Hemoglobin Concent 30.8 L Red Cell Distribution Width 15.8 H Platelet Count 258 Mean Platelet Volume 11.5 H Neutrophils % 53.0 Lymphocytes % 30.6 Monocytes % 8.9 Eosinophils % 6.6 Basophils % 0.6 Nucleated Red Blood Cells % 0.0 Neutrophils # 3.5 Lymphocytes # 2.0 Monocytes # 0.6 Eosinophils # 0.4 Basophils # 0.0 Nucleated Red Blood Cells # 0.0 Medications Medications Current Medications Miscellaneous Information 1 ea NOTE XX ; Start 03/02/17 at 00:30 Glucose (Glutose) 15 gm Q15M PRN PO DECREASED GLUCOSE; Start 03/02/17 at 00:30 Glucose (Glutose) 22.5 gm Q15M PRN PO DECREASED GLUCOSE; Start 03/02/17 at 00: 30 Dextrose (D50w Syringe) 25 ml Q15M PRN IV DECREASED GLUCOSE; Start 03/02/17 at 00:30 Dextrose (D50w Syringe) 50 ml Q15M PRN IV DECREASED GLUCOSE; Start 03/02/17 at 00:30 Glucagon (Glucagen) 1 mg Q15M PRN IM DECREASED GLUCOSE; Start 03/02/17 at 00:30 Glucose (Glutose) 15 gm Q15M PRN BUCCAL DECREASED GLUCOSE; Start 03/02/17 at 00 :30 Aspirin (Halfprin) 81 mg DAILY PO Last administered on 03/18/17 08:09; Admin Dose 81 MG; Start 03/07/17 at 09:00; Status Future Hold Atorvastatin Calcium (Lipitor) 40 mg QHS PO Last administered on 03/22/17 20:45 ; Admin Dose 40 MG; Start 03/06/17 at 21:00 Diclofenac Sodium (Voltaren) 75 mg DAILY PO Last administered on 03/22/17 09:36 ; Admin Dose 75 MG; Start 03/07/17 at 09:00 Donepezil HCl (Aricept) 5 mg QHS PO Last administered on 03/22/17 20:45; Admin Dose 5 MG; Start 03/06/17 at 21:00 Morphine Sulfate (morphine) 3 mg Q4H PRN IV PAIN LEVEL 6-10 Last administered on 03/18/17 01:28; Admin Dose 3 MG; Start 03/12/17 at 00:00 Acetaminophen (Tylenol Tab) 325 mg Q4H PRN PO PAIN AND OR ELEVATED TEMP; Start 03/15/17 at 14:30 Pantoprazole (Protonix Tab) 40 mg BID@06,18 PO Last administered on 03/23/17 05 :10; Admin Dose 40 MG; Start 03/15/17 at 18:00 Metoprolol Tartrate (Lopressor) 25 mg QID PO Last administered on 03/22/17 18: 53; Admin Dose 25 MG; Start 03/16/17 at 09:00 Potassium Chloride (Potassium Chloride Pwd/Soln) 40 meq DAILY PO Last administered on 03/22/17 09:37; Admin Dose 40 MEQ; Start 03/17/17 at 09:00 Insulin Glargine (Lantus) 15 unit DAILY@20 SC Last administered on 03/22/17 20: 45; Admin Dose 15 UNIT; Start 03/17/17 at 20:00 Diagnostic Test (Pha) (Accu-Chek) 1 ea 02 XX Last administered on 03/18/17 01: 34; Admin Dose 1 EA; Start 03/18/17 at 02:00 Apixaban (Eliquis) 2.5 mg BID PO Last administered on 03/22/17 20:45; Admin Dose 2.5 MG; Start 03/18/17 at 21:00 Hydralazine HCl (Apresoline) 10 mg Q6H PRN IV ELEVATED BLOOD PRESSURE Last administered on 03/20/17 05:06; Admin Dose 10 MG; Start 03/20/17 at 05:00 TYREE MCKOY MD Mar 23, 2017 08:04
[2017-03-23 08:23] LABS: ALBUMIN 3.9 g/dl (3.3-4.9); ALBUMIN/GLOBULIN RATIO 0.97; BILIRUBIN,INDIRECT 0.3 mg/dl (0-1.1); BILIRUBIN,TOTAL 0.3 mg/dl (0.2-1.3); CALCIUM 9.8 mg/dl (8.4-10.2); CREATININE 1.11 mg/dl (0.44-1.00); MAGNESIUM 2.1 mg/dl (1.7-2.5); PHOSPHORUS 4.2 mg/dl (2.5-4.9); POTASSIUM 4.4 mmol/L (3.5-5.1); TOTAL PROTEIN 7.9 g/dl (6.1-8.1)
[2017-03-23] MEDS: APIXABAN 5 MG TABLET PO SCH ×2 (09:29→21:38)
[2017-03-23] MEDS: DICLOFENAC (EC) 75 MG TAB PO SCH (09:30)
[2017-03-23] MEDS: POTASSIUM CHLORIDE 20 MEQ POWDER FOR ORAL SOLN PO SCH (09:30)
[2017-03-23] MEDS: METOPROLOL 25 MG TAB PO SCH ×4 (09:36→21:00)
--- NOTE | 2017-03-23 11:33 | PDOCDIS ---
Discharge Instructions CONDITION Patient Condition: Stable HOME CARE INSTRUCTIONS: Special Diet: FERNANDO RIVERS Mar 23, 2017 11:33
--- NOTE | 2017-03-23 11:38 | DS ---
Date/Time of Note Date/Time of Note DATE: 03/23/17 TIME: 11:34 Discharge Summary Admission/Discharge Info Admit Date/Time Mar 01, 2017 at 20:20 Discharge Date/Time Patient Condition: Stable Hx of Present Illness Chief complaint: Shortness of breath, cough The following information below was obtained from the ED physician documentation. This . Allergies: NKDA Medications: See MAR Hospital Course 86-year-old female presented to the emergency room for evaluation of shortness of breath and a cough productive of yellow phlegm. According to the patient and the patient's family member was at bedside this patient has had the symptoms for 2 days duration prior to admission. She denied any fevers associated with them but does state that she is feeling short of breath. The patient does have a history of hypertension, hyperlipidemia, and diabetes. She denies any aggravating or relieving factors for her symptoms and came to the emergency room for evaluation. After returning from the CAT scan, patient decompensated and was obtunded and it was necessary to intubate her. Patient was then subsequently admitted to the ICU. She was seen by multiple specialists during this hospital stay, including cardiology, pulmonary, infectious disease, palliative care teams. She initially was intubated because of respiratory failure and had severe sepsis, both secondary to aspiration pneumonia. She was placed on antibiotics. There was a questionable GI bleed, patient had EGD on February 24, [id number], there was findings of gastritis. She also suffered from atrial fibrillation with RVR, helped to be treated by cardiology team. Eventually was started on low-dose Eliquis as well when she had no signs of any GI bleeding. Over the course of her hospital stay, her respiratory status improved, she was able to be extubated. She still required high flow oxygen. This was helped managed by pulmonary team. Bioethics team was also consulted as there was a problem trying to get a hold of family members , they were thought to be in [facility]. However there was no correct phone number given. Palliative care team helped with trying to contact family members for this, but again we were unsuccessful. Patient will need to follow- up with her regular doctor in the clinic in the next 1 week, and will be followed by art consultant teams while the patient is at the [facility]. 1. P afib/ flutter with RVR: currently is back to NSR 2. acute hypoxemic respiratory failure: extubated now but still requires high flow O2 3. + troponin: c.w NSTEMI due to demand ischemia due to above 4. DM and severely elevated glucose: controlled with insulin now 5. dyslipidemia 6. pneumonia 7. s/p shock : appear to be related to sepsis: currently off of levophed 8. hx memory impairment 9. anemia and GI bleed: stable now 10. hypo K. hypo Mg . will CONT eliquis 2.5 bid as long as ok with GI. off of plavix due to above cardizem drip prn cont METOPROLOL DM Control with insulin echo shows normal EF replace lytes including K and Mg prn. f/u chem today and adjust. THANK YOU. Home Meds Reported Medications Insulin Degludec (Tresiba Flextouch U-200) 200 Unit/1 Ml Insuln.pen, 34 UNIT SQ QAM 03/01/17 Sitagliptin* (Januvia*) 100 Mg Tablet, 100 MG PO QAM, #30 TAB 03/01/17 Metformin Hcl* (Metformin Hcl* ER) 750 Mg Tab.sr.24h, 750 MG PO QAM, #30 TAB 03/01/17 Atorvastatin* (Atorvastatin*) 40 Mg Tablet, 40 MG PO QHS, #30 TAB 03/01/17 Donepezil* (Aricept*) 5 Mg Tablet, 5 MG PO QHS, TAB 03/01/17 Diclofenac Sodium* (Diclofenac Sodium*) 75 Mg Tablet.dr, 75 MG PO DAILY, #60 TAB 03/01/17 Aspirin* (Aspirin* EC) 81 Mg Tablet.dr, 81 MG PO DAILY, TAB 03/01/17 Valsartan* (Diovan*) 80 Mg Tablet, 80 MG PO DAILY, TAB 03/01/17 Primary Care Provider Doris Diehl MD Time spent on discharge: > 30 minutes Pending Labs Laboratory Tests Test 03/22/17 12:08 03/22/17 17:31 03/22/17 20:42 03/23/17 07:22 Bedside Glucose 198mg/dL (70-220) 114mg/dL (70-220) 114mg/dL (70-220) White Blood Count 6.510^3/ul (4.8-10.8) Red Blood Count 3.8010^6/ul (4.20-5.40) Hemoglobin 11.4g/dl (12.0-16.0) Hematocrit 37.0% (37.0-47.0) Mean Corpuscular Volume 97.4fl (82.0-101.0) Mean Corpuscular Hemoglobin 30.0pg (29.0-33.0) Mean Corpuscular Hemoglobin Concent 30.8g/dl (32.0-37.0) Red Cell Distribution Width 15.8% (11.5-14.5) Platelet Count 98294^3/UL (140-415) Mean Platelet Volume 11.5fl (7.4-10.4) Neutrophils % 53.0% (39.0-77.0) Lymphocytes % 30.6% (15.0-51.0) Monocytes % 8.9% (0.0-11.0) Eosinophils % 6.6% (0.0-7.0) Basophils % 0.6% (0.0-2.0) Nucleated Red Blood Cells % 0.0/100WBC (0.0-0.0) Neutrophils # 3.510^3/ul (1.6-7.5) Lymphocytes # 2.010^3/ul (0.8-2.9) Monocytes # 0.610^3/ul (0.3-0.9) Eosinophils # 0.410^3/ul (0.0-0.5) Basophils # 0.010^3/ul (0.0-0.1) Nucleated Red Blood Cells # 0.010^3/ul (0.0-0.0) Sodium Level 146mmol/L (135-144) Potassium Level 4.4mmol/L (3.5-5.1) Chloride Level 97mmol/L (97-110) Carbon Dioxide Level 34mmol/L (21-31) Anion Gap 19 (8-16) Blood Urea Nitrogen 35mg/dl (7-20) Creatinine 1.11mg/dl (0.44-1.00) Glucose Level 114mg/dl (70-220) Calcium Level 9.8mg/dl (8.4-10.2) Phosphorus Level 4.2mg/dl (2.5-4.9) Magnesium Level 2.1mg/dl (1.7-2.5) Total Bilirubin 0.3mg/dl (0.2-1.3) Direct Bilirubin 0.00mg/dl (0.00-0.20) Indirect Bilirubin 0.3mg/dl (0-1.1) Aspartate Amino Transf (AST/SGOT) 21IU/L (15-46) Alanine Aminotransferase (ALT/SGPT) 26IU/L (13-69) Alkaline Phosphatase 92IU/L (42-121) Total Protein 7.9g/dl (6.1-8.1) Albumin 3.9g/dl (3.3-4.9) Globulin 4.00g/dl (1.3-3.2) Albumin/Globulin Ratio 0.97 Test 03/23/17 08:25 Bedside Glucose 104mg/dL (70-220) FERNANDO DIMAS Mar 23, 2017 11:38
[2017-03-23] MEDS: ATORVASTATIN 40 MG TAB PO SCH (21:38)
[2017-03-23] MEDS: DONEPEZIL 5 MG TAB PO SCH (21:38)
[2017-03-23] MEDS: INSULIN GLARGINE [LANtus] 3 ML PEN SC SCH (21:43)
[2017-03-24] VITALS (11 sets, daily range): BP systolic 93–121; BP diastolic 43–73; PULSE 66–82; RESP 16–21
[2017-03-24] MEDS: ACCU-CHEK XX SCH (02:00)
[2017-03-24] MEDS: PANTOPRAZOLE (EC) 40 MG TAB PO SCH ×2 (06:15→17:46)
[2017-03-24] MEDS: FUROSEMIDE 40 MG INJ IV SCH ×2 (06:15→17:47)
[2017-03-24 07:41] LABS: BASOPHILS % 0.7 % (0.0-2.0); EOSINOPHILS # 0.4 10^3/ul (0.0-0.5); EOSINOPHILS % 6.7 % (0.0-7.0); HEMATOCRIT 36.6 % (37.0-47.0); HEMOGLOBIN 11.3 g/dl (12.0-16.0); LYMPHOCYTES # 1.7 10^3/ul (0.8-2.9); LYMPHOCYTES % 28.7 % (15.0-51.0); MEAN CORPUSCULAR HEMOGLOBIN 30.5 pg (29.0-33.0); MEAN CORPUSCULAR HGB CONC 30.9 g/dl (32.0-37.0); MEAN CORPUSCULAR VOLUME 98.7 fl (82.0-101.0); MEAN PLATELET VOLUME 11.7 fl (7.4-10.4); MONOCYTE # 0.6 10^3/ul (0.3-0.9); NEUTROPHIL # 3.2 10^3/ul (1.6-7.5); NEUTROPHILS % 53.4 % (39.0-77.0); PLATELET COUNT 251 10^3/UL (140-415); RED BLOOD COUNT 3.71 10^6/ul (4.20-5.40); RED CELL DISTRIBUTION WIDTH 15.6 % (11.5-14.5)
--- NOTE | 2017-03-24 08:05 | PN ---
Date/Time of Note Date/Time of Note DATE: 03/24/17 TIME: 08:04 Assessment/Plan VTE Prophylaxis VTE Prophylaxis Intervention: other Lines/Catheters [facility] Urinary Cath still in place: No Assessment/Plan Chief Complaint/Hosp Course 1. P afib/ flutter with RVR: currently is back to NSR 2. acute hypoxemic respiratory failure: extubated now but still requires high flow O2 3. + troponin: c.w NSTEMI due to demand ischemia due to above 4. DM and severely elevated glucose: controlled with insulin now 5. dyslipidemia 6. pneumonia 7. s/p shock : appear to be related to sepsis: currently off of levophed 8. hx memory impairment 9. anemia and GI bleed: stable now 10. hypo K. hypo Mg; CORRECTED NOW will CONT eliquis 2.5 bid as long as ok with GI. off of plavix due to above cardizem drip prn cont METOPROLOL DM Control with insulin echo shows normal EF replace lytes including K and Mg prn. THANK YOU. Problems: Subjective 24 Hr Interval Summary Free Text/Dictation CARDIOLOGY FOLLOW UP NOTE d/w staff and rhythm was reviewed. pt has remained in NSR pt is EXTUBATED 03/08 no more bleeding is reported. she denies any chest pain to me pt still requires high flow O2 OBJECTIVE: General: no acute distress HEENT: NC/AT. pupils are round. NECK: NO JVD. no stridor. CV: RRR. systolic murmur; no gallop or rubs. PULM: + diffuse rhonchi. GI: SOFT, NT, ND, no rebound or guarding Extremity: trace B/L LE edema. no clubbing. neuro: sleepy Psych: calm now. rectal: deferred : deferred Exam/Review of Systems Vital Signs Vitals Vital Signs Date Time Temp Pulse Resp B/P Pulse Ox O2 Delivery O2 Flow Rate FiO2 03/24/17 07:05 94 50 03/24/17 07:01 98.6 83 18 121/73 03/24/17 06:01 High Flow 03/21/17 21:00 15.0 Intake and Output 03/23/17 03/23/17 03/24/17 15:00 23:00 07:00 Intake Total 250 ml Output Total 2 ml Balance 248 ml Results Result Diagram: 03/24/17 0631 03/23/17 0722 Results 24 hrs Laboratory Tests Test 03/23/17 08:25 03/23/17 12:38 03/23/17 18:00 03/23/17 21:37 Bedside Glucose 104 72 148 179 Test 03/24/17 06:31 White Blood Count 6.0 Red Blood Count 3.71 L Hemoglobin 11.3 L Hematocrit 36.6 L Mean Corpuscular Volume 98.7 Mean Corpuscular Hemoglobin 30.5 Mean Corpuscular Hemoglobin Concent 30.9 L Red Cell Distribution Width 15.6 H Platelet Count 251 Mean Platelet Volume 11.7 H Neutrophils % 53.4 Lymphocytes % 28.7 Monocytes % 10.0 Eosinophils % 6.7 Basophils % 0.7 Nucleated Red Blood Cells % 0.0 Neutrophils # 3.2 Lymphocytes # 1.7 Monocytes # 0.6 Eosinophils # 0.4 Basophils # 0.0 Nucleated Red Blood Cells # 0.0 Medications Medications Current Medications Miscellaneous Information 1 ea NOTE XX ; Start 03/02/17 at 00:30 Glucose (Glutose) 15 gm Q15M PRN PO DECREASED GLUCOSE; Start 03/02/17 at 00:30 Glucose (Glutose) 22.5 gm Q15M PRN PO DECREASED GLUCOSE; Start 03/02/17 at 00: 30 Dextrose (D50w Syringe) 25 ml Q15M PRN IV DECREASED GLUCOSE; Start 03/02/17 at 00:30 Dextrose (D50w Syringe) 50 ml Q15M PRN IV DECREASED GLUCOSE; Start 03/02/17 at 00:30 Glucagon (Glucagen) 1 mg Q15M PRN IM DECREASED GLUCOSE; Start 03/02/17 at 00:30 Glucose (Glutose) 15 gm Q15M PRN BUCCAL DECREASED GLUCOSE; Start 03/02/17 at 00 :30 Aspirin (Halfprin) 81 mg DAILY PO Last administered on 03/18/17 08:09; Admin Dose 81 MG; Start 03/07/17 at 09:00; Status Future Hold Atorvastatin Calcium (Lipitor) 40 mg QHS PO Last administered on 03/23/17 21:38 ; Admin Dose 40 MG; Start 03/06/17 at 21:00 Diclofenac Sodium (Voltaren) 75 mg DAILY PO Last administered on 03/23/17 09:30 ; Admin Dose 75 MG; Start 03/07/17 at 09:00 Donepezil HCl (Aricept) 5 mg QHS PO Last administered on 03/23/17 21:38; Admin Dose 5 MG; Start 03/06/17 at 21:00 Morphine Sulfate (morphine) 3 mg Q4H PRN IV PAIN LEVEL 6-10 Last administered on 03/18/17 01:28; Admin Dose 3 MG; Start 03/12/17 at 00:00 Acetaminophen (Tylenol Tab) 325 mg Q4H PRN PO PAIN AND OR ELEVATED TEMP; Start 03/15/17 at 14:30 Pantoprazole (Protonix Tab) 40 mg BID@06,18 PO Last administered on 03/24/17 06 :15; Admin Dose 40 MG; Start 03/15/17 at 18:00 Metoprolol Tartrate (Lopressor) 25 mg QID PO Last administered on 03/23/17 13: 00; Admin Dose 25 MG; Start 03/16/17 at 09:00 Potassium Chloride (Potassium Chloride Pwd/Soln) 40 meq DAILY PO Last administered on 03/23/17 09:30; Admin Dose 40 MEQ; Start 03/17/17 at 09:00 Insulin Glargine (Lantus) 15 unit DAILY@20 SC Last administered on 03/23/17 21: 43; Admin Dose 15 UNIT; Start 03/17/17 at 20:00 Diagnostic Test (Pha) (Accu-Chek) 1 ea 02 XX Last administered on 03/18/17 01: 34; Admin Dose 1 EA; Start 03/18/17 at 02:00 Apixaban (Eliquis) 2.5 mg BID PO Last administered on 03/23/17 21:38; Admin Dose 2.5 MG; Start 03/18/17 at 21:00 Hydralazine HCl (Apresoline) 10 mg Q6H PRN IV ELEVATED BLOOD PRESSURE Last administered on 03/20/17 05:06; Admin Dose 10 MG; Start 03/20/17 at 05:00 TYREE MCKOY MD Mar 24, 2017 08:05
[2017-03-24 08:19] LABS: ALBUMIN 4.1 g/dl (3.3-4.9); ALBUMIN/GLOBULIN RATIO 1.07; BILIRUBIN,INDIRECT 0.4 mg/dl (0-1.1); BILIRUBIN,TOTAL 0.4 mg/dl (0.2-1.3); CALCIUM 9.7 mg/dl (8.4-10.2); CREATININE 1.25 mg/dl (0.44-1.00); MAGNESIUM 2.1 mg/dl (1.7-2.5); POTASSIUM 4.6 mmol/L (3.5-5.1); TOTAL PROTEIN 7.9 g/dl (6.1-8.1)
[2017-03-24] MEDS: INSULIN ASPART [NOVOLOG] 3 ML PEN SC SCH ×6 (08:41→17:46)
[2017-03-24] MEDS: POTASSIUM CHLORIDE 20 MEQ POWDER FOR ORAL SOLN PO SCH (08:43)
[2017-03-24] MEDS: DICLOFENAC (EC) 75 MG TAB PO SCH (08:54)
[2017-03-24] MEDS: APIXABAN 5 MG TABLET PO SCH (08:55)
[2017-03-24] MEDS: METOPROLOL 25 MG TAB PO SCH ×3 (08:55→17:47)
--- NOTE | 2017-03-24 10:34 | CONS ---
Date/Time of Note Date/Time of Note DATE: 03/24/17 TIME: 10:31 Assessment/Plan Assessment/Plan Chief Complaint/Hosp Course Assessment/Plan Chief Complaint/Hosp Course ID PROGRESS NOTE TOTAL ABX DAY => OFF ABX DAY #11 * s/p 11 DAYS ABX: ZOSYN, Vanco IV, Diflucan 24H INTERVAL SUMMARY/HOSPITAL COURSE * Awake. Alert. No Acute Distress. * Resolving pulmonary congestion // generalized weakness, debility, fatigues easily =>EXTUBATED 03/08/17 PHYSICAL EXAMINATION: GENERAL: No fevers, VSS, NAD HEENT: Unremarkable NECK: Trach midline, supple CHEST: Rise symmetrical without dyspnea on supplemental O2 via DM CV: Radial pulse RRR, mild tachy on tele ABDOMEN: Soft, nondistended EXTREMITIES: Warm, dry, intact ID ASSESSMENT: 86 yo F s/PMHx dementia w/memory impairment admit with: 1. s/p Sepsis with shock and persistent leukocytosis==>on admission due to #2 = RESOLVED * No fevers, WBC normalizing, off pressors, tachycardia resolved 2. Multifocal bronchiolitis (+/-) ASPIRATION PNA on admission = STABLE S/P 11 DAYS IV ABX * ASP PNA risk factors: Age, ?dementia, Esophagitis suspect GERD possible silent Aspiration syndrome * CT CXT 03/17/17 IMPRESSION:No evidence of acute pulmonary embolism.Near complete resolution of multifocal bronchiolitis. Residual bronchial wall thickening is seen within the lung bases and has decreased. Small bilateral pleural effusions. 2. Mild cardiomegaly and aortic atherosclerosis. 3. Acute hypoxic/hypercapnic respiratory failure => s/p oral intubation/ mechanical Vent =>EXTUBATED 03/08/17 * Stable on supplemental O2 via Vapotherm 4. s/p Upper GIB -> s/p EGD 03/04/17 revealed (+) Erosive esophagitis w/ Erosive fundal gastritis, related to NG tube trauma. Nodular gastritis * s/p empiric Diflucan for concern esophagitis * 03/04 PATHO REPORT: Gastric biopsy:-- Reactive gastropathy, mild, with focal early acute mucosal erosion.-- No Helicobacter organisms are identified in a Giemsa stain (positive control concurrently reviewed).-- There is no evidence of malignancy 5. Non-ST elevation ND in setting sepsis + GIB 6. Parosysmal Afib w/RVR => Amiodarone 7. HTN Heart Disease w/diastolic HF * 2D ECHO: Mild concentric LVH w/ EF ~55 %l Stage I diastolic dysfunction. 8. Diabetes (-) MRSA Nares screen INVASIVES: L-SubC TLC, FC ABX ALLERGY: KNDA CURRENT ABX: => OFF ABX DAY #11 s/p 11 DAYS ABX: ZOSYN, Vanco IV, Diflucan ID PLAN: * Continue to monitor the patient OFF ABX, with repeat MICRO PRN clinical indicators of recurrent sepsis * CXR -> residual pulm edema. * Aspiration precautions, follow speech Tx recommendations * Increase mobility and strength w/PTx * PER NOTES REVIEWED: Code status: full code. * As per notes from bioethics meeting, sw and palliative still trying to reach pt's family in [id number] palliative care recommendations on this * GI Prophylaxis. DVT Prophylaxis. Problems: Consultation Date/Type/Reason Admit Date/Time Mar 01, 2017 at 20:20 Initial Consult Date 03/08/17 Type of Consultation: id Referring Provider: MICHELLE MORENO Exam/Review of Systems Vital Signs Vitals Vital Signs Date Time Temp Pulse Resp B/P Pulse Ox O2 Delivery O2 Flow Rate FiO2 03/24/17 09:59 93 50 03/24/17 08:30 77 03/24/17 07:01 98.6 18 121/73 03/24/17 06:01 High Flow 03/21/17 21:00 15.0 Intake and Output 03/23/17 03/23/17 03/24/17 15:00 23:00 07:00 Intake Total 250 ml Output Total 2 ml Balance 248 ml Results Result Diagram: 03/24/17 0631 03/24/17 0631 Results 24 hrs Laboratory Tests Test 03/23/17 12:38 03/23/17 18:00 03/23/17 21:37 03/24/17 06:31 Bedside Glucose 72 148 179 White Blood Count 6.0 Red Blood Count 3.71 L Hemoglobin 11.3 L Hematocrit 36.6 L Mean Corpuscular Volume 98.7 Mean Corpuscular Hemoglobin 30.5 Mean Corpuscular Hemoglobin Concent 30.9 L Red Cell Distribution Width 15.6 H Platelet Count 251 Mean Platelet Volume 11.7 H Neutrophils % 53.4 Lymphocytes % 28.7 Monocytes % 10.0 Eosinophils % 6.7 Basophils % 0.7 Nucleated Red Blood Cells % 0.0 Neutrophils # 3.2 Lymphocytes # 1.7 Monocytes # 0.6 Eosinophils # 0.4 Basophils # 0.0 Nucleated Red Blood Cells # 0.0 Sodium Level 145 H Potassium Level 4.6 Chloride Level 100 Carbon Dioxide Level 30 Anion Gap 20 H Blood Urea Nitrogen 35 H Creatinine 1.25 H Glucose Level 191 Calcium Level 9.7 Magnesium Level 2.1 Total Bilirubin 0.4 Direct Bilirubin 0.00 Indirect Bilirubin 0.4 Aspartate Amino Transf (AST/SGOT) 26 Alanine Aminotransferase (ALT/SGPT) 26 Alkaline Phosphatase 101 Total Protein 7.9 Albumin 4.1 Globulin 3.80 H Albumin/Globulin Ratio 1.07 Test 03/24/17 08:22 Bedside Glucose 169 Medications Medications Current Medications Miscellaneous Information 1 ea NOTE XX ; Start 03/02/17 at 00:30 Glucose (Glutose) 15 gm Q15M PRN PO DECREASED GLUCOSE; Start 03/02/17 at 00:30 Glucose (Glutose) 22.5 gm Q15M PRN PO DECREASED GLUCOSE; Start 03/02/17 at 00: 30 Dextrose (D50w Syringe) 25 ml Q15M PRN IV DECREASED GLUCOSE; Start 03/02/17 at 00:30 Dextrose (D50w Syringe) 50 ml Q15M PRN IV DECREASED GLUCOSE; Start 03/02/17 at 00:30 Glucagon (Glucagen) 1 mg Q15M PRN IM DECREASED GLUCOSE; Start 03/02/17 at 00:30 Glucose (Glutose) 15 gm Q15M PRN BUCCAL DECREASED GLUCOSE; Start 03/02/17 at 00 :30 Aspirin (Halfprin) 81 mg DAILY PO Last administered on 03/18/17 08:09; Admin Dose 81 MG; Start 03/07/17 at 09:00; Status Future Hold Atorvastatin Calcium (Lipitor) 40 mg QHS PO Last administered on 03/23/17 21:38 ; Admin Dose 40 MG; Start 03/06/17 at 21:00 Diclofenac Sodium (Voltaren) 75 mg DAILY PO Last administered on 03/24/17 08:54 ; Admin Dose 75 MG; Start 03/07/17 at 09:00 Donepezil HCl (Aricept) 5 mg QHS PO Last administered on 03/23/17 21:38; Admin Dose 5 MG; Start 03/06/17 at 21:00 Morphine Sulfate (morphine) 3 mg Q4H PRN IV PAIN LEVEL 6-10 Last administered on 03/18/17 01:28; Admin Dose 3 MG; Start 03/12/17 at 00:00 Acetaminophen (Tylenol Tab) 325 mg Q4H PRN PO PAIN AND OR ELEVATED TEMP; Start 03/15/17 at 14:30 Pantoprazole (Protonix Tab) 40 mg BID@06,18 PO Last administered on 03/24/17 06 :15; Admin Dose 40 MG; Start 03/15/17 at 18:00 Metoprolol Tartrate (Lopressor) 25 mg QID PO Last administered on 03/24/17 08: 55; Admin Dose 25 MG; Start 03/16/17 at 09:00 Potassium Chloride (Potassium Chloride Pwd/Soln) 40 meq DAILY PO Last administered on 03/24/17 08:43; Admin Dose 40 MEQ; Start 03/17/17 at 09:00 Insulin Glargine (Lantus) 15 unit DAILY@20 SC Last administered on 03/23/17 21: 43; Admin Dose 15 UNIT; Start 03/17/17 at 20:00 Diagnostic Test (Pha) (Accu-Chek) 1 ea 02 XX Last administered on 03/18/17 01: 34; Admin Dose 1 EA; Start 03/18/17 at 02:00 Apixaban (Eliquis) 2.5 mg BID PO Last administered on 03/24/17 08:55; Admin Dose 2.5 MG; Start 03/18/17 at 21:00 Hydralazine HCl (Apresoline) 10 mg Q6H PRN IV ELEVATED BLOOD PRESSURE Last administered on 03/20/17 05:06; Admin Dose 10 MG; Start 03/20/17 at 05:00 JODI COOK NP Mar 24, 2017 10:34
--- NOTE | 2017-03-24 11:51 | DS ---
Date/Time of Note Date/Time of Note DATE: 03/24/17 TIME: 11:49 Discharge Summary Admission/Discharge Info Admit Date/Time Mar 01, 2017 at 20:20 Discharge Date/Time Discharge Diagnosis 1. acute hypoxic respiratory failure: 2/2 aspiration pna, now extubated- presently on high flow oxygen 2. Severe sepsis: from aspiration pna 3. Tachycardia: afib with RVR vs sinus tach (fluctuates)-presently stable on Eliquis for prophylaxis 4. suspected fungal esophagitis: sp antifungal 5. diabetes mellitus: Continue insulin sliding scale. cont lantus 15 units, cont SSI 6. History of essential hypertension: ARB on hold 7. Questionable GI bleed: sp EGD 7.15, +gastritis 9. hyperthyroid : 7.13 labs notable for hyperthyroid (TSH low, t4 high)--> consider post discharge fu with PCP 10. hypernatremia - resolved 11. gastritis/esophagitis Patient Condition: Stable Hospital Course 86-year-old female presented to the emergency room for evaluation of shortness of breath and a cough productive of yellow phlegm. According to the patient and the patient's family member was at bedside this patient has had the symptoms for 2 days duration prior to admission. She denied any fevers associated with them but does state that she is feeling short of breath. The patient does have a history of hypertension, hyperlipidemia, and diabetes. She denies any aggravating or relieving factors for her symptoms and came to the emergency room for evaluation. After returning from the CAT scan, patient decompensated and was obtunded and it was necessary to intubate her. Patient was then subsequently admitted to the ICU. She was seen by multiple specialists during this hospital stay, including cardiology, pulmonary, infectious disease, palliative care teams. She initially was intubated because of respiratory failure and had severe sepsis, both secondary to aspiration pneumonia. She was placed on antibiotics. There was a questionable GI bleed, patient had EGD on February 24, [id number], there was findings of gastritis. She also suffered from atrial fibrillation with RVR, helped to be treated by cardiology team. Eventually was started on low-dose Eliquis as well when she had no signs of any GI bleeding. Over the course of her hospital stay, her respiratory status improved, she was able to be extubated. She still required high flow oxygen. This was helped managed by pulmonary team. Bioethics team was also consulted as there was a problem trying to get a hold of family members , they were thought to be in [facility]. However there was no correct phone number given. Palliative care team helped with trying to contact family members for this, but again we were unsuccessful. Patient will need to follow- up with her regular doctor in the clinic in the next 1 week, and will be followed by [facility] consultant teams while the patient is at the [facility]. We will attempt to discharge the patient here today after her social issues are sorted out with the [place] team. Home Meds Reported Medications Insulin Degludec (Tresiba Flextouch U-200) 200 Unit/1 Ml Insuln.pen, 34 UNIT SQ QAM 03/01/17 Sitagliptin* (Januvia*) 100 Mg Tablet, 100 MG PO QAM, #30 TAB 03/01/17 Metformin Hcl* (Metformin Hcl* ER) 750 Mg Tab.sr.24h, 750 MG PO QAM, #30 TAB 03/01/17 Atorvastatin* (Atorvastatin*) 40 Mg Tablet, 40 MG PO QHS, #30 TAB 03/01/17 Donepezil* (Aricept*) 5 Mg Tablet, 5 MG PO QHS, TAB 03/01/17 Diclofenac Sodium* (Diclofenac Sodium*) 75 Mg Tablet.dr, 75 MG PO DAILY, #60 TAB 03/01/17 Aspirin* (Aspirin* EC) 81 Mg Tablet.dr, 81 MG PO DAILY, TAB 03/01/17 Valsartan* (Diovan*) 80 Mg Tablet, 80 MG PO DAILY, TAB 03/01/17 Primary Care Provider Doris Diehl MD Time spent on discharge: > 30 minutes Pending Labs Laboratory Tests Test 03/23/17 12:38 03/23/17 18:00 03/23/17 21:37 03/24/17 06:31 Bedside Glucose 72mg/dL (70-220) 148mg/dL (70-220) 179mg/dL (70-220) White Blood Count 6.010^3/ul (4.8-10.8) Red Blood Count 3.7110^6/ul (4.20-5.40) Hemoglobin 11.3g/dl (12.0-16.0) Hematocrit 36.6% (37.0-47.0) Mean Corpuscular Volume 98.7fl (82.0-101.0) Mean Corpuscular Hemoglobin 30.5pg (29.0-33.0) Mean Corpuscular Hemoglobin Concent 30.9g/dl (32.0-37.0) Red Cell Distribution Width 15.6% (11.5-14.5) Platelet Count 75044^3/UL (140-415) Mean Platelet Volume 11.7fl (7.4-10.4) Neutrophils % 53.4% (39.0-77.0) Lymphocytes % 28.7% (15.0-51.0) Monocytes % 10.0% (0.0-11.0) Eosinophils % 6.7% (0.0-7.0) Basophils % 0.7% (0.0-2.0) Nucleated Red Blood Cells % 0.0/100WBC (0.0-0.0) Neutrophils # 3.210^3/ul (1.6-7.5) Lymphocytes # 1.710^3/ul (0.8-2.9) Monocytes # 0.610^3/ul (0.3-0.9) Eosinophils # 0.410^3/ul (0.0-0.5) Basophils # 0.010^3/ul (0.0-0.1) Nucleated Red Blood Cells # 0.010^3/ul (0.0-0.0) Sodium Level 145mmol/L (135-144) Potassium Level 4.6mmol/L (3.5-5.1) Chloride Level 100mmol/L (97-110) Carbon Dioxide Level 30mmol/L (21-31) Anion Gap 20 (8-16) Blood Urea Nitrogen 35mg/dl (7-20) Creatinine 1.25mg/dl (0.44-1.00) Glucose Level 191mg/dl (70-220) Calcium Level 9.7mg/dl (8.4-10.2) Magnesium Level 2.1mg/dl (1.7-2.5) Total Bilirubin 0.4mg/dl (0.2-1.3) Direct Bilirubin 0.00mg/dl (0.00-0.20) Indirect Bilirubin 0.4mg/dl (0-1.1) Aspartate Amino Transf (AST/SGOT) 26IU/L (15-46) Alanine Aminotransferase (ALT/SGPT) 26IU/L (13-69) Alkaline Phosphatase 101IU/L (42-121) Total Protein 7.9g/dl (6.1-8.1) Albumin 4.1g/dl (3.3-4.9) Globulin 3.80g/dl (1.3-3.2) Albumin/Globulin Ratio 1.07 Test 03/24/17 08:22 Bedside Glucose 169mg/dL (70-220) FERNANDO DIMAS Mar 24, 2017 11:51
--- NOTE | 2017-03-24 14:38 | CONS ---
Date/Time of Note Date/Time of Note DATE: 03/24/17 TIME: 14:37 Assessment/Plan Assessment/Plan Additional Assessment/Plan There is been no change in patient's overall clinical condition she remains pleasantly confused. We were never successful in trying to contact family members in [facility]. Patient's CODE STATUS has not been changed however at the time of discharge strongly recommend bioethics committee at the [facility] read[facility]. Consultation Date/Type/Reason Admit Date/Time Mar 01, 2017 at 20:20 Initial Consult Date March 17, 2017 Type of Consultation: Palliative care Referring Provider: MICHELLE MORENO Exam/Review of Systems Vital Signs Vitals Vital Signs Date Time Temp Pulse Resp B/P Pulse Ox O2 Delivery O2 Flow Rate FiO2 03/24/17 13:05 94 50 03/24/17 12:30 82 03/24/17 11:32 98.6 18 110/60 03/24/17 06:01 High Flow 03/21/17 21:00 15.0 Intake and Output 03/23/17 03/23/17 03/24/17 15:00 23:00 07:00 Intake Total 250 ml Output Total 2 ml Balance 248 ml Exam Constitutional: other (Confused) Respiratory: clear to auscultation, normal air movement Cardiovascular: nl pulses, regular rate and rhythm Gastrointestinal: nl liver, spleen, non-tender, soft Results Result Diagram: 03/24/17 0631 03/24/17 0631 Results 24 hrs Laboratory Tests Test 03/23/17 18:00 03/23/17 21:37 03/24/17 06:31 03/24/17 08:22 Bedside Glucose 148 179 169 White Blood Count 6.0 Red Blood Count 3.71 L Hemoglobin 11.3 L Hematocrit 36.6 L Mean Corpuscular Volume 98.7 Mean Corpuscular Hemoglobin 30.5 Mean Corpuscular Hemoglobin Concent 30.9 L Red Cell Distribution Width 15.6 H Platelet Count 251 Mean Platelet Volume 11.7 H Neutrophils % 53.4 Lymphocytes % 28.7 Monocytes % 10.0 Eosinophils % 6.7 Basophils % 0.7 Nucleated Red Blood Cells % 0.0 Neutrophils # 3.2 Lymphocytes # 1.7 Monocytes # 0.6 Eosinophils # 0.4 Basophils # 0.0 Nucleated Red Blood Cells # 0.0 Sodium Level 145 H Potassium Level 4.6 Chloride Level 100 Carbon Dioxide Level 30 Anion Gap 20 H Blood Urea Nitrogen 35 H Creatinine 1.25 H Glucose Level 191 Calcium Level 9.7 Magnesium Level 2.1 Total Bilirubin 0.4 Direct Bilirubin 0.00 Indirect Bilirubin 0.4 Aspartate Amino Transf (AST/SGOT) 26 Alanine Aminotransferase (ALT/SGPT) 26 Alkaline Phosphatase 101 Total Protein 7.9 Albumin 4.1 Globulin 3.80 H Albumin/Globulin Ratio 1.07 Test 03/24/17 12:02 Bedside Glucose 154 Medications Medications Current Medications Miscellaneous Information 1 ea NOTE XX ; Start 03/02/17 at 00:30 Glucose (Glutose) 15 gm Q15M PRN PO DECREASED GLUCOSE; Start 03/02/17 at 00:30 Glucose (Glutose) 22.5 gm Q15M PRN PO DECREASED GLUCOSE; Start 03/02/17 at 00: 30 Dextrose (D50w Syringe) 25 ml Q15M PRN IV DECREASED GLUCOSE; Start 03/02/17 at 00:30 Dextrose (D50w Syringe) 50 ml Q15M PRN IV DECREASED GLUCOSE; Start 03/02/17 at 00:30 Glucagon (Glucagen) 1 mg Q15M PRN IM DECREASED GLUCOSE; Start 03/02/17 at 00:30 Glucose (Glutose) 15 gm Q15M PRN BUCCAL DECREASED GLUCOSE; Start 03/02/17 at 00 :30 Aspirin (Halfprin) 81 mg DAILY PO Last administered on 03/18/17 08:09; Admin Dose 81 MG; Start 03/07/17 at 09:00; Status Future Hold Atorvastatin Calcium (Lipitor) 40 mg QHS PO Last administered on 03/23/17 21:38 ; Admin Dose 40 MG; Start 03/06/17 at 21:00 Diclofenac Sodium (Voltaren) 75 mg DAILY PO Last administered on 03/24/17 08:54 ; Admin Dose 75 MG; Start 03/07/17 at 09:00 Donepezil HCl (Aricept) 5 mg QHS PO Last administered on 03/23/17 21:38; Admin Dose 5 MG; Start 03/06/17 at 21:00 Morphine Sulfate (morphine) 3 mg Q4H PRN IV PAIN LEVEL 6-10 Last administered on 03/18/17 01:28; Admin Dose 3 MG; Start 03/12/17 at 00:00 Acetaminophen (Tylenol Tab) 325 mg Q4H PRN PO PAIN AND OR ELEVATED TEMP; Start 03/15/17 at 14:30 Pantoprazole (Protonix Tab) 40 mg BID@06,18 PO Last administered on 03/24/17 06 :15; Admin Dose 40 MG; Start 03/15/17 at 18:00 Metoprolol Tartrate (Lopressor) 25 mg QID PO Last administered on 03/24/17 12: 44; Admin Dose 25 MG; Start 03/16/17 at 09:00 Potassium Chloride (Potassium Chloride Pwd/Soln) 40 meq DAILY PO Last administered on 03/24/17 08:43; Admin Dose 40 MEQ; Start 03/17/17 at 09:00 Insulin Glargine (Lantus) 15 unit DAILY@20 SC Last administered on 03/23/17 21: 43; Admin Dose 15 UNIT; Start 03/17/17 at 20:00 Diagnostic Test (Pha) (Accu-Chek) 1 ea 02 XX Last administered on 03/18/17 01: 34; Admin Dose 1 EA; Start 03/18/17 at 02:00 Apixaban (Eliquis) 2.5 mg BID PO Last administered on 03/24/17 08:55; Admin Dose 2.5 MG; Start 03/18/17 at 21:00 Hydralazine HCl (Apresoline) 10 mg Q6H PRN IV ELEVATED BLOOD PRESSURE Last administered on 03/20/17 05:06; Admin Dose 10 MG; Start 03/20/17 at 05:00 CARY WALTER Mar 24, 2017 14:38
[2017-03-24 17:52] LABS: AADO2 Arterial 230.1 mmHg (7.0-24.0); Allen Test ACCEPTAB; Arterial Base Excess 4.8 mmol/L (-3.0-3); Arterial COHb 0.3 % (0.0-3.0); Arterial Fraction of Oxyhgb 93.1 % (93.0-99.0); Arterial HCO3 30.5 mmol/L (22.0-26.0); Arterial MetHb 0.3 % (0.0-1.5); Arterial Total Hemglobin 12.4 g/dl (12.0-18.0); MODE HFNC
== END 2017-03-24 19:55 | DRG 870 ==
LOC: E/R 18:52 → ICU 20:20 → TEL 03-19 16:25
PROVIDERS: ADMIT Family Medicine; ATTEND Family Medicine
PROC: 0BH17EZ Insertion of Endotracheal Airway into Trachea, Via Natural or Artificial Opening (ICD-10-PCS; principal; 2017-03-02)
PROC: 5A1955Z Respiratory Ventilation, Greater than 96 Consecutive Hours (ICD-10-PCS; 2017-03-02)
PROC: 0DB68ZX Excision of Stomach, Via Natural or Artificial Opening Endoscopic, Diagnostic (ICD-10-PCS; 2017-03-04)
DX: A41.9 Sepsis, unspecified organism (principal); J96.21 Acute and chronic respiratory failure with hypoxia; I21.4 Non-ST elevation (NSTEMI) myocardial infarction; J69.0 Pneumonitis due to inhalation of food and vomit; R65.21 Severe sepsis with septic shock; B37.81 Candidal esophagitis; E11.65 Type 2 diabetes mellitus with hyperglycemia; J96.22 Acute and chronic respiratory failure with hypercapnia; I50.30 Unspecified diastolic (congestive) heart failure; I48.92 Unspecified atrial flutter; E87.0 Hyperosmolality and hypernatremia; I47.1 Supraventricular tachycardia; I11.0 Hypertensive heart disease with heart failure; E78.5 Hyperlipidemia, unspecified; I48.0 Paroxysmal atrial fibrillation; K20.9 Esophagitis, unspecified; K29.00 Acute gastritis without bleeding; F03.90 Unspecified dementia, unspecified severity, without behavioral disturbance, psychotic disturbance, mood disturbance, and anxiety; D64.9 Anemia, unspecified; E05.90 Thyrotoxicosis, unspecified without thyrotoxic crisis or storm; E83.42 Hypomagnesemia; Z79.4 Long term (current) use of insulin; Z79.02 Long term (current) use of antithrombotics/antiplatelets; Z79.82 Long term (current) use of aspirin; Z87.891 Personal history of nicotine dependence
CPT/HCPCS: 31500; 36415; 36600; 71010; 71275; 80048; 80053; 80061; 80162; 80202; 81001; 82550; 82553; 82803; 82962; 83036; 83605; 83735; 83880; 84100; 84145; 84439; 84443; 84484; 85014; 85018; 85025; 85610; 85730; 86703; 87040; 87081; 87086; 88305; 88312; 92526; 92610; 93005; 93306; 94002; 94003; 94640; 94644; 94660; 94664; 94770; 96365; 96375; 97110; 97116; 97162; 97530; J1120; C9113; J0282; J0360; J0456; J0692; J1630; J1815; J1940; J2060; J2250; J2270; J2543; J2930; J3010; J3370; J3475; J3480; J7030; J7040; J7050; J7060; J7070; J7999; Q9967

== ENCOUNTER 2017-04-16 21:24 | Inpatient (IN) | payer MEDICARE, OTHER ==
[~2017-04-16] VITALS: Ht 162.6 cm; Wt 74.7 kg
[~2017-04-16 21:24] MED LIST changes: +ASPI-664 PO; +ATOR40TA68 PO; +DICL75TA2 PO; +DONE5TAB46 PO; -GLIP-95 PO; +INSU200I4 SQ; +METF750T2 PO; +SITA100T8 PO; -VALS40TA2 PO; +VALS80TA2 PO
[2017-04-16] MEDS ORDERED: SOD CHLORIDE 0.9% 500 ML IV STA (21:58)
--- NOTE | 2017-04-16 22:56 | RADRPT ---
PROCEDURE: Portable chest x-ray. CLINICAL INDICATION: 86 years of age, female. Altered mental status. TECHNIQUE: Portable AP view of the chest. COMPARISON: None available. FINDINGS: Cardiomediastinal contours are normal. Possible calcified granuloma right midlung zone. Mild bibasilar lung opacity likely represents atele ctasis. Lungs are otherwise clear. Negative for pleural effusion or pneumothorax. No acute bony abnormality. IMPRESSION: Bibasilar lung opacity likely represents atelectasis. RPTAT: HCTS Physician Italia Date Time Electronically viewed and signed by Physician Italia on 04/16/2017 22:56 CS/
[2017-04-16] MEDS ORDERED: CEFTRIAXONE 1 GM/50 ML (PMX) 50 ML IVPB ONE (23:00)
[2017-04-16 23:34] LABS: BASOPHILS % 0.2 % (0.0-2.0); EOSINOPHILS # 0.3 10^3/ul (0.0-0.5); EOSINOPHILS % 3.1 % (0.0-7.0); HEMOGLOBIN 8.5 g/dl (12.0-16.0); LYMPHOCYTES # 2.1 10^3/ul (0.8-2.9); LYMPHOCYTES % 23.3 % (15.0-51.0); MEAN CORPUSCULAR HEMOGLOBIN 31.1 pg (29.0-33.0); MEAN CORPUSCULAR HGB CONC 31.5 g/dl (32.0-37.0); MEAN CORPUSCULAR VOLUME 98.9 fl (82.0-101.0); MEAN PLATELET VOLUME 10.1 fl (7.4-10.4); MONOCYTE # 0.7 10^3/ul (0.3-0.9); MONOCYTES % 8.1 % (0.0-11.0); NEUTROPHILS % 64.5 % (39.0-77.0); PLATELET COUNT 275 10^3/UL (140-415); RED BLOOD COUNT 2.73 10^6/ul (4.20-5.40); RED CELL DISTRIBUTION WIDTH 16.2 % (11.5-14.5); WHITE BLOOD COUNT 9.1 10^3/ul (4.8-10.8)
[2017-04-16 23:43] LABS: ADD UMIC NO; UR ASCORBIC ACID 20 mg/dL (NEGATIVE); UR BILIRUBIN (Dip) NEGATIVE (NEGATIVE); UR BLOOD (Dip) NEGATIVE (NEGATIVE); UR CLARITY CLEAR (CLEAR); UR COLOR YELLOW (YELLOW); UR GLUCOSE (Dip) NEGATIVE (NEGATIVE); UR KETONES (Dip) NEGATIVE (NEGATIVE); UR LEUKOCYTE ESTERASE (Dip) NEGATIVE Leu/ul (NEGATIVE); UR NITRITE (Dip) NEGATIVE (NEGATIVE); UR SPECIFIC GRAVITY (Dip) 1.014 (1.003-1.030); UR TOTAL PROTEIN (Dip) NEGATIVE (NEGATIVE); UR UROBILINOGEN (Dip) NEGATIVE (NEGATIVE)
[2017-04-16 23:56] LABS: ALANINE AMINOTRANSFERASE 31 IU/L (13-69); ALBUMIN 3.3 g/dl (3.3-4.9); ALBUMIN/GLOBULIN RATIO 0.91; ALKALINE PHOSPHATASE 96 IU/L (42-121); ANION GAP 17 (8-16); ASPARTATE AMINO TRANSFERASE 26 IU/L (15-46); BLOOD UREA NITROGEN 54 mg/dl (7-20); CALCIUM 8.6 mg/dl (8.4-10.2); CARBON DIOXIDE 31 mmol/L (21-31); CHLORIDE 97 mmol/L (97-110); CREATININE 4.52 mg/dl (0.44-1.00); GLUCOSE 107 mg/dl (70-220); POTASSIUM 4.6 mmol/L (3.5-5.1); SODIUM 140 mmol/L (135-144); TOTAL PROTEIN 6.9 g/dl (6.1-8.1)
[2017-04-17 00:21] LABS: TROPONIN-I < 0.012 ng/ml (0.00-0.12)
[2017-04-17] MEDS ORDERED: ACETAMINOPHEN 325 MG TAB PO PRN (00:30)
[2017-04-17] MEDS ORDERED: ONDANSETRON 4 MG INJ IV PRN (00:30)
--- NOTE | 2017-04-17 00:33 | ERA ---
ER Documentation Chief Complaint Date/Time DATE: 04/17/17 TIME: 00:31 Chief Complaint increased confusion, hx dementia,from [facility], [place], [facility] HPI Patient is an 86-year-old female who presents more altered than usual. Please note the history and physical exam is limited secondary to the patient's mental status. The patient was brought in by ambulance. She was supposedly more altered than usual and had a UTI. She was sent by her primary doctor Dr. Hendrickson. It is difficult to obtain history otherwise. ROS All systems reviewed and are negative except as per history of present illness. Medications Home Meds Reported Medications Insulin Degludec (Tresiba Flextouch U-200) 200 Unit/1 Ml Insuln.pen, 34 UNIT SQ QAM 03/01/17 Sitagliptin* (Januvia*) 100 Mg Tablet, 100 MG PO QAM, #30 TAB 03/01/17 Metformin Hcl* (Metformin Hcl* ER) 750 Mg Tab.sr.24h, 750 MG PO QAM, #30 TAB 03/01/17 Atorvastatin* (Atorvastatin*) 40 Mg Tablet, 40 MG PO QHS, #30 TAB 03/01/17 Donepezil* (Aricept*) 5 Mg Tablet, 5 MG PO QHS, TAB 03/01/17 Diclofenac Sodium* (Diclofenac Sodium*) 75 Mg Tablet.dr, 75 MG PO DAILY, #60 TAB 03/01/17 Aspirin* (Aspirin* EC) 81 Mg Tablet.dr, 81 MG PO DAILY, TAB 03/01/17 Valsartan* (Diovan*) 80 Mg Tablet, 80 MG PO DAILY, TAB 03/01/17 Allergies Allergies: Coded Allergies: No Known Allergy (Unverified , 03/01/17) PMhx/Soc History of Surgery: No Anesthesia Reaction: No Hx Neurological Disorder: No Hx Respiratory Disorders: No Hx Cardiac Disorders: Yes (HIGH CHOLESTEROL) Hx Psychiatric Problems: No Hx Miscellaneous Medical Probl: Yes (See EMR for details. ) Hx Alcohol Use: No Hx Substance Use: No (UNKNWON) Hx Tobacco Use: Yes Smoking Status: Former smoker FmHx Unable to obtain Physical Exam Vitals Vital Signs Date Time Temp Pulse Resp B/P Pulse Ox O2 Delivery O2 Flow Rate FiO2 04/16/17 21:34 98.6 70 18 115/55 93 Physical Exam Const: No acute distress Head: Atraumatic Eyes: Normal Conjunctiva ENT: Normal External Ears, Nose and Mouth. Neck: Full range of motion..~ No meningismus. Resp: Clear to auscultation bilaterally Cardio: Regular rate and rhythm, no murmurs Abd: Soft, non tender, non distended. Normal bowel sounds Skin: No petechiae or rashes Back: No midline or flank tenderness Ext: No cyanosis, or edema Neur: Awake But confused Result Diagram: 04/16/178 04/16/178 Results 24 hrs Laboratory Tests Test 04/16/17 23:18 White Blood Count 9.110^3/ul Red Blood Count 2.7310^6/ul Hemoglobin 8.5g/dl Hematocrit 27.0% Mean Corpuscular Volume 98.9fl Mean Corpuscular Hemoglobin 31.1pg Mean Corpuscular Hemoglobin Concent 31.5g/dl Red Cell Distribution Width 16.2% Platelet Count 88596^3/UL Mean Platelet Volume 10.1fl Neutrophils % 64.5% Lymphocytes % 23.3% Monocytes % 8.1% Eosinophils % 3.1% Basophils % 0.2% Nucleated Red Blood Cells % 0.0/100WBC Neutrophils # (Manual) 5.910^3/ul Lymphocytes # 2.110^3/ul Monocytes # 0.710^3/ul Eosinophils # 0.310^3/ul Basophils # 0.010^3/ul Nucleated Red Blood Cells # 0.010^3/ul Urine Color YELLOW Urine Clarity CLEAR Urine pH 5.0 Urine Specific [place] 1.014 Urine Ketones NEGATIVEmg/dL Urine Nitrite NEGATIVEmg/dL Urine Bilirubin NEGATIVEmg/dL Urine Urobilinogen NEGATIVEmg/dL Urine Leukocyte Esterase NEGATIVELeu/ul Urine Hemoglobin NEGATIVEmg/dL Urine Glucose NEGATIVEmg/dL Urine Total Protein NEGATIVEmg/dl Sodium Level 140mmol/L Potassium Level 4.6mmol/L Chloride Level 97mmol/L Carbon Dioxide Level 31mmol/L Anion Gap 17 Blood Urea Nitrogen 54mg/dl Creatinine 4.52mg/dl Glucose Level 107mg/dl Calcium Level 8.6mg/dl Total Bilirubin 0.0mg/dl Direct Bilirubin 0.00mg/dl Indirect Bilirubin 0.0mg/dl Aspartate Amino Transf (AST/SGOT) 26IU/L Alanine Aminotransferase (ALT/SGPT) 31IU/L Alkaline Phosphatase 96IU/L Troponin I < 0.012ng/ml Total Protein 6.9g/dl Albumin 3.3g/dl Globulin 3.60g/dl Albumin/Globulin Ratio 0.91 Current Medications Medications (Trade) Dose Ordered Sig/All Route PRN Reason Start Time Stop Time Status Last Admin Dose Admin Sodium Chloride 500 ml @ 500 mls/hr Q1H STAT IV 04/16/17 21:58 04/16/17 22:57 DC 04/16/17 21:58 Ceftriaxone Sodium (Rocephin) 50 ml @ 100 mls/hr ONCE ONCE IVPB 04/16/17 23:00 04/16/17 23:29 DC 04/16/17 23:26 Ondansetron HCl (Zofran Inj) 4 mg BRIDGE ORDER PRN IV NAUSEA AND/OR VOMITING 04/17/17 00:30 04/18/17 00:29 Acetaminophen (Tylenol Tab) 650 mg ER BRIDGE PRN PO MILD PAIN/FEVER 04/17/17 00:30 04/18/17 00:29 Procedures/MDM Patient is a 86-year-old female who presents with altered mental status. She was given ceftriaxone empirically but her urinalysis came back negative for infection. However she was found to have acute renal failure with a creatinine of 4 which is elevated from 1 when she was here previously in the beginning of the month. I am concerned for her acute renal failure and she will require admission. I spoke with Dr. Hendrickson for admission to a medical surgical bed. The patient also was more altered than usual showing encephalopathy.She has anemia but does not require blood transfusion at this time. Departure Diagnosis: Primary Impression: Acute renal failure Qualified Code: N17.9 - Acute renal failure, unspecified acute renal failure type Additional Impressions: Altered level of consciousness Anemia Qualified Code: D64.9 - Anemia, unspecified type Condition: NORBERTO Remy MD Apr 17, 2017 00:33
[2017-04-17 01:30] VITALS: BP 135/74; PULSE 72; RESP 18
[2017-04-17 01:52] VITALS: Ht 162.6 cm; Wt 74.7 kg
[2017-04-17] MEDS: ACCU-CHEK XX SCH ×2 (02:00)
[2017-04-17] MEDS ORDERED: DEXTROSE 5%-0.45% NACL 1,000 ML IV SCH (02:00)
[2017-04-17] MEDS: CEFTRIAXONE 1 GM/50 ML (PMX) 50 ML IVPB SCH (02:00)
[2017-04-17] MEDS ORDERED: GLUCOSE GEL 15 GRAM TUBE BUCCAL PRN (03:00)
[2017-04-17] MEDS ORDERED: GLUCAGON 1 MG INJ IM PRN (03:00)
[2017-04-17] MEDS ORDERED: DEXTROSE 50% 50 ML SYRINGE IV PRN ×2 (03:00)
[2017-04-17] MEDS ORDERED: GLUCOSE GEL 15 GRAM TUBE PO PRN ×2 (03:00)
[2017-04-17] MEDS ORDERED: METO25TA7 PO (03:05)
[2017-04-17] MEDS ORDERED: APIX2.5T PO (03:05)
[2017-04-17] MEDS ORDERED: ACET-2158 PO (03:05)
[2017-04-17] MEDS ORDERED: LEVA0.6320 INHALATION (03:08)
[2017-04-17] MEDS ORDERED: PANT40TA3 PO (03:08)
[2017-04-17 03:44] VITALS: BP 135/60; RESP 17
[2017-04-17] MEDS: LEVALBUTEROL (NEB) 0.63 MG/3 ML AMP INH SCH ×4 (06:00→20:00)
[2017-04-17] MEDS: PANTOPRAZOLE (EC) 40 MG TAB PO SCH (06:22)
[2017-04-17 07:48] VITALS: BP 118/80; RESP 19
[2017-04-17] MEDS: APIXABAN 5 MG TABLET PO SCH ×2 (08:47→20:05)
[2017-04-17] MEDS: METOPROLOL (XL) 25 MG TAB PO SCH ×2 (08:47→20:05)
[2017-04-17] MEDS: INSULIN ASPART [NOVOLOG] 3 ML PEN SC SCH ×4 (08:48→20:07)
[2017-04-17] MEDS ORDERED: DICLOFENAC (EC) 75 MG TAB PO SCH (09:00)
[2017-04-17] MEDS: SOD CHLORIDE 0.9% 1,000 ML IV SCH ×2 (10:56→20:10)
--- NOTE | 2017-04-17 12:38 | RADRPT ---
PROCEDURE: Retroperitoneal ultrasound. CLINICAL INDICATION: Acute renal failure TECHNIQUE: Amador scale and color doppler ultrasound images of the retroperitoneum, kidneys, urinary bladder COMPARISON: No prior studies are available for comparison. FINDINGS: Kidneys: Right length (cm) : 10.2 Left length (cm) : 10.5 Right cortical thickness: Normal. Left cortical thickness: Normal. Echogenicity: Normal bilaterally. Hydronephrosis: None. Renal calculi: None. Focal lesions: None. Free fluid/ascites: None. Abdominal aorta: Not visualized by the qa software test engineer. Bladder: Not visualized by the qa software test engineer. Other findings: None. IMPRESSION: Normal examination. RPTAT: AADD .Deejay Ramirez MD, MD Date Time Electronically viewed and signed by .Deejay Ramirez MD, on 04/17/2017 12:38 .B/
[2017-04-17 13:08] LABS: CALCIUM 8.5 mg/dl (8.4-10.2); CREATININE 4.47 mg/dl (0.44-1.00); POTASSIUM 4.8 mmol/L (3.5-5.1)
--- NOTE | 2017-04-17 13:23 | CONS ---
Date/Time of Note Date/Time of Note DATE: 04/17/17 TIME: 13:22 Consultation Date/Type/Reason Admit Date/Time Apr 17, 2017 at 00:30 Date of Consultation: Apr 17, 2017 Type of Consultation: ID Reason for Consultation Antibiotic management Past Surgical History Past Surgical Hx: no surgical history Social History Smoking Status: Former smoker Exam/Review of Systems Vital Signs Vitals Vital Signs Date Time Temp Pulse Resp B/P Pulse Ox O2 Delivery O2 Flow Rate FiO2 04/17/17 07:48 97.4 70 19 118/80 98 04/17/17 07:41 2.0 04/17/17 07:40 Nasal Cannula Intake and Output 04/16/17 04/16/17 04/17/17 15:00 23:00 07:00 Intake Total 280 ml Balance 280 ml Results Result Diagram: 04/16/17 2318 04/17/17 1230 Results 24 hrs Laboratory Tests Test 04/16/17 23:18 04/17/17 01:31 04/17/17 08:41 04/17/17 12:30 White Blood Count 9.1 # Red Blood Count 2.73 L Hemoglobin 8.5 L Hematocrit 27.0 L Mean Corpuscular Volume 98.9 Mean Corpuscular Hemoglobin 31.1 Mean Corpuscular Hemoglobin Concent 31.5 L Red Cell Distribution Width 16.2 H Platelet Count 275 Mean Platelet Volume 10.1 Neutrophils % 64.5 Lymphocytes % 23.3 Monocytes % 8.1 Eosinophils % 3.1 Basophils % 0.2 Nucleated Red Blood Cells % 0.0 Neutrophils # (Manual) 5.9 Lymphocytes # 2.1 Monocytes # 0.7 Eosinophils # 0.3 Basophils # 0.0 Nucleated Red Blood Cells # 0.0 Urine Color YELLOW Urine Clarity CLEAR Urine pH 5.0 Urine Specific [place] 1.014 Urine Ketones NEGATIVE Urine Nitrite NEGATIVE Urine Bilirubin NEGATIVE Urine Urobilinogen NEGATIVE Urine Leukocyte Esterase NEGATIVE Urine Hemoglobin NEGATIVE Urine Glucose NEGATIVE Urine Total Protein NEGATIVE Sodium Level 140 141 Potassium Level 4.6 4.8 Chloride Level 97 98 Carbon Dioxide Level 31 33 H Anion Gap 17 H 15 Blood Urea Nitrogen 54 H 49 H Creatinine 4.52 H 4.47 H Glucose Level 107 156 Calcium Level 8.6 8.5 Total Bilirubin 0.0 L Direct Bilirubin 0.00 Indirect Bilirubin 0.0 Aspartate Amino Transf (AST/SGOT) 26 Alanine Aminotransferase (ALT/SGPT) 31 Alkaline Phosphatase 96 Troponin I < 0.012 Total Protein 6.9 Albumin 3.3 Globulin 3.60 H Albumin/Globulin Ratio 0.91 Bedside Glucose 139 222 H Medications Medications Current Medications Diagnostic Test (Pha) (Accu-Chek) 1 ea 02 XX ; Start 04/17/17 at 02:00 Insulin Glargine (Lantus) 15 unit HS SC ; Start 04/17/17 at 21:00 Diagnostic Test (Pha) 1 ea 1 ea 02 XX ; Start 04/17/17 at 02:00 Ceftriaxone Sodium (Rocephin) 50 ml @ 100 mls/hr Q24H IVPB ; Start 04/17/17 at 02:00 Miscellaneous Information 1 ea NOTE XX ; Start 04/17/17 at 03:00 Glucose (Glutose) 15 gm Q15M PRN PO DECREASED GLUCOSE; Start 04/17/17 at 03:00 Glucose (Glutose) 22.5 gm Q15M PRN PO DECREASED GLUCOSE; Start 04/17/17 at 03: 00 Dextrose (D50w Syringe) 25 ml Q15M PRN IV DECREASED GLUCOSE; Start 04/17/17 at 03:00 Dextrose (D50w Syringe) 50 ml Q15M PRN IV DECREASED GLUCOSE; Start 04/17/17 at 03:00 Glucagon (Glucagen) 1 mg Q15M PRN IM DECREASED GLUCOSE; Start 04/17/17 at 03:00 Glucose (Glutose) 15 gm Q15M PRN BUCCAL DECREASED GLUCOSE; Start 04/17/17 at 03 :00 Atorvastatin Calcium (Lipitor) 40 mg QHS PO ; Start 04/17/17 at 21:00 Acetaminophen (Tylenol Tab) 325 mg Q4 PRN PO PAIN AND OR ELEVATED TEMP; Start 04/17/17 at 03:30 Apixaban (Eliquis) 2.5 mg BID PO Last administered on 04/17/17 08:47; Admin Dose 2.5 MG; Start 04/17/17 at 09:00 Metoprolol Succinate (Toprol Xl) 25 mg BID PO Last administered on 04/17/17 08 :47; Admin Dose 25 MG; Start 04/17/17 at 09:00 Pantoprazole 40 mg 40 mg DAILY@06 PO Last administered on 04/17/17 06:22; Admin Dose 40 MG; Start 04/17/17 at 06:00 Sodium Chloride (NS) 1,000 ml @ 100 mls/hr Q10H IV Last administered on t 10:56; Admin Dose 100 MLS/HR; Start 04/17/17 at 10:30 CARLY EVANS MD Apr 17, 2017 13:23
[2017-04-17 14:10] VITALS: BP 133/63; RESP 18
--- NOTE | 2017-04-17 15:26 | CONS ---
Date/Time of Note Date/Time of Note DATE: 04/17/17 TIME: 15:24 Assessment/Plan Assessment/Plan Chief Complaint/Hosp Course EVELINE DEHYDRATION POSS DRUG INDUCED RENAL FAILURE DM HTN CKD PLAN IV FLUID DC METFORMIN AND DIOVAN Problems: Consultation Date/Type/Reason Admit Date/Time Apr 17, 2017 at 00:30 Initial Consult Date 04/17/17 Type of Consultation: renal 24387 24 HR Interval Summary Subjective hx not possible: other (no distress) Exam/Review of Systems Vital Signs Vitals Vital Signs Date Time Temp Pulse Resp B/P Pulse Ox O2 Delivery O2 Flow Rate FiO2 04/17/17 14:16 88 18 96 Nasal Cannula 2.0 04/17/17 14:10 98.3 133/63 Intake and Output 04/16/17 04/16/17 04/17/17 15:00 23:00 07:00 Intake Total 280 ml Balance 280 ml Exam Neck: supple Respiratory: clear to auscultation Cardiovascular: regular rate and rhythm Gastrointestinal: soft Musculoskeletal: nl extremities to inspection Extremities: normal pulses Neurological: NOVELTY CANDY MAKER II-XII intact, nl mental status Results Result Diagram: 04/16/17 2318 04/17/17 1230 Results 24 hrs Laboratory Tests Test 04/16/17 23:18 04/17/17 01:31 04/17/17 08:41 04/17/17 12:30 White Blood Count 9.1 # Red Blood Count 2.73 L Hemoglobin 8.5 L Hematocrit 27.0 L Mean Corpuscular Volume 98.9 Mean Corpuscular Hemoglobin 31.1 Mean Corpuscular Hemoglobin Concent 31.5 L Red Cell Distribution Width 16.2 H Platelet Count 275 Mean Platelet Volume 10.1 Neutrophils % 64.5 Lymphocytes % 23.3 Monocytes % 8.1 Eosinophils % 3.1 Basophils % 0.2 Nucleated Red Blood Cells % 0.0 Neutrophils # (Manual) 5.9 Lymphocytes # 2.1 Monocytes # 0.7 Eosinophils # 0.3 Basophils # 0.0 Nucleated Red Blood Cells # 0.0 Urine Color YELLOW Urine Clarity CLEAR Urine pH 5.0 Urine Specific [place] 1.014 Urine Ketones NEGATIVE Urine Nitrite NEGATIVE Urine Bilirubin NEGATIVE Urine Urobilinogen NEGATIVE Urine Leukocyte Esterase NEGATIVE Urine Hemoglobin NEGATIVE Urine Glucose NEGATIVE Urine Total Protein NEGATIVE Sodium Level 140 141 Potassium Level 4.6 4.8 Chloride Level 97 98 Carbon Dioxide Level 31 33 H Anion Gap 17 H 15 Blood Urea Nitrogen 54 H 49 H Creatinine 4.52 H 4.47 H Glucose Level 107 156 Calcium Level 8.6 8.5 Total Bilirubin 0.0 L Direct Bilirubin 0.00 Indirect Bilirubin 0.0 Aspartate Amino Transf (AST/SGOT) 26 Alanine Aminotransferase (ALT/SGPT) 31 Alkaline Phosphatase 96 Troponin I < 0.012 Total Protein 6.9 Albumin 3.3 Globulin 3.60 H Albumin/Globulin Ratio 0.91 Bedside Glucose 139 222 H Test 04/17/17 13:14 Bedside Glucose 150 Medications Medications Current Medications Diagnostic Test (Pha) (Accu-Chek) 1 ea 02 XX ; Start 04/17/17 at 02:00 Insulin Glargine (Lantus) 15 unit HS SC ; Start 04/17/17 at 21:00 Diagnostic Test (Pha) 1 ea 1 ea 02 XX ; Start 04/17/17 at 02:00 Ceftriaxone Sodium (Rocephin) 50 ml @ 100 mls/hr Q24H IVPB ; Start 04/17/17 at 02:00 Miscellaneous Information 1 ea NOTE XX ; Start 04/17/17 at 03:00 Glucose (Glutose) 15 gm Q15M PRN PO DECREASED GLUCOSE; Start 04/17/17 at 03:00 Glucose (Glutose) 22.5 gm Q15M PRN PO DECREASED GLUCOSE; Start 04/17/17 at 03: 00 Dextrose (D50w Syringe) 25 ml Q15M PRN IV DECREASED GLUCOSE; Start 04/17/17 at 03:00 Dextrose (D50w Syringe) 50 ml Q15M PRN IV DECREASED GLUCOSE; Start 04/17/17 at 03:00 Glucagon (Glucagen) 1 mg Q15M PRN IM DECREASED GLUCOSE; Start 04/17/17 at 03:00 Glucose (Glutose) 15 gm Q15M PRN BUCCAL DECREASED GLUCOSE; Start 04/17/17 at 03 :00 Atorvastatin Calcium (Lipitor) 40 mg QHS PO ; Start 04/17/17 at 21:00 Acetaminophen (Tylenol Tab) 325 mg Q4 PRN PO PAIN AND OR ELEVATED TEMP; Start 04/17/17 at 03:30 Apixaban (Eliquis) 2.5 mg BID PO Last administered on 04/17/17t 08:47; Admin Dose 2.5 MG; Start 04/17/17 at 09:00 Metoprolol Succinate (Toprol Xl) 25 mg BID PO Last administered on 04/17/17 08 :47; Admin Dose 25 MG; Start 04/17/17 at 09:00 Pantoprazole 40 mg 40 mg DAILY@06 PO Last administered on 04/17/17 06:22; Admin Dose 40 MG; Start 04/17/17 at 06:00 Sodium Chloride (NS) 1,000 ml @ 100 mls/hr Q10H IV Last administered on 10:56; Admin Dose 100 MLS/HR; Start 04/17/17 at 10:30 Aspirin (Halfprin) 81 mg DAILY PO ; Start 04/18/17 at 09:00 Valsartan (Diovan) 80 mg DAILY PO ; Start 04/18/17 at 09:00 CADE GRACIA MD Apr 17, 2017 15:26
--- NOTE | 2017-04-17 15:34 | CONS ---
DATE OF ADMISSION: 04/17/2017 DATE OF CONSULTATION: 04/17/2017 REASON FOR CONSULTATION: Antibiotic management. HISTORY OF PRESENT ILLNESS: Laurie Carroll is an 86-year-old female who was brought in to the emergency room from [facility] with increased confusion and history of senile dementia. She was brought in by ambulance. Her primary doctor is Dr. Henrdickson. PROBLEMS: 1. Senile dementia. 2. Adult-onset diabetes mellitus. 3. Hyperlipidemia. 4. History of smoking in the past. Acutely, the patient has white count of 9.1, H and H of 8.5 and 27, platelet count 275,000. BUN creatinine 54/4.52, glucose of random of 107. A chest x-ray shows bibasilar lung opacities likely representing atelectasis, mild bibasilar lung opacities. Her urine is negative for leukocyte esterase and for nitrites. PAST MEDICAL HISTORY: Operations as outlined. FAMILY HISTORY: Unobtainable. SOCIAL HISTORY: She lives in a longterm. She is a former smoker. She does not drink or abuse drugs. ALLERGIES: NONE TO PENICILLIN, SULFA, OR FOODS. MEDICATION: Per chart. REVIEW OF SYSTEMS: As per HPI. PHYSICAL EXAMINATION: GENERAL: Patient is an elderly appearing female who was awake, confused, in no acute distress. VITAL SIGNS: Stable. She is afebrile. SKIN: Without generalized rash. HEENT: Within normal limits. NECK: Supple. Lymph nodes not palpable. CHEST: Decreased breath sounds at the bases. HEART: Without murmur or gallop. ABDOMEN: Soft, nontender, nondistended, without organosplenomegaly or masses. EXTREMITIES: Without cyanosis, clubbing, or edema. RECTAL/GENITAL: Deferred. NEUROLOGICAL: The patient is confused. No focal neurological abnormalities. TREATMENT: The patient was given ceftriaxone empirically but her urine came back negative for infection. She was found to have acute renal failure with a BUN creatinine of 54/4.52 which is elevated from when she was here previously in the beginning of the month. She is also showing some encephalopathy as well as some degree of anemia, with a BUN creatinine of 8.5 and 27. We will continue her on the ceftriaxone for the time being. Her urine culture is pending. I will dictate my findings to Dr. Hendrickson. Dictated By: Joe Amaya MD JD/maurilio/[email or web address] /Document#: [id number]
--- NOTE | 2017-04-17 16:25 | CONS ---
DATE OF ADMISSION: 04/17/2017 DATE OF CONSULTATION: 04/17/2017 HISTORY OF PRESENT ILLNESS: Thank you for kindly asking me to see this patient in nephrology consultation. The patient has a history of hypoxic respiratory failure due to aspiration pneumonia, history of sepsis, history of tachycardia with atrial fibrillation and rapid ventricular response, history of esophagitis, diabetes mellitus, history of hypertension, history of GI bleed, history of hypothyroidism, history of gastritis and esophagitis. Recently discharged from this hospital with hematocrit 36.6, BUN 35, creatinine 1.2, glucose 145. The patient had CT chest done which was negative for PE. The patient now presents with altered mental status. The patient now noted to have electrolyte imbalance with BUN 54, creatinine 4.52, and a nephrology consultation was requested. PAST MEDICAL HISTORY: Positive for CKD, history of diabetes, hypertension, sepsis, bronchitis, history of gastritis. The patient also has a history of dementia. ALLERGIES: NONE. FAMILY HISTORY: Denies. SOCIAL HISTORY: Denies. MEDICATION: Tylenol, Epixaban, aspirin, Lipitor, Baclofen, Aricept, insulin, Xopenex, Metformin, metoprolol, Protonix, Januvia and Diovan. REVIEW OF SYSTEMS: HEENT: Unremarkable. RESPIRATORY: Unremarkable. CARDIOVASCULAR: Unremarkable. ABDOMEN: Unremarkable. GENITOURINARY: No hematuria or dysuria. EXTREMITIES: Unremarkable. PHYSICAL EXAMINATION: GENERAL APPEARANCE: The patient is awake, alert and anxious, at times confused. VITAL SIGNS: Pulse 73, blood pressure 133/63. HEENT: Head is atraumatic, normocephalic. Pupils equal and reactive to light. No pale conjunctivae. NECK: Supple, no JVD. LUNGS: Clear. CARDIAC: S1 and S2 normal. ABDOMEN: Soft, obese. Bowel sounds positive. No palpable mass. No hepatosplenomegaly. No guarding or rebound tenderness. EXTREMITIES: There is no cyanosis, clubbing or edema. VALIDATION TECHNICIAN: The patient is awake, alert with no focal deficits. LABORATORY: WBC 9.1, hematocrit 27, sodium 149, potassium 4.0, BUN 49, creatinine 1.47. Ultrasound of the kidney was normal examination. Chest x-ray negative. IMPRESSION: 1. Acute kidney injury with chronic kidney disease. Acute kidney injury due to dehydration. 2. Rule out drug induced acute renal failure in the form of ARB with the patient on metformin. 3. Diabetes mellitus. 4. Chronic kidney disease. 5. History of gastritis. 6. Anemia. 7. History of congestive heart failure. 8. Incomplete data, need sodium, creatinine and eosinophils, discontinue metformin. TREATMENT: Continue intravenous fluid and avoid NSAID and nephrotoxic agents as much as possible. The patient is currently on Rocephin. The patient is on Epixaban and Lipitor. The patient is on Baclofen which has been stopped. The patient is on metformin which has been stopped. The patient was on Diovan, stopped. Will follow BMP, IV fluids. Thank you for asking us to see this patient in nephrology consultation. Dictated By: Bolivar Singh MD /maurilio/[email or web address] /Document#: [id number]
[2017-04-17] MEDS: INSULIN GLARGINE [LANtus] 3 ML PEN SC SCH (20:06)
[2017-04-17] MEDS: ATORVASTATIN 40 MG TAB PO SCH (20:09)
[2017-04-17 20:30] VITALS: BP 139/63; RESP 16
[2017-04-17] MEDS ORDERED: metFORMIN (XR) 500 MG TAB PO SCH (21:00)
[2017-04-17] MEDS ORDERED: DONEPEZIL 5 MG TAB PO SCH (21:00)
[2017-04-18] MEDS: LEVALBUTEROL (NEB) 0.63 MG/3 ML AMP INH SCH ×4 (02:00→19:53)
[2017-04-18] MEDS: ACCU-CHEK XX SCH ×2 (02:00)
[2017-04-18 02:41] VITALS: BP 141/62; RESP 16
[2017-04-18] MEDS: CEFTRIAXONE 1 GM/50 ML (PMX) 50 ML IVPB SCH (02:48)
[2017-04-18] MEDS: ACETAMINOPHEN 325 MG TAB PO PRN (03:03)
[2017-04-18] MEDS: PANTOPRAZOLE (EC) 40 MG TAB PO SCH ×2 (05:12→08:47)
[2017-04-18] MEDS: SOD CHLORIDE 0.9% 1,000 ML IV SCH ×2 (06:01→16:05)
[2017-04-18 08:00] VITALS: BP 164/59; RESP 20
[2017-04-18] MEDS: INSULIN ASPART [NOVOLOG] 3 ML PEN SC SCH ×4 (08:03→21:31)
[2017-04-18] MEDS: ASPIRIN (EC) 81 MG TAB PO SCH (08:46)
[2017-04-18] MEDS: APIXABAN 5 MG TABLET PO SCH ×2 (08:46→21:21)
[2017-04-18] MEDS: METOPROLOL (XL) 25 MG TAB PO SCH ×2 (08:47→21:23)
[2017-04-18] MEDS ORDERED: VALSARTAN 80 MG TAB PO SCH (09:00)
[2017-04-18 10:22] VITALS: BP 148/52; PULSE 68
--- NOTE | 2017-04-18 11:41 | PN ---
Date/Time of Note Date/Time of Note DATE: 04/18/17 TIME: 11:33 Assessment/Plan VTE Prophylaxis VTE Prophylaxis Intervention: SCD's Lines/Catheters IV [facility]from [facility]): Peripheral IV Urinary Cath still in place: No Assessment/Plan Chief Complaint/Hosp Course Patient is able to follow immediate commands, however, gets anxious and impulsive, refused lab draw. Continue one-to-one sitter. Problems: Assessment/Plan - Acute kidney injury related to dehydration and possible urinary tract infection. is following in nephrology consultation. - Diabetes mellitus. Metformin is held due to acute kidney injury, continue Lantus and NovoLog. - Anemia, will obtain stool for OB. Continue to monitor H&H. - Essential hypertension - History of atrial fibrillation with rapid ventricular response, continue metoprolol and Eliquis. - Hyperlipidemia, continue statin. Recommendations based on clinical course. Plan of care discussed with Dr. Hendrickson. Exam/Review of Systems Vital Signs Vitals Vital Signs Date Time Temp Pulse Resp B/P Pulse Ox O2 Delivery O2 Flow Rate FiO2 04/18/17 10:22 68 148/52 04/18/17 08:00 98.3 20 95 04/18/17 07:43 21 04/17/17 14:16 Nasal Cannula 2.0 Intake and Output 04/17/17 04/17/17 04/18/17 15:00 23:00 07:00 Intake Total 700 ml 840 ml 1480 ml Balance 700 ml 840 ml 1480 ml Exam Constitutional: alert Psych: confusion Head: normocephalic Neck: supple Respiratory: normal air movement Cardiovascular: nl pulses Gastrointestinal: non-tender, soft Extremities: edema Neurological: confused Results Result Diagram: 04/16/17 2318 04/17/17 1230 Results 24 hrs Laboratory Tests Test 04/17/17 12:30 04/17/17 13:14 04/17/17 17:19 04/17/17 20:03 Sodium Level 141 Potassium Level 4.8 Chloride Level 98 Carbon Dioxide Level 33 H Anion Gap 15 Blood Urea Nitrogen 49 H Creatinine 4.47 H Glucose Level 156 Calcium Level 8.5 Bedside Glucose 150 192 216 Test 04/18/17 08:00 Bedside Glucose 220 Medications Medications Current Medications Diagnostic Test (Pha) (Accu-Chek) 1 XX ; Start 04/17/17 at 02:00 Insulin Glargine (Lantus) 15 unit HS SC Last administered on 04/17/17 20:06; Admin Dose 15 UNIT; Start 04/17/17 at 21:00 Diagnostic Test (Pha) 1 ea 1 ea 02 XX ; Start 04/17/17 at 02:00 Ceftriaxone Sodium (Rocephin) 50 ml @ 100 mls/hr Q24H IVPB Last administered on 04/18/17 02:48; Admin Dose 100 MLS/HR; Start 04/17/17 at 02:00 Miscellaneous Information 1 ea NOTE XX ; Start 04/17/17 at 03:00 Glucose (Glutose) 15 gm Q15M PRN PO DECREASED GLUCOSE; Start 04/17/17 at 03:00 Glucose (Glutose) 22.5 gm Q15M PRN PO DECREASED GLUCOSE; Start 04/17/17 at 03: 00 Dextrose (D50w Syringe) 25 ml Q15M PRN IV DECREASED GLUCOSE; Start 04/17/17 at 03:00 Dextrose (D50w Syringe) 50 ml Q15M PRN IV DECREASED GLUCOSE; Start 04/17/17 at 03:00 Glucagon (Glucagen) 1 mg Q15M PRN IM DECREASED GLUCOSE; Start 04/17/17 at 03:00 Glucose (Glutose) 15 gm Q15M PRN BUCCAL DECREASED GLUCOSE; Start 04/17/17 at 03 :00 Atorvastatin Calcium (Lipitor) 40 mg QHS PO Last administered on 04/17/17 20: 09; Admin Dose 40 MG; Start 04/17/17 at 21:00 Acetaminophen (Tylenol Tab) 325 mg Q4 PRN PO PAIN AND OR ELEVATED TEMP Last administered on 04/18/17 03:03; Admin Dose 325 MG; Start 04/17/17 at 03:30 Apixaban (Eliquis) 2.5 mg BID PO Last administered on 04/18/17 08:46; Admin Dose 2.5 MG; Start 04/17/17 at 09:00 Metoprolol Succinate (Toprol Xl) 25 mg BID PO Last administered on 04/18/17 08 :47; Admin Dose 25 MG; Start 04/17/17 at 09:00 Pantoprazole 40 mg 40 mg DAILY@06 PO Last administered on 04/18/17 08:47; Admin Dose 40 MG; Start 04/17/17 at 06:00 Sodium Chloride (NS) 1,000 ml @ 100 mls/hr Q10H IV Last administered on 06:01; Admin Dose 100 MLS/HR; Start 04/17/17 at 10:30 Aspirin (Halfprin) 81 mg DAILY PO Last administered on 04/18/17 08:46; Admin Dose 81 MG; Start 04/18/17 at 09:00 SIMBA MALDONADO Apr 18, 2017 11:41
--- NOTE | 2017-04-18 12:02 | CONS ---
Date/Time of Note Date/Time of Note DATE: 04/18/17 TIME: 11:56 Assessment/Plan Assessment/Plan Chief Complaint/Hosp Course 86 y/o with 1 Acute kidney injury likely due to due to dehydration with meds. Renal U.S negative for hydronephrosis 2. Rule out drug induced acute renal failure in the form of ARB with the patient on metformin. 3. Diabetes mellitus. 4. Chronic kidney disease. 5. History of gastritis. 6. Anemia. 7. History of congestive heart failure. 8. dementia Recs - On NS 100 cc/hr . urine studies pending - Strict I/O - Pt was explained to get lab draw to assess but pt refused - avoid all nephrotoxic agents - Hold baclofen, diovan, metformin - Renally dose all meds Problems: Consultation Date/Type/Reason Admit Date/Time Apr 17, 2017 at 00:30 Initial Consult Date 04/17/17 Type of Consultation: renal 42210 24 HR Interval Summary Free Text/Dictation Pt is refusing lab draws Spoke to patient with help of electronic technician with RN present at bedside ; pt is refusing blood draws, saying that she had multiple since here.Explained to her the need to get bloos draws to check for kidney function but pt refused she said " all you are doing is blood draw" and not doing any treatment Exam/Review of Systems Vital Signs Vitals Vital Signs Date Time Temp Pulse Resp B/P Pulse Ox O2 Delivery O2 Flow Rate FiO2 04/18/17 10:22 68 148/52 04/18/17 08:00 98.3 20 95 04/18/17 07:43 21 04/17/17 14:16 Nasal Cannula 2.0 Intake and Output 04/17/17 04/17/17 04/18/17 14:59 22:59 06:59 Intake Total 300 ml 1240 ml 1480 ml Balance 300 ml 1240 ml 1480 ml Exam Gen: awake, answers question, confused in between Neck:supple CVS:Regular rate and rtyhm Lungs:clear ext ; no edema Results Result Diagram: 04/16/17 2318 04/17/17 1230 Results 24 hrs Laboratory Tests Test 04/17/17 12:30 04/17/17 13:14 04/17/17 17:19 04/17/17 20:03 Sodium Level 141 Potassium Level 4.8 Chloride Level 98 Carbon Dioxide Level 33 H Anion Gap 15 Blood Urea Nitrogen 49 H Creatinine 4.47 H Glucose Level 156 Calcium Level 8.5 Bedside Glucose 150 192 216 Test 04/18/17 08:00 04/18/17 11:31 Bedside Glucose 220 176 Medications Medications Current Medications Diagnostic Test (Pha) (Accu-Chek) 1 ea 02 XX ; Start 04/17/17 at 02:00 Insulin Glargine (Lantus) 15 unit HS SC Last administered on 04/17/17 20:06; Admin Dose 15 UNIT; Start 04/17/17 at 21:00 Diagnostic Test (Pha) 1 ea 1 ea 02 XX ; Start 04/17/17 at 02:00 Ceftriaxone Sodium (Rocephin) 50 ml @ 100 mls/hr Q24H IVPB Last administered on 04/18/17 02:48; Admin Dose 100 MLS/HR; Start 04/17/17 at 02:00 Miscellaneous Information 1 ea NOTE XX ; Start 04/17/17 at 03:00 Glucose (Glutose) 15 gm Q15M PRN PO DECREASED GLUCOSE; Start 04/17/17 at 03:00 Glucose (Glutose) 22.5 gm Q15M PRN PO DECREASED GLUCOSE; Start 04/17/17 at 03: 00 Dextrose (D50w Syringe) 25 ml Q15M PRN IV DECREASED GLUCOSE; Start 04/17/17 at 03:00 Dextrose (D50w Syringe) 50 ml Q15M PRN IV DECREASED GLUCOSE; Start 04/17/17 at 03:00 Glucagon (Glucagen) 1 mg Q15M PRN IM DECREASED GLUCOSE; Start 04/17/17 at 03:00 Glucose (Glutose) 15 gm Q15M PRN BUCCAL DECREASED GLUCOSE; Start 04/17/17 at 03 :00 Atorvastatin Calcium (Lipitor) 40 mg QHS PO Last administered on 04/17/17 20: 09; Admin Dose 40 MG; Start 04/17/17 at 21:00 Acetaminophen (Tylenol Tab) 325 mg Q4 PRN PO PAIN AND OR ELEVATED TEMP Last administered on 04/18/17 03:03; Admin Dose 325 MG; Start 04/17/17 at 03:30 Apixaban (Eliquis) 2.5 mg BID PO Last administered on 04/18/17 08:46; Admin Dose 2.5 MG; Start 04/17/17 at 09:00 Metoprolol Succinate (Toprol Xl) 25 mg BID PO Last administered on 04/18/17 08 :47; Admin Dose 25 MG; Start 04/17/17 at 09:00 Pantoprazole 40 mg 40 mg DAILY@06 PO Last administered on 04/18/17 08:47; Admin Dose 40 MG; Start 04/17/17 at 06:00 Sodium Chloride (NS) 1,000 ml @ 100 mls/hr Q10H IV Last administered on 06:01; Admin Dose 100 MLS/HR; Start 04/17/17 at 10:30 Aspirin (Halfprin) 81 mg DAILY PO Last administered on 04/18/17 08:46; Admin Dose 81 MG; Start 04/18/17 at 09:00 SUNITHA JOINER MD Apr 18, 2017 12:02
[2017-04-18 12:41] LABS: PROTEIN/CREAT RATIO 0.73 RATIO
[2017-04-18 14:52] VITALS: BP 138/63; RESP 20
[2017-04-18 20:07] VITALS: BP_SYST 118; BP_DIAS 46; BP_DIAS 64; RESP 19
[2017-04-18] MEDS: ATORVASTATIN 40 MG TAB PO SCH (21:21)
[2017-04-18] MEDS: INSULIN GLARGINE [LANtus] 3 ML PEN SC SCH (21:30)
[2017-04-19] MEDS: LEVALBUTEROL (NEB) 0.63 MG/3 ML AMP INH SCH ×4 (01:11→19:33)
[2017-04-19] MEDS: ACCU-CHEK XX SCH ×2 (02:00)
[2017-04-19] MEDS: CEFTRIAXONE 1 GM/50 ML (PMX) 50 ML IVPB SCH (02:12)
[2017-04-19 02:28] VITALS: BP 144/61; RESP 18
--- NOTE | 2017-04-19 02:33 | PN ---
DATE: 04/18/2017 SUBJECTIVE DATA: No acute changes. Patient is alert, denies pain. No nausea, vomiting, diarrhea. No fevers. LABORATORY AND DIAGNOSTIC DATA: No labs this morning. Urinalysis was negative. MICROBIOLOGY: Urine culture grew staph species. IMAGING STUDIES: Diagnostic renal ultrasound yesterday revealed no acute abnormalities. ANTIMICROBIALS: Patient is on Rocephin. OBJECTIVE DATA: GENERAL: This is a fragile, well-developed, elderly woman, who is in no distress. HEENT: Head atraumatic, normocephalic. Sclerae anicteric. Buccal mucosa pink. NECK: Supple. RESPIRATORY: Chest rise symmetrical. Breath sounds diminished at the bases. HEART: S1, S2. ABDOMEN: Soft, bowel sounds present. EXTREMITIES: Without cyanosis. ASSESSMENT: 1. Acute encephalopathy, resolving. 2. Dementia. 3. Diabetes. 4. Anemia. PLAN: Patient remains stable. She is being followed by multiple consultants. Urine culture grew staph species, likely contaminated specimen. Mental status is improving. We are going to discontinue antibiotics and observe her. Dictated By: Jayme Horton NP /maurilio/ace /Document#: [id number]
[2017-04-19] MEDS: LEVALBUTEROL (NEB) 0.63 MG/3 ML AMP HHN PRN (05:49)
[2017-04-19] MEDS: PANTOPRAZOLE (EC) 40 MG TAB PO SCH (06:02)
[2017-04-19] MEDS: SOD CHLORIDE 0.9% 1,000 ML IV SCH ×2 (06:04→12:18)
[2017-04-19 06:13] LABS: BASOPHILS % 0.3 % (0.0-2.0); EOSINOPHILS # 0.2 10^3/ul (0.0-0.5); EOSINOPHILS % 2.3 % (0.0-7.0); HEMATOCRIT 29.6 % (37.0-47.0); HEMOGLOBIN 8.9 g/dl (12.0-16.0); LYMPHOCYTES # 2.3 10^3/ul (0.8-2.9); LYMPHOCYTES % 21.8 % (15.0-51.0); MEAN CORPUSCULAR HEMOGLOBIN 30.3 pg (29.0-33.0); MEAN CORPUSCULAR HGB CONC 30.1 g/dl (32.0-37.0); MEAN CORPUSCULAR VOLUME 100.7 fl (82.0-101.0); MEAN PLATELET VOLUME 10.2 fl (7.4-10.4); MONOCYTE # 0.8 10^3/ul (0.3-0.9); MONOCYTES % 7.4 % (0.0-11.0); NEUTROPHILS % 66.9 % (39.0-77.0); PLATELET COUNT 336 10^3/UL (140-415); RED BLOOD COUNT 2.94 10^6/ul (4.20-5.40); RED CELL DISTRIBUTION WIDTH 16.2 % (11.5-14.5); WHITE BLOOD COUNT 10.5 10^3/ul (4.8-10.8)
[2017-04-19 07:02] LABS: ALBUMIN 3.5 g/dl (3.3-4.9); CALCIUM 8.3 mg/dl (8.4-10.2); CREATININE 3.72 mg/dl (0.44-1.00); POTASSIUM 5.2 mmol/L (3.5-5.1)
[2017-04-19 07:34] VITALS: BP 139/63; RESP 17
[2017-04-19] MEDS: INSULIN ASPART [NOVOLOG] 3 ML PEN SC SCH ×4 (08:29→21:19)
[2017-04-19] MEDS ORDERED: NA POLYST SULFON 15 GM/60 ML BTL PO ONE (09:00)
[2017-04-19] MEDS: ASPIRIN (EC) 81 MG TAB PO SCH (09:26)
[2017-04-19] MEDS: APIXABAN 5 MG TABLET PO SCH ×2 (09:26→21:21)
[2017-04-19] MEDS: METOPROLOL (XL) 25 MG TAB PO SCH ×2 (09:27→21:21)
--- NOTE | 2017-04-19 13:51 | CONS ---
Date/Time of Note Date/Time of Note DATE: 04/19/17 TIME: 13:50 Assessment/Plan Assessment/Plan Chief Complaint/Hosp Course SUBJECTIVE DATA: No acute changes. Looks comfortable. Temperature 98.2 pulse 70 respirations 17 blood pressure 139/63 saturation 95 on 2 L WBC 10.5 H&H 8.9 and 29.6 platelets 336 no shift BUN 46 creatinine 3.72 MICROBIOLOGY: Urine culture grew staph species. IMAGING STUDIES: Diagnostic renal ultrasound revealed no acute abnormalities. GENERAL: This is a fragile, well-developed, elderly woman, who is in no distress. HEENT: Head atraumatic, normocephalic. Sclerae anicteric. Buccal mucosa pink. NECK: Supple. RESPIRATORY: Chest rise symmetrical. Breath sounds diminished at the bases. HEART: S1, S2. ABDOMEN: Soft, bowel sounds present. EXTREMITIES: Without cyanosis. ASSESSMENT: 1. Acute encephalopathy, resolving. 2. Dementia. 3. Diabetes. 4. Anemia. PLAN: Patient remains stable. Continue present care, f/u nephrology rec-s, repeat cx's lizandede in am staff Problems: Consultation Date/Type/Reason Admit Date/Time Apr 17, 2017 at 00:30 Initial Consult Date 04/17/17 Type of Consultation: id Exam/Review of Systems Vital Signs Vitals Vital Signs Date Time Temp Pulse Resp B/P Pulse Ox O2 Delivery O2 Flow Rate FiO2 04/19/17 13:37 2.0 04/19/17 13:36 Nasal Cannula 04/19/17 08:22 71 20 95 04/19/17 07:34 98.2 139/63 04/18/17 19:56 21 Intake and Output 04/18/17 04/18/17 04/19/17 15:00 23:00 07:00 Intake Total 2400 ml 1500 ml Output Total 850 ml Balance 1550 ml 1500 ml Results Result Diagram: 04/19/17 0532 04/19/17 0532 Results 24 hrs Laboratory Tests Test 04/18/17 17:08 04/18/17 21:25 04/19/17 02:05 04/19/17 05:32 Bedside Glucose 244 H 210 204 White Blood Count 10.5 Red Blood Count 2.94 L Hemoglobin 8.9 L Hematocrit 29.6 L Mean Corpuscular Volume 100.7 Mean Corpuscular Hemoglobin 30.3 Mean Corpuscular Hemoglobin Concent 30.1 L Red Cell Distribution Width 16.2 H Platelet Count 336 # Mean Platelet Volume 10.2 Neutrophils % 66.9 Lymphocytes % 21.8 Monocytes % 7.4 Eosinophils % 2.3 Basophils % 0.3 Nucleated Red Blood Cells % 0.0 Neutrophils # (Manual) 7.0 Lymphocytes # 2.3 Monocytes # 0.8 Eosinophils # 0.2 Basophils # 0.0 Nucleated Red Blood Cells # 0.0 Sodium Level 147 H Potassium Level 5.2 H Chloride Level 104 Carbon Dioxide Level 28 Anion Gap 20 H Blood Urea Nitrogen 46 H Creatinine 3.72 H Glucose Level 219 Hemoglobin A1c 6.4 H Calcium Level 8.3 L Total Bilirubin 0.0 L Direct Bilirubin 0.00 Indirect Bilirubin 0.0 Aspartate Amino Transf (AST/SGOT) 105 H Alanine Aminotransferase (ALT/SGPT) 108 H Alkaline Phosphatase 210 H Total Protein 7.0 Albumin 3.5 Globulin 3.50 H Albumin/Globulin Ratio 1.00 Test 04/19/17 08:21 04/19/17 12:16 Bedside Glucose 269 H 100 Medications Medications Current Medications Diagnostic Test (Pha) (Accu-Chek) 1 ea 02 XX ; Start 04/17/17 at 02:00 Insulin Glargine (Lantus) 15 unit HS SC Last administered on 04/18/17 21:30; Admin Dose 15 UNIT; Start 04/17/17 at 21:00 Diagnostic Test (Pha) 1 ea 1 ea 02 XX ; Start 04/17/17 at 02:00 Ceftriaxone Sodium (Rocephin) 50 ml @ 100 mls/hr Q24H IVPB Last administered on 04/19/17 02:12; Admin Dose 100 MLS/HR; Start 04/17/17 at 02:00 Miscellaneous Information 1 ea NOTE XX ; Start 04/17/17 at 03:00 Glucose (Glutose) 15 gm Q15M PRN PO DECREASED GLUCOSE; Start 04/17/17 at 03:00 Glucose (Glutose) 22.5 gm Q15M PRN PO DECREASED GLUCOSE; Start 04/17/17 at 03: 00 Dextrose (D50w Syringe) 25 ml Q15M PRN IV DECREASED GLUCOSE; Start 04/17/17 at 03:00 Dextrose (D50w Syringe) 50 ml Q15M PRN IV DECREASED GLUCOSE; Start 04/17/17 at 03:00 Glucagon (Glucagen) 1 mg Q15M PRN IM DECREASED GLUCOSE; Start 04/17/17 at 03:00 Glucose (Glutose) 15 gm Q15M PRN BUCCAL DECREASED GLUCOSE; Start 04/17/17 at 03 :00 Atorvastatin Calcium (Lipitor) 40 mg QHS PO Last administered on 04/18/17 21: 21; Admin Dose 40 MG; Start 04/17/17 at 21:00 Acetaminophen (Tylenol Tab) 325 mg Q4 PRN PO PAIN AND OR ELEVATED TEMP Last administered on 04/18/17 03:03; Admin Dose 325 MG; Start 04/17/17 at 03:30 Apixaban (Eliquis) 2.5 mg BID PO Last administered on 04/19/17 09:26; Admin Dose 2.5 MG; Start 04/17/17 at 09:00 Metoprolol Succinate (Toprol Xl) 25 mg BID PO Last administered on 04/19/17 09 :27; Admin Dose 25 MG; Start 04/17/17 at 09:00 Pantoprazole 40 mg 40 mg DAILY@06 PO Last administered on 04/19/17 06:02; Admin Dose 40 MG; Start 04/17/17 at 06:00 Sodium Chloride (NS) 1,000 ml @ 100 mls/hr Q10H IV Last administered on 06:04; Admin Dose 100 MLS/HR; Start 04/17/17 at 10:30 Aspirin (Halfprin) 81 mg DAILY PO Last administered on 04/19/17 09:26; Admin Dose 81 MG; Start 04/18/17 at 09:00 HAO CUTLER NP Apr 19, 2017 13:51
[2017-04-19 14:00] VITALS: BP 141/63; RESP 17
--- NOTE | 2017-04-19 14:08 | CONS ---
Date/Time of Note Date/Time of Note DATE: 04/19/17 TIME: 14:05 Assessment/Plan Assessment/Plan Chief Complaint/Hosp Course 86 y/o with 1 Acute kidney injury likely due to due to dehydration plus meds. Renal U.S negative for hydronephrosis 2. Rule out drug induced acute renal failure in the form of ARB with the patient on metformin. 3 Mild hyperkalemia 4 Hypernatremia 5 Diabetes mellitus. 6 Chronic kidney disease. 7 History of gastritis. 8. Anemia. 9 History of congestive heart failure. 10 dementia Recs - Change fluids to 1/2 NS , BUN/Cr improving, U/A neg for active sediment - Kayexalate for hyperkalemia - Strict I/O; spoke to nurse - Renal diet - avoid all nephrotoxic agents - Hold baclofen, diovan, metformin - Renally dose all meds Problems: Consultation Date/Type/Reason Admit Date/Time Apr 17, 2017 at 00:30 Initial Consult Date 04/17/17 Type of Consultation: Nephrology 24 HR Interval Summary Free Text/Dictation Less agitated today UOP 850 ml but per nursing urinating a lot more Exam/Review of Systems Vital Signs Vitals Vital Signs Date Time Temp Pulse Resp B/P Pulse Ox O2 Delivery O2 Flow Rate FiO2 04/19/17 13:37 2.0 04/19/17 13:36 Nasal Cannula 04/19/17 08:22 71 20 95 04/19/17 07:34 98.2 139/63 04/18/17 19:56 21 Intake and Output 04/18/17 04/18/17 04/19/17 15:00 23:00 07:00 Intake Total 2400 ml 1500 ml Output Total 850 ml Balance 1550 ml 1500 ml Exam Gen: awake, answers question, confused in between Neck:supple CVS:Regular rate and rtyhm Lungs:clear ext ; no edema Results Result Diagram: 04/19/17 0532 04/19/17 0532 Results 24 hrs Laboratory Tests Test 04/18/17 17:08 04/18/17 21:25 04/19/17 02:05 04/19/17 05:32 Bedside Glucose 244 H 210 204 White Blood Count 10.5 Red Blood Count 2.94 L Hemoglobin 8.9 L Hematocrit 29.6 L Mean Corpuscular Volume 100.7 Mean Corpuscular Hemoglobin 30.3 Mean Corpuscular Hemoglobin Concent 30.1 L Red Cell Distribution Width 16.2 H Platelet Count 336 # Mean Platelet Volume 10.2 Neutrophils % 66.9 Lymphocytes % 21.8 Monocytes % 7.4 Eosinophils % 2.3 Basophils % 0.3 Nucleated Red Blood Cells % 0.0 Neutrophils # (Manual) 7.0 Lymphocytes # 2.3 Monocytes # 0.8 Eosinophils # 0.2 Basophils # 0.0 Nucleated Red Blood Cells # 0.0 Sodium Level 147 H Potassium Level 5.2 H Chloride Level 104 Carbon Dioxide Level 28 Anion Gap 20 H Blood Urea Nitrogen 46 H Creatinine 3.72 H Glucose Level 219 Hemoglobin A1c 6.4 H Calcium Level 8.3 L Total Bilirubin 0.0 L Direct Bilirubin 0.00 Indirect Bilirubin 0.0 Aspartate Amino Transf (AST/SGOT) 105 H Alanine Aminotransferase (ALT/SGPT) 108 H Alkaline Phosphatase 210 H Total Protein 7.0 Albumin 3.5 Globulin 3.50 H Albumin/Globulin Ratio 1.00 Test 04/19/17 08:21 04/19/17 12:16 Bedside Glucose 269 H 100 Medications Medications Current Medications Insulin Glargine (Lantus) 15 unit HS SC Last administered on 04/18/17 21:30; Admin Dose 15 UNIT; Start 04/17/17 at 21:00 Diagnostic Test (Pha) 1 ea 1 ea 02 XX ; Start 04/17/17 at 02:00 Ceftriaxone Sodium (Rocephin) 50 ml @ 100 mls/hr Q24H IVPB Last administered on 04/19/17 02:12; Admin Dose 100 MLS/HR; Start 04/17/17 at 02:00 Miscellaneous Information 1 ea NOTE XX ; Start 04/17/17 at 03:00 Glucose (Glutose) 15 gm Q15M PRN PO DECREASED GLUCOSE; Start 04/17/17 at 03:00 Glucose (Glutose) 22.5 gm Q15M PRN PO DECREASED GLUCOSE; Start 04/17/17 at 03: 00 Dextrose (D50w Syringe) 25 ml Q15M PRN IV DECREASED GLUCOSE; Start 04/17/17 at 03:00 Dextrose (D50w Syringe) 50 ml Q15M PRN IV DECREASED GLUCOSE; Start 04/17/17 at 03:00 Glucagon (Glucagen) 1 mg Q15M PRN IM DECREASED GLUCOSE; Start 04/17/17 at 03:00 Glucose (Glutose) 15 gm Q15M PRN BUCCAL DECREASED GLUCOSE; Start 04/17/17 at 03 :00 Atorvastatin Calcium (Lipitor) 40 mg QHS PO Last administered on 04/18/17 21: 21; Admin Dose 40 MG; Start 04/17/17 at 21:00 Acetaminophen (Tylenol Tab) 325 mg Q4 PRN PO PAIN AND OR ELEVATED TEMP Last administered on 04/18/17 03:03; Admin Dose 325 MG; Start 04/17/17 at 03:30 Apixaban (Eliquis) 2.5 mg BID PO Last administered on 04/19/17 09:26; Admin Dose 2.5 MG; Start 04/17/17 at 09:00 Metoprolol Succinate (Toprol Xl) 25 mg BID PO Last administered on 04/19/17 09 :27; Admin Dose 25 MG; Start 04/17/17 at 09:00 Pantoprazole (Protonix Tab) 40 mg DAILY@06 PO Last administered on 04/19/17 06 :02; Admin Dose 40 MG; Start 04/17/17 at 06:00 Aspirin 81 mg 81 mg DAILY PO Last administered on 04/19/17 09:26; Admin Dose 81 MG; Start 04/18/17 at 09:00 Sodium Chloride (1/2 NS) 1,000 ml @ 70 mls/hr Q33G22L IV ; Start 04/19/17 at 14 :30; Status SUNITHA MANN MD Apr 19, 2017 14:08
[2017-04-19] MEDS: SOD CHLORIDE 0.45% 1,000 ML IV SCH (15:46)
--- NOTE | 2017-04-19 18:06 | PN ---
Date/Time of Note Date/Time of Note DATE: 04/19/17 TIME: 18:02 Assessment/Plan VTE Prophylaxis VTE Prophylaxis Intervention: SCD's Lines/Catheters [facility] Peripheral IV Urinary Cath still in place: No Assessment/Plan Chief Complaint/Hosp Course Patient with hyperkalemia status post Kayexalate, patient is confused currently with one-to-one sitter Assessment/Plan - Acute kidney injury related to dehydration and possible urinary tract infection. is following in nephrology consultation. - Diabetes mellitus. Metformin is held due to acute kidney injury, continue Lantus and NovoLog. - Anemia, will obtain stool for OB. Continue to monitor H&H. - Essential hypertension - History of atrial fibrillation with rapid ventricular response, continue metoprolol and Eliquis. - Hyperlipidemia, continue statin. - Dementia Recommendations based on clinical course. Plan of care discussed with Dr. Hendrickson. Problems: Exam/Review of Systems Vital Signs Vitals Vital Signs Date Time Temp Pulse Resp B/P Pulse Ox O2 Delivery O2 Flow Rate FiO2 04/19/17 14:00 98.1 74 17 141/63 91 04/19/17 13:37 2.0 04/19/17 13:36 Nasal Cannula 04/18/17 19:56 21 Intake and Output 04/18/17 04/18/17 04/19/17 15:00 23:00 07:00 Intake Total 2400 ml 1500 ml Output Total 850 ml Balance 1550 ml 1500 ml Exam Constitutional: alert Psych: confusion Head: normocephalic Neck: supple Respiratory: normal air movement Cardiovascular: nl pulses Gastrointestinal: non-tender, soft Extremities: edema Neurological: confused Results Result Diagram: 04/19/17 0532 04/19/17 0532 Results 24 hrs Laboratory Tests Test 04/18/17 21:25 04/19/17 02:05 04/19/17 05:32 04/19/17 08:21 Bedside Glucose 210 204 269 H White Blood Count 10.5 Red Blood Count 2.94 L Hemoglobin 8.9 L Hematocrit 29.6 L Mean Corpuscular Volume 100.7 Mean Corpuscular Hemoglobin 30.3 Mean Corpuscular Hemoglobin Concent 30.1 L Red Cell Distribution Width 16.2 H Platelet Count 336 # Mean Platelet Volume 10.2 Neutrophils % 66.9 Lymphocytes % 21.8 Monocytes % 7.4 Eosinophils % 2.3 Basophils % 0.3 Nucleated Red Blood Cells % 0.0 Neutrophils # (Manual) 7.0 Lymphocytes # 2.3 Monocytes # 0.8 Eosinophils # 0.2 Basophils # 0.0 Nucleated Red Blood Cells # 0.0 Sodium Level 147 H Potassium Level 5.2 H Chloride Level 104 Carbon Dioxide Level 28 Anion Gap 20 H Blood Urea Nitrogen 46 H Creatinine 3.72 H Glucose Level 219 Hemoglobin A1c 6.4 H Calcium Level 8.3 L Total Bilirubin 0.0 L Direct Bilirubin 0.00 Indirect Bilirubin 0.0 Aspartate Amino Transf (AST/SGOT) 105 H Alanine Aminotransferase (ALT/SGPT) 108 H Alkaline Phosphatase 210 H Total Protein 7.0 Albumin 3.5 Globulin 3.50 H Albumin/Globulin Ratio 1.00 Test 04/19/17 12:16 04/19/17 17:48 Bedside Glucose 100 128 Medications Medications Current Medications Insulin Glargine (Lantus) 15 unit HS SC Last administered on 04/18/17 21:30; Admin Dose 15 UNIT; Start 04/17/17 at 21:00 Diagnostic Test (Pha) 1 ea 1 ea 02 XX ; Start 04/17/17 at 02:00 Ceftriaxone Sodium (Rocephin) 50 ml @ 100 mls/hr Q24H IVPB Last administered on 04/19/17 02:12; Admin Dose 100 MLS/HR; Start 04/17/17 at 02:00 Miscellaneous Information 1 ea NOTE XX ; Start 04/17/17 at 03:00 Glucose (Glutose) 15 gm Q15M PRN PO DECREASED GLUCOSE; Start 04/17/17 at 03:00 Glucose (Glutose) 22.5 gm Q15M PRN PO DECREASED GLUCOSE; Start 04/17/17 at 03: 00 Dextrose (D50w Syringe) 25 ml Q15M PRN IV DECREASED GLUCOSE; Start 04/17/17 at 03:00 Dextrose (D50w Syringe) 50 ml Q15M PRN IV DECREASED GLUCOSE; Start 04/17/17 at 03:00 Glucagon (Glucagen) 1 mg Q15M PRN IM DECREASED GLUCOSE; Start 04/17/17 at 03:00 Glucose (Glutose) 15 gm Q15M PRN BUCCAL DECREASED GLUCOSE; Start 04/17/17 at 03 :00 Atorvastatin Calcium (Lipitor) 40 mg QHS PO Last administered on 04/18/17 21: 21; Admin Dose 40 MG; Start 04/17/17 at 21:00 Acetaminophen (Tylenol Tab) 325 mg Q4 PRN PO PAIN AND OR ELEVATED TEMP Last administered on 04/18/17 03:03; Admin Dose 325 MG; Start 04/17/17 at 03:30 Apixaban (Eliquis) 2.5 mg BID PO Last administered on 04/19/17 09:26; Admin Dose 2.5 MG; Start 04/17/17 at 09:00 Metoprolol Succinate (Toprol Xl) 25 mg BID PO Last administered on 04/19/17 09 :27; Admin Dose 25 MG; Start 04/17/17 at 09:00 Pantoprazole (Protonix Tab) 40 mg DAILY@06 PO Last administered on 04/19/17 06 :02; Admin Dose 40 MG; Start 04/17/17 at 06:00 Aspirin 81 mg 81 mg DAILY PO Last administered on 04/19/17 09:26; Admin Dose 81 MG; Start 04/18/17 at 09:00 Sodium Chloride (1/2 NS) 1,000 ml @ 70 mls/hr [id number] IV Last administered on 04/19/17 15:46; Admin Dose 70 MLS/HR; Start 04/19/17 at 14:30 SIMBA MALDONADO Apr 19, 2017 18:06
[2017-04-19 19:23] VITALS: BP 144/71; RESP 18
[2017-04-19] MEDS: INSULIN GLARGINE [LANtus] 3 ML PEN SC SCH (21:18)
[2017-04-19] MEDS: ATORVASTATIN 40 MG TAB PO SCH (21:21)
[2017-04-20] MEDS: LEVALBUTEROL (NEB) 0.63 MG/3 ML AMP INH SCH ×4 (01:05→20:00)
[2017-04-20 02:00] VITALS: BP 151/75; RESP 20
[2017-04-20] MEDS: ACCU-CHEK XX SCH (02:00)
[2017-04-20] MEDS: CEFTRIAXONE 1 GM/50 ML (PMX) 50 ML IVPB SCH (02:03)
[2017-04-20] MEDS: LEVALBUTEROL (NEB) 0.63 MG/3 ML AMP HHN PRN (05:01)
[2017-04-20 05:47] LABS: BASOPHILS % 0.3 % (0.0-2.0); EOSINOPHILS # 0.3 10^3/ul (0.0-0.5); EOSINOPHILS % 2.8 % (0.0-7.0); HEMATOCRIT 28.6 % (37.0-47.0); HEMOGLOBIN 8.4 g/dl (12.0-16.0); LYMPHOCYTES # 1.8 10^3/ul (0.8-2.9); LYMPHOCYTES % 19.3 % (15.0-51.0); MEAN CORPUSCULAR HEMOGLOBIN 29.9 pg (29.0-33.0); MEAN CORPUSCULAR HGB CONC 29.4 g/dl (32.0-37.0); MEAN CORPUSCULAR VOLUME 101.8 fl (82.0-101.0); MEAN PLATELET VOLUME 10.5 fl (7.4-10.4); MONOCYTE # 0.7 10^3/ul (0.3-0.9); NEUTROPHILS % 68.6 % (39.0-77.0); PLATELET COUNT 324 10^3/UL (140-415); RED BLOOD COUNT 2.81 10^6/ul (4.20-5.40); RED CELL DISTRIBUTION WIDTH 16.5 % (11.5-14.5); WHITE BLOOD COUNT 9.3 10^3/ul (4.8-10.8)
[2017-04-20] MEDS: PANTOPRAZOLE (EC) 40 MG TAB PO SCH (05:53)
[2017-04-20] MEDS: SOD CHLORIDE 0.45% 1,000 ML IV SCH (05:53)
[2017-04-20 06:30] LABS: CALCIUM 8.5 mg/dl (8.4-10.2); POTASSIUM 4.7 mmol/L (3.5-5.1)
[2017-04-20] MEDS: ASPIRIN (EC) 81 MG TAB PO SCH (08:20)
[2017-04-20] MEDS: APIXABAN 5 MG TABLET PO SCH ×2 (08:20→20:00)
[2017-04-20] MEDS: METOPROLOL (XL) 25 MG TAB PO SCH ×2 (08:20→20:04)
[2017-04-20] MEDS: INSULIN ASPART [NOVOLOG] 3 ML PEN SC SCH ×4 (08:24→20:06)
[2017-04-20 09:48] VITALS: BP 121/74; PULSE 96; RESP 24
--- NOTE | 2017-04-20 12:02 | PN ---
Date/Time of Note Date/Time of Note DATE: 04/20/17 TIME: 11:56 Assessment/Plan VTE Prophylaxis VTE Prophylaxis Intervention: SCD's Lines/Catheters IV Catheter Type (from [facility]): Peripheral IV Urinary Cath still in place: No Assessment/Plan Chief Complaint/Hosp Course 86 y/o with 1 Acute kidney injury likely due to due to dehydration plus meds. Renal U.S negative for hydronephrosis Improving BUN 37/Cr 3.0 today 2. Rule out drug induced acute renal failure in the form of ARB with the patient on metformin. 3 Mild hyperkalemia 4 Hypernatremia 146 today 5 Diabetes mellitus. 6 Chronic kidney disease. 7 History of gastritis. 8. Anemia. 9 History of congestive heart failure. 10 dementia 11 UTI + ucx +staph Recs - Hold fluids - Chest xray to eval pul edema - Kayexalate for hyperkalemia - Strict I/O; spoke to nurse - Renal diet - avoid all nephrotoxic agents - Hold baclofen, diovan, metformin - Renally dose all meds Problems: Subjective 24 Hr Interval Summary Free Text/Dictation SOB noted on ambulation Exam/Review of Systems Vital Signs Vitals Vital Signs Date Time Temp Pulse Resp B/P Pulse Ox O2 Delivery O2 Flow Rate FiO2 04/20/17 09:48 98.2 96 24 121/74 96 Nasal Cannula 2.0 04/18/17 19:56 21 Intake and Output 04/19/17 04/19/17 04/20/17 15:00 23:00 07:00 Intake Total 1330 ml 1680 ml Output Total 500 ml 850 ml Balance 830 ml 830 ml Exam Gen:Awake,alert Neck :supple Lungs: crackles left lung base and few rt base CVS:RRR Ext : no edema Constitutional: alert, distress, frail, non-verbal, obese, oriented, other, well developed Psych: nl mood/affect, no complaints, No anxiety, No confusion, No depression, No other, No suicidal Head: atraumatic, normocephalic Eyes: EOMI, PERRL, nl conjunctiva, nl lids, nl sclera ENMT: nl external ears & nose, nl lips & teeth, nl nasal mucosa & septum Neck: non-tender, supple Respiratory: clear to auscultation, normal air movement Cardiovascular: nl pulses, regular rate and rhythm Gastrointestinal: nl liver, spleen, non-tender, soft Musculoskeletal: nl extremities to inspection, nl gait and stance Extremities: normal pulses Neurological: DAMAGE ASSESSOR II-XII intact, nl mental status, nl speech, nl strength Skin: nl turgor, No rash or lesions Lymph: nl lymph nodes Results Result Diagram: 04/20/17 0427 04/20/17 0427 Results 24 hrs Laboratory Tests Test 04/19/17 12:16 04/19/17 17:48 04/19/17 21:16 04/20/17 02:07 Bedside Glucose 100 128 191 182 Test 04/20/17 04:27 04/20/17 08:12 04/20/17 11:41 White Blood Count 9.3 Red Blood Count 2.81 L Hemoglobin 8.4 L Hematocrit 28.6 L Mean Corpuscular Volume 101.8 H Mean Corpuscular Hemoglobin 29.9 Mean Corpuscular Hemoglobin Concent 29.4 L Red Cell Distribution Width 16.5 H Platelet Count 324 Mean Platelet Volume 10.5 H Neutrophils % 68.6 Lymphocytes % 19.3 Monocytes % 8.0 Eosinophils % 2.8 Basophils % 0.3 Nucleated Red Blood Cells % 0.0 Neutrophils # (Manual) 6.4 Lymphocytes # 1.8 Monocytes # 0.7 Eosinophils # 0.3 Basophils # 0.0 Nucleated Red Blood Cells # 0.0 Sodium Level 146 H Potassium Level 4.7 Chloride Level 103 Carbon Dioxide Level 29 Anion Gap 19 H Blood Urea Nitrogen 37 H Creatinine 3.00 H Glucose Level 141 # Calcium Level 8.5 Bedside Glucose 168 132 Medications Medications Current Medications Insulin Glargine (Lantus) 15 unit HS SC Last administered on 04/19/17 21:18; Admin Dose 15 UNIT; Start 04/17/17 at 21:00 Diagnostic Test (Pha) 1 ea 1 ea 02 XX ; Start 04/17/17 at 02:00 Ceftriaxone Sodium (Rocephin) 50 ml @ 100 mls/hr Q24H IVPB Last administered on 04/20/17 02:03; Admin Dose 100 MLS/HR; Start 04/17/17 at 02:00 Miscellaneous Information 1 ea NOTE XX ; Start 04/17/17 at 03:00 Glucose (Glutose) 15 gm Q15M PRN PO DECREASED GLUCOSE; Start 04/17/17 at 03:00 Glucose (Glutose) 22.5 gm Q15M PRN PO DECREASED GLUCOSE; Start 04/17/17 at 03: 00 Dextrose (D50w Syringe) 25 ml Q15M PRN IV DECREASED GLUCOSE; Start 04/17/17 at 03:00 Dextrose (D50w Syringe) 50 ml Q15M PRN IV DECREASED GLUCOSE; Start 04/17/17 at 03:00 Glucagon (Glucagen) 1 mg Q15M PRN IM DECREASED GLUCOSE; Start 04/17/17 at 03:00 Glucose (Glutose) 15 gm Q15M PRN BUCCAL DECREASED GLUCOSE; Start 04/17/17 at 03 :00 Atorvastatin Calcium (Lipitor) 40 mg QHS PO Last administered on 04/19/17 21: 21; Admin Dose 40 MG; Start 04/17/17 at 21:00 Acetaminophen (Tylenol Tab) 325 mg Q4 PRN PO PAIN AND OR ELEVATED TEMP Last administered on 04/18/17 03:03; Admin Dose 325 MG; Start 04/17/17 at 03:30 Apixaban (Eliquis) 2.5 mg BID PO Last administered on 04/20/17 08:20; Admin Dose 2.5 MG; Start 04/17/17 at 09:00 Metoprolol Succinate (Toprol Xl) 25 mg BID PO Last administered on 04/20/17 08 :20; Admin Dose 25 MG; Start 04/17/17 at 09:00 Pantoprazole (Protonix Tab) 40 mg DAILY@06 PO Last administered on 04/20/17 05 :53; Admin Dose 40 MG; Start 04/17/17 at 06:00 Aspirin (Halfprin) 81 mg DAILY PO Last administered on 04/20/17 08:20; Admin Dose 81 MG; Start 04/18/17 at 09:00 SUNITHA JOINER MD Apr 20, 2017 12:02
--- NOTE | 2017-04-20 13:35 | RADRPT ---
PROCEDURE: XR Chest. CLINICAL INDICATION: Shortness of breath. TECHNIQUE: Single frontal view. COMPARISON: 04/16/2017. FINDINGS: There is mild atelectasis at the lung bases. The lungs are otherwise clear. The heart size is normal. There is calcification in the aorta consistent with atherosclerosis. There is no pleural effusion. There is no pneumothorax. IMPRESSION: 1. Mild atelectasis at the lung bases. 2. Atherosclerosis. RPTAT: QQ .Flako Olvera MD, MD Date Time Electronically viewed and signed by .Flako Olvera MD, MD on 04/20/2017 13:34 .R/
[2017-04-20 14:00] VITALS: BP 145/70; PULSE 80; RESP 20
--- NOTE | 2017-04-20 18:13 | PN ---
Date/Time of Note Date/Time of Note DATE: 04/20/17 TIME: 18:10 Assessment/Plan VTE Prophylaxis VTE Prophylaxis Intervention: SCD's Lines/Catheters [facility] Peripheral IV Urinary Cath still in place: No Assessment/Plan Chief Complaint/Hosp Course Patient is confused however appears comfortable, continue one-to-one sitter. Blood sugar is better controlled, increase Lantus. Assessment/Plan - Acute kidney injury related to dehydration and possible urinary tract infection. is following in nephrology consultation. - Diabetes mellitus. Metformin is held due to acute kidney injury, continue Lantus and NovoLog. - Anemia, will obtain stool for OB. Continue to monitor H&H. - Essential hypertension - History of atrial fibrillation with rapid ventricular response, continue metoprolol and Eliquis. - Hyperlipidemia, continue statin. - Dementia Recommendations based on clinical course. Plan of care discussed with Dr. Hendrickson. Problems: Exam/Review of Systems Vital Signs Vitals Vital Signs Date Time Temp Pulse Resp B/P Pulse Ox O2 Delivery O2 Flow Rate FiO2 04/20/17 17:25 Nasal Cannula 2.0 04/20/17 14:00 98.5 80 20 145/70 100 04/18/17 19:56 21 Intake and Output 04/19/17 04/19/17 04/20/17 15:00 23:00 07:00 Intake Total 1330 ml 1680 ml Output Total 500 ml 850 ml Balance 830 ml 830 ml Exam Constitutional: alert Psych: confusion Head: normocephalic Neck: supple Respiratory: normal air movement Cardiovascular: nl pulses Gastrointestinal: non-tender, soft Extremities: edema Neurological: confused Results Result Diagram: 04/20/17 0427 04/20/17 0427 Results 24 hrs Laboratory Tests Test 04/19/17 21:16 04/20/17 02:07 04/20/17 04:27 04/20/17 08:12 Bedside Glucose 191 182 168 White Blood Count 9.3 Red Blood Count 2.81 L Hemoglobin 8.4 L Hematocrit 28.6 L Mean Corpuscular Volume 101.8 H Mean Corpuscular Hemoglobin 29.9 Mean Corpuscular Hemoglobin Concent 29.4 L Red Cell Distribution Width 16.5 H Platelet Count 324 Mean Platelet Volume 10.5 H Neutrophils % 68.6 Lymphocytes % 19.3 Monocytes % 8.0 Eosinophils % 2.8 Basophils % 0.3 Nucleated Red Blood Cells % 0.0 Neutrophils # (Manual) 6.4 Lymphocytes # 1.8 Monocytes # 0.7 Eosinophils # 0.3 Basophils # 0.0 Nucleated Red Blood Cells # 0.0 Sodium Level 146 H Potassium Level 4.7 Chloride Level 103 Carbon Dioxide Level 29 Anion Gap 19 H Blood Urea Nitrogen 37 H Creatinine 3.00 H Glucose Level 141 # Calcium Level 8.5 Test 04/20/17 11:41 04/20/17 17:21 Bedside Glucose 132 208 Medications Medications Current Medications Insulin Glargine (Lantus) 15 unit HS SC Last administered on 04/19/17 21:18; Admin Dose 15 UNIT; Start 04/17/17 at 21:00 Diagnostic Test (Pha) (Accu-Chek) 1 ea 02 XX ; Start 04/17/17 at 02:00 Miscellaneous Information 1 ea NOTE XX ; Start 04/17/17 at 03:00 Glucose (Glutose) 15 gm Q15M PRN PO DECREASED GLUCOSE; Start 04/17/17 at 03:00 Glucose (Glutose) 22.5 gm Q15M PRN PO DECREASED GLUCOSE; Start 04/17/17 at 03: 00 Dextrose (D50w Syringe) 25 ml Q15M PRN IV DECREASED GLUCOSE; Start 04/17/17 at 03:00 Dextrose (D50w Syringe) 50 ml Q15M PRN IV DECREASED GLUCOSE; Start 04/17/17 at 03:00 Glucagon (Glucagen) 1 mg Q15M PRN IM DECREASED GLUCOSE; Start 04/17/17 at 03:00 Glucose (Glutose) 15 gm Q15M PRN BUCCAL DECREASED GLUCOSE; Start 04/17/17 at 03 :00 Atorvastatin Calcium (Lipitor) 40 mg QHS PO Last administered on 04/19/17 21: 21; Admin Dose 40 MG; Start 04/17/17 at 21:00 Acetaminophen (Tylenol Tab) 325 mg Q4 PRN PO PAIN AND OR ELEVATED TEMP Last administered on 04/18/17 03:03; Admin Dose 325 MG; Start 04/17/17 at 03:30 Apixaban (Eliquis) 2.5 mg BID PO Last administered on 04/20/17 08:20; Admin Dose 2.5 MG; Start 04/17/17 at 09:00 Metoprolol Succinate (Toprol Xl) 25 mg BID PO Last administered on 04/20/17 08 :20; Admin Dose 25 MG; Start 04/17/17 at 09:00 Pantoprazole (Protonix Tab) 40 mg DAILY@06 PO Last administered on 04/20/17 05 :53; Admin Dose 40 MG; Start 04/17/17 at 06:00 Aspirin (Halfprin) 81 mg DAILY PO Last administered on 04/20/17 08:20; Admin Dose 81 MG; Start 04/18/17 at 09:00 SIMBA MALDONADO Apr 20, 2017 18:13
[2017-04-20 19:45] VITALS: BP 144/57; RESP 19
[2017-04-20] MEDS: ATORVASTATIN 40 MG TAB PO SCH (20:04)
[2017-04-20] MEDS: INSULIN GLARGINE [LANtus] 3 ML PEN SC SCH (20:06)
[2017-04-20 21:12] VITALS: BP 131/58; RESP 19
[2017-04-21] MEDS: LEVALBUTEROL (NEB) 0.63 MG/3 ML AMP INH SCH ×4 (01:40→19:41)
[2017-04-21] MEDS: ACCU-CHEK XX SCH (01:46)
[2017-04-21 02:00] VITALS: BP 130/56; RESP 19
--- NOTE | 2017-04-21 03:30 | PN ---
DATE: 11/18/2016 SUBJECTIVE DATA: No acute changes. The patient is sleeping. No fevers. No events overnight per report. LABORATORY AND DIAGNOSTIC DATA: WBC today 9.3, H and H 8.4 and 28.6, platelets 324, no shift, no bands. BUN 37, creatinine 3.0. Chest x-ray this morning revealed mild atelectasis at the lung bases. No pneumothorax. No pleural effusion. OBJECTIVE DATA: GENERAL: Fragile, elderly woman in no distress. HEENT: Head atraumatic, normocephalic. Sclerae anicteric. Buccal mucosa dry. NECK: Supple. RESPIRATORY: Chest rise symmetrical. Breath sounds diminished at the bases. HEART: S1, S2. ABDOMEN: Soft, bowel sounds present. EXTREMITIES: Without cyanosis. ASSESSMENT: 1. Resolving encephalopathy. 2. Acute renal failure. 3. Dementia. 4. Diabetes. 5. Chronic kidney disease. 6. History of congestive heart failure. PLAN: The patient is on Rocephin, which we are going to discontinue. She is being followed by Nephrology. Continue present care. Repeat cultures p.r.n. Dictated By: Jayme Horton NP /maurilio/ace /Document#: [id number]
[2017-04-21] MEDS: PANTOPRAZOLE (EC) 40 MG TAB PO SCH (05:46)
[2017-04-21 07:36] VITALS: BP 131/76; RESP 22
[2017-04-21] MEDS: INSULIN ASPART [NOVOLOG] 3 ML PEN SC SCH ×4 (08:00→20:45)
[2017-04-21] MEDS: APIXABAN 5 MG TABLET PO SCH ×2 (08:27→20:45)
[2017-04-21] MEDS: METOPROLOL (XL) 25 MG TAB PO SCH ×2 (08:27→20:44)
[2017-04-21] MEDS: ASPIRIN (EC) 81 MG TAB PO SCH (08:27)
--- NOTE | 2017-04-21 10:27 | CONS ---
Date/Time of Note Date/Time of Note DATE: 04/21/17 TIME: 10:27 Assessment/Plan Assessment/Plan Chief Complaint/Hosp Course 86 y/o with 1 Acute kidney injury likely due to due to dehydration plus meds. Renal U.S negative for hydronephrosis Improving. Fluids held yest for possible volume overload, however pt is clinically better today and chest xary essentially negative 2. Rule out drug induced acute renal failure in the form of ARB with the patient on metformin. 3 Mild hyperkalemia 4 Hypernatremia 146 today 5 Diabetes mellitus. 6 Chronic kidney disease. 7 History of gastritis. 8. Anemia. 9 History of congestive heart failure. 10 dementia 11 UTI + ucx +staph Recs - start 1/2 NS at 50 cc/hr> total 1 L - Kayexalate for hyperkalemia - Strict I/O; spoke to nurse - Renal diet - avoid all nephrotoxic agents - Hold baclofen, diovan, metformin - Renally dose all meds Problems: Consultation Date/Type/Reason Admit Date/Time Apr 17, 2017 at 00:30 Initial Consult Date 04/17/17 Type of Consultation: Nephrology 24 HR Interval Summary Free Text/Dictation Fluids were held yest Exam/Review of Systems Vital Signs Vitals Vital Signs Date Time Temp Pulse Resp B/P Pulse Ox O2 Delivery O2 Flow Rate FiO2 04/21/17 08:58 80 20 95 Nasal Cannula 2.0 28 04/21/17 07:36 98.1 131/76 Intake and Output 04/20/17 04/20/17 04/21/17 15:00 23:00 07:00 Intake Total 490 ml 960 ml 520 ml Output Total 495 ml Balance 490 ml 465 ml 520 ml Exam Gen:awake,alert Neck:supple Lungs:clear Abdomen:soft, non tender Ext no edema Results Result Diagram: 04/20/177 04/20/17426 Results 24 hrs Laboratory Tests Test 04/20/17 11:41 04/20/17 17:21 04/20/17 19:59 04/21/17 01:38 Bedside Glucose 132 208 191 135 Test 04/21/17 07:53 Bedside Glucose 73 Medications Medications Current Medications Diagnostic Test (Pha) (Accu-Chek) 1 ea 02 XX Last administered on 04/21/17t 01: 46; Admin Dose 1 EA; Start 04/17/17 at 02:00 Miscellaneous Information 1 ea NOTE XX ; Start 04/17/17 at 03:00 Glucose (Glutose) 15 gm Q15M PRN PO DECREASED GLUCOSE; Start 04/17/17 at 03:00 Glucose (Glutose) 22.5 gm Q15M PRN PO DECREASED GLUCOSE; Start 04/17/17 at 03: 00 Dextrose (D50w Syringe) 25 ml Q15M PRN IV DECREASED GLUCOSE; Start 04/17/17 at 03:00 Dextrose (D50w Syringe) 50 ml Q15M PRN IV DECREASED GLUCOSE; Start 04/17/17 at 03:00 Glucagon (Glucagen) 1 mg Q15M PRN IM DECREASED GLUCOSE; Start 04/17/17 at 03:00 Glucose (Glutose) 15 gm Q15M PRN BUCCAL DECREASED GLUCOSE; Start 04/17/17 at 03 :00 Atorvastatin Calcium (Lipitor) 40 mg QHS PO Last administered on 04/20/17 20: 04; Admin Dose 40 MG; Start 04/17/17 at 21:00 Acetaminophen (Tylenol Tab) 325 mg Q4 PRN PO PAIN AND OR ELEVATED TEMP Last administered on 04/18/17 03:03; Admin Dose 325 MG; Start 04/17/17 at 03:30 Apixaban (Eliquis) 2.5 mg BID PO Last administered on 04/21/17 08:27; Admin Dose 2.5 MG; Start 04/17/17 at 09:00 Metoprolol Succinate (Toprol Xl) 25 mg BID PO Last administered on 04/21/17 08 :27; Admin Dose 25 MG; Start 04/17/17 at 09:00 Pantoprazole (Protonix Tab) 40 mg DAILY@06 PO Last administered on 04/21/17 05 :46; Admin Dose 40 MG; Start 04/17/17 at 06:00 Aspirin (Halfprin) 81 mg DAILY PO Last administered on 04/21/17 08:27; Admin Dose 81 MG; Start 04/18/17 at 09:00 Insulin Glargine (Lantus) 18 unit HS SC Last administered on 04/20/17 20:06; Admin Dose 18 UNIT; Start 04/20/17 at 21:00 SUNITHA JOINER MD Apr 21, 2017 10:27
--- NOTE | 2017-04-21 12:17 | PN ---
Date/Time of Note Date/Time of Note DATE: 04/21/17 TIME: 12:14 Assessment/Plan VTE Prophylaxis VTE Prophylaxis Intervention: other Lines/Catheters [facility] ([facility] [place] Urinary Cath still in place: No Assessment/Plan Assessment/Plan - Acute kidney injury related to dehydration and possible urinary tract infection. is following in nephrology consultation. -Encephalopathy- resolving - per ID - Diabetes mellitus. Metformin is held due to acute kidney injury, continue Lantus and NovoLog. - Anemia, will obtain stool for OB. Continue to monitor H&H. - Essential hypertension - History of atrial fibrillation with rapid ventricular response, continue metoprolol and Eliquis. - Hyperlipidemia, continue statin. - Dementia Recommendations based on clinical course. Plan of care discussed with Dr. Hendrickson. Subjective 24 Hr Interval Summary Free Text/Dictation Up in chair, confused, afebrile. dw staff Constitutional: requiring O2 Respiratory: no complaints Cardiovascular: no complaints Gastrointestinal: no complaints Genitourinary: no complaints Musculoskeletal: no complaints Exam/Review of Systems Vital Signs Vitals Vital Signs Date Time Temp Pulse Resp B/P Pulse Ox O2 Delivery O2 Flow Rate FiO2 04/21/17 08:58 80 20 95 Nasal Cannula 2.0 28 04/21/17 07:36 98.1 131/76 Intake and Output 04/20/17 04/20/17 04/21/17 15:00 23:00 07:00 Intake Total 490 ml 960 ml 520 ml Output Total 495 ml Balance 490 ml 465 ml 520 ml Exam Constitutional: alert, well developed Respiratory: clear to auscultation, normal air movement Cardiovascular: nl pulses, regular rate and rhythm Gastrointestinal: non-tender, soft Neurological: confused, nl speech Results Result Diagram: 04/20/177 04/20/17426 Results 24 hrs Laboratory Tests Test 04/20/17 17:21 04/20/17 19:59 04/21/17 01:38 04/21/17 07:53 Bedside Glucose 208 191 135 73 Medications Medications Current Medications Diagnostic Test (Pha) (Accu-Chek) 1 ea 02 XX Last administered on 04/21/17t 01: 46; Admin Dose 1 EA; Start 04/17/17 at 02:00 Miscellaneous Information 1 ea NOTE XX ; Start 04/17/17 at 03:00 Glucose (Glutose) 15 gm Q15M PRN PO DECREASED GLUCOSE; Start 04/17/17 at 03:00 Glucose (Glutose) 22.5 gm Q15M PRN PO DECREASED GLUCOSE; Start 04/17/17 at 03: 00 Dextrose (D50w Syringe) 25 ml Q15M PRN IV DECREASED GLUCOSE; Start 04/17/17 at 03:00 Dextrose (D50w Syringe) 50 ml Q15M PRN IV DECREASED GLUCOSE; Start 04/17/17 at 03:00 Glucagon (Glucagen) 1 mg Q15M PRN IM DECREASED GLUCOSE; Start 04/17/17 at 03:00 Glucose (Glutose) 15 gm Q15M PRN BUCCAL DECREASED GLUCOSE; Start 04/17/17 at 03 :00 Atorvastatin Calcium (Lipitor) 40 mg QHS PO Last administered on 04/20/17 20: 04; Admin Dose 40 MG; Start 04/17/17 at 21:00 Acetaminophen (Tylenol Tab) 325 mg Q4 PRN PO PAIN AND OR ELEVATED TEMP Last administered on 04/18/17 03:03; Admin Dose 325 MG; Start 04/17/17 at 03:30 Apixaban (Eliquis) 2.5 mg BID PO Last administered on 04/21/17 08:27; Admin Dose 2.5 MG; Start 04/17/17 at 09:00 Metoprolol Succinate (Toprol Xl) 25 mg BID PO Last administered on 04/21/17 08 :27; Admin Dose 25 MG; Start 04/17/17 at 09:00 Pantoprazole (Protonix Tab) 40 mg DAILY@06 PO Last administered on 04/21/17 05 :46; Admin Dose 40 MG; Start 04/17/17 at 06:00 Aspirin (Halfprin) 81 mg DAILY PO Last administered on 04/21/17 08:27; Admin Dose 81 MG; Start 04/18/17 at 09:00 Insulin Glargine (Lantus) 18 unit HS SC Last administered on 04/20/17 20:06; Admin Dose 18 UNIT; Start 04/20/17 at 21:00 KELLY MEYER Apr 21, 2017 12:17
[2017-04-21 14:00] VITALS: BP 132/78; RESP 22
--- NOTE | 2017-04-21 15:02 | CONS ---
Date/Time of Note Date/Time of Note DATE: 04/21/17 TIME: 15:01 Assessment/Plan Assessment/Plan Chief Complaint/Hosp Course SUBJECTIVE DATA: No acute changes. Awake, comfortable on 2 L nc, no fevers OBJECTIVE DATA: GENERAL: Fragile, elderly woman in no distress. HEENT: Head atraumatic, normocephalic. Sclerae anicteric. Buccal mucosa dry. NECK: Supple. RESPIRATORY: Chest rise symmetrical. Breath sounds diminished at the bases. HEART: S1, S2. ABDOMEN: Soft, bowel sounds present. EXTREMITIES: Without cyanosis. ASSESSMENT: 1. Resolving encephalopathy. 2. Acute renal failure. 3. Dementia. 4. Diabetes. 5. Chronic kidney disease. 6. History of congestive heart failure. PLAN: Remains stable, off abx, will repeat cx prn, nephrology rec-s [facility] staff Problems: Consultation Date/Type/Reason Admit Date/Time Apr 17, 2017 at 00:30 Initial Consult Date 04/17/17 Type of Consultation: ID Exam/Review of Systems Vital Signs Vitals Vital Signs Date Time Temp Pulse Resp B/P Pulse Ox O2 Delivery O2 Flow Rate FiO2 04/21/17 08:58 80 20 95 Nasal Cannula 2.0 28 04/21/17 07:36 98.1 131/76 Intake and Output 04/20/17 04/20/17 04/21/17 14:59 22:59 06:59 Intake Total 490 ml 960 ml 520 ml Output Total 495 ml Balance 490 ml 465 ml 520 ml Results Result Diagram: 04/20/17 0427 04/20/17 0427 Results 24 hrs Laboratory Tests Test 04/20/17 17:21 04/20/17 19:59 04/21/17 01:38 04/21/17 07:53 Bedside Glucose 208 191 135 73 Test 04/21/17 12:15 Bedside Glucose 104 Medications Medications Current Medications Diagnostic Test (Pha) (Accu-Chek) 1 ea 02 XX Last administered on 04/21/17t 01: 46; Admin Dose 1 EA; Start 04/17/17 at 02:00 Miscellaneous Information 1 ea NOTE XX ; Start 04/17/17 at 03:00 Glucose (Glutose) 15 gm Q15M PRN PO DECREASED GLUCOSE; Start 04/17/17 at 03:00 Glucose (Glutose) 22.5 gm Q15M PRN PO DECREASED GLUCOSE; Start 04/17/17 at 03: 00 Dextrose (D50w Syringe) 25 ml Q15M PRN IV DECREASED GLUCOSE; Start 04/17/17 at 03:00 Dextrose (D50w Syringe) 50 ml Q15M PRN IV DECREASED GLUCOSE; Start 04/17/17 at 03:00 Glucagon (Glucagen) 1 mg Q15M PRN IM DECREASED GLUCOSE; Start 04/17/17 at 03:00 Glucose (Glutose) 15 gm Q15M PRN BUCCAL DECREASED GLUCOSE; Start 04/17/17 at 03 :00 Atorvastatin Calcium (Lipitor) 40 mg QHS PO Last administered on 04/20/17 20: 04; Admin Dose 40 MG; Start 04/17/17 at 21:00 Acetaminophen (Tylenol Tab) 325 mg Q4 PRN PO PAIN AND OR ELEVATED TEMP Last administered on 04/18/17 03:03; Admin Dose 325 MG; Start 04/17/17 at 03:30 Apixaban (Eliquis) 2.5 mg BID PO Last administered on 04/21/17 08:27; Admin Dose 2.5 MG; Start 04/17/17 at 09:00 Metoprolol Succinate (Toprol Xl) 25 mg BID PO Last administered on 04/21/17 08 :27; Admin Dose 25 MG; Start 04/17/17 at 09:00 Pantoprazole (Protonix Tab) 40 mg DAILY@06 PO Last administered on 04/21/17 05 :46; Admin Dose 40 MG; Start 04/17/17 at 06:00 Aspirin (Halfprin) 81 mg DAILY PO Last administered on 04/21/17 08:27; Admin Dose 81 MG; Start 04/18/17 at 09:00 Insulin Glargine (Lantus) 18 unit HS SC Last administered on 04/20/17 20:06; Admin Dose 18 UNIT; Start 04/20/17 at 21:00 HAO CUTLER NP Apr 21, 2017 15:02
[2017-04-21] MEDS: SOD CHLORIDE 0.45% 1,000 ML IV SCH (17:35)
[2017-04-21 20:04] VITALS: BP 134/60; RESP 18
[2017-04-21] MEDS: INSULIN GLARGINE [LANtus] 3 ML PEN SC SCH (20:45)
[2017-04-21] MEDS: ATORVASTATIN 40 MG TAB PO SCH (20:45)
[2017-04-22] MEDS: ACETAMINOPHEN 325 MG TAB PO PRN (01:08)
[2017-04-22] MEDS: LEVALBUTEROL (NEB) 0.63 MG/3 ML AMP INH SCH ×4 (01:11→20:58)
[2017-04-22] MEDS: ACCU-CHEK XX SCH (01:37)
[2017-04-22 02:28] VITALS: BP 133/58; RESP 18
[2017-04-22] MEDS: PANTOPRAZOLE (EC) 40 MG TAB PO SCH (06:34)
[2017-04-22] MEDS: INSULIN ASPART [NOVOLOG] 3 ML PEN SC SCH ×4 (07:58→21:31)
[2017-04-22] MEDS: APIXABAN 5 MG TABLET PO SCH ×2 (08:00→21:21)
[2017-04-22] MEDS: ASPIRIN (EC) 81 MG TAB PO SCH (08:00)
[2017-04-22] MEDS: METOPROLOL (XL) 25 MG TAB PO SCH ×2 (08:01→21:21)
[2017-04-22 09:00] VITALS: BP 144/65; PULSE 78; RESP 22
[2017-04-22 10:51] LABS: BASOPHILS % 0.4 % (0.0-2.0); EOSINOPHILS # 0.3 10^3/ul (0.0-0.5); EOSINOPHILS % 3.4 % (0.0-7.0); HEMATOCRIT 27.8 % (37.0-47.0); HEMOGLOBIN 8.3 g/dl (12.0-16.0); LYMPHOCYTES # 1.8 10^3/ul (0.8-2.9); LYMPHOCYTES % 24.1 % (15.0-51.0); MEAN CORPUSCULAR HEMOGLOBIN 30.4 pg (29.0-33.0); MEAN CORPUSCULAR HGB CONC 29.9 g/dl (32.0-37.0); MEAN CORPUSCULAR VOLUME 101.8 fl (82.0-101.0); MEAN PLATELET VOLUME 10.2 fl (7.4-10.4); MONOCYTE # 0.6 10^3/ul (0.3-0.9); MONOCYTES % 8.6 % (0.0-11.0); NEUTROPHILS % 62.8 % (39.0-77.0); PLATELET COUNT 331 10^3/UL (140-415); RED BLOOD COUNT 2.73 10^6/ul (4.20-5.40); WHITE BLOOD COUNT 7.3 10^3/ul (4.8-10.8)
[2017-04-22 11:09] LABS: CALCIUM 8.3 mg/dl (8.4-10.2); CREATININE 2.23 mg/dl (0.44-1.00); POTASSIUM 3.9 mmol/L (3.5-5.1)
[2017-04-22] MEDS: SOD CHLORIDE 0.45% 1,000 ML IV SCH ×2 (11:57→18:50)
--- NOTE | 2017-04-22 12:52 | CONS ---
Date/Time of Note Date/Time of Note DATE: 04/22/17 TIME: 12:51 Assessment/Plan Assessment/Plan Chief Complaint/Hosp Course SUBJECTIVE DATA: No acute changes. Awake, eating lunch, comfortable on 2 L nc , no fevers OBJECTIVE DATA: GENERAL: Fragile, elderly woman in no distress. HEENT: Head atraumatic, normocephalic. Sclerae anicteric. Buccal mucosa dry. NECK: Supple. RESPIRATORY: Chest rise symmetrical. Breath sounds diminished at the bases. HEART: S1, S2. ABDOMEN: Soft, bowel sounds present. EXTREMITIES: Without cyanosis. ASSESSMENT: 1. Resolving encephalopathy. 2. Acute renal failure. 3. Dementia. 4. Diabetes. 5. Chronic kidney disease. 6. History of congestive heart failure. PLAN: Clinically unchanged, will repeat cxr, observe off abx, f/u nephrology rec-s staff Problems: Consultation Date/Type/Reason Admit Date/Time Apr 17, 2017 at 00:30 Initial Consult Date 04/17/17 Type of Consultation: ID Exam/Review of Systems Vital Signs Vitals Vital Signs Date Time Temp Pulse Resp B/P Pulse Ox O2 Delivery O2 Flow Rate FiO2 04/22/17 09:00 97.7 78 22 144/65 95 Nasal Cannula 2.0 04/22/17 01:18 28 Intake and Output 04/21/17 04/21/17 04/22/17 14:59 22:59 06:59 Intake Total 1300 ml 900 ml Output Total 1200 ml 950 ml Balance 100 ml -50 ml Results Result Diagram: 04/22/17 1010 04/22/17 1010 Results 24 hrs Laboratory Tests Test 04/21/17 17:25 04/21/17 20:42 04/22/17 01:33 04/22/17 07:49 Bedside Glucose 225 H 281 H 149 146 Test 04/22/17 10:10 04/22/17 11:51 White Blood Count 7.3 # Red Blood Count 2.73 L Hemoglobin 8.3 L Hematocrit 27.8 L Mean Corpuscular Volume 101.8 H Mean Corpuscular Hemoglobin 30.4 Mean Corpuscular Hemoglobin Concent 29.9 L Red Cell Distribution Width 16.0 H Platelet Count 331 Mean Platelet Volume 10.2 Neutrophils % 62.8 Lymphocytes % 24.1 Monocytes % 8.6 Eosinophils % 3.4 Basophils % 0.4 Nucleated Red Blood Cells % 0.0 Neutrophils # (Manual) 4.6 Lymphocytes # 1.8 Monocytes # 0.6 Eosinophils # 0.3 Basophils # 0.0 Nucleated Red Blood Cells # 0.0 Sodium Level 144 Potassium Level 3.9 Chloride Level 107 Carbon Dioxide Level 29 Anion Gap 12 Blood Urea Nitrogen 30 H Creatinine 2.23 H Glucose Level 123 Calcium Level 8.3 L Bedside Glucose 227 H Medications Medications Current Medications Diagnostic Test (Pha) (Accu-Chek) 1 ea 02 XX Last administered on 04/21/17 01: 46; Admin Dose 1 EA; Start 04/17/17 at 02:00 Miscellaneous Information 1 ea NOTE XX ; Start 04/17/17 at 03:00 Glucose (Glutose) 15 gm Q15M PRN PO DECREASED GLUCOSE; Start 04/17/17 at 03:00 Glucose (Glutose) 22.5 gm Q15M PRN PO DECREASED GLUCOSE; Start 04/17/17 at 03: 00 Dextrose (D50w Syringe) 25 ml Q15M PRN IV DECREASED GLUCOSE; Start 04/17/17 at 03:00 Dextrose (D50w Syringe) 50 ml Q15M PRN IV DECREASED GLUCOSE; Start 04/17/17 at 03:00 Glucagon (Glucagen) 1 mg Q15M PRN IM DECREASED GLUCOSE; Start 04/17/17 at 03:00 Glucose (Glutose) 15 gm Q15M PRN BUCCAL DECREASED GLUCOSE; Start 04/17/17 at 03 :00 Atorvastatin Calcium (Lipitor) 40 mg QHS PO Last administered on 04/21/17 20: 45; Admin Dose 40 MG; Start 04/17/17 at 21:00 Acetaminophen (Tylenol Tab) 325 mg Q4 PRN PO PAIN AND OR ELEVATED TEMP Last administered on 04/22/17 01:08; Admin Dose 325 MG; Start 04/17/17 at 03:30 Apixaban (Eliquis) 2.5 mg BID PO Last administered on 04/22/17 08:00; Admin Dose 2.5 MG; Start 04/17/17 at 09:00 Metoprolol Succinate (Toprol Xl) 25 mg BID PO Last administered on 04/22/17 08: 01; Admin Dose 25 MG; Start 04/17/17 at 09:00 Pantoprazole (Protonix Tab) 40 mg DAILY@06 PO Last administered on 04/22/17 06: 34; Admin Dose 40 MG; Start 04/17/17 at 06:00 Aspirin (Halfprin) 81 mg DAILY PO Last administered on 04/22/17 08:00; Admin Dose 81 MG; Start 04/18/17 at 09:00 Insulin Glargine 18 unit 18 unit HS SC Last administered on 04/21/17 20:45; Admin Dose 18 UNIT; Start 04/20/17 at 21:00 Sodium Chloride (1/2 NS) 1,000 ml @ 50 mls/hr Q20H IV Last administered on 17:35; Admin Dose 50 MLS/HR; Start 04/21/17 at 17:00 HAO CUTLER NP Apr 22, 2017 12:52
[2017-04-22 14:00] VITALS: BP 124/49; PULSE 74; RESP 20
--- NOTE | 2017-04-22 14:55 | RADRPT ---
PROCEDURE: XR Chest. CLINICAL INDICATION: Shortness of breath. TECHNIQUE: Single frontal view. COMPARISON: 04/20/2017. FINDINGS: Interstitial opacities are again seen in the bilateral lower lobes, not significantly changed. The heart size is normal. There is calcification in the aorta consistent with atherosclerosis. There i s no pleural effusion. There is no pneumothorax. IMPRESSION: 1. Bilateral lower lobe interstitial opacities, not significantly changed. May represent infiltrat e or atelectatic change. 2. Aortic atherosclerosis. RPTAT: JJ .Chucky Stokes MD, MD Date Time Electronically viewed and signed by .Chucky Stokes MD, MD on 04/22/2017 14:55 .A/
--- NOTE | 2017-04-22 15:18 | CONS ---
Date/Time of Note Date/Time of Note DATE: 04/22/17 TIME: 15:17 Assessment/Plan Assessment/Plan Chief Complaint/Hosp Course 1 Acute kidney injury 2. Rule out drug induced acute renal failure in the form of ARB with the patient on metformin. 3 Mild hyperkalemia 4 Hypernatremia 5 Diabetes mellitus. 6 Chronic kidney disease. 7 History of gastritis. 8. Anemia. 9 History of congestive heart failure. 10 dementia 11 UTI Problems: Additional Assessment/Plan 1. continue current regime 2. better DM control Consultation Date/Type/Reason Admit Date/Time Apr 17, 2017 at 00:30 Initial Consult Date 04/17/17 Type of Consultation: nephrology Reason for Consultation 24 HR Interval Summary Constitutional: improved, no complaints Exam/Review of Systems Vital Signs Vitals Vital Signs Date Time Temp Pulse Resp B/P Pulse Ox O2 Delivery O2 Flow Rate FiO2 04/22/17 15:08 81 20 96 Nasal Cannula 2.0 04/22/17 09:00 97.7 144/65 04/22/17 01:18 28 Intake and Output 04/21/17 04/21/17 04/22/17 15:00 23:00 07:00 Intake Total 1300 ml 900 ml Output Total 1200 ml 950 ml Balance 100 ml -50 ml Exam Constitutional: alert, oriented Respiratory: clear to auscultation Cardiovascular: regular rate and rhythm Gastrointestinal: other (obese), soft Results Result Diagram: 04/22/17 1010 04/22/17 1010 Results 24 hrs Laboratory Tests Test 04/21/17 17:25 04/21/17 20:42 04/22/17 01:33 04/22/17 07:49 Bedside Glucose 225 H 281 H 149 146 Test 04/22/17 10:10 04/22/17 11:51 White Blood Count 7.3 # Red Blood Count 2.73 L Hemoglobin 8.3 L Hematocrit 27.8 L Mean Corpuscular Volume 101.8 H Mean Corpuscular Hemoglobin 30.4 Mean Corpuscular Hemoglobin Concent 29.9 L Red Cell Distribution Width 16.0 H Platelet Count 331 Mean Platelet Volume 10.2 Neutrophils % 62.8 Lymphocytes % 24.1 Monocytes % 8.6 Eosinophils % 3.4 Basophils % 0.4 Nucleated Red Blood Cells % 0.0 Neutrophils # (Manual) 4.6 Lymphocytes # 1.8 Monocytes # 0.6 Eosinophils # 0.3 Basophils # 0.0 Nucleated Red Blood Cells # 0.0 Sodium Level 144 Potassium Level 3.9 Chloride Level 107 Carbon Dioxide Level 29 Anion Gap 12 Blood Urea Nitrogen 30 H Creatinine 2.23 H Glucose Level 123 Calcium Level 8.3 L Bedside Glucose 227 H Medications Medications Current Medications Diagnostic Test (Pha) (Accu-Chek) 1 ea 02 XX Last administered on 04/21/17 01: 46; Admin Dose 1 EA; Start 04/17/17 at 02:00 Miscellaneous Information 1 ea NOTE XX ; Start 04/17/17 at 03:00 Glucose (Glutose) 15 gm Q15M PRN PO DECREASED GLUCOSE; Start 04/17/17 at 03:00 Glucose (Glutose) 22.5 gm Q15M PRN PO DECREASED GLUCOSE; Start 04/17/17 at 03: 00 Dextrose (D50w Syringe) 25 ml Q15M PRN IV DECREASED GLUCOSE; Start 04/17/17 at 03:00 Dextrose (D50w Syringe) 50 ml Q15M PRN IV DECREASED GLUCOSE; Start 04/17/17 at 03:00 Glucagon (Glucagen) 1 mg Q15M PRN IM DECREASED GLUCOSE; Start 04/17/17 at 03:00 Glucose (Glutose) 15 gm Q15M PRN BUCCAL DECREASED GLUCOSE; Start 04/17/17 at 03 :00 Atorvastatin Calcium (Lipitor) 40 mg QHS PO Last administered on 04/21/17 20: 45; Admin Dose 40 MG; Start 04/17/17 at 21:00 Acetaminophen (Tylenol Tab) 325 mg Q4 PRN PO PAIN AND OR ELEVATED TEMP Last administered on 04/22/17 01:08; Admin Dose 325 MG; Start 04/17/17 at 03:30 Apixaban (Eliquis) 2.5 mg BID PO Last administered on 04/22/17 08:00; Admin Dose 2.5 MG; Start 04/17/17 at 09:00 Metoprolol Succinate (Toprol Xl) 25 mg BID PO Last administered on 04/22/17 08: 01; Admin Dose 25 MG; Start 04/17/17 at 09:00 Pantoprazole (Protonix Tab) 40 mg DAILY@06 PO Last administered on 04/22/17 06: 34; Admin Dose 40 MG; Start 04/17/17 at 06:00 Aspirin (Halfprin) 81 mg DAILY PO Last administered on 04/22/17 08:00; Admin Dose 81 MG; Start 04/18/17 at 09:00 Insulin Glargine 18 unit 18 unit HS SC Last administered on 04/21/17 20:45; Admin Dose 18 UNIT; Start 04/20/17 at 21:00 Sodium Chloride (1/2 NS) 1,000 ml @ 50 mls/hr Q20H IV Last administered on 17:35; Admin Dose 50 MLS/HR; Start 04/21/17 at 17:00 VIVIANE GORE Apr 22, 2017 15:18
--- NOTE | 2017-04-22 17:50 | HP ---
Date/Time of Note Date/Time of Note DATE: 04/17/17 TIME: 12:59 Assessment/Plan VTE Prophylaxis VTE Prophylaxis Intervention: other Lines/Catheters IV Catheter Type (from [facility]): Peripheral IV Urinary Cath still in place: No Assessment/Plan Assessment/Plan -Acute renal failure - Nephrology consult- notified -Altered level of consciousness - no fall/injury -Anemia - cbc am - Diabetes mellitus: Check A1c start patient on insulin sliding scale. - Glycemic control -Hypertension -DVT prophylaxis: SCDs, - GI prophylaxis: Protonix HPI/ROS Admit Date/Time Admit Date/Time Apr 17, 2017 at 00:30 Hx of Present Illness increased confusion, hx dementia,from [facility] HPI Patient is an 86-year-old female who presents more altered than usual. Please note the history and physical exam is limited secondary to the patient's mental status. The patient was brought in by ambulance. She was supposedly more altered than usual and had a UTI. She was sent by her primary doctor Dr. Hendrickson. It is difficult to obtain history otherwise. ROS All systems reviewed and are negative except as per history of present illness. Allergies Allergies: Coded Allergies: No Known Allergy (Unverified , 03/01/17) PMH/Family/Social Past Medical History PMhx/Soc History of Surgery: No Anesthesia Reaction: No Hx Neurological Disorder: No Hx Respiratory Disorders: No Hx Cardiac Disorders: Yes (HIGH CHOLESTEROL) Hx Psychiatric Problems: No Hx Miscellaneous Medical Probl: Yes (See EMR for details. ) Hx Alcohol Use: No Hx Substance Use: No ([place]) Hx Tobacco Use: Yes Smoking Status: Former smoker FmHx Unable to obtain Past Surgical History Past Surgical Hx: no surgical history Social History Smoking Status: Former smoker Exam/Review of Systems Vital Signs Vitals Vital Signs Date Time Temp Pulse Resp B/P Pulse Ox O2 Delivery O2 Flow Rate FiO2 04/17/17 07:48 97.4 70 19 118/80 98 04/17/17 07:41 2.0 04/17/17 07:40 Nasal Cannula Intake and Output 04/16/17 04/16/17 04/17/17 15:00 23:00 07:00 Intake Total 280 ml Balance 280 ml Exam Constitutional: alert, well developed Respiratory: clear to auscultation, normal air movement Cardiovascular: nl pulses, regular rate and rhythm Gastrointestinal: non-tender, soft Musculoskeletal: nl extremities to inspection, other Extremities: normal pulses Labs Result Diagram: 04/16/178 04/16/178 Medications Medications Current Medications Diagnostic Test (Pha) (Accu-Chek) 1 ea 02 XX ; Start 04/17/17 at 02:00 Insulin Glargine (Lantus) 15 unit HS SC ; Start 04/17/17 at 21:00 Diagnostic Test (Pha) 1 ea 1 ea 02 XX ; Start 04/17/17 at 02:00 Ceftriaxone Sodium (Rocephin) 50 ml @ 100 mls/hr Q24H IVPB ; Start 04/17/17 at 02:00 Miscellaneous Information 1 ea NOTE XX ; Start 04/17/17 at 03:00 Glucose (Glutose) 15 gm Q15M PRN PO DECREASED GLUCOSE; Start 04/17/17 at 03:00 Glucose (Glutose) 22.5 gm Q15M PRN PO DECREASED GLUCOSE; Start 04/17/17 at 03: 00 Dextrose (D50w Syringe) 25 ml Q15M PRN IV DECREASED GLUCOSE; Start 04/17/17 at 03:00 Dextrose (D50w Syringe) 50 ml Q15M PRN IV DECREASED GLUCOSE; Start 04/17/17 at 03:00 Glucagon (Glucagen) 1 mg Q15M PRN IM DECREASED GLUCOSE; Start 04/17/17 at 03:00 Glucose (Glutose) 15 gm Q15M PRN BUCCAL DECREASED GLUCOSE; Start 04/17/17 at 03 :00 Atorvastatin Calcium (Lipitor) 40 mg QHS PO ; Start 04/17/17 at 21:00 Acetaminophen (Tylenol Tab) 325 mg Q4 PRN PO PAIN AND OR ELEVATED TEMP; Start 04/17/17 at 03:30 Apixaban (Eliquis) 2.5 mg BID PO Last administered on 04/17/17 08:47; Admin Dose 2.5 MG; Start 04/17/17 at 09:00 Metoprolol Succinate (Toprol Xl) 25 mg BID PO Last administered on 04/17/17 08 :47; Admin Dose 25 MG; Start 04/17/17 at 09:00 Pantoprazole 40 mg 40 mg DAILY@06 PO Last administered on 04/17/17 06:22; Admin Dose 40 MG; Start 04/17/17 at 06:00 Sodium Chloride (NS) 1,000 ml @ 100 mls/hr Q10H IV Last administered on t 10:56; Admin Dose 100 MLS/HR; Start 04/17/17 at 10:30 KELLY MEYER Apr 17, 2017 13:24
--- NOTE | 2017-04-22 17:52 | PN ---
Date/Time of Note Date/Time of Note DATE: 04/22/17 TIME: 17:51 Assessment/Plan VTE Prophylaxis VTE Prophylaxis Intervention: SCD's Lines/Catheters IV [facility] (from [facility] Peripheral IV Urinary Cath still in place: No Assessment/Plan Assessment/Plan - Acute kidney injury related to dehydration and possible urinary tract infection. is following in nephrology consultation. -Encephalopathy- resolving - per ID - Diabetes mellitus. Metformin is held due to acute kidney injury, continue Lantus and NovoLog. - Anemia, will obtain stool for OB. Continue to monitor H&H. - Essential hypertension - History of atrial fibrillation with rapid ventricular response, continue metoprolol and Eliquis. - Hyperlipidemia, continue statin. - Dementia Recommendations based on clinical course. Plan of care discussed with Dr. Hendrickson. Subjective 24 Hr Interval Summary Free Text/Dictation HAD swallow eval- NPO except meds recommended. aspiration precautions, dw staff Exam/Review of Systems Vital Signs Vitals Vital Signs Date Time Temp Pulse Resp B/P Pulse Ox O2 Delivery O2 Flow Rate FiO2 04/22/17 15:08 81 20 96 Nasal Cannula 2.0 04/22/17 14:00 97.4 124/49 04/22/17 01:18 28 Intake and Output 04/21/17 04/21/17 04/22/17 15:00 23:00 07:00 Intake Total 1300 ml 900 ml Output Total 1200 ml 950 ml Balance 100 ml -50 ml Exam Constitutional: alert, well developed Respiratory: clear to auscultation, normal air movement Cardiovascular: nl pulses, regular rate and rhythm Gastrointestinal: non-tender, soft Musculoskeletal: nl extremities to inspection Neurological: other Results Result Diagram: 04/22/17 1010 04/22/17 1010 Results 24 hrs Laboratory Tests Test 04/21/17 20:42 04/22/17 01:33 04/22/17 07:49 04/22/17 10:10 Bedside Glucose 281 H 149 146 White Blood Count 7.3 # Red Blood Count 2.73 L Hemoglobin 8.3 L Hematocrit 27.8 L Mean Corpuscular Volume 101.8 H Mean Corpuscular Hemoglobin 30.4 Mean Corpuscular Hemoglobin Concent 29.9 L Red Cell Distribution Width 16.0 H Platelet Count 331 Mean Platelet Volume 10.2 Neutrophils % 62.8 Lymphocytes % 24.1 Monocytes % 8.6 Eosinophils % 3.4 Basophils % 0.4 Nucleated Red Blood Cells % 0.0 Neutrophils # (Manual) 4.6 Lymphocytes # 1.8 Monocytes # 0.6 Eosinophils # 0.3 Basophils # 0.0 Nucleated Red Blood Cells # 0.0 Sodium Level 144 Potassium Level 3.9 Chloride Level 107 Carbon Dioxide Level 29 Anion Gap 12 Blood Urea Nitrogen 30 H Creatinine 2.23 H Glucose Level 123 Calcium Level 8.3 L Test 04/22/17 11:51 04/22/17 17:18 Bedside Glucose 227 H 390 H Medications Medications Current Medications Diagnostic Test (Pha) (Accu-Chek) 1 ea 02 XX Last administered on 04/21/17 01: 46; Admin Dose 1 EA; Start 04/17/17 at 02:00 Miscellaneous Information 1 ea NOTE XX ; Start 04/17/17 at 03:00 Glucose (Glutose) 15 gm Q15M PRN PO DECREASED GLUCOSE; Start 04/17/17 at 03:00 Glucose (Glutose) 22.5 gm Q15M PRN PO DECREASED GLUCOSE; Start 04/17/17 at 03: 00 Dextrose (D50w Syringe) 25 ml Q15M PRN IV DECREASED GLUCOSE; Start 04/17/17 at 03:00 Dextrose (D50w Syringe) 50 ml Q15M PRN IV DECREASED GLUCOSE; Start 04/17/17 at 03:00 Glucagon (Glucagen) 1 mg Q15M PRN IM DECREASED GLUCOSE; Start 04/17/17 at 03:00 Glucose (Glutose) 15 gm Q15M PRN BUCCAL DECREASED GLUCOSE; Start 04/17/17 at 03 :00 Atorvastatin Calcium (Lipitor) 40 mg QHS PO Last administered on 04/21/17 20: 45; Admin Dose 40 MG; Start 04/17/17 at 21:00 Acetaminophen (Tylenol Tab) 325 mg Q4 PRN PO PAIN AND OR ELEVATED TEMP Last administered on 04/22/17 01:08; Admin Dose 325 MG; Start 04/17/17 at 03:30 Apixaban (Eliquis) 2.5 mg BID PO Last administered on 04/22/17 08:00; Admin Dose 2.5 MG; Start 04/17/17 at 09:00 Metoprolol Succinate (Toprol Xl) 25 mg BID PO Last administered on 04/22/17 08: 01; Admin Dose 25 MG; Start 04/17/17 at 09:00 Pantoprazole (Protonix Tab) 40 mg DAILY@06 PO Last administered on 04/22/17 06: 34; Admin Dose 40 MG; Start 04/17/17 at 06:00 Aspirin (Halfprin) 81 mg DAILY PO Last administered on 04/22/17 08:00; Admin Dose 81 MG; Start 04/18/17 at 09:00 Insulin Glargine (Lantus) 25 unit HS SC ; Start 04/22/17 at 21:00 KELLY MEYER Apr 22, 2017 17:52
[2017-04-22 20:11] VITALS: BP 133/57; RESP 18
[2017-04-22] MEDS: ATORVASTATIN 40 MG TAB PO SCH (21:21)
[2017-04-22] MEDS: INSULIN GLARGINE [LANtus] 3 ML PEN SC SCH (21:29)
[2017-04-23] MEDS: ACCU-CHEK XX SCH (02:00)
[2017-04-23] MEDS: LEVALBUTEROL (NEB) 0.63 MG/3 ML AMP INH SCH ×4 (02:08→19:48)
[2017-04-23 02:11] VITALS: BP 106/56; RESP 18
[2017-04-23] MEDS: LEVALBUTEROL (NEB) 0.63 MG/3 ML AMP HHN PRN (04:57)
[2017-04-23] MEDS: PANTOPRAZOLE (EC) 40 MG TAB PO SCH (05:51)
[2017-04-23 06:55] LABS: BASOPHILS % 0.3 % (0.0-2.0); EOSINOPHILS # 0.2 10^3/ul (0.0-0.5); EOSINOPHILS % 2.2 % (0.0-7.0); HEMATOCRIT 28.7 % (37.0-47.0); HEMOGLOBIN 8.5 g/dl (12.0-16.0); LYMPHOCYTES # 2.2 10^3/ul (0.8-2.9); MEAN CORPUSCULAR HEMOGLOBIN 30.6 pg (29.0-33.0); MEAN CORPUSCULAR HGB CONC 29.6 g/dl (32.0-37.0); MEAN CORPUSCULAR VOLUME 103.2 fl (82.0-101.0); MEAN PLATELET VOLUME 10.4 fl (7.4-10.4); MONOCYTE # 0.8 10^3/ul (0.3-0.9); MONOCYTES % 6.7 % (0.0-11.0); NEUTROPHILS % 70.4 % (39.0-77.0); PLATELET COUNT 366 10^3/UL (140-415); RED BLOOD COUNT 2.78 10^6/ul (4.20-5.40); WHITE BLOOD COUNT 11.2 10^3/ul (4.8-10.8)
[2017-04-23 07:18] LABS: CALCIUM 8.3 mg/dl (8.4-10.2); CREATININE 1.82 mg/dl (0.44-1.00); POTASSIUM 4.6 mmol/L (3.5-5.1)
[2017-04-23] MEDS ORDERED: INSULIN ASPART [NOVOLOG] 3 ML PEN SC SCH (07:35)
[2017-04-23 07:52] VITALS: BP 159/68; RESP 20
[2017-04-23] MEDS: INSULIN ASPART [NOVOLOG] 3 ML PEN SC SCH ×4 (08:00→20:08)
[2017-04-23] MEDS: APIXABAN 5 MG TABLET PO SCH ×2 (09:08→20:04)
[2017-04-23] MEDS: ASPIRIN (EC) 81 MG TAB PO SCH (09:08)
[2017-04-23] MEDS: METOPROLOL (XL) 25 MG TAB PO SCH ×2 (09:09→20:06)
--- NOTE | 2017-04-23 11:48 | PN ---
Date/Time of Note Date/Time of Note DATE: 04/23/17 TIME: 11:48 Assessment/Plan VTE Prophylaxis VTE Prophylaxis Intervention: other Lines/Catheters IV Catheter Type (from [facility]): Peripheral IV Urinary Cath still in place: No Assessment/Plan Chief Complaint/Hosp Course - Acute kidney injury related to dehydration and possible urinary tract infection. is following in nephrology consultation. -Encephalopathy- resolving - per ID - Diabetes mellitus. Metformin is held due to acute kidney injury, continue Lantus and NovoLog. - Anemia, will obtain stool for OB. Continue to monitor H&H. - Essential hypertension - History of atrial fibrillation with rapid ventricular response, continue metoprolol and Eliquis. - Hyperlipidemia, continue statin. - Dementia Problems: Subjective 24 Hr Interval Summary Free Text/Dictation Patient has no complaints Exam/Review of Systems Vital Signs Vitals Vital Signs Date Time Temp Pulse Resp B/P Pulse Ox O2 Delivery O2 Flow Rate FiO2 04/23/17 08:00 Nasal Cannula 2.0 04/23/17 07:52 98.3 71 20 159/68 94 04/22/17 01:18 28 Intake and Output 04/22/17 04/22/17 04/23/17 15:00 23:00 07:00 Intake Total 1637 ml 850 ml Output Total 950 ml 1050 ml Balance 687 ml -200 ml Exam Constitutional: well developed Head: atraumatic, normocephalic Neck: supple Respiratory: clear to auscultation Cardiovascular: regular rate and rhythm Gastrointestinal: non-tender, soft Extremities: normal pulses Results Result Diagram: 04/23/17 0604/23/17 0605 Results 24 hrs Laboratory Tests Test 04/22/17 11:51 04/22/17 17:18 04/22/17 21:24 04/23/17 02:22 Bedside Glucose 227 H 390 H 187 125 Test 04/23/17 06:05 04/23/17 08:11 White Blood Count 11.2 #H Red Blood Count 2.78 L Hemoglobin 8.5 L Hematocrit 28.7 L Mean Corpuscular Volume 103.2 H Mean Corpuscular Hemoglobin 30.6 Mean Corpuscular Hemoglobin Concent 29.6 L Red Cell Distribution Width 16.0 H Platelet Count 366 Mean Platelet Volume 10.4 Neutrophils % 70.4 Lymphocytes % 20.0 Monocytes % 6.7 Eosinophils % 2.2 Basophils % 0.3 Nucleated Red Blood Cells % 0.0 Neutrophils # (Manual) 7.9 H Lymphocytes # 2.2 Monocytes # 0.8 Eosinophils # 0.2 Basophils # 0.0 Nucleated Red Blood Cells # 0.0 Sodium Level 147 H Potassium Level 4.6 Chloride Level 109 Carbon Dioxide Level 30 Anion Gap 13 Blood Urea Nitrogen 33 H Creatinine 1.82 H Glucose Level 115 Calcium Level 8.3 L Bedside Glucose 112 Medications Medications Current Medications Diagnostic Test (Pha) (Accu-Chek) 1 ea 02 XX Last administered on 04/21/17 01: 46; Admin Dose 1 EA; Start 04/17/17 at 02:00 Miscellaneous Information 1 ea NOTE XX ; Start 04/17/17 at 03:00 Glucose (Glutose) 15 gm Q15M PRN PO DECREASED GLUCOSE; Start 04/17/17 at 03:00 Glucose (Glutose) 22.5 gm Q15M PRN PO DECREASED GLUCOSE; Start 04/17/17 at 03: 00 Dextrose (D50w Syringe) 25 ml Q15M PRN IV DECREASED GLUCOSE; Start 04/17/17 at 03:00 Dextrose (D50w Syringe) 50 ml Q15M PRN IV DECREASED GLUCOSE; Start 04/17/17 at 03:00 Glucagon (Glucagen) 1 mg Q15M PRN IM DECREASED GLUCOSE; Start 04/17/17 at 03:00 Glucose (Glutose) 15 gm Q15M PRN BUCCAL DECREASED GLUCOSE; Start 04/17/17 at 03 :00 Atorvastatin Calcium (Lipitor) 40 mg QHS PO Last administered on 04/22/17 21:21 ; Admin Dose 40 MG; Start 04/17/17 at 21:00 Acetaminophen (Tylenol Tab) 325 mg Q4 PRN PO PAIN AND OR ELEVATED TEMP Last administered on 04/22/17 01:08; Admin Dose 325 MG; Start 04/17/17 at 03:30 Apixaban (Eliquis) 2.5 mg BID PO Last administered on 04/23/17 09:08; Admin Dose 2.5 MG; Start 04/17/17 at 09:00 Metoprolol Succinate (Toprol Xl) 25 mg BID PO Last administered on 04/23/17 09: 09; Admin Dose 25 MG; Start 04/17/17 at 09:00 Pantoprazole (Protonix Tab) 40 mg DAILY@06 PO Last administered on 04/23/17 05: 51; Admin Dose 40 MG; Start 04/17/17 at 06:00 Aspirin (Halfprin) 81 mg DAILY PO Last administered on 04/23/17 09:08; Admin Dose 81 MG; Start 04/18/17 at 09:00 Insulin Glargine 25 unit 25 unit HS SC Last administered on 04/22/17 21:29; Admin Dose 25 UNIT; Start 04/22/17 at 21:00 Sodium Chloride (1/2 NS) 1,000 ml @ 50 mls/hr Q20H IV Last administered on 04/22 18:50; Admin Dose 50 MLS/HR; Start 04/22/17 at 18:00 JENNA HILLIARD Apr 23, 2017 11:48
[2017-04-23] MEDS: SOD CHLORIDE 0.45% 1,000 ML IV SCH ×2 (13:12→22:15)
[2017-04-23 14:32] VITALS: BP 136/63; RESP 20
[2017-04-23 19:33] VITALS: BP 143/64; RESP 21
--- NOTE | 2017-04-23 19:54 | CONS ---
Date/Time of Note Date/Time of Note DATE: 04/23/17 TIME: 19:42 Assessment/Plan Assessment/Plan Chief Complaint/Hosp Course ID PROGRESS NOTE CURRENT ABX: => OFF ABX s/p Ceftriaxone 24H INTERVAL SUMMARY * Resting w/eyes closed, sitter present, O2 via NC without dyspnea, no diarrhea EXAM GEN: VSS, no fevers, HEENT: Unremarkable NECK: WNL CVS: RRR, CHEST:Equal chest rise bilaterally, without dyspnea ABD: Soft, NT, EXT: No c/c/e ID ASSESSMENT 86 yo F w/dementia admit from SNF w/increased confusion 2/2 UTI, EVELINE @ SNF: 1. SIRS w/leukocytosis, AMS, confusion on admission -> Due to UTI @ SNF 2. EVELINE in setting dehydration, UTI @ SNF 3. HTN 4. Afib w/RVR -> resolved 5. Dysphagia? Cannot rule out silent aspiration syndrome without full blown PNA (-) MRSA Nares INVASIVES: PIV CURRENT ABX: =>OFF ABX, s/p Ceftriaxone ID RECOMMENDATIONS: Ceftriaxone does not cover CoNS (+)urine pathogen, although that may be a skin contaminant Let's give her a single dose of Fosfomycin po and see how her WBC responds Aspiration precautions . Problems: Consultation Date/Type/Reason Admit Date/Time Apr 17, 2017 at 00:30 Initial Consult Date 04/17/17 Type of Consultation: ID Exam/Review of Systems Vital Signs Vitals Vital Signs Date Time Temp Pulse Resp B/P Pulse Ox O2 Delivery O2 Flow Rate FiO2 04/23/17 19:33 98.2 74 21 143/64 98 04/23/17 16:45 2.0 04/23/17 14:10 Nasal Cannula 04/22/17 01:18 28 Intake and Output 04/22/17 04/22/17 04/23/17 15:00 23:00 07:00 Intake Total 1637 ml 850 ml Output Total 950 ml 1050 ml Balance 687 ml -200 ml Results Result Diagram: 04/23/17 0605 04/23/17 0605 Results 24 hrs Laboratory Tests Test 04/22/17 21:24 04/23/17 02:22 04/23/17 06:05 04/23/17 08:11 Bedside Glucose 187 125 112 White Blood Count 11.2 #H Red Blood Count 2.78 L Hemoglobin 8.5 L Hematocrit 28.7 L Mean Corpuscular Volume 103.2 H Mean Corpuscular Hemoglobin 30.6 Mean Corpuscular Hemoglobin Concent 29.6 L Red Cell Distribution Width 16.0 H Platelet Count 366 Mean Platelet Volume 10.4 Neutrophils % 70.4 Lymphocytes % 20.0 Monocytes % 6.7 Eosinophils % 2.2 Basophils % 0.3 Nucleated Red Blood Cells % 0.0 Neutrophils # (Manual) 7.9 H Lymphocytes # 2.2 Monocytes # 0.8 Eosinophils # 0.2 Basophils # 0.0 Nucleated Red Blood Cells # 0.0 Sodium Level 147 H Potassium Level 4.6 Chloride Level 109 Carbon Dioxide Level 30 Anion Gap 13 Blood Urea Nitrogen 33 H Creatinine 1.82 H Glucose Level 115 Calcium Level 8.3 L Test 04/23/17 12:37 04/23/17 17:13 Bedside Glucose 118 220 Medications Medications Current Medications Diagnostic Test (Pha) (Accu-Chek) 1 ea 02 XX Last administered on 04/21/17 01: 46; Admin Dose 1 EA; Start 04/17/17 at 02:00 Miscellaneous Information 1 ea NOTE XX ; Start 04/17/17 at 03:00 Glucose (Glutose) 15 gm Q15M PRN PO DECREASED GLUCOSE; Start 04/17/17 at 03:00 Glucose (Glutose) 22.5 gm Q15M PRN PO DECREASED GLUCOSE; Start 04/17/17 at 03: 00 Dextrose (D50w Syringe) 25 ml Q15M PRN IV DECREASED GLUCOSE; Start 04/17/17 at 03:00 Dextrose (D50w Syringe) 50 ml Q15M PRN IV DECREASED GLUCOSE; Start 04/17/17 at 03:00 Glucagon (Glucagen) 1 mg Q15M PRN IM DECREASED GLUCOSE; Start 04/17/17 at 03:00 Glucose (Glutose) 15 gm Q15M PRN BUCCAL DECREASED GLUCOSE; Start 04/17/17 at 03 :00 Atorvastatin Calcium (Lipitor) 40 mg QHS PO Last administered on 04/22/17 21:21 ; Admin Dose 40 MG; Start 04/17/17 at 21:00 Acetaminophen (Tylenol Tab) 325 mg Q4 PRN PO PAIN AND OR ELEVATED TEMP Last administered on 04/22/17 01:08; Admin Dose 325 MG; Start 8/27/17 at 03:30 Apixaban (Eliquis) 2.5 mg BID PO Last administered on 04/23/17 09:08; Admin Dose 2.5 MG; Start 04/17/17 at 09:00 Metoprolol Succinate (Toprol Xl) 25 mg BID PO Last administered on 04/23/17 09: 09; Admin Dose 25 MG; Start 04/17/17 at 09:00 Pantoprazole (Protonix Tab) 40 mg DAILY@06 PO Last administered on 04/23/17 05: 51; Admin Dose 40 MG; Start 04/17/17 at 06:00 Aspirin (Halfprin) 81 mg DAILY PO Last administered on 04/23/17 09:08; Admin Dose 81 MG; Start 04/18/17 at 09:00 Insulin Glargine 25 unit 25 unit HS SC Last administered on 04/22/17 21:29; Admin Dose 25 UNIT; Start 04/22/17 at 21:00 Sodium Chloride (1/2 NS) 1,000 ml @ 50 mls/hr Q20H IV Last administered on 04/22 18:50; Admin Dose 50 MLS/HR; Start 04/22/17 at 18:00 SUZY ISABEL NP Apr 23, 2017 19:53
[2017-04-23] MEDS: ATORVASTATIN 40 MG TAB PO SCH (20:05)
[2017-04-23] MEDS: INSULIN GLARGINE [LANtus] 3 ML PEN SC SCH (20:09)
[2017-04-23] MEDS ORDERED: FOSFOMYCIN 3 GM PACKET PO ONE (21:00)
[2017-04-24 01:40] VITALS: BP 152/66; RESP 20
[2017-04-24] MEDS: ACCU-CHEK XX SCH (02:06)
[2017-04-24] MEDS: LEVALBUTEROL (NEB) 0.63 MG/3 ML AMP INH SCH ×4 (02:16→19:45)
[2017-04-24] MEDS: PANTOPRAZOLE (EC) 40 MG TAB PO SCH (06:00)
[2017-04-24 06:05] VITALS: BP 137/69; PULSE 73; RESP 21
[2017-04-24 07:12] VITALS: BP 138/72; RESP 18
[2017-04-24] MEDS: INSULIN ASPART [NOVOLOG] 3 ML PEN SC SCH ×4 (07:52→20:12)
[2017-04-24] MEDS: ASPIRIN (EC) 81 MG TAB PO SCH (09:54)
[2017-04-24] MEDS: METOPROLOL (XL) 25 MG TAB PO SCH ×2 (09:55→20:10)
[2017-04-24] MEDS: APIXABAN 5 MG TABLET PO SCH ×2 (09:56→20:10)
--- NOTE | 2017-04-24 12:27 | PN ---
Date/Time of Note Date/Time of Note DATE: 04/24/17 TIME: 12:26 Assessment/Plan VTE Prophylaxis VTE Prophylaxis Intervention: other Lines/Catheters [facility] Peripheral IV Urinary Cath still in place: No Assessment/Plan Chief Complaint/Hosp Course - Acute kidney injury related to dehydration and possible urinary tract infection. is following in nephrology consultation. -Encephalopathy- resolving - per ID - Diabetes mellitus. Metformin is held due to acute kidney injury, continue Lantus and NovoLog. - Anemia, will obtain stool for OB. Continue to monitor H&H. - Essential hypertension - History of atrial fibrillation with rapid ventricular response, continue metoprolol and Eliquis. - Hyperlipidemia, continue statin. - Dementia Problems: Subjective 24 Hr Interval Summary Free Text/Dictation Patient has no complaints Exam/Review of Systems Vital Signs Vitals Vital Signs Date Time Temp Pulse Resp B/P Pulse Ox O2 Delivery O2 Flow Rate FiO2 04/24/17 07:43 94 2.0 04/24/17 07:43 76 24 Nasal Cannula 04/24/17 07:12 99.8 138/72 04/22/17 01:18 28 Intake and Output 04/23/17 04/23/17 04/24/17 15:00 23:00 07:00 Intake Total 1460 ml 900 ml Output Total 530 ml 1650 ml Balance 930 ml -750 ml Exam Constitutional: well developed Head: atraumatic, normocephalic Neck: supple Respiratory: clear to auscultation Cardiovascular: regular rate and rhythm Gastrointestinal: non-tender, soft Extremities: normal pulses Results Result Diagram: 04/23/1760404/23/17 0605 Results 24 hrs Laboratory Tests Test 04/23/17 12:37 04/23/17 17:13 04/23/17 20:00 04/24/17 01:59 Bedside Glucose 118 220 206 134 Test 04/24/17 07:49 04/24/17 11:45 Bedside Glucose 112 90 Medications Medications Current Medications Diagnostic Test (Pha) (Accu-Chek) 1 ea 02 XX Last administered on 04/24/17t 02: 06; Admin Dose 1 EA; Start 04/17/17 at 02:00 Miscellaneous Information 1 ea NOTE XX ; Start 04/17/17 at 03:00 Glucose (Glutose) 15 gm Q15M PRN PO DECREASED GLUCOSE; Start 04/17/17 at 03:00 Glucose (Glutose) 22.5 gm Q15M PRN PO DECREASED GLUCOSE; Start 04/17/17 at 03: 00 Dextrose (D50w Syringe) 25 ml Q15M PRN IV DECREASED GLUCOSE; Start 04/17/17 at 03:00 Dextrose (D50w Syringe) 50 ml Q15M PRN IV DECREASED GLUCOSE; Start 04/17/17 at 03:00 Glucagon (Glucagen) 1 mg Q15M PRN IM DECREASED GLUCOSE; Start 04/17/17 at 03:00 Glucose (Glutose) 15 gm Q15M PRN BUCCAL DECREASED GLUCOSE; Start 04/17/17 at 03 :00 Atorvastatin Calcium (Lipitor) 40 mg QHS PO Last administered on 04/23/17 20:05 ; Admin Dose 40 MG; Start 04/17/17 at 21:00 Acetaminophen (Tylenol Tab) 325 mg Q4 PRN PO PAIN AND OR ELEVATED TEMP Last administered on 04/22/17 01:08; Admin Dose 325 MG; Start 04/17/17 at 03:30 Apixaban (Eliquis) 2.5 mg BID PO Last administered on 04/24/17 09:56; Admin Dose 2.5 MG; Start 04/17/17 at 09:00 Metoprolol Succinate (Toprol Xl) 25 mg BID PO Last administered on 04/24/17 09: 55; Admin Dose 25 MG; Start 04/17/17 at 09:00 Pantoprazole (Protonix Tab) 40 mg DAILY@06 PO Last administered on 04/23/17 05: 51; Admin Dose 40 MG; Start 04/17/17 at 06:00 Aspirin (Halfprin) 81 mg DAILY PO Last administered on 04/24/17 09:54; Admin Dose 81 MG; Start 04/18/17 at 09:00 Insulin Glargine 25 unit 25 unit HS SC Last administered on 04/23/17 20:09; Admin Dose 25 UNIT; Start 04/22/17 at 21:00 Sodium Chloride (1/2 NS) 1,000 ml @ 50 mls/hr Q20H IV Last administered on 04/23 22:15; Admin Dose 50 MLS/HR; Start 04/22/17 at 18:00 JENNA HILLIARD Apr 24, 2017 12:27
--- NOTE | 2017-04-24 13:38 | CONS ---
Date/Time of Note Date/Time of Note DATE: 04/24/17 TIME: 13:37 Assessment/Plan Assessment/Plan Chief Complaint/Hosp Course 1 Acute kidney injury 2. Rule out drug induced acute renal failure in the form of ARB with the patient on metformin. 3 Mild hypernatremia 4 Hypernatremia 5 Diabetes mellitus, controlled. 6 Chronic kidney disease. 7 History of gastritis. 8. Anemia. 9 History of congestive heart failure. 10 dementia 11 UTI Problems: Additional Assessment/Plan 1. continue current regime Consultation Date/Type/Reason Admit Date/Time Apr 17, 2017 at 00:30 Initial Consult Date 04/17/17 Type of Consultation: nephrology Reason for Consultation 24 HR Interval Summary Constitutional: improved, no complaints Exam/Review of Systems Vital Signs Vitals Vital Signs Date Time Temp Pulse Resp B/P Pulse Ox O2 Delivery O2 Flow Rate FiO2 04/24/17 10:00 Nasal Cannula 2.0 04/24/17 07:43 94 04/24/17 07:43 76 24 04/24/17 07:12 99.8 138/72 04/22/17 01:18 28 Intake and Output 04/23/17 04/23/17 04/24/17 14:59 22:59 06:59 Intake Total 1460 ml 900 ml Output Total 530 ml 1650 ml Balance 930 ml -750 ml Exam Constitutional: alert, oriented Neck: supple Respiratory: clear to auscultation Cardiovascular: regular rate and rhythm Results Result Diagram: 04/23/17 0605 04/23/17 0605 Results 24 hrs Laboratory Tests Test 04/23/17 17:13 04/23/17 20:00 04/24/17 01:59 04/24/17 07:49 Bedside Glucose 220 206 134 112 Test 04/24/17 11:45 Bedside Glucose 90 Medications Medications Current Medications Diagnostic Test (Pha) (Accu-Chek) 1 ea 02 XX Last administered on 04/24/17t 02: 06; Admin Dose 1 EA; Start 04/17/17 at 02:00 Miscellaneous Information 1 ea NOTE XX ; Start 04/17/17 at 03:00 Glucose (Glutose) 15 gm Q15M PRN PO DECREASED GLUCOSE; Start 04/17/17 at 03:00 Glucose (Glutose) 22.5 gm Q15M PRN PO DECREASED GLUCOSE; Start 04/17/17 at 03: 00 Dextrose (D50w Syringe) 25 ml Q15M PRN IV DECREASED GLUCOSE; Start 04/17/17 at 03:00 Dextrose (D50w Syringe) 50 ml Q15M PRN IV DECREASED GLUCOSE; Start 04/17/17 at 03:00 Glucagon (Glucagen) 1 mg Q15M PRN IM DECREASED GLUCOSE; Start 04/17/17 at 03:00 Glucose (Glutose) 15 gm Q15M PRN BUCCAL DECREASED GLUCOSE; Start 04/17/17 at 03 :00 Atorvastatin Calcium (Lipitor) 40 mg QHS PO Last administered on 04/23/17 20:05 ; Admin Dose 40 MG; Start 04/17/17 at 21:00 Acetaminophen (Tylenol Tab) 325 mg Q4 PRN PO PAIN AND OR ELEVATED TEMP Last administered on 04/22/17 01:08; Admin Dose 325 MG; Start 04/17/17 at 03:30 Apixaban (Eliquis) 2.5 mg BID PO Last administered on 04/24/17 09:56; Admin Dose 2.5 MG; Start 04/17/17 at 09:00 Metoprolol Succinate (Toprol Xl) 25 mg BID PO Last administered on 04/24/17 09: 55; Admin Dose 25 MG; Start 04/17/17 at 09:00 Pantoprazole (Protonix Tab) 40 mg DAILY@06 PO Last administered on 04/23/17 05: 51; Admin Dose 40 MG; Start 04/17/17 at 06:00 Aspirin (Halfprin) 81 mg DAILY PO Last administered on 04/24/17 09:54; Admin Dose 81 MG; Start 04/18/17 at 09:00 Insulin Glargine 25 unit 25 unit HS SC Last administered on 04/23/17 20:09; Admin Dose 25 UNIT; Start 04/22/17 at 21:00 Sodium Chloride (1/2 NS) 1,000 ml @ 50 mls/hr Q20H IV Last administered on 04/23 22:15; Admin Dose 50 MLS/HR; Start 04/22/17 at 18:00 VIVIANE GORE Apr 24, 2017 13:38
[2017-04-24 14:00] VITALS: BP 148/68; RESP 20
--- NOTE | 2017-04-24 15:19 | CONS ---
Date/Time of Note Date/Time of Note DATE: 04/24/17 TIME: 15:17 Assessment/Plan Assessment/Plan Chief Complaint/Hosp Course ID PROGRESS NOTE CURRENT ABX: => s/p Fosfomycin x1 04/23/17 s/p Ceftriaxone 24H INTERVAL SUMMARY * Tmax 99.8 w/slightly elevated WBC 11.8 * Looks comfortable Resting w/eyes closed, sitter present, O2 via NC without dyspnea, no diarrhea EXAM GEN: VSS, no fevers, HEENT: Unremarkable NECK: WNL CVS: RRR, CHEST:Equal chest rise bilaterally, without dyspnea ABD: Soft, NT, EXT: No c/c/e ID ASSESSMENT 86 yo F w/dementia admit from SNF w/increased confusion 2/2 UTI, [facility]INE @ SNF: 1. SIRS w/leukocytosis, AMS, confusion on admission -> Due to UTI @ SNF 2. EVELINE in setting dehydration, UTI @ SNF 3. HTN 4. Afib w/RVR -> resolved 5. Dysphagia? Cannot rule out silent aspiration syndrome without full blown PNA (-) MRSA Nares INVASIVES: PIV CURRENT ABX: => s/p Fosfomycin x1 04/23/17 s/p Ceftriaxone ID RECOMMENDATIONS: Ceftriaxone does not cover CoNS (+)urine pathogen, although that may be a skin contaminant s/p Fosfomycin x1 04/23/17 Aspiration precautions If she spikes fevers and/or WBC rises, repeat UA C&S, Blood Cx . . Problems: Consultation Date/Type/Reason Admit Date/Time Apr 17, 2017 at 00:30 Initial Consult Date 04/17/17 Type of Consultation: ID Exam/Review of Systems Vital Signs Vitals Vital Signs Date Time Temp Pulse Resp B/P Pulse Ox O2 Delivery O2 Flow Rate FiO2 04/24/17 10:00 Nasal Cannula 2.0 04/24/17 07:43 94 04/24/17 07:43 76 24 04/24/17 07:12 99.8 138/72 04/22/17 01:18 28 Intake and Output 04/23/17 04/23/17 04/24/17 15:00 23:00 07:00 Intake Total 1460 ml 900 ml Output Total 530 ml 1650 ml Balance 930 ml -750 ml Results Result Diagram: 04/23/17 0605 04/23/17 0605 Results 24 hrs Laboratory Tests Test 04/23/17 17:13 04/23/17 20:00 04/24/17 01:59 04/24/17 07:49 Bedside Glucose 220 206 134 112 Test 04/24/17 11:45 Bedside Glucose 90 Medications Medications Current Medications Diagnostic Test (Pha) (Accu-Chek) 1 ea 02 XX Last administered on 04/24/17 02: 06; Admin Dose 1 EA; Start 04/17/17 at 02:00 Miscellaneous Information 1 ea NOTE XX ; Start 04/17/17 at 03:00 Glucose (Glutose) 15 gm Q15M PRN PO DECREASED GLUCOSE; Start 04/17/17 at 03:00 Glucose (Glutose) 22.5 gm Q15M PRN PO DECREASED GLUCOSE; Start 04/17/17 at 03: 00 Dextrose (D50w Syringe) 25 ml Q15M PRN IV DECREASED GLUCOSE; Start 04/17/17 at 03:00 Dextrose (D50w Syringe) 50 ml Q15M PRN IV DECREASED GLUCOSE; Start 04/17/17 at 03:00 Glucagon (Glucagen) 1 mg Q15M PRN IM DECREASED GLUCOSE; Start 04/17/17 at 03:00 Glucose (Glutose) 15 gm Q15M PRN BUCCAL DECREASED GLUCOSE; Start 04/17/17 at 03 :00 Atorvastatin Calcium (Lipitor) 40 mg QHS PO Last administered on 04/23/17 20:05 ; Admin Dose 40 MG; Start 04/17/17 at 21:00 Acetaminophen (Tylenol Tab) 325 mg Q4 PRN PO PAIN AND OR ELEVATED TEMP Last administered on 04/22/17 01:08; Admin Dose 325 MG; Start 04/17/17 at 03:30 Apixaban (Eliquis) 2.5 mg BID PO Last administered on 04/24/17 09:56; Admin Dose 2.5 MG; Start 04/17/17 at 09:00 Metoprolol Succinate (Toprol Xl) 25 mg BID PO Last administered on 04/24/17 09: 55; Admin Dose 25 MG; Start 04/17/17 at 09:00 Pantoprazole (Protonix Tab) 40 mg DAILY@06 PO Last administered on 04/23/17 05: 51; Admin Dose 40 MG; Start 04/17/17 at 06:00 Aspirin (Halfprin) 81 mg DAILY PO Last administered on 04/24/17 09:54; Admin Dose 81 MG; Start 04/18/17 at 09:00 Insulin Glargine 25 unit 25 unit HS SC Last administered on 04/23/17 20:09; Admin Dose 25 UNIT; Start 04/22/17 at 21:00 Sodium Chloride (1/2 NS) 1,000 ml @ 50 mls/hr Q20H IV Last administered on 04/23 22:15; Admin Dose 50 MLS/HR; Start 04/22/17 at 18:00 SUZY ISABEL NP Apr 24, 2017 15:19
[2017-04-24 20:00] VITALS: BP 130/57; RESP 21
[2017-04-24] MEDS: ATORVASTATIN 40 MG TAB PO SCH (20:09)
[2017-04-24] MEDS: INSULIN GLARGINE [LANtus] 3 ML PEN SC SCH (20:13)
[2017-04-24] MEDS: SOD CHLORIDE 0.45% 1,000 ML IV SCH (20:37)
[2017-04-25] MEDS: ACETAMINOPHEN 325 MG TAB PO PRN (00:54)
[2017-04-25 02:00] VITALS: BP 144/61; RESP 22
[2017-04-25] MEDS: LEVALBUTEROL (NEB) 0.63 MG/3 ML AMP INH SCH ×4 (02:00→20:26)
[2017-04-25] MEDS: ACCU-CHEK XX SCH (02:08)
[2017-04-25] MEDS: LEVALBUTEROL (NEB) 0.63 MG/3 ML AMP HHN PRN (03:58)
[2017-04-25] MEDS: PANTOPRAZOLE (EC) 40 MG TAB PO SCH (06:27)
[2017-04-25 07:26] VITALS: BP 174/74; RESP 23
[2017-04-25] MEDS: INSULIN ASPART [NOVOLOG] 3 ML PEN SC SCH ×4 (08:00→21:00)
--- NOTE | 2017-04-25 08:42 | CONS ---
Date/Time of Note Date/Time of Note DATE: 04/25/17 TIME: 08:36 Assessment/Plan Assessment/Plan Chief Complaint/Hosp Course 86 y/o with 1 Acute kidney injury likely due to due to dehydration plus meds. Renal U.S negative for hydronephrosis Improving. Cr 1.82 ( baseline 0.8) 2. Rule out drug induced acute renal failure in the form of ARB with the patient on metformin. 3 Mild hyperkalemia improved 4 Hypernatremia 5 Diabetes mellitus. 6 Chronic kidney disease. 7 History of gastritis. 8. Anemia. 9 History of congestive heart failure. 10 dementia 11 UTI + ucx +staph s/p Fosfomycin Recs - c/w /2 NS at 50cc/hr - Repeat labs today - If Cr is trending down from 1.8 then can be discharged to [facility]( baseline is 0.8) - if sbp> 160 later today can titrate up MTP to 50 bid( SBP 170 this am however due her meds, yest SBP 130-140) - Kayexalate for hyperkalemia - Renal diet - avoid all nephrotoxic agents - Hold baclofen, diovan, metformin for now - Renally dose all meds Problems: Consultation Date/Type/Reason Admit Date/Time Apr 17, 2017 at 00:30 Initial Consult Date 04/17/17 Type of Consultation: Nephrology 24 HR Interval Summary Free Text/Dictation No new complains on 08/23 NS at 50 cc/hr Exam/Review of Systems Vital Signs Vitals Vital Signs Date Time Temp Pulse Resp B/P Pulse Ox O2 Delivery O2 Flow Rate FiO2 04/25/17 07:26 98.6 77 23 174/74 93 04/25/17 03:58 Nasal Cannula 2.0 04/22/17 01:18 28 Intake and Output 04/24/17 04/24/17 04/25/17 15:00 23:00 07:00 Intake Total 1200 ml 635 ml Output Total 700 ml 400 ml Balance 500 ml 235 ml Exam Gen:Awake Neck:Supple CVS: Regular rate and rthym Lungs: dec breath sounds at bases abdomen: soft, non tender Ext: no edema Results Result Diagram: 04/23/17 0605 04/23/17 0605 Results 24 hrs Laboratory Tests Test 04/24/17 11:45 04/24/17 17:29 04/24/17 20:06 04/25/17 02:04 Bedside Glucose 90 162 185 155 Test 04/25/17 08:08 Bedside Glucose 125 Medications Medications Current Medications Diagnostic Test (Pha) (Accu-Chek) 1 ea 02 XX Last administered on 04/25/17 02: 08; Admin Dose 1 EA; Start 04/17/17 at 02:00 Miscellaneous Information 1 ea NOTE XX ; Start 04/17/17 at 03:00 Glucose (Glutose) 15 gm Q15M PRN PO DECREASED GLUCOSE; Start 04/17/17 at 03:00 Glucose (Glutose) 22.5 gm Q15M PRN PO DECREASED GLUCOSE; Start 04/17/17 at 03: 00 Dextrose (D50w Syringe) 25 ml Q15M PRN IV DECREASED GLUCOSE; Start 04/17/17 at 03:00 Dextrose (D50w Syringe) 50 ml Q15M PRN IV DECREASED GLUCOSE; Start 04/17/17 at 03:00 Glucagon (Glucagen) 1 mg Q15M PRN IM DECREASED GLUCOSE; Start 04/17/17 at 03:00 Glucose (Glutose) 15 gm Q15M PRN BUCCAL DECREASED GLUCOSE; Start 04/17/17 at 03 :00 Atorvastatin Calcium (Lipitor) 40 mg QHS PO Last administered on 04/24/17 20:09 ; Admin Dose 40 MG; Start 04/17/17 at 21:00 Acetaminophen (Tylenol Tab) 325 mg Q4 PRN PO PAIN AND OR ELEVATED TEMP Last administered on 04/25/17 00:54; Admin Dose 325 MG; Start 04/17/17 at 03:30 Apixaban (Eliquis) 2.5 mg BID PO Last administered on 04/24/17 20:10; Admin Dose 2.5 MG; Start 04/17/17 at 09:00 Metoprolol Succinate (Toprol Xl) 25 mg BID PO Last administered on 04/24/17 20: 10; Admin Dose 25 MG; Start 04/17/17 at 09:00 Pantoprazole (Protonix Tab) 40 mg DAILY@06 PO Last administered on 04/25/17 06: 27; Admin Dose 40 MG; Start 04/17/17 at 06:00 Aspirin (Halfprin) 81 mg DAILY PO Last administered on 04/24/17 09:54; Admin Dose 81 MG; Start 04/18/17 at 09:00 Insulin Glargine 25 unit 25 unit HS SC Last administered on 04/24/17 20:13; Admin Dose 25 UNIT; Start 04/22/17 at 21:00 Sodium Chloride (1/2 NS) 1,000 ml @ 50 mls/hr Q20H IV Last administered on 04/24 20:37; Admin Dose 50 MLS/HR; Start 04/22/17 at 18:00 SUNITHA JOINER MD Apr 25, 2017 08:42
[2017-04-25 09:20] VITALS: BP 163/67; PULSE 81
[2017-04-25] MEDS: ASPIRIN (EC) 81 MG TAB PO SCH (09:23)
[2017-04-25] MEDS: METOPROLOL (XL) 25 MG TAB PO SCH (09:24)
[2017-04-25] MEDS: APIXABAN 5 MG TABLET PO SCH ×2 (09:24→22:29)
[2017-04-25 11:03] LABS: BASOPHILS % 0.3 % (0.0-2.0); EOSINOPHILS # 0.1 10^3/ul (0.0-0.5); HEMATOCRIT 28.4 % (37.0-47.0); HEMOGLOBIN 8.3 g/dl (12.0-16.0); LYMPHOCYTES # 1.6 10^3/ul (0.8-2.9); LYMPHOCYTES % 20.7 % (15.0-51.0); MEAN CORPUSCULAR HEMOGLOBIN 30.9 pg (29.0-33.0); MEAN CORPUSCULAR HGB CONC 29.2 g/dl (32.0-37.0); MEAN CORPUSCULAR VOLUME 105.6 fl (82.0-101.0); MONOCYTE # 0.5 10^3/ul (0.3-0.9); MONOCYTES % 6.8 % (0.0-11.0); NEUTROPHILS % 70.8 % (39.0-77.0); PLATELET COUNT 331 10^3/UL (140-415); RED BLOOD COUNT 2.69 10^6/ul (4.20-5.40); RED CELL DISTRIBUTION WIDTH 16.2 % (11.5-14.5); WHITE BLOOD COUNT 7.9 10^3/ul (4.8-10.8)
[2017-04-25 11:18] LABS: CALCIUM 8.9 mg/dl (8.4-10.2); CREATININE 1.09 mg/dl (0.44-1.00); POTASSIUM 4.1 mmol/L (3.5-5.1)
--- NOTE | 2017-04-25 11:39 | PN ---
Date/Time of Note Date/Time of Note DATE: 04/25/17 TIME: 11:38 Assessment/Plan VTE Prophylaxis VTE Prophylaxis Intervention: other Lines/Catheters IV Catheter Type (from [facility]): Peripheral IV Urinary Cath still in place: No Assessment/Plan Chief Complaint/Hosp Course - Acute kidney injury related to dehydration and possible urinary tract infection. is following in nephrology consultation. -Encephalopathy- resolving - per ID - Diabetes mellitus. Metformin is held due to acute kidney injury, continue Lantus and NovoLog. - Anemia, will obtain stool for OB. Continue to monitor H&H. - Essential hypertension - History of atrial fibrillation with rapid ventricular response, continue metoprolol and Eliquis. - Hyperlipidemia, continue statin. - Dementia Problems: Subjective 24 Hr Interval Summary Free Text/Dictation Patient is resting comfortably Exam/Review of Systems Vital Signs Vitals Vital Signs Date Time Temp Pulse Resp B/P Pulse Ox O2 Delivery O2 Flow Rate FiO2 04/25/17 09:52 Nasal Cannula 2.0 04/25/17 09:30 77 26 95 04/25/17 09:20 163/67 04/25/17 07:26 98.6 04/22/17 01:18 28 Intake and Output 04/24/17 04/24/17 04/25/17 14:59 22:59 06:59 Intake Total 1200 ml 635 ml Output Total 700 ml 400 ml Balance 500 ml 235 ml Exam Constitutional: well developed Head: atraumatic, normocephalic Neck: supple Respiratory: diminished breath sounds Cardiovascular: regular rate and rhythm Gastrointestinal: non-tender, soft Extremities: normal pulses Results Result Diagram: 04/25/17 1045 04/25/17 1045 Results 24 hrs Laboratory Tests Test 04/24/17 11:45 04/24/17 17:29 04/24/17 20:06 04/25/17 02:04 Bedside Glucose 90 162 185 155 Test 04/25/17 08:08 04/25/17 10:45 Bedside Glucose 125 White Blood Count 7.9 # Red Blood Count 2.69 L Hemoglobin 8.3 L Hematocrit 28.4 L Mean Corpuscular Volume 105.6 H Mean Corpuscular Hemoglobin 30.9 Mean Corpuscular Hemoglobin Concent 29.2 L Red Cell Distribution Width 16.2 H Platelet Count 331 Mean Platelet Volume 10.0 Neutrophils % 70.8 Lymphocytes % 20.7 Monocytes % 6.8 Eosinophils % 1.0 Basophils % 0.3 Nucleated Red Blood Cells % 0.0 Neutrophils # (Manual) 5.6 Lymphocytes # 1.6 Monocytes # 0.5 Eosinophils # 0.1 Basophils # 0.0 Nucleated Red Blood Cells # 0.0 Sodium Level 144 Potassium Level 4.1 Chloride Level 106 Carbon Dioxide Level 32 H Anion Gap 10 Blood Urea Nitrogen 23 H Creatinine 1.09 H Glucose Level 110 Calcium Level 8.9 Medications Medications Current Medications Diagnostic Test (Pha) (Accu-Chek) 1 ea 02 XX Last administered on 04/25/17 02: 08; Admin Dose 1 EA; Start 04/17/17 at 02:00 Miscellaneous Information 1 ea NOTE XX ; Start 04/17/17 at 03:00 Glucose (Glutose) 15 gm Q15M PRN PO DECREASED GLUCOSE; Start 04/17/17 at 03:00 Glucose (Glutose) 22.5 gm Q15M PRN PO DECREASED GLUCOSE; Start 04/17/17 at 03: 00 Dextrose (D50w Syringe) 25 ml Q15M PRN IV DECREASED GLUCOSE; Start 04/17/17 at 03:00 Dextrose (D50w Syringe) 50 ml Q15M PRN IV DECREASED GLUCOSE; Start 04/17/17 at 03:00 Glucagon (Glucagen) 1 mg Q15M PRN IM DECREASED GLUCOSE; Start 04/17/17 at 03:00 Glucose (Glutose) 15 gm Q15M PRN BUCCAL DECREASED GLUCOSE; Start 04/17/17 at 03 :00 Atorvastatin Calcium (Lipitor) 40 mg QHS PO Last administered on 04/24/17 20:09 ; Admin Dose 40 MG; Start 04/17/17 at 21:00 Acetaminophen (Tylenol Tab) 325 mg Q4 PRN PO PAIN AND OR ELEVATED TEMP Last administered on 04/25/17 00:54; Admin Dose 325 MG; Start 04/17/17 at 03:30 Apixaban (Eliquis) 2.5 mg BID PO Last administered on 04/25/17 09:24; Admin Dose 2.5 MG; Start 04/17/17 at 09:00 Metoprolol Succinate (Toprol Xl) 25 mg BID PO Last administered on 04/25/17 09: 24; Admin Dose 25 MG; Start 04/17/17 at 09:00 Pantoprazole (Protonix Tab) 40 mg DAILY@06 PO Last administered on 04/25/17 06: 27; Admin Dose 40 MG; Start 04/17/17 at 06:00 Aspirin (Halfprin) 81 mg DAILY PO Last administered on 04/25/17 09:23; Admin Dose 81 MG; Start 04/18/17 at 09:00 Insulin Glargine 25 unit 25 unit HS SC Last administered on 04/24/17 20:13; Admin Dose 25 UNIT; Start 04/22/17 at 21:00 Sodium Chloride (1/2 NS) 1,000 ml @ 50 mls/hr Q20H IV Last administered on 04/24 20:37; Admin Dose 50 MLS/HR; Start 04/22/17 at 18:00 JENNA HILLIARD Apr 25, 2017 11:39
[2017-04-25 14:11] VITALS: BP 150/66; RESP 24
[2017-04-25] MEDS: SOD CHLORIDE 0.45% 1,000 ML IV SCH (17:25)
[2017-04-25] MEDS: METOPROLOL (XL) 50 MG TAB PO SCH (20:27)
[2017-04-25] MEDS: ATORVASTATIN 40 MG TAB PO SCH (20:27)
[2017-04-25 20:28] VITALS: BP 164/72; RESP 22
[2017-04-25] MEDS ORDERED: FUROSEMIDE 20 MG INJ IV ONE (20:30)
[2017-04-25] MEDS ORDERED: INSULIN GLARGINE [LANtus] 3 ML PEN SC SCH (21:00)
[2017-04-25 22:47] VITALS: BP 156/70; RESP 21
[2017-04-26] MEDS: SOD CHLORIDE 0.45% 1,000 ML IV SCH (02:00)
[2017-04-26] MEDS: ACCU-CHEK XX SCH (02:00)
[2017-04-26] MEDS: LEVALBUTEROL (NEB) 0.63 MG/3 ML AMP INH SCH ×3 (02:07→14:06)
[2017-04-26 02:17] VITALS: BP 161/78; RESP 22
[2017-04-26 03:02] VITALS: BP 157/66; RESP 22
[2017-04-26 05:38] LABS: CALCIUM 8.9 mg/dl (8.4-10.2); CREATININE 0.99 mg/dl (0.44-1.00); POTASSIUM 3.7 mmol/L (3.5-5.1)
[2017-04-26] MEDS: PANTOPRAZOLE (EC) 40 MG TAB PO SCH (06:01)
[2017-04-26 06:32] VITALS: BP 162/72; RESP 22
[2017-04-26 08:00] VITALS: BP 158/71; RESP 18
[2017-04-26] MEDS: INSULIN ASPART [NOVOLOG] 3 ML PEN SC SCH ×2 (08:00→11:57)
[2017-04-26] MEDS: APIXABAN 5 MG TABLET PO SCH (08:48)
[2017-04-26] MEDS: METOPROLOL (XL) 50 MG TAB PO SCH (08:48)
[2017-04-26] MEDS: ASPIRIN (EC) 81 MG TAB PO SCH (08:48)
--- NOTE | 2017-04-26 12:13 | PN ---
Date/Time of Note Date/Time of Note DATE: 04/26/17 TIME: 12:13 Assessment/Plan Lines/Catheters IV C[facility] Type (from [facility]): Peripheral IV Urinary Cath still in place: No Exam/Review of Systems Vital Signs Vitals Vital Signs Date Time Temp Pulse Resp B/P Pulse Ox O2 Delivery O2 Flow Rate FiO2 04/26/17 11:08 Nasal Cannula 2.0 04/26/17 08:00 99.0 90 18 158/71 94 Intake and Output 04/25/17 04/25/17 04/26/17 15:00 23:00 07:00 Intake Total 775 ml 1155 ml Output Total 1050 ml Balance 775 ml 105 ml Results Result Diagram: 04/25/17 1045 04/26/17 0448 Results 24 hrs Laboratory Tests Test 04/25/17 17:26 04/25/17 20:03 04/25/17 20:42 04/26/17 04:48 Bedside Glucose 84 87 92 Sodium Level 144 Potassium Level 3.7 Chloride Level 105 Carbon Dioxide Level 34 H Anion Gap 9 Blood Urea Nitrogen 21 H Creatinine 0.99 Glucose Level 78 Calcium Level 8.9 Test 04/26/17 05:58 04/26/17 08:04 04/26/17 11:56 Bedside Glucose 102 84 94 Medications Medications Current Medications Diagnostic Test (Pha) (Accu-Chek) 1 ea 02 XX Last administered on 04/25/17t 02: 08; Admin Dose 1 EA; Start 04/17/17 at 02:00 Miscellaneous Information 1 ea NOTE XX ; Start 04/17/17 at 03:00 Glucose (Glutose) 15 gm Q15M PRN PO DECREASED GLUCOSE; Start 04/17/17 at 03:00 Glucose (Glutose) 22.5 gm Q15M PRN PO DECREASED GLUCOSE; Start 04/17/17 at 03: 00 Dextrose (D50w Syringe) 25 ml Q15M PRN IV DECREASED GLUCOSE; Start 04/17/17 at 03:00 Dextrose (D50w Syringe) 50 ml Q15M PRN IV DECREASED GLUCOSE; Start 04/17/17 at 03:00 Glucagon (Glucagen) 1 mg Q15M PRN IM DECREASED GLUCOSE; Start 04/17/17 at 03:00 Glucose (Glutose) 15 gm Q15M PRN BUCCAL DECREASED GLUCOSE; Start 04/17/17 at 03 :00 Atorvastatin Calcium (Lipitor) 40 mg QHS PO Last administered on 04/25/17 20:27 ; Admin Dose 40 MG; Start 04/17/17 at 21:00 Acetaminophen (Tylenol Tab) 325 mg Q4 PRN PO PAIN AND OR ELEVATED TEMP Last administered on 04/25/17 00:54; Admin Dose 325 MG; Start 04/17/17 at 03:30 Apixaban (Eliquis) 2.5 mg BID PO Last administered on 04/26/17 08:48; Admin Dose 2.5 MG; Start 04/17/17 at 09:00 Pantoprazole (Protonix Tab) 40 mg DAILY@06 PO Last administered on 04/26/17 06: 01; Admin Dose 40 MG; Start 04/17/17 at 06:00 Aspirin 81 mg 81 mg DAILY PO Last administered on 04/26/17 08:48; Admin Dose 81 MG; Start 04/18/17 at 09:00 Sodium Chloride (1/2 NS) 1,000 ml @ 50 mls/hr Q20H IV Last administered on 04/25 17:25; Admin Dose 50 MLS/HR; Start 04/22/17 at 18:00 Metoprolol Succinate (Toprol Xl) 50 mg BID PO Last administered on 04/26/17 08: 48; Admin Dose 50 MG; Start 04/25/17 at 21:00 Insulin Glargine (Lantus) 12 unit DAILY@20 SC Last administered on 04/25/17 20: 44; Admin Dose 12 UNIT; Start 04/25/17 at 21:00 KELLY MEYER Apr 26, 2017 12:13
--- NOTE | 2017-04-26 12:19 | DS ---
Date/Time of Note Date/Time of Note DATE: 04/26/17 TIME: 12:19 Discharge Summary Admission/Discharge Info Admit Date/Time Apr 17, 2017 at 00:30 Discharge Date/Time Patient Condition: Stable Hx of Present Illness increased confusion, hx dementia,from [facility], [place] HPI Patient is an 86-year-old female who presents more altered than usual. Please note the history and physical exam is limited secondary to the patient's mental status. The patient was brought in by ambulance. She was supposedly more altered than usual and had a UTI. She was sent by her primary doctor Dr. Hendrickson. It is difficult to obtain history otherwise. ROS All systems reviewed and are negative except as per history of present illness. Allergies Allergies: Coded Allergies: No Known Allergy (Unverified , 03/01/17) Hospital Course 86 y/o with 1 Acute kidney injury likely due to due to dehydration plus meds. Renal U.S negative for hydronephrosis Improving. Cr 1.82 ( baseline 0.8) 2. Rule out drug induced acute renal failure in the form of ARB with the patient on metformin. 3 Mild hyperkalemia improved 4 Hypernatremia 5 Diabetes mellitus. 6 Chronic kidney disease. 7 History of gastritis. 8. Anemia. 9 History of congestive heart failure. 10 dementia 11 UTI + ucx +staph s/p Fosfomycin Recs - c/w 1/2 NS at 50cc/hr - Repeat labs today - If Cr is trending down from 1.8 then can be discharged to [facility]( baseline is 0.8) - if sbp> 160 later today can titrate up MTP to 50 bid( SBP 170 this am however due her meds, yest SBP 130-140) - Kayexalate for hyperkalemia - Renal diet - avoid all nephrotoxic agents - Hold baclofen, diovan, metformin for now - Renally dose all meds Home Meds Reported Medications Levalbuterol (Xopenex) 0.63 Mg/3 Ml Nebu, 0.63 MG INHALATION Q6 Y for SHORTNESS OF BREATH, EACH 04/17/17 Levalbuterol (Xopenex) 0.63 Mg/3 Ml Nebu, 0.63 MG INHALATION Q6, EACH 04/17/17 Pantoprazole* (Protonix*) 40 Mg Tablet., 40 MG PO DAILY, TAB 04/17/17 Acetaminophen (TYLENOL 325 MG TAB) 325 Mg Tab, 325 MG PO Q4 Y for PAIN AND OR ELEVATED TEMP, TAB 04/17/17 Apixaban* (Eliquis*) 2.5 Mg Tablet, 2.5 MG PO BID, TAB 04/17/17 Metoprolol Succinate* (Toprol XL*) 25 Mg Tab.sr.24h, 25 MG PO BID, #30 TAB 04/17/17 Insulin Degludec (Tresiba Flextouch U-200) 200 Unit/1 Ml Insuln.pen, 34 UNIT SQ QAM 03/01/17 Sitagliptin* (Januvia*) 100 Mg Tablet, 100 MG PO QAM, #30 TAB 03/01/17 Metformin Hcl* (Metformin Hcl* ER) 750 Mg Tab.sr.24h, 750 MG PO QAM, #30 TAB 03/01/17 Atorvastatin* (Atorvastatin*) 40 Mg Tablet, 40 MG PO QHS, #30 TAB 03/01/17 Donepezil* (Aricept*) 5 Mg Tablet, 5 MG PO QHS, TAB 03/01/17 Diclofenac Sodium* (Diclofenac Sodium*) 75 Mg Tablet.dr, 75 MG PO DAILY, #60 TAB 03/01/17 Aspirin* (Aspirin* EC) 81 Mg Tablet.dr, 81 MG PO DAILY, TAB 03/01/17 Valsartan* (Diovan*) 80 Mg Tablet, 80 MG PO DAILY, TAB 03/01/17 Primary Care Provider Doris Diehl MD Time spent on discharge: < 30 minutes Pending Labs Laboratory Tests Test 04/25/17 17:26 04/25/17 20:03 04/25/17 20:42 04/26/17 04:48 Bedside Glucose 84mg/dL (70-220) 87mg/dL (70-220) 92mg/dL (70-220) Sodium Level 144mmol/L (135-144) Potassium Level 3.7mmol/L (3.5-5.1) Chloride Level 105mmol/L (97-110) Carbon Dioxide Level 34mmol/L (21-31) Anion Gap 9 (8-16) Blood Urea Nitrogen 21mg/dl (7-20) Creatinine 0.99mg/dl (0.44-1.00) Glucose Level 78mg/dl (70-220) Calcium Level 8.9mg/dl (8.4-10.2) Test 04/26/17 05:58 04/26/17 08:04 04/26/17 11:56 Bedside Glucose 102mg/dL (70-220) 84mg/dL (70-220) 94mg/dL (70-220) KELLY MEYER Apr 26, 2017 12:19
--- NOTE | 2017-04-26 12:24 | PDOCDIS ---
Discharge Instructions CONDITION Patient Condition: Stable HOME CARE INSTRUCTIONS: Special Diet: 1800 ADA, 2 gm NA , low chol, low fat, renal diet ACTIVITY: Activity Restrictions: Slowly Increase Activity Rest between Activity Avoid heavy lifting Do not operate Machinery Do not operate Power Tool FOLLOW UP/APPOINTMENTS Follow-up Plan Call 911 or transfer to the nearest hospial if symptoms get worse. KELLY MEYER Apr 26, 2017 12:24
[2017-04-26 14:00] VITALS: BP 148/75; RESP 16
--- NOTE | 2017-04-26 18:51 | CONS ---
Date/Time of Note Date/Time of Note DATE: 04/26/17 TIME: 12:50 Assessment/Plan Assessment/Plan Chief Complaint/Hosp Course SUBJECTIVE DATA: No acute changes. Looks comfortable, afebrile OBJECTIVE DATA: GENERAL: Fragile, elderly woman in no distress. HEENT: Head atraumatic, normocephalic. Sclerae anicteric. Buccal mucosa dry. NECK: Supple. RESPIRATORY: Chest rise symmetrical. Breath sounds diminished at the bases. HEART: S1, S2. ABDOMEN: Soft, bowel sounds present. EXTREMITIES: Without cyanosis. ASSESSMENT: 1. Resolving encephalopathy. 2. Acute renal failure. 3. Dementia. 4. Diabetes. 5. Chronic kidney disease. 6. History of congestive heart failure. PLAN: Clinically unchanged, stable off abx, pending dc staff Problems: Consultation Date/Type/Reason Admit Date/Time Apr 17, 2017 at 00:30 Initial Consult Date 04/17/17 Type of Consultation: id Exam/Review of Systems Vital Signs Vitals Vital Signs Date Time Temp Pulse Resp B/P Pulse Ox O2 Delivery O2 Flow Rate FiO2 04/26/17 14:06 3.0 04/26/17 14:06 81 24 95 Nasal Cannula 04/26/17 14:00 98.7 148/75 Intake and Output 04/25/17 04/25/17 04/26/17 15:00 23:00 07:00 Intake Total 775 ml 1155 ml Output Total 1050 ml Balance 775 ml 105 ml Results Result Diagram: 04/25/17 1045 04/26/17 0448 Results 24 hrs Laboratory Tests Test 04/25/17 20:03 04/25/17 20:42 04/26/17 04:48 04/26/17 05:58 Bedside Glucose 87 92 102 Sodium Level 144 Potassium Level 3.7 Chloride Level 105 Carbon Dioxide Level 34 H Anion Gap 9 Blood Urea Nitrogen 21 H Creatinine 0.99 Glucose Level 78 Calcium Level 8.9 Test 04/26/17 08:04 04/26/17 11:56 Bedside Glucose 84 94 HAO CUTLER NP Apr 26, 2017 18:51
--- NOTE | 2017-04-26 19:21 | CONS ---
Date/Time of Note Date/Time of Note DATE: 04/26/17 TIME: 19:20 Assessment/Plan Assessment/Plan Chief Complaint/Hosp Course s/p DEHYDRATION POSS DRUG INDUCED RENAL FAILURE DM HTN CKD plan continue same Problems: Consultation Date/Type/Reason Admit Date/Time Apr 17, 2017 at 00:30 Initial Consult Date 04/17/17 Type of Consultation: renal 24 HR Interval Summary Constitutional: improved Exam/Review of Systems Vital Signs Vitals Vital Signs Date Time Temp Pulse Resp B/P Pulse Ox O2 Delivery O2 Flow Rate FiO2 04/26/17 14:06 3.0 04/26/17 14:06 81 24 95 Nasal Cannula 04/26/17 14:00 98.7 148/75 Intake and Output 04/25/17 04/25/17 04/26/17 15:00 23:00 07:00 Intake Total 775 ml 1155 ml Output Total 1050 ml Balance 775 ml 105 ml Exam Cardiovascular: regular rate and rhythm Gastrointestinal: bowel sounds (+), soft Musculoskeletal: nl extremities to inspection Extremities: edema (+) Results Result Diagram: 04/25/17 1045 04/26/17 0448 Results 24 hrs Laboratory Tests Test 04/25/17 20:03 04/25/17 20:42 04/26/17 04:48 04/26/17 05:58 Bedside Glucose 87 92 102 Sodium Level 144 Potassium Level 3.7 Chloride Level 105 Carbon Dioxide Level 34 H Anion Gap 9 Blood Urea Nitrogen 21 H Creatinine 0.99 Glucose Level 78 Calcium Level 8.9 Test 04/26/17 08:04 04/26/17 11:56 Bedside Glucose 84 94 CADE GRACIA MD Apr 26, 2017 19:21
[2017-04-26] MEDS ORDERED: INSULIN GLARGINE [LANtus] 3 ML PEN SC SCH (20:00)
== END 2017-04-26 16:21 | DRG 682 ==
LOC: E/R 21:24 → PP2 04-17 00:30
PROVIDERS: ADMIT Internal Medicine; ATTEND Internal Medicine
DX: N17.9 Acute kidney failure, unspecified (principal); G93.40 Encephalopathy, unspecified; E87.0 Hyperosmolality and hypernatremia; E11.22 Type 2 diabetes mellitus with diabetic chronic kidney disease; I48.91 Unspecified atrial fibrillation; F03.90 Unspecified dementia, unspecified severity, without behavioral disturbance, psychotic disturbance, mood disturbance, and anxiety; E86.0 Dehydration; I13.0 Hypertensive heart and chronic kidney disease with heart failure and stage 1 through stage 4 chronic kidney disease, or unspecified chronic kidney disease; I50.9 Heart failure, unspecified; N39.0 Urinary tract infection, site not specified; D64.9 Anemia, unspecified; E78.5 Hyperlipidemia, unspecified; N18.9 Chronic kidney disease, unspecified; Z87.891 Personal history of nicotine dependence; Z79.01 Long term (current) use of anticoagulants; Z87.19 Personal history of other diseases of the digestive system; E87.5 Hyperkalemia; B95.8 Unspecified staphylococcus as the cause of diseases classified elsewhere; N14.1 Nephropathy induced by other drugs, medicaments and biological substances; T50.995A Adverse effect of other drugs, medicaments and biological substances, initial encounter
CPT/HCPCS: 36415; 71010; 76775; 80048; 80053; 81003; 82570; 82962; 83036; 84155; 84300; 84484; 85025; 87081; 87086; 89190; 93005; 94640; 96374; J1940; J0696; J1815; J7030; J7040; J7042

== ENCOUNTER 2017-09-06 23:37 | Inpatient (IN) | END 2017-09-28 18:23 | DRG 481 ==

== ENCOUNTER 2017-12-06 16:12 | Inpatient (IN) | END 2017-12-19 14:30 | DRG 871 ==

== ENCOUNTER 2018-03-21 05:32 | Inpatient (IN) | END 2018-04-14 20:49 | DRG 870 ==

== ENCOUNTER 2018-11-09 09:57 | Emergency (ER) | payer MEDICARE, OTHER ==
[~2018-11-09] VITALS: Ht 162.6 cm; Wt 68.2 kg
[~2018-11-09 09:57] MED LIST changes: +ACET325T33 PO; +ALBU2.5V3 NEB; +AMIO200T4 PO; +ASC500 PO; -ASPI-664 PO; +ASPI325T30 PO; +BENA10TA4 PO; +CRAN3875 PO; +CRAN425C6 PO; -DICL75TA2 PO; +DIGO125T PO; -DONE5TAB46 PO; +FAMO20TA18 PO; +FER325 PO; +GUAI5SYR2 PO; +HYDR-4011 PO; -INSU200I4 SQ; +LANT3I SC; -METF750T2 PO; +METO-319 PO; +ONDA4TAB8 PO; +PANT40TA3 PO; +SENN-120 PO; +SERT50TA PO; -SITA100T8 PO; +TYL500 PO; -VALS80TA2 PO
[2018-11-09 10:06] VITALS: Ht 162.6 cm; Wt 68.2 kg
[2018-11-09] MEDS ORDERED: HYDROCODONE/APAP (10/325) TAB PO ONE (10:30)
[2018-11-09] MEDS ORDERED: HYDROmorphONE 0.5 MG/0.5 ML SYG IM STA (11:41)
[2018-11-09] MEDS ORDERED: ONDANSETRON (ODT) 4 MG TAB ODT STA (11:41)
[2018-11-09] MEDS ORDERED: ASPI81TA52 PO (12:01)
[2018-11-09] MEDS ORDERED: LORA-441 PO (12:02)
[2018-11-09] MEDS ORDERED: DOCU-144 PO (12:03)
[2018-11-09] MEDS ORDERED: ESCI5TAB PO (12:03)
[2018-11-09] MEDS ORDERED: INSU100I27 SQ (12:04)
[2018-11-09] MEDS ORDERED: LEVO100T82 PO (12:04)
[2018-11-09] MEDS ORDERED: FER325 PO (12:04)
[2018-11-09] MEDS ORDERED: METF500T24 PO (12:06)
[2018-11-09] MEDS ORDERED: METO25TA4 PO (12:06)
[2018-11-09] MEDS ORDERED: LINA5TAB PO (12:06)
[2018-11-09] MEDS ORDERED: OMEP20CA16 PO (12:07)
[2018-11-09] MEDS ORDERED: MULT-761 PO (12:08)
[2018-11-09] MEDS ORDERED: ACET-141 PO (12:14)
[2018-11-09] MEDS ORDERED: HYDR-4011 PO (12:33)
--- NOTE | 2018-11-09 12:36 | ERD ---
ER Documentation Chief Complaint Chief Complaint [facility] HC, fall 0700, -ko, no head injury. unwitness per EMS HPI This is a 83-year-old female who is here for a fall. The patient slid out of her bed onto her buttocks she is complaining of pain to her upper lumbar region in the midline. This happened just prior to arrival. The patient is able to stand but is painful. No loss of bowel or bladder no head injury no neck pain no leg numbness or weakness. Pain is sharp worse with movement better with rest no hip pain ROS All systems reviewed and are negative except as per history of present illness. Medications Home Meds Active Scripts Hydrocodone/Acetaminophen ([place] 5-325 Tablet) 1 Each Tablet, 1 TAB PO Q6H PRN for PAIN, #18 TAB Prov:JOSE A HENLEY DO 11/09/18 Reported Medications Acetaminophen* (Acetaminophen*) 500 MG Extra Strength Tablet, 1000 MG PO BID PRN for MILD PAIN(1-3)OR ELEVATED TEMP, TAB 11/09/18 Multivitamin (MULTI VITAMIN DAILY) 1 Each Tablet, 1 TAB PO DAILY, TAB 11/09/18 Omeprazole* (Omeprazole*) 20 Mg Capsule.dr, 20 MG PO DAILY, #30 CAP 11/09/18 Metoprolol Tartrate* (Lopressor*) 25 Mg Tablet, 25 MG PO BID, #60 TAB 11/09/18 Metformin Hcl* (Metformin Hcl*) 500 Mg Tablet, 500 MG PO WITH BREAKFAST DINNE, #60 TAB 11/09/18 Linagliptin (TRADJENTA) 5 Mg Tablet, 5 MG PO DAILY, TAB 11/09/18 Levothyroxine Sodium* (Levoxyl*) 100 Mcg Tablet, 100 MCG PO BEFORE BREAKFAST, #30 TAB 11/09/18 Insulin Detemir (Levemir Flextouch) 100 Unit/1 Ml Insuln.pen, 5 UNIT SQ BID, EA 11/09/18 Ferrous Sulfate* (Ferrous Sulfate*) 325 Mg Tabec, 325 MG PO DAILY, TAB 11/09/18 Escitalopram Oxalate* (Lexapro*) 5 Mg Tablet, 5 MG PO DAILY, #30 TAB TUESDAY THRU Tuesday11/09/18 Docusate Sodium* (Colace*) 100 Mg Capsule, 200 MG PO QHS, #30 CAP 11/09/18 Lorazepam* (Ativan*) 0.5 Mg Tablet, 0.5 MG PO HS PRN for SLEEP, #30 TAB TUESDAY THRU Tuesday11/09/18 Aspirin (Low Dose Aspirin) 81 Mg Tablet.dr, 81 MG PO DAILY, #30 TAB 11/09/18 Ascorbic Acid (Vitamin C) 500 Mg Tab, 500 MG PO DAILY, TAB 03/21/18 Cran/Vitc/Mannose/Inulin/Brom (Uti-Stat Liquid) 3,875 Mg/30 Ml Liquid, 30 ML PO DAILY 03/21/18 Acetaminophen* (Tylenol*) 500 Mg Tab, 1000 MG PO Q4H PRN for PAIN LEVEL 4-6/10, TAB 03/21/18 Acetaminophen* (Tylenol*) 325 Mg Tablet, 650 MG PO Q4H PRN for MILD PAIN LEVEL 1-3, TAB 03/21/18 Cranberry Extract (Cranberry) 425 Mg Capsule, 425 MG PO DAILY, CAP 03/21/18 Discontinued Reported Medications Sertraline Hcl* (Zoloft*) 50 Mg Tablet, 50 MG PO DAILY, #30 TAB EXCEPT Tuesday03/21/18 Ondansetron Hcl* (Zofran*) 4 Mg Tablet, 4 MG PO Q6H PRN for NAUSEA AND OR VOMITING, TAB 03/21/18 Metoprolol Succinate* (Toprol XL*) 50 Mg Tab.er.24h, 50 MG PO BID, #30 TAB HOLD IF SBP BELOW 110 OR HR BELOW 60 03/21/18 Sennosides* (Senna Lax*) 8.6 Mg Tablet, 2 TAB PO QHS, TAB 03/21/18 Guaifenesin-Dextromethorphan* (Robitussin* DM) 100MG/10MG/5ML Syrup, 5 ML PO Q4H PRN for COUGH, ML 03/21/18 Pantoprazole* (Protonix*) 40 Mg Tablet.dr, 40 MG PO DAILY, TAB 03/21/18 Famotidine* (Famotidine*) 20 Mg Tablet, 20 MG PO BID, #60 TAB 03/21/18 Hydrocodone/Acetaminophen (Kingman 5-325 Tablet) 1 Each Tablet, 1 EACH PO Q6H for PAIN 7-05/01, TAB 03/21/18 Benazepril Hcl* (Benazepril Hcl*) 10 Mg Tablet, 10 MG PO DAILY, #30 TAB HOLD IF SBP BELOW 110 OR HR BELOW 60 03/21/18 Atorvastatin* (Atorvastatin*) 40 Mg Tablet, 40 MG PO QHS, #30 TAB 03/21/18 Insulin Glargine* (Lantus*) 100 Unit/Ml Soln, 15 UNIT SC QHS, #1 VIAL 03/21/18 Ferrous Sulfate* (Ferrous Sulfate*) 325 Mg Tabec, 325 MG PO DAILY, TAB 03/21/18 Digoxin* (Digitek*) 125 Mcg Tablet, 0.125 MG PO DAILY, TAB 03/21/18 Aspirin* (Aspirin*) 325 Mg Tablet, 325 MG PO DAILY for CVA, TAB 03/21/18 Amiodarone Hcl* (Amiodarone Hcl*) 200 Mg Tablet, 200 MG PO BID, #60 TAB HOLD IF SBP BELOW 110 OR HR BELOW 60 03/21/18 Albuterol Sulfate* (Albuterol Sulfate* Neb) 0.083%-3 Ml Neb, 1.25 MG NEB Q6H PRN for WHEEZING AND SOB, #30 VIAL 03/21/18 Allergies Allergies: Coded Allergies: No Known Allergy (Unverified , 11/09/18) PMhx/Soc Anesthesia Reaction: No Hx Neurological Disorder: No Hx Respiratory Disorders: Yes (COPD, RESP. FAILURE) Hx Cardiac Disorders: Yes (CHF) Hx Psychiatric Problems: No Hx Miscellaneous Medical Probl: No Hx Alcohol Use: No Hx Substance Use: No Hx Tobacco Use: No Smoking Status: Never smoker FmHx Family History: No coronary disease Physical Exam Vitals Vital Signs Date Temp Pulse Resp B/P (MAP) Pulse Ox O2 O2 Flow FiO2 Time Delivery Rate 11/09/18 82 22 140/86 96 Nasal 2.0 11:49 (104) Cannula 11/09/18 98.2 76 20 173/73 95 10:06 (106) Physical Exam Const: Well-developed, well-nourished Head: Atraumatic, normocephalic Eyes: Normal Conjunctiva, PERRLA, EOMI, normal sclera, no nystagmus ENT: Normal External Ears, Nose and Mouth, moist mucus membranes. Neck: Full range of motion. No meningismus, no lymphadenopathy. Resp: Clear to auscultation bilaterally, no wheezing, rhonchi, rales Cardio: Regular rate and rhythm, no murmurs, S1 S2 present Abd: Soft, non tender x 4, non distended. Normal bowel sounds, no guarding or rebound, no pulsitile abdominal masses or bruits Skin: No petechiae or rashes, no ecchymosis , no maculopapular rash Back: Midline back pain at the L2-3 region, negative straight leg test no saddle anesthesia Ext: No cyanosis, or edema, FROM x 4, normal inspection, neurovascularly intact x 4 Neur: Awake and alert, STR 5/5 x 4, sensation intact x 4, no focal findings, cerebellum intact Psych: Normal Mood and Affect Results 24 hrs Current Medications Medications Dose Sig/All Start Time Status Last (Trade) Ordered Route PRN Stop Time Admin Dose Reason Admin 1 tab ONCE ONCE 11/09/18 DC 11/09/18 Acetaminophen PO 10:30 10:50 / 11/09/18 10:31 Hydrocodone Bitart ([place] (10325)) Ondansetron 4 mg ONCE STAT 11/09/18 DC 11/09/18 HCl (Zofran ODT 11:41 11:48 Odt) 11/09/18 11:43 1 mg ONCE STAT 11/09/18 DC 11/09/18 Hydromorphone IM 11:41 11:48 HCl 11/09/18 11:43 (Dilaudid) Procedures/MDM Patient: BENJAMÍN GARY : 10/01/1935 Age: 83 Sex: F MR #: [id number] DOS: 11/09/18 1022 Ordering MD: JOSE A HENLEY DO Location: E/R Room/Bed: PROCEDURE: CT lumbar spine without contrast. CLINICAL INDICATION: Back trauma/injury TECHNIQUE: CT of the lumbar spine without contrast was performed on a multidetector CT scanner, with multiplanar reformats. One or more of the following dose reduction techniques were used: Automated exposure control, adjustment in mA and / or kV according to patient size, use of iterative reconstructive technique. CTDIvol = 15 mGy and DLP = 485 mGy-cm. DICOM images are available. COMPARISON: CT abdomen pelvis 12/11/2017 FINDINGS: There is a mild acute L2 compression fracture without retropulsion. No other fracture is identified. There is generalized osteopenia. The rest of the vertebral bodies are maintained in height. There is preservation of the lordosis of the lumbar spine. There is mild dextroconvex lumbar scoliosis. There are multilevel anterior osteophytes down to the L4-5 level. Disc spaces are maintained in height. Noted is underlying congenital / foraminal narrowing of the lumbar spinal canal. Atherosclerotic calcifications are noted. Additional findings by levels: T12-L1: Mild posterior disc bulging. No significant acquired central canal stenosis or foraminal narrowing identified. L1-L2: Mild posterior disc bulging and facet arthropathy. No significant acquired central canal stenosis or foraminal narrowing identified. L2-L3: Posterior disc bulging and mild facet arthropathy. Mild central canal stenosis identified. No significant foraminal narrowing seen. L3-L4: Posterior disc bulging and mild facet arthropathy with ligamentum flavum hypertrophy. Moderate to severe central canal stenosis with lateral recess narrowing, and moderate left foraminal narrowing identified. L4-L5: Posterior disc bulging and mild to moderate facet arthropathy with li gamentum flavum hypertrophy. Severe central canal stenosis with lateral recess narrowing, moderate right and mild left foraminal narrowing identified. L5-S1: Posterior disc bulging and moderate to severe facet arthropathy with ligamentum flavum hypertrophy. Mild to moderate central canal stenosis with lateral recess narrowing on the right identified. No significant foraminal narrowing seen. IMPRESSION: 1. Acute mild L2 compression fracture. 2. Lumbar spondylosis/degenerative enthesopathy as detailed above. 3. Mild dextroconvex lumbar scoliosis. 4. Osteopenia. RPTAT: VV .Tao Grant MD, Date Time Electronically viewed and signed by .Tao Grant MD, MD on 11/09/2018 11:20 .O/ CC: JOSE A HENLEY DO [phone] Patient has a mild L2 compression fracture. We will put her in a brace and sent her back to the rehab center Nonsurgical at this time just needs some better rest follow-up f with Orth Departure Diagnosis: Primary Impression: Compression fracture of L2 vertebra Encounter type: initial encounter Fracture type: closed Qualified Codes: S32.020A - Wedge compression fracture of second lumbar vertebra, initial en counter for closed fracture Condition: Stable Patient Instructions: Back Fracture (Compression Fracture) Referrals: OLVIN MCMAHAN MD, APOSTOLOS A. DO Nov 09, 2018 12:36
[2018-11-09 13:21] VITALS: BP 115/68; PULSE 71; RESP 20
== END 2018-11-09 13:25 | disposition home or self-care (01) ==
LOC: E/R 09:57
DX: S32.020A Wedge compression fracture of second lumbar vertebra, initial encounter for closed fracture (principal); R40.2142 Coma scale, eyes open, spontaneous, at arrival to emergency department; R40.2362 Coma scale, best motor response, obeys commands, at arrival to emergency department; R40.2252 Coma scale, best verbal response, oriented, at arrival to emergency department; J44.9 Chronic obstructive pulmonary disease, unspecified; I50.9 Heart failure, unspecified; W19.XXXA Unspecified fall, initial encounter; Y92.9 Unspecified place or not applicable; Z79.82 Long term (current) use of aspirin; Z79.4 Long term (current) use of insulin
CPT/HCPCS: 72131; 96372; 99285; J1170